=== PATIENT | female | born 1975 | race Caucasian/White ===

== ENCOUNTER 2016-08-11 14:20 | Outpatient (CLI) | payer BC, MEDICAID ==
[~2016-08-11] VITALS: Ht 165.1 cm; Wt 91.6 kg
[~2016-08-11 14:20] MED LIST: INSU100I13 SQ; INSU100I14 SQ
== END 2016-08-11 14:34 ==
LOC: PREOP 14:20
PROVIDERS: ATTEND Surgery
DX: Z01.818 Encounter for other preprocedural examination (principal); R11.2 Nausea with vomiting, unspecified; K92.1 Melena

== ENCOUNTER 2016-08-14 11:17 | Day surgery (SDC) | payer BC, MEDICAID ==
[2016-08-14 11:25] VITALS: BP 142/88
[2016-08-14] MEDS ORDERED: NALOXONE 0.4 MG/ML 1 ML (NARCAN) VIAL IVP PRN (11:30)
[2016-08-14] MEDS ORDERED: NS IV 500 ML 500 ML IV ONE (11:30)
[2016-08-14] MEDS ORDERED: FLUMAZENIL (ROMAZICON) 0.1 MG/ML 5 ML VIAL INJ PRN (11:30)
[2016-08-14] MEDS ORDERED: HURRICAINE EXT TUBE (BENZOCAINE) ONE (11:33)
--- NOTE | 2016-08-14 12:14 | Conscious Sedation/ASA ---
Conscious Sedation Pre-Proced Time Reviewed: 12:14 ASA Class: 2 Airway Mallampati Classification: ([place] appropriate class) I. II. III, IV Lungs Heart ASA score ASA 1: a normal healthy patient ASA 2: a patient with a mild systemic disease (mid diabetes, controlled hypertension, obesity ASA 3: a patient with a severe systemic disease that limits activity (angina , COPD, prior Myocardial infarction) ASA 4: a patient with an incapacitating disease that is a constant threat to life (CHF, renal failure) ASA 5: a moribund patient not expected to survive 24 hrs. (ruptured aneurysm) ASA 6: a declared brain patient whose organs are being harvested. For emergent operations, add the letter E after the classification Grade 2 Sedation Plan: Discussed options with patient/fam Note The patient is an appropriate candidate to undergo the planned procedure, sedation, and anesthesia. The patient immediately re-assessed prior to indication. KATELYNN DIAZ MD Aug 14, 2016 12:14 pm
--- NOTE | 2016-08-14 12:14 | Progress Note-Pre Operative ---
Pre-Operative Progress Note H&P Reviewed The H&P was reviewed, patient examined and no changes noted. Date H&P Reviewed: Aug 14, 2016 Time H&P Reviewed: 12:14 Pre-Operative Diagnosis: nausea vomiting. Blood in stools KATELYNN DIAZ MD Aug 14, 2016 12:14 pm
[2016-08-14] MEDS: fentaNYL INJECTION 100 MCG/2 ML AMP IVP PRN ×4 (12:15→12:35)
[2016-08-14] MEDS: MIDAZOLAM 2 MG/2 ML (VERSED) VIAL IVP PRN ×4 (12:16→12:32)
--- NOTE | 2016-08-14 12:52 | Progress Note-Post Operative ---
Post-Operative Progess Note Pre-Operative Diagnosis nausea vomiting. Blood in stools Post-Operative Diagnosis EGD: hiatal hernia with grade 2 esophagitis. Distal gastric ulcers 3 COLONOSCOPY: internal hemorrhoids Post-Op Procedure Note Date of Procedure: Aug 14, 2016 Name of Procedure: EGD with biopsy of gastric ulcer Colonoscopy to cecum Anesthesia Type sedation Specimen(s) collected mucosa of gastric ulcer KATELYNN DIAZ MD Aug 14, 2016 12:52 pm
[2016-08-14] MEDS ORDERED: PANT40TA2 PO (12:53)
--- NOTE | 2016-08-14 12:56 | Discharge Inst-Simple/Standard ---
Discharge Inst-Standard Discharge Medications New, Converted or Re-Newed RX: RX on Chart Patient Instructions/Follow Up Plan of Care/Instructions/FU: follow-up with Dr. Charla Tyson Activity as Tolerated: Yes Discharge Diet: No Restrictions KATELYNN DIAZ MD Aug 14, 2016 12:56 pm
--- NOTE | 2016-08-14 13:18 | PROCEDURE REPORT ---
PROCEDURE PHYSICIAN: KATELYNN DIAZ DATE OF PROCEDURE: 08/14/2016 PREOPERATIVE DIAGNOSIS: 1. Upper GI endoscopy with biopsy of gastric ulcer. 2. Colonoscopy. SURGEON: Chilo INDICATION FOR THE PROCEDURE: This lady came in for an upper endoscopy to evaluate epigastric pain with nausea and vomiting and for colonoscopy to investigate rectal bleeding. It is notable that she is HIV positive. Informed consent was obtained after reviewing the procedures in detail. DESCRIPTION OF PROCEDURE: 1. UPPER GI ENDOSCOPY/BIOPSY OF GASTRIC ULCER: She was placed in left lateral decubitus position and her vital signs were monitored. Conscious sedation was achieved using Versed and fentanyl. The flexible gastroscope was introduced down the esophagus, past the stomach, into the proximal duodenum. FINDINGS: ESOPHAGUS: A short hiatal hernia with grade 2 esophagitis. STOMACH: A total of 3 distal gastric ulcers ranging in diameter from 2 to 4 mm were found. Photo-documentation was obtained, followed by biopsy of the largest ulcer in a standard fashion. DUODENUM: Normal. She tolerated the procedure well and was turned around in preparation for colonoscopy. IMPRESSION: 1. Nausea and epigastric pain. 2. Distal gastric ulcers found. 3. Biopsies pending. 2. COLONOSCOPY: Digital rectal examination was unremarkable. The colonoscope was then introduced into the rectum and advanced to the cecum. The scope was then withdrawn slowly and the mucosa examined in a systematic fashion. FINDINGS: 1. Internal hemorrhoids, the source of her bleeding. 2. No polyps were found. She tolerated the procedures well and was taken back to the nursing area in a stable condition. IMPRESSION: Rectal bleeding due to hemorrhoids. Job ID: [id number] Dictated Date: 08/14/2016 12:48:16 Poultry Hatchery Man Date: 08/14/2016 13:10:18 / shena CHEUNG
[2016-08-14 13:49] VITALS: BP 117/87
[2016-08-14 13:50] VITALS: BP 117/87
--- OUTSIDE RECORDS SUMMARY | 2016-08-29 18:04 | XMS REPORT ---
Author Author Karen Oliver [facility] Address [address], [place] [id number] Care Team Providers Care Trade Facilitator Name Role Phone Karen Oliver Unavailable PROBLEMS Type Condition ICD9-CM Code LNM88-FQ Code Onset Dates Condition Status SNOMED Code Problem Cigarette nicotine dependence, uncomplicated F17.210 poorly- controlled 60414106 Problem Bloody feces K92.1 Active 630538270 Problem Back pain with left-sided sciatica M54.32 poorly-controlled 999278976 Problem Asymptomatic human immunodeficiency virus [HIV] infection status Z21 well-controlled 75761393 Problem Chronic viral hepatitis C B18.2 well-controlled 683643177 Problem Gastro-esophageal reflux disease without esophagitis K21.9 poorly-controlled 993864088 Problem Projectile vomiting with nausea R11.12 Active 3464080 Problem Type 2 diabetes mellitus with diabetic 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 poorly-controlled 45350338 Problem 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
--- OUTSIDE RECORDS SUMMARY | 2016-08-29 18:04 | XMS REPORT | Continuity of Care Document ---
Author Author [facility] Organization [facility] Address Unknown Phone Unavailable Care Team Providers Care Insulator Helper Name Role Phone Self, Referral PCP Unavailable Source Comments Some departments are not documenting in the electronic medical record. If you do not see the information that you expected, contact Release of Information in the Health Information Management department at [phone] for further assistance in locating additional records.[facility] Active Allergies and Adverse Reactions Allergen Noted Date Severity Reactions Comments Dilaudid 12/15/2009 ITCHING Current Medications Prescription Sig. Disp. Refills Start End Date Status Date Aspirin 81 mg Tab Take by mouth. Active INSULIN Inject 70 Units into Active GLARGINE,HUM.REC.ANLOG area(s) as directed Twice (LANTUS SC) Daily. INSULIN LISPRO (HUMALOG Inject 25 Units into Active SC) area(s) as directed Three Times Daily. quinapril,+, (ACCUPRIL) Take 40 mg by mouth At Active 20 mg tablet Bedtime Daily. atorvastatin (LIPITOR) 20 Take 20 mg by mouth Active mg tablet Daily. albuterol (PROVENTIL) 2 Take 2 mg by mouth Three Active mg tablet Times Daily. lorazepam (ATIVAN) 0.5 mg Take 0.5 mg by mouth Active tablet Twice Daily. Active Problems Not on file Social History Tobacco Use Types Packs/Day Years Used Date Current Every Day Smoker 0.25 Alcohol Use Drinks/Week oz/Week Comments No Last Filed Vital Signs Vital Sign Reading Time Taken Blood Pressure 183/82 01/17/2011 8:52 PM CDT Pulse 89 12/15/2009 8:40 PM CDT Temperature 36.9 C (98.4 F) 01/17/2011 8:52 PM CDT Respiratory Rate - - Height - - Weight - - Body Mass Index - - Oxygen Saturation 100% 01/17/2011 8:52 PM CDT Plan of Care Health Maintenance Due Date Last Done Comments Physical (Comprehensive) 1983 Exam Pertussis Vaccine 1987 Tetanus Vaccine 1993 Cervical Cancer Screening 1997 Breast Cancer Screening 2016 Influenza Vaccine 01/19/2017 Results from Last 3 Months Not on file
--- OUTSIDE RECORDS SUMMARY | 2016-08-29 18:05 | XMS REPORT ---
Author Author Maddie Souza [facility] Address [address], [place] [id number] Care Team Providers Care Neurophysiologist Name Role Phone Maddie Souza Unavailable PROBLEMS Type Condition ICD9-CM Code WMB85-XI Code Onset Dates Condition Status SNOMED Code Problem Cigarette nicotine dependence, uncomplicated F17.210 poorly- controlled 60025819 Problem Bloody feces K92.1 Active 971100735 Problem Back pain with left-sided sciatica M54.32 poorly-controlled 596664177 Problem Asymptomatic human immunodeficiency virus [HIV] infection status Z21 well-controlled 46088827 Problem Chronic viral hepatitis C B18.2 well-controlled 592585618 Problem Gastro-esophageal reflux disease without esophagitis K21.9 poorly-controlled 750503604 Problem Projectile vomiting with nausea R11.12 Active 4487185 Problem Type 2 diabetes mellitus with diabetic 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 poorly-controlled 53281077 Problem 

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
--- OUTSIDE RECORDS SUMMARY | 2016-08-29 18:05 | XMS REPORT ---
Author Author Maddie Souza [facility] Address [address], [place] [address] Care Team Providers Care Environmental Maintenance Worker Name Role Phone Maddie Souza Unavailable PROBLEMS Type Condition ICD9-CM Code [id number] Code Onset Dates Condition Status SNOMED Code Problem Cigarette nicotine dependence, uncomplicated F17.210 poorly- controlled 91140863 Problem Bloody feces K92.1 Active 075192565 Problem Back pain with left-sided sciatica M54.32 poorly-controlled 089653453 Problem Asymptomatic human immunodeficiency virus [HIV] infection status Z21 well-controlled 06723171 Problem Chronic viral hepatitis C B18.2 well-controlled 114503421 Problem Gastro-esophageal reflux disease without esophagitis K21.9 poorly-controlled 470046125 Problem Projectile vomiting with nausea R11.12 Active 5833500 Problem Type 2 diabetes mellitus with diabetic 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 poorly-controlled 77988823 Problem terminal supervisor 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.4 well-controlled [id number] ALLERGIES Unknown Allergies SOCIAL HISTORY No smoking Hx information available PLAN OF CARE VITAL SIGNS MEDICATIONS Unknown Medications RESULTS No Results PROCEDURES No Known procedures IMMUNIZATIONS No Known Immunizations
== END 2016-08-14 13:57 | disposition home or self-care (01) ==
LOC: DELPENDDIS → ENDO 11:17 → DELPENDDIS 13:50 → ENDO 13:57
PROVIDERS: ATTEND Surgery
DX: K64.8 Other hemorrhoids (principal); K25.7 Chronic gastric ulcer without hemorrhage or perforation; K20.8 Other esophagitis; Z21 Asymptomatic human immunodeficiency virus [HIV] infection status
CPT/HCPCS: 82962; 88305

== ENCOUNTER 2017-10-18 12:19 | Emergency (ER) | payer BC, MEDICAID ==
[~2017-10-18] VITALS: Ht 165.1 cm; Wt 95.3 kg
[~2017-10-18 12:19] MED LIST changes: +ALBU17AE23; +ASPI-84; +ATOR40TA PO; +BENZ100C8 PO; +DICY20TA57; +DOXY-13; +HYDR100C2 PO; +HYDR25CA92 PO; +INSASP10V; +INSU100C4; +LISI40TA; +LORA-794 PO; +NAPR250T PO; +OXYC-281; +PANT40TA2 PO; +QUIN20TA PO; +TRM50T PO
[2017-10-18 13:09] LABS: BASOPHILS % (AUTO) 0 % (0-10); EOSINOPHILS # (AUTO) 0.1 10^3/uL (0.0-0.3); EOSINOPHILS % (AUTO) 2 % (0-10); HEMATOCRIT 43 % (35-52); LYMPHOCYTES # (AUTO) 2.6 X 10^3 (1.0-4.0); LYMPHOCYTES % (AUTO) 35 % (12-44); MEAN CORPUSCULAR HEMOGLOBIN 30 PG (25-34); MEAN CORPUSCULAR HGB CONC 35 G/DL (32-36); MEAN CORPUSCULAR VOLUME 84 FL (80-99); MEAN PLATELET VOLUME 10.4 FL (7.4-10.4); MONOCYTES # (AUTO) 0.6 X 10^3 (0.0-1.0); MONOCYTES % (AUTO) 8 % (0-12); NEUTROPHILS # (AUTO) 4.2 X 10^3 (1.8-7.8); NEUTROPHILS % (AUTO) 55 % (42-75); PLATELET COUNT 253 10^3/uL (130-400); RED BLOOD COUNT 5.07 10^6/uL (4.35-5.85); WHITE BLOOD COUNT 7.5 10^3/uL (4.3-11.0)
[2017-10-18 13:15] LABS: BILIRUBIN,URINE NEGATIVE (NEGATIVE); CLARITY,URINE CLEAR; COLOR,URINE YELLOW; GLUCOSE, URINE (UA) 3+ (NEGATIVE); KETONES,URINE NEGATIVE (NEGATIVE); LEUKOCYTE ESTERASE ,URINE 1+ (NEGATIVE); NITRITE,URINE NEGATIVE (NEGATIVE); PH,URINE 6.5 (5-9); PROTEIN,URINE 1+ (NEGATIVE); UROBILINOGEN,URINE NORMAL (NORMAL)
[2017-10-18 13:25] LABS: BACTERIA,URINE NEGATIVE /HPF; RBC,URINE RARE /HPF; WBC,URINE RARE /HPF
[2017-10-18 13:27] LABS: ALANINE AMINOTRANSFERASE 16 U/L (0-55); ALBUMIN 4.2 GM/DL (3.2-4.5); ALKALINE PHOSPHATASE 79 U/L (40-136); BILIRUBIN,TOTAL 0.6 MG/DL (0.1-1.0); BUN/CREATININE RATIO 16; CALCIUM 9.7 MG/DL (8.5-10.1); CARBON DIOXIDE 25 MMOL/L (21-32); CHLORIDE 103 MMOL/L (98-107); CREATININE SERUM 0.68 MG/DL (0.60-1.30); GFR ESTIMATED > 60; GLUCOSE 212 MG/DL (70-105); POTASSIUM 4.5 MMOL/L (3.6-5.0); SODIUM 137 MMOL/L (135-145); TOTAL PROTEIN 7.8 GM/DL (6.4-8.2)
[2017-10-18] MEDS ORDERED: NS IV 1000 ML 1,000 ML IV SCH (13:45)
[2017-10-18] MEDS ORDERED: KETOROLAC 30 MG/ML VIAL IVP ONE (13:45)
[2017-10-18] MEDS ORDERED: ONDANSETRON 4 MG/2 ML (SDV) Z0FRAN IVP ONE (13:45)
--- NOTE | 2017-10-18 13:57 | ED GI ---
General Chief Complaint: Abdominal/GI Problems Stated Complaint: VOMITING Nursing Triage Note: PATIENT HAS HAD MIGRAINE X2 DAYS. LAST NIGHT SHE BEGAN VOMITTING AT 11PM. HAS VOMITTED MULTIPLE TIMES SINCE THEN. SHE ALSO HAS LOW ABDOMINAL CRAMPING. PATIENT RECENTLY DAGNOSED WITH BONE CANCER AND HAS NOT STARTED TREATMENT FOR IT. SHE IS ALSO 3 MONTHS INTO RECOVERY FROM CRACK, METH AND MARIJUANA USE. Sepsis Screen: No Definite Risk Source of Information: Patient Exam Limitations: No Limitations History of Present Illness Date Seen by Provider: October 18, 2017 Time Seen by Provider: 13:30 Initial Comments The patient is a 42-year-old white female who presents with a chief complaint of vomiting. She states that the she developed a headache and then began vomiting last night it approximately 2300. This continued throughout the night. She had a loose stool this morning. She reports that she has not previously had a history of headaches. She states that she was recently diagnosed as having bone cancer at a provider in [place]. This is not defined at this point and she has more testing to be done including a bone marrow biopsy. She has hepatitis C for which she took HARVONI and states that she has an undetectable viral load at this point. She has also seen by Dr. Charla Tyson from the [facility] branch for HIV. Timing/Duration: 12-24 Hours Severity/Quality: Moderate Allergies and Home Medications Allergies Coded Allergies: hydromorphone (Verified Allergy, Unknown, b/p and oxygen level drop, ) tramadol (Verified Allergy, Unknown, ANAPHYLAXIS, 08/11/16) Uncoded Allergies: air casts (Allergy, 11/09/16) Home Medications Hydroxyzine Pamoate 25 Mg Capsule, 25 MG PO BID, (Reported) Hydroxyzine Pamoate 100 Mg Capsule, 1 EACH PO HS, (Reported) Insulin Aspart 300 Units/3 Ml Solution, 0 SQ DAILY@1200, (Reported) sliding scale Insuln Asp Prt/Insulin Aspart 300 Units/3 Ml Solution, 30 UNITS SQ BID, ( Reported) Naproxen 250 Mg Tablet, 250 MG PO BID Prescribed by: TALI GOLDSMITH on 06/26/131517 Pantoprazole Sodium 40 Mg Tablet.dr, 40 MG PO DAILY Prescribed by: KATELYNN DIAZ on 08/14/16 1253 Tramadol Hcl 50 Mg Tab, 50 MG PO Q4H Prescribed by: TALI GOLDSMITH on 06/26/13 1518 Patient Home Medication List Home Medication List Reviewed: Yes Review of Systems Constitutional: see HPI EENTM: No Symptoms Reported Respiratory: No Symptoms Reported Cardiovascular: No Symptoms Reported Gastrointestinal: Vomiting Genitourinary: No Symptoms Reported Musculoskeletal: no symptoms reported Skin: no symptoms reported Psychiatric/Neurological: No Symptoms Reported Endocrine: No Symptoms Reported Hematologic/Lymphatic: No Symptoms Reported Past Irotkqo-Sxjhjn-Slquad Hx Patient Social History Drug of Choice: "POT" Type Used: Cigarettes Recent Foreign Travel: No Contact w/Someone Who Travel: No Recent Infectious Disease Expo: No Recent Hopitalizations: No Immunizations Up To Date Date of Pneumonia Vaccine: Feb 18, 2013 Date of Influenza Vaccine: Feb 19, 2016 Seasonal Allergies Seasonal Allergies: No Past Medical History Gallbladder, Tubal Ligation Asthma, COPD Seizure Disorder 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 Disorders: Yes HIV/AIDS: Yes Arthritis Eye Injury Anxiety, PTSD, Bipolar, Depression Physical Exam Vital Signs Vital Signs - First Documented 10/18/17 12:30 Temp 97.0 Pulse 95 Resp 18 B/P (MAP) 135/99 (111) Pulse Ox 97 Capillary Refill : Less Than 3 Seconds General Appearance: mild distress HEENT: normal ENT inspection Neck: full range of motion Respiratory: chest non-tender, lungs clear, normal breath sounds, no respiratory distress, no accessory muscle use Cardiovascular: normal peripheral pulses, regular rate, rhythm, no edema, no gallop, no JVD, no murmur Gastrointestinal: normal bowel sounds, non tender, soft, no organomegaly, no pulsatile mass Extremities: normal range of motion Pelvic: normal external exam, normal adnexa, no cerv. 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 nml as tested Progress/Results/Core Measures Results/Orders Lab Results Laboratory Tests Test 10/18/17 12:55 10/18/17 13:10 Range/Units White Blood Count 7.5 4.3-11.0 10^3/uL Red Blood Count 5.07 4.35-5.85 10^6/uL Hemoglobin 15.0 11.5-16.0 G/DL Hematocrit 43 35-52 % Mean Corpuscular Volume 84 80-99 FL Mean Corpuscular Hemoglobin 30 25-34 PG Mean Corpuscular Hemoglobin Concent 35 32-36 G/DL Red Cell Distribution Width 13.0 10.0-14.5 % Platelet Count 253 130-400 10^3/uL Mean Platelet Volume 10.4 7.4-10.4 FL Neutrophils (%) (Auto) 55 42-75 % Lymphocytes (%) (Auto) 35 12-44 % Monocytes (%) (Auto) 8 0-12 % Eosinophils (%) (Auto) 2 0-10 % Basophils (%) (Auto) 0 0-10 % Neutrophils # (Auto) 4.2 1.8-7.8 X 10^3 Lymphocytes # (Auto) 2.6 1.0-4.0 X 10^3 Monocytes # (Auto) 0.6 0.0-1.0 X 10^3 Eosinophils # (Auto) 0.1 0.0-0.3 10^3/uL Basophils # (Auto) 0.0 0.0-0.1 10^3/uL Sodium Level 137 135-145 MMOL/L Potassium Level 4.5 3.6-5.0 MMOL/L Chloride Level 103 98-107 MMOL/L Carbon Dioxide Level 25 21-32 MMOL/L Anion Gap 9 5-14 MMOL/L Blood Urea Nitrogen 11 7-18 MG/DL Creatinine 0.68 0.60-1.30 MG/DL Estimat Glomerular Filtration Rate > 60 BUN/Creatinine Ratio 16 Glucose Level 212 H 70-105 MG/DL Calcium Level 9.7 8.5-10.1 MG/DL Total Bilirubin 0.6 0.1-1.0 MG/DL Aspartate Amino Transf (AST/SGOT) 11 5-34 U/L Alanine Aminotransferase (ALT/SGPT) 16 0-55 U/L Alkaline Phosphatase 79 40-136 U/L Total Protein 7.8 6.4-8.2 GM/DL Albumin 4.2 3.2-4.5 GM/DL Urine Color YELLOW Urine Clarity CLEAR Urine pH 6.5 5-9 Urine Specific [place] 1.015 L 1.016-1.022 Urine Protein 1+ H NEGATIVE Urine Glucose (UA) 3+ H NEGATIVE Urine Ketones NEGATIVE NEGATIVE Urine Nitrite NEGATIVE NEGATIVE Urine Bilirubin NEGATIVE NEGATIVE Urine Urobilinogen NORMAL NORMAL MG/DL Urine Leukocyte Esterase 1+ H NEGATIVE Urine RBC (Auto) NEGATIVE NEGATIVE Urine RBC RARE /HPF Urine WBC RARE /HPF Urine Squamous Epithelial Cells 5-10 /HPF Urine Crystals NONE /LPF Urine Bacteria NEGATIVE /HPF Urine Casts NONE /LPF Urine Mucus SMALL H /LPF Urine Culture Indicated NO My Orders Orders - CARL ROJO MD Cbc With Automated Diff (10/18/17 12:35) Comprehensive Metabolic Panel (10/18/17 12:35) Ua Culture If Indicated (10/18/17 12:35) Ns Iv 1000 Ml (Sodium Chloride 0.9%) (10/18/17 13:45) Ketorolac Injection (Toradol Injection) (10/18/17 13:45) Ondansetron Injection (Zofran Injectio (10/18/17 13:45) Medications Given in ED Current Medications Medications Dose Ordered Sig/Randy Route Start Time Stop Time Status Last Admin Dose Admin Ketorolac Tromethamine 30 mg ONCE ONCE IVP 10/18/17 13:45 10/18/17 13:52 DC 10/18/17 14:20 30 MG Ondansetron HCl 8 mg ONCE ONCE IVP 10/18/17 13:45 10/18/17 13:52 DC 10/18/17 14:20 8 MG Vital Signs/I&O 10/18/17 12:30 Temp 97.0 Pulse 95 Resp 18 B/P (MAP) 135/99 (111) Pulse Ox 97 Blood Pressure Mean: 111 Departure Communication (Admissions) The patient reports she is feeling much better. She will be discharged Impression Primary Impression: nausea and vomiting. Disposition: 01 HOME, SELF-CARE Condition: Improved Departure-Patient Inst. Decision time for Depature: 15:16 [facility]errals: [facility] ([facility]Family) Primary Care Physician Patient Instructions: No Instuctions Given Add. Discharge Instructions: All discharge instructions reviewed with patient and/or family. Voiced understanding. Use Zofran as needed. Clear liquids only for the next 12 hours. If no vomiting during that period of time you may slowly and cautiously reintroduce food. Began with soda crackers and advance to broth soups. Next to mashed potatoes or steamed rice with only broth. At that point you may go to solid food in small amounts and without much seasoning. Scripts Ondansetron (Zofran Odt) 8 Mg Tab.rapdis 8 MG PO every 4 hours, #10 TAB Prov: CARL ROJO MD 10/18/17 CARL ROJO MD October 18, 2017 13:56
[2017-10-18] MEDS ORDERED: ONDA8TAB9 PO (15:24)
[2017-10-18 15:30] VITALS: BP 135/99
--- OUTSIDE RECORDS SUMMARY | 2017-10-18 17:10 | XMS REPORT | Clinical Summary ---
Author Author [facility] Organization [facility] Address Unknown Phone Unavailable Care Team Providers Care Laundry Equipment Operator Name Role Phone AlvarezBenja reed EMERGENCY TELECOMMUNICATIONS DISPATCHER Unavailable Yesi Escudero NP Unavailable Katharina Yarbrough RN Unavailable Unavailable Mian Barraza RN Unavailable Unavailable Milly Sy RN Unavailable Unavailable Self, Referral PCP Unavailable Source Comments Some departments are not documenting in the electronic medical record. If you do not see the information that you expected, contact Release of Information in the Health Information Management department at [phone] for further assistance in locating additional records.[facility] Allergies Active Allergy Reactions Severity Noted Date Comments Hydromorphone (Bulk) ITCHING 12/15/2009 Current Medications Prescription Sig. Disp. Refills Start [...] 0.25 Alcohol Use Drinks/Week oz/Week Comments No Sex Assigned at Date Recorded Not on file Last Filed Vital Signs Vital Sign Reading Time Taken Blood Pressure 183/82 01/17/2011 8:52 PM CDT Pulse 89 12/15/2009 8:40 PM CDT Temperature 36.9 C (98.4 F) 01/17/2011 8:52 PM CDT Respiratory Rate - - Oxygen Saturation 100% 01/17/2011 8:52 PM CDT Inhaled Oxygen - - Concentration Weight - - Height - - Body Mass Index - - Plan of Treatment Health Maintenance Due Date Last Done Comments PHYSICAL (COMPREHENSIVE) 1983 EXAM PERTUSSIS VACCINE 1987 HIV SCREENING 1991 TETANUS VACCINE 1993 CERVICAL CANCER SCREENING 2006 BREAST CANCER SCREENING 2016 INFLUENZA VACCINE 02/18/2018 Results Not on filefrom Last 3 Months
--- OUTSIDE RECORDS SUMMARY | 2017-10-18 17:10 | XMS REPORT ---
Author Author Maddie Souza [facility] Address [address], [place] [address] Care Team Providers Care Trial Consultant Name Role Phone Maddie Souza Unavailable PROBLEMS Type Condition ICD9-CM Code [id number] Code Onset Dates Condition Status SNOMED Code Problem detention 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.4 well-controlled 354453609 Problem Chronic viral hepatitis C B18.2 well-controlled 041998092 Problem Type 2 diabetes mellitus with diabetic 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 poorly-controlled 30165956 Problem Type 2 diabetes mellitus without complications E11.9 Active 527655855 Problem Asymptomatic human immunodeficiency virus (HIV) infection status Z21 Active 52824666 Problem Skin picking habit F42.4 Active 927784277 Problem Major depression, chronic F32.9 Active 632328584 Problem 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.891 Active 033684101 Problem Pain of cervical spine M54.2 Active 275423898 Problem Back pain with left-sided sciatica M54.32 poorly-controlled 604553727 Problem Bloody feces K92.1 Active 486402760 Assessment Asymptomatic human immunodeficiency virus (HIV) infection status Z21 September, Active 27466750 Problem Projectile vomiting with nausea R11.12 Active 9355136 Problem Cigarette nicotine dependence, uncomplicated F17.210 poorly- controlled 15334434 Problem Gastro-esophageal reflux disease without esophagitis K21.9 poorly-controlled 678315302 ALLERGIES Unknown Allergies SOCIAL HISTORY No smoking Hx information available PLAN OF CARE Activity Details Pending Test Human Immunodeficiency Virus (HIV-1), Quantitative, Real-time PCR (graph) 36074 Pending Test Hemoglobin A1c Pending Test Protein and Creatinine (ratio), Random Urine Pending Test Urinalysis (UA), Complete w/ Microscopic Exam 71300 Pending Test Microalbumin, Random Urine Pending Test Lipid Panel 62863 Pending Test Metabolic Panel (14), Comprehensive (CMP) 30030 Pending Test CD4/CD8 Ratio Profile 80307 Pending Test QMP Plus D/L (urine) Pending Test Opioid/Opiate Agreement (Annual) 3 Months,Reason: VITAL SIGNS Height 65.5 in 2016-09-29 Weight 206 lbs 2016-09-29 Temperature 96.5 degrees Fahrenheit 2016-09-29 Heart Rate 77 /min 2016-09-29 Respiratory Rate 18 /min 2016-09-29 Oximetry 99 % 2016-09-29 BMI 33.76 kg/m2 2016-09-29 Blood pressure systolic 126 mm Hg 2016-09-29 Blood pressure diastolic 86 mm Hg 2016-09-29 MEDICATIONS Medication Instructions Dosage Frequency Start Date End Date Duration Status Gabapentin 600 MG Orally Three times a day 1 capsule 8h September, 30 day(s) Active Tivicay 50 MG Orally Once a day 1 tablet 24h Aug, 30 day(s) Active Paxil 20 MG Orally Once a day 1 tablet in the morning 24h September, 30 day(s) Active Corinne 10-325 MG Orally every 4 hrs 1 tablet as needed 4h September, 15 days Active Bentyl 20 MG Orally Four times a day 1 tablet 6h September, 30 day(s ) Active Jefferson Breeze 2 Test - In Vitro 4 x daily as directed September, 30 days Active Jefferson Microlet Lancets - SQ 4 x daily as directed September, 30 days Active NovoLog Mix 70/30 (70-30) 100 UNIT/ML Subcutaneous BID 30 units 12h Active Diazepam 5 MG Orally Twice a day 1 tablet as needed 12h September, 15 days Active Descovy 200-25 mg Orally Once a day 1 Tablet 24h Aug, 30 days Active Bactrim DS 800-160 MG Orally Twice a day 1 tablet 12h September, 14 days Active Protonix 40 MG Orally Once a day 1 tablet 24h 11 Jun, 2016 30 day(s) Active Zofran ODT 8 MG Orally every 8 hrs 1 tablet on the tongue and allow to dissolve 8h Aug, 10 days Active Jefferson Breeze 2 System w/Device SQ 4 x day as directed September, 30 days Active RESULTS No Results PROCEDURES Procedure Date Ordered Related Diagnosis Body Site URINALYSIS, AUTO W/SCOPE SO September 29, 2016 Office Visit, Est Pt., Level 4 September 29, 2016 COMPREHEN METABOLIC PANEL September 29, 2016 T CELL, ABSOLUTE COUNT/RATIO September 29, 2016 ASSAY OF URINE CREATININE September 29, 2016 ASSAY OF PROTEIN, URINE September 29, 2016 Billed by outside source September 29, 2016 GLYCATED HEMOGLOBIN TEST SO September 29, 2016 HIV-1, DNA, QUANT September 29, 2016 MICROALBUMIN, QUANTITATIVE September 29, 2016 LIPID PANEL SO September 29, 2016 IMMUNIZATIONS No Known Immunizations
--- OUTSIDE RECORDS SUMMARY | 2017-10-18 17:10 | XMS REPORT ---
Author Author Maddie Souza [facility] Address [address], [place] [address] Care Team Providers Care Sheriff Sergeant Name Role Phone Maddie Souza Unavailable PROBLEMS Type Condition ICD9-CM Code [id number] Code Onset Dates Condition Status SNOMED Code Problem senior care 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.4 Active 601569708 Problem Chronic viral hepatitis C B18.2 Active 229190948 Problem Type 2 diabetes mellitus with diabetic 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 Active 94241136 Problem Type 2 diabetes mellitus without complications E11.9 Active 177461949 Problem Asymptomatic human immunodeficiency virus (HIV) infection status Z21 Active 29718167 Problem Skin picking habit F42.4 Active 492062464 Problem Major depression, chronic F32.9 Active 150061622 Problem manager intermediate 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.891 Active 577857189 Problem Pain of cervical spine M54.2 Active 673061000 Problem Back pain with left-sided sciatica M54.32 Active 912177109 Problem Bloody feces K92.1 Active 582668972 Problem Projectile vomiting with nausea R11.12 Active 4609138 Problem Cigarette nicotine dependence, uncomplicated F17.210 Active 78137052 Problem Gastro-esophageal reflux disease without esophagitis K21.9 Active 535367269 ALLERGIES Unknown Allergies SOCIAL HISTORY No smoking Hx information available PLAN OF CARE VITAL SIGNS MEDICATIONS Medication Instructions Dosage Frequency Start Date End Date Duration Status [place] 10-325 MG Orally every 4 hrs 1 tablet as needed 4h September, 15 days Active Mobile [employer] Software Contour Monitor w/Device as directed September, 30 days Active Paxil 20 MG Orally Once a day 1 tablet in the morning 24h September, 30 day(s) Active Bentyl 20 MG Orally Four times a day 1 tablet 6h September, 30 day(s ) Active Ondansetron 8 MG DISSOLVE ONE TABLET UNDER THE TONGUE EVERY 8 HOURS NEEDED X10 DAYS 10 Active Protonix 40 MG Orally Once a day 1 tablet 24h 11 Jun, 2016 30 day(s) Active NovoLog Mix 70/30 (70-30) 100 UNIT/ML Subcutaneous BID 30 units 12h Active Bactrim DS 800-160 MG Orally Twice a day 1 tablet 12h September, Dec, 14 days Active [place] 10-325 MG Orally every 4 hrs 1 tablet as needed 4h Jun, Jan, 30 days Active Jefferson Contour Test - In Vitro test blood sugar four times a day as directed September, 30 days Active Tivicay 50 MG Orally Once a day 1 tablet 24h Aug, 30 day(s) Active Jefferson Microlet Lancets - SQ 4 x daily as directed September, 30 days Active Gabapentin 600 MG Orally Three times a day 1 capsule 8h September, 30 day(s) Active Descovy 200-25 mg Orally Once a day 1 Tablet 24h Aug, 30 days Active Zofran ODT 8 MG Orally every 8 hrs 1 tablet on the tongue and allow to dissolve 8h Aug, 30 days Active RESULTS No Results PROCEDURES No Known procedures IMMUNIZATIONS No Known Immunizations
--- OUTSIDE RECORDS SUMMARY | 2017-10-18 17:10 | XMS REPORT ---
Author Author Maddie Souza [facility] Address [address], [place] [address] Care Team Providers Care Agency Appointments Supervisor Name Role Phone Maddie Souza Unavailable PROBLEMS Type Condition ICD9-CM Code [id number] Code Onset Dates Condition Status SNOMED Code Problem senior care 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.4 Active 931465982 Problem Chronic viral hepatitis C B18.2 Active 361744232 Problem Type 2 diabetes mellitus with diabetic 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 Active 91212395 Problem Type 2 diabetes mellitus without complications E11.9 Active 707497918 Problem Asymptomatic human immunodeficiency virus (HIV) infection status Z21 Active 09751739 Problem Skin picking habit F42.4 Active 565415535 Problem Major depression, chronic F32.9 Active 301465039 Problem technician terminal and repeater 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.891 Active 189323964 Problem Pain of cervical spine M54.2 Active 164065346 Problem Back pain with left-sided sciatica M54.32 Active 721942821 Problem Bloody feces K92.1 Active 057362472 Problem Projectile vomiting with nausea R11.12 Active 8308812 Problem Cigarette nicotine dependence, uncomplicated F17.210 Active 18454954 Problem Gastro-esophageal reflux disease without esophagitis K21.9 Active 599800558 ALLERGIES Unknown Allergies SOCIAL HISTORY No smoking Hx information available PLAN OF CARE VITAL SIGNS MEDICATIONS Medication Instructions Dosage Frequency Start Date End Date Duration Status [place] 10-325 MG Orally every 4 hrs 1 tablet as needed 4h Jun, Jan, 30 days Active Bactrim DS 800-160 MG Orally Twice a day 1 tablet 12h September, 2 Dec, 2016 14 days Active RESULTS No Results PROCEDURES No Known procedures IMMUNIZATIONS No Known Immunizations
--- OUTSIDE RECORDS SUMMARY | 2017-10-18 17:10 | XMS REPORT ---
Author Author Karen Oliver [facility] Address [address] [place], [place] [address] Care Team Providers Care Shellfish Harvester Name Role Phone Karen Oliver Unavailable PROBLEMS Type Condition ICD9-CM Code [id number] Code Onset Dates Condition Status SNOMED Code Problem ocean transportation intermediary 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.4 Active 667788585 Problem Chronic viral hepatitis C B18.2 Active 543391630 Problem Type 2 diabetes mellitus with diabetic 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 Active 27745760 Problem Cigarette nicotine dependence, uncomplicated F17.210 Active 55728233 Problem Back pain with left-sided sciatica M54.32 Active 681759226 Problem Gastro-esophageal reflux disease without esophagitis K21.9 Active 148407652 Problem 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 943794265 Problem Primary insomnia F51.01 Active 2152561 Problem Pain of cervical spine M54.2 Active 839416647 Problem Major depression, chronic F32.9 Active 770925243 Problem Asymptomatic human immunodeficiency virus (HIV) infection status Z21 Active 34044404 Problem half-way 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.891 Active 730120199 ALLERGIES Unknown Allergies SOCIAL HISTORY No smoking Hx information available PLAN OF CARE VITAL SIGNS MEDICATIONS Medication Instructions Dosage Frequency Start Date End Date Duration Status Bentyl 20 MG Orally Four times a day 1 tablet 6h September, 30 day(s ) Active Paxil 20 MG Orally Once a day 1 tablet in the morning 24h September, 30 day(s) Active Jefferson Contour Test - In Vitro test blood sugar four times a day as directed September, 30 days Active Descovy 200-25 mg Orally Once a day 1 Tablet 24h Aug, 30 days Active Tivicay 50 MG Orally Once a day 1 tablet 24h Aug, 30 day(s) Active Gabapentin 600 MG Orally Three times a day 1 capsule 8h September, 30 day(s) Active Jefferson Contour Monitor w/Device as directed September, 30 days Active Zofran ODT 8 MG Orally every 8 hrs 1 tablet on the tongue and allow to dissolve 8h Aug, 30 days Active [place] 10-325 MG Orally every 4 hrs 1 tablet as needed 4h Jun, Feb, 30 days Active Jefferson Microlet Lancets - SQ 4 x daily as directed September, 30 days Active Protonix 40 MG Orally Once a day 1 tablet 24h Jun, 30 day(s) Active NovoLog Mix 70/30 (70-30) 100 UNIT/ML Subcutaneous BID 30 units 12h Active RESULTS No Results PROCEDURES No Known procedures IMMUNIZATIONS No Known Immunizations
--- OUTSIDE RECORDS SUMMARY | 2017-10-18 17:10 | XMS REPORT ---
Author Author Maddie Souza [facility] Address [address] [place], [place] [address] Care Team Providers Care Packer Inspector Name Role Phone Maddie Souza Unavailable PROBLEMS Type Condition ICD9-CM Code [id number] Code Onset Dates Condition Status SNOMED Code Problem Cigarette nicotine dependence, uncomplicated F17.210 poorly- controlled 35514147 Problem Bloody feces K92.1 Active 707781860 Problem Back pain with left-sided sciatica M54.32 poorly-controlled 305662587 Assessment Encounter for screening mammogram for breast cancer Z12.31 September, Active 398385866 Problem Asymptomatic human immunodeficiency virus [HIV] infection status Z21 well-controlled 63555151 Problem Chronic viral hepatitis C B18.2 well-controlled 506755538 Problem Gastro-esophageal reflux disease without esophagitis K21.9 poorly-controlled 884257525 Problem Projectile vomiting with nausea R11.12 Active 1933767 Problem Type 2 diabetes mellitus with diabetic 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 poorly-controlled 75721051 Problem prison 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.4 well-controlled 417953184 ALLERGIES Unknown Allergies SOCIAL HISTORY No smoking Hx information available PLAN OF CARE Activity Details Pending Test MAMMOGRAM, SCREENING ,Reason: VITAL SIGNS MEDICATIONS Unknown Medications RESULTS No Results PROCEDURES No Known procedures IMMUNIZATIONS No Known Immunizations
--- OUTSIDE RECORDS SUMMARY | 2017-10-18 17:10 | XMS REPORT ---
Author Author Anel Rodriguez [facility] Address [address] [place] [address] [phone] Care Team Providers Care Abstractor Name Role Phone Anel Rodriguez Unavailable PROBLEMS Type Condition ICD9-CM Code DDD08-MR Code Onset Dates Condition Status SNOMED Code Problem retirement 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.4 Active 311553544 Problem retirement 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.891 Active 894421841 Problem Pain of cervical spine M54.2 Active 190129339 Problem Anxiety F41.9 Active 46116272 Problem Mild intermittent asthma without complication J45.20 Active 934257159 Problem Major depression, chronic F32.9 Active 617431963 Problem Asymptomatic human immunodeficiency virus (HIV) infection status Z21 Active 56923419 Problem 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 222396573 Problem Primary insomnia F51.01 Active 6199764 Problem Back pain with left-sided sciatica M54.32 Active 758377283 Problem Gastro-esophageal reflux disease without esophagitis K21.9 Active 111583001 Problem Chronic viral hepatitis C B18.2 Active 491414116 Problem Type 2 diabetes mellitus with diabetic 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 Active 15997581 Problem Cigarette nicotine dependence, uncomplicated F17.210 Active 23528394 ALLERGIES No Information ENCOUNTERS Encounter Location Date Diagnosis [facility] [address] [place] [address] [id number] September, [facility] [address] [place] [id number] Aug, [facility] [address] [place] [id number] Aug, Asymptomatic human immunodeficiency virus (HIV) infection status Z21 ; Nausea R11.0 ; Type 2 diabetes mellitus with diabetic 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 ; Hot flashes R23.2 ; Pain of cervical spine M54.2 ; Anxiety F41.9 and Mild intermittent asthma without complication J45.[address] [address] Aug, Type 2 diabetes mellitus with diabetic 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 [facility] [address] [place] [address] [phone] Aug, Asymptomatic human immunodeficiency virus (HIV) infection status Z21 [facility] [address] [place] [address] [id number] May, [address] [address] Jan, Back pain with left-sided sciatica M54.[address] [address] Dec, Back pain with left-sided sciatica M54.32 [facility] [address] [place], [place] [phone] Dec, Asymptomatic human immunodeficiency virus (HIV) infection status Z21 ; 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 ; Chronic hepatitis C B18.2 ; Type 2 diabetes mellitus with diabetic 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 ; Back pain with left-sided sciatica M54.32 ; Cigarette nicotine dependence, uncomplicated F17.210 ; Major depression, chronic F32.9 and Primary insomnia F51.[address] [address] Nov, Back pain with left-sided sciatica M54.[address] [address] Nov, Skin picking habit F42.4 and Back pain with left-sided sciatica M54.[address] [address] Oct, [address] [address] Oct, Back pain with left-sided sciatica M54.32 and Pain of cervical spine M54.[address] [address] 14 Oct, [address] [address] Oct, [address] [address] Oct, Back pain with left-sided sciatica M54.[address] [address] September, Back pain with left-sided sciatica M54.[address] [address] September, Type 2 diabetes mellitus with diabetic 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 [facility] [address] [place], [place] [phone] September, Asymptomatic human immunodeficiency virus (HIV) infection status Z21 ; Type 2 diabetes mellitus without complications E11.9 ; 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 ; Projectile vomiting with nausea R11.12 ; Gastro-esophageal reflux disease without esophagitis K21.9 ; Cigarette nicotine dependence, uncomplicated F17.210 ; Back pain with left- sided sciatica M54.32 ; Pain of cervical spine M54.2 ; Skin picking habit F42.4 and Major depression, chronic F32.9 [facility] [address] [place] [phone] September, Encounter for screening mammogram for breast cancer Z12.[address] [address] Aug, [address] [address] Aug, [address] [address] Aug, Projectile vomiting with nausea R11.[address] [address] Aug, Projectile vomiting with nausea R11.[address] [address] Aug, Back pain with left-sided sciatica M54.[address] [address] Aug, Back pain with left-sided sciatica M54.[address] [address] Jul, Back pain with left-sided sciatica M54.32 and Asymptomatic human immunodeficiency virus [HIV] infection status Z21 [facility] [address] [place] [address] Jul, [facility] [address] [place] [address] Jul, Back pain with left-sided sciatica M54.32 [facility] [address] [place] [address] Jun, [facility] [address] [place] [address] Jun, [facility] [address] [place] [phone] Jun, Asymptomatic human immunodeficiency virus (HIV) infection status Z21 ; Chronic viral hepatitis C B18.2 ; Type 2 diabetes mellitus with diabetic 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 ; Type 2 diabetes mellitus with hyperglycemia E11.65 ; fire control mechanic 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.4 ; Gastro- esophageal reflux disease without esophagitis K21.9 ; Projectile vomiting with nausea R11.12 ; Bloody feces K92.1 ; Back pain with left-sided sciatica M54.32 and Cigarette nicotine dependence, uncomplicated F17.210 [facility] [address] [place] [address] Jan, [facility] [address] [id number] Oct, [facility] [address] [phone] September, [facility] [address] [place] [address] Aug, [facility] [address] [place] [address] Jun, [facility] [address] [place] [address] May, IMMUNIZATIONS No Known Immunizations SOCIAL HISTORY Never Assessed REASON FOR VISIT eye exam PLAN OF CARE VITAL SIGNS MEDICATIONS Unknown Medications RESULTS No Results PROCEDURES No Known procedures INSTRUCTIONS MEDICATIONS ADMINISTERED No Known Medications
--- OUTSIDE RECORDS SUMMARY | 2017-10-18 17:10 | XMS REPORT ---
Author Author Maddie Souza [facility] Address [address] [place], [place] [phone] Care Team Providers Care Rn Urgent Care Name Role Phone Maddie Souza Unavailable PROBLEMS Type Condition ICD9-CM Code RFO53-QK Code Onset Dates Condition Status SNOMED Code Problem Cigarette nicotine dependence, uncomplicated F17.210 poorly- controlled 93070476 Problem Bloody feces K92.1 Active 620188894 Problem Back pain with left-sided sciatica M54.32 poorly-controlled 271901308 Problem Asymptomatic human immunodeficiency virus [HIV] infection status Z21 well-controlled 09646023 Problem Chronic viral hepatitis C B18.2 well-controlled 868138573 Problem Gastro-esophageal reflux disease without esophagitis K21.9 poorly-controlled 872018069 Problem Projectile vomiting with nausea R11.12 Active 9151476 Problem Type 2 diabetes mellitus with diabetic 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 poorly-controlled 94059562 Problem detention 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.4 well-controlled 036022069 ALLERGIES Unknown Allergies SOCIAL HISTORY No smoking Hx information available PLAN OF CARE VITAL SIGNS MEDICATIONS Medication Instructions Dosage Frequency Start Date End Date Duration Status Protonix 40 MG Orally Once a day 1 tablet 24h Jun, 30 day(s) Active Carafate 1 GM Orally four a day 1 tablet on an empty stomach Jun, 30 day(s) Active Cyclobenzaprine HCl 10 MG Orally Three times a day 1 tablet 8h Jun, 10 days Active Descovy 200-25 mg Orally Once a day 1 Tablet 24h Aug, 30 days Active NovoLog Mix 70/30 (70-30) 100 UNIT/ML Subcutaneous BID 30 units 12h Active Tivicay 50 MG Orally Once a day 1 tablet 24h Aug, 30 day(s) Active Zofran ODT 8 MG Orally every 8 hrs 1 tablet on the tongue and allow to dissolve 8h Aug, 10 days Active Florence 10-325 MG Orally every 8 hrs 1 tablet as needed 8h Jun, September, 30 days Active RESULTS No Results PROCEDURES No Known procedures IMMUNIZATIONS No Known Immunizations
--- OUTSIDE RECORDS SUMMARY | 2017-10-18 17:10 | XMS REPORT ---
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.4 Active 620553766 Problem Chronic viral hepatitis C B18.2 Active 116123202 Problem Type 2 diabetes mellitus with diabetic 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 Active 73172795 Problem Type 2 diabetes mellitus without complications E11.9 Active 549988399 Problem Asymptomatic human immunodeficiency virus (HIV) infection status Z21 Active 45643074 Problem Skin picking habit F42.4 Active 038300558 Problem Major depression, chronic F32.9 Active 848425272 Problem terminal operator 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.891 Active 689963468 Problem Pain of cervical spine M54.2 Active 650355080 Problem Back pain with left-sided sciatica M54.32 Active 791487989 Problem Bloody feces K92.1 Active 175636065 Problem Projectile vomiting with nausea R11.12 Active 2481781 Problem Cigarette nicotine dependence, uncomplicated F17.210 Active 86323098 Problem Gastro-esophageal reflux disease without esophagitis K21.9 Active 592432829 ALLERGIES Unknown Allergies SOCIAL HISTORY No smoking Hx information available PLAN OF CARE VITAL SIGNS MEDICATIONS Unknown Medications RESULTS No Results PROCEDURES No Known procedures IMMUNIZATIONS No Known Immunizations
--- OUTSIDE RECORDS SUMMARY | 2017-10-18 17:10 | XMS REPORT ---
Author Author Maddie Souza [facility] Address [address] [place], [place] [id number] Care Team Providers Care Base Loader Name Role Phone Maddie Souza Unavailable PROBLEMS Type Condition ICD9-CM Code HJO59-CM Code Onset Dates Condition Status SNOMED Code Problem penitentiary 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.4 Active 801433308 Problem Chronic viral hepatitis C B18.2 Active 442493501 Problem Type 2 diabetes mellitus with diabetic 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 Active 80781720 Problem Type 2 diabetes mellitus without complications E11.9 Active 349043633 Problem Asymptomatic human immunodeficiency virus (HIV) infection status Z21 Active 50290127 Problem Skin picking habit F42.4 Active 905189002 Problem Major depression, chronic F32.9 Active 003349518 Problem 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 Active 658552352 Problem Pain of cervical spine M54.2 Active 857303588 Problem Back pain with left-sided sciatica M54.32 Active 741486862 Problem Bloody feces K92.1 Active 509793357 Problem Projectile vomiting with nausea R11.12 Active 7710034 Problem Cigarette nicotine dependence, uncomplicated F17.210 Active 49156385 Problem Gastro-esophageal reflux disease without esophagitis K21.9 Active 228928952 ALLERGIES Unknown Allergies SOCIAL HISTORY No smoking Hx information available PLAN OF CARE VITAL SIGNS MEDICATIONS Medication Instructions Dosage Frequency Start Date End Date Duration Status [place] 10-325 MG Orally every 8 hrs 1 tablet as needed 8h Jun, Oct, 30 days Active RESULTS No Results PROCEDURES No Known procedures IMMUNIZATIONS No Known Immunizations
--- OUTSIDE RECORDS SUMMARY | 2017-10-18 17:11 | XMS REPORT ---
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 Active 705371960 Problem Chronic viral hepatitis C B18.2 Active 775863080 Problem Type 2 diabetes mellitus with diabetic 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 Active 63145670 Problem Type 2 diabetes mellitus without complications E11.9 Active 354874467 Problem Asymptomatic human immunodeficiency virus (HIV) infection status Z21 Active 02879050 Problem Skin picking habit F42.4 Active 894093281 Problem Major depression, chronic F32.9 Active 699923721 Problem 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 Active 587958372 Problem Pain of cervical spine M54.2 Active 595816937 Problem Back pain with left-sided sciatica M54.32 Active 102212451 Problem Bloody feces K92.1 Active 765110756 Problem Projectile vomiting with nausea R11.12 Active 6321956 Problem Cigarette nicotine dependence, uncomplicated F17.210 Active 96110774 Problem Gastro-esophageal reflux disease without esophagitis K21.9 Active 928672640 ALLERGIES Unknown Allergies SOCIAL HISTORY No smoking Hx information available PLAN OF CARE VITAL SIGNS MEDICATIONS Unknown Medications RESULTS No Results PROCEDURES No Known procedures IMMUNIZATIONS No Known Immunizations
--- OUTSIDE RECORDS SUMMARY | 2017-10-18 17:11 | XMS REPORT ---
Author Author Karen Oliver [facility] Address [address] [place], [place] [id number] Care Team Providers Care Head Grinder Name Role Phone Karen Oliver Unavailable PROBLEMS Type Condition ICD9-CM Code EXZ71-SF Code Onset Dates Condition Status SNOMED Code Problem terminal system operator 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.4 Active 013486592 Problem Chronic viral hepatitis C B18.2 Active 367772090 Problem Type 2 diabetes mellitus with diabetic 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 Active 15620957 Problem Cigarette nicotine dependence, uncomplicated F17.210 Active 36477259 Problem Back pain with left-sided sciatica M54.32 Active 440149932 Problem Gastro-esophageal reflux disease without esophagitis K21.9 Active 464245502 Problem 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 783561982 Problem Primary insomnia F51.01 Active 7179643 Problem Pain of cervical spine M54.2 Active 660754422 Problem Major depression, chronic F32.9 Active 824149841 Problem Asymptomatic human immunodeficiency virus (HIV) infection status Z21 Active 94584861 Problem [facility] 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.891 Active 864497201 ALLERGIES No Information SOCIAL HISTORY Never Assessed PLAN OF CARE VITAL SIGNS MEDICATIONS Medication Instructions Dosage Frequency Start Date End Date Duration Status Gabapentin 600 MG Orally Three times a day 1 capsule 8h September, 30 day(s) Active Paxil 20 MG Orally Once a day 1 tablet in the morning 24h September, 30 day(s) Active Tivicay 50 MG Orally Once a day 1 tablet 24h Aug, 30 day(s) Active NovoLog Mix 70/30 (70-30) 100 UNIT/ML Subcutaneous BID 30 units 12h Active Zofran ODT 8 MG Orally every 8 hrs 1 tablet on the tongue and allow to dissolve 8h Aug, 30 days Active Protonix 40 MG Orally Once a day 1 tablet 24h Jun, 30 day(s) Active Descovy 200-25 mg Orally Once a day 1 Tablet 24h Aug, 30 days Active Jefferson Microlet Lancets - SQ 4 x daily as directed September, 30 days Active Wellbe Contour Monitor w/Device as directed September, 30 days Active Bentyl 20 MG Orally Four times a day 1 tablet 6h September, 30 day(s ) Active Aurora 10-325 MG Orally every 4 hrs 1 tablet as needed 4h Jun, Mar, 30 days Active Jefferson Contour Test - In Vitro test blood sugar four times a day as directed September, 30 days Active RESULTS No Results PROCEDURES No Known procedures IMMUNIZATIONS No Known Immunizations
--- OUTSIDE RECORDS SUMMARY | 2017-10-18 17:11 | XMS REPORT ---
Author Author Karen Oliver Organization [facility] Address [address] [place], [place] [id number] Care Team Providers Care Information Technology Specialist Name Role Phone Karen Oliver Unavailable PROBLEMS Type Condition ICD9-CM Code TUH08-TM Code Onset Dates Condition Status SNOMED Code Problem Back pain with left-sided sciatica M54.32 Active 851002142 Problem Chronic viral hepatitis C B18.2 Active 913658754 Problem Gastro-esophageal reflux disease without esophagitis K21.9 Active 122805206 Problem Type 2 diabetes mellitus with diabetic 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 Active 50343590 Problem Cigarette nicotine dependence, uncomplicated F17.210 Active 60911788 Problem senior care 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.4 Active 460531942 Problem Primary insomnia F51.01 Active 3263029 Problem 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 [address] [place] [address] Jan, Back pain with left-sided sciatica M54.[address] [address] Dec, Back pain with left-sided sciatica M54.32 [facility] [address] [place], [place] [phone] Dec, Asymptomatic human immunodeficiency virus (HIV) infection status Z21 ; intermediate manager 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.891 ; Chronic hepatitis C B18.2 ; Type 2 diabetes mellitus with diabetic 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 ; Back pain with left-sided sciatica M54.32 ; Cigarette nicotine dependence, uncomplicated F17.210 ; Major depression, chronic F32.9 and Primary insomnia F51.[address] [address] Nov, Back pain with left-sided sciatica M54.[address] [address] Nov, Skin picking habit F42.4 and Back pain with left-sided sciatica M54.[address] [address] Oct, [address] [address] Oct, Back pain with left-sided sciatica M54.32 and Pain of cervical spine M54.[address] [address] 14 Oct, [address] [address] Oct, [address] [address] Oct, Back pain with left-sided sciatica M54.[address] [address] September, Back pain with left-sided sciatica M54.[address] [address] September, Type 2 diabetes mellitus with diabetic 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 [facility] [address] [place] [phone] September, Asymptomatic human immunodeficiency virus (HIV) infection status Z21 ; Type 2 diabetes mellitus without complications E11.9 ; intermediate manager 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.891 ; Projectile vomiting with nausea R11.12 ; Gastro-esophageal reflux disease without esophagitis K21.9 ; Cigarette nicotine dependence, uncomplicated F17.210 ; Back pain with left- sided sciatica M54.32 ; Pain of cervical spine M54.2 ; Skin picking habit F42.4 and Major depression, chronic F32.9 [facility] [address] [place] [phone] September, Encounter for screening mammogram for breast cancer Z12.[address] [address] Aug, [address] [address] Aug, [address] [address] Aug, Projectile vomiting with nausea R11.[address] [address] Aug, Projectile vomiting with nausea R11.[address] [address] Aug, Back pain with left-sided sciatica M54.[address] [address] Aug, Back pain with left-sided sciatica M54.[address] [address] Jul, Back pain with left-sided sciatica M54.32 and Asymptomatic human immunodeficiency virus [HIV] infection status Z21 [address] [address] Jul, [address] [address] Jul, Back pain with left-sided sciatica M54.[address] [address] Jun, [address] [address] Jun, [facility] [address] [place] [phone] Jun, Asymptomatic human immunodeficiency virus (HIV) infection status Z21 ; Chronic viral hepatitis C B18.2 ; Type 2 diabetes mellitus with diabetic 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 ; Type 2 diabetes mellitus with hyperglycemia E11.65 ; senior care 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.4 ; Gastro- esophageal reflux disease without esophagitis K21.9 ; Projectile vomiting with nausea R11.12 ; Bloody feces K92.1 ; Back pain with left-sided sciatica M54.32 and Cigarette nicotine dependence, uncomplicated F17.[address] [facility] [address] [place] [address] Jan, [facility] [address] [phone] Oct, [facility] [address] [facility] [address] [place] [phone] September, [facility] [address] [place] [address] Aug, [facility] [address] [place] [address] Jun, [facility] [address] [place] [address] May, IMMUNIZATIONS No Known Immunizations SOCIAL HISTORY Never Assessed REASON FOR VISIT Historical Documentation PLAN OF CARE VITAL SIGNS MEDICATIONS Unknown Medications RESULTS No Results PROCEDURES No Known procedures INSTRUCTIONS MEDICATIONS ADMINISTERED No Known Medications
--- OUTSIDE RECORDS SUMMARY | 2017-10-18 17:11 | XMS REPORT ---
Author Author Maddie Souza [facility] Address [address] [place] [address], [place] [id number] Care Team Providers Care Outside Sales Associate Name Role Phone Maddie Souza Unavailable PROBLEMS Type Condition ICD9-CM Code [id number] Code Onset Dates Condition Status SNOMED Code Problem residential 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.4 well-controlled 640165445 Problem Chronic viral hepatitis C B18.2 well-controlled 712562795 Problem Type 2 diabetes mellitus with diabetic 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 poorly-controlled 49917187 Problem Type 2 diabetes mellitus without complications E11.9 Active 966370621 Problem Asymptomatic human immunodeficiency virus (HIV) infection status Z21 Active 68952566 Problem Skin picking habit F42.4 Active 227337735 Problem Major depression, chronic F32.9 Active 823266514 Problem 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 string maker 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.891 Active 372212139 Problem Pain of cervical spine M54.2 Active 176593933 Problem Back pain with left-sided sciatica M54.32 poorly-controlled 821690983 Problem Bloody feces K92.1 Active 005628867 Assessment Type 2 diabetes mellitus with diabetic 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 15 Sep, 2016 Active 02499519 Problem Projectile vomiting with nausea R11.12 Active 9905306 Problem Cigarette nicotine dependence, uncomplicated F17.210 poorly- controlled 19194939 Problem Gastro-esophageal reflux disease without esophagitis K21.9 poorly-controlled 300021768 ALLERGIES Unknown Allergies SOCIAL HISTORY No smoking Hx information available PLAN OF CARE VITAL SIGNS MEDICATIONS Medication Instructions Dosage Frequency Start Date End Date Duration Status NovoLog Mix 70/30 (70-30) 100 UNIT/ML Subcutaneous BID 30 units 12h Active [place] 10-325 MG Orally every 4 hrs 1 tablet as needed 4h September, 15 days Active Protonix 40 MG Orally Once a day 1 tablet 24h Jun, 30 day(s) Active Tivicay 50 MG Orally Once a day 1 tablet 24h Aug, 30 day(s) Active Bactrim DS 800-160 MG Orally Twice a day 1 tablet 12h September, 14 days Active Paxil 20 MG Orally Once a day 1 tablet in the morning 24h September, 30 day(s) Active Jefferson Microlet Lancets - SQ 4 x daily as directed September, 30 days Active Descovy 200-25 mg Orally Once a day 1 Tablet 24h Aug, 30 days Active Bentyl 20 MG Orally Four times a day 1 tablet 6h September, 30 day(s ) Active Gabapentin 600 MG Orally Three times a day 1 capsule 8h September, 30 day(s) Active [employer] Contour Monitor w/Device as directed September, 30 days Active Zofran ODT 8 MG Orally every 8 hrs 1 tablet on the tongue and allow to dissolve 8h Aug, 10 days Active Diazepam 5 MG Orally Twice a day 1 tablet as needed 12h September, 15 days Active [employer] Contour Test - In Vitro test blood sugar four times a day as directed September, 30 days Active RESULTS No Results PROCEDURES No Known procedures IMMUNIZATIONS No Known Immunizations
--- OUTSIDE RECORDS SUMMARY | 2017-10-18 17:11 | XMS REPORT ---
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.4 Active 948977822 Problem Chronic viral hepatitis C B18.2 Active 006624312 Problem Type 2 diabetes mellitus with diabetic 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 Active 38356373 Problem Type 2 diabetes mellitus without complications E11.9 Active 811078930 Problem Asymptomatic human immunodeficiency virus (HIV) infection status Z21 Active 65810367 Problem Skin picking habit F42.4 Active 433452699 Problem Major depression, chronic F32.9 Active 830926666 Problem medical terminologist 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.891 Active 418871492 Problem Pain of cervical spine M54.2 Active 062188849 Problem Back pain with left-sided sciatica M54.32 Active 630251371 Problem Bloody feces K92.1 Active 192574426 Problem Projectile vomiting with nausea R11.12 Active 9700394 Problem Cigarette nicotine dependence, uncomplicated F17.210 Active 48325897 Problem Gastro-esophageal reflux disease without esophagitis K21.9 Active 220125460 ALLERGIES Unknown Allergies SOCIAL HISTORY No smoking Hx information available PLAN OF CARE VITAL SIGNS MEDICATIONS Unknown Medications RESULTS No Results PROCEDURES No Known procedures IMMUNIZATIONS No Known Immunizations
--- OUTSIDE RECORDS SUMMARY | 2017-10-18 17:11 | XMS REPORT ---
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 Active 11005371 Problem Type 2 diabetes mellitus without complications E11.9 Active 417479247 Problem Asymptomatic human immunodeficiency virus (HIV) infection status Z21 Active 31577880 Problem Skin picking habit F42.4 Active 148562428 Problem Major depression, chronic F32.9 Active 882952368 Problem 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 Active 429285798 Problem Pain of cervical spine M54.2 Active 528567346 Problem Back pain with left-sided sciatica M54.32 Active 187093250 Problem Bloody feces K92.1 Active 025161896 Problem Projectile vomiting with nausea R11.12 Active 6041972 Problem Cigarette nicotine dependence, uncomplicated F17.210 Active 80927447 Problem Gastro-esophageal reflux disease without esophagitis K21.9 Active 484420891 ALLERGIES Unknown Allergies SOCIAL HISTORY No smoking Hx information available PLAN OF CARE VITAL SIGNS MEDICATIONS Medication Instructions Dosage Frequency Start Date End Date Duration Status Paxil 20 MG Orally Once a day 1 tablet in the morning 24h September, 30 day(s) Active Protonix 40 MG Orally Once a day 1 tablet 24h Jun, 30 day(s) Active Bentyl 20 MG Orally Four times a day 1 tablet 6h September, 30 day(s ) Active Jefferson Contour Monitor w/Device as directed September, 30 days Active Jefferson Contour Test - In Vitro test blood sugar four times a day as directed September, 30 days Active Bactrim DS 800-160 MG Orally Twice a day 1 tablet 12h September, 14 days Active [place] 10-325 MG Orally every 4 hrs 1 tablet as needed 4h September, 15 days Active Descovy 200-25 mg [...] dissolve 8h Aug, 10 days Active Jefferson Microlet Lancets - SQ 4 x daily as directed September, 30 days Active Gabapentin 600 MG Orally Three times a day 1 capsule 8h September, 30 day(s) Active [place] 10-325 MG Orally every 4 hrs 1 tablet as needed 4h Jun, Oct, 30 days Active RESULTS No Results PROCEDURES No Known procedures IMMUNIZATIONS No Known Immunizations
--- OUTSIDE RECORDS SUMMARY | 2017-10-18 17:11 | XMS REPORT ---
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 Active 129683913 Problem Chronic viral hepatitis C B18.2 Active 145808763 Problem Type 2 diabetes mellitus with diabetic 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 Active 16624321 Problem Type 2 diabetes mellitus without complications E11.9 Active 762927047 Problem Asymptomatic human immunodeficiency virus (HIV) infection status Z21 Active 83554850 Problem Skin picking habit F42.4 Active 505922580 Problem Major depression, chronic F32.9 Active 892265543 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 Active 386979232 Problem Pain of cervical spine M54.2 Active 910480404 Problem Back pain with left-sided sciatica M54.32 Active 415736693 Problem Bloody feces K92.1 Active 276365718 Problem Projectile vomiting with nausea R11.12 Active 5201516 Problem Cigarette nicotine dependence, uncomplicated F17.210 Active 37816835 Problem Gastro-esophageal reflux disease without esophagitis K21.9 Active 499228989 ALLERGIES Unknown Allergies SOCIAL HISTORY No smoking Hx information available PLAN OF CARE VITAL SIGNS MEDICATIONS Unknown Medications RESULTS No Results PROCEDURES No Known procedures IMMUNIZATIONS No Known Immunizations
--- OUTSIDE RECORDS SUMMARY | 2017-10-18 17:11 | XMS REPORT ---
Author Author Maddie Souza [facility] Address [address], [place] [address] Care Team Providers Care Extrusion Die Template Maker Name Role Phone Maddie Souza Unavailable PROBLEMS Type Condition ICD9-CM Code HEV14-GE Code Onset Dates Condition Status SNOMED Code Problem Cigarette nicotine dependence, uncomplicated F17.210 poorly- controlled 61521844 Problem Bloody feces K92.1 Active 039283581 Problem Back pain with left-sided sciatica M54.32 poorly-controlled 956706820 Assessment Back pain with left-sided sciatica M54.32 Aug, Active 649729997 Problem Asymptomatic human immunodeficiency virus [HIV] infection status Z21 well-controlled 15066750 Problem Chronic viral hepatitis C B18.2 well-controlled 164107726 Problem Gastro-esophageal reflux disease without esophagitis K21.9 poorly-controlled 852675256 Problem Projectile vomiting with nausea R11.12 Active 8270203 Problem Type 2 diabetes mellitus with diabetic 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 poorly-controlled 45004836 Problem [facility] 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.4 well-controlled 655242518 ALLERGIES Unknown Allergies SOCIAL HISTORY No smoking Hx information available PLAN OF CARE VITAL SIGNS MEDICATIONS Medication Instructions Dosage Frequency Start Date End Date Duration Status [place] 10-325 MG Orally every 8 hrs 1 tablet as needed 8h Jun, September, 30 days Active RESULTS No Results PROCEDURES No Known procedures IMMUNIZATIONS No Known Immunizations
--- OUTSIDE RECORDS SUMMARY | 2017-10-18 17:11 | XMS REPORT ---
Author Author Maddie Souza [facility] Address [address] [place], [place] [address] Care Team Providers Care Education Reporter Name Role Phone Maddie Souza Unavailable PROBLEMS Type Condition ICD9-CM Code ROC52-HD Code Onset Dates Condition Status SNOMED Code Problem Cigarette nicotine dependence, uncomplicated F17.210 poorly- controlled 48274677 Problem Bloody feces K92.1 Active 327581597 Problem Back pain with left-sided sciatica M54.32 poorly-controlled 330088064 Problem Asymptomatic human immunodeficiency virus [HIV] infection status Z21 well-controlled 14070594 Problem Chronic viral hepatitis C B18.2 well-controlled 231555340 Problem Gastro-esophageal reflux disease without esophagitis K21.9 poorly-controlled 069580687 Problem Projectile vomiting with nausea R11.12 Active 0546562 Problem Type 2 diabetes mellitus with diabetic 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 poorly-controlled 31509457 Problem 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
--- OUTSIDE RECORDS SUMMARY | 2017-10-18 17:11 | XMS REPORT ---
Author Author Maddie Souza [facility] Address [address] [place], [place] [id number] Care Team Providers Care Plant Maintenance Mechanic Name Role Phone Maddie Souza Unavailable PROBLEMS Type Condition ICD9-CM Code PVE70-IZ Code Onset Dates Condition Status SNOMED Code Problem Cigarette nicotine dependence, uncomplicated F17.210 poorly- controlled 96145050 Problem Bloody feces K92.1 Active 171991873 Problem Back pain with left-sided sciatica M54.32 poorly-controlled 571545880 Problem Asymptomatic human immunodeficiency virus [HIV] infection status Z21 well-controlled 90509379 Problem Chronic viral hepatitis C B18.2 well-controlled 080719976 Problem Gastro-esophageal reflux disease without esophagitis K21.9 poorly-controlled 262260777 Problem Projectile vomiting with nausea R11.12 Active 2200557 Problem Type 2 diabetes mellitus with diabetic 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 poorly-controlled 72410374 Problem penitentiary 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.4 well-controlled 732745306 ALLERGIES Unknown Allergies SOCIAL HISTORY No smoking Hx information available PLAN OF CARE VITAL SIGNS MEDICATIONS Medication Instructions Dosage Frequency Start Date End Date Duration Status [place] 10-325 MG Orally every 8 hrs 1 tablet as needed 8h Jun, September, 30 days Active NovoLog Mix 70/30 (70-30) 100 UNIT/ML Subcutaneous BID 30 units 12h Active Descovy 200-25 mg Orally Once a day 1 Tablet 24h Aug, 30 days Active Zofran 8 MG Orally three a day 1 tablet Jun, 10 days Active Cyclobenzaprine HCl 10 MG Orally Three times a day 1 tablet 8h Jun, 10 days Active Tivicay 50 MG Orally Once a day 1 tablet 24h Aug, 30 day(s) Active Protonix 40 MG Orally Once a day 1 tablet 24h Jun, 30 day(s) Active Carafate 1 GM Orally four a day 1 tablet on an empty stomach Jun, 30 day(s) Active RESULTS No Results PROCEDURES No Known procedures IMMUNIZATIONS No Known Immunizations
--- OUTSIDE RECORDS SUMMARY | 2017-10-18 17:11 | XMS REPORT ---
Author Author Maddie Souza [facility] Address [address], [place] [id number] Care Team Providers Care Set Rider Name Role Phone Maddie Souza Unavailable PROBLEMS Type Condition ICD9-CM Code IBH12-FU Code Onset Dates Condition Status SNOMED Code Problem [facility] 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.4 Active 396301528 Problem Chronic viral hepatitis C B18.2 Active 209870395 Problem Type 2 diabetes mellitus with diabetic 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 Active 62008366 Problem Cigarette nicotine dependence, uncomplicated F17.210 Active 02422751 Problem Back pain with left-sided sciatica M54.32 Active 477473429 Problem Gastro-esophageal reflux disease without esophagitis K21.9 Active 532859231 Problem 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 003263186 Problem Primary insomnia F51.01 Active 0713878 Problem Pain of cervical spine M54.2 Active 406984421 Problem Major depression, chronic F32.9 Active 495358698 Problem Asymptomatic human immunodeficiency virus (HIV) infection status Z21 Active 24251854 Problem 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 Active 438878412 ALLERGIES Unknown Allergies SOCIAL HISTORY No smoking Hx information available PLAN OF CARE Activity Details Follow Up 3 Months Reason:null Pending Test Human Immunodeficiency Virus (HIV-1), Quantitative, Real-time PCR (graph) 39574 Pending Test Alpha-Fetoprotein (AFP), Tumor Marker (Serial Monitor) 90522 Pending Test Hemoglobin A1c Pending Test Protein and Creatinine (ratio), Random Urine Pending Test Urinalysis (UA), Complete w/ Microscopic Exam 12243 Pending Test Microalbumin, Random Urine Pending Test Lipid Panel 89995 Pending Test Metabolic Panel (14), Comprehensive (CMP) 62672 Pending Test CD4/CD8 Ratio Profile 61060 Pending Test Hepatitis C (HCV) RNA, Qual, KAIN 37633 Pending Test QMP Plus D/L (urine) VITAL SIGNS Height 65.5 in 2016-12-29 Weight 212 lbs 2016-12-29 Temperature 97.2 degrees Fahrenheit 2016-12-29 Heart Rate 72 /min 2016-12-29 Respiratory Rate 16 /min 2016-12-29 Oximetry 97 % 2016-12-29 BMI 34.74 kg/m2 2016-12-29 Blood pressure systolic 142 mm Hg 2016-12-29 Blood pressure diastolic 90 mm Hg 2016-12-29 MEDICATIONS Medication Instructions Dosage Frequency Start Date End Date Duration Status Descovy 200-25 mg Orally Once a day 1 Tablet 24h Aug, 30 days Active Protonix 40 MG Orally Once a day 1 tablet 24h Jun, 30 day(s) Active Tivicay 50 MG Orally Once a day 1 tablet 24h Aug, 30 day(s) Active [place] 10-325 MG Orally every 4 hrs 1 tablet as needed 4h Jun, Jan, 30 days Active Paxil 20 MG Orally Once a day 1 tablet in the morning 24h September, 30 day(s) Active Shortlist Contour Monitor w/Device as directed September, 30 days Active NovoLog Mix 70/30 (70-30) 100 UNIT/ML Subcutaneous BID 30 units 12h Active Zofran ODT 8 MG Orally every 8 hrs 1 tablet on the tongue and allow to dissolve 8h Aug, 30 days Active Bentyl 20 MG Orally Four times a day 1 tablet 6h September, 30 day(s ) Active [employer] Contour Test - In Vitro test blood sugar four times a day as directed September, 30 days Active Shortlist Microlet Lancets - SQ 4 x daily as directed September, 30 days Active Gabapentin 600 MG Orally Three times a day 1 capsule 8h September, 30 day(s) Active RESULTS No Results PROCEDURES Procedure Date Ordered Related Diagnosis Body Site ASSAY OF PROTEIN, URINE Dec 29, 2016 ALPHA-FETOPROTEIN, SERUM Dec 29, 2016 GLYCATED HEMOGLOBIN TEST SO Dec 29, 2016 LIPID PANEL SO Dec 29, 2016 GLYCATED HEMOGLOBIN TEST SO Dec 29, 2016 MICROALBUMIN, QUANTITATIVE Dec 29, 2016 Venipuncture Dec 29, 2016 ASSAY OF URINE CREATININE Dec 29, 2016 LIPID PANEL SO Dec 29, 2016 COMPREHEN METABOLIC PANEL Dec 29, 2016 ASSAY OF PROTEIN, URINE Dec 29, 2016 ASSAY OF URINE CREATININE Dec 29, 2016 T CELL, ABSOLUTE COUNT/RATIO Dec 29, 2016 Billed by outside source Dec 29, 2016 URINALYSIS, AUTO W/SCOPE SO Dec 29, 2016 Office Visit, Est Pt., Level 4 Dec 29, 2016 IMMUNIZATIONS No Known Immunizations
== END 2017-10-18 15:38 | disposition home or self-care (01) ==
LOC: EDUNIT# 12:19 → ER 12:21
DX: R11.2 Nausea with vomiting, unspecified (principal); B19.20 Unspecified viral hepatitis C without hepatic coma; J44.9 Chronic obstructive pulmonary disease, unspecified; G40.909 Epilepsy, unspecified, not intractable, without status epilepticus; F41.9 Anxiety disorder, unspecified; F43.10 Post-traumatic stress disorder, unspecified; F31.9 Bipolar disorder, unspecified; Z88.8 Allergy status to other drugs, medicaments and biological substances; Z88.6 Allergy status to analgesic agent; Z79.4 Long term (current) use of insulin; Z98.51 Tubal ligation status
CPT/HCPCS: 36415; 80053; 81000; 85025; 96361; 96374; 96375

== ENCOUNTER 2017-11-17 20:26 | Emergency (ER) | payer MEDICAID ==
[~2017-11-17] VITALS: Ht 165.1 cm; Wt 94.8 kg
[~2017-11-17 20:26] MED LIST changes: +ONDA8TAB9 PO
[2017-11-17] MEDS ORDERED: NS IV 1000 ML 1,000 ML IV SCH (20:51)
[2017-11-17] MEDS ORDERED: fentaNYL INJECTION 100 MCG/2 ML AMP IVP ONE (21:00)
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
[2017-11-17 21:16] LABS: BASOPHILS % (AUTO) 0 % (0-10); EOSINOPHILS % (AUTO) 0 % (0-10); HEMATOCRIT 39 % (35-52); LYMPHOCYTES # (AUTO) 3.2 X 10^3 (1.0-4.0); LYMPHOCYTES % (AUTO) 26 % (12-44); MEAN CORPUSCULAR HEMOGLOBIN 30 PG (25-34); MEAN CORPUSCULAR HGB CONC 36 G/DL (32-36); MEAN CORPUSCULAR VOLUME 84 FL (80-99); MEAN PLATELET VOLUME 10.6 FL (7.4-10.4); MONOCYTES # (AUTO) 0.7 X 10^3 (0.0-1.0); MONOCYTES % (AUTO) 6 % (0-12); NEUTROPHILS # (AUTO) 8.1 X 10^3 (1.8-7.8); NEUTROPHILS % (AUTO) 68 % (42-75); PLATELET COUNT 264 10^3/uL (130-400); RED BLOOD COUNT 4.68 10^6/uL (4.35-5.85); RED CELL DISTRIBUTION WIDTH 13.3 % (10.0-14.5)
[2017-11-17 21:16] LABS: BILIRUBIN,URINE NEGATIVE (NEGATIVE); CLARITY,URINE CLEAR; COLOR,URINE YELLOW; GLUCOSE, URINE (UA) 4+ (NEGATIVE); KETONES,URINE NEGATIVE (NEGATIVE); LEUKOCYTE ESTERASE ,URINE NEGATIVE (NEGATIVE); NITRITE,URINE NEGATIVE (NEGATIVE); PH,URINE 7 (5-9); PROTEIN,URINE NEGATIVE (NEGATIVE); UROBILINOGEN,URINE NORMAL (NORMAL)
[2017-11-17 21:28] LABS: BACTERIA,URINE NEGATIVE /HPF; RBC,URINE RARE /HPF; SQUAMOUS EPITHELIAL CELL,UR 0-2 /HPF; WBC,URINE RARE /HPF
[2017-11-17 21:34] LABS: AMPHETAMINE SCREEN, URINE NEGATIVE (NEGATIVE); BARBITURATE SCREEN URINE NEGATIVE (NEGATIVE); BENZODIAZEPINES SCREEN URINE NEGATIVE (NEGATIVE); CANNABINOID SCREEN, URINE NEGATIVE (NEGATIVE); COCAINE SCREEN URINE NEGATIVE (NEGATIVE); METHADONE STAT NEGATIVE (NEGATIVE); METHAMPHETAMINE SCREEN URINE S NEGATIVE (NEGATIVE); OPIATE SCREEN URINE NEGATIVE (NEGATIVE); OXYCODONE STAT NEGATIVE (NEGATIVE); PROPOXYPHENE STAT NEGATIVE (NEGATIVE); TRICYCLIC ANTIDEPRESSANTS SCRE NEGATIVE (NEGATIVE)
[2017-11-17 21:39] LABS: ALANINE AMINOTRANSFERASE 14 U/L (0-55); ALBUMIN 4.3 GM/DL (3.2-4.5); ALKALINE PHOSPHATASE 79 U/L (40-136); BILIRUBIN,TOTAL 0.4 MG/DL (0.1-1.0); BUN/CREATININE RATIO 12; CARBON DIOXIDE 21 MMOL/L (21-32); CHLORIDE 98 MMOL/L (98-107); CREATININE SERUM 0.76 MG/DL (0.60-1.30); GFR ESTIMATED > 60; POTASSIUM 4.5 MMOL/L (3.6-5.0); SODIUM 133 MMOL/L (135-145); TOTAL PROTEIN 7.5 GM/DL (6.4-8.2)
[2017-11-17 21:40] LABS: GLUCOSE 473 MG/DL (70-105)
--- NOTE | 2017-11-17 22:09 | Diagnostic Imaging Report ---
INDICATION: Facial numbness, neck pain, short of breath, COPD EXAMINATION: Two-view chest 11/17/2017 COMPARISON: 11/30/2009 FINDINGS: There is a rounded nodule 18 mm in size in the right midlung. Remaining lungs appear clear. There are no effusions. No pneumothorax. Heart and pulmonary vasculature unremarkable. IMPRESSION: 1. Suspected mass in the right midlung, new since previous imaging. CT imaging recommended. Dictated by: Dictated on workstation # [id number]
--- NOTE | 2017-11-17 22:17 | Diagnostic Imaging Report ---
INDICATION: Face numbness, neck pain. EXAMINATION: CT head face and cervical spine, 11/17/2017. COMPARISON: Previous from 11/30/2009. FINDINGS: There is no acute hemorrhage or infarct. No mass, mass effect or midline shift. There is no hydrocephalus. The calvarium is intact. No acute sinus disease appreciated. Mastoid air cells are grossly unremarkable. IMPRESSION: No acute intracranial process. CT CERVICAL SPINE: Grade 1 anterolisthesis of C3 on C4 and C4 on C5 most likely on a degenerative basis. Remaining alignment preserved. No definite acute fracture is seen with intervertebral disc space narrowing and anterior and posterior spurring, most marked at C6-C7. 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 No acute fracture is appreciated. Multilevel diffuse facet hypertrophy noted. Lung apices are clear. Prevertebral soft tissues demonstrate no acute abnormalities a few scattered slightly prominent lymph nodes in the neck, bilaterally, are nonspecific. Clinical correlation and followup to assure resolution recommended. IMPRESSION: 1. No acute osseous abnormality with incidental findings, as above, as well as degenerative disease. 2. Somewhat prominent lymph nodes, bilaterally, in the neck. See above recommendations. CT FACIAL BONES: No fracture is appreciated. There are no air-fluid levels within the visualized sinuses. Mild deviation of nasal septum noted towards the left with spurring also noted, chronic in appearance. The nasopharynx demonstrates mild soft tissue prominence, posteriorly, perhaps enlarged adenoids. Clinical correlation recommended. Oropharynx is unremarkable. IMPRESSION: 1. No acute osseous abnormality within the facial region. 2. Mild prominence in the soft tissues, posteriorly, in the nasopharynx, see above discussion and correlate with history. Dictated by: Dictated on workstation # [id number]
[2017-11-17] MEDS ORDERED: ACET-2267 PO (22:46)
[2017-11-17] MEDS ORDERED: METH35.42 TP (22:46)
[2017-11-17 22:56] VITALS: BP 135/88
== END 2017-11-17 22:56 | disposition home or self-care (01) ==
LOC: EDUNIT# 20:26 → ER 20:28
DX: M54.2 Cervicalgia (principal); M54.9 Dorsalgia, unspecified; R51 Headache; J44.9 Chronic obstructive pulmonary disease, unspecified; G40.909 Epilepsy, unspecified, not intractable, without status epilepticus; E11.9 Type 2 diabetes mellitus without complications; F41.9 Anxiety disorder, unspecified; F43.10 Post-traumatic stress disorder, unspecified; F31.9 Bipolar disorder, unspecified; F12.90 Cannabis use, unspecified, uncomplicated; F17.210 Nicotine dependence, cigarettes, uncomplicated; Z98.51 Tubal ligation status; Z21 Asymptomatic human immunodeficiency virus [HIV] infection status; Z88.6 Allergy status to analgesic agent; Z79.4 Long term (current) use of insulin
CPT/HCPCS: 36415; 70450; 70486; 71046; 72125; 80053; 80306; 81000; 83605; 84703; 85025; 86141; 86308; 87430; 96361; 96374

== ENCOUNTER 2017-11-23 20:38 | Emergency (ER) | payer MEDICAID ==
[~2017-11-23 20:38] MED LIST changes: +ACET-2267 PO; +METH35.42 TP
--- OUTSIDE RECORDS SUMMARY | 2017-11-23 20:43 | XMS REPORT | Clinical Summary ---
Author Author [facility] Organization [facility] Address Unknown Phone Unavailable Care Team Providers Care Manufacture Specialist Name Role Phone AlvarezBenja reed SENIOR ANALYTIC CONSULTANT Unavailable Yesi Escudero NP Unavailable Katharina Yarbrough RN Unavailable Unavailable Mian Barraza RN Unavailable Unavailable Milly Sy RN Unavailable Unavailable Self, Referral PCP Unavailable Source Comments Some departments are not documenting in the electronic medical record. If you do not see the information that you expected, contact Release of Information in the Health Information Management department at [phone] for further assistance in locating additional records.[facility] Allergies Active Allergy Reactions Severity Noted [...]
== END 2017-11-23 22:28 | disposition left against medical advice (07) ==
LOC: EDUNIT# 20:38 → ER 20:38
DX: N76.4 Abscess of vulva (principal)

== ENCOUNTER → 2017-11-28 | Outpatient (CLI) | payer MEDICAID, OTHER ==
[~2017-11-28] MED LIST changes: +RT-ALBUTEROL SULF 2.5 MG/3 ML PRE-MIX VIAL INH ONE; +RT-ALBUTEROL SULF 2.5 MG/3 ML PRE-MIX VIAL ONE
--- NOTE | 2017-11-28 15:15 | Diagnostic Imaging Report ---
INDICATION: Shortness of air. TECHNIQUE: Two view chest 3:21 PM CORRELATION STUDY: 11/17/2017 FINDINGS: The heart size, mediastinal configuration and pulmonary vasculature are within normal limits. 17 mm nodule right mid lung unchanged. Remaining lung kang are clear. Visualized osseous structures are unremarkable. IMPRESSION: 1. Stable nodule the right mid lung field which neoplasm not excluded. CT imaging recommended if not already performed. Dictated by: Dictated on workstation # [id number]
== END ==
LOC: RT 13:23
PROVIDERS: ATTEND Neuromusculoskeletal Medicine, Sports Medicine
DX: Z02.71 Encounter for disability determination (principal)
CPT/HCPCS: 71046; 94060

== ENCOUNTER 2017-12-18 16:15 | Emergency (ER) | payer MEDICAID ==
[~2017-12-18] VITALS: Ht 165.1 cm; Wt 94.8 kg
[~2017-12-18 16:15] MED LIST changes: -RT-ALBUTEROL SULF 2.5 MG/3 ML PRE-MIX VIAL INH ONE; -RT-ALBUTEROL SULF 2.5 MG/3 ML PRE-MIX VIAL ONE
--- OUTSIDE RECORDS SUMMARY | 2017-12-18 16:19 | XMS REPORT | Clinical Summary ---
Author Author [facility] Organization [facility] Address Unknown Phone Unavailable Care Team Providers Care Diesel Automotive Technician Name Role Phone AlvarezBenja reed COUNSELOR AT LAW Unavailable Yesi Escudero NP Unavailable Katharina Yarbrough RN Unavailable Unavailable Mian Barraza RN Unavailable Unavailable Milly Sy RN Unavailable Unavailable Self, Referral PCP Unavailable Source Comments Some departments are not documenting in the electronic medical record. If you do not see the information that you expected, contact Release of Information in the Health Information Management department at [phone] for further assistance in locating additional records.[facility] Allergies Active Allergy Reactions Severity Noted [...]
--- OUTSIDE RECORDS SUMMARY | 2017-12-18 16:21 | XMS REPORT ---
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.891 Active 177332984 Problem Pain of cervical spine M54.2 Active 739595062 Problem Anxiety F41.9 Active 68517930 Problem Mild intermittent asthma without complication J45.20 Active 867165135 Problem Major depression, chronic F32.9 Active 376236139 Problem Asymptomatic human immunodeficiency virus (HIV) infection status Z21 Active 94412210 Problem 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 693985517 Problem Primary insomnia F51.01 Active 3604689 Problem Back pain with left-sided sciatica M54.32 Active 587282764 Problem Gastro-esophageal reflux disease without esophagitis K21.9 Active 954988824 Problem Chronic viral hepatitis C B18.2 Active 225299793 Problem Type 2 diabetes mellitus with diabetic 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 Active 48919639 Problem Cigarette nicotine dependence, uncomplicated F17.210 Active 27808191 ALLERGIES No Information ENCOUNTERS Encounter Location Date Diagnosis [address] [address] Oct, [facility] [address] [place] [phone] September, Asymptomatic human immunodeficiency virus (HIV) infection status Z21 [address] [address] September, [address] [address] September, Anxiety F41.9 ; Hot flashes R23.2 and Pain of cervical spine M54.2 [facility] [address] [phone] September, [facility] [address] [place] [id number] Aug, [address] [id number] Aug, Asymptomatic human immunodeficiency virus (HIV) infection status Z21 ; Nausea R11.0 ; Type 2 diabetes mellitus with diabetic 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 ; Hot flashes R23.2 ; Pain of cervical spine M54.2 ; Anxiety F41.9 and Mild intermittent asthma without complication J45.[address] [address] Aug, Type 2 diabetes mellitus with diabetic 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 [phone] Aug, Asymptomatic human immunodeficiency virus (HIV) infection status Z21 [address] [id number] May, [address] [address] Jan, Back pain with left-sided sciatica M54.[address] [address] Dec, Back pain with left-sided sciatica M54.[address] [id number] Dec, Asymptomatic human immunodeficiency virus (HIV) infection status Z21 ; terminal computer operator 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.891 ; Chronic hepatitis C B18.2 ; Type 2 diabetes mellitus with diabetic 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 ; Back pain with left-sided sciatica M54.32 ; Cigarette nicotine dependence, uncomplicated F17.210 ; Major depression, chronic F32.9 and Primary insomnia F51.[address] [address] Nov, Back pain with left-sided sciatica M54.[address] [address] Nov, Skin picking habit F42.4 and Back pain with left-sided sciatica M54.[address] [address] Oct, [address] [address] Oct, Back pain with left-sided sciatica M54.32 and Pain of cervical spine M54.[address] [address] 14 Oct, [address] [address] Oct, [address] [address] Oct, Back pain with left-sided sciatica M54.[address] [address] September, Back pain with left-sided sciatica M54.[address] [address] September, Type 2 diabetes mellitus with diabetic 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 [facility] [place], [facility] [address] [place], [place] [phone] September, Asymptomatic human immunodeficiency virus (HIV) infection status Z21 ; Type 2 diabetes mellitus without complications E11.9 ; terminal computer operator 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.891 ; Projectile vomiting with nausea R11.12 ; Gastro-esophageal reflux disease without esophagitis K21.9 ; Cigarette nicotine dependence, uncomplicated F17.210 ; Back pain with left- sided sciatica M54.32 ; Pain of cervical spine M54.2 ; Skin picking habit F42.4 and Major depression, chronic F32.9 [facility] [address] [place] [phone] September, Encounter for screening mammogram for breast cancer Z12.[address] [address] Aug, [address] [address] Aug, [address] [address] Aug, Projectile vomiting with nausea R11.12 [facility] [address] [place] [address] Aug, Projectile vomiting with nausea R11.12 [facility] [address] [place] [phone] Aug, Back pain with left-sided sciatica M54.32 [facility] [address] [place] [phone] Aug, Back pain with left-sided sciatica M54.32 [facility] [address] [place] [address] Jul, Back pain with left-sided sciatica M54.32 and Asymptomatic human immunodeficiency virus [HIV] infection status Z21 [facility] [address] [place] [phone] Jul, [address] [address] Jul, Back pain with left-sided sciatica M54.32 [facility] [address] [place] [phone] Jun, [address] [address] Jun, [facility] [place], [facility] [address] [place], [place] [phone] Jun, Asymptomatic human immunodeficiency virus (HIV) infection status Z21 ; Chronic viral hepatitis C B18.2 ; Type 2 diabetes mellitus with diabetic 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 ; Type 2 diabetes mellitus with hyperglycemia E11.65 ; terminal computer operator 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.4 ; Gastro- esophageal reflux disease without esophagitis K21.9 ; Projectile vomiting with nausea R11.12 ; Bloody feces K92.1 ; Back pain with left-sided sciatica M54.32 and Cigarette nicotine dependence, uncomplicated F17.210 [facility] [address] [place] [phone] Jan, [facility] [address] [facility] [address] [place], [place] [phone] Oct, [facility] [address] [facility] [address] [place] [phone] September, [facility] [address] [place] [address] Aug, [facility] [address] [place] [address] Jun, [facility] [address] [place] [address] May, IMMUNIZATIONS No Known Immunizations SOCIAL HISTORY Never Assessed REASON FOR VISIT Cancer testing PLAN OF CARE VITAL SIGNS MEDICATIONS Unknown Medications RESULTS No Results PROCEDURES No Known procedures INSTRUCTIONS MEDICATIONS ADMINISTERED No Known Medications
[2017-12-18] MEDS ORDERED: NITROGLYCERIN 0.4 MG SL TABS BTL 25'S SL PRN (16:30)
[2017-12-18] MEDS ORDERED: ASPIRIN 81 MG CHEW (CHILDREN'S ASA) PO ONE (16:30)
[2017-12-18] MEDS ORDERED: HEParin 1000 UNIT/ML (10ML VIAL) FOR BOLUS ONE (16:34)
[2017-12-18 16:40] LABS: BASOPHILS % (AUTO) 0 % (0-10); EOSINOPHILS % (AUTO) 0 % (0-10); HEMATOCRIT 41 % (35-52); HEMOGLOBIN 14.2 G/DL (11.5-16.0); LYMPHOCYTES # (AUTO) 2.4 X 10^3 (1.0-4.0); LYMPHOCYTES % (AUTO) 21 % (12-44); MEAN CORPUSCULAR HEMOGLOBIN 29 PG (25-34); MEAN CORPUSCULAR HGB CONC 34 G/DL (32-36); MEAN CORPUSCULAR VOLUME 85 FL (80-99); MEAN PLATELET VOLUME 11.1 FL (7.4-10.4); MONOCYTES % (AUTO) 9 % (0-12); NEUTROPHILS % (AUTO) 70 % (42-75); PLATELET COUNT 249 10^3/uL (130-400); RED CELL DISTRIBUTION WIDTH 13.5 % (10.0-14.5); WHITE BLOOD COUNT 11.4 10^3/uL (4.3-11.0)
--- NOTE | 2017-12-18 16:42 | ED Chest Pain ---
General Stated Complaint: CHEST PAIN;LEFT ARM NUMB Source: patient Exam Limitations: no limitations History of Present Illness Date Seen by Provider: Dec 18, 2017 Time Seen by Provider: 16:23 Initial Comments Here with report of chest pain with left arm numbness. Onset at 1 p.m. today. Denies breathing problems or sweating. Is HIV positive and is on antivirals and reports taking those as directed. Does have history of diabetes and high cholesterol and has smoked for a long time. Never had anything like this before. Pain is moderate and persisted now. Timing/Duration: 1-3 hours Severity/Quality: moderate Location: central Radiation: arms Activities at Onset: none Prior CP/Workup: no prior chest pain Modifying Factors: improves with rest ASA po PAINT STOCKMAN: No NTG SL PAINT STOCKMAN: No Associated Symptoms: No abdominal pain; back pain; No diaphoresis, No fever/ chills, No shortness of breath, No weakness Allergies and Home Medications Allergies Coded Allergies: hydromorphone (Verified Allergy, Unknown, b/p and oxygen level drop, ) tramadol (Verified Allergy, Unknown, ANAPHYLAXIS, 08/11/16) Uncoded Allergies: air casts (Allergy, Unknown, 11/28/17) Home Medications Acetaminophen 500 Mg Tablet, 1,000 MG PO Q8H PRN for BREAKTHROUGH PAIN Prescribed by: CHAPARRO KELLEY on 11/17/172245 Hydroxyzine Pamoate 25 Mg Capsule, 25 MG PO BID, (Reported) Hydroxyzine Pamoate 100 Mg Capsule, 1 EACH PO HS, (Reported) Insulin Aspart 300 Units/3 Ml Solution, 0 SQ DAILY@1200, (Reported) sliding scale Insuln Asp Prt/Insulin Aspart 300 Units/3 Ml Solution, 30 UNITS SQ BID, ( Reported) Methyl Salicylate/Menthol 35.4 Gm Cream..g., 1 GM TP Q4H PRN for PAIN-MILD TO MODERATE Prescribed by: CHAPARRO KELLEY on 11/17/172245 Naproxen 250 Mg Tablet, 250 MG PO BID Prescribed by: TALI GOLDSMITH on 06/26/13 1518 Ondansetron 8 Mg Tab.rapdis, 8 MG PO every 4 hours Prescribed by: CARL ROJO on 10/18/17 1524 Pantoprazole Sodium 40 Mg Tablet.dr, 40 MG PO DAILY Prescribed by: KATELYNN DIAZ on 08/14/16 1253 Tramadol Hcl 50 Mg Tab, 50 MG PO Q4H Prescribed by: TALI GOLDSMITH on 06/26/13 1518 Patient Home Medication List Home Medication List Reviewed: Yes Review of Systems Constitutional: see HPI; No chills, No fever EENTM: No Symptoms Reported Respiratory: No Symptoms Reported Cardiovascular: See HPI, Chest Pain; Denies Edema, Denies Irregular Heart Rate Gastrointestinal: No Symptoms Reported Genitourinary: No Symptoms Reported Musculoskeletal: no symptoms reported All Other Systems Reviewed Negative Unless Noted: Yes Past Abaggju-Ydczvb-Mrtcvs Hx Past Med/Social Hx: Reviewed Nursing Past Med/Soc Hx Patient Social History Alcohol Use: Denies Use Recreational Drug Use: Yes (m) Drug of Choice: MARIJUANA, CRACK, METH Smoking Status: Current Everyday Smoker Type Used: Cigarettes 2nd Hand Smoke Exposure: Yes Recent Foreign Travel: No Contact w/Someone Who Travel: No Recent Hopitalizations: No Immunizations Up To Date Date of Pneumonia Vaccine: Feb 18, 2013 Date of Influenza Vaccine: Feb 19, 2016 Seasonal Allergies Seasonal Allergies: No Past Medical History Surgeries: Yes (Left eye removed, ) Gallbladder, Tubal Ligation Respiratory: Yes Asthma, COPD Cardiac: No Neurological: Yes (psuedoseizure when really stressed out) Seizure Disorder 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 Disorders: Yes HIV/AIDS: Yes Gastrointestinal: Yes (n/v, blood stools, hx of hep C-took treatment) Musculoskeletal: Yes (right shoulder pinched nerve) Arthritis Endocrine: Yes Eye Injury Cancer: No Psychosocial: Yes Anxiety, PTSD, Bipolar, Depression Integumentary: No Blood Disorders: Yes (HIV) Family Medical History Reviewed Nursing Family Hx Heart Disease, Diabetes, Hypertension Physical Exam Vital Signs Vital Signs - First Documented 12/18/17 16:19 Temp 97.8 Pulse 100 Resp 18 B/P (MAP) 132/87 (102) Pulse Ox 95 O2 Delivery Room Air Capillary Refill : Height, Weight, BMI Height: 5'5.00" Weight: 209lbs. 0oz. 94.668271oq; 33.6 BMI Method:Stated General Appearance: No Apparent Distress, WD/WN HEENT: PERRL/EOMI, Pharynx Normal Neck: Non Tender, Supple Respiratory: Lungs Clear, Normal Breath Sounds Cardiovascular: Regular Rate, Rhythm, No Murmur Gastrointestinal: Non Tender, Soft Extremity: Normal Range of Motion, Non Tender Neurologic/Psychiatric: Alert, Oriented x3 Skin: Normal Color, Warm/Dry Progress/Results/Core Measures Results/Orders Lab Results Laboratory Tests Test 12/18/17 16:34 Range/Units White Blood Count 11.4 H 4.3-11.0 10^3/uL Red Blood Count 4.90 4.35-5.85 10^6/uL Hemoglobin 14.2 11.5-16.0 G/DL Hematocrit 41 35-52 % Mean Corpuscular Volume 85 80-99 FL Mean Corpuscular Hemoglobin 29 25-34 PG Mean Corpuscular Hemoglobin Concent 34 32-36 G/DL Red Cell Distribution Width 13.5 10.0-14.5 % Platelet Count 249 130-400 10^3/uL Mean Platelet Volume 11.1 H 7.4-10.4 FL Neutrophils (%) (Auto) 70 42-75 % Lymphocytes (%) (Auto) 21 12-44 % Monocytes (%) (Auto) 9 0-12 % Eosinophils (%) (Auto) 0 0-10 % Basophils (%) (Auto) 0 0-10 % Neutrophils # (Auto) 8.0 H 1.8-7.8 X 10^3 Lymphocytes # (Auto) 2.4 1.0-4.0 X 10^3 Monocytes # (Auto) 1.0 0.0-1.0 X 10^3 Eosinophils # (Auto) 0.0 0.0-0.3 10^3/uL Basophils # (Auto) 0.0 0.0-0.1 10^3/uL Prothrombin Time 13.5 12.2-14.7 SEC INR Comment 1.0 0.8-1.4 Activated Partial Thromboplast Time 24 24-35 SEC Sodium Level 137 135-145 MMOL/L Potassium Level 4.0 3.6-5.0 MMOL/L Chloride Level 98 98-107 MMOL/L Carbon Dioxide Level 26 21-32 MMOL/L Anion Gap 13 5-14 MMOL/L Blood Urea Nitrogen 13 7-18 MG/DL Creatinine 0.72 0.60-1.30 MG/DL Estimat Glomerular Filtration Rate > 60 BUN/Creatinine Ratio 18 Glucose Level 313 H 70-105 MG/DL Calcium Level 9.8 8.5-10.1 MG/DL Magnesium Level 1.9 1.8-2.4 MG/DL Total Bilirubin 0.7 0.1-1.0 MG/DL Aspartate Amino Transf (AST/SGOT) 73 H 5-34 U/L Alanine Aminotransferase (ALT/SGPT) 25 0-55 U/L Alkaline Phosphatase 81 40-136 U/L Myoglobin 347.7 H 10.0-92.0 NG/ML Troponin I 15.68 *H <0.30 NG/ML Total Protein 7.4 6.4-8.2 GM/DL Albumin 4.3 3.2-4.5 GM/DL My Orders Orders - MALLORIE LAWS MD Ekg Tracing (12/18/17 16:18) Cbc With Automated Diff (12/18/17 16:30) Magnesium (12/18/17 16:30) Chest 1 View, Ap/Pa Only (12/18/17 16:30) Cardiac Profile 1 (12/18/17 16:30) Comprehensive Metabolic Panel (12/18/17 16:30) Myoglobin Serum (12/18/17 16:30) Protime With Inr (12/18/17 16:30) Partial Thromboplastin Time (12/18/17 16:30) O2 (12/18/17 16:30) Monitor-Rhythm Ecg Trace Only (12/18/17 16:30) Aspirin Chewable Tablet (Baby Aspirin Ch (12/18/17 16:30) Nitroglycerin 0.4 Mg Btl 25's (Nitrostat (12/18/17 16:30) Saline Lock/Iv-Start (12/18/17 16:30) Heparin (Bolus Per Protocol) (Heparin (B (12/18/17 16:45) Heparin (Bolus Per Protocol) (Heparin (B (12/18/17 16:34) Ns Iv 1000 Ml (Sodium Chloride 0.9%) (12/18/17 17:23) Iv Push Chemical Preparer Ed (12/18/17 ) Medications Given in ED Vital Signs/I&O 12/18/17 12/18/17 16:19 16:55 Temp 97.8 Pulse 100 118 Resp 18 18 B/P (MAP) 132/87 (102) 102/62 Pulse Ox 95 98 O2 Delivery Room Air Room Air Progress Progress Note : Progress Note Seen and evaluated. IV, labs, EKG and chest x-ray ordered. ASA 324 mg by mouth ordered. EKG evaluated by assistant wrestling coach Dr. Enriquez as well. We both agree that this is inferior infarct that is acute. 1632: I discussed the case with Dr. Austin at [facility] in [place], [place] and he accepts patient for transfer emergent. Discussed EMS versus flight and are EMS will be able to get her there faster as there are any on site. Emergent transfer initiated. Heparin 5000 unit bolus initiated per [facility] assistant wrestling coach. All findings concerns discussed with patient and family who agree with transfer. Initial ECG Impression Date: Dec 18, 2017 Initial ECG Impression Time: 16:23 Initial ECG Rhythm: S.Tach Initial ECG Impression: Acute AR Comment ST elevation in leads 2, 3 and aVF consistent with acute inferior infarct. Normal axis. Otherwise sinus tachycardia. Discussed with assistant wrestling coach who agrees. Diagnostic Imaging Diagonstic Imaging: Xray Plain Films/CT/US/NM/MRI: chest Comments NAME: LINDSEY DE LA TORRE [facility] REC#: [id number] PT STATUS: REG ER : 1975 PHYSICIAN: MALLORIE LAWS MD ADMIT DATE: 12/18/17/ER Signed Date of Exam: 12/18/17 CHEST 1 VIEW, AP/PA ONLY INDICATION: Chest pain. COMPARISON: 11/28/2017. FINDINGS: Single frontal radiographic view of the chest was obtained and demonstrates stable cardiac silhouette and pulmonary vasculature. Lungs continue to show nodular opacity within the inferior margins of the right upper lobe that measures 1.7 x 1.3 cm. There is no new focal alveolar consolidation, large effusion, or pneumothorax. Bony structures show no gross acute abnormalities. IMPRESSION: 1. No new acute cardiopulmonary process. 2. Redemonstration of previously described right-sided pulmonary nodule. Further characterization with dedicated CT chest is recommended. Dictated by: Dictated on workstation # [id number] Dict: 12/18/17 1651 Trans: 12/19/17 0856 Interpreted by: RILEY OBRIEN MD Electronically signed by: RILEY OBRIEN MD 12/19/17 0856 Departure Impression Primary Impression: Acute inferior myocardial infarction Disposition: XF SHT-TRM HOSP Condition: Stable Transfer Transfer Time: 16:32 Transfer Facility: [place], [place], Dr. Austin accepting. Method of Transfer: EMS Departure-Patient Inst. Referrals: [facility] (PCP/Family) Primary Care Physician MALLORIE LAWS MD Dec 18, 2017 16:42
[2017-12-18] MEDS ORDERED: HEParin 1000 UNIT/ML (10ML VIAL) FOR BOLUS IV SCH (16:45)
[2017-12-18 16:52] LABS: PROTHROMBIN TIME PATIENT 13.5 SEC (12.2-14.7)
[2017-12-18 16:55] VITALS: BP 102/62
[2017-12-18 16:58] LABS: ALANINE AMINOTRANSFERASE 25 U/L (0-55); ALBUMIN 4.3 GM/DL (3.2-4.5); ALKALINE PHOSPHATASE 81 U/L (40-136); BILIRUBIN,TOTAL 0.7 MG/DL (0.1-1.0); BUN/CREATININE RATIO 18; CALCIUM 9.8 MG/DL (8.5-10.1); CARBON DIOXIDE 26 MMOL/L (21-32); CHLORIDE 98 MMOL/L (98-107); CREATININE SERUM 0.72 MG/DL (0.60-1.30); GFR ESTIMATED > 60; GLUCOSE 313 MG/DL (70-105); MAGNESIUM 1.9 MG/DL (1.8-2.4); SODIUM 137 MMOL/L (135-145); TOTAL PROTEIN 7.4 GM/DL (6.4-8.2)
--- NOTE | 2017-12-18 17:01 | Diagnostic Imaging Report ---
INDICATION: Chest pain. COMPARISON: 11/28/2017. FINDINGS: Single frontal radiographic view of the chest was obtained and demonstrates stable cardiac silhouette and pulmonary vasculature. Lungs continue to show nodular opacity within the inferior margins of the right upper lobe that measures 1.7 x 1.3 cm. There is no new focal alveolar consolidation, large effusion, or pneumothorax. Bony structures show no gross acute abnormalities. IMPRESSION: 1. No new acute cardiopulmonary process. 2. Redemonstration of previously described right-sided pulmonary nodule. Further characterization with dedicated CT chest is recommended. Dictated by: Dictated on workstation # [id number]
[2017-12-18 17:04] LABS: MYOGLOBIN SERUM 347.7 NG/ML (10.0-92.0)
[2017-12-18] MEDS ORDERED: NS IV 1000 ML 1,000 ML ONE (17:23)
--- NOTE | 2017-12-18 17:52 | Consultation-Cardiology ---
HPI-Cardiology Cardiology Consultation: Date of Consultation 12/18/17 Date of Admission Attending Physician [facility]ician Maksim ENRIQUEZ MD HPI: Time Seen by Provider: 16:30 Chief Complaint: Chest pain This is a 42-year-old lady who has HIV on antiretroviral agents, diabetes on insulin, hyperlipidemia, active smoking. She presented with moderate to severe substernal chest pain which started 2 hours before admission to the ER. No significant radiation. Associated numbness. No exacerbating or relieving factors. Review of Systems-Cardiology Review of Systems Constitutional: As described under HPI; No As described under HPI, No no symptoms reported, No chills, No fever, No lightheadedness Eyes: No As described under HPI, No no symptoms reported, No blindness, No blurred vision, No contact lenses, No drainage, No decreased acuity, No foreign body sensation, No pain, No vision change Ears/Nose/Throat: No As described under HPI, No no symptoms reported, No chronic hearing loss, No ear discharge, No ear pain, No nasal drainage, No ulcerations Respiratory: No no symptoms reported; As described under HPI; No As described under HPI, No cough, No orthopnea, No shortness of breath, No SOB with excertion Cardiovascular: No no symptoms reported; As described under HPI; No As described under HPI; chest pain; No edema, No irregular heart rate, No lightheadedness, No palpitations Gastrointestinal: No no symptoms reported, No As described under HPI, No abdomen distended, No abdominal pain, No blood streaked bowels, No constipation , No diarrhea, No nausea, No vomiting, No stool coloration changes Genitourinary: No As described under HPI, No burning, No dysuria, No discharge , No frequency, No flank pain, No hematuria, No urgency : Yes : No Musculoskeletal: No no symptoms reported, No As describe under HPI, No back pain, No gout, No joint pain, No joint swelling, No muscle pain, No muscle stiffness, No neck pain, No other Skin: No no symptoms reported, No As described under HPI, No change in color, No change in hair/nails, No dryness, No lesions, No lumps, No rash, No other, No skin related problems, No ulcerations, No rash on exposed areas, No ulcerations on exposed areas Psychiatric/Neurological: No no symptoms reported, No As described under HPI, No anxiety, No depression, No emotional problems, No headache, No numbness, No pre-existing deficit, No seizure, No tingling, No tremors, No weakness, No other , No focal weakness, No syncope Hematologic: No bleeding abnormalities All Other Systems Reviewed Negative Unless Noted: Yes EAH-Mbkllg-Cnofmi Hx Patient Social History Alcohol Use: Denies Use Recreational Drug Use: Yes (m) Drug of Choice: MARIJUANA, CRACK, METH Smoking Status: Current Everyday Smoker Type Used: Cigarettes 2nd Hand Smoke Exposure: Yes Recent Foreign Travel: No Recent Infectious Disease Expo: No Hospitalization with Isolation: Denies Immunizations Up To Date Date of Pneumonia Vaccine: Feb 18, 2013 Date of Influenza Vaccine: Feb 19, 2016 Past Medical History PMH As described under Assessment. Allergies and Home Medications Allergies Coded Allergies: hydromorphone (Verified Allergy, Unknown, b/p and oxygen level drop, ) tramadol (Verified Allergy, Unknown, ANAPHYLAXIS, 08/11/16) Uncoded Allergies: air casts (Allergy, Unknown, 11/28/17) Home Medications Acetaminophen 500 Mg Tablet, 1,000 MG PO Q8H PRN for BREAKTHROUGH PAIN Prescribed by: CHAPARRO KELLEY on 11/17/172245 Hydroxyzine Pamoate 25 Mg Capsule, 25 MG PO BID, (Reported) Hydroxyzine Pamoate 100 Mg Capsule, 1 EACH PO HS, (Reported) Insulin Aspart 300 Units/3 Ml Solution, 0 SQ DAILY@1200, (Reported) sliding scale Insuln Asp Prt/Insulin Aspart 300 Units/3 Ml Solution, 30 UNITS SQ BID, ( Reported) Methyl Salicylate/Menthol 35.4 Gm Cream..g., 1 GM TP Q4H PRN for PAIN-MILD TO MODERATE Prescribed by: CHAPARRO KELLEY on 11/17/172245 Naproxen 250 Mg Tablet, 250 MG PO BID Prescribed by: TALI GOLDSMITH on 06/26/13 1518 Ondansetron 8 Mg Tab.rapdis, 8 MG PO every 4 hours Prescribed by: CARL ROJO on 10/18/17 1524 Pantoprazole Sodium 40 Mg Tablet.dr, 40 MG PO DAILY Prescribed by: KATELYNN DIAZ on 08/14/16 1253 Tramadol Hcl 50 Mg Tab, 50 MG PO Q4H Prescribed by: TALI GOLDSMITH on 06/26/13 1518 Patient Home Medication List Home Medication List Reviewed: Yes Physical Exam-Cardiology Physical Exam Vital Signs/I&O 12/18/17 12/18/17 16:19 16:55 Temp 97.8 Pulse 100 118 Resp 18 18 B/P (MAP) 132/87 (102) 102/62 Pulse Ox 95 98 O2 Delivery Room Air Room Air Capillary Refill : Less Than 3 Seconds Constitutional: AAO x 3, apparent distress HEENT: No PERRL, No normal ENT inspection, No TMs normal, No pharynx normal, No scleral icterus (R), No scleral icterus (L), No pale conjunctivae (R), No pale conjunctivae (L), No photophobia, No TM abnormal (R), No TM abnormal (L), No pharyngeal erythema, No tonsillar exudate, No other, No discharge, No EOMI, No hearing is well preserved, No hard of hearing, No oral hygience is good, No ulceration, No xanthelasmas are seen Neck: No non-tender, No full range of motion, No supple, No normal inspection, No carotid bruit, No limited range of motion, No lymphadenopathy (R), No lymphadenopathy (L), No tender lateral, No tender midline, No thyromegaly, No other, No carotid pulses are 2 + bilaterally, No with good upstrokes Respiratory: chest is bilaterally symmetric, lungs clear to auscultation Cardiovascular: regular rate-rhythm; No irregularly irregular, No extra beats, No parasternal heave is noted, No JVD, No edema, No bradycardia, No tachycardia , No point of maximal impulse, No cardiac thrills are palpable; S1 and S2; No gallop/S3, No gallop/S4, No diastolic murmur, No systolic murmur, No friction rub, No click, No other Gastrointestinal: No tender, No soft, No round, No distended, No pulsatile mass , No organomegaly, No guarding, No rebound, No tenderness, No hernia, No mass, No audible bowel sounds, No abnormal bowel sounds, No abdominal bruits, No spleenomegaly, No other Rectal: deferred Extremities: No normal range of motion, No non-tender, No normal inspection, No pedal edema, No calf tenderness, No normal capillary refill, No pelvis stable , No calf tenderness, No inflammation, No pedal edema, No slow capillary refill , No swelling, No other, No abrasion, No clubbing, No cyanosis, No ecchymosis, No laceration, No no lower extremity edema bilateral, No significant edema, No tenderness, No wound Neurologic/Psychiatric: no motor/sensory deficits, alert, normal mood/affect, oriented x 3 Skin: No normal color, No warm/dry, No cyanosis, No cool, No diaphoresis, No damp, No ecchymosis, No jaundice, No mottled, No pallor, No rash, No tattoos/ piercings, No ulcerations, No rash on exposed areas, No ulcerations on exposed areas, No other Data Review Labs Laboratory Tests 12/18/17 16:34: White Blood Count 11.4H, Red Blood Count 4.90, Hemoglobin 14.2, Hematocrit 41, Mean Corpuscular Volume 85, Mean Corpuscular Hemoglobin 29, Mean Corpuscular Hemoglobin Concent 34, Red Cell Distribution Width 13.5, Platelet Count 249, Mean Platelet Volume 11.1H, Neutrophils (%) (Auto) 70, Lymphocytes (%) (Auto) 21 , Monocytes (%) (Auto) 9, Eosinophils (%) (Auto) 0, Basophils (%) (Auto) 0, Neutrophils # (Auto) 8.0H, Lymphocytes # (Auto) 2.4, Monocytes # (Auto) 1.0, Eosinophils # (Auto) 0.0, Basophils # (Auto) 0.0, Prothrombin Time 13.5, INR Comment 1.0, Activated Partial Thromboplast Time 24, Sodium Level 137, Potassium Level 4.0, Chloride Level 98, Carbon Dioxide Level 26, Anion Gap 13, Blood Urea Nitrogen 13, Creatinine 0.72, Estimat Glomerular Filtration Rate > 60 , BUN/Creatinine Ratio 18, Glucose Level 313H, Calcium Level 9.8, Magnesium Level 1.9, Total Bilirubin 0.7, Aspartate Amino Transf (AST/SGOT) 73H, Alanine Aminotransferase (ALT/SGPT) 25, Alkaline Phosphatase 81, Myoglobin 347.7H, Troponin I 15.68*H, Total Protein 7.4, Albumin 4.3 ECG Impression ECG Initial ECG Impression: Acute RI A/P-Cardiology Assessment/Admission Diagnosis Acute inferior STEMI, HIV, Diabetes, Hyperlipidemia, Active smoking. Plan Acute inferior STEMI, aspirin and heparin bolus. 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 Dr. Natarajan was spoken to. Nitroglycerin recommended. I spoke to her briefly about coronary angiography. HIV, diabetes, hyperlipidemia, Active smoking: Strongly recommended to quit. Thank you for your consultation. Please call me if you have any questions. Carroll Enriquez MD, FACP, FACC, FSCAI, FHRS, CCDS Interventional Cardiology Cardiac Electrophysiology Vascular Medicine and Endovascular Interventions Clinical Quality Measures AMI/AHF: ASA po Prior to arrival: Maksim Lara MD Dec 18, 2017 17:51
== END 2017-12-18 16:55 | disposition short-term general hospital (02) ==
LOC: EDUNIT# 16:15 → ER 16:17
DX: I21.9 Acute myocardial infarction, unspecified (principal); E11.9 Type 2 diabetes mellitus without complications; E78.00 Pure hypercholesterolemia, unspecified; J44.9 Chronic obstructive pulmonary disease, unspecified; G40.909 Epilepsy, unspecified, not intractable, without status epilepticus; F41.9 Anxiety disorder, unspecified; F43.10 Post-traumatic stress disorder, unspecified; F31.9 Bipolar disorder, unspecified; F12.10 Cannabis abuse, uncomplicated; F15.10 Other stimulant abuse, uncomplicated; F17.210 Nicotine dependence, cigarettes, uncomplicated; Z98.51 Tubal ligation status; Z82.49 Family history of ischemic heart disease and other diseases of the circulatory system; Z79.4 Long term (current) use of insulin; Z21 Asymptomatic human immunodeficiency virus [HIV] infection status; Z88.5 Allergy status to narcotic agent; Z88.6 Allergy status to analgesic agent
CPT/HCPCS: 36415; 71045; 80053; 83735; 83874; 84484; 85025; 85610; 85730; 93005; 93041; 96374

== ENCOUNTER → 2018-02-21 | Outpatient (CLI) | payer MEDICAID | LOC: CARD 10:43 | PROVIDERS: ATTEND Internal Medicine Interventional Cardiology | DX: I25.10 Atherosclerotic heart disease of native coronary artery without angina pectoris (principal); E11.9 Type 2 diabetes mellitus without complications; I10 Essential (primary) hypertension; I42.8 Other cardiomyopathies; I07.1 Rheumatic tricuspid insufficiency; Z72.0 Tobacco use | CPT/HCPCS: 93306 ==

== ENCOUNTER 2018-04-09 13:45 | Emergency (ER) | payer MEDICAID ==
[~2018-04-09] VITALS: Ht 165.1 cm; Wt 97.1 kg
--- OUTSIDE RECORDS SUMMARY | 2018-04-09 13:51 | XMS REPORT | Clinical Summary ---
Author Author [facility] Organization [facility] Address Unknown Phone Unavailable Care Team Providers Care Dixonac Operator Name Role Phone AlvarezBenja reed MANAGER OF DATA Unavailable Yesi Escudero NP Unavailable Katharina Yarbrough RN Unavailable Unavailable Mian Barraza RN Unavailable Unavailable Milly Sy RN Unavailable Unavailable Self, Referral PCP Unavailable Source Comments Some departments are not documenting in the electronic medical record. If you do not see the information that you expected, contact Release of Information in the Health Information Management department at [phone] for further assistance in locating additional records.[facility] Allergies Active Allergy Reactions Severity Noted [...] Last Done Comments PHYSICAL (COMPREHENSIVE) 1983 EXAM HIV SCREENING 1991 DTAP/TDAP VACCINES ( - 1994 Tdap) CERVICAL CANCER SCREENING 2006 BREAST CANCER SCREENING 2016 INFLUENZA VACCINE 12/19/2017 Results Not on filefrom Last 3 Months
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
--- NOTE | 2018-04-09 14:10 | ED Cough/URI ---
General Chief Complaint: Cough/Cold/Flu Symptoms Stated Complaint: COLD SYMPTOMS Source: patient Exam Limitations: no limitations History of Present Illness Date Seen by Provider: Apr 09, 2018 Time Seen by Provider: 14:10 Initial Comments Patient is a 42-year-old female who presents to the emergency room with cold cough flu symptoms the past 10 days. She denies fevers, reports body aches. She reports that she is just concerned that she has the flu. Reports mild relief from [id number] cold cough flu medications. She denies shortness of breath , or chest pain. Timing/Duration: other Severity/Quality: mild, productive cough Associated Symptoms: cough, nasal congestion, nasal drainage Allergies and Home Medications Allergies Coded Allergies: hydromorphone (Verified Allergy, Unknown, b/p and oxygen level drop, ) tramadol (Verified Allergy, Unknown, ANAPHYLAXIS, 08/11/16) Uncoded Allergies: air casts (Allergy, Unknown, 11/28/17) Home Medications Acetaminophen 500 Mg Tablet, 1,000 MG PO Q8H PRN for BREAKTHROUGH PAIN Prescribed by: CHAPARRO KELLEY on 11/17/172245 Hydroxyzine Pamoate 25 Mg Capsule, 25 MG PO BID, (Reported) Hydroxyzine Pamoate 100 Mg Capsule, 1 EACH PO HS, (Reported) Insulin Aspart 300 Units/3 Ml Solution, 0 SQ DAILY@1200, (Reported) sliding scale Insuln Asp Prt/Insulin Aspart 300 Units/3 Ml Solution, 30 UNITS SQ BID, ( Reported) Methyl Salicylate/Menthol 35.4 Gm Cream..g., 1 GM TP Q4H PRN for PAIN-MILD TO MODERATE Prescribed by: CHAPARRO KELLEY on 11/17/172245 Naproxen 250 Mg Tablet, 250 MG PO BID Prescribed by: TALI GOLDSMITH on 06/26/13 1518 Ondansetron 8 Mg Tab.rapdis, 8 MG PO every 4 hours Prescribed by: CARL ROJO on 10/18/17 1524 Pantoprazole Sodium 40 Mg Tablet.dr, 40 MG PO DAILY Prescribed by: KATELYNN DIAZ on 08/14/16 1253 Tramadol Hcl 50 Mg Tab, 50 MG PO Q4H Prescribed by: TALI GOLDSMITH on 06/26/13 1518 Patient Home Medication List Home Medication List Reviewed: Yes Review of Systems Review of Systems Constitutional: see HPI; No chills, No fever Respiratory: see HPI, cough, phlegm All Other Systems Reviewed Negative Unless Noted: Yes Past Wvdgqzk-Vsmxgi-Byrugc Hx Past Med/Social Hx: Reviewed Nursing Past Med/Soc Hx Patient Social History Alcohol Use: Denies Use Recreational Drug Use: No Drug of Choice: MARIJUANA, CRACK, METH Smoking Status: Current Everyday Smoker Type Used: Cigarettes 2nd Hand Smoke Exposure: Yes Recent Foreign Travel: No Contact w/Someone Who Travel: No Recent Hopitalizations: No Immunizations Up To Date Date of Pneumonia Vaccine: Feb 18, 2013 Date of Influenza Vaccine: Feb 19, 2016 Seasonal Allergies Seasonal Allergies: No Past Medical History Surgeries: Yes (Left eye removed, ) Gallbladder, Tubal Ligation Respiratory: Yes Asthma, COPD Cardiac: No Neurological: Yes (psuedoseizure when really stressed out) Seizure Disorder 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 Disorders: Yes HIV/AIDS: Yes Gastrointestinal: Yes (n/v, blood stools, hx of hep C-took treatment) Musculoskeletal: Yes (right shoulder pinched nerve) Arthritis Endocrine: Yes Eye Injury Cancer: No Psychosocial: Yes Anxiety, PTSD, Bipolar, Depression Integumentary: No Blood Disorders: Yes (HIV) Family Medical History Reviewed Nursing Family Hx Heart Disease, Diabetes, Hypertension Physical Exam Vital Signs - First Documented 04/09/18 13:50 Temp 98.7 Pulse 89 Resp 18 B/P (MAP) 145/87 (106) Pulse Ox 99 O2 Delivery Room Air Capillary Refill : Height: 5'5.00" Weight: 209lbs. 0oz. 94.997972ob; 33.6 BMI Method:Stated General Appearance: WD/WN, no apparent distress HEENT: PERRL/EOMI, normal ENT inspection, TMs normal, pharynx normal Neck: non-tender, full range of motion, supple, normal inspection Respiratory: chest non-tender, lungs clear, normal breath sounds, no respiratory distress, no accessory muscle use Cardiovascular: regular rate, rhythm, no edema, no gallop, no JVD, no murmur Neurologic/Psychiatric: alert, normal mood/affect, oriented x 3 Skin: normal color, warm/dry Progress/Results/Core Measures Suspected Sepsis SIRS Temperature: Pulse: Respiratory Rate: Blood Pressure / Mean: Results/Orders Lab Results Laboratory Tests Test 04/09/18 13:57 Range/Units Group A Streptococcus Screen NEGATIVE NEGATIVE Micro Results Microbiology 04/09/18 Influenza Types A,B Antigen (YAJAIRA) - Final, Complete My Orders Orders - SKIP HALLMAN Influenza A And B Antigens (04/09/18 14:00) Rapid Strep A Screen (04/09/18 14:00) Ibuprofen Tablet (Motrin Tablet) (04/09/18 14:45) Vital Signs/I&O 04/09/18 13:50 Temp 98.7 Pulse 89 Resp 18 B/P (MAP) 145/87 (106) Pulse Ox 99 O2 Delivery Room Air Capillary Refill : Departure Impression Primary Impression: Viral illness Disposition: HOME, SELF-CARE Condition: Stable/Unchanged Departure-Patient Inst. Decision time for Depature: 14:36 Referrals: CHUCKIE MARIE DO (PCP) Primary Care Physician FRANDY DEUTSCH (Family) Primary Care Physician Patient Instructions: Cough, Runny Nose, and the Common Cold (DC) Add. Discharge Instructions: You may use Tylenol and ibuprofen as needed for pain and fever. Over-the- counter cold cough and flu medications may be beneficial. Practice good hand hygiene to prevent spread of virus. Follow-up with your primary care provider within 1 week for recheck. Return back to the emergency room for any worsening symptoms or concerns as needed. All discharge instructions reviewed with patient and/or family. Voiced understanding. SKIP HALLMAN Apr 09, 2018 14:10
[2018-04-09 14:38] VITALS: BP 145/87
[2018-04-09] MEDS: IBUPROFEN 800 MG (MOTRIN) TAB PO ONE (14:45)
== END 2018-04-09 14:38 | disposition home or self-care (01) ==
LOC: EDUNIT# 13:45 → ER 13:46
DX: B34.9 Viral infection, unspecified (principal); F41.9 Anxiety disorder, unspecified; F31.9 Bipolar disorder, unspecified; F43.10 Post-traumatic stress disorder, unspecified; J44.9 Chronic obstructive pulmonary disease, unspecified; B19.20 Unspecified viral hepatitis C without hepatic coma; G40.909 Epilepsy, unspecified, not intractable, without status epilepticus; F15.10 Other stimulant abuse, uncomplicated; F12.10 Cannabis abuse, uncomplicated; F17.210 Nicotine dependence, cigarettes, uncomplicated; Z98.51 Tubal ligation status; Z21 Asymptomatic human immunodeficiency virus [HIV] infection status; Z88.6 Allergy status to analgesic agent; Z88.8 Allergy status to other drugs, medicaments and biological substances; Z79.4 Long term (current) use of insulin
CPT/HCPCS: 87430; 87804

== ENCOUNTER 2018-05-05 09:09 | Inpatient (IN) | payer MEDICAID ==
[2018-05-05] VITALS (19 sets, daily range): BP systolic 121–162; BP diastolic 69–122
[~2018-05-05] VITALS: Ht 162.6 cm; Wt 97.1 kg
--- OUTSIDE RECORDS SUMMARY | 2018-05-05 09:13 | XMS REPORT | Clinical Summary ---
Author Author [facility] Organization [facility] Address Unknown Phone Unavailable Care Team Providers Care Project Analyst Name Role Phone AlvarezBenja reed PEOPLESOFT HRMS DEVELOPER Unavailable Yesi sEcudero NP Unavailable Katharina Yarbrough RN Unavailable Unavailable Mian Barraza RN Unavailable Unavailable Milly Sy RN Unavailable Unavailable Self, Referral PCP Unavailable Source Comments Some departments are not documenting in the electronic medical record. If you do not see the information that you expected, contact Release of Information in the Health Information Management department at [phone] for further assistance in locating additional records.[facility] Allergies Comments Active Allergy Reactions Severity Noted Date Hydromorphone (Bulk) ITCHING 12/15/2009 Medications End Date Status Medication Sig Dispensed Refills Start Date Active Aspirin 81 mg Tab Take by 0 mouth. Active INSULIN Inject 70 0 GLARGINE,HUM.REC.ANLOG Units into (LANTUS SC) area(s) as directed Twice Daily. Active INSULIN LISPRO (HUMALOG Inject 25 0 SC) Units into area(s) as directed Three Times Daily. Active quinapril,+, (ACCUPRIL) Take 40 mg by 0 20 mg tablet mouth At Bedtime Daily. Active atorvastatin (LIPITOR) 20 Take 20 mg by 0 mg tablet mouth Daily. Active albuterol (PROVENTIL) 2 Take 2 mg by 0 mg tablet mouth Three Times Daily. Active lorazepam (ATIVAN) 0.5 mg Take 0.5 mg 0 tablet by mouth Twice Daily. Active Problems Not on file Social History Date Tobacco Use Types Packs/Day Years Used Current Every Day Smoker 0.25 Alcohol Use Drinks/Week oz/Week Comments No Sex Assigned at Date Recorded Not on file Industry Job Start Date Occupation Not on file Not on file Not on file Travel End Travel History Travel Start No recent travel history available. Last Filed Vital Signs Time Taken Vital Sign Reading 01/17/2011 8:52 PM CDT Blood Pressure 183/82 12/15/2009 8:40 PM CDT Pulse 89 01/17/2011 8:52 PM CDT Temperature 36.9 C (98.4 F) - Respiratory Rate - 01/17/2011 8:52 PM CDT Oxygen Saturation 100% - Inhaled Oxygen - Concentration - Weight - - Height - - Body Mass Index - Plan of Treatment Health Maintenance Due Date Last Done Comments PHYSICAL (COMPREHENSIVE) 1983 EXAM HIV SCREENING 1991 DTAP/TDAP VACCINES (1 - 1994 Tdap) CERVICAL CANCER SCREENING 2006 BREAST CANCER SCREENING 2016 INFLUENZA VACCINE 12/19/2017 Results Not on filefrom Last 3 Months Advance Directives Patient has advance care planning documents on file. For more information, please contact: [facility] [address] [place] [address]
--- OUTSIDE RECORDS SUMMARY | 2018-05-05 09:14 | XMS REPORT | Continuity of Care Document ---
Author Author [facility] Organization [facility] Address Unknown Phone Unavailable Allergies Active Description Code Type Severity Reaction Onset Reported/Identified Relationship to Patient Clinical Status Yes hydromorphone [id number] Drug Allergy Unknown N/A 11/05/2008 Yes air [...] Status Pt. Type Provider Facility Loc./Unit Complaint [id number] 10/04/2016 15:30:00 10/04/2016 23:59:59 CLS Preadmit MARE BAILEY APRN [facility] RT J45.909 [id number] 06/26/2013 14:58:00 06/26/2013 16:27:00 DIS Emergency TALI GOLDSMITH APRN [facility] ER FALL/RIGHT ANKLE PAIN
[2018-05-05] MEDS ORDERED: CLOP75TA69 PO (09:29)
--- NOTE | 2018-05-05 09:41 | ED Chest Pain ---
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 BABY ASA AND [facility] Nursing Sepsis Screen: No Definite Risk Source: patient Exam Limitations: no limitations History of Present Illness Date Seen by Provider: May 05, 2018 Time Seen by Provider: 09:37 Initial Comments The patient is a 42-year-old white female who is brought by EMS with complaints of central chest pain. This began about 1-1-1/2 hours prior to calling the ambulance. She has a past history of HIV on treatment. 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 She presented here initially and [facility] and was on staff but diversion. She was therefore referred to [facility] and had a stent placed in her right coronary distribution. She reports that she has been faithful about taking Plavix and aspirin. She continues to smoke. EMS noted [facility] diversion in leads V1 through 3 and relayed this information to us. I spoke to Dr. Enriquez prior to the patient arrival and the [facility] team has been paged out. Timing/Duration: 1-3 hours Severity/Quality: moderate Location: substernal, central, shoulder Prior CP/Workup: cardiac cath, heart attack Allergies and Home Medications Allergies Coded Allergies: hydromorphone (Verified Allergy, Unknown, b/p and oxygen level drop, ) tramadol (Verified Allergy, Unknown, ANAPHYLAXIS, 08/11/16) Uncoded Allergies: air casts (Allergy, Unknown, 11/28/17) Home Medications Acetaminophen 500 Mg Tablet, 1,000 MG PO Q8H PRN for BREAKTHROUGH PAIN Prescribed by: CHAPARRO KELLEY on 11/17/172245 Clopidogrel Bisulfate 75 Mg Tablet, 75 MG PO DAILY, (Reported) Hydroxyzine Pamoate 25 Mg Capsule, 25 MG PO BID, (Reported) Hydroxyzine Pamoate 100 Mg Capsule, 1 EACH PO HS, (Reported) Insulin Aspart 300 Units/3 Ml Solution, 0 SQ DAILY@1200, (Reported) sliding scale Insuln Asp Prt/Insulin Aspart 300 Units/3 Ml Solution, 30 UNITS SQ BID, ( Reported) Methyl Salicylate/Menthol 35.4 Gm Cream..g., 1 GM TP Q4H PRN for PAIN-MILD TO MODERATE Prescribed by: CHAPARRO KELLEY on 6/30/18 2246 Naproxen 250 Mg Tablet, 250 MG PO BID Prescribed by: TALI GOLDSMITH on 06/26/13 1518 Ondansetron 8 Mg Tab.rapdis, 8 MG PO every 4 hours Prescribed by: CARL ROJO on 10/18/17 1524 Pantoprazole Sodium 40 Mg Tablet.dr, 40 MG PO DAILY Prescribed by: KATELYNN DIAZ on 08/14/16 1253 Tramadol Hcl 50 Mg Tab, 50 MG PO Q4H Prescribed by: TALI GOLDSMITH on 06/26/13 1518 Review of Systems Review of Systems Constitutional: see HPI EENTM: No Symptoms Reported Respiratory: No Symptoms Reported Cardiovascular: See HPI, Chest Pain Gastrointestinal: No Symptoms Reported Genitourinary: No Symptoms Reported Musculoskeletal: no symptoms reported Skin: no symptoms reported Psychiatric/Neurological: No Symptoms Reported Endocrine: No Symptoms Reported Hematologic/Lymphatic: No Symptoms Reported Past Robxhpr-Ghloak-Nubduf Hx Patient Social History Alcohol Use: Denies Use Recreational Drug Use: Yes (USED MEETH 2 WEEKS AGO) Drug of Choice: MARIJUANA, CRACK, METH Smoking Status: Current Everyday Smoker Type Used: Cigarettes 2nd Hand Smoke Exposure: Yes Recent Foreign Travel: No Contact w/Someone Who Travel: No Recent Infectious Disease Expo: No Recent Hopitalizations: No Immunizations Up To Date Date of Pneumonia Vaccine: Feb 18, 2013 Date of Influenza Vaccine: Feb 19, 2016 Seasonal Allergies Seasonal Allergies: No Past Medical History Surgeries: Yes (Left eye removed, ) Gallbladder, Tubal Ligation Respiratory: Yes Asthma, COPD Cardiac: Yes (STENT PLACE IN NOVEMBER) Neurological: Yes (psuedoseizure when really stressed out) Seizure Disorder 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 Disorders: Yes HIV/AIDS: Yes Gastrointestinal: Yes (n/v, blood stools, hx of hep C-took treatment) Musculoskeletal: Yes (right shoulder pinched nerve) Arthritis Endocrine: Yes Eye Injury Cancer: No Psychosocial: Yes Anxiety, PTSD, Bipolar, Depression Integumentary: No Blood Disorders: Yes (HIV) Family Medical History Heart Disease, Diabetes, Hypertension Physical Exam Vital Signs Vital Signs - First Documented 05/05/18 09:09 Pulse 89 Resp 18 B/P (MAP) 167/92 (117) Pulse Ox 97 O2 Delivery Nasal Cannula Capillary Refill : Less Than 3 Seconds Height, Weight, BMI Height: 5'4.00" Weight: 214lbs. 0oz. 97.863364dz; 33.6 BMI Method:Stated General Appearance: Mild Distress HEENT: Normal ENT Inspection Neck: Full Range of Motion, Normal Inspection, Non Tender Respiratory: Chest Non Tender, Lungs Clear, Normal Breath Sounds Cardiovascular: Regular Rate, Rhythm, No Edema, No Gallop, No JVD, No Murmur, Normal Peripheral Pulses Gastrointestinal: Normal Bowel Sounds, No Organomegaly, No Pulsatile Mass, Non Tender, Other (obese) Extremity: Normal Capillary Refill, Normal Inspection, Normal Range of Motion Progress/Results/Core Measures Results/Orders My Orders Orders - CARL ROJO MD Ekg Tracing (05/05/18 09:11) Vital Signs/I&O 05/05/18 05/05/18 09:09 09:10 Pulse 89 Resp 18 B/P (MAP) 167/92 (117) Pulse Ox 97 O2 Delivery Nasal Cannula Nasal Cannula Blood Pressure Mean: 117 Departure Departure-Patient Inst. Referrals: CHUCKIE MARIE DO (PCP) Primary Care Physician FRANDY DEUTSCH (Family) Primary Care Physician CARL ROJO MD May 05, 2018 09:41
--- OUTSIDE RECORDS SUMMARY | 2018-05-05 09:41 | XMS REPORT | Clinical Summary ---
Author Author [facility] Organization [facility] Address Unknown Phone Unavailable Care Team Providers Care Workday Consultant Name Role Phone AlvarezBenja reed SENIOR HEALTH PHYSICS TECHNICIAN Unavailable Yesi Escudero NP Unavailable Katharina Yarbrough RN Unavailable Unavailable Mian Barraza RN Unavailable Unavailable Milly Sy RN Unavailable Unavailable Self, Referral PCP Unavailable Source Comments Some departments are not documenting in the electronic medical record. If you do not see the information that you expected, contact Release of Information in the Health Information Management department at [phone] for further assistance in locating additional records.[facility] Allergies Comments Active Allergy Reactions Severity Noted [...] on file. For more information, please contact: [facility] [address] [place] [address]
--- OUTSIDE RECORDS SUMMARY | 2018-05-05 09:43 | XMS REPORT | Continuity of Care Document ---
Author Author [facility] Organization [facility] Address Unknown Phone Unavailable Allergies Active Description Code Type Severity Reaction Onset Reported/Identified Relationship to Patient Clinical Status Yes hydromorphone [id number] Drug Allergy Unknown N/A 11/05/2008 Yes air [...] Status Pt. Type Provider Facility Loc./Unit Complaint [id number] 10/04/2016 15:30:00 10/04/2016 23:59:59 CLS Preadmit MARE BAILEY APRN [facility] RT J45.909 [id number] 06/26/2013 14:58:00 06/26/2013 16:27:00 DIS Emergency TALI GOLDSMITH APRN [facility] ER FALL/RIGHT ANKLE PAIN
[2018-05-05 10:00] LABS: BASOPHILS % (AUTO) 0 % (0-10); EOSINOPHILS # (AUTO) 0.1 10^3/uL (0.0-0.3); EOSINOPHILS % (AUTO) 1 % (0-10); HEMATOCRIT 40 % (35-52); HEMOGLOBIN 14.1 G/DL (11.5-16.0); LYMPHOCYTES # (AUTO) 2.8 X 10^3 (1.0-4.0); LYMPHOCYTES % (AUTO) 32 % (12-44); MEAN CORPUSCULAR HEMOGLOBIN 30 PG (25-34); MEAN CORPUSCULAR HGB CONC 35 G/DL (32-36); MEAN CORPUSCULAR VOLUME 85 FL (80-99); MEAN PLATELET VOLUME 10.9 FL (7.4-10.4); MONOCYTES # (AUTO) 0.7 X 10^3 (0.0-1.0); MONOCYTES % (AUTO) 8 % (0-12); NEUTROPHILS # (AUTO) 5.2 X 10^3 (1.8-7.8); NEUTROPHILS % (AUTO) 59 % (42-75); PLATELET COUNT 276 10^3/uL (130-400); RED CELL DISTRIBUTION WIDTH 13.9 % (10.0-14.5); WHITE BLOOD COUNT 8.8 10^3/uL (4.3-11.0)
[2018-05-05] MEDS ORDERED: TICAGRELOR 90 MG TABLET (BRILINTA) PO ONE (10:06)
[2018-05-05 10:14] LABS: ALANINE AMINOTRANSFERASE 27 U/L (0-55); ALBUMIN 4.2 GM/DL (3.2-4.5); ALKALINE PHOSPHATASE 74 U/L (40-136); BILIRUBIN,TOTAL 0.5 MG/DL (0.1-1.0); BUN/CREATININE RATIO 15; CALCIUM 9.4 MG/DL (8.5-10.1); CARBON DIOXIDE 24 MMOL/L (21-32); CHLORIDE 95 MMOL/L (98-107); CREATININE SERUM 0.79 MG/DL (0.60-1.30); GFR ESTIMATED > 60; POTASSIUM 5.1 MMOL/L (3.6-5.0); SODIUM 131 MMOL/L (135-145); TOTAL PROTEIN 7.4 GM/DL (6.4-8.2)
[2018-05-05 10:16] LABS: GLUCOSE 409 MG/DL (70-105)
[2018-05-05] MEDS ORDERED: LIDOCAINE 1% INJ 20 ML 20 ML VIAL ONE (11:15)
[2018-05-05] MEDS ORDERED: fentaNYL INJECTION 100 MCG/2 ML AMP ONE (11:15)
[2018-05-05] MEDS ORDERED: MIDAZOLAM 5 MG/5 ML (VERSED) VIAL ONE (11:15)
[2018-05-05] MEDS ORDERED: HEParin (CATH LAB) 2,000 ML IV ONE (11:16)
[2018-05-05] MEDS ORDERED: NITRO DRIP 25000 MCG/D5W 250 ML IV ONE (11:16)
[2018-05-05] MEDS ORDERED: NS IV 1000 ML 1,000 ML ONE (11:16)
[2018-05-05] MEDS ORDERED: HEParin 1000 UNIT/ML (10ML VIAL) FOR BOLUS ONE (11:16)
--- NOTE | 2018-05-05 11:25 | History & Physicial-Cardiolgy ---
HPI-Cardiology Cardiology Consultation: Date of Consultation 05/05/18 Date of Admission Attending Physician Maksim Enriquez MD Admitting Physician Amy Lopes DO Consulting Physician Maksim ENRIQUEZ MD HPI: Time Seen by a Provider: 09:50 Chief Complaint: Chest pain This is a 42-year-old lady with history of type I diabetes, HIV, active smoking. She presented in November 2017 with a STEMI was transferred to [facility] since our hospital was on diversion. PCI was done to the proximal RPDA with Promus drug-eluting stent 2.75 x 20 mm. She then returned back to follow-up with me and was found to have nonischemic cardiomyopathy as well and was put on goal-directed medical therapy. She presented with severe chest pain with ST elevation. Substernal. Severe intensity /10. No radiation. No exacerbating or relieving factors. The patient is also having resting pain in the right lower extremity. PAD will be ruled out. Therefore, the patient was scheduled for emergent coronary angiography. Review of Systems-Cardiology Review of Systems Constitutional: As described under HPI; No As described under HPI, No no symptoms reported, No chills, No fever, No lightheadedness Eyes: No As described under HPI, No no symptoms reported, No blindness, No blurred vision, No contact lenses, No drainage, No decreased acuity, No foreign body sensation, No pain, No vision change Ears/Nose/Throat: No As described under HPI, No no symptoms reported, No chronic hearing loss, No ear discharge, No ear pain, No nasal drainage, No ulcerations Respiratory: No no symptoms reported; As described under HPI; No As described under HPI, No cough, No orthopnea, No shortness of breath, No SOB with excertion Cardiovascular: No no symptoms reported; As described under HPI; No As described under HPI; chest pain; No edema, No irregular heart rate, No lightheadedness, No palpitations Gastrointestinal: No no symptoms reported, No As described under HPI, No abdomen distended, No abdominal pain, No blood streaked bowels, No constipation , No diarrhea; nausea; No vomiting, No stool coloration changes Genitourinary: No As described under HPI, No burning, No dysuria, No discharge , No frequency, No flank pain, No hematuria, No urgency : Yes : No Skin: No rash, No skin related problems, No ulcerations Psychiatric/Neurological: No anxiety, No depression, No seizure, No focal weakness, No syncope Hematologic: No bleeding abnormalities STL-Vllkrb-Qjufih Hx Patient Social History Alcohol Use: Denies Use Recreational Drug Use: Yes (USED [facility] 2 WEEKS AGO) Drug of Choice: MARIJUANA, CRACK, METH Smoking Status: Current Everyday Smoker Type Used: Cigarettes 2nd Hand Smoke Exposure: Yes Recent Foreign Travel: No Recent Infectious Disease Expo: No Hospitalization with Isolation: Denies Immunizations Up To Date Date of Pneumonia Vaccine: Feb 18, 2013 Date of Influenza Vaccine: Feb 19, 2016 Past Medical History PMH As described under Assessment. Allergies and Home Medications Allergies Coded Allergies: hydromorphone (Verified Allergy, Unknown, b/p and oxygen level drop, ) tramadol (Verified Allergy, Unknown, ANAPHYLAXIS, 08/11/16) Uncoded Allergies: air casts (Allergy, Unknown, 11/28/17) Home Medications Acetaminophen 500 Mg Tablet, 1,000 MG PO Q8H PRN for BREAKTHROUGH PAIN Prescribed by: CHAPARRO KELLEY on 11/17/172245 Clopidogrel Bisulfate 75 Mg Tablet, 75 MG PO DAILY, (Reported) Hydroxyzine Pamoate 25 Mg Capsule, 25 MG PO BID, (Reported) Hydroxyzine Pamoate 100 Mg Capsule, 1 EACH PO HS, (Reported) Insulin Aspart 300 Units/3 Ml Solution, 0 SQ DAILY@1200, (Reported) sliding scale Insuln Asp Prt/Insulin Aspart 300 Units/3 Ml Solution, 30 UNITS SQ BID, ( Reported) Methyl Salicylate/Menthol 35.4 Gm Cream..g., 1 GM TP Q4H PRN for PAIN-MILD TO MODERATE Prescribed by: CHAPARRO KELLEY on 11/17/172245 Naproxen 250 Mg Tablet, 250 MG PO BID Prescribed by: TALI GOLDSMITH on 06/26/13 1518 Ondansetron 8 Mg Tab.rapdis, 8 MG PO every 4 hours Prescribed by: CARL ROJO on 10/18/17 1524 Pantoprazole Sodium 40 Mg Tablet.dr, 40 MG PO DAILY Prescribed by: KATELYNN DIAZ on 08/14/16 1253 Tramadol Hcl 50 Mg Tab, 50 MG PO Q4H Prescribed by: TALI GOLDSMITH on 06/26/13 1518 Patient Home Medication List Home Medication List Reviewed: Yes Physical Exam-Cardiology Physical Exam Vital Signs/I&O 05/05/18 05/05/18 05/05/18 05/05/18 09:09 09:10 09:44 11:43 Pulse 89 80 71 Resp 18 18 B/P (MAP) 167/92 (117) 167/100 (122) Pulse Ox 97 98 O2 Delivery Nasal Cannula Nasal Cannula Nasal Cannula 05/05/18 05/05/18 05/05/18 05/05/18 11:45 12:00 12:15 12:30 Pulse 74 80 73 70 Resp 7 12 14 13 B/P (MAP) 135/73 (93) 162/118 (133) 155/103 (120) 140/98 (112) Pulse Ox 100 100 100 100 O2 Delivery Room Air Room Air Room Air Room Air 05/05/18 12:45 Pulse 69 Resp 24 B/P (MAP) 140/92 (108) Pulse Ox 99 O2 Delivery Room Air Capillary Refill : Less Than 3 Seconds Constitutional: appears stated age, AAO x 3; No apparent distress; well- developed, well-nourished HEENT: PERRL; No normal ENT inspection, No TMs normal, No pharynx normal, No scleral icterus (R), No scleral icterus (L), No pale conjunctivae (R), No pale conjunctivae (L), No photophobia, No TM abnormal (R), No TM abnormal (L), No pharyngeal erythema, No tonsillar exudate, No other, No discharge, No EOMI; hearing is well preserved; No hard of hearing; oral hygience is good; No ulceration, No xanthelasmas are seen Neck: No non-tender, No full range of motion, No supple, No normal inspection, No carotid bruit, No limited range of motion, No lymphadenopathy (R), No lymphadenopathy (L), No tender lateral, No tender midline, No thyromegaly, No other; carotid pulses are 2 + bilaterally; No with good upstrokes Respiratory: No accessory muscle use, No respiratory distress, No chest tender , No chest expansion is symmetric; chest is bilaterally symmetric; No lungs clear to percussion; lungs clear to auscultation; No crackles, No rhonchi, No rales, No stridor, No wheezing, No pleural rub, No other Cardiovascular: regular rate-rhythm; No irregularly irregular, No extra beats, No parasternal heave is noted, No JVD, No edema, No bradycardia, No tachycardia , No point of maximal impulse, No cardiac thrills are palpable; S1 and S2; No gallop/S3, No gallop/S4, No diastolic murmur, No systolic murmur, No friction rub, No click, No other Gastrointestinal: No tender, No soft, No round, No distended, No pulsatile mass , No organomegaly, No guarding, No rebound, No tenderness, No hernia, No mass, No audible bowel sounds, No abnormal bowel sounds, No abdominal bruits, No spleenomegaly, No other Rectal: deferred Extremities: No normal range of motion, No non-tender, No normal inspection, No pedal edema, No calf tenderness, No normal capillary refill, No pelvis stable , No calf tenderness, No inflammation, No pedal edema, No slow capillary refill , No swelling, No other, No abrasion, No clubbing, No cyanosis, No ecchymosis, No laceration, No no lower extremity edema bilateral, No significant edema, No tenderness, No wound Neurologic/Psychiatric: no motor/sensory deficits, alert, normal mood/affect, oriented x 3, power is 5/5 both on sides Skin: No normal color, No warm/dry, No cyanosis, No cool, No diaphoresis, No damp, No ecchymosis, No jaundice, No mottled, No pallor, No rash, No tattoos/ piercings, No ulcerations, No rash on exposed areas, No ulcerations on exposed areas, No other Data Review Labs Laboratory Tests 05/05/18 09:20: White Blood Count 8.8, Red Blood Count 4.70, Hemoglobin 14.1, Hematocrit 40, Mean Corpuscular Volume 85, Mean Corpuscular Hemoglobin 30, Mean Corpuscular Hemoglobin Concent 35, Red Cell Distribution Width 13.9, Platelet Count 276, Mean Platelet Volume 10.9H, Neutrophils (%) (Auto) 59, Lymphocytes (%) (Auto) 32 , Monocytes (%) (Auto) 8, Eosinophils (%) (Auto) 1, Basophils (%) (Auto) 0, Neutrophils # (Auto) 5.2, Lymphocytes # (Auto) 2.8, Monocytes # (Auto) 0.7, Eosinophils # (Auto) 0.1, Basophils # (Auto) 0.0, Sodium Level 131L, Potassium Level 5.1H, Chloride Level 95L, Carbon Dioxide Level 24, Anion Gap 12, Blood Urea Nitrogen 12, Creatinine 0.79, Estimat Glomerular Filtration Rate > 60, BUN/ Creatinine Ratio 15, Glucose Level 409*H, Calcium Level 9.4, Corrected Calcium 9.2, Total Bilirubin 0.5, Aspartate Amino Transf (AST/SGOT) 15, Alanine Aminotransferase (ALT/SGPT) 27, Alkaline Phosphatase 74, Troponin I < 0.30, Total Protein 7.4, Albumin 4.2 05/05/18 11:56: Glucometer 310H ECG Impression ECG Initial ECG Impression: Acute NC A/P-Cardiology Assessment/Admission Diagnosis Chest pain, STEMI, Nonischemic cardiomyopathy, Resting lower extremity discomfort, Active smoking, Severe type I diabetes, Hyperlipidemia, Hypertension, Drug abuse Admission Status: Inpatient Order (span 2 midnights) Reason for Inpatient Admission: STEMI Plan Chest pain, STEMI, emergent coronary angiography. Nonischemic cardiomyopathy, continue goal-directed medical therapy. Resting lower extremity discomfort, will require peripheral angiography. Active smoking, smoking cessation was strongly recommended. Severe type I diabetes, will request consultation from Dr. Che. Hyperlipidemia, restart statin. Hypertension, restart outpatient antihypertensive. Drug abuse, counselled on meth abuse. Critically ill patient. Clinical Quality Measures AMI/AHF: ASA po Prior to arrival: Yes (BY EMS) Maksim ENRIQUEZ MD May 05, 2018 11:25 am
--- NOTE | 2018-05-05 11:26 | Cardiac Procedure Note-CS/ASA ---
Pre-Procedure Note Pre-Op Procedure Note H&P Reviewed The H&P was reviewed, patient examined and no changes noted. Date H&P Reviewed: May 05, 2018 Time H&P Reviewed: 09:50 Conscious Sedation Pre-Proced Time 09:50 ASA Score 3 For ASA 3 and 4: Consider anesthesia and medical clearance. Also, for patients with a history of failed moderate sedation consider anesthesia. Airway Lungs Heart ASA score ASA 1: a normal healthy patient ASA 2: a patient with a mild systemic disease (mid diabetes, controlled hypertension, obesity ASA 3: a patient with a severe systemic disease that limits activity (angina , COPD, prior Myocardial infarction) ASA 4: a patient with an incapacitating disease that is a constant threat to life (CHF, renal failure) ASA 5: a moribund patient not expected to survive 24 hrs. (ruptured aneurysm) ASA 6: a declared brain patient whose organs are being harvested. For emergent operations, add the letter E after the classification Mallampati Classification Grade 1 Sedation Plan Analgesia, Amnesia, Plan communicated to team members, Discussed options with patient/fam, Discussed risks with patient/fam The patient is an appropriate candidate to undergo the planned procedure, sedation, and anesthesia. The patient immediately re-assessed prior to indication. Maksim VASQUEZ MD May 05, 2018 11:26
[2018-05-05] MEDS ORDERED: PATIENT MAY USE OWN MEDS, ALL PO SCH (11:30)
--- NOTE | 2018-05-05 11:35 | Coronary Angiography & PCI ---
Coronary Angiography & PCI DATE OF PROCEDURE: 05/05/18 INDICATION: STEMI, resting lower extremity discomfort. PREOPERATIVE DIAGNOSIS: STEMI, resting lower extremity discomfort. POSTOPERATIVE DIAGNOSIS: Subtotal occlusion of right PDA, status post successful PTCA/PCI. No significant PAD. HISTORY: This is a 42-year-old lady with history of type I diabetes, HIV, active smoking. She presented in November 2017 with a STEMI was transferred to [facility] since our hospital was on diversion. PCI was done to the proximal RPDA with Promus drug-eluting stent 2.75 x 20 mm. She then returned back to follow-up with ri and was found to have nonischemic cardiomyopathy as well and was put on goal-directed medical therapy. She presented with severe chest pain with ST elevation. The patient is also having resting pain in the right lower extremity. PAD will be ruled out. Therefore, the patient was scheduled for emergent coronary angiography. PROCEDURES PERFORMED: 1.Coronary angiography. 2.Left heart catheterization. 3.PCI to the distal RCA/proximal RPDA. 4. Abdominal aortogram. 5. Bilateral lower extremity runoff. COMPLICATIONS: None. SPECIMENS: None. ESTIMATED BLOOD LOSS: 10 mL ANESTHESIA: Conscious sedation ANTICOAGULATION: IV heparin CONTRAST: 180 mL. FLUOROSCOPY: 8.30 minutes. FLOUROSCOPY DOSE: [id number] mgy. PROCEDURE DETAILS: The patient is a 42 female and was brought to the cardiac cath lab manager after informed consent was taken. All the risks and complications were explained in detail; this included the risk of bleeding, vascular damage, stroke , SD and even . The patient was draped and prepped in the usual sterile fashion. Access was gained in the right femoral artery with a 6 Indian sheath. Coronary angiography was performed with a JR4 and a JL4 catheter. Abdominal aortogram and bilateral lower extremity runoff was performed with a pigtail catheter. FINDINGS: 1.Left main: Patent. 2.LAD: Diffuse mid and distal disease. No focal stenosis. Small vessel with diameter of less than 1.5 mm. 3.Left circumflex artery: No significant disease. 4.RCA: Subtotal occlusion within the previous stent in the RPDA with BRENDAN 2 flow. 5.Left heart catheterization: LV 169/2 mmHg. LVEDP 16 mmHg. Aortic pressure 184/95 mmHg. Mild LV systolic dysfunction with an EF of 45 percent. No gradient across the aortic valve. 6. Abdominal aortogram: Patent abdominal aorta with patent bilateral renal arteries. 7. Bilateral lower extremity runoff: No significant disease noted in the bilateral common iliac artery, external iliac artery, common femoral artery, SFA , popliteal artery, proximal segments of the arteries below the knee with three vessel runoff. RECOMMENDATIONS: Intervention is recommended to the distal RCA/RPDA INTERVENTION DETAILS: JR4 guide catheter, whisper extra-support guidewire, IV heparin for anticoagulation. One ACT was done which was 213 seconds. 2000 units of heparin were given afterwards. The lesion in the right PDA was crossed with the whisper guidewire. Predilatation was done with a 2.0 x 15mm emerge balloon at 14 anushka for 29 seconds. Door to balloon time was 59 minutes. We then took the NC Quantum 3.0 x 15 mm balloon and performed high pressure balloon dilatation in the distal part of the previous stent at 12 anushka for 33 seconds. At 16 anushka in the mid part of the stent for 17 seconds. And at 12 anushka for 36 seconds in the proximal part of the stent. Slight haziness was noted just proximal to the stent therefore IVUS was done which showed well opposed stent however just proximal to the stent there was intramural hematoma. We therefore placed a resolute integrity 3.0 x 15 mm drug-eluting stent overlapping with the previous stent. This was deployed at 16 anushka for 31 seconds. Overlap zone was postdilated with the same stent balloon at 20 anushka for 14 seconds. Excellent results. BRENDAN-3 flow with no residual stenosis. Chest pain at the end of the procedure was 0 out of 10. Right femoral artery was closed with a mynx device CONCLUSIONS: 1. Subtotal occlusion of the RPDA stent treated successfully with PTCA and PCI. 2. Long-term aspirin and Brilinta. Continue rest of the medications. 3. Smoking cessation was strongly recommended and drug abuse was strongly discouraged. 4. Patient will be admitted in the ICU. Echocardiogram. 5. Hospitalist consultation for HIV, severe diabetes will be requested. Carroll Enriquez MD, FACP, FACC, [facility] Interventional Cardiology Maksim ENRIQUEZ MD May 05, 2018 11:34
[2018-05-05] MEDS ORDERED: inSUlin ASPART (NovoLOG) 1 UNIT/0.01 ML (CHARGE PER UNIT) ONE (12:02)
[2018-05-05] MEDS: inSUlin ASPART (NovoLOG) 1 UNIT/0.01 ML (CHARGE PER UNIT) SC SCH ×3 (12:11→21:05)
--- NOTE | 2018-05-05 12:33 | Diagnostic Imaging Report ---
INDICATION: Followup heart catheter. Comparison with 12/18/2017. FINDINGS: The lungs are well-aerated. There has been clearing of pulmonary edema. The heart is not enlarged. There is no evidence of pleural effusion or pneumothorax. There is a circumscribed nodule in the right lung measuring approximately 1.7 cm which is unchanged in appearance. IMPRESSION: 1. Clearing of pulmonary edema. 2. Well-circumscribed nodule again noted overlying the midportion right lung unchanged since November. Dictated by: Dictated on workstation # [id number]
[2018-05-05] MEDS: NS IV 1000 ML 1,000 ML IV SCH (17:58)
[2018-05-05] MEDS: NICOTINE 21 MG (NICODERM) PATCH TD SCH (19:59)
[2018-05-05] MEDS ORDERED: diphenhydrAMINE 50 MG/ML INJ (BENADRYL) IVP ONE (21:00)
[2018-05-05] MEDS: TICAGRELOR 90 MG TABLET (BRILINTA) PO SCH (21:05)
[2018-05-06] VITALS (13 sets, daily range): BP systolic 120–160; BP diastolic 67–108
[2018-05-06 03:48] LABS: HEMOGLOBIN 13.3 G/DL (11.5-16.0); MEAN PLATELET VOLUME 10.7 FL (7.4-10.4); RED BLOOD COUNT 4.5 10^6/uL (4.35-5.85); RED CELL DISTRIBUTION WIDTH 14.2 % (10.0-14.5); WHITE BLOOD COUNT 9.2 10^3/uL (4.3-11.0)
[2018-05-06 04:11] LABS: MAGNESIUM 1.9 MG/DL (1.8-2.4)
[2018-05-06 04:13] LABS: BUN/CREATININE RATIO 16; CALCIUM 8.7 MG/DL (8.5-10.1); CARBON DIOXIDE 19 MMOL/L (21-32); CHLORIDE 104 MMOL/L (98-107); CREATININE SERUM 0.67 MG/DL (0.60-1.30); GFR ESTIMATED > 60; GLUCOSE 253 MG/DL (70-105); POTASSIUM 4.4 MMOL/L (3.6-5.0); SODIUM 134 MMOL/L (135-145)
[2018-05-06] MEDS: NS IV 1000 ML 1,000 ML IV SCH ×2 (04:31→10:15)
[2018-05-06] MEDS ORDERED: POTASSIUM CL 10MEQ/50ML IVPB 50 ML IV SCH (06:00)
[2018-05-06] MEDS ORDERED: KCL 20 MEQ TAB (K-DUR) PO SCH (06:00)
[2018-05-06] MEDS ORDERED: MAGNESIUM 1 GM/100 ML IVPB 100 ML IV SCH (06:00)
[2018-05-06] MEDS: inSUlin ASPART (NovoLOG) 1 UNIT/0.01 ML (CHARGE PER UNIT) SC SCH ×2 (06:36→09:26)
--- NOTE | 2018-05-06 07:39 | Diagnostic Imaging Report ---
INDICATION: Post heart catheter. COMPARISON: 05/05/2018. FINDINGS: Single view of the chest demonstrate stable nodule in the mid right lung. Left lung is clear. Heart is normal. There is no pneumothorax, effusion or infiltrate. No pneumomediastinum or mediastinal widening is seen. IMPRESSION: Stable nodule right midlung otherwise negative chest. Dictated by: Dictated on workstation # [id number]
--- NOTE | 2018-05-06 08:32 | Pulmonary Consultation ---
ERIC CANTU MED STUDENT 05/06/18 0832: History of Present Illness History of Present Illness Date of Consultation 05/06/18 08:27 Time Seen by Provider: 08:27 Date of Admission History of Present Illness This is a 42 yo female with PMH of diabetes, HIV, and is a current smoker. She also had an NV in November 2017 which was treated with stent placement in [place]. Since then she claims to have taken blood thinners as prescribed. She presented to ED 05/05/18 with central chest pain and angiography showed blockage of the stent. Dr. Enriquez performed percutaneous intervention and she is recovering in the ICU. Allergies and Home Medications Allergies Coded Allergies: hydromorphone (Verified Allergy, Unknown, b/p and oxygen level drop, ) tramadol (Verified Allergy, Unknown, ANAPHYLAXIS, 08/11/16) Uncoded Allergies: air casts (Allergy, Unknown, 11/28/17) Home Medications Clopidogrel Bisulfate 75 Mg Tablet, 75 MG PO DAILY, (Reported) Insuln Asp Prt/Insulin Aspart 300 Units/3 Ml Solution, 30 UNITS SQ BID, ( Reported) Methyl Salicylate/Menthol 35.4 Gm Cream..g., 1 GM TP Q4H PRN for PAIN-MILD TO MODERATE Prescribed by: CHAPARRO KELLEY on 11/17/17 2246 Ondansetron 8 Mg Tab.rapdis, 8 MG PO every 4 hours Prescribed by: CARL ROJO on 10/18/17 1524 Past Vkkeifw-Mwpngk-Bfsgqb Hx Past Med/Social Hx: Reviewed Nursing Past Med/Soc Hx Patient Social History Alcohol Use: Denies Use Recreational Drug Use: Yes (USED [facility] 2 WEEKS AGO) Drug of Choice: MARIJUANA, CRACK, METH Smoking Status: Current Everyday Smoker Type Used: Cigarettes 2nd Hand Smoke Exposure: Yes Recent Foreign Travel: No Contact w/Someone Who Travel: No Recent Infectious Disease Expo: No Recent Hopitalizations: No Immunizations Up To Date Date of Pneumonia Vaccine: Feb 18, 2013 Date of Influenza Vaccine: Feb 19, 2016 Seasonal Allergies Seasonal Allergies: No Past Medical History Surgeries: Yes (Left eye removed, ) Gallbladder, Tubal Ligation Respiratory: Yes Asthma, COPD Cardiac: Yes (STENT PLACE IN NOVEMBER) Neurological: Yes (psuedoseizure when really stressed out) Seizure Disorder 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 Disorders: Yes HIV/AIDS: Yes Gastrointestinal: Yes (n/v, blood stools, hx of hep C-took treatment) Musculoskeletal: Yes (right shoulder pinched nerve) Arthritis Endocrine: Yes Eye Injury Cancer: No Psychosocial: Yes Anxiety, PTSD, Bipolar, Depression Integumentary: No Blood Disorders: Yes (HIV) Family Medical History Heart Disease, Diabetes, Hypertension Review of Systems Time Seen by Provider: 08:36 ENT: Other (neck pain) Respiratory: Wheezing Cardiovascular: Chest Pain Sepsis Event Evaluation Height, Weight, BMI Height: 5'4.00" Weight: 214lbs. 0.0oz. 97.529167xk; 36.7 BMI Method:Stated Exam Exam Vital Signs Date Time Temp Pulse Resp B/P (MAP) Pulse Ox O2 Delivery O2 Flow Rate FiO2 05/06/18 08:00 75 15 136/86 (103) 98 Room Air 05/06/18 07:23 79 05/06/18 07:00 83 18 133/98 (110) 98 Room Air 05/06/18 06:00 70 22 120/69 (86) 97 Room Air 05/06/18 05:00 64 14 134/89 (104) 99 Room Air 05/06/18 04:00 97 Room Air 05/06/18 04:00 97.8 05/06/18 04:00 70 13 126/84 (98) 99 Room Air 05/06/18 03:00 64 16 134/77 (96) 98 Room Air 05/06/18 02:00 66 19 120/94 (103) 98 Room Air 05/06/18 01:00 74 05/06/18 01:00 71 20 143/86 (105) 98 Room Air 05/06/18 00:00 98.1 05/06/18 00:00 97 Room Air 05/06/18 00:00 78 23 138/67 (90) 98 Room Air 05/05/18 23:29 Room Air 05/05/18 23:00 74 19 129/77 (94) 98 Nasal Cannula 2.00 05/05/18 22:00 72 26 132/76 (94) 97 Nasal Cannula 2.00 05/05/18 21:00 70 18 144/75 (98) 100 Nasal Cannula 2.00 05/05/18 20:00 69 16 149/92 (111) 100 Nasal Cannula 2.00 05/05/18 20:00 98.6 12/16/18 20:00 97 Nasal Cannula 2.00 05/05/18 19:00 78 15 137/82 (100) 100 Room Air 05/05/18 19:00 74 05/05/18 18:00 77 13 151/96 (114) 99 Room Air 05/05/18 17:52 100 Room Air 05/05/18 17:00 79 16 160/122 (135) 99 Room Air 05/05/18 16:30 75 14 150/103 (119) 98 Room Air 05/05/18 16:00 75 16 149/89 (109) 98 Room Air 05/05/18 16:00 97.2 05/05/18 15:00 76 16 137/83 (101) 98 Room Air 05/05/18 14:00 75 12 134/87 (103) 99 Room Air 05/05/18 14:00 75 12 134/87 (103) 99 Room Air 05/05/18 13:30 72 7 137/91 (106) 100 Room Air 05/05/18 13:15 72 12 149/93 (111) 100 Room Air 05/05/18 13:01 71 05/05/18 13:00 71 16 149/93 (111) 100 Room Air 05/05/18 13:00 71 16 151/89 (109) 100 Room Air 05/05/18 12:45 69 24 140/92 (108) 99 Room Air 05/05/18 12:45 69 24 140/71 (94) 99 Room Air 05/05/18 12:30 70 13 140/71 (94) 100 Room Air 05/05/18 12:30 70 13 140/98 (112) 100 Room Air 05/05/18 12:15 73 14 155/103 (120) 100 Room Air 05/05/18 12:15 73 14 121/69 (86) 100 Room Air 05/05/18 12:00 80 12 162/118 (133) 100 Room Air 05/05/18 12:00 80 12 134/77 (96) 100 Room Air 05/05/18 11:45 74 7 135/73 (93) 100 Room Air 05/05/18 11:45 96.5 74 7 135/73 (93) 100 Room Air 05/05/18 11:43 71 05/05/18 09:44 80 18 167/100 (122) 98 Nasal Cannula 05/05/18 09:10 Nasal Cannula 05/05/18 09:09 89 18 167/92 (117) 97 Nasal Cannula I & O 05/06/18 07:00 Intake Total 1250 ml Output Total 3900 ml Balance -2650 ml Height & Weight Height: 5'4.00" Weight: 214lbs. 0.0oz. 97.596100pd; 36.7 BMI Method:Stated General Appearance: No Apparent Distress, WD/WN HEENT: Normal ENT Inspection Neck: Full Range of Motion, Normal Inspection, Supple Respiratory: Chest Non Tender, No Accessory Muscle Use, No Respiratory Distress , Wheezing Cardiovascular: Regular Rate, Rhythm, No Edema, No Gallop, No JVD, No Murmur, Normal Peripheral Pulses Capillary Refill: Less Than 3 Seconds Gastrointestinal: non tender, soft Extremity: Normal Inspection, Normal Range of Motion Neurologic/Psychiatric: Alert, Oriented x3, Normal Mood/Affect Skin: Normal Color, Warm/Dry Results Lab Laboratory Tests 05/05/18 09:20 05/06/18 03:30 Assessment/Plan Assessment/Plan STEMI -Dr. Enriquez performed intervention yesterday -Vital signs stable overnight Diabetes -SSI Smoker -advise cessation PMH of asthma and COPD -does not see anyone regularly for these conditions -some wheezing on exam R midlung nodule found on CXR HIV NURIA BERMUDEZ DO 05/06/18 1115: History of Present Illness History of Present Illness Time Seen by Provider: 11:10 History of Present Illness 42yo with hx of DM, HIV, and is a current smoker. She had recent NV s/p stent placement in [place] 11/2017. Presented to ED last night secondary to worsening central CP Dr. Enriquez did cardiac cath and placed another stent. I am consulted for ICU management.Pt is a current smoker however she is trying to quit. Allergies and Home Medications Allergies Coded Allergies: hydromorphone (Verified Allergy, Unknown, b/p and oxygen level drop, ) tramadol (Verified Allergy, Unknown, ANAPHYLAXIS, 08/11/16) Uncoded Allergies: air casts (Allergy, Unknown, 11/28/17) Home Medications Clopidogrel Bisulfate 75 Mg Tablet, 75 MG PO DAILY, (Reported) Insuln Asp Prt/Insulin Aspart 300 Units/3 Ml Solution, 30 UNITS SQ BID, ( Reported) Methyl Salicylate/Menthol 35.4 Gm Cream..g., 1 GM TP Q4H PRN for PAIN-MILD TO MODERATE Prescribed by: CHAPARRO KELLEY on 11/17/17 2246 Ondansetron 8 Mg Tab.rapdis, 8 MG PO every 4 hours Prescribed by: CARL ROJO on 10/18/17 1524 Review of Systems Time Seen by Provider: 11:13 Respiratory: Wheezing Cardiovascular: Chest Pain Exam Exam General Appearance: No Apparent Distress, WD/WN HEENT: Normal ENT Inspection Neck: Full Range of Motion, Normal Inspection, Supple Respiratory: Chest Non Tender, No Accessory Muscle Use, No Respiratory Distress , Wheezing Cardiovascular: Regular Rate, Rhythm, No Edema, No Gallop, No JVD, No Murmur, Normal Peripheral Pulses Gastrointestinal: non tender, soft Extremity: Normal Inspection, Normal Range of Motion Neurologic/Psychiatric: Alert, Oriented x3 Skin: Normal Color, Warm/Dry Assessment/Plan Assessment/Plan STEMI s/p cath stent -Dr. Enriquez following -Vital signs stable overnight R midlung nodule -Stable since 12/05 Diabetes -SSI Smoker -advise cessation HX of asthma and COPD -currently stable HIV ERIC CANTU MED STUDENT May 06, 2018 08:32 NURIA BERMUDEZ DO May 06, 2018 11:15
[2018-05-06] MEDS ORDERED: ASPIRIN E.C. 81 MG (ECOTRIN) TAB PO SCH (09:00)
[2018-05-06] MEDS: TICAGRELOR 90 MG TABLET (BRILINTA) PO SCH (09:19)
[2018-05-06] MEDS: NICOTINE 21 MG (NICODERM) PATCH TD SCH (10:15)
--- NOTE | 2018-05-06 10:16 | Consultation-Hospitalist ---
DUSTINJOSEPH DO 05/06/18 1016: HPI History of Present Illness: HPI/Chief Complaint CC: Medical management following STEMI HPI: This is a very non-compliant 42yo who underwent an emergent cath due to STEMI and tolerated that procedure well. She has very high sugars and very hesitant about taking Metformin let alone insulin which is indicated. Pt's partner is asking for dietary guidance for DM management. Currently patient is preparing for DC and will have close f/u with [facility] but declines any new meds for diabetes. Source: patient Exam Limitations: no limitations Date Seen 05/06/18 Attending Physician Maksim Enriquez MD PCP Amy Lopes DO Referring Physician Date of Admission Home Medications & Allergies Home Medications Reviewed patient Home Medication Reconciliation performed by pharmacy medication reconciliations paint technician and/or nursing. Patients Allergies have been reviewed. Allergies Allergies Coded Allergies hydromorphone (Verified Allergy, Unknown, b/p and oxygen level drop, 08/11/16) tramadol (Verified Allergy, Unknown, ANAPHYLAXIS, 08/11/16) Uncoded Allergies air casts ( Allergy, Unknown, 11/28/17) Past Eiucwpa-Uxoydf-Kqfuaa Hx Past Med/Social Hx: Reviewed Nursing Past Med/Soc Hx, Reviewed and Corrections made Patient Social History Marrital Status: cohabiting Employed/Student: unemployed Alcohol Use: Denies Use Recreational Drug Use: Yes (USED [facility] 2 WEEKS AGO) Drug of Choice: MARIJUANA, CRACK, METH Smoking Status: Current Everyday Smoker Type Used: Cigarettes 2nd Hand Smoke Exposure: Yes Physical Abuse Screen: No Sexual Abuse: No Recent Foreign Travel: No Contact w/other who traveled: No Recent Hopitalizations: No Recent Infectious Disease Expo: No Immunizations Up To Date Date of Pneumonia Vaccine: Feb 18, 2013 Date of Influenza Vaccine: Feb 19, 2016 Seasonal Allergies Seasonal Allergies: No Past Medical History Surgeries: Gallbladder, Tubal Ligation Cardiac: Coronary Artery Disease, Heart Attack, High Cholesterol, Hypertension Neurological: Seizure Disorder 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: Yes HIV/AIDS: Yes Musculoskeletal: Arthritis Endocrine: Diabetes, Non-Insulin dep HEENT: Eye Injury Psychosocial: Anxiety, PTSD, Bipolar, Depression History of Blood Disorders: Yes (HIV) Family History Heart Disease, Diabetes, Hypertension Review of Systems Constitutional: see HPI, weakness EENTM: no symptoms reported Respiratory: no symptoms reported Cardiovascular: no symptoms reported Gastrointestinal: no symptoms reported Genitourinary: no symptoms reported Musculoskeletal: no symptoms reported Skin: no symptoms reported Psychiatric/Neurological: No Symptoms Reported All Other Systems Reviewed Negative Unless Noted: Yes Physical Exam Physical Exam Vital Signs Vital Signs - First Documented 05/05/18 09:09 Pulse 89 Resp 18 B/P (MAP) 167/92 (117) Pulse Ox 97 O2 Delivery Nasal Cannula Capillary Refill : Less Than 3 Seconds Height, Weight, BMI Height: 5'4.00" Weight: 214lbs. 0.0oz. 97.123188pn; 36.7 BMI Method:Stated General Appearance: No Apparent Distress, WD/WN, Chronically ill Eyes: Bilateral Eye Normal Inspection, Bilateral Eye PERRL HEENT: PERRL/EOMI (except left eye opaque), Normal ENT Inspection, Pharynx Normal Neck: Full Range of Motion, Normal Inspection, Non Tender, Supple, Carotid Bruit Respiratory: Chest Non Tender, Lungs Clear, Normal Breath Sounds, No Accessory Muscle Use, No Respiratory Distress Cardiovascular: Regular Rate, Rhythm, No Edema, No Gallop, No JVD, No Murmur, Normal Peripheral Pulses Gastrointestinal: Normal Bowel Sounds, No Organomegaly, No Pulsatile Mass, Non Tender, Soft Back: Normal Inspection, No CVA Tenderness, No Vertebral Tenderness Extremity: Normal Capillary Refill, Normal Inspection, Normal Range of Motion, Non Tender, No Calf Tenderness, No Pedal Edema Neurologic/Psychiatric: Alert, Oriented x3, No Motor/Sensory Deficits, Normal Mood/Affect Skin: Normal Color, Warm/Dry Lymphatic: No Adenopathy Results Results/Procedures Labs Laboratory Tests 05/05/18 09:20 05/06/18 03:30 Patient resulted labs reviewed. Assessment/Plan Assessment and Plan Assess & Plan/Chief Complaint Assessment: STEMI DM OOC HIV Meth use Smoker Plan: [place] home Poor prognosis Diagnosis/Problems Diagnosis/Problems (1) ST elevation (STEMI) myocardial infarction Status: Acute Qualifiers: Involved coronary artery: unspecified coronary artery Qualified Codes: I21.3 - ST elevation (STEMI) myocardial infarction of unspecified site (2) Diabetes mellitus Status: Chronic Qualifiers: Diabetes mellitus type: type 2 Diabetes mellitus senior living insulin use: without senior living use Diabetes mellitus complication status: with circulatory complication Diabetes mellitus complication detail: with other circulatory complications Qualified Codes: E11.59 - Type 2 diabetes mellitus with other circulatory complications (3) HIV disease Status: Chronic (4) Methamphetamine abuse Status: Chronic (5) Smoker Status: Chronic (6) Noncompliance Status: Chronic Clinical Quality Measures AMI/AHF: ASA po Prior to arrival: Yes (BY EMS) DVT/VTE Risk/Contraindication: Risk Factor Score Per Nursin RFS Level Per Nursing on Admit: 4+=Very High AJAY DOUGLAS MED STUDENT 05/06/18 1142: HPI History of Present Illness: HPI/Chief Complaint CC: STEMI HPI: This is a 42yo WF with a PMHx of DM, HIV, methamphetamine use, and active smoking who presents with a STEMI. Emergent cardiac angiogram showed subtotal occlusion of the RPDA. Of note, in November 2017 she was treated with PCI in [place] for a STEMI. Today she states her pain is a 6/10, but she says this isnt unusual for her. Denies any bowel/bladder dysfunction. Morning labs showed hyponatremia 134, hypophosphatemia 3.0, and hypomagnesemia 1.9. Pt is hyperglycemic at 294- states she has been started on metformin recently but hasn't been taking it regularly. Physical Exam Physical Exam General Appearance: No Apparent Distress Respiratory: Lungs Clear, Normal Breath Sounds Cardiovascular: Normal Peripheral Pulses Extremity: No Calf Tenderness, No Pedal Edema Neurologic/Psychiatric: Alert, Oriented x3 Skin: Normal Color Assessment/Plan Assessment and Plan Assess & Plan/Chief Complaint Assessment: STEMI Uncontrolled diabetes HIV Tobaccoism Meth use Plan: Will need close f/u with [facility] for DM D/c when cleared by cardiology JOSEPH CHAN DO May 06, 2018 10:16 AJAY DOUGLAS MED STUDENT May 06, 2018 11:42
--- NOTE | 2018-05-06 12:16 | Cardiology Discharge Summary ---
Diagnosis/Chief Complaint Date of Admission 05/05/2018 Date of Discharge 05/06/2018 Admission Diagnosis STEMI Final/Discharge Diagnosis Status post-PCI to distal RCA Chief Complaint/HPI Chief Complaint/HPI This is a 42-year-old lady with history of type I diabetes, HIV, active smoking. She presented in November 2017 with a STEMI was transferred to [facility] since our hospital was on diversion. PCI was done to the proximal RPDA with Promus drug-eluting stent 2.75 x 20 mm. She then returned back to follow-up with me and was found to have nonischemic cardiomyopathy as well and was put on goal-directed medical therapy. She presented with severe chest pain with ST elevation. Substernal. Severe intensity 10/10. No radiation. No exacerbating or relieving factors. The patient is also having resting pain in the right lower extremity. PAD will be ruled out. Therefore, the patient was scheduled for emergent coronary angiography. Discharge Summary Procedures Severe subtotal stenosis in distal RCA within a previous stent, treated successfully with PTCA and PCI with another drug-eluting stent. No significant PAD on peripheral angiogram. Discharge Physical Examination Normal cardiovascular and respiratory examination. Hospital Course Unremarkable Pending Labs Discussion & Recommendations Discussion Discharge instructions were discussed at length with the patient. Smoking cessation is strongly recommended and drug abuse was strongly discouraged. Compliance with medication was strongly recommended. Healthy living was recommended. Discharge instructions took over 30 minutes to complete. Follow up appt.: Dr. Enriquez in 3-4 weeks. Dicharge Diet: Cardiac Diet Activity as Tolerated: Yes Home Medications Reviewed patient Home Medication Reconciliation performed by pharmacy medication reconciliations registered respiratory technician and/or nursing. Patients Allergies have been reviewed. Discharge Home Medications: Reviewed and agree with Discharge Medication list on patient's Discharge Instruction sheet Condition at discharge Stable. Instructions to patient/family Discharge instructions discussed with the family. Clinical Quality Measures AMI/AHF: ASA po Prior to arrival: Yes (BY EMS) DVT/VTE Risk/Contraindication: Risk Factor Score Per Nursin RFS Level Per Nursing on Admit: 4+=Very High Maksim ENRIQUEZ MD May 06, 2018 12:16
[2018-05-06] MEDS ORDERED: LISI2.5T PO (12:18)
[2018-05-06] MEDS ORDERED: ATOR40TA PO (12:18)
[2018-05-06] MEDS ORDERED: METO-333 PO (12:19)
--- NOTE | 2018-05-06 12:20 | Discharge Inst-Post CATH ---
Discharge Inst-CATH Post Cardiac Cath D/C Inst Follow Up/Plan Dr Enriquez in 2-3 weeks CARDIAC CATH DISCHARGE INSTRUCTIONS *Hold Metformin for 48 hours post heart cath. ACTIVITY * Go Home directly and rest. * Limit activity of the leg (or wrist if it was used) for 7 days including aerobics, swimming, jogging, bicycling, etc. * Restrict stair-climbing for 7 days if possible, if not, climb up with your non -cath leg, then bring together on the same step. * Avoid lifting, pushing, pulling or excessive movement of the affected extremity for 7 days. * Customary sexual activity may be resumed after 2 days-use caution not to use a position that strains or causes pain to the affected extremity. * No driving for 24 hours. * NO SMOKING. * Avoid straining for bowel movements for 7 days. * Gentle walking on level ground is allowed. * Returning to work will depend on the type of procedure and the results. Your doctor will discuss this with you. CALL YOUR DOCTOR FOR ANY OF THE FOLLOWING: *If bleeding from the puncture site occurs- Apply gentle pressure to site with clean cloth and call your doctor or EMS. * If a knot or lump forms under the skin, increases in size, or causes pain. * If bruising appears to be worsening or moving further down your leg instead of disappearing. * Temperature above 101 F. CARE OF YOUR GROIN INCISION; * Bruising or purple discoloration of the skin near the puncture site is common. * You may shower only, no bathtub bathing for 5 days. Be careful to avoid slipping as your leg may feel stiff. * If a closure device was used on your femoral artery, please see the attached guide regarding care of the device and your leg. * Leave the dressing on, until removed by office staff. CARE OF YOUR WRIST INCISION; * Bruising or purple discoloration of the skin near the puncture site is common. * You may shower. * DO NOT submerge wrist. * Leave dressing on, until removed by office staff.. Maksim ENRIQUEZ MD May 06, 2018 12:20
--- OUTSIDE RECORDS SUMMARY | 2018-05-10 14:07 | XMS REPORT | Clinical Summary ---
Author Author [facility] Organization [facility] Address Unknown Phone Unavailable Care Team Providers Care Anthropology Lecturer Name Role Phone AlvarezBenja reed SEAPORT PLANNING MANAGER Unavailable Yesi Escudero NP Unavailable Katharina Yarbrough RN Unavailable Unavailable Mian Barraza RN Unavailable Unavailable Milly Sy RN Unavailable Unavailable Self, Referral PCP Unavailable Source Comments Some departments are not documenting in the electronic medical record. If you do not see the information that you expected, contact Release of Information in the Health Information Management department at [phone] for further assistance in locating additional records.[facility] Allergies Comments Active Allergy Reactions Severity Noted [...] on file. For more information, please contact: [facility] [address] [place] [address]
--- OUTSIDE RECORDS SUMMARY | 2018-05-10 14:09 | XMS REPORT | Continuity of Care Document ---
Author Author [facility] Organization [facility] Address Unknown Phone Unavailable Allergies Active Description Code Type Severity Reaction Onset Reported/Identified Relationship to Patient Clinical Status Yes hydromorphone [id number] Drug Allergy Unknown N/A 11/05/2008 Yes air [...] Status Pt. Type Provider Facility Loc./Unit Complaint [id number] 10/04/2016 15:30:00 10/04/2016 23:59:59 CLS Preadmit MARE BAILEY APRN [facility] RT J45.909 [id number] 06/26/2013 14:58:00 06/26/2013 16:27:00 DIS Emergency TALI GOLDSMITH APRN [facility] ER FALL/RIGHT ANKLE PAIN
== END 2018-05-06 12:53 | disposition home or self-care (01) | DRG 246 ==
LOC: ER 09:09 → EDUNIT# 09:09 → CATH 09:38 → ICU 09:38 → CATH 11:38 → ICU 05-06 12:53
PROVIDERS: ADMIT Internal Medicine Interventional Cardiology; ATTEND Internal Medicine Interventional Cardiology
PROC: 027034Z Dilation of Coronary Artery, One Artery with Drug-eluting Intraluminal Device, Percutaneous Approach (ICD-10-PCS; principal; 2018-05-05)
PROC: 4A023N7 Measurement of Cardiac Sampling and Pressure, Left Heart, Percutaneous Approach (ICD-10-PCS; 2018-05-05)
PROC: B2111ZZ Fluoroscopy of Multiple Coronary Arteries using Low Osmolar Contrast (ICD-10-PCS; 2018-05-05)
PROC: B2151ZZ Fluoroscopy of Left Heart using Low Osmolar Contrast (ICD-10-PCS; 2018-05-05)
PROC: B41D1ZZ Fluoroscopy of Aorta and Bilateral Lower Extremity Arteries using Low Osmolar Contrast (ICD-10-PCS; 2018-05-05)
DX: T82.855A Stenosis of coronary artery stent, initial encounter (principal); I21.3 ST elevation (STEMI) myocardial infarction of unspecified site; I42.9 Cardiomyopathy, unspecified; I25.10 Atherosclerotic heart disease of native coronary artery without angina pectoris; E10.65 Type 1 diabetes mellitus with hyperglycemia; E10.59 Type 1 diabetes mellitus with other circulatory complications; M79.661 Pain in right lower leg; B20 Human immunodeficiency virus [HIV] disease; E87.1 Hypo-osmolality and hyponatremia; J44.9 Chronic obstructive pulmonary disease, unspecified; I10 Essential (primary) hypertension; E78.5 Hyperlipidemia, unspecified; F15.10 Other stimulant abuse, uncomplicated; E83.39 Other disorders of phosphorus metabolism; E83.42 Hypomagnesemia; R91.1 Solitary pulmonary nodule; F41.9 Anxiety disorder, unspecified; F43.10 Post-traumatic stress disorder, unspecified; F31.9 Bipolar disorder, unspecified; F17.210 Nicotine dependence, cigarettes, uncomplicated; Z91.19 Patient's noncompliance with other medical treatment and regimen; I25.2 Old myocardial infarction
CPT/HCPCS: 36415; 71045; 75625; 75716; 80048; 80053; 82962; 83735; 84100; 84484; 85025; 85027; 85347; 93005; 93306; 93458

== ENCOUNTER 2018-06-27 12:04 | Observation (INO) | payer BC, MEDICAID ==
[~2018-06-27] VITALS: Ht 166.4 cm; Wt 103.9 kg
[~2018-06-27 12:04] MED LIST changes: +CLOP75TA69 PO; +LISI2.5T PO; +METO-333 PO
[2018-06-27] MEDS ORDERED: ASPIRIN 81 MG CHEW (CHILDREN'S ASA) PO ONE (12:15)
[2018-06-27 12:20] LABS: BASOPHILS % (AUTO) 0 % (0-10); EOSINOPHILS # (AUTO) 0.1 10^3/uL (0.0-0.3); EOSINOPHILS % (AUTO) 2 % (0-10); HEMATOCRIT 41 % (35-52); HEMOGLOBIN 13.8 G/DL (11.5-16.0); LYMPHOCYTES # (AUTO) 2.6 X 10^3 (1.0-4.0); LYMPHOCYTES % (AUTO) 33 % (12-44); MEAN CORPUSCULAR HEMOGLOBIN 30 PG (25-34); MEAN CORPUSCULAR HGB CONC 34 G/DL (32-36); MEAN CORPUSCULAR VOLUME 88 FL (80-99); MEAN PLATELET VOLUME 11.1 FL (7.4-10.4); MONOCYTES # (AUTO) 0.6 X 10^3 (0.0-1.0); MONOCYTES % (AUTO) 8 % (0-12); NEUTROPHILS # (AUTO) 4.4 X 10^3 (1.8-7.8); NEUTROPHILS % (AUTO) 57 % (42-75); PLATELET COUNT 234 10^3/uL (130-400); RED CELL DISTRIBUTION WIDTH 13.7 % (10.0-14.5); WHITE BLOOD COUNT 7.8 10^3/uL (4.3-11.0)
[2018-06-27 12:34] LABS: INR 0.9 (0.8-1.4); PROTHROMBIN TIME PATIENT 12.2 SEC (12.2-14.7)
--- NOTE | 2018-06-27 12:36 | ED Chest Pain ---
General Chief Complaint: Chest Pain Stated Complaint: CP Nursing Triage Note: PT BROUGHT IN BY EMS WITH COMPLAINT OF STABBING CHEST PAIN. STATES IT HAS BEEN GOING ON FOR THE LAST HOUR AND A HALF. PT WAS GIVEN 2MG MORPHINE, 1 MG ATIVAN, AND 324 MG OF ASPIRIN BY EMS. 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 care for her children including a nephew who has cerebral palsy and was about 50 pounds and who requires lifting) Prior CP/Workup: cardiac cath (with angioplasty 05/05/18) Allergies and Home Medications Allergies Coded Allergies: hydromorphone (Verified Allergy, Unknown, b/p and oxygen level drop, ) tramadol (Verified Allergy, Unknown, ANAPHYLAXIS, 08/11/16) Uncoded Allergies: air casts (Allergy, Unknown, 11/28/17) Home Medications Atorvastatin Calcium 40 Mg Tablet, 40 MG PO DAILY Prescribed by: Maksim ENRIQUEZ on 05/06/18 1218 Clopidogrel Bisulfate 75 Mg Tablet, 75 MG PO DAILY, (Reported) Insuln Asp Prt/Insulin Aspart 300 Units/3 Ml Solution, 30 UNITS SQ BID, ( Reported) Lisinopril 2.5 Mg Tablet, 2.5 MG PO DAILY Prescribed by: Maksim ENRIQUEZ on 05/06/18 1218 Methyl Salicylate/Menthol 35.4 Gm Cream..g., 1 GM TP Q4H PRN for PAIN-MILD TO MODERATE Prescribed by: CHAPARRO KELLEY on 11/17/17 2246 Metoprolol Tartrate 25 Mg Tablet, 25 MG PO BID Prescribed by: Maksim ENRIQUEZ on 05/06/18 1219 Ondansetron 8 Mg Tab.rapdis, 8 MG PO every 4 hours Prescribed by: CARL ROJO on 10/18/17 1524 Patient Home Medication List Home Medication List Reviewed: Yes Review of Systems Review of Systems Constitutional: see HPI EENTM: No Symptoms Reported Respiratory: Shortness of Air, SOA With Exertion Cardiovascular: See HPI Gastrointestinal: Other (heartburn) Genitourinary: No Symptoms Reported Musculoskeletal: muscle pain, muscle stiffness Skin: no symptoms reported Psychiatric/Neurological: No Symptoms Reported Endocrine: No Symptoms Reported Hematologic/Lymphatic: No Symptoms Reported Past Zzauyuj-Bintlx-Dtexbt Hx Patient Social History Alcohol Use: Denies Use Recreational Drug Use: Yes Drug of Choice: MARIJUANA, CRACK, METH Type Used: Cigarettes 2nd Hand Smoke Exposure: Yes Recent Foreign Travel: No Contact w/Someone Who Travel: No Recent Infectious Disease Expo: No Recent Hopitalizations: No Immunizations Up To Date Date of Pneumonia Vaccine: Feb 18, 2013 Date of Influenza Vaccine: Mar 06, 2018 Seasonal Allergies Seasonal Allergies: No Past Medical History Surgeries: Yes (Left eye removed, ) Gallbladder, Tubal Ligation Respiratory: Yes Asthma, COPD Cardiac: Yes (STENT PLACE IN NOVEMBER) Coronary Artery Disease, Heart Attack, High Cholesterol, Hypertension Neurological: Yes (psuedoseizure when really stressed out) Seizure Disorder 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 Disorders: Yes HIV/AIDS: Yes Gastrointestinal: Yes (n/v, blood stools, hx of hep C-took treatment) Musculoskeletal: Yes (right shoulder pinched nerve) Arthritis Endocrine: Yes Diabetes, Non-Insulin dep Eye Injury Cancer: No Psychosocial: Yes Anxiety, PTSD, Bipolar, Depression Integumentary: No Blood Disorders: Yes (HIV) Family Medical History Heart Disease, Diabetes, Hypertension Physical Exam Vital Signs Vital Signs - First Documented Capillary Refill : Less Than 3 Seconds Height, Weight, BMI Height: 5'5.00" Weight: 218lbs. 0.0oz. 98.931214wd; 36.7 BMI Method:Stated General Appearance: Anxious, Other Neck: Full Range of Motion, Normal Inspection, Non Tender Respiratory: Chest Non Tender, Lungs Clear, Normal Breath Sounds, No Accessory Muscle Use, No Respiratory Distress Cardiovascular: Regular Rate, Rhythm, No Edema, No Gallop, No JVD, No Murmur, Normal Peripheral Pulses Gastrointestinal: Normal Bowel Sounds, No Organomegaly, No Pulsatile Mass, Non Tender Neurologic/Psychiatric: Alert, Oriented x3, No Motor/Sensory Deficits, Normal Mood/Affect Other comments Heavily tattooed Progress/Results/Core Measures Results/Orders Lab Results Laboratory Tests Test 06/27/18 12:11 Range/Units White Blood Count 7.8 4.3-11.0 10^3/uL Red Blood Count 4.61 4.35-5.85 10^6/uL Hemoglobin 13.8 11.5-16.0 G/DL Hematocrit 41 35-52 % Mean Corpuscular Volume 88 80-99 FL Mean Corpuscular Hemoglobin 30 25-34 PG Mean Corpuscular Hemoglobin Concent 34 32-36 G/DL Red Cell Distribution Width 13.7 10.0-14.5 % Platelet Count 234 130-400 10^3/uL Mean Platelet Volume 11.1 H 7.4-10.4 FL Neutrophils (%) (Auto) 57 42-75 % Lymphocytes (%) (Auto) 33 12-44 % Monocytes (%) (Auto) 8 0-12 % Eosinophils (%) (Auto) 2 0-10 % Basophils (%) (Auto) 0 0-10 % Neutrophils # (Auto) 4.4 1.8-7.8 X 10^3 Lymphocytes # (Auto) 2.6 1.0-4.0 X 10^3 Monocytes # (Auto) 0.6 0.0-1.0 X 10^3 Eosinophils # (Auto) 0.1 0.0-0.3 10^3/uL Basophils # (Auto) 0.0 0.0-0.1 10^3/uL Prothrombin Time 12.2 12.2-14.7 SEC INR Comment 0.9 0.8-1.4 Activated Partial Thromboplast Time 23 L 24-35 SEC D-Dimer 0.36 0.00-0.49 UG/ML Sodium Level 135 135-145 MMOL/L Potassium Level 4.3 3.6-5.0 MMOL/L Chloride Level 101 98-107 MMOL/L Carbon Dioxide Level 22 21-32 MMOL/L Anion Gap 12 5-14 MMOL/L Blood Urea Nitrogen 6 L 7-18 MG/DL Creatinine 0.70 0.60-1.30 MG/DL Estimat Glomerular Filtration Rate > 60 BUN/Creatinine Ratio 9 Glucose Level 366 H 70-105 MG/DL Calcium Level 9.2 8.5-10.1 MG/DL Corrected Calcium 9.1 8.5-10.1 MG/DL Magnesium Level 2.0 1.8-2.4 MG/DL Total Bilirubin 0.4 0.1-1.0 MG/DL Aspartate Amino Transf (AST/SGOT) 19 5-34 U/L Alanine Aminotransferase (ALT/SGPT) 19 0-55 U/L Alkaline Phosphatase 73 40-136 U/L Myoglobin 17.2 10.0-92.0 NG/ML Troponin I < 0.028 <0.028 NG/ML B-Type Natriuretic Peptide 33.0 <100.0 PG/ML Total Protein 7.1 6.4-8.2 GM/DL Albumin 4.1 3.2-4.5 GM/DL My Orders Orders - CARL ROJO MD Morphine Injection (Morphine Injection (06/27/18 12:56) Medications Given in ED Current Medications Medications Dose Ordered Sig/Rnady Route Start Time Stop Time Status Last Admin Dose Admin Morphine Sulfate 10 mg STK-MED ONCE .ROUTE 06/27/18 12:56 06/27/18 13:01 DC 06/27/18 12:58 2 MG Vital Signs/I&O 06/27/18 06/27/18 12:04 12:04 Pulse 78 Resp 19 B/P (MAP) 130/91 (104) Pulse Ox 99 99 O2 Delivery Nasal Cannula Nasal Cannula O2 Flow Rate 2.00 2.00 Blood Pressure Mean: 104 Departure Communication (Admissions) Although the patient is a previously seen by Dr. Enriquez he is out of town and Dr. Aguirre is a covering pododermatologist. Spoke to Dr. Collado from [facility] at 1410. The patient will be admitted as an observation status. Impression Primary Impression: ASHD/acute chest pain Disposition: ADMITTED INPATIENT Condition: Stable/Unchanged Admissions Decision to Admit Reason: Admit from ER (General) Decision to Admit/Date: Jun 27, 2018 Time/Decision to Admit Time: 14:10 Departure-Patient Inst. Referrals: CHUCKIE MARIE DO (PCP) Primary Care Physician FRANDY DEUTSCH (Family) Primary Care Physician CARL ROJO MD Jun 27, 2018 12:36
[2018-06-27 12:41] LABS: ALANINE AMINOTRANSFERASE 19 U/L (0-55); ALBUMIN 4.1 GM/DL (3.2-4.5); ALKALINE PHOSPHATASE 73 U/L (40-136); BILIRUBIN,TOTAL 0.4 MG/DL (0.1-1.0); BUN/CREATININE RATIO 9; CALCIUM 9.2 MG/DL (8.5-10.1); CARBON DIOXIDE 22 MMOL/L (21-32); CHLORIDE 101 MMOL/L (98-107); GFR ESTIMATED > 60; GLUCOSE 366 MG/DL (70-105); POTASSIUM 4.3 MMOL/L (3.6-5.0); SODIUM 135 MMOL/L (135-145); TOTAL PROTEIN 7.1 GM/DL (6.4-8.2)
--- NOTE | 2018-06-27 12:45 | Diagnostic Imaging Report ---
PATIENT HISTORY: Chest pain. TECHNIQUE: Single frontal view of the chest. COMPARISON: 05/06/2018. FINDINGS: The lung volumes are normal. No focal consolidation is seen. There is a 1.7 cm nodule in the right mid lung. This appears unchanged compared to October 2017. No cross-sectional imaging is available. No large pleural effusion or pneumothorax is seen. The cardiomediastinal silhouette is normal in size and contour. No acute osseous abnormality is seen. IMPRESSION: 1. No acute pulmonary abnormality seen. 2. Right pulmonary nodule appears stable since October 2017. No comparison CT is available, and this would be recommended if not performed elsewhere. Dictated by: Dictated on workstation # [id number]
[2018-06-27 12:48] LABS: MYOGLOBIN SERUM 17.2 NG/ML (10.0-92.0)
[2018-06-27] MEDS ORDERED: morphine INJ 10 MG/ML 1ML (SYR OR VIAL) ONE (12:56)
--- OUTSIDE RECORDS SUMMARY | 2018-06-27 14:37 | XMS REPORT | Clinical Summary ---
Author Author [facility] Organization [facility] Address Unknown Phone Unavailable Care Team Providers Care Seamstress Fitter Name Role Phone AlvarezBenja reed TRANSMISSION INSPECTOR Unavailable Yesi Escudero NP Unavailable Katharina Yarbrough RN Unavailable Unavailable Mian Barraza RN Unavailable Unavailable Milly Sy RN Unavailable Unavailable Self, Referral PCP Unavailable Source Comments Some departments are not documenting in the electronic medical record. If you do not see the information that you expected, contact Release of Information in the Health Information Management department at [phone] for further assistance in locating additional records.[facility] Allergies Comments Active Allergy Reactions Severity [...] on file. For more information, please contact: [facility] [address] [place] [address]
--- OUTSIDE RECORDS SUMMARY | 2018-06-27 14:38 | XMS REPORT | Continuity of Care Document ---
Author Author [facility] Organization [facility] Address Unknown Phone Unavailable Allergies Active Description Code Type Severity Reaction Onset Reported/Identified Relationship to Patient Clinical Status Yes hydromorphone [id number] Drug Allergy Unknown N/A 11/05/2008 Yes air [...] Status Pt. Type Provider Facility Loc./Unit Complaint [id number] 10/04/2016 15:30:00 10/04/2016 23:59:59 CLS Preadmit MARE BAILEY APRN [facility] RT J45.909 [id number] 06/26/2013 14:58:00 06/26/2013 16:27:00 DIS Emergency TALI GOLDSMITH APRN [facility] ER FALL/RIGHT ANKLE PAIN
[2018-06-27 15:30] VITALS: BP 130/9
[2018-06-27] MEDS ORDERED: CATHETER FLUSH 10 ML SYR IV PRN (16:15)
--- NOTE | 2018-06-27 16:19 | NUR ---
Initial visit: pt states she is having stabbing pain in her chest and left shoulder 10/. Pt said it is the same kind of pain that she had when admitted. Pt welcomed prayer and I notified TAMI Dunn.
[2018-06-27] MEDS ORDERED: PATIENT MAY USE OWN MEDS, ALL PO SCH (16:45)
[2018-06-27] MEDS ORDERED: morphine INJ 10 MG/ML 1ML (SYR OR VIAL) IVP PRN (16:45)
[2018-06-27] MEDS ORDERED: NITROGLYCERIN 0.4 MG SL TABS BTL 25'S SL PRN (16:45)
[2018-06-27 17:00] VITALS: BP 135/85
[2018-06-27] MEDS: inSUlin ASPART (NovoLOG) 1 UNIT/0.01 ML (CHARGE PER UNIT) SC SCH ×2 (17:00→20:27)
[2018-06-27 17:04] VITALS: BP 161/104
--- NOTE | 2018-06-27 17:30 | NUR ---
PT REFUSES NITRO TABLET STATING LAST TIME SHE TOOK IT IT BOTTOMED HER BLOOD PRESSURE AND HEART RATE OUTT.
[2018-06-27] MEDS: morphine INJ 4 MG/ML 1 ML (VIAL/SYRINGE) IV PRN ×2 (17:32→20:27)
[2018-06-27 18:00] VITALS: BP 130/79
[2018-06-27 20:00] VITALS: BP 141/98
[2018-06-27] MEDS: CATHETER FLUSH 10 ML SYR IV SCH (20:28)
[2018-06-27] MEDS ORDERED: meTOprolol TARTRATE 25 MG (LOPRESSOR) TABLET PO SCH (21:00)
[2018-06-28] VITALS: BP 96/61
--- NOTE | 2018-06-28 02:09 | Consultation-Cardiology ---
HPI-Cardiology Cardiology Consultation Date of Consultation 06/28/18 Date of Admission Time Seen by Provider: 02:05 Indication: chest pain HPI 42 years old lady with history of coronary artery disease, had a stent placed after having an acute myocardial infarction in November 2017 and another stent placed in the same artery [place] [address] Enriquez. Was moving last week when she started to have recurrent episodes of pain, initially it was waxing and waning then yesterday became steady, described as achiness on the left side of her chest persistent worse by movement and taking deep breath or coughing. No palpitation. No syncope or near syncopal episodes. No claudications. EKG is abnormal, did not change compared to her baseline, cardiac enzymes were negative Home Medications & Allergies Allergies: Coded Allergies: hydromorphone (Verified Allergy, Unknown, b/p and oxygen level drop, ) tramadol (Verified Allergy, Unknown, ANAPHYLAXIS, 08/11/16) Uncoded Allergies: air casts (Allergy, Unknown, 11/28/17) Home Medication List Reviewed: Yes HVB-Eybzlh-Fcvffh Hx Patient Social History Alcohol Use: Denies Use Recreational Drug Use: Yes Drug of Choice: MARIJUANA, CRACK, METH Type Used: Cigarettes 2nd Hand Smoke Exposure: Yes Recent Foreign Travel: No Recent Infectious Disease Expo: No Recent Hopitalizations: No Immunizations Up To Date Date of Pneumonia Vaccine: Feb 18, 2013 Date of Influenza Vaccine: Mar 06, 2018 Past Medical History as described below Family Medical History Significant Family History: Heart Disease, Diabetes, Hypertension Family History: Cardiovascular disease 19 FATHER 19 MOTHER Diabetes mellitus 19 FATHER FH: lung disease 19 MOTHER Review of Systems Constitutional: see HPI; No chills, No diaphoresis, No dizziness, No fever, No malaise, No weakness, No weight gain, No weight loss, No other EENTM: see HPI, no symptoms reported Respiratory: see HPI, cough, dyspnea on exertion; No hemoptysis, No orthopnea, No phlegm, No short of breath, No stridor, No wheezing, No other Cardiovascular: see HPI, chest pain; No edema, No Hx of Intervention, No palpitations, No syncope, No vascular heart diseas, No other Gastrointestinal: no symptoms reported, see HPI Genitourinary: no symptoms reported, see HPI Musculoskeletal: no symptoms reported, see HPI Skin: no symptoms reported, see HPI Psychiatric/Neurological: No Symptoms Reported, See HPI Reviewed Test Results Reviewed Test Results Lab Laboratory Tests Test 06/27/18 12:11 06/27/18 16:55 06/27/18 18:05 06/27/18 20:19 Range/Units White Blood Count 7.8 4.3-11.0 10^3/uL Red Blood Count 4.61 4.35-5.85 10^6/uL Hemoglobin 13.8 11.5-16.0 G/DL Hematocrit 41 35-52 % Mean Corpuscular Volume 88 80-99 FL Mean Corpuscular Hemoglobin 30 25-34 PG Mean Corpuscular Hemoglobin Concent 34 32-36 G/DL Red Cell Distribution Width 13.7 10.0-14.5 % Platelet Count 234 130-400 10^3/uL Mean Platelet Volume 11.1 H 7.4-10.4 FL Neutrophils (%) (Auto) 57 42-75 % Lymphocytes (%) (Auto) 33 12-44 % Monocytes (%) (Auto) 8 0-12 % Eosinophils (%) (Auto) 2 0-10 % Basophils (%) (Auto) 0 0-10 % Neutrophils # (Auto) 4.4 1.8-7.8 X 10^3 Lymphocytes # (Auto) 2.6 1.0-4.0 X 10^3 Monocytes # (Auto) 0.6 0.0-1.0 X 10^3 Eosinophils # (Auto) 0.1 0.0-0.3 10^3/uL Basophils # (Auto) 0.0 0.0-0.1 10^3/uL Prothrombin Time 12.2 12.2-14.7 SEC INR Comment 0.9 0.8-1.4 Activated Partial Thromboplast Time 23 L 24-35 SEC D-Dimer 0.36 0.00-0.49 UG/ML Sodium Level 135 135-145 MMOL/L Potassium Level 4.3 3.6-5.0 MMOL/L Chloride Level 101 98-107 MMOL/L Carbon Dioxide Level 22 21-32 MMOL/L Anion Gap 12 5-14 MMOL/L Blood Urea Nitrogen 6 L 7-18 MG/DL Creatinine 0.70 0.60-1.30 MG/DL Estimat Glomerular Filtration Rate > 60 BUN/Creatinine Ratio 9 Glucose Level 366 H 70-105 MG/DL Calcium Level 9.2 8.5-10.1 MG/DL Corrected Calcium 9.1 8.5-10.1 MG/DL Magnesium Level 2.0 1.8-2.4 MG/DL Total Bilirubin 0.4 0.1-1.0 MG/DL Aspartate Amino Transf (AST/SGOT) 19 5-34 U/L Alanine Aminotransferase (ALT/SGPT) 19 0-55 U/L Alkaline Phosphatase 73 40-136 U/L Myoglobin 17.2 10.0-92.0 NG/ML Troponin I < 0.028 < 0.028 <0.028 NG/ML B-Type Natriuretic Peptide 33.0 <100.0 PG/ML Total Protein 7.1 6.4-8.2 GM/DL Albumin 4.1 3.2-4.5 GM/DL Glucometer 218 H 238 H 70-110 MG/DL Physical Exam Vital Signs Vital Signs - First Documented 06/27/18 20:00 Temp 97.5 Capillary Refill : Less Than 3 Seconds Height, Weight, BMI Height: 5'5.50" Weight: 222lbs. 15.0oz. 101.407116ad; 36.5 BMI Method:Stated General Appearance: No Apparent Distress, WD/WN Eyes: Bilateral Eye Normal Inspection, Bilateral Eye PERRL, Bilateral Eye EOMI HEENT: PERRL/EOMI, TMs Normal, Normal ENT Inspection, Pharynx Normal Neck: Full Range of Motion, Normal Inspection, Non Tender, Supple, Carotid Bruit Respiratory: Chest Non Tender, Lungs Clear, Normal Breath Sounds, No Accessory Muscle Use, No Respiratory Distress Cardiovascular: Regular Rate, Rhythm, No Edema, No Gallop, No JVD, No Murmur, Normal Peripheral Pulses Gastrointestinal: Normal Bowel Sounds, No Organomegaly, No Pulsatile Mass, Non Tender, Soft Back: Normal Inspection, No CVA Tenderness, No Vertebral Tenderness Extremity: Normal Capillary Refill, Normal Inspection, Normal Range of Motion, Non Tender, No Calf Tenderness, No Pedal Edema Neurologic/Psychiatric: Alert, Oriented x3, No Motor/Sensory Deficits, Normal Mood/Affect Skin: Normal Color, Warm/Dry Lymphatic: No Adenopathy A/P-Cardiology Admission Diagnosis chest pain coronary artery disease Pulmonary nodule Diabetes mellitus Assessment/Plan Chest pain, nonspecific, reproducible by movement and coughing. Most probably musculoskeletal, EKG did not show any acute changes from baseline, cardiac enzymes were negative. I doubt that it is cardiac in nature at this time. Chest x-ray showed right pulmonary nodule that need to be followed as an outpatient. Coronary artery disease, history of myocardial infarction in November 2017 and had a stent to the right coronary artery, occluded in April 2018 and had another stent placed in the right PDA by Dr. Enriquez Pulmonary nodule noted on her chest x-ray, recommended CT scan as an outpatient Diabetes mellitus, followed and managed by primary care physician Tobaccoism, still an active smoker, educated on smoking cessation History of methamphetamine use Noncompliance with medicatio Clinical Quality Measures AMI/AHF: ASA po Prior to arrival: Yes DVT/VTE Risk/Contraindication: Risk Factor Score Per Nursin RFS Level Per Nursing on Admit: 3=High TENISHA KRUEGER MD Jun 28, 2018 02:09
[2018-06-28] MEDS: morphine INJ 4 MG/ML 1 ML (VIAL/SYRINGE) IV PRN ×2 (02:23→05:17)
[2018-06-28] MEDS: CATHETER FLUSH 10 ML SYR IV SCH (02:23)
[2018-06-28 04:00] VITALS: BP 112/66
[2018-06-28 04:26] LABS: CHOLESTEROL 206 MG/DL (< 200); HDL CHOLESTEROL 49 MG/DL (40-60); TRIGLYCERIDES 277 MG/DL (<150); VLDL CHOLESTEROL 55 MG/DL (5-40)
[2018-06-28] MEDS: inSUlin ASPART (NovoLOG) 1 UNIT/0.01 ML (CHARGE PER UNIT) SC SCH ×2 (05:21→12:05)
[2018-06-28 08:00] VITALS: BP 107/65
[2018-06-28 09:00] VITALS: BP 112/63
[2018-06-28] MEDS ORDERED: CLOPIDOGREL 75 MG (PLAVIX) TABLET PO SCH (09:00)
[2018-06-28] MEDS ORDERED: lisINopril 5 MG (PRINIVIL) TABLET PO SCH (09:00)
[2018-06-28] MEDS ORDERED: ASPI-983 PO (10:01)
[2018-06-28] MEDS ORDERED: EMTR1TAB13 PO (10:01)
[2018-06-28] MEDS ORDERED: SULF-222 PO (10:01)
[2018-06-28] MEDS ORDERED: CLOP75TA28 PO (10:01)
[2018-06-28] MEDS ORDERED: HYDR-3812 PO (10:01)
[2018-06-28] MEDS ORDERED: DOLU50TA PO (10:01)
[2018-06-28] MEDS ORDERED: BUPR150T14 PO (10:01)
[2018-06-28] MEDS ORDERED: RT-ALBUINH IH (10:22)
[2018-06-28] MEDS ORDERED: INSU100V16 SQ (10:22)
--- NOTE | 2018-06-28 10:34 | NUR ---
PATIENT LISTED HER MEDICATIONS, I COMPARED IT WITH THE EXT MED HX. SHE WAS PRESCRIBED SOME MEDICATIONS IN APRIL FROM DR. VASQUEZ, THESE WERE NEVER PICKED UP FROM [facility] SO I REMOVED THEM FROM THE MED REC. SHE STATES SHE DID NOT TAKE THEM. THEY WERE LISINOPRIL 2.5MG DAILY, METOPROLOL TARTRATE 25MG BID, AND LIPITOR 40MG DAILY. SHE FILLED BACTRIM #20 FOR A 10 DAY SUPPLY ON 06-05-18- SHE STATES SHE IS TAKING IT ONCE DAILY BECAUSE 2 DAILY IS TOO MUCH. SHE HAS NOT COMPLETED THIS THERAPY YET, SHE TAKES IT WHEN SHE HAS AN OUTBREAK. SHE STATES SHE TAKES NOVOLOG MIX 70/30 50 UNITS WITH BREAKFAST AND SUPPER THEN SHE TAKES 55 UNITS OF REGULAR NOVOLOG WITH LUNCH. SHE HAS NOT FILLED THESE RECENTLY AT [facility] BUT SHE STATES SHE WAS GETTING THEM FROM . SHE FILLED A PROAIR INHALER IN AUGUST AT [facility] AND STATES SHE USES IT PRN. SHE TAKES ASPIRIN 81MG DAILY OTC
--- NOTE | 2018-06-28 12:15 | Short Stay Summary ---
History of Present Illness History of Present Illness Reason for visit/HPI 42 yo female presented to ER due to chest pain in mid chest and shoulder. Date of Admission Jun 27, 2018 at 14:33 Date of Discharge Jun 28, 2018 Time Seen by Provider: 11:30 Attending Physician Jersey Collado MD Admitting Physician Amy Lopes DO Consult Allergies and Home Medications Allergies Coded Allergies: hydromorphone (Verified Allergy, Unknown, b/p and oxygen level drop, ) tramadol (Verified Allergy, Unknown, ANAPHYLAXIS, 08/11/16) Uncoded Allergies: air casts (Allergy, Unknown, 11/28/17) Home Medications Albuterol Sulfate 1 Puff Puff, 2 PUFF IH Q4H PRN for SHORTNESS OF BREATH, ( Reported) 1 PUFF = 90 MCG Aspirin 81 Mg Tablet.dr, 81 MG PO HS, (Reported) Atorvastatin Calcium 20 Mg Tablet, 20 MG PO DAILY Prescribed by: JERSEY COLLADO on 06/28/18 1223 Bupropion HCl 150 Mg Tablet.er, 300 MG PO HS, (Reported) TAKES 2 (150MG) TABLETS Clopidogrel Bisulfate 75 Mg Tablet, 75 MG PO HS, (Reported) Dolutegravir Sodium 50 Mg Tablet, 50 MG PO HS, (Reported) Emtricitabine/Tenofov Alafenam 1 Each Tablet, 1 TAB PO HS, (Reported) Hydrocodone/Acetaminophen 1 Each Tablet, 1 TAB PO Q6H PRN for PAIN-MODERATE, ( Reported) LAST FILLED #20 8-20-18 Insulin Aspart 100 Unit/1 Ml Susp, 55 UNIT SQ 1200, (Reported) WITH LUNCH Insuln Asp Prt/Insulin Aspart 300 Units/3 Ml Solution, 50 UNITS SQ 0800,1800, ( Reported) WITH BREAKFAST AND SUPPER Lisinopril 5 Mg Tablet, 2.5 MG PO DAILY@0900 Prescribed by: JERSEY COLLADO on 06/28/18 1223 Patient Home Medication List Home Medication List Reviewed: Yes Past Vmwhrjb-Qwborw-Vyadzq Hx Patient Social History Alcohol Use: Denies Use Recreational Drug Use: Yes Drug of Choice: MARIJUANA, CRACK, METH Type Used: Cigarettes 2nd Hand Smoke Exposure: Yes Recent Foreign Travel: No Contact w/other who traveled: No Recent Hopitalizations: No Recent Infectious Disease Expo: No Immunizations Up To Date Date of Pneumonia Vaccine: Feb 18, 2013 Date of Influenza Vaccine: Mar 06, 2018 Seasonal Allergies Seasonal Allergies: No Surgeries Yes (Left eye removed, ) Gallbladder, Tubal Ligation Respiratory Yes Cardiovascular Yes (STENT PLACE IN NOVEMBER) Coronary Artery Disease, Heart Attack, High Cholesterol, Hypertension Neurological Yes (psuedoseizure when really stressed out) Seizure Disorder 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 System Hx 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 Disorders: Yes HIV/AIDS: Yes Gastrointestinal Yes (n/v, blood stools, hx of hep C-took treatment) Musculoskeletal Yes (right shoulder pinched nerve) Arthritis Endocrine History of Endocrine Disorders: Yes Endocrine Disorders: Diabetes, Non-Insulin dep HEENT HEENT Disorders: Eye Injury Cancer No Psychosocial History of Psychiatric Problem: Yes Behavioral Health Disorders: Anxiety, PTSD, Bipolar, Depression Integumentary History of Skin or Integumenta: No Blood Transfusions History of Blood Disorders: Yes (HIV) Family Medical History Significant Family History: Heart Disease, Diabetes, Hypertension Family Hx: Cardiovascular disease 19 FATHER 19 MOTHER Diabetes mellitus 19 FATHER FH: lung disease 19 MOTHER Review of Systems Constitutional: No fever Respiratory: No cough Cardiovascular: see HPI Gastrointestinal: No nausea, No vomiting Genitourinary: No dysuria Musculoskeletal: muscle pain Psychiatric/Neurological: No Symptoms Reported Physical Exam Vital Signs Vital Signs - First Documented 06/27/18 20:00 Temp 97.5 Capillary Refill : Less Than 3 Seconds Height, Weight, BMI Height: 5'5.50" Weight: 229lbs. 0.0oz. 103.788847fx; 36.5 BMI Method:Stated General Appearance: No Apparent Distress Respiratory: Lungs Clear, Normal Breath Sounds, Other (chest ttp) Cardiovascular: Regular Rate, Rhythm, No Murmur Gastrointestinal: Normal Bowel Sounds, Non Tender, Soft Extremity: No Pedal Edema Neurologic/Psychiatric: Alert Skin: Normal Color, Warm/Dry Clinical Quality Measures AMI/AHF: ASA po Prior to arrival: Yes DVT/VTE Risk/Contraindication: Risk Factor Score Per Nursin RFS Level Per Nursing on Admit: 3=High Short Stay Diagnosis Discharge Diagnosis-Short Stay Admission Diagnosis: Chest pain Final Discharge Diagnosis: Chest pain- EKGk no changes, troponin neg. Seen by Cardiology, not felt to be cardiac. Conclusion Labs Laboratory Tests 06/27/18 16:55: Glucometer 218H 06/27/18 18:05: Troponin I < 0.028 2/7/19 20:19: Glucometer 238H 06/28/18 03:10: Triglycerides Level 277H, Cholesterol Level 206H, LDL Cholesterol Direct 127, VLDL Cholesterol 55H, HDL Cholesterol 49 06/28/18 05:19: Glucometer 303H Conclusion/Plan See discharge diagnosis JERSEY COLLADO MD Jun 28, 2018 12:15
[2018-06-28] MEDS ORDERED: ATOR20TA66 PO (12:23)
[2018-06-28] MEDS ORDERED: LISI-556 PO (12:23)
--- NOTE | 2018-06-28 12:30 | Discharge Instructions ---
Discharge [facility] Discharge Medications New, Converted or Re-Newed RX: Transmitted to Pharmacy New Medications: Atorvastatin Calcium (Atorvastatin Calcium) 20 Mg Tablet 20 MG PO DAILY, #30 TAB 0 Refills Lisinopril (Lisinopril) 5 Mg Tablet 2.5 MG PO DAILY@0900, #30 TAB 0 Refills Continued Medications: Albuterol Sulfate (Proair Hfa) 1 Puff Puff 2 PUFF IH Q4H PRN for SHORTNESS OF BREATH, INHALER 1 PUFF = 90 MCG Aspirin (Aspirin EC) 81 Mg Tablet.dr 81 MG PO HS, TAB Bupropion HCl (Bupropion HCl Sr) 150 Mg Tablet.er 300 MG PO HS, TAB TAKES 2 (150MG) TABLETS Clopidogrel Bisulfate (Clopidogrel) 75 Mg Tablet 75 MG PO HS, TAB Dolutegravir Sodium (Tivicay) 50 Mg Tablet 50 MG PO HS, TAB Emtricitabine/Tenofov Alafenam (Descovy 200-25 mg Tablet) 1 Each Tablet 1 TAB PO HS, TAB Hydrocodone/Acetaminophen (Hydrocodone-Acetamin 5-325 mg) 1 Each Tablet 1 TAB PO Q6H PRN for PAIN-MODERATE, TAB LAST FILLED #20 18 Insulin Aspart (Novolog) 100 Unit/1 Ml Susp 55 UNIT SQ 1200, EACH WITH LUNCH Insuln Asp Prt/Insulin Aspart (Novolog Mix 70-30 Flexpen Syrn) 300 Units/3 Ml Solution 50 UNITS SQ 0800,1800, EA WITH BREAKFAST AND SUPPER Discontinued Medications: Sulfamethoxazole/Trimethoprim (Sulfamethoxazole-Tmp Ds Tablet) 1 Each Tablet 1 TAB PO HS, TAB #20 FILLED 19 Patient Instructions Goal/Follow Up Appt: Follow up with Ibis Anguiano APRN at [facility] on 07/03 at 11:40 am. Return to The Hospital For: Worsening chest pain, shortness of breath, nausea, sweatiness Activity & Diet Discharge Diet: Cardiac Diet Activity as Tolerated: Yes JERSEY HAQUE MD Jun 28, 2018 08:30
== END 2018-06-28 15:00 | disposition home or self-care (01) ==
LOC: EDUNIT# 12:04 → ER 12:04 → ICU 14:33
PROVIDERS: ADMIT Family Medicine; ATTEND Family Medicine
DX: R07.9 Chest pain, unspecified (principal); I25.10 Atherosclerotic heart disease of native coronary artery without angina pectoris; I25.2 Old myocardial infarction; E78.00 Pure hypercholesterolemia, unspecified; I10 Essential (primary) hypertension; G40.909 Epilepsy, unspecified, not intractable, without status epilepticus; R91.8 Other nonspecific abnormal finding of lung field; E11.9 Type 2 diabetes mellitus without complications; F41.9 Anxiety disorder, unspecified; F31.9 Bipolar disorder, unspecified; F43.10 Post-traumatic stress disorder, unspecified; F17.210 Nicotine dependence, cigarettes, uncomplicated; Z79.4 Long term (current) use of insulin; Z79.82 Long term (current) use of aspirin; Z79.899 Other long term (current) drug therapy; Z95.5 Presence of coronary angioplasty implant and graft; Z86.19 Personal history of other infectious and parasitic diseases; Z91.19 Patient's noncompliance with other medical treatment and regimen
CPT/HCPCS: 36415; 71045; 80053; 80061; 82962; 83735; 83874; 83880; 84484; 85025; 85379; 85610; 85730; 93005; 93041

== ENCOUNTER 2018-07-12 10:51 | Emergency (ER) | payer BC, MEDICAID ==
[~2018-07-12] VITALS: Ht 166.4 cm; Wt 104.3 kg
[~2018-07-12 10:51] MED LIST changes: +ASPI-983 PO; +ATOR20TA66 PO; +BUPR150T14 PO; +CLOP75TA28 PO; +DOLU50TA PO; +EMTR1TAB13 PO; +HYDR-3812 PO; +INSU100V16 SQ; +LISI-556 PO; +RT-ALBUINH IH; +SULF-222 PO
--- OUTSIDE RECORDS SUMMARY | 2018-07-12 10:58 | XMS REPORT | Clinical Summary ---
Author Author [facility] Organization [facility] Address Unknown Phone Unavailable Care Team Providers Care Director Of Rehabilitation And Wellness Name Role Phone AlvarezBenja reed QUALITY IMPROVEMENT ANALYST Unavailable Yesi Escudero NP Unavailable Katharina Yarbrough RN Unavailable Unavailable Mian Barraza RN Unavailable Unavailable Milly Sy RN Unavailable Unavailable Self, Referral PCP Unavailable Source Comments Some departments are not documenting in the electronic medical record. If you do not see the information that you expected, contact Release of Information in the Health Information Management department at [phone] for further assistance in locating additional records.[facility] Allergies Comments Active Allergy Reactions Severity [...] on file. For more information, please contact: [facility] [address] [place] [address]
--- OUTSIDE RECORDS SUMMARY | 2018-07-12 11:00 | XMS REPORT | Continuity of Care Document ---
Author Author [facility] Organization [facility] Address Unknown Phone Unavailable Allergies Active Description Code Type Severity Reaction Onset Reported/Identified Relationship to Patient Clinical Status Yes hydromorphone [id number] Drug Allergy Unknown N/A 11/05/2008 Yes air casts air casts Unknown N/A 06/26/2013 Medications There is no data. Problems Date Dx Coded Attending Type Code Diagnosis Diagnosed By 06/26/2013 TALI GOLDSMITH APRN Ot 845.00 SPRAIN OF ANKLE NOS 06/26/2013 TALI GOLDSMITH APRN Ot 959.7 LOWER LEG INJURY NOS 06/26/2013 ATLI GOLDSMITH APRN Ot E000.8 OTHER EXTERNAL CAUSE STATUS 06/26/2013 TALI GOLDSMITH APRN Ot E849.6 ACCIDENT IN PUBLIC BLDG 06/26/2013 TALI GOLDSMITH APRN Ot E885.9 FALL FROM SLIPPING, TRIPPING, OR STUMBLI Procedures There is no data. Results There is no data. Encounters ACCT No. Visit Date/Time Discharge Status Pt. Type Provider Facility Loc./Unit Complaint [id number] 10/04/2016 15:30:00 10/04/2016 23:59:59 CLS Preadmit MARE BAILEY APRN [facility] RT J45.909 [id number] 06/26/2013 14:58:00 06/26/2013 16:27:00 DIS Emergency TALI GOLDSMITH APRN [facility] ER FALL/RIGHT ANKLE PAIN
[2018-07-12] MEDS ORDERED: LIDOCAINE 1% INJ 20 ML 20 ML VIAL ONE (11:23)
[2018-07-12] MEDS ORDERED: morphine INJ 10 MG/ML 1ML (SYR OR VIAL) IJ ONE (11:30)
[2018-07-12] MEDS ORDERED: LIDOCAINE 2% 20 ML (XYLOCAINE) VIAL INJ ONE (11:30)
--- NOTE | 2018-07-12 11:40 | ED Integumentary General ---
General Chief Complaint: Skin/Wound Problems Stated Complaint: BUTTOCK ABSCESS Nursing Triage Note: Ambulatory to rm 4. Pt c/o abscess in L groin/vaginal area. Pt reports noticing yesterday. Pt reports abscess feels "full" and is painful. History of Present Illness Date Seen by Provider: Jul 12, 2018 Time Seen by Provider: 11:00 Initial Comments The patient is a pleasant 42-year-old female who presents for an evaluation of an abscess to the left groin region. She states that she has had abscesses in this region previously. She reports that she has diabetes and is HIV positive. She says that when her blood sugar gets out of control somewhat it causes abscesses. She denies any other complaints at this time. Allergies and Home Medications Allergies Coded Allergies: hydromorphone (Verified Allergy, Unknown, b/p and oxygen level drop, ) tramadol (Verified Allergy, Unknown, ANAPHYLAXIS, 08/11/16) Uncoded Allergies: air casts (Allergy, Unknown, 11/28/17) Home Medications Albuterol Sulfate 1 Puff Puff, 2 PUFF IH Q4H PRN for SHORTNESS OF BREATH, ( Reported) 1 PUFF = 90 MCG Aspirin 81 Mg Tablet.dr, 81 MG PO HS, (Reported) Atorvastatin Calcium 20 Mg Tablet, 20 MG PO DAILY Prescribed by: JERSEY HAQUE on 06/28/18 1223 Bupropion HCl 150 Mg Tablet.er, 300 MG PO HS, (Reported) TAKES 2 (150MG) TABLETS Clopidogrel Bisulfate 75 Mg Tablet, 75 MG PO HS, (Reported) Dolutegravir Sodium 50 Mg Tablet, 50 MG PO HS, (Reported) Emtricitabine/Tenofov Alafenam 1 Each Tablet, 1 TAB PO HS, (Reported) Hydrocodone/Acetaminophen 1 Each Tablet, 1 TAB PO Q6H PRN for PAIN-MODERATE, ( Reported) LAST FILLED #20 01-07-18 Insulin Aspart 100 Unit/1 Ml Susp, 55 UNIT SQ 1200, (Reported) WITH LUNCH Insuln Asp Prt/Insulin Aspart 300 Units/3 Ml Solution, 50 UNITS SQ 0800,1800, ( Reported) WITH BREAKFAST AND SUPPER Lisinopril 5 Mg Tablet, 2.5 MG PO DAILY@0900 Prescribed by: JERSEY HAQUE on 06/28/18 1223 Patient Home Medication List Home Medication List Reviewed: Yes Review of Systems Review of Systems Constitutional: no symptoms reported EENTM: no symptoms reported Respiratory: no symptoms reported Cardiovascular: no symptoms reported Gastrointestinal: no symptoms reported Musculoskeletal: no symptoms reported Skin: other (left groin abscess) Psychiatric/Neurological: No Symptoms Reported Endocrine: No Symptoms Reported Hematologic/Lymphatic: No Symptoms Reported All Other Systems Reviewed Negative Unless Noted: Yes Past Bzcfzux-Pdfzvn-Jeeuwp Hx Past Med/Social Hx: Reviewed Nursing Past Med/Soc Hx Patient Social History Alcohol Use: Denies Use Recreational Drug Use: No (denies at this time) Drug of Choice: MARIJUANA, CRACK, METH Smoking Status: Current Everyday Smoker Type Used: Cigarettes 2nd Hand Smoke Exposure: Yes Recent Foreign Travel: No Contact w/Someone Who Travel: No Recent Infectious Disease Expo: No Recent Hopitalizations: No Physical Abuse: No Sexual Abuse: No Immunizations Up To Date Date of Pneumonia Vaccine: Feb 18, 2013 Date of Influenza Vaccine: Mar 06, 2018 Seasonal Allergies Seasonal Allergies: No Past Medical History Surgeries: Yes (Left eye removed, ) Gallbladder, Tubal Ligation Respiratory: Yes Asthma, COPD Cardiac: Yes (STENT PLACE IN NOVEMBER) Coronary Artery Disease, Heart Attack, High Cholesterol, Hypertension Neurological: Yes (psuedoseizure when really stressed out) Seizure Disorder 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 Disorders: Yes HIV/AIDS: Yes Gastrointestinal: Yes (n/v, blood stools, hx of hep C-took treatment) Musculoskeletal: Yes (right shoulder pinched nerve) Arthritis Endocrine: Yes Diabetes, Non-Insulin dep Eye Injury Cancer: No Psychosocial: Yes Anxiety, PTSD, Bipolar, Depression Integumentary: No Blood Disorders: Yes (HIV) Family Medical History Cardiovascular disease 19 FATHER 19 MOTHER Diabetes mellitus 19 FATHER FH: lung disease 19 MOTHER Heart Disease, Diabetes, Hypertension Physical Exam Vital Signs Vital Signs - First Documented 07/12/18 11:00 Temp 97.5 Pulse 75 Resp 17 B/P (MAP) 154/98 (116) Pulse Ox 98 O2 Delivery Room Air Capillary Refill : Less Than 3 Seconds General Appearance: WD/WN, no apparent distress HEENT: PERRL/EOMI Cardiovascular: normal peripheral pulses, regular rate, rhythm, no JVD Respiratory: chest non-tender, lungs clear, normal breath sounds Gastrointestinal: normal bowel sounds, non tender, soft Skin: other (there is a fluctuant abscess just lateral to the left labia majora with mild surrounding skin erythema, no open wound or drainage, approximately 2 x 2 centimeters) Skin Problem Character: abscess, erythema Procedures/Interventions I&D : Blade Size: 11 I & D Procedure: betadine prep Packing/Drain: Idoform 1/2 Progress The left groin abscess was infiltrated with 1% lidocaine after cleaning with Betadine. An 11 blade was used to make a linear incision in the abscess was deloculated with forceps. 1/2 inch iodoform gauze was then placed a wick. The patient tolerated the procedure well, there were no Medications. Progress/Results/Core Measures Results/Orders My Orders Orders - TRINITY MERAZ DO Lidocaine 2% Injection 20 Ml (Xylocaine (07/12/18 11:30) Morphine Injection (Morphine Injection (07/12/18 11:30) Lidocaine 1% Inj 20 Ml (Xylocaine 1% Inj (07/12/18 11:23) Medications Given in ED Current Medications Medications Dose Ordered Sig/Randy Route Start Time Stop Time Status Last Admin Dose Admin Morphine Sulfate 5 mg ONCE ONCE IJ 07/12/18 11:30 07/12/18 11:31 DC 07/12/18 11:33 5 MG Vital Signs/I&O 07/12/18 11:00 Temp 97.5 Pulse 75 Resp 17 B/P (MAP) 154/98 (116) Pulse Ox 98 O2 Delivery Room Air Blood Pressure Mean: 116 Departure Impression Primary Impression: Abscess of groin, left Additional Impression: Cellulitis of groin, left Disposition: 01 HOME, SELF-CARE Condition: Stable Departure-Patient Inst. Decision time for Depature: 11:57 Referrals: CHUCKIE MARIE DO (PCP) Primary Care Physician FRANDY DEUTSCH (Family) Primary Care Physician Patient Instructions: Abscess Incision and Drainage (DC), Cellulitis (Skin Infection), Child (DC) Add. Discharge Instructions: Prescribed medications as instructed. Follow-up with her doctor in the next 2-3 days and have the packing removed. Return to ER for new or worsening symptoms. Scripts Clindamycin HCl (Clindamycin HCl) 300 Mg Capsule 300 MG PO Q6H for 7 Days, #28 CAP Prov: TRINITY MERAZ DO 07/12/18 Hydrocodone/Acetaminophen ([place] 7.5-325 Tablet) 1 Each Tablet 1 TAB PO Q4H for PAIN-MODERATE MDD 6, #15 TAB Prov: TRINITY MERAZ DO 07/12/18 TRINITY MERAZ DO Jul 12, 2018 11:40
--- NOTE | 2018-07-12 11:45 | NUR ---
Assisted MD with I&D in genital area.
[2018-07-12] MEDS ORDERED: HYDR-4227 PO (11:58)
[2018-07-12] MEDS ORDERED: CLIN300C11 PO (11:58)
[2018-07-12 12:05] VITALS: BP 156/99
== END 2018-07-12 12:05 | disposition home or self-care (01) ==
LOC: EDUNIT# 10:51 → ER FS 10:55
DX: L02.214 Cutaneous abscess of groin (principal); L03.314 Cellulitis of groin; E11.9 Type 2 diabetes mellitus without complications; F12.10 Cannabis abuse, uncomplicated; J44.9 Chronic obstructive pulmonary disease, unspecified; I25.10 Atherosclerotic heart disease of native coronary artery without angina pectoris; I25.2 Old myocardial infarction; E78.00 Pure hypercholesterolemia, unspecified; I10 Essential (primary) hypertension; G40.909 Epilepsy, unspecified, not intractable, without status epilepticus; F41.9 Anxiety disorder, unspecified; F43.10 Post-traumatic stress disorder, unspecified; F31.9 Bipolar disorder, unspecified; F15.10 Other stimulant abuse, uncomplicated; F17.210 Nicotine dependence, cigarettes, uncomplicated; Z98.51 Tubal ligation status; Z21 Asymptomatic human immunodeficiency virus [HIV] infection status; Z88.6 Allergy status to analgesic agent; Z82.49 Family history of ischemic heart disease and other diseases of the circulatory system; Z88.5 Allergy status to narcotic agent; Z79.51 Long term (current) use of inhaled steroids; Z79.82 Long term (current) use of aspirin; Z79.02 Long term (current) use of antithrombotics/antiplatelets; Z79.4 Long term (current) use of insulin
CPT/HCPCS: 56405; 96372

== ENCOUNTER → 2018-08-13 | Outpatient (CLI) | payer BC, MEDICAID ==
[~2018-08-13] MED LIST changes: +AMOX-358 PO; +ARIP10TA17; +BUPR150T14; +CLIN300C11; +CLIN300C11 PO; +CLOP75TA28; +DOLU50TA; +EMTR1TAB13; +ESTR2TAB; +FURO40TA4; +HUM100VI15; +HYDR-3816; +HYDR-4226 PO; +HYDR-4227 PO; +INSU100V16; +LISI-556; +LYRICA; +METF500T8; +METO-333; +PREG75CA
--- NOTE | 2018-08-20 13:19 | Diagnostic Imaging Report ---
INDICATION: Right lung nodule. TECHNIQUE: Serum blood glucose level at the time of injection is 144 mg/dL. The patient was injected with 11.3 mCi F-18 FDG intravenously in the right antecubital location and PET imaging was performed from the top of skull to mid thighs. Noncontrast CT was also performed for attenuation correction and anatomic correlation. COMPARISON: Correlation is made with prior CT chest from 07/19/2018. No prior PET studies are available for comparison. FINDINGS: There is symmetric activity throughout the brain. Soft tissues of the neck are unremarkable. No mediastinal or hilar hypermetabolism is seen. Pulmonary parenchyma is unremarkable. Specifically, the nodule identified adjacent to the major fissure in the right upper lobe on recent CT is without evidence of FDG uptake and most likely represents a benign etiology. Physiologic activity within the GI and tracts is noted. IMPRESSION: Unremarkable PET/CT scan. Specifically, no abnormal hypermetabolism within the right upper lobe nodule noted on a recent CT is identified. This is suggestive of a benign etiology. Followup chest CT in five to six months could be performed to assure continued stability. Dictated by: Dictated on workstation # [id number]
== END ==
LOC: RAD 08:53
PROVIDERS: ATTEND Nurse Practitioner Family
DX: J45.909 Unspecified asthma, uncomplicated (principal); R91.1 Solitary pulmonary nodule; Z72.0 Tobacco use

== ENCOUNTER 2018-08-16 17:24 | Emergency (ER) | payer BC, MEDICAID ==
[~2018-08-16] VITALS: Ht 165.1 cm; Wt 102.1 kg
[~2018-08-16 17:24] MED LIST changes: -AMOX-358 PO; -HYDR-4226 PO
[2018-08-16] MEDS ORDERED: HYDROcodone/APAP 5 MG/325 MG (LORTAB) TAB PO STA (18:49)
[2018-08-16] MEDS ORDERED: AUGMENTIN 875 MG TAB (AMOXICILLIN/CLAVULANATE) PO STA (18:49)
--- NOTE | 2018-08-16 18:57 | ED EENT ---
History of Present Illness General Chief Complaint: Ear Problems Stated Complaint: EAR PIERCING PAIN Nursing Triage Note: PT CALLED EMS FOR BILATERAL EARACHE THAT STARTED LAST NIGHT History of Present Illness Date Seen by Provider: Aug 16, 2018 Time Seen by Provider: 18:40 This is a 43-year-old female with a history of HIV on HAART, diabetes, hypertension, here for bilateral otalgia and sore throat. She says that since yesterday she started with a right-sided earache, then started to develop a sore throat and now has a left-sided earache as well. She feels like she can hear out of both sides but that it is "clogged". No fever or chills. She did notice that some blood came out of the right ear after she put some eardrops then put a piece of cotton in the ear and then removed it. No headache or neck pain. She states that her viral load is undetectable and she is not sure of her CD4 count. Allergies and Home Medications Allergies Coded Allergies: hydromorphone (Verified Allergy, Unknown, b/p and oxygen level drop, ) tramadol (Verified Allergy, Unknown, ANAPHYLAXIS, 08/11/16) Uncoded Allergies: air casts (Allergy, Unknown, 11/28/17) Home Medications Albuterol Sulfate 1 Puff Puff, 2 PUFF IH Q4H PRN for SHORTNESS OF BREATH, ( Reported) 1 PUFF = 90 MCG Aspirin 81 Mg Tablet.dr, 81 MG PO HS, (Reported) Atorvastatin Calcium 20 Mg Tablet, 20 MG PO DAILY Prescribed by: JERSEY HAQUE on 06/28/18 1223 Bupropion HCl 150 Mg Tablet.er, 300 MG PO HS, (Reported) TAKES 2 (150MG) TABLETS Clindamycin HCl 300 Mg Capsule, 300 MG PO Q6H Prescribed by: TRINITY BECERRA on 07/12/18 1158 Clopidogrel Bisulfate 75 Mg Tablet, 75 MG PO HS, (Reported) Dolutegravir Sodium 50 Mg Tablet, 50 MG PO HS, (Reported) Emtricitabine/Tenofov Alafenam 1 Each Tablet, 1 TAB PO HS, (Reported) Hydrocodone/Acetaminophen 1 Each Tablet, 1 TAB PO Q6H PRN for PAIN-MODERATE, ( Reported) LAST FILLED #20 01-07-18 Hydrocodone/Acetaminophen 1 Each Tablet, 1 TAB PO Q4H Prescribed by: TRINITY BECERRA on 07/12/18 1158 Insulin Aspart 100 Unit/1 Ml Susp, 55 UNIT SQ 1200, (Reported) WITH LUNCH Insuln Asp Prt/Insulin Aspart 300 Units/3 Ml Solution, 50 UNITS SQ 0800,1800, ( Reported) WITH BREAKFAST AND SUPPER Lisinopril 5 Mg Tablet, 2.5 MG PO DAILY@0900 Prescribed by: JERSEY HAQUE on 06/28/18 1223 Patient Home Medication List Home Medication List Reviewed: Yes Review of Systems Review of Systems Constitutional: no symptoms reported Eyes: No Symptoms Reported Ears: See HPI Nose: no symptoms reported Mouth: no symptoms reported Throat: see HPI Respiratory: no symptoms reported Cardiovascular: no symptoms reported Gastrointestinal: no symptoms reported Musculoskeletal: no symptoms reported Skin: no symptoms reported Neurological: No Symptoms Reported Hematologic/Lymphatic: No Symptoms Reported Immunological/Allergic: no symptoms reported Past Dwwtuxu-Ukbcof-Ngnrbe Hx Patient Social History Alcohol Use: Denies Use Recreational Drug Use: No Drug of Choice: Methamphetamines Type Used: Cigarettes 2nd Hand Smoke Exposure: No Recent Foreign Travel: No Contact w/Someone Who Travel: No Recent Infectious Disease Expo: No Recent Hopitalizations: No Physical Abuse: No Sexual Abuse: No Mistreated: No Fear: No Immunizations Up To Date Date of Pneumonia Vaccine: Feb 18, 2013 Date of Influenza Vaccine: Mar 06, 2018 Seasonal Allergies Seasonal Allergies: No Past Medical History Surgeries: Yes (April 2018- [place] with stent placement) Coronary Stent Respiratory: No Asthma, COPD Cardiac: Yes (SD April 2018) Heart Attack Neurological: Yes (psuedoseizure when really stressed out) Seizure Disorder 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 Disorders: Yes Sexually Transmitted Disease: No HIV/AIDS: Yes Genitourinary: No Gastrointestinal: No Musculoskeletal: Yes (patient reports herniated, bulging cervical discs) Arthritis Endocrine: Yes Diabetes, Insulin dep HEENT: No Eye Injury Cancer: No Psychosocial: Yes Anxiety, Depression Integumentary: No Blood Disorders: Yes (Hep C, HIV) Adverse Reaction/Blood Tranf: No Family Medical History Cardiovascular disease 19 FATHER 19 MOTHER Diabetes mellitus 19 FATHER FH: lung disease 19 MOTHER Heart Disease, Diabetes, Hypertension Physical Exam Vital Signs Vital Signs - First Documented 08/16/18 17:39 Temp 98.7 Pulse 92 Resp 18 B/P (MAP) 142/83 (102) Pulse Ox 97 O2 Delivery Room Air Height, Weight, BMI Height: 5'5.00" Weight: 225lbs. 0.0oz. 102.055840tj; 36.5 BMI Method:Stated General Appearance: no apparent distress (mild visible discomfort) Ears: bilateral ear other (there is right-sided hemotympanum and erythema, the left TM is erythematous, opacified, bulging. The external auditory meati bilaterally are normal in appearance although there is some discomfort on insertion of the speculum. The mastoids bilaterally are normal in appearance and are nontender.) Mouth/Throat: other (pharynx is moderately erythematous with small amount of scattered exudate) Neck: full range of motion, supple Cardiovascular: normal peripheral pulses, regular rate, rhythm Respiratory: lungs clear Gastrointestinal: non tender, soft Neurologic/Psychiatric: alert, oriented x 3 Skin: warm/dry Progress/Results/Core Measures Results/Orders My Orders Orders - NATE MULLER DO Amoxicillin/Clavulanate Tablet (Augmenti (08/16/18 18:49) Hydrocodone/Apap 5/325 Tablet (Lortab 5 (08/16/18 18:49) Vital Signs/I&O 08/16/18 17:39 Temp 98.7 Pulse 92 Resp 18 B/P (MAP) 142/83 (102) Pulse Ox 97 O2 Delivery Room Air Blood Pressure Mean: 102 Progress Progress Note : Progress Note I will place patient on empiric Augmentin for otitis media and exudative pharyngitis. She does have a primary care physician and states that she will be able to follow-up on Sunday for a repeat evaluation. At this time she is not acutely toxic appearing, she is maintaining her airway, she appears stable for outpatient follow-up. She feels comfortable going home. Departure Impression Primary Impression: Otitis media Qualified Codes: H66.013 - Acute suppurative otitis media with spontaneous rupture of ear drum, bilateral Additional Impression: Exudative pharyngitis Disposition: HOME, SELF-CARE Condition: Stable Departure-Patient Inst. Referrals: CHUCKIE MARIE DO (PCP) Primary Care Physician FRANDY DEUTSCH (Family) Primary Care Physician Patient Instructions: Ear Infections (Otitis Media) (DC) Scripts Hydrocodone/Acetaminophen ([place] 5-325 Tablet) 1 Each Tablet 1 TAB PO Q6H PRN for pain MDD 10 TABS for 3 Days, #12 TAB Prov: NATE MULLER DO 08/16/18 Amoxicillin/Potassium Clav (Augmentin 875-125 Tablet) 1 Each Tablet 1 EACH PO BID for 10 Days, #20 TAB 0 Refills Prov: NATE MULLER DO 08/16/18 NATE MULLER DO Aug 16, 2018 18:57
[2018-08-16] MEDS ORDERED: AMOX-358 PO (18:59)
[2018-08-16] MEDS ORDERED: HYDR-4226 PO (18:59)
[2018-08-16 19:10] VITALS: BP 162/72
== END 2018-08-16 19:10 | disposition home or self-care (01) ==
LOC: EDUNIT# 17:24 → ER FS 17:26
DX: H66.93 Otitis media, unspecified, bilateral (principal); J06.9 Acute upper respiratory infection, unspecified; E11.9 Type 2 diabetes mellitus without complications; I10 Essential (primary) hypertension; F15.10 Other stimulant abuse, uncomplicated; I25.2 Old myocardial infarction; F41.9 Anxiety disorder, unspecified; F32.9 Major depressive disorder, single episode, unspecified; B19.20 Unspecified viral hepatitis C without hepatic coma; J44.9 Chronic obstructive pulmonary disease, unspecified; G40.909 Epilepsy, unspecified, not intractable, without status epilepticus; Z95.5 Presence of coronary angioplasty implant and graft; Z21 Asymptomatic human immunodeficiency virus [HIV] infection status; Z88.5 Allergy status to narcotic agent; Z82.49 Family history of ischemic heart disease and other diseases of the circulatory system; Z88.6 Allergy status to analgesic agent; Z79.82 Long term (current) use of aspirin; Z79.02 Long term (current) use of antithrombotics/antiplatelets; Z79.4 Long term (current) use of insulin
CPT/HCPCS: 99283

== ENCOUNTER 2018-09-02 18:12 | Emergency (ER) | payer BC, MEDICAID ==
[~2018-09-02] VITALS: Ht 165.1 cm; Wt 99.8 kg
[~2018-09-02 18:12] MED LIST changes: +AMOX-358 PO; +HYDR-4226 PO
--- NOTE | 2018-09-02 18:14 | NUR ---
BROUGHT TO ED 05 TO TRIAGE, 2 DAY HX OF CP THAT WORSENED MORE TODAY RADIATING TO LEFT SHOULDER. PAIN IS PRESSURE POSTERIOR LEFT BREAST IN THE BACK REGION. PT HAS A CARDIAC HX AND HAS [address] KELLEY WAS NOTIFIED.
[2018-09-02] MEDS ORDERED: morphine INJ 10 MG/ML 1ML (SYR OR VIAL) IV STA (18:31)
--- NOTE | 2018-09-02 18:38 | ED Chest Pain ---
General Stated Complaint: CHEST PAIN Source: patient, family (mom) Exam Limitations: no limitations History of Present Illness Date Seen by Provider: Sep 02, 2018 Time Seen by Provider: 18:17 Initial Comments Patient presents for 2 days mild left shoulder and chest pain that 2 hours ago started getting worse and is now a 9/10 radiating down her left arm. She notes the pain to be similar to the pain she felt when she had an SC a few years ago. She took her daily 81mg ASA thia AM and Plavix as well as coreg and lisinopril. Her cards is Dr Enriquez and PCP is Drew at [facility]. She took a hydrocodone for her back and it took the edge off the pain. She doesn't take NG because it caused her BP to bottom out in the past. She says she doesn't have high BP after stopping Methamphetamines in the past after her SC. She is quitting smoking, down to 1/2 ppd. Denies drinking alcohol but uses THC. Mild nausea without emesis. Sweats for the past couple days but no fever. No Cough or SOA. She has a hx of wildly uncontrolled DM II with BG ranging from 400-800 but last week she had a insulin pump installed and this AM her BG was 118. No hypoglycemia. No hypothyroidism. Takes a statin. No Hc CHF, orthopnea, edema. No recent periods of immobilization or personal/familial history of clots. Hx HCV and HIV on HAART. Allergies and Home Medications Allergies Coded Allergies: hydromorphone (Verified Allergy, Unknown, b/p and oxygen level drop, ) tramadol (Verified Allergy, Unknown, ANAPHYLAXIS, 08/11/16) Uncoded Allergies: air casts (Allergy, Unknown, 11/28/17) Home Medications Albuterol Sulfate 1 Puff Puff, 2 PUFF IH Q4H PRN for SHORTNESS OF BREATH, ( Reported) 1 PUFF = 90 MCG Amoxicillin/Potassium Clav 1 Each Tablet, 1 EACH PO BID Prescribed by: NATE MULLER on 08/16/18 1859 Aspirin 81 Mg Tablet.dr, 81 MG PO HS, (Reported) Atorvastatin Calcium 20 Mg Tablet, 20 MG PO DAILY Prescribed by: JERSEY HAQUE on 06/28/18 1223 Bupropion HCl 150 Mg Tablet.er, 300 MG PO HS, (Reported) TAKES 2 (150MG) TABLETS Clindamycin HCl 300 Mg Capsule, 300 MG PO Q6H Prescribed by: TRINITY BECERRA on 07/12/18 1158 Clopidogrel Bisulfate 75 Mg Tablet, 75 MG PO HS, (Reported) Dolutegravir Sodium 50 Mg Tablet, 50 MG PO HS, (Reported) Emtricitabine/Tenofov Alafenam 1 Each Tablet, 1 TAB PO HS, (Reported) Hydrocodone/Acetaminophen 1 Each Tablet, 1 TAB PO Q6H PRN for PAIN-MODERATE, ( Reported) LAST FILLED #20 -- Hydrocodone/Acetaminophen 1 Each Tablet, 1 TAB PO Q4H Prescribed by: TRINITY BECERRA on 07/12/18 1158 Hydrocodone/Acetaminophen 1 Each Tablet, 1 TAB PO Q6H PRN for pain Prescribed by: NATE MULLER on 08/16/18 1859 Insulin Aspart 100 Unit/1 Ml Susp, 55 UNIT SQ 1200, (Reported) WITH LUNCH Insuln Asp Prt/Insulin Aspart 300 Units/3 Ml Solution, 50 UNITS SQ 0800,1800, ( Reported) WITH BREAKFAST AND SUPPER Lisinopril 5 Mg Tablet, 2.5 MG PO DAILY@0900 Prescribed by: JERSEY HAQUE on 06/28/18 1223 Patient Home Medication List Home Medication List Reviewed: Yes Review of Systems Review of Systems Constitutional: No chills; diaphoresis; No fever EENTM: No Blurred Vision, No Double Vision Respiratory: Denies Cough, Denies Shortness of Air Cardiovascular: See HPI, Chest Pain; Denies Edema, Denies Lightheadedness, Denies Palpitations, Denies Syncope Gastrointestinal: Denies Abdomen Distended, Denies Abdominal Pain, Denies Constipated, Denies Diarrhea; Nausea; Denies Poor Fluid Intake, Denies Vomiting Genitourinary: Denies Burning, Denies Discharge Musculoskeletal: No back pain, No joint pain Skin: No pruritus, No rash Past Tcofgha-Gsjabb-Azxqez Hx Patient Social History Alcohol Use: Denies Use Recreational Drug Use: Yes Drug of Choice: Methamphetamines Past, THC Present Smoking Status: Current Everyday Smoker Type Used: Cigarettes (1/2 ppd) 2nd Hand Smoke Exposure: No Recent Foreign Travel: No Contact w/Someone Who Travel: No Recent Hopitalizations: No Immunizations Up To Date Date of Pneumonia Vaccine: Feb 18, 2013 Date of Influenza Vaccine: Mar 06, 2018 Seasonal Allergies Seasonal Allergies: No Past Medical History Surgeries: Yes (April 2018- [place] with stent placement) Coronary Stent Respiratory: No Asthma, COPD Cardiac: Yes (SC April 2018) Heart Attack Neurological: Yes (psuedoseizure when really stressed out) Seizure Disorder 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 Disorders: Yes Sexually Transmitted Disease: No HIV/AIDS: Yes Genitourinary: No Gastrointestinal: No Musculoskeletal: Yes (patient reports herniated, bulging cervical discs) Arthritis Endocrine: Yes Diabetes, Insulin dep HEENT: No Eye Injury Cancer: No Psychosocial: Yes Anxiety, Depression Integumentary: No Blood Disorders: Yes (Hep C, HIV) Adverse Reaction/Blood Tranf: No Family Medical History Cardiovascular disease 19 FATHER 19 MOTHER Diabetes mellitus 19 FATHER FH: lung disease 19 MOTHER Heart Disease, Diabetes, Hypertension Physical Exam Vital Signs Vital Signs - First Documented 09/02/18 09/02/18 18:14 18:30 Temp 98.0 Pulse 67 Resp 15 B/P (MAP) 133/61 (85) Pulse Ox 98 O2 Delivery Room Air Capillary Refill : Height, Weight, BMI Height: 5'5.00" Weight: 225lbs. 0.0oz. 102.225506ex; 36.5 BMI Method:Stated General Appearance: No Apparent Distress (overweight), Anxious HEENT: PERRL/EOMI, Pharynx Normal, Moist Mucous Membranes, Other (Left Eye chronic blindness) Neck: Full Range of Motion, Normal Inspection, Non Tender, Supple Respiratory: Chest Non Tender, Lungs Clear, Normal Breath Sounds, No Accessory Muscle Use, No Respiratory Distress Cardiovascular: Regular Rate, Rhythm, No Edema, Normal Peripheral Pulses Gastrointestinal: Non Tender, Soft Extremity: Normal Capillary Refill, Normal Inspection, Non Tender, No Calf Tenderness, No Pedal Edema Neurologic/Psychiatric: Alert, Oriented x3 Progress/Results/Core Measures Results/Orders Lab Results Laboratory Tests Test 09/02/18 19:10 09/02/18 19:30 09/02/18 21:07 Range/Units White Blood Count 8.3 4.3-11.0 10^3/uL Red Blood Count 4.40 4.35-5.85 10^6/uL Hemoglobin 13.2 11.5-16.0 G/DL Hematocrit 40 35-52 % Mean Corpuscular Volume 91 80-99 FL Mean Corpuscular Hemoglobin 30 25-34 PG Mean Corpuscular Hemoglobin Concent 33 32-36 G/DL Red Cell Distribution Width 13.1 10.0-14.5 % Platelet Count 239 130-400 10^3/uL Mean Platelet Volume 11.5 H 7.4-10.4 FL Neutrophils (%) (Auto) 49 42-75 % Lymphocytes (%) (Auto) 40 12-44 % Monocytes (%) (Auto) 8 0-12 % Eosinophils (%) (Auto) 2 0-10 % Basophils (%) (Auto) 1 0-10 % Neutrophils # (Auto) 4.1 1.8-7.8 X 10^3 Lymphocytes # (Auto) 3.0 1.0-4.0 X 10^3 Monocytes # (Auto) 0.7 0.0-1.0 X 10^3 Eosinophils # (Auto) 0.2 0.0-0.3 10^3/uL Basophils # (Auto) 0.0 0.0-0.1 10^3/uL Prothrombin Time 12.5 12.2-14.7 SEC INR Comment 0.9 0.8-1.4 Activated Partial Thromboplast Time 25 24-35 SEC Sodium Level 136 135-145 MMOL/L Potassium Level 3.8 3.6-5.0 MMOL/L Chloride Level 95 L 98-107 MMOL/L Carbon Dioxide Level 25 21-32 MMOL/L Anion Gap 16 H 5-14 MMOL/L Blood Urea Nitrogen 12 7-18 MG/DL Creatinine 0.51 L 0.60-1.30 MG/DL Estimat Glomerular Filtration Rate > 60 BUN/Creatinine Ratio 24 Glucose Level 198 H 70-105 MG/DL Calcium Level 9.2 8.5-10.1 MG/DL Corrected Calcium 9.3 8.5-10.1 MG/DL Magnesium Level 1.7 L 1.8-2.4 MG/DL Total Bilirubin 0.3 0.1-1.0 MG/DL Aspartate Amino Transf (AST/SGOT) 17 5-34 U/L Alanine Aminotransferase (ALT/SGPT) 17 0-55 U/L Alkaline Phosphatase 63 40-136 U/L Myoglobin 21.0 10.0-92.0 NG/ML Troponin T 7 8 <=10 NG/L Total Protein 7.0 6.4-8.2 GM/DL Albumin 3.9 3.2-4.5 GM/DL Lipase 20 8-78 U/L Urine Color YELLOW Urine Clarity CLEAR Urine pH 7.0 5-9 Urine Specific Marquez 1.015 L 1.016-1.022 Urine Protein NEGATIVE NEGATIVE Urine Glucose (UA) TRACE H NEGATIVE Urine Ketones NEGATIVE NEGATIVE Urine Nitrite NEGATIVE NEGATIVE Urine Bilirubin NEGATIVE NEGATIVE Urine Urobilinogen 0.2 NORMAL MG/DL Urine Leukocyte Esterase NEGATIVE NEGATIVE Urine RBC (Auto) NEGATIVE NEGATIVE Urine RBC NONE /HPF Urine WBC NONE /HPF Urine Squamous Epithelial Cells >50 H /HPF Urine Crystals NONE /LPF Urine Bacteria NONE /HPF Urine Casts NONE /LPF Urine Mucus NEGATIVE /LPF Urine Culture Indicated NO Urine Opiates Screen POSITIVE H NEGATIVE Urine Oxycodone Screen NEGATIVE NEGATIVE Urine Methadone Screen NEGATIVE NEGATIVE Urine Propoxyphene Screen NEGATIVE NEGATIVE Urine Barbiturates Screen NEGATIVE NEGATIVE Ur Tricyclic Antidepressants Screen NEGATIVE NEGATIVE Urine Phencyclidine Screen NEGATIVE NEGATIVE Urine Amphetamines Screen NEGATIVE NEGATIVE Urine Methamphetamines Screen NEGATIVE NEGATIVE Urine Benzodiazepines Screen NEGATIVE NEGATIVE Urine Cocaine Screen NEGATIVE NEGATIVE Urine Cannabinoids Screen POSITIVE H NEGATIVE My Orders Orders - ALLIE,CHAPARRO J Ekg Tracing (09/02/18 18:14) Continuous Ekg Monitoring (09/02/18 18:14) Cbc With Automated Diff (09/02/18 18:31) Magnesium (09/02/18 18:31) Chest 1 View Ap/Pa Only (09/02/18 18:31) Comprehensive Metabolic Panel (09/02/18 18:31) Myoglobin Serum (09/02/18 18:31) Protime With Inr (09/02/18 18:31) Partial Thromboplastin Time (09/02/18 18:31) O2 (09/02/18 18:31) Lipid Panel (09/03/18 06:00) Aspirin Chewable Tablet (Baby Aspirin Ch (09/02/18 18:45) Morphine Injection (Morphine Injection (09/02/18 18:31) Ed Iv/Invasive Line Start (09/02/18 18:31) Lipase (09/02/18 18:31) Troponin T (09/02/18 18:31) Ondansetron Injection (Zofran Injectio (09/02/18 18:45) Drug Screen Stat (Urine) (09/02/18 18:52) Ua Culture If Indicated (09/02/18 18:52) Lidocaine 2% Viscous 15 Ml (Xylocaine Vi (09/02/18 19:45) Famotidine Tablet (Pepcid Tablet) (09/02/18 19:37) Antacid Suspension (Mylanta Suspension (09/02/18 19:45) Troponin T (09/02/18 20:29) Morphine Injection (Morphine Injection (09/02/18 20:29) Medications Given in ED Current Medications Medications Dose Ordered Sig/Randy Route Start Time Stop Time Status Last Admin Dose Admin Al Hydrox/Mg Hydrox/Simethicone 30 ml ONCE ONCE PO 09/02/18 19:45 09/02/18 19:46 DC 09/02/18 19:49 30 ML Aspirin 324 mg ONCE ONCE PO 09/02/18 18:45 09/02/18 18:46 DC 09/02/18 19:05 324 MG Lidocaine HCl 15 ml ONCE ONCE PO 09/02/18 19:45 09/02/18 19:46 DC 09/02/18 19:49 15 ML Ondansetron HCl 4 mg ONCE ONCE IVP 09/02/18 18:45 09/02/18 18:46 DC 09/02/18 19:06 4 MG Vital Signs/I&O 09/02/18 09/02/18 18:14 18:30 Temp 98.0 Pulse 67 Resp 15 B/P (MAP) 133/61 (85) Pulse Ox 98 O2 Delivery Room Air Room Air Progress Progress Note #1: Time: 18:41 Progress Note EKG unrevealing. Will withold NG as her BP is not high and she refuses for fear of hypotension. Morphine 4mg and zofran 4mg. CHest, lab, UA and UDS. ED ACS score 14pts. Low risk by the EDACS Score. If the patient also has: (1) EKG without new ischemic changes and (2) negative initial and 2-hour troponins, then this patient is safe for discharge to early outpatient follow-up investigation (or proceed to earlier inpatient testing). If EKG with ischemic changes or positive troponin, they are not low risk and require normal risk stratification. acute myocardial infarction in November 2017 and another stent placed in the same artery [place] [address] Enriquez. Was here 6 weeks ago with same story and had neg workup. Echo 04/2018: Mild concentric hypertrophy and wall thickness inc. EF 50-55% Progress Note #2: Time: 20:30 Progress Note The patient reports that the morphine did help dull the pain some but the GI cocktail helped also. She had an EGD several years ago by physician and [place] but she does not remember who he was or what the results were. Records indicate the patient had an ulcer prescribed an EGD in 2017 but there has not been any workup since then. We'll trial another 4 mg of morphine for her discomfort. Delta troponin at 2100. It's likely that if the troponin does not elevate she could go home and follow up outpatient with general surgery. White cells are not elevated so not suspicious of a perforation. Abdominal exam is still unremarkable. Lipase is negative. Initial ECG Impression Date: Sep 02, 2018 Initial ECG Impression Time: 18:17 Initial ECG Rate: 66 Initial ECG Rhythm: Normal Sinus Initial ECG Intervals: Normal Initial ECG Impression: Normal, Nonspecific Changes Initial ECG Comparisson: Unchanged Comment Unchanged appearance in the anterior leads from 07/19/18. No significant ST Elevation or depression. Diagnostic Imaging Diagonstic Imaging: Xray Plain Films/CT/US/NM/MRI: chest (1v) Comments [facility] [employer] [place], [place] NAME: LINDSEY DE LA [facility]RE [facility] REC#: [id number] PT STATUS: REG ER : 1975 PHYSICIAN: CHAPARRO KELLEY MD ADMIT DATE: 09/02/18/ER FS Draft Date of Exam:09/02/18 CHEST 1 VIEW AP/PA ONLY EXAMINATION: AP upright portable chest. INDICATION: Chest pain. COMPARISON: Multiple priors, most recent performed on 07/19/2018. FINDINGS: No significant change in circumscribed round nodule in the right midlung. The lungs are otherwise clear and the pulmonary vasculature is normal. No pneumothorax or large pleural effusion. The cardiomediastinal silhouette is unchanged. No acute osseous abnormalities identified. IMPRESSION: No acute chest disease. No significant change from prior. No appreciable change in right lung nodule. Followup of this finding is recommended, as previously reported. Dictated on workstation # [id number] Dict: 09/02/181907 Trans: 09/02/181911 AS6 [id number] Interpreted by: FRANDY RODRIGUEZ DO Electronically signed by: Reviewed: Reviewed by Me Departure Impression Primary Impression: Chest pain Qualified Codes: R07.9 - Chest pain, unspecified Additional Impression: PUD (peptic ulcer disease) Disposition: 01 HOME, SELF-CARE Condition: Stable Departure-Patient Inst. Decision time for Depature: 21:58 Referrals: CHUCKIE MARIE DO (PCP) Primary Care Physician FRANDY DEUTSCH (Family) Primary Care Physician PINA RODRIGUEZ M RIZWAN MD Patient Instructions: Chest Pain That Is Not Caused by the Heart (DC), Peptic Ulcers (DC) Add. Discharge Instructions: I do not think that your chest pain is caused by your heart however it would still be dave giving her history of heart disease to follow-up with Dr. Enriquez outpatient by calling his office tomorrow morning and requesting an appointment in the next 1-2 days. I do think that your pain is possibly a referred pain from your peptic ulcer disease and you would be dave to start the medications I have prescribed and follow-up with Dr. Rodriguez in the next few weeks. 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 Continue to use baking soda, Tums, Rolaids etc. as necessary for breakthrough pain. Scripts Omeprazole (Omeprazole) 40 Mg Capsule. 40 MG PO DAILY for 30 Days, #30 CAP 0 Refills Prov: CHAPARRO KELLEY 09/02/18 Sucralfate (Carafate) 1 Gm Tablet 1 GM PO QIDACHS for 14 Days, #56 TAB 0 Refills Prov: CHAPARRO KELLEY 09/02/18 Copy Copies To 1: PINA RODRIGUEZ TITUS J Sep 02, 2018 18:38
--- NOTE | 2018-09-02 18:40 | NUR ---
ATTEMPTS PER JESICA RN FOR IV ACCESS UNSUCCESSFUL. THIS RN WILL ATTEMPT.
[2018-09-02] MEDS ORDERED: ASPIRIN 81 MG CHEW (CHILDREN'S ASA) PO ONE (18:45)
[2018-09-02] MEDS ORDERED: ONDANSETRON 4 MG/2 ML (SDV) Z0FRAN IVP ONE (18:45)
--- NOTE | 2018-09-02 19:00 | NUR ---
REPORT TO RICHIE GARRETT. PT HAS NO IV ACCESS AFTER NUMEROUS ATTEMPTS.
--- OUTSIDE RECORDS SUMMARY | 2018-09-02 19:06 | XMS REPORT | Clinical Summary ---
Author Author [facility] Organization [facility] Address Unknown Phone Unavailable Care Team Providers Care Show Jumping Instructor Name Role Phone AlvarezBenja reed MARINE ENGINEERING TEACHER Unavailable Yesi Escudero NP Unavailable Katharina Yarbrough RN Unavailable Unavailable Mian Barraza RN Unavailable Unavailable Milly Sy RN Unavailable Unavailable Self, Referral PCP Unavailable Source Comments Some departments are not documenting in the electronic medical record. If you do not see the information that you expected, contact Release of Information in the Health Information Management department at [phone] for further assistance in locating additional records.[facility] Allergies Comments Active Allergy Reactions Severity [...] 2006 BREAST CANCER SCREENING 2016 INFLUENZA VACCINE 12/19/2018 Results Not on filefrom Last 3 Months Advance Directives Patient has advance care planning documents on file. For more information, please contact: [address] [place] [address]
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
--- NOTE | 2018-09-02 19:13 | Diagnostic Imaging Report ---
EXAMINATION: AP upright portable chest. INDICATION: Chest pain. COMPARISON: Multiple priors, most recent performed on 07/19/2018. FINDINGS: No significant change in circumscribed round nodule in the right midlung. The lungs are otherwise clear and the pulmonary vasculature is normal. No pneumothorax or large pleural effusion. The cardiomediastinal silhouette is unchanged. No acute osseous abnormalities identified. IMPRESSION: No acute chest disease. No significant change from prior. No appreciable change in right lung nodule. Followup of this finding is recommended, as previously reported. Dictated by: Dictated on workstation # [id number]
[2018-09-02] MEDS ORDERED: FAMOTIDINE 20 MG (PEPCID) TABLET PO STA (19:37)
[2018-09-02] MEDS ORDERED: ANTACID SUSP 30 ML UDC (MYLANTA) PO ONE (19:45)
[2018-09-02] MEDS ORDERED: LIDOCAINE 2% VISCOUS 15 ML UDC PO ONE (19:45)
[2018-09-02 20:00] LABS: BASOPHILS % (AUTO) 1 % (0-10); EOSINOPHILS # (AUTO) 0.2 10^3/uL (0.0-0.3); EOSINOPHILS % (AUTO) 2 % (0-10); HEMATOCRIT 40 % (35-52); HEMOGLOBIN 13.2 G/DL (11.5-16.0); LYMPHOCYTES % (AUTO) 40 % (12-44); MEAN CORPUSCULAR HEMOGLOBIN 30 PG (25-34); MEAN CORPUSCULAR HGB CONC 33 G/DL (32-36); MEAN CORPUSCULAR VOLUME 91 FL (80-99); MEAN PLATELET VOLUME 11.5 FL (7.4-10.4); MONOCYTES # (AUTO) 0.7 X 10^3 (0.0-1.0); MONOCYTES % (AUTO) 8 % (0-12); NEUTROPHILS # (AUTO) 4.1 X 10^3 (1.8-7.8); NEUTROPHILS % (AUTO) 49 % (42-75); PLATELET COUNT 239 10^3/uL (130-400); RED CELL DISTRIBUTION WIDTH 13.1 % (10.0-14.5); WHITE BLOOD COUNT 8.3 10^3/uL (4.3-11.0)
[2018-09-02 20:07] LABS: INR 0.9 (0.8-1.4); PROTHROMBIN TIME PATIENT 12.5 SEC (12.2-14.7)
[2018-09-02 20:11] LABS: BILIRUBIN,TOTAL 0.3 MG/DL (0.1-1.0); BUN/CREATININE RATIO 24; CALCIUM 9.2 MG/DL (8.5-10.1); CARBON DIOXIDE 25 MMOL/L (21-32); CHLORIDE 95 MMOL/L (98-107); CREATININE SERUM 0.51 MG/DL (0.60-1.30); GFR ESTIMATED > 60; GLUCOSE 198 MG/DL (70-105); MAGNESIUM 1.7 MG/DL (1.8-2.4); POTASSIUM 3.8 MMOL/L (3.6-5.0); SODIUM 136 MMOL/L (135-145)
[2018-09-02 20:12] LABS: ALANINE AMINOTRANSFERASE 17 U/L (0-55); ALBUMIN 3.9 GM/DL (3.2-4.5); ALKALINE PHOSPHATASE 63 U/L (40-136); LIPASE 20 U/L (8-78)
[2018-09-02] MEDS ORDERED: morphine INJ 10 MG/ML 1ML (SYR OR VIAL) IVP STA (20:29)
[2018-09-02 20:33] LABS: AMPHETAMINE SCREEN, URINE NEGATIVE (NEGATIVE); BARBITURATE SCREEN URINE NEGATIVE (NEGATIVE); BENZODIAZEPINES SCREEN URINE NEGATIVE (NEGATIVE); CANNABINOID SCREEN, URINE POSITIVE (NEGATIVE); COCAINE SCREEN URINE NEGATIVE (NEGATIVE); METHADONE STAT NEGATIVE (NEGATIVE); METHAMPHETAMINE SCREEN URINE S NEGATIVE (NEGATIVE); OPIATE SCREEN URINE POSITIVE (NEGATIVE); OXYCODONE STAT NEGATIVE (NEGATIVE); PROPOXYPHENE STAT NEGATIVE (NEGATIVE); TRICYCLIC ANTIDEPRESSANTS SCRE NEGATIVE (NEGATIVE)
[2018-09-02 20:46] LABS: BILIRUBIN,URINE NEGATIVE (NEGATIVE); CLARITY,URINE CLEAR; COLOR,URINE YELLOW; GLUCOSE, URINE (UA) TRACE (NEGATIVE); KETONES,URINE NEGATIVE (NEGATIVE); LEUKOCYTE ESTERASE ,URINE NEGATIVE (NEGATIVE); NITRITE,URINE NEGATIVE (NEGATIVE); PROTEIN,URINE NEGATIVE (NEGATIVE); SQUAMOUS EPITHELIAL CELL,UR >50 /HPF; UROBILINOGEN,URINE 0.2 MG/DL (NORMAL)
[2018-09-02] MEDS ORDERED: OMEP40CA36 PO (22:01)
[2018-09-02] MEDS ORDERED: SUCR1TAB36 PO (22:01)
[2018-09-02 22:09] VITALS: BP 94/54
== END 2018-09-02 22:09 | disposition home or self-care (01) ==
LOC: EDUNIT# 18:12 → ER FS 18:14
DX: R07.9 Chest pain, unspecified (principal); K27.9 Peptic ulcer, site unspecified, unspecified as acute or chronic, without hemorrhage or perforation; I25.2 Old myocardial infarction; J44.9 Chronic obstructive pulmonary disease, unspecified; G40.909 Epilepsy, unspecified, not intractable, without status epilepticus; F41.9 Anxiety disorder, unspecified; F32.9 Major depressive disorder, single episode, unspecified; E11.9 Type 2 diabetes mellitus without complications; F15.10 Other stimulant abuse, uncomplicated; B19.20 Unspecified viral hepatitis C without hepatic coma; F17.210 Nicotine dependence, cigarettes, uncomplicated; F12.10 Cannabis abuse, uncomplicated; Z95.5 Presence of coronary angioplasty implant and graft; Z21 Asymptomatic human immunodeficiency virus [HIV] infection status; Z82.49 Family history of ischemic heart disease and other diseases of the circulatory system; Z79.4 Long term (current) use of insulin; Z88.5 Allergy status to narcotic agent; Z88.8 Allergy status to other drugs, medicaments and biological substances; Z79.82 Long term (current) use of aspirin; Z79.02 Long term (current) use of antithrombotics/antiplatelets
CPT/HCPCS: 36415; 71045; 80053; 80306; 81000; 83690; 83735; 83874; 84484; 85025; 85610; 85730; 93005; 96374; 96375; 96376

== ENCOUNTER 2018-09-16 10:31 | Inpatient (IN) | payer BC, MEDICAID ==
[~2018-09-16] VITALS: Ht 165.1 cm; Wt 107.1 kg
[~2018-09-16 10:31] MED LIST changes: -BUPR150T14; -DOLU50TA; -EMTR1TAB13; -ESTR2TAB; +ESTR2TAB PO; -FURO40TA4; +FURO40TA4 PO; -LISI-556; -METF500T8; +METF500T8 PO; -METO-333; +OMEP40CA36 PO; -PREG75CA; +PREG75CA PO; +SUCR1TAB36 PO
--- NOTE | 2018-09-16 10:31 | NUR ---
Pt to ED06 per [facility], see triage documented per Noam RN as this RN assesses pt. No IV access from EMS.
--- NOTE | 2018-09-16 10:47 | ED Abdominal Pain ---
General Chief Complaint: Abdominal/GI Problems Stated Complaint: ABD PAIN Source of Information: Patient, EMS, Old Records, RN Notes Reviewed Exam Limitations: No Limitations History of Present Illness Date Seen by Provider: Sep 16, 2018 Time Seen by Provider: 10:46 Allergies and Home Medications Allergies Coded Allergies: hydromorphone (Verified Allergy, Unknown, b/p and oxygen level drop, ) tramadol (Verified Allergy, Unknown, ANAPHYLAXIS, 08/11/16) Uncoded Allergies: air casts (Allergy, Unknown, 11/28/17) Home Medications Albuterol Sulfate 1 Puff Puff, 2 PUFF IH Q4H PRN for SHORTNESS OF BREATH, ( Reported) 1 PUFF = 90 MCG Amoxicillin/Potassium Clav 1 Each Tablet, 1 EACH PO BID Prescribed by: NATE MULLER on 08/16/181858 Aspirin 81 Mg Tablet.dr, 81 MG PO HS, (Reported) Atorvastatin Calcium 20 Mg Tablet, 20 MG PO DAILY Prescribed by: JERSEY HAQUE on 06/28/18 1223 Bupropion HCl 150 Mg Tablet.er, 300 MG PO HS, (Reported) TAKES 2 (150MG) TABLETS Clindamycin HCl 300 Mg Capsule, 300 MG PO Q6H Prescribed by: TRINITY BECERRA on 07/12/18 1158 Clopidogrel Bisulfate 75 Mg Tablet, 75 MG PO HS, (Reported) Dolutegravir Sodium 50 Mg Tablet, 50 MG PO HS, (Reported) Emtricitabine/Tenofov Alafenam 1 Each Tablet, 1 TAB PO HS, (Reported) Hydrocodone/Acetaminophen 1 Each Tablet, 1 TAB PO Q6H PRN for PAIN-MODERATE, ( Reported) LAST FILLED #20 01-07-18 Hydrocodone/Acetaminophen 1 Each Tablet, 1 TAB PO Q4H Prescribed by: TRINITY BECERRA on 07/12/18 1158 Hydrocodone/Acetaminophen 1 Each Tablet, 1 TAB PO Q6H PRN for pain Prescribed by: NATE MULLER on 08/16/181858 Insulin Aspart 100 Unit/1 Ml Susp, 55 UNIT SQ 1200, (Reported) WITH LUNCH Insuln Asp Prt/Insulin Aspart 300 Units/3 Ml Solution, 50 UNITS SQ 0800,1800, ( Reported) WITH BREAKFAST AND SUPPER Lisinopril 5 Mg Tablet, 2.5 MG PO DAILY@0900 Prescribed by: JERSEY HAQUE on 06/28/18 1223 Omeprazole 40 Mg Capsule., 40 MG PO DAILY Prescribed by: CHAPARRO KELLEY on 09/02/182200 Sucralfate 1 Gm Tablet, 1 GM PO QIDACHS Prescribed by: CHAPARRO KELLEY on 09/02/182200 Past Fcgehon-Abkdgl-Zhfchg Hx Patient Social History Drug of Choice: Methamphetamines Past, THC Present Type Used: Cigarettes 2nd Hand Smoke Exposure: No Recent Hopitalizations: No Immunizations Up To Date Date of Pneumonia Vaccine: Feb 18, 2013 Date of Influenza Vaccine: Mar 06, 2018 Seasonal Allergies Seasonal Allergies: No Past Medical History Surgeries: Yes (April 2018- [place] with stent placement) Coronary Stent Respiratory: No Asthma, COPD Cardiac: Yes ([place] April 2018) Heart Attack Neurological: Yes (psuedoseizure when really stressed out) Seizure Disorder 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 Disorders: Yes Sexually Transmitted Disease: No HIV/AIDS: Yes Genitourinary: No Gastrointestinal: No Musculoskeletal: Yes (patient reports herniated, bulging cervical discs) Arthritis Endocrine: Yes Diabetes, Insulin dep HEENT: No Eye Injury Cancer: No Psychosocial: Yes Anxiety, Depression Integumentary: No Blood Disorders: Yes (Hep C, HIV) Adverse Reaction/Blood Tranf: No Family Medical History Cardiovascular disease 19 FATHER 19 MOTHER Diabetes mellitus 19 FATHER FH: lung disease 19 MOTHER Heart Disease, Diabetes, Hypertension Physical Exam Vital Signs Capillary Refill : Height/Weight/BMI Height: 5'5.00" Weight: 220lbs. 0.0oz. 99.077029nx; 36.5 BMI Method:Stated Departure Departure-Patient Inst. Referrals: CHUCKIE MARIE DO (PCP) Primary Care Physician FRANDY DEUTSCH (Family) Primary Care Physician SABRINA FRANCO DO Sep 16, 2018 10:47
[2018-09-16 11:05] LABS: BILIRUBIN,URINE NEGATIVE (NEGATIVE); CLARITY,URINE CLEAR; COLOR,URINE YELLOW; GLUCOSE, URINE (UA) NEGATIVE (NEGATIVE); KETONES,URINE NEGATIVE (NEGATIVE); LEUKOCYTE ESTERASE ,URINE NEGATIVE (NEGATIVE); NITRITE,URINE NEGATIVE (NEGATIVE); PROTEIN,URINE NEGATIVE (NEGATIVE); UROBILINOGEN,URINE 0.2 MG/DL (NORMAL)
[2018-09-16] MEDS ORDERED: KETOROLAC 15 MG/ML VIAL IM STA (11:05)
[2018-09-16] MEDS ORDERED: ONDANSETRON 4 MG (ZOFRAN) ORAL DISSOLVE TAB PO STA (11:05)
[2018-09-16 11:17] LABS: HEMATOCRIT 43 % (35-52); HEMOGLOBIN 14.1 G/DL (11.5-16.0); MEAN CORPUSCULAR HEMOGLOBIN 30 PG (25-34); MEAN CORPUSCULAR HGB CONC 33 G/DL (32-36); MEAN CORPUSCULAR VOLUME 90 FL (80-99); PLATELET COUNT 252 10^3/uL (130-400); RED CELL DISTRIBUTION WIDTH 12.8 % (10.0-14.5); WHITE BLOOD COUNT 13.3 10^3/uL (4.3-11.0)
[2018-09-16 11:18] LABS: BASOPHILS # (AUTO) 0.1 10^3/uL (0.0-0.1); BASOPHILS % (AUTO) 0 % (0-10); EOSINOPHILS # (AUTO) 0.3 10^3/uL (0.0-0.3); EOSINOPHILS % (AUTO) 2 % (0-10); LYMPHOCYTES # (AUTO) 3.4 X 10^3 (1.0-4.0); LYMPHOCYTES % (AUTO) 26 % (12-44); MEAN PLATELET VOLUME 10.9 FL (7.4-10.4); MONOCYTES # (AUTO) 0.9 X 10^3 (0.0-1.0); MONOCYTES % (AUTO) 7 % (0-12); NEUTROPHILS # (AUTO) 8.6 X 10^3 (1.8-7.8); NEUTROPHILS % (AUTO) 65 % (42-75)
[2018-09-16 11:22] LABS: AMPHETAMINE SCREEN, URINE NEGATIVE (NEGATIVE); BENZODIAZEPINES SCREEN URINE NEGATIVE (NEGATIVE); CANNABINOID SCREEN, URINE POSITIVE (NEGATIVE); COCAINE SCREEN URINE NEGATIVE (NEGATIVE); METHAMPHETAMINE SCREEN URINE S NEGATIVE (NEGATIVE)
[2018-09-16 11:23] LABS: BARBITURATE SCREEN URINE NEGATIVE (NEGATIVE); METHADONE STAT NEGATIVE (NEGATIVE); OPIATE SCREEN URINE POSITIVE (NEGATIVE); OXYCODONE STAT NEGATIVE (NEGATIVE); PROPOXYPHENE STAT NEGATIVE (NEGATIVE); TRICYCLIC ANTIDEPRESSANTS SCRE NEGATIVE (NEGATIVE)
[2018-09-16] MEDS ORDERED: KETOROLAC 30 MG/ML VIAL ONE (11:28)
[2018-09-16 11:40] LABS: ALANINE AMINOTRANSFERASE 7 U/L (0-55); ALBUMIN 4.3 GM/DL (3.2-4.5); ALKALINE PHOSPHATASE 81 U/L (40-136); BILIRUBIN,TOTAL 0.7 MG/DL (0.1-1.0); BUN/CREATININE RATIO 10; CALCIUM 9.6 MG/DL (8.5-10.1); CARBON DIOXIDE 23 MMOL/L (21-32); CHLORIDE 96 MMOL/L (98-107); CREATININE SERUM 0.58 MG/DL (0.60-1.30); GFR ESTIMATED > 60; GLUCOSE 93 MG/DL (70-105); LIPASE 282 U/L (8-78); POTASSIUM 4.1 MMOL/L (3.6-5.0); SODIUM 140 MMOL/L (135-145); TOTAL PROTEIN 8.1 GM/DL (6.4-8.2)
[2018-09-16] MEDS ORDERED: KETOROLAC 15 MG/ML VIAL IVP ONE (11:45)
--- NOTE | 2018-09-16 12:03 | Diagnostic Imaging Report ---
PROCEDURE: CT abdomen and pelvis without contrast. TECHNIQUE: Multiple contiguous axial images were obtained through the abdomen and pelvis without the use of intravenous contrast. Auto Exposure Controls were utilized during the CT exam to meet ALARA standards for radiation dose reduction. INDICATION: Abdominal pain since yesterday. Right lower quadrant pain radiating to the entire abdomen. COMPARISON: PET/CT from 08/20/2018. FINDINGS: The lung bases are clear. The heart is normal in size. There is no pericardial effusion. The liver demonstrates no focal lesions. Cholecystectomy clips are noted. The spleen appears normal. There is edema about the head of the pancreas. The adrenal glands are normal. No renal calculi or hydronephrosis is seen. The bowel loops are nondistended without evidence of obstruction. No free fluid or free air is seen. The appendix is normal. There is calcific atherosclerosis, greater than expected for age. No acute osseous abnormality is seen. IMPRESSION: 1. Peripancreatic edema concerning for acute pancreatitis. No fluid collections are seen on this noncontrast exam. 2. Calcific atherosclerosis, greater than expected for age. Dictated by: Dictated on workstation # [id number]
--- NOTE | 2018-09-16 13:31 | NUR ---
Pt was requesting for something to drink and she was informed that she is NPO and could not have anything to drink.
--- NOTE | 2018-09-16 14:20 | NUR ---
THIS RN TO RM TO SPEAK WITH PT ABOUT NUMEROOUS STAFF BEING ASKED TO GET PT FOOD. PT RE-INSTRUCTED ON NPO STATUS. PT HAS CONCERNS THAT INSULIN PUMP RUNNING BUT NO BOLUSES GIVEN. PT WAS INSTRUCTED TO TURN PUMP OFF PER ORDER AND PT REFUSES TO. PT STATES, "MY SUGAR WILL JUST CLIMB SO I WILL NOT TURN IT OFF." DR FRANCO NOTIFIED.
[2018-09-16] MEDS ORDERED: fentaNYL INJECTION 100 MCG/2 ML AMP IVP ONE (14:45)
--- NOTE | 2018-09-16 14:50 | NUR ---
REPORT RECEIVED VIA PHONE FROM TAMI YEBOAH AT [facility].
--- NOTE | 2018-09-16 15:00 | NUR ---
Pending transfer as EMS is currently transferring a patient out to another hospital with higher triage need.
--- NOTE | 2018-09-16 16:15 | NUR ---
[facility] here. Report given.
--- NOTE | 2018-09-16 16:20 | NUR ---
Pt departing to [address] by [facility] for admit to room 411. See transfer forms and orders.
[2018-09-16] MEDS ORDERED: CATHETER FLUSH 10 ML SYR IV PRN (17:30)
[2018-09-16] MEDS: NS IV 1000 ML 1,000 ML IV SCH (17:57)
[2018-09-16] MEDS: fentaNYL INJECTION 100 MCG/2 ML AMP IVP PRN ×3 (18:06→22:29)
[2018-09-16 18:30] VITALS: BP 111/63
--- NOTE | 2018-09-16 19:07 | NUR ---
PATIENT PRESENTED TO THIS FLOOR WITH A INSULIN PUMP. INSULIN PUMP REMOVED BY PATIENT SHE IS NPO THIS ADMISSION.
[2018-09-16 19:37] VITALS: BP 129/81
[2018-09-16] MEDS ORDERED: NICOTINE 21 MG (NICODERM) PATCH TD NR (21:00)
[2018-09-16 23:35] VITALS: BP 143/66
[2018-09-17] MEDS: fentaNYL INJECTION 100 MCG/2 ML AMP IVP PRN ×3 (00:30→08:28)
[2018-09-17] MEDS: NS IV 1000 ML 1,000 ML IV SCH ×2 (00:33→08:30)
--- NOTE | 2018-09-17 00:39 | NUR ---
PPT REPORTS NAUSEA AND REQUESTED MEDICATION. THIS RN CALLED DR HAQUE AND RECEIVED ORDER FOR ZOFRAN 4MG IV Q4H PRN
[2018-09-17] MEDS ORDERED: ONDANSETRON 4 MG/2 ML (SDV) Z0FRAN ONE (00:41)
[2018-09-17] MEDS ORDERED: ONDANSETRON 4 MG/2 ML (SDV) Z0FRAN IVP PRN (00:45)
[2018-09-17 04:33] VITALS: BP 134/76
[2018-09-17 08:39] VITALS: BP 133/75
[2018-09-17] MEDS ORDERED: NICOTINE PATCH REMOVAL TP SCH (08:59)
[2018-09-17] MEDS ORDERED: NICOTINE 21 MG (NICODERM) PATCH TD SCH (09:00)
[2018-09-17] MEDS ORDERED: PREG75CA PO (09:14)
[2018-09-17] MEDS ORDERED: ONDA8TAB13 PO (09:14)
[2018-09-17] MEDS ORDERED: OMEP40CA36 PO (09:14)
[2018-09-17] MEDS ORDERED: SUCR1TAB PO (09:14)
[2018-09-17] MEDS ORDERED: LISI2.5T PO (09:14)
[2018-09-17] MEDS ORDERED: ATOR40TA70 PO (09:14)
[2018-09-17] MEDS ORDERED: HYDR-3820 PO (09:14)
--- NOTE | 2018-09-17 09:17 | NUR ---
WENT OVER THE EXT MED HX WITH THE PATIENT. SHE VERIFIED HOW SHE TAKES HER MEDICATIONS. SHE STATES SHE DOES NOT TAKE ANYTHING ADDITIONALLY OTC. SHE DOES TAKE TWO STRENGTHS OF LISINOPRIL, ONE IN THE AM AND ONE AT HS.
[2018-09-17 09:54] LABS: HEMOGLOBIN 12.7 G/DL (11.5-16.0); MEAN PLATELET VOLUME 10.9 FL (7.4-10.4); RED CELL DISTRIBUTION WIDTH 13.2 % (10.0-14.5); WHITE BLOOD COUNT 10.9 10^3/uL (4.3-11.0)
[2018-09-17 10:16] LABS: ALANINE AMINOTRANSFERASE 11 U/L (0-55); ALBUMIN 3.9 GM/DL (3.2-4.5); ALKALINE PHOSPHATASE 73 U/L (40-136); BILIRUBIN,TOTAL 1.2 MG/DL (0.1-1.0); BUN/CREATININE RATIO 14; CALCIUM 9.3 MG/DL (8.5-10.1); CARBON DIOXIDE 19 MMOL/L (21-32); CHLORIDE 104 MMOL/L (98-107); CREATININE SERUM 0.63 MG/DL (0.60-1.30); GFR ESTIMATED > 60; GLUCOSE 109 MG/DL (70-105); LIPASE 75 U/L (8-78); SODIUM 138 MMOL/L (135-145); TOTAL PROTEIN 7.1 GM/DL (6.4-8.2)
[2018-09-17] MEDS ORDERED: inSUlin ASPART (NovoLOG) 1 UNIT/0.01 ML (CHARGE PER UNIT) SC SCH (11:00)
[2018-09-17 12:30] VITALS: BP 135/77
[2018-09-17] MEDS ORDERED: HYDROcodone/APAP 10 MG/325 MG (LORTAB) TAB PO PRN (13:00)
[2018-09-17] MEDS ORDERED: RT-ALBUTEROL SULF 2.5 MG/3 ML PRE-MIX VIAL IH PRN (13:00)
--- NOTE | 2018-09-17 13:06 | Discharge Instructions ---
Discharge Inst-[facility] Discharge Medications Continued Medications: Albuterol Sulfate (Proair Hfa) 1 Puff Puff 2 PUFF IH Q4H PRN for SHORTNESS OF BREATH, INHALER Aspirin (Aspirin EC) 81 Mg Tablet.dr 81 MG PO HS, TAB Atorvastatin Calcium (Atorvastatin Calcium) 40 Mg Tablet 40 MG PO HS, TAB Bupropion HCl (Bupropion HCl Sr) 150 Mg Tablet.er 150 MG PO BID, TAB Clopidogrel Bisulfate (Clopidogrel) 75 Mg Tablet 75 MG PO HS, TAB Dolutegravir Sodium (Tivicay) 50 Mg Tablet 50 MG PO HS, TAB Emtricitabine/Tenofov Alafenam (Descovy 200-25 mg Tablet) 1 Each Tablet 1 TAB PO HS, TAB Estradiol (Estradiol Tablet) 2 Mg Tablet 2 MG PO DAILY, TAB Furosemide (Furosemide) 40 Mg Tablet 40 MG PO DAILY, TAB Hydrocodone/Acetaminophen (Hydrocodon-Acetaminophn 10-325) 1 Each Tablet 1 TAB PO TID PRN for PAIN-MODERATE, TAB Insulin Aspart (Novolog) 100 Unit/1 Ml Susp PER INSULIN PUMP, EA Lisinopril (Lisinopril) 5 Mg Tablet 5 MG PO HS, TAB Lisinopril (Lisinopril) 2.5 Mg Tablet 2.5 MG PO DAILY, TAB Metformin HCl (Metformin HCl ER) 500 Mg Tab.er.24h 1000 MG PO BID, TAB TAKES 2 (500MG) TABLETS Metoprolol Tartrate (Metoprolol Tartrate) 25 Mg Tablet 25 MG PO BID, TAB Omeprazole (Omeprazole) 40 Mg Capsule.dr 40 MG PO DAILY, CAP Ondansetron (Ondansetron Odt) 8 Mg Tab.rapdis 8 MG PO Q4H PRN for NAUSEA/VOMITING-1ST LINE, TAB Pregabalin (Lyrica) 75 Mg Capsule 75 MG PO DAILY, CAP Pregabalin (Lyrica) 75 Mg Capsule 150 MG PO HS, CAP TAKES 2 (75MG) CAPSULES Sucralfate (Sucralfate) 1 Gm Tablet 1 GM PO ACHS PRN for INDIGESTION, TAB Patient Instructions Goal/Follow Up Appt: Follow up with Jama Russell at [facility] on [address] on 09/25 at 10 am. [facility] For: Fever, inability to keep down liquids/medications. Activity & Diet Discharge Diet: Avoid Fatty Foods Activity as Tolerated: Yes Orders-Post D/C & Referrals Pneu Vac Indicated: Yes Copy Copies To 1: MALISSA Rosales BETHANY N MD Sep 17, 2018 13:06
--- NOTE | 2018-09-17 13:13 | Short Stay Summary ---
History of Present Illness History of Present Illness Reason for visit/HPI 43 yo female presented to ER with abdominal pain, greatest in RUQ for last 2 days. She admits feeling feverish but hasn't taken her temperature. She has had nausea. Date of Admission Sep 16, 2018 at 14:28 Date of Discharge September 17, 2018 Time Seen by Provider: 09:45 Attending Physician Jersey Collado MD Admitting Physician Amy Lopes DO Consult Allergies and Home Medications Allergies Coded Allergies: hydromorphone (Verified Allergy, Unknown, b/p and oxygen level drop, ) tramadol (Verified Allergy, Unknown, ANAPHYLAXIS, 09/16/18) Uncoded Allergies: air casts (Allergy, Unknown, 11/28/17) Home Medications Albuterol Sulfate 1 Puff Puff, 2 PUFF IH Q4H PRN for SHORTNESS OF BREATH, ( Reported) Aspirin 81 Mg Tablet.dr, 81 MG PO HS, (Reported) Atorvastatin Calcium 40 Mg Tablet, 40 MG PO HS, (Reported) Bupropion HCl 150 Mg Tablet.er, 150 MG PO BID, (Reported) Clopidogrel Bisulfate 75 Mg Tablet, 75 MG PO HS, (Reported) Dolutegravir Sodium 50 Mg Tablet, 50 MG PO HS, (Reported) Emtricitabine/Tenofov Alafenam 1 Each Tablet, 1 TAB PO HS, (Reported) Estradiol 2 Mg Tablet, 2 MG PO DAILY, (Reported) Furosemide 40 Mg Tablet, 40 MG PO DAILY, (Reported) Hydrocodone/Acetaminophen 1 Each Tablet, 1 TAB PO TID PRN for PAIN-MODERATE, ( Reported) Insulin Aspart 100 Unit/1 Ml Susp, PER INSULIN PUMP, (Reported) Lisinopril 5 Mg Tablet, 5 MG PO HS, (Reported) Lisinopril 2.5 Mg Tablet, 2.5 MG PO DAILY, (Reported) Metformin HCl 500 Mg Tab.er.24h, 1,000 MG PO BID, (Reported) TAKES 2 (500MG) TABLETS Metoprolol Tartrate 25 Mg Tablet, 25 MG PO BID, (Reported) Omeprazole 40 Mg Capsule.dr, 40 MG PO DAILY, (Reported) Ondansetron 8 Mg Tab.rapdis, 8 MG PO Q4H PRN for NAUSEA/VOMITING-1ST LINE, ( Reported) Pregabalin 75 Mg Capsule, 75 MG PO DAILY, (Reported) Pregabalin 75 Mg Capsule, 150 MG PO HS, (Reported) TAKES 2 (75MG) CAPSULES Sucralfate 1 Gm Tablet, 1 GM PO ACHS PRN for INDIGESTION, (Reported) Patient Home Medication List Home Medication List Reviewed: Yes Past Nnbwhgy-Ycdpbw-Kqshcu Hx Patient Social History Alcohol Use: Denies Use Recreational Drug Use: Yes Drug of Choice: Methamphetamines Past, THC Present Smoking Status: Current Everyday Smoker Type Used: Cigarettes 2nd Hand Smoke Exposure: No Recent Foreign Travel: No Contact w/other who traveled: No Recent Hopitalizations: Yes Recent Infectious Disease Expo: No Immunizations Up To Date Date of Pneumonia Vaccine: Feb 18, 2013 Date of Influenza Vaccine: Mar 06, 2018 Seasonal Allergies Seasonal Allergies: No Surgeries Yes (April 2018- CA with stent placement, L eye removal) Coronary Stent, Eye Surgery, Gallbladder, Hysterectomy, Tubal Ligation Respiratory Yes COPD Cardiovascular Yes (CA April 2018) Heart Attack Neurological Yes (psuedoseizure when really stressed out) Seizure Disorder 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 System Hx 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 Disorders: Yes Sexually Transmitted Disease: No HIV/AIDS: Yes [employer] History: Hysterectomy Genitourinary No Gastrointestinal No Musculoskeletal Yes (patient reports herniated, bulging cervical discs) Arthritis Endocrine History of Endocrine Disorders: Yes Endocrine Disorders: Diabetes, Insulin dep HEENT History of HEENT Disorders: No HEENT Disorders: Eye Injury Loss of Vision: Left Cancer No Psychosocial History of Psychiatric Problem: Yes Behavioral Health Disorders: Anxiety, Depression Integumentary History of Skin or Integumenta: No Blood Transfusions History of Blood Disorders: Yes (Hep C, HIV) Adverse Reaction to a Blood Tr: No Family Medical History Significant Family History: Heart Disease, Diabetes, Hypertension Family Hx: Cardiovascular disease 19 FATHER 19 MOTHER Diabetes mellitus 19 FATHER FH: lung disease 19 MOTHER Review of Systems Constitutional: chills, fever EENTM: nose congestion Respiratory: cough, short of breath Cardiovascular: No chest pain Gastrointestinal: see HPI Genitourinary: No dysuria Musculoskeletal: joint pain Skin: No rash Psychiatric/Neurological: No Symptoms Reported Physical Exam Vital Signs Vital Signs - First Documented 09/16/18 09/16/18 10:31 16:20 Temp 98.6 Pulse 68 Resp 20 B/P (MAP) 164/97 (119) Pulse Ox 96 O2 Delivery Room Air Capillary Refill : Less Than 3 SecondsLess Than 3 Seconds Height, Weight, BMI Height: 5'5.00" Weight: 236lbs. 3.0oz. [id number]; 38.1 BMI Method:Stated General Appearance: No Apparent Distress, WD/WN Respiratory: Lungs Clear, Normal Breath Sounds Cardiovascular: Regular Rate, Rhythm, No Edema Gastrointestinal: Normal Bowel Sounds, No Organomegaly, Non Tender, Soft Extremity: No Pedal Edema Neurologic/Psychiatric: Alert, Normal Mood/Affect Skin: Normal Color, Warm/Dry Clinical Quality Measures DVT/VTE Risk/Contraindication: Risk Factor Score Per Nursin RFS Level Per Nursing on Admit: 4+=Very High Short Stay Diagnosis Discharge Diagnosis-Short Stay Admission Diagnosis: Pancreatitis Final Discharge Diagnosis: Pancreatitis- unclear etiology, has had GB removed in past. Mild findings and tolerating diet on day after d/c with minimal pain. Conclusion Labs Laboratory Tests 09/17/18 09:45: White Blood Count 10.9, Red Blood Count 4.38, Hemoglobin 12.7, Hematocrit 39, Mean Corpuscular Volume 89, Mean Corpuscular Hemoglobin 29, Mean Corpuscular Hemoglobin Concent 33, Red Cell Distribution Width 13.2, Platelet Count 211, Mean Platelet Volume 10.9H, Sodium Level 138, Potassium Level 4.0, Chloride Level 104, Carbon Dioxide Level 19L, Anion Gap 15H, Blood Urea Nitrogen 9, Creatinine 0.63, Estimat Glomerular Filtration Rate > 60, BUN/Creatinine Ratio 14, Glucose Level 109H, Calcium Level 9.3, Corrected Calcium 9.4, Total Bilirubin 1.2H, Aspartate Amino Transf (AST/SGOT) 11, Alanine Aminotransferase ( ALT/SGPT) 11, Alkaline Phosphatase 73, Total Protein 7.1, Albumin 3.9, Lipase 75 09/17/18 11:22: Glucometer 115H Conclusion/Plan See discharge diagnosis. JERSEY COLLADO MD Sep 17, 2018 13:13
[2018-09-17] MEDS ORDERED: HYDROcodone/APAP 5 MG/325 MG (LORTAB) TAB ONE (14:19)
--- NOTE | 2018-09-17 14:35 | NUR ---
hydrocodone 5/325 mg PO overridden by this RN, but given by TAMI Herrera.
[2018-09-17 15:20] VITALS: BP 135/77
[2018-09-17] MEDS ORDERED: buPROPion SR 150 MG (WELLBUTRIN SR) TAB PO SCH (17:00)
[2018-09-17] MEDS ORDERED: ASPIRIN E.C. 81 MG (ECOTRIN) TAB PO SCH (21:00)
[2018-09-17] MEDS ORDERED: ATORVASTATIN 40 MG (LIPITOR) TABLET PO SCH (21:00)
[2018-09-17] MEDS ORDERED: DOLUTEGRAVIR SODIUM 50 MG PO SCH (21:00)
[2018-09-17] MEDS ORDERED: PREGABALIN 75 MG (LYRICA) CAP PO SCH (21:00)
[2018-09-17] MEDS ORDERED: lisINopril 5 MG (PRINIVIL) TABLET PO SCH (21:00)
[2018-09-17] MEDS ORDERED: [UNRECOGNIZED DRUG - OTHER] PO SCH (21:00)
[2018-09-17] MEDS ORDERED: CLOPIDOGREL 75 MG (PLAVIX) TABLET PO SCH (21:00)
[2018-09-17] MEDS ORDERED: meTOprolol TARTRATE 25 MG (LOPRESSOR) TABLET PO SCH (21:00)
[2018-09-17] MEDS ORDERED: NON-FORMULARY MEDICATION 1 EA EA (Bupropion HCl (Bupropion HCl Sr) 150 MG) PO SCH (21:00)
[2018-09-18] MEDS ORDERED: PANTOPRAZOLE 40 MG (PROTONIX) TAB PO SCH (07:00)
[2018-09-18] MEDS ORDERED: PREGABALIN 75 MG (LYRICA) CAP PO SCH (09:00)
[2018-09-18] MEDS ORDERED: ESTRADIOL 2 MG PO SCH (09:00)
[2018-09-18] MEDS ORDERED: FUROSEMIDE 40 MG (LASIX) TAB PO SCH (09:00)
[2018-09-18] MEDS ORDERED: NON-FORMULARY MEDICATION 1 EA EA (Lisinopril 2.5 MG) PO SCH (09:00)
[2018-09-18] MEDS ORDERED: NON-FORMULARY MEDICATION 1 EA EA (Omeprazole 40 MG) PO SCH (09:00)
== END 2018-09-17 15:10 | disposition home or self-care (01) | DRG 439 ==
LOC: EDUNIT# 10:31 → ER FS 10:32 → 4TH 14:28
PROVIDERS: ADMIT Family Medicine; ATTEND Family Medicine
DX: K85.90 Acute pancreatitis without necrosis or infection, unspecified (principal); B20 Human immunodeficiency virus [HIV] disease; B19.20 Unspecified viral hepatitis C without hepatic coma; I25.2 Old myocardial infarction; J44.9 Chronic obstructive pulmonary disease, unspecified; E11.9 Type 2 diabetes mellitus without complications; G40.909 Epilepsy, unspecified, not intractable, without status epilepticus; M19.91 Primary osteoarthritis, unspecified site; M50.20 Other cervical disc displacement, unspecified cervical region; F41.9 Anxiety disorder, unspecified; F32.9 Major depressive disorder, single episode, unspecified; F17.210 Nicotine dependence, cigarettes, uncomplicated; F12.90 Cannabis use, unspecified, uncomplicated; Z95.5 Presence of coronary angioplasty implant and graft; Z79.4 Long term (current) use of insulin; Z90.49 Acquired absence of other specified parts of digestive tract
CPT/HCPCS: 36415; 74176; 80053; 80306; 81000; 82962; 83690; 85025; 85027; 96374; 96375; G0378

== ENCOUNTER 2018-11-25 16:21 | Emergency (ER) | payer BC, MEDICAID ==
[~2018-11-25] VITALS: Ht 165.1 cm; Wt 101.6 kg
[~2018-11-25 16:21] MED LIST changes: +ATOR40TA70 PO; +HYDR-3820 PO; +ONDA8TAB13 PO; +SUCR1TAB PO
--- OUTSIDE RECORDS SUMMARY | 2018-11-25 16:25 | XMS REPORT | Clinical Summary ---
Author Author [facility] Organization [facility] Address Unknown Phone Unavailable Care Team Providers Care Direct Support Staff Member Name Role Phone AlvarezBenja reed FOOD CONSULTANT Unavailable Yesi Escudero NP Unavailable Katharina Yarbrough RN Unavailable Unavailable Mian Barraza RN Unavailable Unavailable Milly Sy RN Unavailable Unavailable Self, Referral PCP Unavailable Source Comments Some departments are not documenting in the electronic medical record. If you d o not see the information that you expected, contact Release of Information in [facility] [employer] Information Management department at [phone] for further assistan ce in locating additional records.[facility] Allergies Comments Active Allergy Reactions Severity Noted [...] Years Used Current Every Day Smoker 0.25 Drinks/Week oz/Week Comments Alcohol Use No Sex Assigned at Date Recorded Not on file Industry Job Start Date Occupation Not on file Not on file Not on file Travel End Travel History Travel Start No recent travel history available. Last Filed Vital Signs Reading Time Taken Comments Vital Sign 183/82 01/17/2011 8:52 PM CDT Blood Pressure 89 12/15/2009 8:40 PM CDT Pulse 36.9 C (98.4 F) 01/17/2011 8:52 PM CDT Temperature - - Respiratory Rate 100% 01/17/2011 8:52 PM CDT Oxygen Saturation - - Inhaled Oxygen Concentration - - Weight - - Height - - Body Mass Index Plan of Treatment Health Maintenance Due Date Last Done Comments PHYSICAL (COMPREHENSIVE) 1983 EXAM HIV SCREENING 1991 DTAP/TDAP VACCINES (1 - 1994 Tdap) CERVICAL CANCER SCREENING 2006 BREAST CANCER SCREENING 2016 INFLUENZA VACCINE 02/18/2019 Results Not on filefrom Last 3 Months Advance Directives Patient Utility Pipe Layer Explanation Type Date Recorded Advance Directive/DPOA
--- OUTSIDE RECORDS SUMMARY | 2018-11-25 16:29 | XMS REPORT | Continuity of Care Document ---
Author Organization Unknown Address Unknown Allergies Active Description Code Type Severity Reaction Onset Reported/Identified Relationship to Patient Clinical Status Yes hydromorphone [id number] Drug Allergy Unknown N/A 11/05/2008 Yes air casts air casts Unknown N/A 06/26/2013 Yes air casts air casts Unknown N/A 11/28/2017 Yes hydromorphone [id number] Drug Allergy Unknown b/p and oxygen 09/16/2018 Yes tramadol [id number] Drug Allergy Unknown ANAPHYLAXIS 09/16/2018 Medications There is no data. Problems Date [...] E885.9 FALL FROM SLIPPING, TRIPPING, OR STUMBLI 06/26/2013 Ot 845.00 SPRAIN OF ANKLE NOS 06/26/2013 Ot 959.7 LOWER LEG INJURY NOS 06/26/2013 Ot E000.8 OTHER EXTERNAL CAUSE STATUS 06/26/2013 Ot E849.6 ACCIDENT IN PUBLIC BLDG 06/26/2013 Ot E885.9 FALL FROM SLIPPING, TRIPPING, OR STUMBLI 08/11/2016 EMILY STRATTON, KATELYNN Schaeffer Ot K92.1 MELENA 08/11/2016 EMILY STRATTON, KATELYNN Schaeffer Ot R11.2 NAUSEA WITH VOMITING, UNSPECIFIED 08/11/2016 EMILY STRATTON, KATELYNN Schaeffer Ot Z01.818 ENCOUNTER FOR OTHER PREPROCEDURAL EXAMIN 08/11/2016 EMILY STRATTON, KATELYNN Schaeffer Ot K92.1 MELENA 08/11/2016 EMILY STRATTON, KATELYNN M Ot R11.2 NAUSEA WITH VOMITING, UNSPECIFIED 08/11/2016 EMILY STRATTON, KATELYNN M Ot Z01.818 ENCOUNTER FOR OTHER PREPROCEDURAL EXAMIN 08/11/2016 EMILY STRATTON, KATELYNN M Ot K92.1 MELENA 08/11/2016 EMILY STRATTON, KATELYNN M Ot R11.2 NAUSEA WITH VOMITING, UNSPECIFIED 08/11/2016 EMILY STRATTON, KATELYNN M Ot Z01.818 ENCOUNTER FOR OTHER PREPROCEDURAL EXAMIN 08/11/2016 EMILY STRATTON, KATELYNN M Ot K92.1 MELENA 08/11/2016 EMILY STRATTON, KATELYNN M Ot R11.2 NAUSEA WITH VOMITING, UNSPECIFIED 08/11/2016 EMILY STRATTON, KATELYNN M Ot Z01.818 ENCOUNTER FOR OTHER PREPROCEDURAL EXAMIN 08/14/2016 EMILY STRATTON, KATELYNN M Ot K20.8 OTHER ESOPHAGITIS 08/14/2016 EMILY STRATTON, KATELYNN M Ot K25.7 CHRONIC GASTRIC ULCER WITHOUT HEMORRHAGE 08/14/2016 EMILY STRATTON, KATELYNN M Ot K64.8 OTHER HEMORRHOIDS 08/14/2016 EMILY STRATTON, KATELYNN M Ot Z21 ASYMPTOMATIC HUMAN IMMUNODEFICIENCY VIRU 08/15/2016 EMILY STRATTON, KATELYNN M Ot K20.8 OTHER ESOPHAGITIS 08/15/2016 EMILY STRATTON, KATELYNN M Ot K25.7 CHRONIC GASTRIC ULCER WITHOUT HEMORRHAGE 08/15/2016 EMILY STRATTON, KATELYNN M Ot K64.8 OTHER HEMORRHOIDS 08/15/2016 EMILY STRATTON, KATELYNN M Ot Z21 ASYMPTOMATIC HUMAN IMMUNODEFICIENCY VIRU 08/23/2016 EMILY STRATTON, KATELYNN M Ot K20.8 OTHER ESOPHAGITIS 08/23/2016 EMILY STRATTON, KATELYNN M Ot K25.7 CHRONIC GASTRIC ULCER WITHOUT HEMORRHAGE 08/23/2016 EMILY STRATTON, KATELYNN M Ot K64.8 OTHER HEMORRHOIDS 08/23/2016 EMILY STRATTON, KATELYNN M Ot Z21 ASYMPTOMATIC HUMAN IMMUNODEFICIENCY VIRU 10/18/2017 CARL ROJO MD Ot B19.20 UNSPECIFIED VIRAL HEPATITIS C WITHOUT HE 10/18/2017 CARL ROJO MD Ot F31.9 BIPOLAR DISORDER, UNSPECIFIED 10/18/2017 CARL ROJO MD Ot F41.9 ANXIETY DISORDER, UNSPECIFIED 10/18/2017 CARL ROJO MD Ot F43.10 POST-TRAUMATIC STRESS DISORDER, UNSPECIF 10/18/2017 CARL ROJO MD Ot G40.909 EPILEPSY, UNSP, NOT INTRACTABLE, WITHOUT 10/18/2017 CARL ROJO MD Ot J44.9 CHRONIC OBSTRUCTIVE PULMONARY DISEASE, U 10/18/2017 CARL ROJO MD Ot R11.10 VOMITING, UNSPECIFIED 10/18/2017 CARL ROJO MD Ot R11.2 NAUSEA WITH VOMITING, UNSPECIFIED 10/18/2017 CARL ROJO MD Ot Z79.4 WEB [employer]ESS ROLL TENDER (CURRENT) USE OF INSULIN 10/18/2017 CARL ROJO MD Ot Z88.6 ALLERGY STATUS TO ANALGESIC AGENT STATUS 10/18/2017 CARL ROJO MD Ot Z88.8 ALLERGY STATUS TO OTH DRUG/MEDS/BIOL SUB 10/18/2017 CARL ROJO MD Ot Z98.51 TUBAL LIGATION STATUS 10/22/2017 CARL ROJO MD Ot B19.20 UNSPECIFIED VIRAL HEPATITIS C WITHOUT HE 10/22/2017 CARL ROJO MD Ot F31.9 BIPOLAR DISORDER, UNSPECIFIED 10/22/2017 CARL ROJO MD Ot F41.9 ANXIETY DISORDER, UNSPECIFIED 10/22/2017 CARL ROJO MD Ot F43.10 POST-TRAUMATIC STRESS DISORDER, UNSPECIF 10/22/2017 CARL ROJO MD Ot G40.909 EPILEPSY, UNSP, NOT INTRACTABLE, WITHOUT 10/22/2017 CARL ROJO MD Ot J44.9 CHRONIC OBSTRUCTIVE PULMONARY DISEASE, U 10/22/2017 CARL ROJO MD Ot R11.10 VOMITING, UNSPECIFIED 10/22/2017 CARL ROJO MD Ot R11.2 NAUSEA WITH VOMITING, UNSPECIFIED 10/22/2017 CARL ROJO MD Ot Z79.4 HALF-WAY (CURRENT) USE OF INSULIN 10/22/2017 CARL ROJO MD Ot Z88.6 ALLERGY STATUS TO ANALGESIC AGENT STATUS 10/22/2017 CARL ROJO MD Ot Z88.8 ALLERGY STATUS TO OTH DRUG/MEDS/BIOL SUB 10/22/2017 CARL ROJO MD Ot Z98.51 TUBAL LIGATION STATUS 11/17/2017 CHAPARRO KELLEY MD Ot E11.9 TYPE 2 DIABETES MELLITUS WITHOUT COMPLIC 11/17/2017 CHAPARRO KELLEY MD Ot F12.90 CANNABIS USE, UNSPECIFIED, UNCOMPLICATED 11/17/2017 CHAPARRO KELLEY MD Ot F17.210 NICOTINE DEPENDENCE, CIGARETTES, UNCOMPL 11/17/2017 CHAPARRO KELLEY MD Ot F31.9 BIPOLAR DISORDER, UNSPECIFIED 11/17/2017 CHAPARRO KELLEY MD Ot F41.9 ANXIETY DISORDER, UNSPECIFIED 11/17/2017 CHAPARRO KELLEY MD Ot F43.10 POST-TRAUMATIC STRESS DISORDER, UNSPECIF 11/17/2017 CHAPARRO KELLEY MD Ot G40.909 EPILEPSY, UNSP, NOT INTRACTABLE, WITHOUT 11/17/2017 CHAPARRO KELLEY MD Ot J44.9 CHRONIC OBSTRUCTIVE PULMONARY DISEASE, U 11/17/2017 CHAPARRO KELLEY MD Ot M54.2 CERVICALGIA 11/17/2017 CHAPARRO KELLEY MD Ot M54.9 DORSALGIA, UNSPECIFIED 11/17/2017 CHAPARRO KELLEY MD Ot R51 HEADACHE 11/17/2017 CHAPARRO KELLEY MD Ot Z21 ASYMPTOMATIC HUMAN IMMUNODEFICIENCY VIRU 11/17/2017 CHAPARRO KELLEY MD Ot Z79.4 HALF-WAY (CURRENT) USE OF INSULIN 11/17/2017 CHAPARRO KELLEY MD Ot Z88.6 ALLERGY STATUS TO ANALGESIC AGENT STATUS 11/17/2017 CHAPARRO KELLEY MD Ot Z98.51 TUBAL LIGATION STATUS 11/20/2017 CHAPARRO KELLEY MD Ot E11.9 TYPE 2 DIABETES MELLITUS WITHOUT COMPLIC 11/20/2017 CHAPARRO KELLEY MD Ot F12.90 CANNABIS USE, UNSPECIFIED, UNCOMPLICATED 11/20/2017 CHAPARRO KELLEY MD Ot F17.210 NICOTINE DEPENDENCE, CIGARETTES, UNCOMPL 11/20/2017 CHAPARRO KELLEY MD Ot F31.9 BIPOLAR DISORDER, UNSPECIFIED 11/20/2017 CHAPARRO KELLEY MD Ot F41.9 ANXIETY DISORDER, UNSPECIFIED 11/20/2017 CHAPARRO KELLEY MD Ot F43.10 POST-TRAUMATIC STRESS DISORDER, UNSPECIF 11/20/2017 CHAPARRO KELLEY MD Ot G40.909 EPILEPSY, UNSP, NOT INTRACTABLE, WITHOUT 11/20/2017 CHAPARRO KELLEY MD Ot J44.9 CHRONIC OBSTRUCTIVE PULMONARY DISEASE, U 11/20/2017 CHAPARRO KELLEY MD Ot M54.2 CERVICALGIA 11/20/2017 CHAPARRO KELLEY MD Ot M54.9 DORSALGIA, UNSPECIFIED 11/20/2017 CHAPARRO KELLEY MD Ot R51 HEADACHE 11/20/2017 CHAPARRO KELLEY MD Ot Z21 ASYMPTOMATIC HUMAN IMMUNODEFICIENCY VIRU 11/20/2017 CHAPARRO KELLEY MD Ot Z79.4 WEB [employer]ESS ROLL TENDER (CURRENT) USE OF INSULIN 11/20/2017 CHAPARRO KELLEY MD Ot Z88.6 ALLERGY STATUS TO ANALGESIC AGENT STATUS 11/20/2017 CHAPARRO KELLEY MD Ot Z98.51 TUBAL LIGATION STATUS 11/23/2017 CHAPARRO KELLEY MD Ot E11.9 TYPE 2 DIABETES MELLITUS WITHOUT COMPLIC 11/23/2017 CHAPARRO KELLEY MD Ot F12.90 CANNABIS USE, UNSPECIFIED, UNCOMPLICATED 11/23/2017 CHAPARRO KELLEY MD Ot F17.210 NICOTINE DEPENDENCE, CIGARETTES, UNCOMPL 11/23/2017 CHAPARRO KELLEY MD Ot F31.9 BIPOLAR DISORDER, UNSPECIFIED 11/23/2017 CHAPARRO KELLEY MD Ot F41.9 ANXIETY DISORDER, UNSPECIFIED 11/23/2017 CHAPARRO KELLEY MD Ot F43.10 POST-TRAUMATIC STRESS DISORDER, UNSPECIF 11/23/2017 CHAPARRO KELLEY MD Ot G40.909 EPILEPSY, UNSP, NOT INTRACTABLE, WITHOUT 11/23/2017 CHAPARRO KELLEY MD Ot J44.9 CHRONIC OBSTRUCTIVE PULMONARY DISEASE, U 11/23/2017 CHAPARRO KELLEY MD Ot M54.2 CERVICALGIA 11/23/2017 CHAPARRO KELLEY MD Ot M54.9 DORSALGIA, UNSPECIFIED 11/23/2017 CHAPARRO KELLEY MD Ot R51 HEADACHE 11/23/2017 CHAPARRO KELLEY MD Ot Z21 ASYMPTOMATIC HUMAN IMMUNODEFICIENCY VIRU 11/23/2017 CHAPARRO KELLEY MD Ot Z79.4 WEB [employer]ESS ROLL T[employer]ER (CURRENT) USE OF INSULIN 11/23/2017 CHAPARRO KELLEY MD Ot Z88.6 ALLERGY STATUS TO ANALGESIC AGENT STATUS 11/23/2017 CHAPARRO KELLEY MD Ot Z98.51 TUBAL LIGATION STATUS 11/23/2017 YAYA CHAVISKEN Ot N76.4 ABSCESS OF VULVA 11/26/2017 YAYA STEPHANIE CHAVISA Soheila Ot N76.4 ABSCESS OF VULVA 11/29/2017 VERA HARKINS MD (DDU) Ot Z02.71 ENCOUNTER FOR DISABILITY DETERMINATION 12/04/2017 VERA HARKINS MD (DDU) Ot Z02.71 ENCOUNTER FOR DISABILITY DETERMINATION 12/18/2017 VERA HARKINS MD (DDU) Ot Z02.71 ENCOUNTER FOR DISABILITY DETERMINATION 12/18/2017 MALLORIE LAWS MD Ot E11.9 TYPE 2 DIABETES MELLITUS WITHOUT COMPLIC 12/18/2017 MALLORIE LAWS MD Ot E78.00 PURE HYPERCHOLESTEROLEMIA, UNSPECIFIED 12/18/2017 MALLORIE LAWS MD Ot F12.10 CANNABIS ABUSE, UNCOMPLICATED 12/18/2017 MALLORIE LAWS MD Ot F15.10 OTHER STIMULANT ABUSE, UNCOMPLICATED 12/18/2017 MALLORIE LAWS MD Ot F17.210 NICOTINE DEPENDENCE, CIGARETTES, UNCOMPL 12/18/2017 MALLORIE LAWS MD Ot F31.9 BIPOLAR DISORDER, UNSPECIFIED 12/18/2017 MALLORIE LAWS MD Ot F41.9 ANXIETY DISORDER, UNSPECIFIED 12/18/2017 MALLORIE LAWS MD Ot F43.10 POST-TRAUMATIC STRESS DISORDER, UNSPECIF 12/18/2017 MALLORIE LAWS MD Ot G40.909 EPILEPSY, UNSP, NOT INTRACTABLE, WITHOUT 12/18/2017 MALLORIE LAWS MD Ot I21.9 ACUTE MYOCARDIAL INFARCTION, UNSPECIFIED 12/18/2017 MALLORIE LAWS MD Ot J44.9 CHRONIC OBSTRUCTIVE PULMONARY DISEASE, U 12/18/2017 MALLORIE LAWS MD Ot R07.89 OTHER CHEST PAIN 12/18/2017 MALLORIE LAWS MD Ot Z21 ASYMPTOMATIC HUMAN IMMUNODEFICIENCY VIRU 12/18/2017 MALLORIE LAWS MD Ot Z79.4 WE[employer]ESS [employer] T[employer]ER (CURRENT) USE OF INSULIN 12/18/2017 MALLORIE LAWS MD Ot Z82.49 FAMILY HX OF ISCHEM HEART DIS AND OTH DI 12/18/2017 MALLORIE LAWS MD Ot Z88.5 ALLERGY STATUS TO NARCOTIC AGENT STATUS 12/18/2017 VETO STRATTON, MALLORIE Mcleod Ot Z88.6 ALLERGY STATUS TO ANALGESIC AGENT STATUS 12/18/2017 VETO STRATTON, MALLORIE Mcleod Ot Z98.51 TUBAL LIGATION STATUS 02/25/2018 CHRISTINA STRATTON, M LUIS Ot E11.9 TYPE 2 DIABETES MELLITUS WITHOUT COMPLIC 02/25/2018 CHRISTINA STRATTON, Maksim SMITH Ot I07.1 RHEUMATIC TRICUSPID INSUFFICIENCY 02/25/2018 CHRISTINA STRATTON, Maksim SMITH Ot I10 ESSENTIAL (PRIMARY) HYPERTENSION 02/25/2018 CHRISTINA STRATTON, Maksim SMITH Ot I25.10 ATHSCL HEART DISEASE OF [place] CORONARY 02/25/2018 CHRISTINA STRATTON, Maksim SMITH Ot I42.8 OTHER CARDIOMYOPATHIES 02/25/2018 CHRISTINA STRATTON, Maksim SMITH Ot Z72.0 TOBACCO USE 04/09/2018 LANI HALLMANIS Ot B19.20 UNSPECIFIED VIRAL HEPATITIS C WITHOUT HE 04/09/2018 LANI HALLMANIS Ot B34.9 VIRAL INFECTION, UNSPECIFIED 04/09/2018 VIJI SKIP Ot F12.10 CANNABIS ABUSE, UNCOMPLICATED 04/09/2018 VIJI SKIP Ot F15.10 OTHER STIMULANT ABUSE, UNCOMPLICATED 04/09/2018 LANI HALLMANIS Ot F17.210 NICOTINE DEPENDENCE, CIGARETTES, UNCOMPL 04/09/2018 VIJI SKIP Ot F31.9 BIPOLAR DISORDER, UNSPECIFIED 04/09/2018 LANI HALLMANIS Ot F41.9 ANXIETY DISORDER, UNSPECIFIED 04/09/2018 LANI HALLMANIS Ot F43.10 POST-TRAUMATIC STRESS DISORDER, UNSPECIF 04/09/2018 VIJI SKIP Ot G40.909 EPILEPSY, UNSP, NOT INTRACTABLE, WITHOUT 04/09/2018 VIJI SKIP Ot J44.9 CHRONIC OBSTRUCTIVE PULMONARY DISEASE, U 04/09/2018 SKIP HALLMAN Ot R05 COUGH 04/09/2018 LANI HALLMANIS Ot Z21 ASYMPTOMATIC HUMAN IMMUNODEFICIENCY VIRU 04/09/2018 LANI HALLMANIS Ot Z79.4 WEB [employer]ESS ROLL TENDER (CURRENT) USE OF INSULIN 04/09/2018 LANI HALLMANIS Ot Z88.6 ALLERGY STATUS TO ANALGESIC AGENT STATUS 04/09/2018 LANI HALLMANIS Ot Z88.8 ALLERGY STATUS TO OTH DRUG/MEDS/BIOL SUB 04/09/2018 LANI HALLMANIS Ot Z98.51 TUBAL LIGATION STATUS 04/11/2018 SKIP HALLMAN Ot B19.20 UNSPECIFIED VIRAL HEPATITIS C WITHOUT HE 04/11/2018 LANI HALLMANIS Ot B34.9 VIRAL INFECTION, UNSPECIFIED 04/11/2018 LANI HALLMANIS Ot F12.10 CANNABIS ABUSE, UNCOMPLICATED 04/11/2018 LANI HALLMANIS Ot F15.10 OTHER STIMULANT ABUSE, UNCOMPLICATED 04/11/2018 LANI HALLMANIS Ot F17.210 NICOTINE DEPENDENCE, CIGARETTES, UNCOMPL 04/11/2018 LANI HALLMANIS Ot F31.9 BIPOLAR DISORDER, UNSPECIFIED 04/11/2018 LANI HALLMANIS Ot F41.9 ANXIETY DISORDER, UNSPECIFIED 04/11/2018 LANI HALLMANIS Ot F43.10 POST-TRAUMATIC STRESS DISORDER, UNSPECIF 04/11/2018 SKIP HALLMAN Ot G40.909 EPILEPSY, UNSP, NOT INTRACTABLE, WITHOUT 04/11/2018 LANI HALLMANIS Ot J44.9 CHRONIC OBSTRUCTIVE PULMONARY DISEASE, U 04/11/2018 LANI HALLMANIS Ot R05 COUGH 04/11/2018 LANI HALLMANIS Ot Z21 ASYMPTOMATIC HUMAN IMMUNODEFICIENCY VIRU 04/11/2018 LANI HALLMANIS Ot Z79.4 HALF-WAY (CURRENT) USE OF INSULIN 04/11/2018 LANI HALLMANIS Ot Z88.6 ALLERGY STATUS TO ANALGESIC AGENT STATUS 04/11/2018 LANI HALLMANIS Ot Z88.8 ALLERGY STATUS TO OTH DRUG/MEDS/BIOL SUB 04/11/2018 SKIP HALLMAN Ot Z98.51 TUBAL LIGATION STATUS 04/15/2018 SKIP HALLMAN Ot B19.20 UNSPECIFIED VIRAL HEPATITIS C WITHOUT HE 04/15/2018 SKIP HALLMAN Ot B34.9 VIRAL INFECTION, UNSPECIFIED 04/15/2018 SKIP HALLMAN Ot F12.10 CANNABIS ABUSE, UNCOMPLICATED 04/15/2018 LANI HALLMANIS Ot F15.10 OTHER STIMULANT ABUSE, UNCOMPLICATED 04/15/2018 VIJI SKIP Ot F17.210 NICOTINE DEPENDENCE, CIGARETTES, UNCOMPL 04/15/2018 LANI HALLMANIS Ot F31.9 BIPOLAR DISORDER, UNSPECIFIED 04/15/2018 LANI HALLMANIS Ot F41.9 ANXIETY DISORDER, UNSPECIFIED 04/15/2018 LANI HALLMANIS Ot F43.10 POST-TRAUMATIC STRESS DISORDER, UNSPECIF 04/15/2018 SKIP HALLMAN Ot G40.909 EPILEPSY, UNSP, NOT INTRACTABLE, WITHOUT 04/15/2018 SKIP HALLMAN Ot J44.9 CHRONIC OBSTRUCTIVE PULMONARY DISEASE, U 04/15/2018 SKIP HALLMAN Ot R05 COUGH 04/15/2018 LANI HALLMANIS Ot Z21 ASYMPTOMATIC HUMAN IMMUNODEFICIENCY VIRU 04/15/2018 SKIP HALLMAN Ot Z79.4 HALF-WAY (CURRENT) USE OF INSULIN 04/15/2018 LANI HALLMANIS Ot Z88.6 ALLERGY STATUS TO ANALGESIC AGENT STATUS 04/15/2018 LANI HALLMANIS Ot Z88.8 ALLERGY STATUS TO OTH DRUG/MEDS/BIOL SUB 04/15/2018 SKIP HALLMAN Ot Z98.51 TUBAL LIGATION STATUS 05/06/2018 CHRISTINA STRATTON, Maksim SMITH Ot B20 HUMAN IMMUNODEFICIENCY VIRUS [HIV] DISEA 05/06/2018 CHRISTINA STRATTON, M LUIS Ot E10.59 TYPE 1 DIABETES MELLITUS WITH OTH CIRCUL 05/06/2018 CHRISTINA STRATTON M LUIS Ot E10.65 TYPE 1 DIABETES MELLITUS WITH HYPERGLYCE 05/06/2018 CHRISTINA STRATTON M LUIS Ot E78.5 HYPERLIPIDEMIA, UNSPECIFIED 05/06/2018 CHRISTINA STRATTON M LUIS Ot E83.39 OTHER DISORDERS OF PHOSPHORUS METABOLISM 05/06/2018 CHRISTINA STRATTON M LUIS Ot E83.42 HYPOMAGNESEMIA 05/06/2018 CHRISTINA STRATTON M LUIS Ot E87.1 HYPO-OSMOLALITY AND HYPONATREMIA 05/06/2018 CHRISTINA STRATTON M LUIS Ot F15.10 OTHER STIMULANT ABUSE, UNCOMPLICATED 05/06/2018 CHRISTINA STRATTON M LUIS Ot F17.210 NICOTINE DEPENDENCE, CIGARETTES, UNCOMPL 05/06/2018 CHRISTINA STRATTON M LIUS Ot F31.9 BIPOLAR DISORDER, UNSPECIFIED 05/06/2018 CHRISTINA STRATTON M LUIS Ot F41.9 ANXIETY DISORDER, UNSPECIFIED 05/06/2018 CHRISTINA STRATTON M LUIS Ot F43.10 POST-TRAUMATIC STRESS DISORDER, UNSPECIF 05/06/2018 Maksim VASQUEZ MD Ot I10 ESSENTIAL (PRIMARY) HYPERTENSION 05/06/2018 Maksim VASQUEZ MD Ot I21.3 ST ELEVATION (STEMI) MYOCARDIAL INFARCTI 05/06/2018 Maksim VASQUEZ MD, Ot I25.10 ATHSCL HEART DISEASE OF [place] CORONARY 05/06/2018 Maksim VASQUEZ MD, Ot I25.2 OLD MYOCARDIAL INFARCTION 05/06/2018 Maksim VASQUEZ MD Ot I42.9 CARDIOMYOPATHY, UNSPECIFIED 05/06/2018 Maksim VASQUEZ MD, Ot J44.9 CHRONIC OBSTRUCTIVE PULMONARY DISEASE, U 05/06/2018 Maksim VASQUEZ MD, Ot M79.661 PAIN IN RIGHT LOWER LEG 05/06/2018 Maksim VASQUEZ MD Ot R91.1 SOLITARY PULMONARY NODULE 05/06/2018 Maksim VASQUEZ MD Ot T82.855A STENOSIS OF CORONARY ARTERY STENT, INITI 05/06/2018 Maksim VASQUEZ MD, Ot Z91.19 PATIENT'S NONCOMPLIANCE W [facility] 06/27/2018 TORIN STRATTON, VERA Melton (U) Ot Z02.71 ENCOUNTER FOR DISABILITY DETERMINATION 06/27/2018 Maksim VASQUEZ MD Ot E11.9 TYPE 2 DIABETES MELLITUS WITHOUT COMPLIC 06/27/2018 Maksim VASQUEZ MD Ot I07.1 RHEUMATIC TRICUSPID INSUFFICIENCY 06/27/2018 Maksim VASQUEZ MD Ot I10 ESSENTIAL (PRIMARY) HYPERTENSION 06/27/2018 Maksim VASQUEZ MD Ot I25.10 ATHSCL HEART DISEASE OF [place] CORONARY 06/27/2018 Maksim VASQUEZ MD Ot I42.8 OTHER CARDIOMYOPATHIES 06/27/2018 Maksim VASQUEZ MD Ot Z72.0 TOBACCO USE 06/28/2018 JERSEY HAQUE MD Ot E11.9 TYPE 2 DIABETES MELLITUS WITHOUT COMPLIC 06/28/2018 JERSEY HAQUE MD Ot E78.00 PURE HYPERCHOLESTEROLEMIA, UNSPECIFIED 06/28/2018 JERSEY HAQUE MD Ot F17.210 NICOTINE DEPENDENCE, CIGARETTES, UNCOMPL 06/28/2018 JERSEY HAQUE MD, Ot F31.9 BIPOLAR DISORDER, UNSPECIFIED 06/28/2018 JERSEY HAQUE MD, Ot F41.9 ANXIETY DISORDER, UNSPECIFIED 06/28/2018 JERSEY HAQUE MD, Ot F43.10 POST-TRAUMATIC STRESS DISORDER, UNSPECIF 06/28/2018 JERSEY HAQUE MD, Ot G40.909 EPILEPSY, UNSP, NOT INTRACTABLE, WITHOUT 06/28/2018 JERSEY HAQUE MD Ot I10 ESSENTIAL (PRIMARY) HYPERTENSION 06/28/2018 JERSEY HAQUE MD, Ot I25.10 ATHSCL HEART DISEASE OF [place] CORONARY 06/28/2018 JERSEY HAQUE MD, Ot I25.2 OLD MYOCARDIAL INFARCTION 06/28/2018 JERSEY HAQUE MD, Ot R07.9 CHEST PAIN, UNSPECIFIED 06/28/2018 JERSEY HAQUE MD, Ot R91.8 OTHER NONSPECIFIC ABNORMAL FINDING OF [place] 06/28/2018 JERSEY HAQUE MD, Ot Z79.4 HALF-WAY (CURRENT) USE OF INSULIN 06/28/2018 JERSEY HAQUE MD, Ot Z79.82 HALF-WAY (CURRENT) USE OF ASPIRIN 06/28/2018 JERSEY HAQUE MD, Ot Z79.899 OTHER WEB [employer]ESS ROLL TENDER (CURRENT) DRUG THERAPY 06/28/2018 JERSEY HAQUE MD, Ot Z86.19 PERSONAL HISTORY OF OTHER INFECTIOUS AND 06/28/2018 JERSEY HAQUE MD, Ot Z91.19 PATIENT'S NONCOMPLIANCE W [facility] 06/28/2018 JERSEY HAQUE MD, Ot Z95.5 PRESENCE OF CORONARY ANGIOPLASTY IMPLANT 06/28/2018 JERSEY HAQUE MD Ot E11.9 TYPE 2 DIABETES MELLITUS WITHOUT COMPLIC 06/28/2018 JERSEY HAQUE MD, Ot E78.00 PURE HYPERCHOLESTEROLEMIA, UNSPECIFIED 06/28/2018 JERSEY HAQUE MD, Ot F17.210 NICOTINE DEPENDENCE, CIGARETTES, UNCOMPL 06/28/2018 JERSEY HAQUE MD, Ot F31.9 BIPOLAR DISORDER, UNSPECIFIED 06/28/2018 JERSEY HAQUE MD, Ot F41.9 ANXIETY DISORDER, UNSPECIFIED 06/28/2018 JERSEY HAQUE MD, Ot F43.10 POST-TRAUMATIC STRESS DISORDER, UNSPECIF 06/28/2018 JERSEY HAQUE MD, Ot G40.909 EPILEPSY, UNSP, NOT INTRACTABLE, WITHOUT 06/28/2018 JERSEY HAQUE MD Ot I10 ESSENTIAL (PRIMARY) HYPERTENSION 06/28/2018 JERSEY HAQUE MD Ot I25.10 ATHSCL HEART DISEASE OF [place] CORONARY 06/28/2018 JERSEY HAQUE MD, Ot I25.2 OLD MYOCARDIAL INFARCTION 06/28/2018 JERSEY HAQUE MD Ot R07.9 CHEST PAIN, UNSPECIFIED 06/28/2018 JERSEY HAQUE MD Ot R91.8 OTHER NONSPECIFIC ABNORMAL FINDING OF [place] 06/28/2018 JERSEY HAQUE MD Ot Z79.4 HALF-WAY (CURRENT) USE OF INSULIN 06/28/2018 JERSEY HAQUE MD Ot Z79.82 WEB PRESS ROLL TENDER (CURRENT) USE OF ASPIRIN 06/28/2018 JERSEY HAQUE MD, Ot Z79.899 OTHER HALF-WAY (CURRENT) DRUG THERAPY 06/28/2018 JERSEY HAQUE MD, Ot Z86.19 PERSONAL HISTORY OF OTHER INFECTIOUS AND 06/28/2018 JERSEY HAQUE MD, Ot Z91.19 PATIENT'S NONCOMPLIANCE W [facility] 06/28/2018 JERSEY HAQUE MD Ot Z95.5 PRESENCE OF CORONARY ANGIOPLASTY IMPLANT 07/12/2018 MARIYA PETERSEN DO Ot E11.9 TYPE 2 DIABETES MELLITUS WITHOUT COMPLIC 07/12/2018 MARIYA PETERSEN DO Ot E78.00 PURE HYPERCHOLESTEROLEMIA, UNSPECIFIED 07/12/2018 MARIYA PETERSEN DO Ot F12.10 CANNABIS ABUSE, UNCOMPLICATED 07/12/2018 MARIYA PETERSEN DO Ot F15.10 OTHER STIMULANT ABUSE, UNCOMPLICATED 07/12/2018 MARIYA PETERSEN DO Ot F17.210 NICOTINE DEPENDENCE, CIGARETTES, UNCOMPL 07/12/2018 MARIYA PETERSEN DO Ot F31.9 BIPOLAR DISORDER, UNSPECIFIED 07/12/2018 MARIYA PETERSEN DO Ot F41.9 ANXIETY DISORDER, UNSPECIFIED 07/12/2018 MARIYA PETERSEN DO Ot F43.10 POST-TRAUMATIC STRESS DISORDER, UNSPECIF 07/12/2018 MARIYA PETERSEN DO Ot G40.909 EPILEPSY, UNSP, NOT INTRACTABLE, WITHOUT 07/12/2018 MARIYA PETERSEN DO Ot I10 ESSENTIAL (PRIMARY) HYPERTENSION 07/12/2018 MARIYA PETERSEN DO Ot I25.10 ATHSCL HEART DISEASE OF [place] CORONARY 07/12/2018 MARIYA PETERSEN DO Ot I25.2 OLD MYOCARDIAL INFARCTION 07/12/2018 MARIYA PETERSEN DO Ot J44.9 CHRONIC OBSTRUCTIVE PULMONARY DISEASE, U 07/12/2018 MARIYA PETERSEN DO Ot L02.214 CUTANEOUS ABSCESS OF GROIN 07/12/2018 MARIYA PETERSEN DO Ot L03.314 CELLULITIS OF GROIN 07/12/2018 MARIYA PETERSEN DO Ot Z21 ASYMPTOMATIC HUMAN IMMUNODEFICIENCY VIRU 07/12/2018 MARIYA PETERSEN DO Ot Z79.02 HALF-WAY (CURRENT) USE OF ANTITHROMBOTI 07/12/2018 MARIYA PETERSEN DO Ot Z79.4 HALF-WAY (CURRENT) USE OF INSULIN 07/12/2018 MARIYA PETERSEN DO Ot Z79.51 HALF-WAY (CURRENT) USE OF INHALED STERO 07/12/2018 MARIYA PETERSEN DO Ot Z79.82 HALF-WAY (CURRENT) USE OF ASPIRIN 07/12/2018 MARIYA PETERSEN DO Ot Z82.49 FAMILY HX OF ISCHEM HEART DIS AND OTH DI 07/12/2018 MARIYA PETERSEN DO Ot Z88.5 ALLERGY STATUS TO NARCOTIC AGENT STATUS 07/12/2018 MARIYA PETERSEN DO Ot Z88.6 ALLERGY STATUS TO ANALGESIC AGENT STATUS 07/12/2018 MARIYA PETERSEN DO Ot Z98.51 TUBAL LIGATION STATUS 07/12/2018 VERA HARKINS MD (U) Ot Z02.71 ENCOUNTER FOR DISABILITY DETERMINATION 07/12/2018 Maksim VASQUEZ MD Ot E11.9 TYPE 2 DIABETES MELLITUS WITHOUT COMPLIC 07/12/2018 Maksim VASQUEZ MD Ot I07.1 RHEUMATIC TRICUSPID INSUFFICIENCY 07/12/2018 Maksim VASQUEZ MD Ot I10 ESSENTIAL (PRIMARY) HYPERTENSION 07/12/2018 Maksim VASQUEZ MD Ot I25.10 ATHSCL HEART DISEASE OF [place] CORONARY 07/12/2018 Maksim VASQUEZ MD Ot I42.8 OTHER CARDIOMYOPATHIES 07/12/2018 Maksim VASQUEZ MD Ot Z72.0 TOBACCO USE 07/17/2018 MARIYA PETERSEN DO Ot E11.9 TYPE 2 DIABETES MELLITUS WITHOUT COMPLIC 07/17/2018 MARIYA PETERSEN DO Ot E78.00 PURE HYPERCHOLESTEROLEMIA, UNSPECIFIED 07/17/2018 MARIYA PETERSEN DO Ot F12.10 CANNABIS ABUSE, UNCOMPLICATED 07/17/2018 MARIYA PETERSEN DO Ot F15.10 OTHER STIMULANT ABUSE, UNCOMPLICATED 07/17/2018 MARIYA PETESREN DO Ot F17.210 NICOTINE DEPENDENCE, CIGARETTES, UNCOMPL 07/17/2018 MARIYA PETERSEN DO Ot F31.9 BIPOLAR DISORDER, UNSPECIFIED 07/17/2018 MARIYA PETERSEN DO Ot F41.9 ANXIETY DISORDER, UNSPECIFIED 07/17/2018 MARIYA PETERSEN DO Ot F43.10 POST-TRAUMATIC STRESS DISORDER, UNSPECIF 07/17/2018 MARIYA PETERSEN DO Ot G40.909 EPILEPSY, UNSP, NOT INTRACTABLE, WITHOUT 07/17/2018 MARIYA PETERSEN DO Ot I10 ESSENTIAL (PRIMARY) HYPERTENSION 07/17/2018 MARIYA PETERSEN DO Ot I25.10 ATHSCL HEART DISEASE OF [place] CORONARY 07/17/2018 MARIYA PETERSEN DO Ot I25.2 OLD MYOCARDIAL INFARCTION 07/17/2018 MARIYA PETERSEN DO Ot J44.9 CHRONIC OBSTRUCTIVE PULMONARY DISEASE, U 07/17/2018 MARIYA PETERSEN DO Ot L02.214 CUTANEOUS ABSCESS OF GROIN 07/17/2018 MARIYA PETERSEN DO Ot L03.314 CELLULITIS OF GROIN 07/17/2018 MARIYA PETERSEN DO Ot Z21 ASYMPTOMATIC HUMAN IMMUNODEFICIENCY VIRU 07/17/2018 MARIYA PETERSEN DO Ot Z79.02 HALF-WAY (CURRENT) USE OF ANTITHROMBOTI 07/17/2018 MARIYA PETERSEN DO Ot Z79.4 WEB PRESS ROLL TENDER (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) 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 OF INSULIN 07/17/2018 MARIYA PETERSEN DO Ot Z79.51 HALF-WAY (CURRENT) USE OF INHALED STERO 07/17/2018 MARIYA PETERSEN DO Ot Z79.82 HALF-WAY (CURRENT) USE OF ASPIRIN 07/17/2018 MARIYA PETERSEN DO Ot Z82.49 FAMILY HX OF ISCHEM HEART DIS AND OTH DI 07/17/2018 MARIYA PETERSEN DO Ot Z88.5 ALLERGY STATUS TO NARCOTIC AGENT STATUS 07/17/2018 MARIYA PETERSEN DO Ot Z88.6 ALLERGY STATUS TO ANALGESIC AGENT STATUS 07/17/2018 MARIYA PETERSEN DO Ot Z98.51 TUBAL LIGATION STATUS 07/19/2018 Ot B19.0 UNSPECIFIED VIRAL HEPATITIS WITH HEPATIC 07/19/2018 Ot F41.9 ANXIETY DISORDER, UNSPECIFIED 07/19/2018 Ot I25.10 ATHSCL HEART DISEASE OF [place] CORONARY 07/19/2018 Ot R07.81 PLEURODYNIA 07/19/2018 Ot R91.8 OTHER NONSPECIFIC ABNORMAL FINDING OF [place] 07/19/2018 Ot Z21 ASYMPTOMATIC HUMAN IMMUNODEFICIENCY VIRU 07/19/2018 Ot Z88.5 ALLERGY STATUS TO NARCOTIC AGENT STATUS 07/19/2018 Ot Z88.6 ALLERGY STATUS TO ANALGESIC AGENT STATUS 07/19/2018 Ot Z95.5 PRESENCE OF CORONARY ANGIOPLASTY IMPLANT 08/16/2018 NATE MULLER DO Ot B19.20 UNSPECIFIED VIRAL HEPATITIS C WITHOUT HE 08/16/2018 NATE MULLER DO Ot E11.9 TYPE 2 DIABETES MELLITUS WITHOUT COMPLIC 08/16/2018 NATE MULLER DO T Ot F15.10 OTHER STIMULANT ABUSE, UNCOMPLICATED 08/16/2018 NATE MULLER DO T Ot F32.9 MAJOR DEPRESSIVE DISORDER, SINGLE EPISOD 08/16/2018 NATE MULLER DO Ot F41.9 ANXIETY DISORDER, UNSPECIFIED 08/16/2018 NATE MULLER DO T Ot G40.909 EPILEPSY, UNSP, NOT INTRACTABLE, WITHOUT 08/16/2018 NATE MULLER DO T Ot H66.93 OTITIS MEDIA, UNSPECIFIED, BILATERAL 08/16/2018 NATE MULLER DO T Ot H92.03 OTALGIA, BILATERAL 08/16/2018 NATE MULLER DO T Ot I10 ESSENTIAL (PRIMARY) HYPERTENSION 08/16/2018 NATE MULLER DO Ot I25.2 OLD MYOCARDIAL INFARCTION 08/16/2018 NATE MULLER DO Ot J06.9 ACUTE UPPER RESPIRATORY INFECTION, UNSPE 08/16/2018 NATE MULLER DO T Ot J44.9 CHRONIC OBSTRUCTIVE PULMONARY DISEASE, U 08/16/2018 NATE MULLER DO T Ot Z21 ASYMPTOMATIC HUMAN IMMUNODEFICIENCY VIRU 08/16/2018 NATE MULLER DO Ot Z79.02 HALF-WAY (CURRENT) USE OF ANTITHROMBOTI 08/16/2018 NATE MULLER DO Ot Z79.4 HALF-WAY (CURRENT) USE OF INSULIN 08/16/2018 NATE MULLER DO Ot Z79.82 WEB PRESS ROLL TENDER (CURRENT) USE OF ASPIRIN 08/16/2018 NATE MULLER DO T Ot Z82.49 FAMILY HX OF ISCHEM HEART DIS AND OTH DI 08/16/2018 NATE MULLER DO Ot Z88.5 ALLERGY STATUS TO NARCOTIC AGENT STATUS 08/16/2018 NATE MULLER DO Ot Z88.6 ALLERGY STATUS TO ANALGESIC AGENT STATUS 08/16/2018 NATE MULLER DO T Ot Z95.5 PRESENCE OF CORONARY ANGIOPLASTY IMPLANT 08/21/2018 NATE MULLER DO Ot B19.20 UNSPECIFIED VIRAL HEPATITIS C WITHOUT HE 08/21/2018 NATE MULLER DO T Ot E11.9 TYPE 2 DIABETES MELLITUS WITHOUT COMPLIC 08/21/2018 NATE MULLER DO T Ot F15.10 OTHER STIMULANT ABUSE, UNCOMPLICATED 08/21/2018 NATE MULLER DO T Ot F32.9 MAJOR DEPRESSIVE DISORDER, SINGLE EPISOD 08/21/2018 JB MULLER DOED T Ot F41.9 ANXIETY DISORDER, UNSPECIFIED 08/21/2018 JB MULLER DOED T Ot G40.909 EPILEPSY, UNSP, NOT INTRACTABLE, WITHOUT 08/21/2018 JB MULLER DOED T Ot H66.93 OTITIS MEDIA, UNSPECIFIED, BILATERAL 08/21/2018 NATE MULLER DO T Ot H92.03 OTALGIA, BILATERAL 08/21/2018 JB MULLER DOED T Ot I10 ESSENTIAL (PRIMARY) HYPERTENSION 08/21/2018 NATE MULLER DO T Ot I25.2 OLD MYOCARDIAL INFARCTION 08/21/2018 NATE MULLER DO T Ot J06.9 ACUTE UPPER RESPIRATORY INFECTION, UNSPE 08/21/2018 JB MULLER DOED T Ot J44.9 CHRONIC OBSTRUCTIVE PULMONARY DISEASE, U 08/21/2018 NATE MULLER DO Ot Z21 ASYMPTOMATIC HUMAN IMMUNODEFICIENCY VIRU 08/21/2018 NATE MULLER DO T Ot Z79.02 HALF-WAY (CURRENT) USE OF ANTITHROMBOTI 08/21/2018 NATE MULLER DO T Ot Z79.4 HALF-WAY (CURRENT) USE OF INSULIN 08/21/2018 NATE MULLER DO T Ot Z79.82 WEB PRESS ROLL TENDER (CURRENT) USE OF ASPIRIN 08/21/2018 NATE MULLER DO T Ot Z82.49 FAMILY HX OF ISCHEM HEART DIS AND OTH DI 08/21/2018 NATE MULLER DO Ot Z88.5 ALLERGY STATUS TO NARCOTIC AGENT STATUS 08/21/2018 NATE MULLER DO T Ot Z88.6 ALLERGY STATUS TO ANALGESIC AGENT STATUS 08/21/2018 NATE MULLER DO T Ot Z95.5 PRESENCE OF CORONARY ANGIOPLASTY IMPLANT 08/23/2018 MARE BAILEY APRN Ot J45.909 UNSPECIFIED ASTHMA, UNCOMPLICATED 08/23/2018 MARE BAILEY ASSISTANT CENTER MANAGER Ot R91.1 SOLITARY PULMONARY NODULE 08/23/2018 MARE BAILEY APRN Ot Z72.0 TOBACCO USE 09/02/2018 MARE BAILEY APRN Ot J45.909 UNSPECIFIED ASTHMA, UNCOMPLICATED 09/02/2018 MARE BAILEY APRN Ot R91.1 SOLITARY PULMONARY NODULE 09/02/2018 MARE BAILEY APRN Ot Z72.0 TOBACCO USE 09/02/2018 CHAPARRO KELLEY MD Ot B19.20 UNSPECIFIED VIRAL HEPATITIS C WITHOUT HE 09/02/2018 CHAPARRO KELLEY MD Ot E11.9 TYPE 2 DIABETES MELLITUS WITHOUT COMPLIC 09/02/2018 CHAPARRO KELLEY MD Ot F12.10 CANNABIS ABUSE, UNCOMPLICATED 09/02/2018 CHAPARRO KELLEY MD Ot F15.10 OTHER STIMULANT ABUSE, UNCOMPLICATED 09/02/2018 CHAPARRO KELLEY MD J Ot F17.210 NICOTINE DEPENDENCE, CIGARETTES, UNCOMPL 09/02/2018 CHAPARRO KELLEY MD Ot F32.9 MAJOR DEPRESSIVE DISORDER, SINGLE EPISOD 09/02/2018 CHAPARRO KELLEY MD J Ot F41.9 ANXIETY DISORDER, UNSPECIFIED 09/02/2018 CHAPARRO KELLEY MD Ot G40.909 EPILEPSY, UNSP, NOT INTRACTABLE, WITHOUT 09/02/2018 CHAPARRO KELLEY MD Ot I25.2 OLD MYOCARDIAL INFARCTION 09/02/2018 CHAPARRO KELLEY MD Ot J44.9 CHRONIC OBSTRUCTIVE PULMONARY DISEASE, U 09/02/2018 CHAPARRO KELLEY MD Ot K27.9 PEPTIC ULC, SITE UNSP, UNSP AC OR CHR 09/02/2018 ALLIE MD, CHAPARRO J Ot R07.9 CHEST PAIN, UNSPECIFIED 09/02/2018 CHAPARRO KELLEY MD Ot Z21 ASYMPTOMATIC HUMAN IMMUNODEFICIENCY VIRU 09/02/2018 CHAPARRO KELLEY MD Ot Z79.02 HALF-WAY (CURRENT) USE OF ANTITHROMBOTI 09/02/2018 CHAPARRO KELLEY MD Ot Z79.4 HALF-WAY (CURRENT) USE OF INSULIN 09/02/2018 CHAPARRO KELLEY MD Ot Z79.82 WEB PRESS ROLL TENDER (CURRENT) USE OF ASPIRIN 09/02/2018 CHAPARRO KELLEY MD Ot Z82.49 FAMILY HX OF ISCHEM HEART DIS AND OTH DI 09/02/2018 CHAPARRO KELLEY MD Ot Z88.5 ALLERGY STATUS TO NARCOTIC AGENT STATUS 09/02/2018 CHAPARRO KELLEY MD Ot Z88.8 ALLERGY STATUS TO OTH DRUG/MEDS/BIOL SUB 09/02/2018 CHAPARRO KELLEY MD Ot Z95.5 PRESENCE OF CORONARY ANGIOPLASTY IMPLANT 09/04/2018 CHAPARRO KELLEY MD Ot B19.20 UNSPECIFIED VIRAL HEPATITIS C WITHOUT HE 09/04/2018 CHAPARRO KELLEY MD Ot E11.9 TYPE 2 DIABETES MELLITUS WITHOUT COMPLIC 09/04/2018 CHAPARRO KELLEY MD Ot F12.10 CANNABIS ABUSE, UNCOMPLICATED 09/04/2018 CHAPARRO KELLEY MD Ot F15.10 OTHER STIMULANT ABUSE, UNCOMPLICATED 09/04/2018 CHAPARRO KELLEY MD Ot F17.210 NICOTINE DEPENDENCE, CIGARETTES, UNCOMPL 09/04/2018 CHAPARRO KELLEY MD Ot F32.9 MAJOR DEPRESSIVE DISORDER, SINGLE EPISOD 09/04/2018 CHAPARRO KELLEY MD Ot F41.9 ANXIETY DISORDER, UNSPECIFIED 09/04/2018 CHAPARRO KELLEY MD Ot G40.909 EPILEPSY, UNSP, NOT INTRACTABLE, WITHOUT 09/04/2018 CHAPARRO KELLEY MD Ot I25.2 OLD MYOCARDIAL INFARCTION 09/04/2018 CHAPARRO KELLEY MD Ot J44.9 CHRONIC OBSTRUCTIVE PULMONARY DISEASE, U 09/04/2018 CHAPARRO KELLEY MD Ot K27.9 PEPTIC ULC, SITE UNSP, UNSP AC OR CHR 09/04/2018 CHAPARRO KELLEY MD Ot R07.9 CHEST PAIN, UNSPECIFIED 09/04/2018 CHAPARRO KELLEY MD, Ot Z21 ASYMPTOMATIC HUMAN IMMUNODEFICIENCY VIRU 09/04/2018 CHAPARRO KELLEY MD, Ot Z79.02 WEB PRESS ROLL TENDER (CURRENT) USE OF ANTITHROMBOTI 09/04/2018 CHAPARRO KELLEY MD, Ot Z79.4 HALF-WAY (CURRENT) USE OF INSULIN 09/04/2018 CHAPARRO KELLEY MD, Ot Z79.82 HALF-WAY (CURRENT) USE OF ASPIRIN 09/04/2018 CHAPARRO KELLEY MD, Ot Z82.49 FAMILY HX OF ISCHEM HEART DIS AND OTH DI 09/04/2018 CHAPARRO KELLEY MD, Ot Z88.5 ALLERGY STATUS TO NARCOTIC AGENT STATUS 09/04/2018 CHAPARRO KELLEY MD, Ot Z88.8 ALLERGY STATUS TO OTH DRUG/MEDS/BIOL SUB 09/04/2018 CHAPARRO KELLEY MD, Ot Z95.5 PRESENCE OF CORONARY ANGIOPLASTY IMPLANT 09/17/2018 JERSEY HAQUE MD, Ot B19.20 UNSPECIFIED VIRAL HEPATITIS C WITHOUT HE 09/17/2018 JERSEY HAQUE MD, Ot B20 HUMAN IMMUNODEFICIENCY VIRUS [HIV] DISEA 09/17/2018 JERSEY HAQUE MD, Ot E11.9 TYPE 2 DIABETES MELLITUS WITHOUT COMPLIC 09/17/2018 JERSEY HAQUE MD, Ot F32.9 MAJOR DEPRESSIVE DISORDER, SINGLE EPISOD 09/17/2018 JERSEY HAQUE MD, Ot F41.9 ANXIETY DISORDER, UNSPECIFIED 09/17/2018 JERSEY HAQUE MD, Ot G40.909 EPILEPSY, UNSP, NOT INTRACTABLE, WITHOUT 09/17/2018 JERSEY HAQUE MD Ot I25.2 OLD MYOCARDIAL INFARCTION 09/17/2018 JERSEY HAQUE MD, Ot J44.9 CHRONIC OBSTRUCTIVE PULMONARY DISEASE, U 09/17/2018 JERSEY HAQUE MD, Ot M19.90 UNSPECIFIED OSTEOARTHRITIS, UNSPECIFIED 09/17/2018 JERSEY HAQUE MD Ot M50.20 OTHER CERVICAL DISC DISPLACEMENT, UNSP C 09/17/2018 JERSEY HAQUE MD Ot R10.9 UNSPECIFIED ABDOMINAL PAIN 09/17/2018 JERSEY HAQUE MD, Ot Z79.4 HALF-WAY (CURRENT) USE OF INSULIN 09/17/2018 SHABNAM MD, JERSEY N Ot Z95.5 PRESENCE OF CORONARY ANGIOPLASTY IMPLANT 09/17/2018 JERSEY HAQUE MD Ot B19.20 UNSPECIFIED VIRAL HEPATITIS C WITHOUT HE 09/17/2018 JERSEY HAQUE MD Ot B20 HUMAN IMMUNODEFICIENCY VIRUS [HIV] DISEA 09/17/2018 JERSEY HAQUE MD Ot E11.9 TYPE 2 DIABETES MELLITUS WITHOUT COMPLIC 09/17/2018 JERSEY HAQUE MD Ot F32.9 MAJOR DEPRESSIVE DISORDER, SINGLE EPISOD 09/17/2018 JERSEY HAQUE MD Ot F41.9 ANXIETY DISORDER, UNSPECIFIED 09/17/2018 JERSEY HAQUE MD Ot G40.909 EPILEPSY, UNSP, NOT INTRACTABLE, WITHOUT 09/17/2018 JERSEY HAQUE MD Ot I25.2 OLD MYOCARDIAL INFARCTION 09/17/2018 JERSEY HAQUE MD Ot J44.9 CHRONIC OBSTRUCTIVE PULMONARY DISEASE, U 09/17/2018 JERSEY HAQUE MD Ot M19.90 UNSPECIFIED OSTEOARTHRITIS, UNSPECIFIED 09/17/2018 JERSEY HAQUE MD Ot M50.20 OTHER CERVICAL DISC DISPLACEMENT, UNSP C 09/17/2018 JERSEY HAQUE MD Ot R10.9 UNSPECIFIED ABDOMINAL PAIN 09/17/2018 JERSEY HAQUE MD Ot Z79.4 WEB PRESS ROLL TENDER (CURRENT) USE OF INSULIN 09/17/2018 JERSEY HAQUE MD Ot Z95.5 PRESENCE OF CORONARY ANGIOPLASTY IMPLANT 09/17/2018 JERSEY HAQUE MD Ot B19.20 UNSPECIFIED VIRAL HEPATITIS C WITHOUT HE 09/17/2018 JERSEY HAQUE MD Ot B20 HUMAN IMMUNODEFICIENCY VIRUS [HIV] DISEA 09/17/2018 JERSEY HAQUE MD Ot E11.9 TYPE 2 DIABETES MELLITUS WITHOUT COMPLIC 09/17/2018 JERSEY HAQUE MD Ot F32.9 MAJOR DEPRESSIVE DISORDER, SINGLE EPISOD 09/17/2018 JERSEY HAQUE MD Ot F41.9 ANXIETY DISORDER, UNSPECIFIED 09/17/2018 JERSEY HAQUE MD Ot G40.909 EPILEPSY, UNSP, NOT INTRACTABLE, WITHOUT 09/17/2018 JERSEY HAQUE MD Ot I25.2 OLD MYOCARDIAL INFARCTION 09/17/2018 EJRSEY HAQUE MD Ot J44.9 CHRONIC OBSTRUCTIVE PULMONARY DISEASE, U 09/17/2018 JERSEY HAQUE MD Ot M19.90 UNSPECIFIED OSTEOARTHRITIS, UNSPECIFIED 09/17/2018 JERSEY HAQUE MD Ot M50.20 OTHER CERVICAL DISC DISPLACEMENT, UNSP C 09/17/2018 JERSEY HAQUE MD Ot R10.9 UNSPECIFIED ABDOMINAL PAIN 09/17/2018 JERSEY HAQUE MD Ot Z79.4 HALF-WAY (CURRENT) USE OF INSULIN 09/17/2018 JERSEY HAQUE MD Ot Z95.5 PRESENCE OF CORONARY ANGIOPLASTY IMPLANT 09/17/2018 JERSEY HAQUE MD Ot B19.20 UNSPECIFIED VIRAL HEPATITIS C WITHOUT HE 09/17/2018 JERSEY HAQUE MD Ot B20 HUMAN IMMUNODEFICIENCY VIRUS [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 09/17/2018 JERSEY HAQUE MD Ot E11.9 TYPE 2 DIABETES MELLITUS WITHOUT COMPLIC 09/17/2018 JERSEY HAQUE MD Ot F32.9 MAJOR DEPRESSIVE DISORDER, SINGLE EPISOD 09/17/2018 JERSEY HAQUE MD Ot F41.9 ANXIETY DISORDER, UNSPECIFIED 09/17/2018 JERSEY HAQUE MD Ot G40.909 EPILEPSY, UNSP, NOT INTRACTABLE, WITHOUT 09/17/2018 JERSEY HAQUE MD Ot I25.2 OLD MYOCARDIAL INFARCTION 09/17/2018 JERSEY HAQUE MD Ot J44.9 CHRONIC OBSTRUCTIVE PULMONARY DISEASE, U 09/17/2018 JERSEY HAQUE MD Ot M19.90 UNSPECIFIED OSTEOARTHRITIS, UNSPECIFIED 09/17/2018 JERSEY HAQUE MD Ot M50.20 OTHER CERVICAL DISC DISPLACEMENT, UNSP C 09/17/2018 JERSEY HAQUE MD Ot R10.9 UNSPECIFIED ABDOMINAL PAIN 09/17/2018 JERSEY HAQUE MD Ot Z79.4 WEB PRESS ROLL TENDER (CURRENT) USE OF INSULIN 09/17/2018 JERSEY HAQUE MD Ot Z95.5 PRESENCE OF CORONARY ANGIOPLASTY IMPLANT 09/17/2018 JERSEY HAQUE MD Ot B19.20 UNSPECIFIED VIRAL HEPATITIS C WITHOUT HE 09/17/2018 JERSEY HAQUE MD Ot B20 HUMAN IMMUNODEFICIENCY VIRUS [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 09/17/2018 JERSEY HAQUE MD, Ot E11.9 TYPE 2 DIABETES MELLITUS WITHOUT COMPLIC 09/17/2018 JERSEY HAQUE MD Ot F12.90 CANNABIS USE, UNSPECIFIED, UNCOMPLICATED 09/17/2018 JERSEY HAQUE MD Ot F17.210 NICOTINE DEPENDENCE, CIGARETTES, UNCOMPL 09/17/2018 JERSEY HAQUE MD Ot F32.9 MAJOR DEPRESSIVE DISORDER, SINGLE EPISOD 09/17/2018 JERSEY HAQUE MD Ot F41.9 ANXIETY DISORDER, UNSPECIFIED 09/17/2018 JERSEY HAQUE MD, Ot G40.909 EPILEPSY, UNSP, NOT INTRACTABLE, WITHOUT 09/17/2018 JERSEY HAQUE MD, Ot I25.2 OLD MYOCARDIAL INFARCTION 09/17/2018 JERSEY HAQUE MD, Ot J44.9 CHRONIC OBSTRUCTIVE PULMONARY DISEASE, U 09/17/2018 JERSEY HAQUE MD Ot K85.90 ACUTE PANCREATITIS WITHOUT NECROSIS OR I 09/17/2018 JERSEY HAQUE MD Ot M19.91 PRIMARY OSTEOARTHRITIS, UNSPECIFIED SITE 09/17/2018 JERSEY HAQUE MD, Ot M50.20 OTHER CERVICAL DISC DISPLACEMENT, UNSP C 09/17/2018 JERSEY HAQUE MD Ot Z79.4 WEB PRESS ROLL TENDER (CURRENT) USE OF INSULIN 09/17/2018 JERSEY HAQUE MD Ot Z90.49 ACQUIRED ABSENCE OF OTHER SPECIFIED PART 09/17/2018 JERSEY HAQUE MD Ot Z95.5 PRESENCE OF CORONARY ANGIOPLASTY IMPLANT 09/17/2018 JERSEY HAQUE MD Ot B19.20 UNSPECIFIED VIRAL HEPATITIS C WITHOUT HE 09/17/2018 JERSEY HAQUE MD Ot B20 HUMAN IMMUNODEFICIENCY VIRUS [HIV] DISEA 09/17/2018 JERSEY HAQUE MD Ot E11.9 TYPE 2 DIABETES MELLITUS WITHOUT COMPLIC 09/17/2018 JERSEY HAQUE MD Ot F12.90 CANNABIS USE, UNSPECIFIED, UNCOMPLICATED 09/17/2018 JERSEY HAQUE MD Ot F17.210 NICOTINE DEPENDENCE, CIGARETTES, UNCOMPL 09/17/2018 JERSEY HAQUE MD Ot F32.9 MAJOR DEPRESSIVE DISORDER, SINGLE EPISOD 09/17/2018 JERSEY HAQUE MD Ot F41.9 ANXIETY DISORDER, UNSPECIFIED 09/17/2018 JERSEY HAQUE MD Ot G40.909 EPILEPSY, UNSP, NOT INTRACTABLE, WITHOUT 09/17/2018 JERSEY HAQUE MD Ot I25.2 OLD MYOCARDIAL INFARCTION 09/17/2018 JERSEY HAQUE MD, Ot J44.9 CHRONIC OBSTRUCTIVE PULMONARY DISEASE, U 09/17/2018 JERSEY HAQUE MD Ot K85.90 ACUTE PANCREATITIS WITHOUT NECROSIS OR I 09/17/2018 JERSEY HAQUE MD, Ot M19.90 UNSPECIFIED OSTEOARTHRITIS, UNSPECIFIED 09/17/2018 JERSEY HAQUE MD, Ot M19.91 PRIMARY OSTEOARTHRITIS, UNSPECIFIED SITE 09/17/2018 JERSEY HAQUE MD, Ot M50.20 OTHER CERVICAL DISC DISPLACEMENT, UNSP C 09/17/2018 JERSEY HAQUE MD Ot R10.9 UNSPECIFIED ABDOMINAL PAIN 09/17/2018 JERSEY HAQUE MD Ot Z79.4 WEB PRESS ROLL TENDER (CURRENT) USE OF INSULIN 09/17/2018 JERSEY HAQUE MD Ot Z90.49 ACQUIRED ABSENCE OF OTHER SPECIFIED PART 09/17/2018 JERSEY HAQUE MD Ot Z95.5 PRESENCE OF CORONARY ANGIOPLASTY IMPLANT 10/30/2018 MALLORIE LAWS MD Ot E11.9 TYPE 2 DIABETES MELLITUS WITHOUT COMPLIC 10/30/2018 MALLORIE LAWS MD Ot E78.00 PURE HYPERCHOLESTEROLEMIA, UNSPECIFIED 10/30/2018 MALLORIE LAWS MD Ot F12.10 CANNABIS ABUSE, UNCOMPLICATED 10/30/2018 MALLORIE LAWS MD Ot F15.10 OTHER STIMULANT ABUSE, UNCOMPLICATED 10/30/2018 MALLORIE LAWS MD Ot F17.210 NICOTINE DEPENDENCE, CIGARETTES, UNCOMPL 10/30/2018 MALLORIE LASW MD Ot F31.9 BIPOLAR DISORDER, UNSPECIFIED 10/30/2018 MALLORIE LAWS MD, Ot F41.9 ANXIETY DISORDER, UNSPECIFIED 10/30/2018 MALLORIE LAWS MD Ot F43.10 POST-TRAUMATIC STRESS DISORDER, UNSPECIF 10/30/2018 MALLORIE LAWS MD Ot G40.909 EPILEPSY, UNSP, NOT INTRACTABLE, WITHOUT 10/30/2018 MALLORIE LAWS MD, Ot I21.9 ACUTE MYOCARDIAL INFARCTION, UNSPECIFIED 10/30/2018 MALLORIE LAWS MD, Ot J44.9 CHRONIC OBSTRUCTIVE PULMONARY DISEASE, U 10/30/2018 MALLORIE LAWS MD Ot R07.89 OTHER CHEST PAIN 10/30/2018 MALLORIE LAWS MD, Ot Z21 ASYMPTOMATIC HUMAN IMMUNODEFICIENCY VIRU 10/30/2018 MALLORIE LAWS MD, Ot Z79.4 WEB PRESS ROLL TENDER (CURRENT) USE OF INSULIN 10/30/2018 MALLORIE LAWS MD, Ot Z82.49 FAMILY HX OF ISCHEM HEART DIS AND OTH DI 10/30/2018 MALLORIE LAWS MD, Ot Z88.5 ALLERGY STATUS TO NARCOTIC AGENT STATUS 10/30/2018 MALLORIE LAWS MD, Ot Z88.6 ALLERGY STATUS TO ANALGESIC AGENT STATUS 10/30/2018 MALLORIE LAWS MD, Ot Z98.51 TUBAL LIGATION STATUS 11/05/2018 Maksim VASQUEZ MD Ot E11.9 TYPE 2 DIABETES MELLITUS WITHOUT COMPLIC 11/05/2018 Maksim VASQUEZ MD Ot I07.1 RHEUMATIC TRICUSPID INSUFFICIENCY 11/05/2018 Maksim VASQUEZ MD Ot I10 ESSENTIAL (PRIMARY) HYPERTENSION 11/05/2018 Maksim VASQUEZ MD Ot I25.10 ATHSCL HEART DISEASE OF [place] CORONARY 11/05/2018 Maksim VASQUEZ MD Ot I42.8 OTHER CARDIOMYOPATHIES 11/05/2018 Maksim VASQUEZ MD Ot Z72.0 TOBACCO USE Procedures Code Description Performed By Performed On [id number] DILATION OF 1 COR ART WITH DRUG-ELUT INT 05/05/2018 [id number] MEASURE OF CARDIAC SAMPL PRESSURE, L H 05/05/2018 [id number] FLUOROSCOPY OF MULT COR ART USING L OSM 05/05/2018 [id number] FLUOROSCOPY OF LEFT HEART USING LOW OSMO 05/05/2018 [id number] FLUOROSCOPY OF AORTA, BI LE ART USING L 05/05/2018 Results Test Result Range Capillary blood glucose measurement by glucometer (mass/volume) - 08/14/16 11:56 Capillary blood glucose measurement by glucometer (mass/volume) 145 mg/dL 70-110 Complete blood count (CBC) with automated white blood cell (WBC) differential - 10/18/17 12:55 Blood leukocytes automated count (number/volume) 7.5 10*3/uL 4.3-11.0 Blood erythrocytes automated count (number/volume) 5.07 10*6/uL 4.35-5.85 Venous blood hemoglobin measurement (mass/volume) 15.0 g/dL 11.5-16.0 Blood hematocrit (volume fraction) 43 % 35-52 Automated erythrocyte mean corpuscular volume 84 [foz_us] 80-99 Automated erythrocyte mean corpuscular hemoglobin (mass per erythrocyte) 30 pg 25-34 Automated erythrocyte mean corpuscular hemoglobin concentration measurement (mass/volume) 35 g/dL 32-36 Automated erythrocyte distribution width ratio 13.0 % 10.0- 14.5 Automated blood platelet count (count/volume) 253 10*3/uL 130-400 Automated blood platelet mean volume measurement 10.4 [foz_us] 7.4-10.4 Automated blood neutrophils/100 leukocytes 55 % 42-75 Automated blood lymphocytes/100 leukocytes 35 % 12-44 Blood monocytes/100 leukocytes 8 % 0-12 Automated blood eosinophils/100 leukocytes 2 % 0-10 Automated blood basophils/100 leukocytes 0 % 0-10 Blood neutrophils automated count (number/volume) 4.2 10*3 1.8-7.8 Blood lymphocytes automated count (number/volume) 2.6 10*3 1.0-4.0 Blood monocytes automated count (number/volume) 0.6 10*3 0.0- 1.0 Automated eosinophil count 0.1 10*3/uL 0.0-0.3 Automated blood basophil count (count/volume) 0.0 10*3/uL 0.0-0.1 Comprehensive metabolic panel - 10/18/17 12:55 Serum or plasma sodium measurement (moles/volume) 137 mmol/L 135-145 Serum or plasma potassium measurement (moles/volume) 4.5 mmol/L 3.6-5.0 Serum or plasma chloride measurement (moles/volume) 103 mmol/L 98-107 Carbon dioxide 25 mmol/L 21-32 Serum or plasma anion gap determination (moles/volume) 9 mmol/L 5-14 Serum or plasma urea nitrogen measurement (mass/volume) 11 mg/dL 7-18 Serum or plasma creatinine measurement (mass/volume) 0.68 mg/dL 0.60-1.30 Serum or plasma urea nitrogen/creatinine mass ratio 16 NRG Serum or plasma creatinine measurement with calculation of estimated glomerular filtration rate > NRG Serum or plasma glucose measurement (mass/volume) 212 mg/dL 70-105 Serum or plasma calcium measurement (mass/volume) 9.7 mg/dL 8.5-10.1 Serum or plasma total bilirubin measurement (mass/volume) 0.6 mg/dL 0.1-1.0 Serum or plasma alkaline phosphatase measurement (enzymatic activity/volume) 79 U/L 40-136 Serum or plasma aspartate aminotransferase measurement (enzymatic activity/volume) 11 U/L 5-34 Serum or plasma alanine aminotransferase measurement (enzymatic activity/volume) 16 U/L 0-55 Serum or plasma protein measurement (mass/volume) 7.8 g/dL 6.4-8.2 Serum or plasma albumin measurement (mass/volume) 4.2 g/dL 3.2-4.5 Complete urinalysis with reflex to culture - 10/18/17 13:10 Urine color determination YELLOW NRG Urine clarity determination CLEAR NRG Urine pH measurement by test strip 6.5 5-9 Specific gravity of urine by test strip 1.015 1.016-1.022 Urine protein assay by test strip, semi-quantitative 1+ NEGATIVE Urine glucose detection by automated test strip 3+ NEGATIVE Erythrocytes detection in urine sediment by light microscopy NEGATIVE NEGATIVE Urine ketones detection by automated test strip NEGATIVE NEGATIVE Urine nitrite detection by test strip NEGATIVE NEGATIVE Urine total bilirubin detection by test strip NEGATIVE NEGATIVE Urine urobilinogen measurement by automated test strip (mass/volume) NORMAL NORMAL Urine leukocyte esterase detection by dipstick 1+ NEGATIVE Automated urine sediment erythrocyte count by microscopy (number/high power field) RARE NRG Automated urine sediment leukocyte count by microscopy (number/high power field) RARE NRG Bacteria detection in urine sediment by light microscopy NEGATIVE NRG Squamous epithelial cells detection in urine sediment by light microscopy 5-10 NRG Crystals detection in urine sediment by light microscopy NONE NRG Casts detection in urine sediment by light microscopy NONE NRG Mucus detection in urine sediment by light microscopy SMALL NRG Complete urinalysis with reflex to culture NO NRG Complete urinalysis with reflex to culture - 11/17/17 20:48 Urine color determination YELLOW NRG Urine clarity determination CLEAR NRG Urine pH measurement by test strip 7 5-9 Specific gravity of urine by test strip 1.010 1.016-1.022 Urine protein assay by test strip, semi-quantitative NEGATIVE NEGATIVE Urine glucose detection by automated test strip 4+ NEGATIVE Erythrocytes detection in urine sediment by light microscopy NEGATIVE NEGATIVE Urine ketones detection by automated test strip NEGATIVE NEGATIVE Urine nitrite detection by test strip NEGATIVE NEGATIVE Urine total bilirubin detection by test strip NEGATIVE NEGATIVE Urine urobilinogen measurement by automated test strip (mass/volume) NORMAL NORMAL Urine leukocyte esterase detection by dipstick NEGATIVE NEGATIVE Automated urine sediment erythrocyte count by microscopy (number/high power field) RARE NRG Automated urine sediment leukocyte count by microscopy (number/high power field) RARE NRG Bacteria detection in urine sediment by light microscopy NEGATIVE NRG Squamous epithelial cells detection in urine sediment by light microscopy 0-2 NRG Crystals detection in urine sediment by light microscopy NONE NRG Casts detection in urine sediment by light microscopy NONE NRG Mucus detection in urine sediment by light microscopy NEGATIVE NRG Complete urinalysis with reflex to culture NO NRG Renal epithelial cells detection in urine sediment by light microscopy NONE NRG Streptococcus pyogenes antigen detection - 11/17/17 20:48 Streptococcus pyogenes antigen detection NEGATIVE NEGATIVE Urine drug screening test - 11/17/17 20:48 Urine phencyclidine detection by screening method NEGATIVE NEGATIVE Urine benzodiazepines detection by screening method NEGATIVE NEGATIVE Urine cocaine detection NEGATIVE NEGATIVE Urine amphetamines detection by screening method NEGATIVE NEGATIVE Urine methamphetamine detection by screening method NEGATIVE NEGATIVE Urine cannabinoids detection by screening method NEGATIVE NEGATIVE Urine opiates detection by screening method NEGATIVE NEGATIVE Urine barbiturates detection NEGATIVE NEGATIVE Screening urine tricyclic antidepressants detection NEGATIVE NEGATIVE Urine methadone detection by screening method NEGATIVE NEGATIVE Urine oxycodone detection NEGATIVE NEGATIVE Urine propoxyphene detection NEGATIVE NEGATIVE Bacterial throat culture - 11/17/17 20:48 Bacterial throat culture NBS NRG Complete blood count (CBC) with automated white blood cell (WBC) differential - 11/17/17 20:50 Blood leukocytes automated count (number/volume) 12.0 10*3/uL 4.3-11.0 Blood erythrocytes automated count (number/volume) 4.68 10*6/uL 4.35-5.85 Venous blood hemoglobin measurement (mass/volume) 14.0 g/dL 11.5-16.0 Blood hematocrit (volume fraction) 39 % 35-52 Automated erythrocyte mean corpuscular volume 84 [foz_us] 80-99 Automated erythrocyte mean corpuscular hemoglobin (mass per erythrocyte) 30 pg 25-34 Automated erythrocyte mean corpuscular hemoglobin concentration measurement (mass/volume) 36 g/dL 32-36 Automated erythrocyte distribution width ratio 13.3 % 10.0- 14.5 Automated blood platelet count (count/volume) 264 10*3/uL 130-400 Automated blood platelet mean volume measurement 10.6 [foz_us] 7.4-10.4 Automated blood neutrophils/100 leukocytes 68 % 42-75 Automated blood lymphocytes/100 leukocytes 26 % 12-44 Blood monocytes/100 leukocytes 6 % 0-12 Automated blood eosinophils/100 leukocytes 0 % 0-10 Automated blood basophils/100 leukocytes 0 % 0-10 Blood neutrophils automated count (number/volume) 8.1 10*3 1.8-7.8 Blood lymphocytes automated count (number/volume) 3.2 10*3 1.0-4.0 Blood monocytes automated count (number/volume) 0.7 10*3 0.0- 1.0 Automated eosinophil count 0.0 10*3/uL 0.0-0.3 Automated blood basophil count (count/volume) 0.0 10*3/uL 0.0-0.1 Serum heterophile antibody titer - 11/17/17 20:50 Serum heterophile antibody titer NEGATIVE NEGATIVE Serum or plasma choriogonadotropin ( test) detection - 11/17/17 20:50 Serum or plasma choriogonadotropin ( test) detection NEGATIVE NEGATIVE Comprehensive metabolic panel - 11/17/17 20:50 Serum or plasma sodium measurement (moles/volume) 133 mmol/L 135-145 Serum or plasma potassium measurement (moles/volume) 4.5 mmol/L 3.6-5.0 Serum or plasma chloride measurement (moles/volume) 98 mmol/L 98-107 Carbon dioxide 21 mmol/L 21-32 Serum or plasma anion gap determination (moles/volume) 14 mmol/L 5-14 Serum or plasma urea nitrogen measurement (mass/volume) 9 mg/dL 7-18 Serum or plasma creatinine measurement (mass/volume) 0.76 mg/dL 0.60-1.30 Serum or plasma urea nitrogen/creatinine mass ratio 12 NRG Serum or plasma creatinine measurement with calculation of estimated glomerular filtration rate > NRG Serum or plasma glucose measurement (mass/volume) 473 mg/dL 70-105 Serum or plasma calcium measurement (mass/volume) 10.0 mg/dL 8.5-10.1 Serum or plasma total bilirubin measurement (mass/volume) 0.4 mg/dL 0.1-1.0 Serum or plasma alkaline phosphatase measurement (enzymatic activity/volume) 79 U/L 40-136 Serum or plasma aspartate aminotransferase measurement (enzymatic activity/volume) 11 U/L 5-34 Serum or plasma alanine aminotransferase measurement (enzymatic activity/volume) 14 U/L 0-55 Serum or plasma protein measurement (mass/volume) 7.5 g/dL 6.4-8.2 Serum or plasma albumin measurement (mass/volume) 4.3 g/dL 3.2-4.5 Serum or plasma C reactive protein measurement (mass/volume) - 11/17/17 20:50 Serum or plasma C reactive protein measurement (mass/volume) 0.41 mg/dL 0.00-0.50 Blood lactic acid measurement (moles/volume) - 11/17/17 21:17 Blood lactic acid measurement (moles/volume) 2.12 mmol/L 0.50- 2.00 Complete blood count (CBC) with automated white blood cell (WBC) differential - 12/18/17 16:34 Blood leukocytes automated count (number/volume) 11.4 10*3/uL 4.3-11.0 Blood erythrocytes automated count (number/volume) 4.90 10*6/uL 4.35-5.85 Venous blood hemoglobin measurement (mass/volume) 14.2 g/dL 11.5-16.0 Blood hematocrit (volume fraction) 41 % 35-52 Automated erythrocyte mean corpuscular volume 85 [foz_us] 80-99 Automated erythrocyte mean corpuscular hemoglobin (mass per erythrocyte) 29 pg 25-34 Automated erythrocyte mean corpuscular hemoglobin concentration measurement (mass/volume) 34 g/dL 32-36 Automated erythrocyte distribution width ratio 13.5 % 10.0- 14.5 Automated blood platelet count (count/volume) 249 10*3/uL 130-400 Automated blood platelet mean volume measurement 11.1 [foz_us] 7.4-10.4 Automated blood neutrophils/100 leukocytes 70 % 42-75 Automated blood lymphocytes/100 leukocytes 21 % 12-44 Blood monocytes/100 leukocytes 9 % 0-12 Automated blood eosinophils/100 leukocytes 0 % 0-10 Automated blood basophils/100 leukocytes 0 % 0-10 Blood neutrophils automated count (number/volume) 8.0 10*3 1.8-7.8 Blood lymphocytes automated count (number/volume) 2.4 10*3 1.0-4.0 Blood monocytes automated count (number/volume) 1.0 10*3 0.0- 1.0 Automated eosinophil count 0.0 10*3/uL 0.0-0.3 Automated blood basophil count (count/volume) 0.0 10*3/uL 0.0-0.1 PT panel in platelet poor plasma by coagulation assay - 12/18/17 16:34 Prothrombin time (PT) in platelet poor plasma by coagulation assay 13.5 s 12.2-14.7 INR in platelet poor plasma or blood by coagulation assay 1.0 0.8-1.4 Activated partial thromboplastin time (aPTT) in platelet poor plasma bycoagulation assay - 12/18/17 16:34 Activated partial thromboplastin time (aPTT) in platelet poor plasma bycoagulation assay 24 s 24-35 Comprehensive metabolic panel - 12/18/17 16:34 Serum or plasma sodium measurement (moles/volume) 137 mmol/L 135-145 Serum or plasma potassium measurement (moles/volume) 4.0 mmol/L 3.6-5.0 Serum or plasma chloride measurement (moles/volume) 98 mmol/L 98-107 Carbon dioxide 26 mmol/L 21-32 Serum or plasma anion gap determination (moles/volume) 13 mmol/L 5-14 Serum or plasma urea nitrogen measurement (mass/volume) 13 mg/dL 7-18 Serum or plasma creatinine measurement (mass/volume) 0.72 mg/dL 0.60-1.30 Serum or plasma urea nitrogen/creatinine mass ratio 18 NRG Serum or plasma creatinine measurement with calculation of estimated glomerular filtration rate > NRG Serum or plasma glucose measurement (mass/volume) 313 mg/dL 70-105 Serum or plasma calcium measurement (mass/volume) 9.8 mg/dL 8.5-10.1 Serum or plasma total bilirubin measurement (mass/volume) 0.7 mg/dL 0.1-1.0 Serum or plasma alkaline phosphatase measurement (enzymatic activity/volume) 81 U/L 40-136 Serum or plasma aspartate aminotransferase measurement (enzymatic activity/volume) 73 U/L 5-34 Serum or plasma alanine aminotransferase measurement (enzymatic activity/volume) 25 U/L 0-55 Serum or plasma protein measurement (mass/volume) 7.4 g/dL 6.4-8.2 Serum or plasma albumin measurement (mass/volume) 4.3 g/dL 3.2-4.5 Magnesium - 12/18/17 16:34 Magnesium 1.9 mg/dL 1.8-2.4 Serum or plasma troponin i.cardiac measurement (mass/volume) - 12/18/17 16:34 Serum or plasma troponin i.cardiac measurement (mass/volume) 15.68 ng/mL <0.30 Myoglobin, serum - 12/18/17 16:34 Myoglobin, serum 347.7 ng/mL 10.0-92.0 Streptococcus pyogenes antigen detection - 04/09/18 13:57 Streptococcus pyogenes antigen detection NEGATIVE NEGATIVE Influenza virus A and B antigen detection - 04/09/18 13:57 FLU RESULT NEGATIVE FOR INFLUENZA A AND B ANTIGENS BY IA NR Bacterial throat culture - 04/09/18 13:57 Bacterial throat culture [facility] Complete blood count (CBC) with automated white blood cell (WBC) differential - 05/05/18 09:20 Blood leukocytes automated count (number/volume) 8.8 10*3/uL 4.3-11.0 Blood erythrocytes automated count (number/volume) 4.70 10*6/uL 4.35-5.85 Venous blood hemoglobin measurement (mass/volume) 14.1 g/dL 11.5-16.0 Blood hematocrit (volume fraction) 40 % 35-52 Automated erythrocyte mean corpuscular volume 85 [foz_us] 80-99 Automated erythrocyte mean corpuscular hemoglobin (mass per erythrocyte) 30 pg 25-34 Automated erythrocyte mean corpuscular hemoglobin concentration measurement (mass/volume) 35 g/dL 32-36 Automated erythrocyte distribution width ratio 13.9 % 10.0- 14.5 Automated blood platelet count (count/volume) 276 10*3/uL 130-400 Automated blood platelet mean volume measurement 10.9 [foz_us] 7.4-10.4 Automated blood neutrophils/100 leukocytes 59 % 42-75 Automated blood lymphocytes/100 leukocytes 32 % 12-44 Blood monocytes/100 leukocytes 8 % 0-12 Automated blood eosinophils/100 leukocytes 1 % 0-10 Automated blood basophils/100 leukocytes 0 % 0-10 Blood neutrophils automated count (number/volume) 5.2 10*3 1.8-7.8 Blood lymphocytes automated count (number/volume) 2.8 10*3 1.0-4.0 Blood monocytes automated count (number/volume) 0.7 10*3 0.0- 1.0 Automated eosinophil count 0.1 10*3/uL 0.0-0.3 Automated blood basophil count (count/volume) 0.0 10*3/uL 0.0-0.1 Comprehensive metabolic panel - 05/05/18 09:20 Serum or plasma sodium measurement (moles/volume) 131 mmol/L 135-145 Serum or plasma potassium measurement (moles/volume) 5.1 mmol/L 3.6-5.0 Serum or plasma chloride measurement (moles/volume) 95 mmol/L 98-107 Carbon dioxide 24 mmol/L 21-32 Serum or plasma anion gap determination (moles/volume) 12 mmol/L 5-14 Serum or plasma urea nitrogen measurement (mass/volume) 12 mg/dL 7-18 Serum or plasma creatinine measurement (mass/volume) 0.79 mg/dL 0.60-1.30 Serum or plasma urea nitrogen/creatinine mass ratio 15 NRG Serum or plasma creatinine measurement with calculation of estimated glomerular filtration rate > NRG Serum or plasma glucose measurement (mass/volume) 409 mg/dL 70-105 Serum or plasma calcium measurement (mass/volume) 9.4 mg/dL 8.5-10.1 Serum or plasma total bilirubin measurement (mass/volume) 0.5 mg/dL 0.1-1.0 Serum or plasma alkaline phosphatase measurement (enzymatic activity/volume) 74 U/L 40-136 Serum or plasma aspartate aminotransferase measurement (enzymatic activity/volume) 15 U/L 5-34 Serum or plasma alanine aminotransferase measurement (enzymatic activity/volume) 27 U/L 0-55 Serum or plasma protein measurement (mass/volume) 7.4 g/dL 6.4-8.2 Serum or plasma albumin measurement (mass/volume) 4.2 g/dL 3.2-4.5 CALCIUM CORRECTED 9.2 mg/dL 8.5-10.1 Serum or plasma troponin i.cardiac measurement (mass/volume) - 05/05/18 09:20 Serum or plasma troponin i.cardiac measurement (mass/volume) < ng/mL <0.30 Capillary blood glucose measurement by glucometer (mass/volume) - 05/05/18 11:56 Capillary blood glucose measurement by glucometer (mass/volume) 310 mg/dL 70-110 Capillary blood glucose measurement by glucometer (mass/volume) - 05/05/18 19:06 Capillary blood glucose measurement by glucometer (mass/volume) 253 mg/dL 70-110 Capillary blood glucose measurement by glucometer (mass/volume) - 05/05/18 20:56 Capillary blood glucose measurement by glucometer (mass/volume) 270 mg/dL 70-110 Automated blood complete blood count (hemogram) panel - 05/06/18 03:30 Blood leukocytes automated count (number/volume) 9.2 10*3/uL 4.3-11.0 Blood erythrocytes automated count (number/volume) 4.50 10*6/uL 4.35-5.85 Venous blood hemoglobin measurement (mass/volume) 13.3 g/dL 11.5-16.0 Blood hematocrit (volume fraction) 39 % 35-52 Automated erythrocyte mean corpuscular volume 87 [foz_us] 80-99 Automated erythrocyte mean corpuscular hemoglobin (mass per erythrocyte) 30 pg 25-34 Automated erythrocyte mean corpuscular hemoglobin concentration measurement (mass/volume) 34 g/dL 32-36 Automated erythrocyte distribution width ratio 14.2 % 10.0- 14.5 Automated blood platelet count (count/volume) 219 10*3/uL 130-400 Automated blood platelet mean volume measurement 10.7 [foz_us] 7.4-10.4 Serum or plasma phosphate measurement (mass/volume) - 05/06/18 03:30 Serum or plasma phosphate measurement (mass/volume) 3.0 mg/dL 2.3-4.7 Magnesium - 05/06/18 03:30 Magnesium 1.9 mg/dL 1.8-2.4 Whole blood basic metabolic panel - 05/06/18 03:30 Serum or plasma sodium measurement (moles/volume) 134 mmol/L 135-145 Serum or plasma potassium measurement (moles/volume) 4.4 mmol/L 3.6-5.0 Serum or plasma chloride measurement (moles/volume) 104 mmol/L 98-107 Carbon dioxide 19 mmol/L 21-32 Serum or plasma anion gap determination (moles/volume) 11 mmol/L 5-14 Serum or plasma urea nitrogen measurement (mass/volume) 11 mg/dL 7-18 Serum or plasma creatinine measurement (mass/volume) 0.67 mg/dL 0.60-1.30 Serum or plasma urea nitrogen/creatinine mass ratio 16 NRG Serum or plasma creatinine measurement with calculation of estimated glomerular filtration rate > NRG Serum or plasma glucose measurement (mass/volume) 253 mg/dL 70-105 Serum or plasma calcium measurement (mass/volume) 8.7 mg/dL 8.5-10.1 Serum or plasma troponin i.cardiac measurement (mass/volume) - 05/06/18 08:59 Serum or plasma troponin i.cardiac measurement (mass/volume) < ng/mL <0.30 Capillary blood glucose measurement by glucometer (mass/volume) - 05/06/18 09:21 Capillary blood glucose measurement by glucometer (mass/volume) 294 mg/dL 70-110 Complete blood count (CBC) with automated white blood cell (WBC) differential - 06/27/18 12:11 Blood leukocytes automated count (number/volume) 7.8 10*3/uL 4.3-11.0 Blood erythrocytes automated count (number/volume) 4.61 10*6/uL 4.35-5.85 Venous blood hemoglobin measurement (mass/volume) 13.8 g/dL 11.5-16.0 Blood hematocrit (volume fraction) 41 % 35-52 Automated erythrocyte mean corpuscular volume 88 [foz_us] 80-99 Automated erythrocyte mean corpuscular hemoglobin (mass per erythrocyte) 30 pg 25-34 Automated erythrocyte mean corpuscular hemoglobin concentration measurement (mass/volume) 34 g/dL 32-36 Automated erythrocyte distribution width ratio 13.7 % 10.0- 14.5 Automated blood platelet count (count/volume) 234 10*3/uL 130-400 Automated blood platelet mean volume measurement 11.1 [foz_us] 7.4-10.4 Automated blood neutrophils/100 leukocytes 57 % 42-75 Automated blood lymphocytes/100 leukocytes 33 % 12-44 Blood monocytes/100 leukocytes 8 % 0-12 Automated blood eosinophils/100 leukocytes 2 % 0-10 Automated blood basophils/100 leukocytes 0 % 0-10 Blood neutrophils automated count (number/volume) 4.4 10*3 1.8-7.8 Blood lymphocytes automated count (number/volume) 2.6 10*3 1.0-4.0 Blood monocytes automated count (number/volume) 0.6 10*3 0.0- 1.0 Automated eosinophil count 0.1 10*3/uL 0.0-0.3 Automated blood basophil count (count/volume) 0.0 10*3/uL 0.0-0.1 PT panel in platelet poor plasma by coagulation assay - 06/27/18 12:11 Prothrombin time (PT) in platelet poor plasma by coagulation assay 12.2 s 12.2-14.7 INR in platelet poor plasma or blood by coagulation assay 0.9 0.8-1.4 Activated partial thromboplastin time (aPTT) in platelet poor plasma bycoagulation assay - 06/27/18 12:11 Activated partial thromboplastin time (aPTT) in platelet poor plasma bycoagulation assay 23 s 24-35 Fibrin D-dimer FEU measurement in platelet poor plasma (mass/volume) - 06/27/18 12:11 Fibrin D-dimer FEU measurement in platelet poor plasma (mass/volume) 0.36 ug/mL 0.00-0.49 Comprehensive metabolic panel - 06/27/18 12:11 Serum or plasma sodium measurement (moles/volume) 135 mmol/L 135-145 Serum or plasma potassium measurement (moles/volume) 4.3 mmol/L 3.6-5.0 Serum or plasma chloride measurement (moles/volume) 101 mmol/L 98-107 Carbon dioxide 22 mmol/L 21-32 Serum or plasma anion gap determination (moles/volume) 12 mmol/L 5-14 Serum or plasma urea nitrogen measurement (mass/volume) 6 mg/dL 7-18 Serum or plasma creatinine measurement (mass/volume) 0.70 mg/dL 0.60-1.30 Serum or plasma urea nitrogen/creatinine mass ratio 9 NRG Serum or plasma creatinine measurement with calculation of estimated glomerular filtration rate > NRG Serum or plasma glucose measurement (mass/volume) 366 mg/dL 70-105 Serum or plasma calcium measurement (mass/volume) 9.2 mg/dL 8.5-10.1 Serum or plasma total bilirubin measurement (mass/volume) 0.4 mg/dL 0.1-1.0 Serum or plasma alkaline phosphatase measurement (enzymatic activity/volume) 73 U/L 40-136 Serum or plasma aspartate aminotransferase measurement (enzymatic activity/volume) 19 U/L 5-34 Serum or plasma alanine aminotransferase measurement (enzymatic activity/volume) 19 U/L 0-55 Serum or plasma protein measurement (mass/volume) 7.1 g/dL 6.4-8.2 Serum or plasma albumin measurement (mass/volume) 4.1 g/dL 3.2-4.5 CALCIUM CORRECTED 9.1 mg/dL 8.5-10.1 Magnesium - 06/27/18 12:11 Magnesium 2.0 mg/dL 1.8-2.4 Serum or plasma troponin i.cardiac measurement (mass/volume) - 06/27/18 12:11 Serum or plasma troponin i.cardiac measurement (mass/volume) < ng/mL <0.028 Myoglobin, serum - 06/27/18 12:11 Myoglobin, serum 17.2 ng/mL 10.0-92.0 Serum or plasma lithium measurement (moles/volume) - 06/27/18 12:11 BNP level 33.0 pg/mL <100.0 Capillary blood glucose measurement by glucometer (mass/volume) - 06/27/18 16:55 Capillary blood glucose measurement by glucometer (mass/volume) 218 mg/dL 70-110 Serum or plasma troponin i.cardiac measurement (mass/volume) - 06/27/18 18:05 Serum or plasma troponin i.cardiac measurement (mass/volume) < ng/mL <0.028 Capillary blood glucose measurement by glucometer (mass/volume) - 06/27/18 20:19 Capillary blood glucose measurement by glucometer (mass/volume) 238 mg/dL 70-110 Lipid 1996 panel - 06/28/18 03:10 Serum or plasma triglyceride measurement (mass/volume) 277 mg/dL <150 Serum or plasma cholesterol measurement (mass/volume) 206 mg/dL < 200 Serum or plasma cholesterol in HDL measurement (mass/volume) 49 mg/dL 40-60 Cholesterol in LDL [mass/volume] in serum or plasma by direct assay 127 mg/dL 1-129 Serum or plasma cholesterol in VLDL measurement (mass/volume) 55 mg/dL 5-40 Capillary blood glucose measurement by glucometer (mass/volume) - 06/28/18 05:19 Capillary blood glucose measurement by glucometer (mass/volume) 303 mg/dL 70-110 Complete blood count (CBC) with automated white blood cell (WBC) differential - 09/02/18 19:10 Blood leukocytes automated count (number/volume) 8.3 10*3/uL 4.3-11.0 Blood erythrocytes automated count (number/volume) 4.40 10*6/uL 4.35-5.85 Venous blood hemoglobin measurement (mass/volume) 13.2 g/dL 11.5-16.0 Blood hematocrit (volume fraction) 40 % 35-52 Automated erythrocyte mean corpuscular volume 91 [foz_us] 80-99 Automated erythrocyte mean corpuscular hemoglobin (mass per erythrocyte) 30 pg 25-34 Automated erythrocyte mean corpuscular hemoglobin concentration measurement (mass/volume) 33 g/dL 32-36 Automated erythrocyte distribution width ratio 13.1 % 10.0- 14.5 Automated blood platelet count (count/volume) 239 10*3/uL 130-400 Automated blood platelet mean volume measurement 11.5 [foz_us] 7.4-10.4 Automated blood neutrophils/100 leukocytes 49 % 42-75 Automated blood lymphocytes/100 leukocytes 40 % 12-44 Blood monocytes/100 leukocytes 8 % 0-12 Automated blood eosinophils/100 leukocytes 2 % 0-10 Automated blood basophils/100 leukocytes 1 % 0-10 Blood neutrophils automated count (number/volume) 4.1 10*3 1.8-7.8 Blood lymphocytes automated count (number/volume) 3.0 10*3 1.0-4.0 Blood monocytes automated count (number/volume) 0.7 10*3 0.0- 1.0 Automated eosinophil count 0.2 10*3/uL 0.0-0.3 Automated blood basophil count (count/volume) 0.0 10*3/uL 0.0-0.1 PT panel in platelet poor plasma by coagulation assay - 09/02/18 19:10 Prothrombin time (PT) in platelet poor plasma by coagulation assay 12.5 s 12.2-14.7 INR in platelet poor plasma or blood by coagulation assay 0.9 0.8-1.4 Activated partial thromboplastin time (aPTT) in platelet poor plasma bycoagulation assay - 09/02/18 19:10 Activated partial thromboplastin time (aPTT) in platelet poor plasma bycoagulation assay 25 s 24-35 TROPONIN T - 09/02/18 19:10 TROPONIN T 7 % <=10 Comprehensive metabolic panel - 09/02/18 19:10 Serum or plasma sodium measurement (moles/volume) 136 mmol/L 135-145 Serum or plasma potassium measurement (moles/volume) 3.8 mmol/L 3.6-5.0 Serum or plasma chloride measurement (moles/volume) 95 mmol/L 98-107 Carbon dioxide 25 mmol/L 21-32 Serum or plasma anion gap determination (moles/volume) 16 mmol/L 5-14 Serum or plasma urea nitrogen measurement (mass/volume) 12 mg/dL 7-18 Serum or plasma creatinine measurement (mass/volume) 0.51 mg/dL 0.60-1.30 Serum or plasma urea nitrogen/creatinine mass ratio 24 NRG Serum or plasma creatinine measurement with calculation of estimated glomerular filtration rate > NRG Serum or plasma glucose measurement (mass/volume) 198 mg/dL 70-105 Serum or plasma calcium measurement (mass/volume) 9.2 mg/dL 8.5-10.1 Serum or plasma total bilirubin measurement (mass/volume) 0.3 mg/dL 0.1-1.0 Serum or plasma alkaline phosphatase measurement (enzymatic activity/volume) 63 U/L 40-136 Serum or plasma aspartate aminotransferase measurement (enzymatic activity/volume) 17 U/L 5-34 Serum or plasma alanine aminotransferase measurement (enzymatic activity/volume) 17 U/L 0-55 Serum or plasma protein measurement (mass/volume) 7.0 g/dL 6.4-8.2 Serum or plasma albumin measurement (mass/volume) 3.9 g/dL 3.2-4.5 CALCIUM CORRECTED 9.3 mg/dL 8.5-10.1 Magnesium - 09/02/18 19:10 Magnesium 1.7 mg/dL 1.8-2.4 Myoglobin, serum - 09/02/18 19:10 Myoglobin, serum 21.0 ng/mL 10.0-92.0 Lipase - 09/02/18 19:10 Lipase 20 U/L 8-78 Urine drug screening test - 09/02/18 19:30 Urine phencyclidine detection by screening method NEGATIVE NEGATIVE Urine benzodiazepines detection by screening method NEGATIVE NEGATIVE Urine cocaine detection NEGATIVE NEGATIVE Urine amphetamines detection by screening method NEGATIVE NEGATIVE Urine methamphetamine detection by screening method NEGATIVE NEGATIVE Urine cannabinoids detection by screening method POSITIVE NEGATIVE Urine opiates detection by screening method POSITIVE NEGATIVE Urine barbiturates detection NEGATIVE NEGATIVE Screening urine tricyclic antidepressants detection NEGATIVE NEGATIVE Urine methadone detection by screening method NEGATIVE NEGATIVE Urine oxycodone detection NEGATIVE NEGATIVE Urine propoxyphene detection NEGATIVE NEGATIVE Complete urinalysis with reflex to culture - 09/02/18 19:30 Urine color determination YELLOW NRG Urine clarity determination CLEAR NRG Urine pH measurement by test strip 7.0 5-9 Specific gravity of urine by test strip 1.015 1.016-1.022 Urine protein assay by test strip, semi-quantitative NEGATIVE NEGATIVE Urine glucose detection by automated test strip TRACE NEGATIVE Erythrocytes detection in urine sediment by light microscopy NEGATIVE NEGATIVE Urine ketones detection by automated test strip NEGATIVE NEGATIVE Urine nitrite detection by test strip NEGATIVE NEGATIVE Urine total bilirubin detection by test strip NEGATIVE NEGATIVE Urine urobilinogen measurement by automated test strip (mass/volume) 0.2 mg/dL NORMAL Urine leukocyte esterase detection by dipstick NEGATIVE NEGATIVE Automated urine sediment erythrocyte count by microscopy (number/high power field) NONE NRG Automated urine sediment leukocyte count by microscopy (number/high power field) NONE NRG Bacteria detection in urine sediment by light microscopy NONE NRG Squamous epithelial cells detection in urine sediment by light microscopy >50 NRG Crystals detection in urine sediment by light microscopy NONE NRG Casts detection in urine sediment by light microscopy NONE NRG Mucus detection in urine sediment by light microscopy NEGATIVE NRG Complete urinalysis with reflex to culture NO NRG TROPONIN T - 09/02/18 21:07 TROPONIN T 8 % <=10 Complete urinalysis with reflex to culture - 09/16/18 10:55 Urine color determination YELLOW NRG Urine clarity determination CLEAR NRG Urine pH measurement by test strip 7.0 5-9 Specific gravity of urine by test strip < 1.016-1.022 Urine protein assay by test strip, semi-quantitative NEGATIVE NEGATIVE Urine glucose detection by automated test strip NEGATIVE NEGATIVE Erythrocytes detection in urine sediment by light microscopy NEGATIVE NEGATIVE Urine ketones detection by automated test strip NEGATIVE NEGATIVE Urine nitrite detection by test strip NEGATIVE NEGATIVE Urine total bilirubin detection by test strip NEGATIVE NEGATIVE Urine urobilinogen measurement by automated test strip (mass/volume) 0.2 mg/dL NORMAL Urine leukocyte esterase detection by dipstick NEGATIVE NEGATIVE Automated urine sediment erythrocyte count by microscopy (number/high power field) NONE NRG Automated urine sediment leukocyte count by microscopy (number/high power field) NONE NRG Bacteria detection in urine sediment by light microscopy NONE NRG Squamous epithelial cells detection in urine sediment by light microscopy 2-5 NRG Crystals detection in urine sediment by light microscopy NONE NRG Casts detection in urine sediment by light microscopy NONE NRG Mucus detection in urine sediment by light microscopy NEGATIVE NRG Complete urinalysis with reflex to culture NO NRG Urine drug screening test - 09/16/18 10:55 Urine phencyclidine detection by screening method NEGATIVE NEGATIVE Urine benzodiazepines detection by screening method NEGATIVE NEGATIVE Urine cocaine detection NEGATIVE NEGATIVE Urine amphetamines detection by screening method NEGATIVE NEGATIVE Urine methamphetamine detection by screening method NEGATIVE NEGATIVE Urine cannabinoids detection by screening method POSITIVE NEGATIVE Urine opiates detection by screening method POSITIVE NEGATIVE Urine barbiturates detection NEGATIVE NEGATIVE Screening urine tricyclic antidepressants detection NEGATIVE NEGATIVE Urine methadone detection by screening method NEGATIVE NEGATIVE Urine oxycodone detection NEGATIVE NEGATIVE Urine propoxyphene detection NEGATIVE NEGATIVE Complete blood count (CBC) with automated white blood cell (WBC) differential - 09/16/18 11:00 Blood leukocytes automated count (number/volume) 13.3 10*3/uL 4.3-11.0 Blood erythrocytes automated count (number/volume) 4.76 10*6/uL 4.35-5.85 Venous blood hemoglobin measurement (mass/volume) 14.1 g/dL 11.5-16.0 Blood hematocrit (volume fraction) 43 % 35-52 Automated erythrocyte mean corpuscular volume 90 [foz_us] 80-99 Automated erythrocyte mean corpuscular hemoglobin (mass per erythrocyte) 30 pg 25-34 Automated erythrocyte mean corpuscular hemoglobin concentration measurement (mass/volume) 33 g/dL 32-36 Automated erythrocyte distribution width ratio 12.8 % 10.0- 14.5 Automated blood platelet count (count/volume) 252 10*3/uL 130-400 Automated blood platelet mean volume measurement 10.9 [foz_us] 7.4-10.4 Automated blood neutrophils/100 leukocytes 65 % 42-75 Automated blood lymphocytes/100 leukocytes 26 % 12-44 Blood monocytes/100 leukocytes 7 % 0-12 Automated blood eosinophils/100 leukocytes 2 % 0-10 Automated blood basophils/100 leukocytes 0 % 0-10 Blood neutrophils automated count (number/volume) 8.6 10*3 1.8-7.8 Blood lymphocytes automated count (number/volume) 3.4 10*3 1.0-4.0 Blood monocytes automated count (number/volume) 0.9 10*3 0.0- 1.0 Automated eosinophil count 0.3 10*3/uL 0.0-0.3 Automated blood basophil count (count/volume) 0.1 10*3/uL 0.0-0.1 Comprehensive metabolic panel - 09/16/18 11:00 Serum or plasma sodium measurement (moles/volume) 140 mmol/L 135-145 Serum or plasma potassium measurement (moles/volume) 4.1 mmol/L 3.6-5.0 Serum or plasma chloride measurement (moles/volume) 96 mmol/L 98-107 Carbon dioxide 23 mmol/L 21-32 Serum or plasma anion gap determination (moles/volume) 21 mmol/L 5-14 Serum or plasma urea nitrogen measurement (mass/volume) 6 mg/dL 7-18 Serum or plasma creatinine measurement (mass/volume) 0.58 mg/dL 0.60-1.30 Serum or plasma urea nitrogen/creatinine mass ratio 10 NRG Serum or plasma creatinine measurement with calculation of estimated glomerular filtration rate > NRG Serum or plasma glucose measurement (mass/volume) 93 mg/dL 70-105 Serum or plasma calcium measurement (mass/volume) 9.6 mg/dL 8.5-10.1 Serum or plasma total bilirubin measurement (mass/volume) 0.7 mg/dL 0.1-1.0 Serum or plasma alkaline phosphatase measurement (enzymatic activity/volume) 81 U/L 40-136 Serum or plasma aspartate aminotransferase measurement (enzymatic activity/volume) 11 U/L 5-34 Serum or plasma alanine aminotransferase measurement (enzymatic activity/volume) 7 U/L 0-55 Serum or plasma protein measurement (mass/volume) 8.1 g/dL 6.4-8.2 Serum or plasma albumin measurement (mass/volume) 4.3 g/dL 3.2-4.5 CALCIUM CORRECTED 9.4 mg/dL 8.5-10.1 Lipase - 09/16/18 11:00 Lipase 282 U/L 8-78 Automated blood complete blood count (hemogram) panel - 09/17/18 09:45 Blood leukocytes automated count (number/volume) 10.9 10*3/uL 4.3-11.0 Blood erythrocytes automated count (number/volume) 4.38 10*6/uL 4.35-5.85 Venous blood hemoglobin measurement (mass/volume) 12.7 g/dL 11.5-16.0 Blood hematocrit (volume fraction) 39 % 35-52 Automated erythrocyte mean corpuscular volume 89 [foz_us] 80-99 Automated erythrocyte mean corpuscular hemoglobin (mass per erythrocyte) 29 pg 25-34 Automated erythrocyte mean corpuscular hemoglobin concentration measurement (mass/volume) 33 g/dL 32-36 Automated erythrocyte distribution width ratio 13.2 % 10.0- 14.5 Automated blood platelet count (count/volume) 211 10*3/uL 130-400 Automated blood platelet mean volume measurement 10.9 [foz_us] 7.4-10.4 Comprehensive metabolic panel - 09/17/18 09:45 Serum or plasma sodium measurement (moles/volume) 138 mmol/L 135-145 Serum or plasma potassium measurement (moles/volume) 4.0 mmol/L 3.6-5.0 Serum or plasma chloride measurement (moles/volume) 104 mmol/L 98-107 Carbon dioxide 19 mmol/L 21-32 Serum or plasma anion gap determination (moles/volume) 15 mmol/L 5-14 Serum or plasma urea nitrogen measurement (mass/volume) 9 mg/dL 7-18 Serum or plasma creatinine measurement (mass/volume) 0.63 mg/dL 0.60-1.30 Serum or plasma urea nitrogen/creatinine mass ratio 14 NRG Serum or plasma creatinine measurement with calculation of estimated glomerular filtration rate > NRG Serum or plasma glucose measurement (mass/volume) 109 mg/dL 70-105 Serum or plasma calcium measurement (mass/volume) 9.3 mg/dL 8.5-10.1 Serum or plasma total bilirubin measurement (mass/volume) 1.2 mg/dL 0.1-1.0 Serum or plasma alkaline phosphatase measurement (enzymatic activity/volume) 73 U/L 40-136 Serum or plasma aspartate aminotransferase measurement (enzymatic activity/volume) 11 U/L 5-34 Serum or plasma alanine aminotransferase measurement (enzymatic activity/volume) 11 U/L 0-55 Serum or plasma protein measurement (mass/volume) 7.1 g/dL 6.4-8.2 Serum or plasma albumin measurement (mass/volume) 3.9 g/dL 3.2-4.5 CALCIUM CORRECTED 9.4 mg/dL 8.5-10.1 Lipase - 09/17/18 09:45 Lipase 75 U/L 8-78 Capillary blood glucose measurement by glucometer (mass/volume) - 09/17/18 11:22 Capillary blood glucose measurement by glucometer (mass/volume) 115 mg/dL 70-110 Encounters ACCT No. Visit Date/Time Discharge Status Pt. Type Provider Facility Loc./Unit Complaint [id number] 10/04/2016 15:30:00 10/04/2016 23:59:59 CLS Preadmit MARE BAILEY APRN [facility] RT [id number] 06/26/2013 14:58:00 06/26/2013 16:27:00 DIS Emergency [facility] ER FALL/RIGHT ANKLE PAIN [id number] 09/16/2018 17:10:00 09/17/2018 13:12:00 DIS Outpatient JERSEY HAQUE MD [facility] 4TH ABD PAIN; W/V; PANCREATITIS [id number] 09/02/2018 18:14:00 09/02/2018 22:09:00 DIS Emergency CHAPARRO KELLEY MD [facility] ER FS CHEST PAIN [id number] 08/16/2018 17:26:00 08/16/2018 19:10:00 DIS Emergency NATE MULLER DO [facility] ER FS EAR PIERCING PAIN [id number] 08/13/2018 08:53:00 08/13/2018 23:59:59 CLS Outpatient MARE BAILEY APRN [facility] RAD ABN FINDING ON LUNG FIELD,ASTHMA,DYSPNEA [id number] 07/12/2018 10:55:00 07/12/2018 12:05:00 DIS Emergency MARIYA PETERSEN DO [facility] ER FS BUTTOCK ABSCESS [id number] 06/27/2018 14:33:00 06/28/2018 15:00:00 DIS Inpatient JERSEY HAQUE MD [facility] ICU CHEST PAIN/ASHD [id number] 05/05/2018 09:38:00 05/06/2018 12:53:00 DIS Inpatient Maksim VASQUEZ MD [facility] ICU STEMI [id number] 04/09/2018 13:46:00 04/09/2018 14:38:00 DIS Emergency SKIP HALLMAN [facility] ER COLD SYMPTOMS [id number] 02/21/2018 10:43:00 02/21/2018 23:59:59 CLS Outpatient Maksim VASQUEZ MD [facility] CARD CAD,HTN [id number] 12/18/2017 16:17:00 12/18/2017 23:59:59 CLS Outpatient MALLORIE LAWS MD [facility] ER CHEST PAIN;LEFT ARM NUMB [id number] 11/28/2017 13:23:00 11/28/2017 23:59:59 CLS Outpatient VERA HARKINS MD (DDU) [facility] RT ASTHMA,COPD [id number] 11/23/2017 20:38:00 11/23/2017 22:28:00 DIS Emergency KEN JAVIER DO [facility] ER BOIL ON GENITAL [id number] 11/17/2017 20:28:00 11/17/2017 22:56:00 DIS Emergency ALLIE STRATTON, CHAPARRO Galeas [facility] ER FACE GOING NUMB,NECK AND SPINAL PAIN [id number] 10/18/2017 12:21:00 10/18/2017 15:38:00 DIS Emergency CARL ROJO MD [facility] ER VOMITING [id number] 08/14/2016 11:17:00 08/14/2016 13:57:00 DIS Outpatient KATELYNN DIAZ MD [facility] ENDO NAUSEA/VOMITING; BLOOD IN STOOLS [id number] 08/11/2016 14:20:00 08/11/2016 14:34:00 DIS Outpatient KATELYNN DIAZ MD [facility] PREOP NAUSEA/VOMITING; BLOOD IN STOOLS [id number] 11/25/2018 16:22:00 ACT Emergency SABRINA FRANCO DO [facility] ER FS LT FOOT INJ [id number] 08/21/2018 09:44:00 Document Registration [id number] 07/19/2018 08:26:00 Document Registration [id number] 06/26/2013 14:58:00 Document Registration
--- NOTE | 2018-11-25 16:34 | ED Lower Extremity ---
General Chief Complaint: Lower Extremity Stated Complaint: LT FOOT INJ Source: patient, RN notes reviewed Exam Limitations: no limitations History of Present Illness Date Seen by Provider: Nov 25, 2018 Time Seen by Provider: 16:33 Initial Comments Patient presents c/ c/o left foot pain p/ "rolling" it twice yesterday. States she heard and felt a pop in her foot the second time. Onset: yesterday Severity: severe (01/28) Pain/Injury Location: left foot Method of Injury: twisted Modifying Factors: Worse With Movement; Improves With Pain Medication, Improves With Rest Allergies and Home Medications Allergies Coded Allergies: hydromorphone (Verified Allergy, Unknown, b/p and oxygen level drop, 09/16/18) tramadol (Verified Allergy, Unknown, ANAPHYLAXIS, 09/16/18) Uncoded Allergies: air casts (Allergy, Unknown, 11/28/17) Home Medications Albuterol Sulfate 1 Puff Puff, 2 PUFF IH Q4H PRN for SHORTNESS OF BREATH, (Reported) Aspirin 81 Mg Tablet.dr, 81 MG PO HS, (Reported) Atorvastatin Calcium 40 Mg Tablet, 40 MG PO HS, (Reported) Bupropion HCl 150 Mg Tablet.er, 150 MG PO BID, (Reported) Clopidogrel Bisulfate 75 Mg Tablet, 75 MG PO HS, (Reported) Dolutegravir Sodium 50 Mg Tablet, 50 MG PO HS, (Reported) Emtricitabine/Tenofov Alafenam 1 Each Tablet, 1 TAB PO HS, (Reported) Estradiol 2 Mg Tablet, 2 MG PO DAILY, (Reported) Furosemide 40 Mg Tablet, 40 MG PO DAILY, (Reported) Hydrocodone Bit/Acetaminophen 1 Ea Tablet, 1 EACH PO Q6H PRN for BREAK THRU FOOT PAIN Prescribed by: SABRINA FRANCO on 11/25/18 1723 Hydrocodone/Acetaminophen 1 Each Tablet, 1 TAB PO TID PRN for PAIN-MODERATE, (Reported) Insulin Aspart 100 Unit/1 Ml Susp, PER INSULIN PUMP, (Reported) Lisinopril 5 Mg Tablet, 5 MG PO HS, (Reported) Lisinopril 2.5 Mg Tablet, 2.5 MG PO DAILY, (Reported) Metformin HCl 500 Mg Tab.er.24h, 1,000 MG PO BID, (Reported) TAKES 2 (500MG) TABLETS Metoprolol Tartrate 25 Mg Tablet, 25 MG PO BID, (Reported) Omeprazole 40 Mg Capsule.dr, 40 MG PO DAILY, (Reported) Ondansetron 8 Mg Tab.rapdis, 8 MG PO Q4H PRN for NAUSEA/VOMITING-1ST LINE, (Reported) Pregabalin 75 Mg Capsule, 75 MG PO DAILY, (Reported) Pregabalin 75 Mg Capsule, 150 MG PO HS, (Reported) TAKES 2 (75MG) CAPSULES Sucralfate 1 Gm Tablet, 1 GM PO ACHS PRN for INDIGESTION, (Reported) Patient Home Medication List Home Medication List Reviewed: Yes Review of Systems Constitutional: see HPI : No Musculoskeletal: see HPI, other (left foot pain) All Other Systems Reviewed Negative Unless Noted: Yes (Negative excepted noted.) Past Xzsxcyf-Nmtqvd-Dfqkvt Hx Patient Social History Drug of Choice: Methamphetamines Past, THC Present Type Used: Cigarettes 2nd Hand Smoke Exposure: No Recent Foreign Travel: No Contact w/Someone Who Travel: No Recent Hopitalizations: Yes Immunizations Up To Date Date of Pneumonia Vaccine: Feb 18, 2013 Date of Influenza Vaccine: Mar 06, 2018 Seasonal Allergies Seasonal Allergies: No Past Medical History Surgeries: Yes (April 2018- [place] with stent placement, L eye removal) Coronary Stent, Eye Surgery, Gallbladder, Hysterectomy, Tubal Ligation Respiratory: Yes Asthma, COPD Cardiac: Yes ([place] April 2018) Heart Attack Neurological: Yes (psuedoseizure when really stressed out) Seizure Disorder 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 Disorders: Yes DESIGN LEAD History: Hysterectomy Sexually Transmitted Disease: No HIV/AIDS: Yes Genitourinary: No Gastrointestinal: No Musculoskeletal: Yes (patient reports herniated, bulging cervical discs) Arthritis Endocrine: Yes Diabetes, Insulin dep HEENT: No Eye Injury Loss of Vision: Left Cancer: No Psychosocial: Yes Anxiety, Depression Integumentary: No Blood Disorders: Yes (Hep C, HIV) Adverse Reaction/Blood Tranf: No Family Medical History Cardiovascular disease 19 FATHER 19 MOTHER Diabetes mellitus 19 FATHER FH: lung disease 19 MOTHER Heart Disease, Diabetes, Hypertension Physical Exam Vital Signs Vital Signs - First Documented 11/25/18 16:24 Temp 96.0 Pulse 92 Resp 18 B/P (MAP) 125/79 (94) Pulse Ox 99 Capillary Refill : Height, Weight, BMI Height: 5'5.00" Weight: 236lbs. 3.0oz. 107.041319nu; 38.1 BMI Method:Stated General Appearance: WD/WN, no apparent distress Cardiovascular: regular rate, rhythm Respiratory: no respiratory distress Feet: left foot pain Neurologic/Psychiatric: no motor/sensory deficits, alert, normal mood/affect, oriented x 3 Skin: warm/dry Progress/Results/Core Measures Results/Orders My Orders Orders - SABRINA FRANCO DO Foot 3 View Left (11/25/18 16:34) [place] Bandage (11/25/18 17:20) Crutches (11/25/18 17:20) Vital Signs/I&O 11/25/18 11/25/18 16:24 17:43 Temp 96.0 96.0 Pulse 92 92 Resp 18 18 B/P (MAP) 125/79 (94) 125/79 (94) Pulse Ox 99 99 Diagnostic Imaging Diagonstic Imaging: Xray Plain Films/CT/US/NM/MRI: other (foot-negative for fx) Departure Impression Primary Impression: Sprain and strain of foot Disposition: 01 HOME, SELF-CARE Condition: Stable Departure-Patient Inst. Decision time for Depature: 17:21 Referrals: CHUCKIE MARIE DO (PCP) Primary Care Physician FRANDY DEUTSCH (Family) Primary Care Physician Patient Instructions: Sprain (DC) Add. Discharge Instructions: All discharge instructions reviewed with patient and/or family. Voiced understanding. RECOMMEND 400-600 mg OF IBUPROFEN EVERY 6 HOURS FOR PAIN/SWELLING. Scripts Hydrocodone Bit/Acetaminophen (LORTAB 7.5 MG TABLET) 1 Ea Tablet 1 EACH PO Q6H PRN for BREAK THRU FOOT PAIN, #12 TAB 0 Refills Prov: SABRINA FRANCO DO 11/25/18 SABRINA FRANCO DO Nov 25, 2018 16:34
[2018-11-25] MEDS ORDERED: HYDR-34 PO (17:23)
[2018-11-25 17:43] VITALS: BP 125/79
--- NOTE | 2018-11-25 18:53 | Diagnostic Imaging Report ---
EXAMINATION: Left foot radiographs, 3 views. COMPARISON: None. HISTORY: 43-year-old female, injury 2 days ago. Pain at the lateral aspect of the foot. FINDINGS: There is a tiny calcaneal heel spur. There is no identified radiopaque foreign body. There is no identified acute fracture. There is no identified subluxation or dislocation. There is a tiny os navicularis. IMPRESSION: No identified acute bony abnormality of the left foot. Dictated by: Dictated on workstation # [id number]
== END 2018-11-25 17:42 | disposition home or self-care (01) ==
LOC: EDUNIT# 16:21 → ER FS 16:22
DX: S93.602A Unspecified sprain of left foot, initial encounter (principal); J44.9 Chronic obstructive pulmonary disease, unspecified; I25.2 Old myocardial infarction; G40.909 Epilepsy, unspecified, not intractable, without status epilepticus; E11.9 Type 2 diabetes mellitus without complications; F41.9 Anxiety disorder, unspecified; F32.9 Major depressive disorder, single episode, unspecified; Z82.49 Family history of ischemic heart disease and other diseases of the circulatory system; Z98.51 Tubal ligation status; Z90.710 Acquired absence of both cervix and uterus; Z95.5 Presence of coronary angioplasty implant and graft; Z88.5 Allergy status to narcotic agent; Z79.82 Long term (current) use of aspirin; Z79.52 Long term (current) use of systemic steroids; Z79.4 Long term (current) use of insulin; X50.1XXA Overexertion from prolonged static or awkward postures, initial encounter
CPT/HCPCS: 73630

== ENCOUNTER 2018-12-01 20:31 | Emergency (ER) | payer BC, MEDICAID ==
[~2018-12-01] VITALS: Ht 165.1 cm; Wt 99.3 kg
[~2018-12-01 20:31] MED LIST changes: +HYDR-34 PO
[2018-12-01] MEDS ORDERED: FAMOTIDINE 20 MG (PEPCID) TABLET PO STA (20:50)
--- NOTE | 2018-12-01 20:57 | ED Chest Pain ---
General Chief Complaint: Chest Pain Stated Complaint: CHEST PAIN Source: patient, EMS Exam Limitations: no limitations History of Present Illness Date Seen by Provider: Dec 01, 2018 Time Seen by Provider: 20:35 Initial Comments Patient presents to the ER from home by EMS with chief complaint of chest pain that originates in her back around her left shoulder blade radiates around to her front and goes down her left arm. She says the pain started at 3:00 in the morning and she took a hydrocodone which allowed her to go back to sleep. It still hurting her and she is having some nausea so she called an ambulance which obtained an initial EKG that was negative for changes. They gave her 4 tablets of 81 mg aspirin to chew and swallow and the patient declined nitroglycerin because she states it causes her blood pressure bottom out. They gave her 4 followed by 2 more milligrams of morphine which brought her pain from an 8 out of 10 down to a 4 out of 10. She was also given 4 of Zofran for her nausea. She does have a significant history of coronary disease with stents by Dr. Enriquez in April 2018. She denies any recreational drugs except for marijuana. She does not use alcohol and she says she still smokes about half pack cigarettes per day. She's having no belly pain but she does have a history of GERD and said she was having some acid reflux before the shoulder pain started. She's had EGD and colonoscopy in the past that have discovered 4 separate ulcers in her stomach. Allergies and Home Medications Allergies Coded Allergies: hydromorphone (Verified Adverse Reaction, Unknown, 12/01/18) tramadol (Verified Adverse Reaction, Unknown, 12/01/18) Patient Home Medication List Home Medication List Reviewed: Yes Review of Systems Review of Systems Constitutional: No chills, No diaphoresis EENTM: No Blurred Vision, No Double Vision Respiratory: Denies Cough, Denies Shortness of Air Cardiovascular: See HPI, Chest Pain; Denies Edema Gastrointestinal: Denies Abdomen Distended, Denies Abdominal Pain, Denies Constipated; Diarrhea (chronic), Nausea; Denies Poor Fluid Intake, Denies Vomiting Genitourinary: Denies Burning, Denies Discharge Musculoskeletal: No back pain, No joint pain Skin: No pruritus, No rash Past Ariankt-Ghrnez-Tzhcbh Hx Patient Social History Alcohol Use: Denies Use Recreational Drug Use: Yes Drug of Choice: MJ Smoking Status: Current Everyday Smoker Type Used: Cigarettes Physical Exam Vital Signs Vital Signs - First Documented 12/01/18 12/01/18 20:45 20:48 Temp 98.4 Pulse 78 Resp 12 B/P (MAP) 157/92 (113) Pulse Ox 98 O2 Delivery Nasal Cannula O2 Flow Rate 2.00 Capillary Refill : Height, Weight, BMI Height: '" Weight: lbs. oz. kg; BMI Method: General Appearance: No Apparent Distress, Obese HEENT: PERRL/EOMI, Normal ENT Inspection, Pharynx Normal, Moist Mucous Membranes Neck: Full Range of Motion, Normal Inspection Respiratory: Chest Non Tender (left shoulder blade and axilla are tender to palpation.), Lungs Clear, Normal Breath Sounds, No Accessory Muscle Use, No Respiratory Distress Cardiovascular: Regular Rate, Rhythm, No Edema, Normal Peripheral Pulses Gastrointestinal: Normal Bowel Sounds, Non Tender, Soft Neurologic/Psychiatric: Alert, Oriented x3 Skin: Normal Color, Warm/Dry, Other (multiple shallow ulcerations on the extremities face and trunk) Progress/Results/Core Measures Results/Orders Lab Results Laboratory Tests Test 12/01/18 20:42 12/01/18 21:35 12/01/18 23:20 Range/Units White Blood Count 8.8 4.3-11.0 10^3/uL Red Blood Count 4.52 4.35-5.85 10^6/uL Hemoglobin 13.0 11.5-16.0 G/DL Hematocrit 39 35-52 % Mean Corpuscular Volume 87 80-99 FL Mean Corpuscular Hemoglobin 29 25-34 PG Mean Corpuscular Hemoglobin Concent 33 32-36 G/DL Red Cell Distribution Width 12.8 10.0-14.5 % Platelet Count 257 130-400 10^3/uL Mean Platelet Volume 11.8 H 7.4-10.4 FL Neutrophils (%) (Auto) 46 42-75 % Lymphocytes (%) (Auto) 42 12-44 % Monocytes (%) (Auto) 9 0-12 % Eosinophils (%) (Auto) 2 0-10 % Basophils (%) (Auto) 0 0-10 % Neutrophils # (Auto) 4.1 1.8-7.8 X 10^3 Lymphocytes # (Auto) 3.7 1.0-4.0 X 10^3 Monocytes # (Auto) 0.8 0.0-1.0 X 10^3 Eosinophils # (Auto) 0.2 0.0-0.3 10^3/uL Basophils # (Auto) 0.0 0.0-0.1 10^3/uL Prothrombin Time 12.3 12.2-14.7 SEC INR Comment 0.9 0.8-1.4 Activated Partial Thromboplast Time 24 24-35 SEC D-Dimer 0.52 H 0.00-0.49 UG/ML Sodium Level 134 L 135-145 MMOL/L Potassium Level 3.8 3.6-5.0 MMOL/L Chloride Level 90 L 98-107 MMOL/L Carbon Dioxide Level 29 21-32 MMOL/L Anion Gap 15 H 5-14 MMOL/L Blood Urea Nitrogen 7 7-18 MG/DL Creatinine 0.50 L 0.60-1.30 MG/DL Estimat Glomerular Filtration Rate > 60 BUN/Creatinine Ratio 14 Glucose Level 386 H 70-105 MG/DL Calcium Level 9.4 8.5-10.1 MG/DL Corrected Calcium 9.5 8.5-10.1 MG/DL Magnesium Level 1.8 1.8-2.4 MG/DL Total Bilirubin 0.3 0.1-1.0 MG/DL Aspartate Amino Transf (AST/SGOT) 15 5-34 U/L Alanine Aminotransferase (ALT/SGPT) 27 0-55 U/L Alkaline Phosphatase 86 40-136 U/L Myoglobin 21.0 10.0-92.0 NG/ML Troponin I 0.30 < 0.30 <0.30 NG/ML Pro-B-Type Natriuretic Peptide 62.0 <75.0 PG/ML Total Protein 7.0 6.4-8.2 GM/DL Albumin 3.9 3.2-4.5 GM/DL Serum Test, Qualitative NEGATIVE NEGATIVE Urine Color YELLOW Urine Clarity CLEAR Urine pH 7.0 5-9 Urine Specific [place] <=1.005 1.016-1.022 Urine Protein NEGATIVE NEGATIVE Urine Glucose (UA) 3+ H NEGATIVE Urine Ketones NEGATIVE NEGATIVE Urine Nitrite NEGATIVE NEGATIVE Urine Bilirubin NEGATIVE NEGATIVE Urine Urobilinogen 0.2 NORMAL MG/DL Urine Leukocyte Esterase NEGATIVE NEGATIVE Urine RBC (Auto) NEGATIVE NEGATIVE Urine RBC RARE /HPF Urine WBC NONE /HPF Urine Squamous Epithelial Cells 2-5 /HPF Urine Crystals NONE /LPF Urine Bacteria NEGATIVE /HPF Urine Casts NONE /LPF Urine Mucus NEGATIVE /LPF Urine Culture Indicated NO Urine Opiates Screen POSITIVE H NEGATIVE Urine Oxycodone Screen NEGATIVE NEGATIVE Urine Methadone Screen NEGATIVE NEGATIVE Urine Propoxyphene Screen NEGATIVE NEGATIVE Urine Barbiturates Screen NEGATIVE NEGATIVE Ur Tricyclic Antidepressants Screen NEGATIVE NEGATIVE Urine Phencyclidine Screen NEGATIVE NEGATIVE Urine Amphetamines Screen NEGATIVE NEGATIVE Urine Methamphetamines Screen POSITIVE H NEGATIVE Urine Benzodiazepines Screen NEGATIVE NEGATIVE Urine Cocaine Screen NEGATIVE NEGATIVE Urine Cannabinoids Screen POSITIVE H NEGATIVE My Orders Orders - CHAPARRO KELLEY Continuous Ekg Monitoring (12/01/18 20:47) Ekg Tracing (12/01/18 20:47) Cbc With Automated Diff (12/01/18 20:50) Magnesium (12/01/18 20:50) Chest 1 View Ap/Pa Only (12/01/18 20:50) Comprehensive Metabolic Panel (12/01/18 20:50) Myoglobin Serum (12/01/18 20:50) Protime With Inr (12/01/18 20:50) Partial Thromboplastin Time (12/01/18 20:50) O2 (12/01/18 20:50) Lipid Panel (12/02/18 06:00) Ed Iv/Invasive Line Start (12/01/18 20:50) Fibrin Degradation Products (12/01/18 20:50) Troponin I (12/01/18 20:50) Probnp Fs (12/01/18 20:50) Lidocaine 2% Viscous 15 Ml (Xylocaine Vi (12/01/18 21:00) Famotidine Tablet (Pepcid Tablet) (12/01/18 20:50) Antacid Suspension (Mylanta Suspension (12/01/18 21:00) Ua Culture If Indicated (12/01/18 21:00) Drug Screen Stat (Urine) (12/01/18 21:00) Hcg,Qualitative Serum (12/01/18 21:00) Morphine Injection (Morphine Injection (12/01/18 21:30) Ed Iv/Invasive Line Start (12/01/18 22:13) Ns Iv 1000 Ml (Sodium Chloride 0.9%) (12/01/18 22:13) Troponin I (12/01/18 23:15) Insulin (Regular) Human (Humulin R (Per (12/01/18 23:30) Ekg Tracing (12/01/18 23:46) Medications Given in ED Current Medications Medications Dose Ordered Sig/Randy Route Start Time Stop Time Status Last Admin Dose Admin Al Hydrox/Mg Hydrox/Simethicone 30 ml ONCE ONCE PO 12/01/18 21:00 12/01/18 21:01 DC 12/01/18 20:59 30 ML Insulin Human Regular 10 unit ONCE ONCE SC 12/01/18 23:30 12/01/18 23:31 DC 12/01/18 23:34 10 UNIT Lidocaine HCl 15 ml ONCE ONCE PO 12/01/18 21:00 12/01/18 21:01 DC 12/01/18 20:59 15 ML Vital Signs/I&O 12/01/18 12/01/18 12/01/18 20:45 20:48 21:02 Temp 98.4 Pulse 78 Resp 12 B/P (MAP) 157/92 (113) Pulse Ox 98 O2 Delivery Nasal Cannula Nasal Cannula Nasal Cannula O2 Flow Rate 2.00 2.00 12/02/18 00:00 Intake Total 1000 ml Balance 1000 ml Progress Progress Note #1: Time: 20:57 Progress Note Cardiac workup. GI cocktail. She has already received aspirin and declines nitroglycerin. Her pain is controlled at 4 out of 10 with the 6 mg of morphine. EKG does show mild changes but nothing definitive for a STEMI. Urinalysis and drug screen. The patient states she had a stent placed in April 2018 but for some reason we are not able to find any of her history and the EMR based on her date of or name. No previous EKG to compare to. No cardiac notes available at this time. Registration is working on it. Progress Note #2: Time: 21:59 Progress Note Previous review of medical records demonstrates she had a stent placed in November, and again in April,. Right coronary artery. She has a history of a stable pulmonary nodule. Diabetes, tobaccoism, history of methamphetamine use and noncompliance with medications. April [address] Enriquez shows cavity size normal wall thickness mildly increased with concentric hypertrophy. EF of 50-55% and grade 1 diastolic dysfunction. ED ACS score 5 points. Low risk by the EDACS Score. If the patient also has: (1) EKG without new ischemic changes and (2) negative initial and 2-hour troponins, then this patient is safe for discharge to early outpatient follow-up investigation (or proceed to earlier inpatient testing). If EKG with ischemic changes or positive troponin, they are not low risk and require normal risk stratification. Well score 1.5 points low risk. Low risk group: 1.3% chance of PE in an ED population. Initial ECG Impression Date: Dec 01, 2018 Initial ECG Impression Time: 20:40 Initial ECG Rate: 79 Initial ECG Rhythm: Normal Sinus Initial ECG Intervals: Normal Initial ECG Impression: Normal, Nonspecific Changes Initial ECG Comparisson: Unchanged Comment 1 box of elevation in the anterior leads V1, V2 and V3. No reciprocal depression. EKG : EKG Time: 23:49 Rate: 60 Rhythm: Normal Sinus Intervals: Normal ECG Comparisson: Unchanged ECG Impression: Normal, Nonspecific Changes Comment Less than 1 box of elevation in anterior lead V2 and less than half of a box of elevation in anterior lead V3. Similar in appearance to previous EKG. Diagnostic Imaging Diagonstic Imaging: Xray Plain Films/CT/US/NM/MRI: chest (1v) Comments NAME: LINDSEY DE LA TORRE [facility] REC#: [id number] PT STATUS: REG ER : 1975 PHYSICIAN: CHAPARRO KELLEY MD ADMIT DATE: 12/01/18/ER FS Draft Date of Exam:12/01/18 CHEST 1 VIEW AP/PA ONLY INDICATION: Chest pain and in between the shoulders down to the left arm. EXAMINATION: Chest, 12/01/2018. COMPARISON: 07/19/2018. FINDINGS: Single frontal view of the chest. The heart and pulmonary vasculature appear unremarkable. There is a rounded lesion within the right mid chest currently measuring approximately 17 mm in size. Previous examination demonstrated a similar finding with a negative PET scan on 08/20/2018. Followup as recommended by PET scan recommended. The remaining lungs are clear. No pneumothorax or effusions. IMPRESSION: Stable nodule in the right midlung. The remaining chest is unremarkable. Dictated on workstation # [id number] Dict: 12/01/182119 Trans: 12/01/182136 [facility] [id number] Interpreted by: FRACISCO CONNELL MD Electronically signed by: Reviewed: Reviewed by Me Consults : Consulting Physician: Maksim ENRIQUEZ MD Consults Notes After discussing her imaging, labs and blood work he recommends a two-hour delta troponin. If it still negative he would follow her up in the clinic. Departure Impression Primary Impression: Chest wall pain Disposition: HOME, SELF-CARE Condition: Stable Departure-Patient Inst. Decision time for Depature: 23:44 Referrals: Maksim ENRIQUEZ MD NO,LOCAL PHYSICIAN (PCP) Primary Care Physician Patient Instructions: Chest Pain That Is Not Caused by the Heart (DC) Add. Discharge Instructions: Tomorrow morning call Dr. Enriquez's office and request an appointment this week. Tylenol 1000 mg every 8 hours in addition to your Percocets as necessary for pain. Muscle rubs such as icy hot and Biofreeze etc. can be useful. All discharge instructions reviewed with patient and/or family. Voiced understanding. CHAPARRO KELLEY Dec 01, 2018 20:57
[2018-12-01] MEDS ORDERED: LIDOCAINE 2% VISCOUS 15 ML UDC PO ONE (21:00)
[2018-12-01] MEDS ORDERED: ANTACID SUSP 30 ML UDC (MYLANTA) PO ONE (21:00)
[2018-12-01] MEDS ORDERED: morphine INJ 10 MG/ML 1ML (SYR OR VIAL) IVP STA (21:30)
--- NOTE | 2018-12-01 21:37 | Diagnostic Imaging Report ---
INDICATION: Chest pain and in between the shoulders down to the left arm. EXAMINATION: Chest, 12/01/2018. COMPARISON: 07/19/2018. FINDINGS: Single frontal view of the chest. The heart and pulmonary vasculature appear unremarkable. There is a rounded lesion within the right mid chest currently measuring approximately 17 mm in size. Previous examination demonstrated a similar finding with a negative PET scan on 08/20/2018. Followup as recommended by PET scan recommended. The remaining lungs are clear. No pneumothorax or effusions. IMPRESSION: Stable nodule in the right midlung. The remaining chest is unremarkable. Dictated by: Dictated on workstation # [id number]
[2018-12-01 21:50] LABS: BASOPHILS % (AUTO) 0 % (0-10); EOSINOPHILS % (AUTO) 2 % (0-10); HEMATOCRIT 39 % (35-52); LYMPHOCYTES % (AUTO) 42 % (12-44); MEAN CORPUSCULAR HEMOGLOBIN 29 PG (25-34); MEAN CORPUSCULAR HGB CONC 33 G/DL (32-36); MEAN CORPUSCULAR VOLUME 87 FL (80-99); MEAN PLATELET VOLUME 11.8 FL (7.4-10.4); MONOCYTES % (AUTO) 9 % (0-12); NEUTROPHILS % (AUTO) 46 % (42-75); PLATELET COUNT 257 10^3/uL (130-400); RED CELL DISTRIBUTION WIDTH 12.8 % (10.0-14.5); WHITE BLOOD COUNT 8.8 10^3/uL (4.3-11.0)
[2018-12-01 21:51] LABS: EOSINOPHILS # (AUTO) 0.2 10^3/uL (0.0-0.3); LYMPHOCYTES # (AUTO) 3.7 X 10^3 (1.0-4.0); MONOCYTES # (AUTO) 0.8 X 10^3 (0.0-1.0); NEUTROPHILS # (AUTO) 4.1 X 10^3 (1.8-7.8)
[2018-12-01 21:52] LABS: INR 0.9 (0.8-1.4); PROTHROMBIN TIME PATIENT 12.3 SEC (12.2-14.7)
[2018-12-01] MEDS ORDERED: NS IV 1000 ML 1,000 ML IV SCH (22:13)
[2018-12-01 22:15] LABS: CLARITY,URINE CLEAR; COLOR,URINE YELLOW
[2018-12-01 22:16] LABS: BACTERIA,URINE NEGATIVE /HPF; BILIRUBIN,URINE NEGATIVE (NEGATIVE); GLUCOSE, URINE (UA) 3+ (NEGATIVE); KETONES,URINE NEGATIVE (NEGATIVE); LEUKOCYTE ESTERASE ,URINE NEGATIVE (NEGATIVE); NITRITE,URINE NEGATIVE (NEGATIVE); PROTEIN,URINE NEGATIVE (NEGATIVE); RBC,URINE RARE /HPF; UROBILINOGEN,URINE 0.2 MG/DL (NORMAL)
--- NOTE | 2018-12-01 22:32 | NUR ---
PT. HAS LANDON ALL OVER HER BODY FROM DIGGING AT HER SKIN.
[2018-12-01 22:33] LABS: BENZODIAZEPINES SCREEN URINE NEGATIVE (NEGATIVE); COCAINE SCREEN URINE NEGATIVE (NEGATIVE)
[2018-12-01 22:34] LABS: AMPHETAMINE SCREEN, URINE NEGATIVE (NEGATIVE); BARBITURATE SCREEN URINE NEGATIVE (NEGATIVE); CANNABINOID SCREEN, URINE POSITIVE (NEGATIVE); METHADONE STAT NEGATIVE (NEGATIVE); METHAMPHETAMINE SCREEN URINE S POSITIVE (NEGATIVE); OPIATE SCREEN URINE POSITIVE (NEGATIVE); OXYCODONE STAT NEGATIVE (NEGATIVE); PROPOXYPHENE STAT NEGATIVE (NEGATIVE); TRICYCLIC ANTIDEPRESSANTS SCRE NEGATIVE (NEGATIVE)
[2018-12-01 23:15] LABS: CARBON DIOXIDE 29 MMOL/L (21-32); CHLORIDE 90 MMOL/L (98-107); POTASSIUM 3.8 MMOL/L (3.6-5.0); SODIUM 134 MMOL/L (135-145)
[2018-12-01 23:16] LABS: ALANINE AMINOTRANSFERASE 27 U/L (0-55); ALKALINE PHOSPHATASE 86 U/L (40-136); BILIRUBIN,TOTAL 0.3 MG/DL (0.1-1.0); BUN/CREATININE RATIO 14; CALCIUM 9.4 MG/DL (8.5-10.1); GFR ESTIMATED > 60; GLUCOSE 386 MG/DL (70-105); MAGNESIUM 1.8 MG/DL (1.8-2.4)
[2018-12-01 23:17] LABS: ALBUMIN 3.9 GM/DL (3.2-4.5)
[2018-12-01] MEDS ORDERED: inSUlin (REGULAR) HUMAN 1 UNIT/0.01 ML (CHARGE PER UNIT) SC ONE (23:30)
[2018-12-02 00:55] VITALS: BP 142/70
[2018-12-02 15:01] LABS: CHOLESTEROL 183 MG/DL (< 200); HDL CHOLESTEROL 46 MG/DL (40-60); TRIGLYCERIDES 298 MG/DL (<150); VLDL CHOLESTEROL 60 MG/DL (5-40)
== END 2018-12-02 00:57 | disposition home or self-care (01) ==
LOC: MERGE 20:34 → ER FS 20:34 → EDBD 20:34 → ER FS 12-02 00:57
DX: R07.89 Other chest pain (principal); K21.9 Gastro-esophageal reflux disease without esophagitis; F17.210 Nicotine dependence, cigarettes, uncomplicated; F12.10 Cannabis abuse, uncomplicated; Z88.5 Allergy status to narcotic agent; Z79.82 Long term (current) use of aspirin
CPT/HCPCS: 36415; 71045; 80053; 80061; 80306; 81000; 83735; 83874; 83880; 84484; 84703; 85025; 85379; 85610; 85730; 93005; 96361; 96372; 96374

== ENCOUNTER 2019-02-17 16:27 | Emergency (ER) | payer BC, MEDICAID ==
[~2019-02-17] VITALS: Ht 167 cm; Wt 100.0 kg
[2019-02-17] MEDS ORDERED: KETOROLAC 60 MG/2 ML VIAL IM ONE (17:00)
[2019-02-17] MEDS ORDERED: DICL50TA4 PO (17:04)
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
[2019-02-17 17:09] VITALS: BP 118/73
== END 2019-02-17 17:16 | disposition home or self-care (01) ==
LOC: EDUNIT# 16:27 → ER FS 16:29
DX: G89.29 Other chronic pain (principal); M54.2 Cervicalgia; J44.9 Chronic obstructive pulmonary disease, unspecified; E11.9 Type 2 diabetes mellitus without complications; F41.9 Anxiety disorder, unspecified; F32.9 Major depressive disorder, single episode, unspecified; B19.20 Unspecified viral hepatitis C without hepatic coma; I25.2 Old myocardial infarction; G40.909 Epilepsy, unspecified, not intractable, without status epilepticus; Z21 Asymptomatic human immunodeficiency virus [HIV] infection status; Z87.39 Personal history of other diseases of the musculoskeletal system and connective tissue; Z88.5 Allergy status to narcotic agent; Z88.8 Allergy status to other drugs, medicaments and biological substances; Z79.82 Long term (current) use of aspirin; Z79.02 Long term (current) use of antithrombotics/antiplatelets; Z79.52 Long term (current) use of systemic steroids; Z79.4 Long term (current) use of insulin; Z95.5 Presence of coronary angioplasty implant and graft; Z90.710 Acquired absence of both cervix and uterus; Z98.51 Tubal ligation status; Z82.49 Family history of ischemic heart disease and other diseases of the circulatory system
CPT/HCPCS: 96372; 99284

== ENCOUNTER 2019-03-08 13:08 | Emergency (ER) | payer BC, MEDICAID ==
[~2019-03-08] VITALS: Ht 165 cm; Wt 100.0 kg
[~2019-03-08 13:08] MED LIST changes: +DICL50TA4 PO; +METF500T19 PO; -METF500T8 PO; +OMEP40CA27 PO; -OMEP40CA36 PO
[2019-03-08] MEDS: NITROGLYCERIN 0.4 MG SL TABS BTL 25'S SL PRN ×2 (13:24→17:20)
--- NOTE | 2019-03-08 13:34 | ED Chest Pain ---
General Chief Complaint: Chest Pain Stated Complaint: STEMI Source: patient Exam Limitations: no limitations (MALLORIE LAWS MD) History of Present Illness Date Seen by Provider: Mar 08, 2019 Time Seen by Provider: 13:06 Initial Comments Here by EMS with report of concerns of a possible STEMI with elevation in V3, V4 and V5. EMS. Patient complains of chest pain over the last 2 days fairly constant on the left side ointment through to her back and radiating to her shoulder. Briefly radiated to her neck. Patient has long-term history of IV drug abuse and is HIV positive. They were unable to get IV access. Patient did receive 324 mg of aspirin by mouth in route. Patient denies nausea, vomiting or diarrhea. Denies dysuria. Last IV drug use was 2 weeks ago. 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 SL HYDRAULIC ELEVATOR CONSTRUCTOR: No Associated Symptoms: No abdominal pain; back pain; No diaphoresis; fatigue, fever/chills; No nausea/vomiting; shortness of breath; No weakness (MALLORIE LAWS MD) Allergies and Home Medications Allergies Coded Allergies: hydromorphone (Verified Allergy, Unknown, b/p and oxygen level drop, 09/16/18) tramadol (Verified Allergy, Unknown, ANAPHYLAXIS, 09/16/18) Uncoded Allergies: air casts (Allergy, Unknown, 11/28/17) Home Medications Albuterol Sulfate 1 Puff Puff, 2 PUFF IH Q4H PRN for SHORTNESS OF BREATH, (Reported) Aspirin 81 Mg Tablet.dr, 81 MG PO HS, (Reported) Atorvastatin Calcium 40 Mg Tablet, 40 MG PO HS, (Reported) Bupropion HCl 150 Mg Tablet.er, 150 MG PO BID, (Reported) Clopidogrel Bisulfate 75 Mg Tablet, 75 MG PO HS, (Reported) Diclofenac Potassium 50 Mg Tablet, 50 MG PO TID Prescribed by: JAIME RUDOLPH on 02/17/19 1704 Dolutegravir Sodium 50 Mg Tablet, 50 MG PO HS, (Reported) Emtricitabine/Tenofov Alafenam 1 Each Tablet, 1 TAB PO HS, (Reported) Estradiol 2 Mg Tablet, 2 MG PO DAILY, (Reported) Furosemide 40 Mg Tablet, 40 MG PO DAILY, (Reported) Hydrocodone Bit/Acetaminophen 1 Ea Tablet, 1 EACH PO Q6H PRN for BREAK THRU FOOT PAIN Prescribed by: SABRINA FRANCO on 11/25/18 1723 Hydrocodone/Acetaminophen 1 Each Tablet, 1 TAB PO TID PRN for PAIN-MODERATE, (Reported) Insulin Aspart 100 Unit/1 Ml Susp, PER INSULIN PUMP, (Reported) Lisinopril 5 Mg Tablet, 5 MG PO HS, (Reported) Lisinopril 2.5 Mg Tablet, 2.5 MG PO DAILY, (Reported) Metformin HCl 500 Mg Tab.er.24h, 1,000 MG PO BID, (Reported) TAKES 2 (500MG) TABLETS Metoprolol Tartrate 25 Mg Tablet, 25 MG PO BID, (Reported) Omeprazole 40 Mg Capsule.dr, 40 MG PO DAILY, (Reported) Ondansetron 8 Mg Tab.rapdis, 8 MG PO Q4H PRN for NAUSEA/VOMITING-1ST LINE, (Reported) Pregabalin 75 Mg Capsule, 75 MG PO DAILY, (Reported) Pregabalin 75 Mg Capsule, 150 MG PO HS, (Reported) TAKES 2 (75MG) CAPSULES Sucralfate 1 Gm Tablet, 1 GM PO ACHS PRN for INDIGESTION, (Reported) Patient Home Medication List Home Medication List Reviewed: Yes (MALLORIE LAWS MD) Review of Systems Review of Systems Constitutional: see HPI, chills, malaise, weakness EENTM: No Symptoms Reported, Throat Pain Respiratory: Cough, Shortness of Air Cardiovascular: Chest Pain; Denies Palpitations Gastrointestinal: No Symptoms Reported Genitourinary: No Symptoms Reported Musculoskeletal: back pain, muscle pain Skin: change in color, lesions (multiple skin picking lesions.) Psychiatric/Neurological: Anxiety; Denies Headache (MALLORIE LAWS MD) All Other Systems Reviewed Negative Unless Noted: Yes (MALLORIE LAWS MD) Past Qklchbd-Xgwiec-Jiqxhm Hx Past Med/Social Hx: Reviewed Nursing Past Med/Soc Hx (MALLORIE LAWS MD) Patient Social History Alcohol Use: Denies Use Recreational Drug Use: Yes Drug of Choice: MJ methamphetamine Smoking Status: Current Everyday Smoker Type Used: Cigarettes 2nd Hand Smoke Exposure: No Recent Foreign Travel: No Contact w/Someone Who Travel: No Recent Hopitalizations: Yes (MALLORIE LAWS MD) Immunizations Up To Date Date of Pneumonia Vaccine: Feb 18, 2013 Date of Influenza Vaccine: Mar 06, 2018 (MALLORIE LAWS MD) Seasonal Allergies Seasonal Allergies: No (MALLORIE LAWS MD) Past Medical History Surgeries: Yes (April 2018- [place] with stent placement, L eye removal) Coronary Stent, Eye Surgery, Gallbladder, Hysterectomy, Tubal Ligation Respiratory: Yes Asthma, COPD Cardiac: Yes ([place] April 2018) Heart Attack Neurological: Yes (psuedoseizure when really stressed out) Seizure Disorder 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 Sexually Transmitted Disease: No HIV/AIDS: Yes Genitourinary: No Gastrointestinal: No Musculoskeletal: Yes (patient reports herniated, bulging cervical discs) Arthritis Endocrine: Yes Diabetes, Insulin dep HEENT: No Eye Injury Loss of Vision: Left Cancer: No Psychosocial: Yes Anxiety, Depression Integumentary: No Blood Disorders: Yes (Hep C, HIV) Adverse Reaction/Blood Tranf: No (MALLORIE LAWS MD) Family Medical History Reviewed Nursing Family Hx (MALLORIE LAWS MD) Cardiovascular disease 19 FATHER 19 MOTHER Diabetes mellitus 19 FATHER FH: lung disease 19 MOTHER Heart Disease, Diabetes, Hypertension (MALLORIE LAWS MD) Physical Exam Vital Signs Vital Signs - First Documented 03/08/19 03/08/19 13:20 13:35 Temp 37.1 Pulse 87 Resp 18 B/P (MAP) 160/96 (117) Pulse Ox 98 O2 Delivery Nasal Cannula FiO2 30 (TALI CUTLER APRN) Vital Signs Capillary Refill : (MALLORIE LAWS MD) Height, Weight, BMI Height: 5'5.00" Weight: 219lbs. 3.0oz. 99.369881en; 35.00 BMI Method:Stated General Appearance: WD/WN, Chronically ill, Mild Distress HEENT: PERRL/EOMI, Pharyngeal Erythema Neck: Non Tender, Supple Respiratory: Lungs Clear, Normal Breath Sounds Cardiovascular: Regular Rate, Rhythm, No Murmur Gastrointestinal: Non Tender, Soft Extremity: Normal Range of Motion, Non Tender Neurologic/Psychiatric: Alert, Oriented x3 Skin: Warm/Dry, Other (multiple excoriations and skin picking wounds as well as bruises throughout the body.) (MALLORIE LAWS MD) Focused Exam Lactate Level 03/08/19 13:31: Lactic Acid Level 1.30 (TALI CUTLER APRN) Lactic Acid Level Laboratory Tests Test 03/08/19 13:31 Lactic Acid Level 1.30 MMOL/L (0.50-2.00) (TALI CUTLER APRN) Procedures/Interventions I&D : Blade Size: 11 Progress Quarter-sized fluctuant abscess 10:00 position adjacent to the border of the areola left breast. Anesthetized with 0.75 mL of lidocaine without epinephrine, incision made with an 11 blade scalpel, bloody material expressed no purulence. Bruising to each rest, potentially related to her IV drug use with this abscess area potentially reflecting an extravasation of injected material. (TALI CUTLER APRN) Progress/Results/Core Measures Results/Orders Lab Results Laboratory Tests Test 03/08/19 13:31 03/08/19 16:23 Range/Units White Blood Count 8.9 4.3-11.0 10^3/uL Red Blood Count 4.74 4.35-5.85 10^6/uL Hemoglobin 13.5 11.5-16.0 G/DL Hematocrit 40 35-52 % Mean Corpuscular Volume 84 80-99 FL Mean Corpuscular Hemoglobin 29 25-34 PG Mean Corpuscular Hemoglobin Concent 34 32-36 G/DL Red Cell Distribution Width 13.1 10.0-14.5 % Platelet Count 249 130-400 10^3/uL Mean Platelet Volume 11.0 H 7.4-10.4 FL Neutrophils (%) (Auto) 50 42-75 % Lymphocytes (%) (Auto) 39 12-44 % Monocytes (%) (Auto) 9 0-12 % Eosinophils (%) (Auto) 2 0-10 % Basophils (%) (Auto) 0 0-10 % Neutrophils # (Auto) 4.5 1.8-7.8 X 10^3 Lymphocytes # (Auto) 3.4 1.0-4.0 X 10^3 Monocytes # (Auto) 0.8 0.0-1.0 X 10^3 Eosinophils # (Auto) 0.2 0.0-0.3 10^3/uL Basophils # (Auto) 0.0 0.0-0.1 10^3/uL Prothrombin Time 13.0 12.2-14.7 SEC INR Comment 1.0 0.8-1.4 Activated Partial Thromboplast Time 26 24-35 SEC Sodium Level 134 L 135-145 MMOL/L Potassium Level 4.1 3.6-5.0 MMOL/L Chloride Level 101 98-107 MMOL/L Carbon Dioxide Level 24 21-32 MMOL/L Anion Gap 9 5-14 MMOL/L Blood Urea Nitrogen 5 L 7-18 MG/DL Creatinine 0.70 0.60-1.30 MG/DL Estimat Glomerular Filtration Rate > 60 BUN/Creatinine Ratio 7 Glucose Level 332 H 70-105 MG/DL Lactic Acid Level 1.30 0.50-2.00 MMOL/L Calcium Level 8.9 8.5-10.1 MG/DL Corrected Calcium 9.1 8.5-10.1 MG/DL Magnesium Level 1.8 1.6-2.4 MG/DL Total Bilirubin 0.4 0.1-1.0 MG/DL Aspartate Amino Transf (AST/SGOT) 12 5-34 U/L Alanine Aminotransferase (ALT/SGPT) 18 0-55 U/L Alkaline Phosphatase 88 40-136 U/L Myoglobin 13.8 10.0-92.0 NG/ML Troponin I < 0.028 <0.028 NG/ML C-Reactive Protein High Sensitivity 1.14 H 0.00-0.50 MG/DL Total Protein 6.9 6.4-8.2 GM/DL Albumin 3.7 3.2-4.5 GM/DL (TALI CUTLER APRN) My Orders Orders - TALI CUTLER APRN Wound Culture (03/08/19 16:30) (TALI CUTLER APRN) Medications Given in ED Current Medications Medications Dose Ordered Sig/Randy Route Start Time Stop Time Status Last Admin Dose Admin Morphine Sulfate 2 mg ONCE ONCE IVP 03/08/19 14:45 03/08/19 14:46 DC 03/08/19 14:57 2 MG Nitroglycerin 0.4 mg UD PRN SL 03/08/19 13:15 03/08/19 13:24 0.4 MG (TALI CUTLER APRN) Vital Signs/I&O 03/08/19 03/08/19 13:20 13:35 Temp 37.1 Pulse 87 Resp 18 B/P (MAP) 160/96 (117) Pulse Ox 98 O2 Delivery Nasal Cannula Room Air FiO2 30 (TALI CUTLER APRN) Progress Progress Note : Progress Note Seen and evaluated. Unable to place IV peripherally due to very poor vascular access. Left peripherally inserted internal jugular venous catheter placed by Tali Cutler via ultrasound guidance under my supervision. Good flash and return. Chest pain protocol initiated. We will go ahead and get blood cultures and lactic acid given her HIV status and symptoms. EKG on arrival similar to previous EKG in November. We will await troponins. STEMI not noted on our EKG. Monitor patient. Patient refused nitroglycerin for the pain. 150: Initial troponin negative. We will repeat troponin now given she has history. She did get morphine 2 mg IV and Tylenol 1 g by mouth for pain earlier. Monitor patient. 1701: Repeat troponin negative. No indication of acute heart event. Pain is been going on for a few days. Patient complains of sore spot on the breast and this was evaluated and drained by Tali Cutler APRN. It does appear to be a sterile abscess and there is concerns at the injection site related. Given her HIV status so, we will go ahead and initiate Bactrim DS for 7 days. Discharged home with return precautions. Patient verbalize understanding instructions and agreement with plan. (MALLORIE LAWS MD) Initial ECG Impression Date: Mar 08, 2019 Initial ECG Impression Time: 13:10 Initial ECG Rate: 78 Initial ECG Rhythm: Normal Sinus Comment Sinus rhythm with left atrial abnormality. No evidence of ST elevation [place]. Similar to previous of 12/01/18. Interpreted by me. (MALLORIE LAWS MD) Diagnostic Imaging Diagonstic Imaging: Xray Plain Films/CT/US/NM/MRI: chest Comments NAME: [facility]SE[facility] REC#: [id number] PT STATUS: REG ER : 1975 PHYSICIAN: MALLORIE LAWS MD ADMIT DATE: 03/08/19/ER Signed Date of Exam: 03/08/19 CHEST 1 VIEW, AP/PA ONLY Patient History: Chest pain.. Technique: Single frontal view of the chest Comparison: 12/01/2018 FINDINGS: The lung volumes are normal. No focal consolidation is seen. The focal opacity in the right midlung is stable measuring 1.7 cm. No large pleural effusion or pneumothorax is seen. The cardiomediastinal silhouette is normal in size and contour. No acute osseous abnormality is seen. IMPRESSION: 1. Stable nodule in the right midlung. No new focal opacifications or consolidations. Dictated by: Dictated on workstation # [id number] Dict: 03/08/191425 Trans: 03/08/191426 Interpreted by: GISELA SANDOVAL DO Electronically signed by: GISELA ASNDOVAL DO 03/08/191426 (MALLORIE LAWS MD) Departure Impression Primary Impression: Chest pain Qualified Codes: R07.9 - Chest pain, unspecified Additional Impressions: Chest wall pain Breast abscess Disposition: HOME, SELF-CARE Condition: Stable Departure-Patient Inst. Decision time for Depature: 17:03 (MALLORIE LAWS MD) Referrals: Maksim VASQUEZ MD NO,LOCAL PHYSICIAN (PCP) Primary Care Physician Patient Instructions: Abscess Incision and Drainage, Chest Pain (DC), Chest Pain That Is Not Caused by the Heart (DC) Add. Discharge Instructions: All discharge instructions reviewed with patient and/or family. Voiced understanding. You may take ibuprofen 600 mg every 8 hours as needed for pain. You may also take Tylenol/acetaminophen 1000 mg every 8 hours as needed for pain. Follow-up with your Dr. in a few days for recheck. 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 Call his office in the morning. Take antibiotics as directed. Avoid drugs. Return for worse pain, fever, vomiting, we akness, breathing problems or other concerns as needed. Take your medications as previously prescribed. Scripts Sulfamethoxazole/Trimethoprim (Sulfamethoxazole-Tmp Ds Tablet) 1 Each Tablet 1 EACH PO BID, #14 TAB 0 Refills Prov: MALLORIE LAWS MD 03/08/19 MALLORIE LAWS MD Mar 08, 2019 13:34 TALI CUTLER APRN Mar 08, 2019 16:35
[2019-03-08 13:38] LABS: BASOPHILS % (AUTO) 0 % (0-10); EOSINOPHILS # (AUTO) 0.2 10^3/uL (0.0-0.3); EOSINOPHILS % (AUTO) 2 % (0-10); HEMATOCRIT 40 % (35-52); HEMOGLOBIN 13.5 G/DL (11.5-16.0); LYMPHOCYTES # (AUTO) 3.4 X 10^3 (1.0-4.0); LYMPHOCYTES % (AUTO) 39 % (12-44); MEAN CORPUSCULAR HEMOGLOBIN 29 PG (25-34); MEAN CORPUSCULAR HGB CONC 34 G/DL (32-36); MEAN CORPUSCULAR VOLUME 84 FL (80-99); MONOCYTES # (AUTO) 0.8 X 10^3 (0.0-1.0); MONOCYTES % (AUTO) 9 % (0-12); NEUTROPHILS # (AUTO) 4.5 X 10^3 (1.8-7.8); NEUTROPHILS % (AUTO) 50 % (42-75); PLATELET COUNT 249 10^3/uL (130-400); RED CELL DISTRIBUTION WIDTH 13.1 % (10.0-14.5); WHITE BLOOD COUNT 8.9 10^3/uL (4.3-11.0)
[2019-03-08 14:16] LABS: ALANINE AMINOTRANSFERASE 18 U/L (0-55); ALBUMIN 3.7 GM/DL (3.2-4.5); ALKALINE PHOSPHATASE 88 U/L (40-136); BILIRUBIN,TOTAL 0.4 MG/DL (0.1-1.0); BUN/CREATININE RATIO 7; CALCIUM 8.9 MG/DL (8.5-10.1); CARBON DIOXIDE 24 MMOL/L (21-32); CHLORIDE 101 MMOL/L (98-107); GFR ESTIMATED > 60; GLUCOSE 332 MG/DL (70-105); MAGNESIUM 1.8 MG/DL (1.6-2.4); POTASSIUM 4.1 MMOL/L (3.6-5.0); SODIUM 134 MMOL/L (135-145); TOTAL PROTEIN 6.9 GM/DL (6.4-8.2)
--- NOTE | 2019-03-08 14:28 | Diagnostic Imaging Report ---
Patient History: Chest pain.. Technique: Single frontal view of the chest Comparison: 12/01/2018 FINDINGS: The lung volumes are normal. No focal consolidation is seen. The focal opacity in the right midlung is stable measuring 1.7 cm. No large pleural effusion or pneumothorax is seen. The cardiomediastinal silhouette is normal in size and contour. No acute osseous abnormality is seen. IMPRESSION: 1. Stable nodule in the right midlung. No new focal opacifications or consolidations. Dictated by: Dictated on workstation # [id number]
[2019-03-08] MEDS ORDERED: ACETAMINOPHEN 500 MG TAB (TYLENOL) PO STA (14:44)
[2019-03-08] MEDS ORDERED: morphine INJ 10 MG/ML 1ML (SYR OR VIAL) IVP ONE (14:45)
[2019-03-08] MEDS ORDERED: TRIM/SULFAMETH 160/800 (SEPTRA DS) TAB PO STA (16:59)
[2019-03-08] MEDS ORDERED: SULF-222 PO (17:05)
[2019-03-08 17:06] VITALS: BP 139/76
== END 2019-03-08 17:21 | disposition home or self-care (01) ==
LOC: EDUNIT# 13:08 → ER 13:09
DX: N61.1 Abscess of the breast and nipple (principal); R07.89 Other chest pain; I25.2 Old myocardial infarction; J44.9 Chronic obstructive pulmonary disease, unspecified; G40.909 Epilepsy, unspecified, not intractable, without status epilepticus; E11.9 Type 2 diabetes mellitus without complications; F41.9 Anxiety disorder, unspecified; F32.9 Major depressive disorder, single episode, unspecified; F17.210 Nicotine dependence, cigarettes, uncomplicated; Z95.5 Presence of coronary angioplasty implant and graft; Z88.5 Allergy status to narcotic agent; Z88.8 Allergy status to other drugs, medicaments and biological substances; Z79.82 Long term (current) use of aspirin; Z79.4 Long term (current) use of insulin; Z90.710 Acquired absence of both cervix and uterus; Z98.51 Tubal ligation status; Z82.49 Family history of ischemic heart disease and other diseases of the circulatory system
CPT/HCPCS: 36415; 71045; 80053; 83605; 83735; 83874; 84484; 85025; 85610; 85730; 86141; 87040; 87070; 87205; 93005; 93041; 96374

== ENCOUNTER 2019-09-04 18:40 | Emergency (ER) | payer BC, MEDICAID ==
[~2019-09-04] VITALS: Ht 165 cm; Wt 87.0 kg
[~2019-09-04 18:40] MED LIST changes: +ACHD5005 PO; +ACHYD1T PO; +HYDR-34; -HYDR-3812 PO; -HYDR-3816; -HYDR-3820 PO
--- OUTSIDE RECORDS SUMMARY | 2019-09-04 18:46 | XMS REPORT | Clinical Summary ---
Author Author [facility] Organization [facility] Address Unknown Phone Unavailable Care Team Providers Care Scuba Instructor Name Role Phone Benja Alvarez APRN-AEROSPACE MANAGER Unavailable [phone] Yesi Escudero NP Unavailable Katharina Yarbrough RN Unavailable Unavailable Mian Barraza RN Unavailable Unavailable Milly Sy RN Unavailable Unavailable Self, Referral PCP Unavailable Source Comments Some departments are not documenting in the electronic medical record. If you d o not see the information that you expected, contact Release of Information in [facility] Information Management department at [phone] for further assistan ce in locating additional records.[facility] Allergies Comments Active Allergy Reactions Severity [...] Health Maintenance Due Date Last Done Comments DTAP/TDAP VACCINES (1 - 1987 Tdap) HIV SCREENING 1991 HEPATITIS C SCREENING 1994 PHYSICAL (COMPREHENSIVE) 1994 EXAM CERVICAL CANCER SCREENING 1997 BREAST CANCER SCREENING 2016 INFLUENZA VACCINE 12/20/2019 Results Not on filefrom Last 3 Months Advance Directives 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
--- OUTSIDE RECORDS SUMMARY | 2019-09-04 18:47 | XMS REPORT | Continuity of Care Document ---
Author Organization Unknown Address Unknown Phone Unavailable Allergies Active Description Code Type Severity Reaction Onset Reported/Identified Relationship to Patient Clinical Status Yes hydromorphone [id number] Supa g Allergy Unknown N/A 11/05/2008 Yes air casts air casts Unknown N/A 06/26/2013 Yes air casts air casts Unknown N/A 11/28/2017 Yes hydromorphone [id number] Supa g Allergy Severe swelling 07/19/2018 Yes tramadol [id number] Drug Allergy Severe swelling 07/19/2018 Yes hydromorphone [id number] Supa g Allergy Unknown b/p and oxygen 09/16/2018 Yes tramadol [id number] Drug Allergy Unknown ANAPHYLAXIS 09/16/2018 Yes hydromorphone [id number] Supa g Allergy Unknown N/A 12/01/2018 Yes tramadol [id number] Drug Allergy Unknown N/A 12/01/2018 Medications There is no data. Problems Date Dx Coded Attending Type Code Diagnosis Diagnosed By 06/26/2013 TALI GOLDSMITH APRN Ot 845.00 SPRAIN OF ANKLE NOS 06/26/2013 TALI GOLDSMITH APRN Ot 959 .7 LOWER LEG INJURY NOS 06/26/2013 TALI GOLDSMITH APRN Ot E000.8 OTHER EXTERNAL CAUSE STATUS 06/26/2013 TALI GOLDSMITH APRN Ot E849.6 ACCIDENT IN PUBLIC BLDG 06/26/2013 TALI GOLDSMITH APRN Ot E885.9 FALL FROM SLIPPING, TRIPPING, OR STUMBLI 06/26/2013 Ot 845.00 SPR AIN OF ANKLE NOS 06/26/2013 Ot 959.7 LOWE R LEG INJURY NOS 06/26/2013 Ot E000.8 OT ER EXTERNAL CAUSE STATUS 06/26/2013 Ot E849.6 ACC IDENT IN PUBLIC BLDG 06/26/2013 Ot E885.9 FAL L FROM SLIPPING, TRIPPING, OR STUMBLI 08/11/2016 EMILY STRATTON, KATELYNN M Ot K92.1 [...] Ot R11.2 NAUSEA WITH VOMITING, UNSPECIFIED 08/11/2016 EMIYL STRATTON, KATELYNN M Ot Z01.818 ENCOUNTER FOR OTHER PREPROCEDURAL EXAMIN 08/14/2016 EMILY STRATTON, KATELYNN M Ot K20.8 OTHER ESOPHAGITIS 08/14/2016 EMILY STRATTON, KATELYNN M Ot K25.7 CHRONIC GASTRIC ULCER WITHOUT HEMORRHAGE 08/14/2016 EMILY STRATTON, KATELYNN M Ot K64.8 OTHER HEMORRHOIDS 08/14/2016 EMILY STRATTON, KATELYNN M Ot Z2 1 ASYMPTOMATIC HUMAN IMMUNODEFICIENCY VIRU 08/15/2016 PIERRE DIAZ MDVIER M Ot K20.8 OTHER ESOPHAGITIS 08/15/2016 KATELYNN DIAZ MD M Ot K25.7 CHRONIC GASTRIC ULCER WITHOUT HEMORRHAGE 08/15/2016 EMILY STRATTON, KATELYNN M Ot K64.8 OTHER HEMORRHOIDS 08/15/2016 EMILY STRATTON, KATELYNN M Ot Z2 1 ASYMPTOMATIC HUMAN IMMUNODEFICIENCY VIRU 08/23/2016 KATELYNN DIAZ MD M Ot K20.8 OTHER ESOPHAGITIS 08/23/2016 KATELYNN DIAZ MD M Ot K25.7 CHRONIC GASTRIC ULCER WITHOUT HEMORRHAGE 08/23/2016 EMILY STRATTON, KATELYNN M Ot K64.8 OTHER HEMORRHOIDS 08/23/2016 EMILY STRATTON, KATELYNN Schaeffer Ot Z2 1 ASYMPTOMATIC HUMAN IMMUNODEFICIENCY VIRU 10/18/2017 CARL ROJO MD Ot B19.20 UNSPECIFIED VIRAL HEPATITIS C WITHOUT HE 10/18/2017 CARL ROJO MD Ot F31 .9 BIPOLAR DISORDER, UNSPECIFIED 10/18/2017 CARL ROJO MD Ot F41 .9 ANXIETY DISORDER, UNSPECIFIED 10/18/2017 CARL ROJO MD Ot F43.10 POST-TRAUMATIC STRESS DISORDER, UNSPECIF 10/18/2017 CARL ROJO MD Ot G40.909 EPILEPSY, UNSP, NOT INTRACTABLE, WITHOUT 10/18/2017 CARL ROJO MD Ot J44 .9 CHRONIC OBSTRUCTIVE PULMONARY DISEASE, U 10/18/2017 CARL ROJO MD Ot R11.10 VOMITING, UNSPECIFIED 10/18/2017 CARL ROJO MD Ot R11 .2 NAUSEA WITH VOMITING, UNSPECIFIED 10/18/2017 CARL ROJO MD Ot Z79 .4 CORRECTION (CURRENT) USE OF INSULIN 10/18/2017 CARL ROJO MD Ot Z88 .6 ALLERGY STATUS TO ANALGESIC AGENT STATUS 10/18/2017 CARL ROJO MD Ot Z88 .8 ALLERGY STATUS TO OTH DRUG/MEDS/BIOL SUB 10/18/2017 CARL ROJO MD Ot Z98.51 TUBAL LIGATION STATUS 10/22/2017 CARL ROJO MD Ot B19.20 UNSPECIFIED VIRAL HEPATITIS C WITHOUT HE 10/22/2017 CARL ROJO MD Ot F31 .9 BIPOLAR DISORDER, UNSPECIFIED 10/22/2017 CARL ROJO MD Ot F41 .9 ANXIETY DISORDER, UNSPECIFIED 10/22/2017 CARL ROJO MD Ot F43.10 POST-TRAUMATIC STRESS DISORDER, UNSPECIF 10/22/2017 CARL ROJO MD Ot G40.909 EPILEPSY, UNSP, NOT INTRACTABLE, WITHOUT 10/22/2017 CARL ROJO MD Ot J44 .9 CHRONIC OBSTRUCTIVE PULMONARY DISEASE, U 10/22/2017 CARL ROJO MD Ot R11.10 VOMITING, UNSPECIFIED 10/22/2017 CARL ROJO MD Ot R11 .2 NAUSEA WITH VOMITING, UNSPECIFIED 10/22/2017 CARL ROJO MD Ot Z79 .4 [place] ROOM (CURRENT) USE OF INSULIN 10/22/2017 CARL ROJO MD Ot Z88 .6 ALLERGY STATUS TO ANALGESIC AGENT STATUS 10/22/2017 CARL ROJO MD Ot Z88 .8 ALLERGY STATUS TO OTH DRUG/MEDS/BIOL SUB 10/22/2017 CARL ROJO MD Ot Z98.51 TUBAL LIGATION STATUS 11/17/2017 CHAPARRO KELLEY MD Ot E11. 9 TYPE 2 DIABETES MELLITUS WITHOUT COMPLIC 11/17/2017 CHAPARRO KELLEY MD Ot F12. 90 CANNABIS USE, UNSPECIFIED, UNCOMPLICATED 11/17/2017 CHAPARRO KELLEY MD Ot F17.210 NICOTINE DEPENDENCE, CIGARETTES, UNCOMPL 11/17/2017 CHAPARRO KELLEY MD Ot F31. 9 BIPOLAR DISORDER, UNSPECIFIED 11/17/2017 CHAPARRO KELLEY MD Ot F41. 9 ANXIETY DISORDER, UNSPECIFIED 11/17/2017 CHAPARRO KELLEY MD Ot F43. 10 POST-TRAUMATIC STRESS DISORDER, UNSPECIF 11/17/2017 CHAPARRO KELLEY MD Ot G40.909 EPILEPSY, UNSP, NOT INTRACTABLE, WITHOUT 11/17/2017 CHAPARRO KELLEY MD Ot J44. 9 CHRONIC OBSTRUCTIVE PULMONARY DISEASE, U 11/17/2017 CHAPARRO KELLEY MD Ot M54. 2 CERVICALGIA 11/17/2017 CHAPARRO KELLEY MD Ot M54. 9 DORSALGIA, UNSPECIFIED 11/17/2017 CHAPARRO KELLEY MD Ot R51 HEADACHE 11/17/2017 CHAPARRO KELLEY MD Ot Z21 ASYMPTOMATIC HUMAN IMMUNODEFICIENCY VIRU 11/17/2017 CHAPARRO KELLEY MD Ot Z79. 4 [place] ROOM (CURRENT) USE OF INSULIN 11/17/2017 CHAPARRO KELLEY MD Ot Z88. 6 ALLERGY STATUS TO ANALGESIC AGENT STATUS 11/17/2017 CHAPARRO KELLEY MD Ot Z98. 51 TUBAL LIGATION STATUS 11/20/2017 CHAPARRO KELLEY MD Ot E11. 9 TYPE 2 DIABETES MELLITUS WITHOUT COMPLIC 11/20/2017 CHAPARRO KELLEY MD Ot F12. 90 CANNABIS USE, UNSPECIFIED, UNCOMPLICATED 11/20/2017 CHAPARRO KELLEY MD Ot F17.210 NICOTINE DEPENDENCE, CIGARETTES, UNCOMPL 11/20/2017 CHAPARRO KELLEY MD Ot F31. 9 BIPOLAR DISORDER, UNSPECIFIED 11/20/2017 CHAPARRO KELLEY MD Ot F41. 9 ANXIETY DISORDER, UNSPECIFIED 11/20/2017 CHAPARRO KELLEY MD Ot F43. 10 POST-TRAUMATIC STRESS DISORDER, UNSPECIF 11/20/2017 CHAPARRO KELLEY MD Ot G40.909 EPILEPSY, UNSP, NOT INTRACTABLE, WITHOUT 11/20/2017 CHAPARRO KELLEY MD Ot J44. 9 CHRONIC OBSTRUCTIVE PULMONARY DISEASE, U 11/20/2017 CHAPARRO KELLEY MD Ot M54. 2 CERVICALGIA 11/20/2017 CHAPARRO KELLEY MD Ot M54. 9 DORSALGIA, UNSPECIFIED 11/20/2017 CHAPARRO KELLEY MD Ot R51 HEADACHE 11/20/2017 CHAPARRO KELLEY MD Ot Z21 ASYMPTOMATIC HUMAN IMMUNODEFICIENCY VIRU 11/20/2017 CHAPARRO KELLEY MD Ot Z79. 4 [place] ROOM (CURRENT) USE OF INSULIN 11/20/2017 CHAPARRO KELLEY MD Ot Z88. 6 ALLERGY STATUS TO ANALGESIC AGENT STATUS 11/20/2017 CHAPARRO KELLEY MD Ot Z98. 51 TUBAL LIGATION STATUS 11/23/2017 CHAPARRO KELLEY MD Ot E11. 9 TYPE 2 DIABETES MELLITUS WITHOUT COMPLIC 11/23/2017 CHAPARRO KELLEY MD Ot F12. 90 CANNABIS USE, UNSPECIFIED, UNCOMPLICATED 11/23/2017 CHAPARRO KELLEY MD Ot F17.210 NICOTINE DEPENDENCE, CIGARETTES, UNCOMPL 11/23/2017 CHAPARRO KELLEY MD Ot F31. 9 BIPOLAR DISORDER, UNSPECIFIED 11/23/2017 CHAPARRO KELLEY MD Ot F41. 9 ANXIETY DISORDER, UNSPECIFIED 11/23/2017 CHAPARRO KELLEY MD Ot F43. 10 POST-TRAUMATIC STRESS DISORDER, UNSPECIF 11/23/2017 CHAPARRO KELLEY MD Ot G40.909 EPILEPSY, UNSP, NOT INTRACTABLE, WITHOUT 11/23/2017 CHAPARRO KELLEY MD Ot J44. 9 CHRONIC OBSTRUCTIVE PULMONARY DISEASE, U 11/23/2017 CHAPARRO KELLEY MD Ot M54. 2 CERVICALGIA 11/23/2017 CHAPARRO KELELY MD Ot M54. 9 DORSALGIA, UNSPECIFIED 11/23/2017 CHAPARRO KELLEY MD Ot R51 HEADACHE 11/23/2017 CHAPARRO KELLEY MD Ot Z21 ASYMPTOMATIC HUMAN IMMUNODEFICIENCY VIRU 11/23/2017 CHAPARRO KELLEY MD Ot Z79. 4 CORRECTION (CURRENT) USE OF INSULIN 11/23/2017 CHAPARRO KELLEY MD Ot Z88. 6 ALLERGY STATUS TO ANALGESIC AGENT STATUS 11/23/2017 CHAPARRO KELLEY MD Ot Z98. 51 TUBAL LIGATION STATUS 11/23/2017 KEN JAVIER DO Ot N76.4 ABSCESS OF VULVA 11/26/2017 YAYA DO KEN K Ot N76.4 ABSCESS OF VULVA 11/29/2017 VERA [...] R07.89 OTHER CHEST PAIN 12/18/2017 MALLORIE LAWS MD, Ot Z21 ASYMPTOMATIC HUMAN IMMUNODEFICIENCY VIRU 12/18/2017 MALLORIE LAWS MD, Ot Z79.4 CORRECTION (CURRENT) USE OF INSULIN 12/18/2017 MALLORIE LAWS MD, Ot Z82.49 FAMILY HX OF ISCHEM HEART DIS AND OTH DI 12/18/2017 MALLORIE LAWS MD Ot Z88.5 ALLERGY STATUS TO NARCOTIC AGENT STATUS 12/18/2017 MALLORIE LAWS MD, Ot Z88.6 ALLERGY STATUS TO ANALGESIC AGENT STATUS 12/18/2017 MALLORIE LAWS MD, Ot Z98.51 TUBAL LIGATION STATUS 02/25/2018 CHRISTINA STRATTON, Maksim SMITH Ot E11 .9 TYPE 2 DIABETES MELLITUS WITHOUT COMPLIC 02/25/2018 Maksim VASQUEZ MD Ot I07 .1 RHEUMATIC TRICUSPID INSUFFICIENCY 02/25/2018 Maksim VASQUEZ MD Ot I10 ESSENTIAL (PRIMARY) HYPERTENSION 02/25/2018 Maksim VASQUEZ MD Ot I25.10 ATHSCL HEART DISEASE OF [place] CORONARY 02/25/2018 Maksim VASQUEZ MD Ot I42 .8 OTHER CARDIOMYOPATHIES 02/25/2018 CHRISTINA STRATTON, Maksim SMITH Ot Z72 .0 TOBACCO USE 04/09/2018 SKIP HALLMAN Ot B19.20 UNSPECIFIED VIRAL HEPATITIS C WITHOUT HE 04/09/2018 SKIP HALLMAN Ot B34.9 VIRAL INFECTION, UNSPECIFIED 04/09/2018 SKIP HALLMAN Ot F12.10 CANNABIS ABUSE, UNCOMPLICATED 04/09/2018 SKIP HALLMAN Ot F15.10 OTHER STIMULANT ABUSE, UNCOMPLICATED 04/09/2018 SKIP HALLMAN Ot F17.210 NICOTINE DEPENDENCE, CIGARETTES, UNCOMPL 04/09/2018 SKIP HALLMAN Ot F31.9 BIPOLAR DISORDER, UNSPECIFIED 04/09/2018 SKIP HALLMAN Ot F41.9 ANXIETY DISORDER, UNSPECIFIED 04/09/2018 SKIP HALLMAN Ot F43.10 POST-TRAUMATIC STRESS DISORDER, UNSPECIF 04/09/2018 SKIP HALLMAN Ot G40.909 EPILEPSY, UNSP, NOT INTRACTABLE, WITHOUT 04/09/2018 SKIP HALLMAN Ot J44.9 CHRONIC OBSTRUCTIVE PULMONARY DISEASE, U 04/09/2018 BERNOT, SKIP Ot R05 COUGH 04/09/2018 VIJI, SKIP Ot Z21 ASYMPTOMATIC HUMAN IMMUNODEFICIENCY VIRU 04/09/2018 LANI HALLMANIS Ot Z79.4 CORRECTION (CURRENT) USE OF INSULIN 04/09/2018 LANI HALLMANIS Ot Z88.6 ALLERGY STATUS TO ANALGESIC AGENT STATUS 04/09/2018 LANI HALLMANIS Ot Z88.8 ALLERGY STATUS TO OTH DRUG/MEDS/BIOL SUB 04/09/2018 LANI HALLMANIS Ot Z98.51 TUBAL LIGATION STATUS 04/11/2018 LANI HALLMANIS Ot B19.20 UNSPECIFIED VIRAL HEPATITIS [...] Ot F43.10 POST-TRAUMATIC STRESS DISORDER, UNSPECIF 04/11/2018 LANI HALLMANIS Ot G40.909 EPILEPSY, UNSP, NOT INTRACTABLE, WITHOUT 04/11/2018 LANI HALLMANIS Ot J44.9 CHRONIC OBSTRUCTIVE PULMONARY DISEASE, U 04/11/2018 SKIP HALLMAN Ot R05 COUGH 04/11/2018 LANI HALLMANIS Ot Z21 ASYMPTOMATIC HUMAN IMMUNODEFICIENCY VIRU 04/11/2018 LANI HALLMANIS Ot Z79.4 C[place] ROOM (CURRENT) USE OF INSULIN 04/11/2018 LANI HALLMANIS Ot Z88.6 ALLERGY STATUS TO ANALGESIC AGENT STATUS 04/11/2018 LANI HALLMANIS Ot Z88.8 ALLERGY STATUS TO OTH DRUG/MEDS/BIOL SUB 04/11/2018 LANI HALLMANIS Ot Z98.51 TUBAL LIGATION STATUS 04/15/2018 LANI HALLMANIS Ot B19.20 UNSPECIFIED VIRAL HEPATITIS C WITHOUT HE 04/15/2018 LANI HALLMANIS Ot B34.9 VIRAL INFECTION, UNSPECIFIED 04/15/2018 LANI HALLMANIS Ot F12.10 CANNABIS ABUSE, UNCOMPLICATED 04/15/2018 MAGGIEALMAZLANIIS Ot F15.10 OTHER STIMULANT ABUSE, UNCOMPLICATED 04/15/2018 VIJI SKIP Ot F17.210 NICOTINE DEPENDENCE, CIGARETTES, UNCOMPL 04/15/2018 LANI HALLMANIS Ot F31.9 BIPOLAR DISORDER, UNSPECIFIED 04/15/2018 LANI HALLMANIS Ot F41.9 ANXIETY DISORDER, UNSPECIFIED 04/15/2018 LANI HALLAMNIS Ot F43.10 POST-TRAUMATIC STRESS DISORDER, UNSPECIF 04/15/2018 SKIP HALLMAN Ot G40.909 EPILEPSY, UNSP, NOT INTRACTABLE, WITHOUT 04/15/2018 SKIP HALLMAN Ot J44.9 CHRONIC OBSTRUCTIVE PULMONARY DISEASE, U 04/15/2018 SKIP HALLMAN Ot R05 COUGH 04/15/2018 LANI HALLMANIS Ot Z21 ASYMPTOMATIC HUMAN IMMUNODEFICIENCY VIRU 04/15/2018 SKIP HALLMAN Ot Z79.4 C[place] ROOM (CURRENT) USE OF INSULIN 04/15/2018 SKIP HALLMAN Ot Z88.6 ALLERGY STATUS TO ANALGESIC AGENT STATUS 04/15/2018 LANI HALLMANIS Ot Z88.8 ALLERGY STATUS TO OTH DRUG/MEDS/BIOL SUB 04/15/2018 VIJI SKIP Ot Z98.51 TUBAL LIGATION STATUS 05/06/2018 Maksim VASQUEZ MD Ot B20 HUMAN IMMUNODEFICIENCY VIRUS [HIV] DISEA 05/06/2018 Maksim VASQUEZ MD Ot E10.59 TYPE 1 DIABETES MELLITUS WITH OTH CIRCUL 05/06/2018 Maksim VASQUEZ MD Ot E10.65 TYPE 1 DIABETES MELLITUS WITH HYPERGLYCE 05/06/2018 Maksim VASQUEZ MD Ot E78 .5 HYPERLIPIDEMIA, UNSPECIFIED 05/06/2018 Maksim VASQUEZ MD Ot E83.39 OTHER DISORDERS OF PHOSPHORUS METABOLISM 05/06/2018 Maksim VASQUEZ MD Ot E83.42 HYPOMAGNESEMIA 05/06/2018 Maksim VASQUEZ MD Ot E87 .1 HYPO-OSMOLALITY AND HYPONATREMIA 05/06/2018 Maksim VASQUEZ MD Ot F15.10 OTHER STIMULANT ABUSE, UNCOMPLICATED 05/06/2018 Maksim VASQUEZ MD Ot F17.210 NICOTINE DEPENDENCE, CIGARETTES, UNCOMPL 05/06/2018 Maksim VASQUEZ MD Ot F31 .9 BIPOLAR DISORDER, UNSPECIFIED 05/06/2018 Maksim VASQUEZ MD, Ot F41 .9 ANXIETY DISORDER, UNSPECIFIED 05/06/2018 Maksim VASQUEZ MD Ot F43.10 POST-TRAUMATIC STRESS DISORDER, UNSPECIF 05/06/2018 Maksim VASQUEZ MD, Ot I10 ESSENTIAL (PRIMARY) HYPERTENSION 05/06/2018 Maksim VASQUEZ MD, Ot I21 .3 ST ELEVATION (STEMI) MYOCARDIAL INFARCTI 05/06/2018 Maksim VASQUEZ MD Ot I25.10 ATHSCL HEART DISEASE OF [place] CORONARY 05/06/2018 Maksim VASQUEZ MD Ot I25 .2 OLD MYOCARDIAL INFARCTION 05/06/2018 Maksim VASQUEZ MD Ot I42 .9 CARDIOMYOPATHY, UNSPECIFIED 05/06/2018 Maksim VASQUEZ MD Ot J44 .9 CHRONIC OBSTRUCTIVE PULMONARY DISEASE, U 05/06/2018 Maksim VASQUEZ MD Ot M79.661 PAIN IN RIGHT LOWER LEG 05/06/2018 Maksim VASQUEZ MD Ot R91 .1 SOLITARY PULMONARY NODULE 05/06/2018 Maksim VASQUEZ MD Ot T82.855A STENOSIS OF CORONARY ARTERY STENT, INITI 05/06/2018 Maksim VASQUEZ MD Ot Z91.19 PATIENT'S NONCOMPLIANCE W [facility] 06/27/2018 VERA HARKINS MD (DDU) Ot Z02.71 ENCOUNTER FOR DISABILITY DETERMINATION 06/27/2018 Maksim VASQUEZ MD Ot E11 .9 TYPE 2 DIABETES MELLITUS WITHOUT COMPLIC 06/27/2018 Maksim VASQUEZ MD Ot I07 .1 RHEUMATIC TRICUSPID INSUFFICIENCY 06/27/2018 Maksim VASQUEZ MD Ot I10 ESSENTIAL (PRIMARY) HYPERTENSION 06/27/2018 Maksim VASQUEZ MD Ot I25.10 ATHSCL HEART DISEASE OF [place] CORONARY 06/27/2018 Maksim VASQUEZ MD Ot I42 .8 OTHER CARDIOMYOPATHIES 06/27/2018 CHRISTINA STRATTON, Maksim SMITH Ot Z72 .0 TOBACCO USE 06/28/2018 JERSEY HAQUE MD, Ot E11 .9 TYPE 2 DIABETES MELLITUS WITHOUT COMPLIC 06/28/2018 JERSEY HAQUE MD, Ot E78.00 PURE HYPERCHOLESTEROLEMIA, UNSPECIFIED 06/28/2018 JERSEY HAQUE MD, Ot F17.210 NICOTINE DEPENDENCE, CIGARETTES, UNCOMPL 06/28/2018 JERSEY HAQUE MD, Ot F31 .9 BIPOLAR DISORDER, UNSPECIFIED 06/28/2018 JERSEY HAQUE MD, Ot F41 .9 ANXIETY DISORDER, UNSPECIFIED 06/28/2018 JERSEY HAQUE MD, Ot F43.10 POST-TRAUMATIC STRESS DISORDER, UNSPECIF 06/28/2018 JERSEY HAQUE MD, Ot G40.909 EPILEPSY, UNSP, NOT INTRACTABLE, WITHOUT 06/28/2018 JERSEY HAQUE MD Ot I10 ESSENTIAL (PRIMARY) HYPERTENSION 06/28/2018 JERSEY HAQUE MD, Ot I25.10 ATHSCL HEART DISEASE OF [place] CORONARY 06/28/2018 JERSEY HAQUE MD, Ot I25 .2 OLD MYOCARDIAL INFARCTION 06/28/2018 JERSEY HAQUE MD, Ot R07 .9 CHEST PAIN, UNSPECIFIED 06/28/2018 JERSEY HAQUE MD, Ot R91 .8 OTHER NONSPECIFIC ABNORMAL FINDING OF [place] 06/28/2018 JERSEY HAQUE MD, Ot Z79 .4 [place] ROOM (CURRENT) USE OF INSULIN 06/28/2018 JERSEY HAQUE MD, Ot Z79.82 [place] ROOM (CURRENT) USE OF ASPIRIN 06/28/2018 JERSEY HAQUE MD, Ot Z79.899 OTHER [place] ROOM (CURRENT) DRUG THERAPY 06/28/2018 JERSEY HAQUE MD, Ot Z86.19 PERSONAL HISTORY OF OTHER INFECTIOUS AND 06/28/2018 JERSEY HAQUE MD, Ot Z91.19 PATIENT'S NONCOMPLIANCE W [facility] 06/28/2018 JERSEY HAQUE MD, Ot Z95 .5 PRESENCE OF CORONARY ANGIOPLASTY IMPLANT 06/28/2018 JERSEY HAQUE MD Ot E11 .9 TYPE 2 DIABETES MELLITUS WITHOUT COMPLIC 06/28/2018 JESREY HAQUE MD Ot E78.00 PURE HYPERCHOLESTEROLEMIA, UNSPECIFIED 06/28/2018 JERSEY HAQUE MD Ot F17.210 NICOTINE DEPENDENCE, CIGARETTES, UNCOMPL 06/28/2018 JERSEY HAQUE MD Ot F31 .9 BIPOLAR DISORDER, UNSPECIFIED 06/28/2018 JERSEY HAQUE MD, Ot F41 .9 ANXIETY DISORDER, UNSPECIFIED 06/28/2018 JERSEY HAQUE MD Ot F43.10 POST-TRAUMATIC STRESS DISORDER, UNSPECIF 06/28/2018 JERSEY HAQUE MD, Ot G40.909 EPILEPSY, UNSP, NOT INTRACTABLE, WITHOUT 06/28/2018 JERSEY HAQUE MD Ot I10 ESSENTIAL (PRIMARY) HYPERTENSION 06/28/2018 JERSEY HAQUE MD, Ot I25.10 ATHSCL HEART DISEASE OF [place] CORONARY 06/28/2018 JERSEY HAQUE MD, Ot I25 .2 OLD MYOCARDIAL INFARCTION 06/28/2018 JERSEY HAQUE MD, Ot R07 .9 CHEST PAIN, UNSPECIFIED 06/28/2018 JERSEY HAQUE MD Ot R91 .8 OTHER NONSPECIFIC ABNORMAL FINDING OF [place] 06/28/2018 JERSEY HAQUE MD Ot Z79 .4 CORRECTION (CURRENT) USE OF INSULIN 06/28/2018 JERSEY HAQUE MD Ot Z79.82 CORRECTION (CURRENT) USE OF ASPIRIN 06/28/2018 JERSEY HAQUE MD Ot Z79.899 OTHER CORRECTION (CURRENT) DRUG THERAPY 06/28/2018 JERSEY HAQUE MD Ot Z86.19 PERSONAL HISTORY OF OTHER INFECTIOUS AND 06/28/2018 JERSEY HAQUE MD Ot Z91.19 PATIENT'S NONCOMPLIANCE W [facility] 06/28/2018 JERSEY HAQUE MD Ot Z95 .5 PRESENCE OF CORONARY ANGIOPLASTY IMPLANT 07/12/2018 MARIYA PETERSEN DO Ot E11. 9 TYPE 2 DIABETES MELLITUS WITHOUT COMPLIC 07/12/2018 MARIYA PETERSEN DO Ot E78. 00 PURE HYPERCHOLESTEROLEMIA, UNSPECIFIED 07/12/2018 MARIYA PETERSEN DO Ot F12. 10 CANNABIS ABUSE, UNCOMPLICATED 07/12/2018 MARIYA PETERSEN DO Ot F15. 10 OTHER STIMULANT ABUSE, UNCOMPLICATED 07/12/2018 MARIYA PETERSEN DO Ot F17.210 NICOTINE DEPENDENCE, CIGARETTES, UNCOMPL 07/12/2018 MARIYA PETERSEN DO Ot F31. 9 BIPOLAR DISORDER, UNSPECIFIED 07/12/2018 MARIYA PETERSEN DO Ot F41. 9 ANXIETY DISORDER, UNSPECIFIED 07/12/2018 MARIYA PETERSEN DO Ot F43. 10 POST-TRAUMATIC STRESS DISORDER, UNSPECIF 07/12/2018 MARIYA PETERSEN DO Ot G40.909 EPILEPSY, UNSP, NOT INTRACTABLE, WITHOUT 07/12/2018 MARIYA PETERSEN DO Ot I10 ESSENTIAL (PRIMARY) HYPERTENSION 07/12/2018 MARIYA PETERSEN DO Ot I25. 10 ATHSCL HEART DISEASE OF [place] CORONARY 07/12/2018 MARIYA PETERSEN DO Ot I25. 2 OLD MYOCARDIAL INFARCTION 07/12/2018 MARIYA PETERSEN DO Ot J44. 9 CHRONIC OBSTRUCTIVE PULMONARY DISEASE, U 07/12/2018 MARIYA PETERSEN DO Ot L02.214 CUTANEOUS ABSCESS OF GROIN 07/12/2018 MARIYA PETERSEN DO Ot L03.314 CELLULITIS OF GROIN 07/12/2018 MARIYA PETERSEN DO Ot Z21 ASYMPTOMATIC HUMAN IMMUNODEFICIENCY VIRU 07/12/2018 MARIYA PETERSEN DO Ot Z79. 02 CORRECTION (CURRENT) USE OF ANTITHROMBOTI 07/12/2018 MARIYA PETERSEN DO Ot Z79. 4 [place] ROOM (CURRENT) USE OF INSULIN 07/12/2018 MARIYA PETERSEN DO Ot Z79. 51 CORRECTION (CURRENT) USE OF INHALED STERO 07/12/2018 MARIYA PETERSEN DO Ot Z79. 82 C[place] ROOM (CURRENT) USE OF ASPIRIN 07/12/2018 MARIYA PETERSEN DO Ot Z82. 49 FAMILY HX OF ISCHEM HEART DIS AND OTH DI 07/12/2018 MARIYA PETERSEN DO Ot Z88. 5 ALLERGY STATUS TO NARCOTIC AGENT STATUS 07/12/2018 MARIYA PETERSEN DO Ot Z88. 6 ALLERGY STATUS TO ANALGESIC AGENT STATUS 07/12/2018 MARIYA PETERSEN DO Ot Z98. 51 TUBAL LIGATION STATUS 07/12/2018 VERA HARKINS MD (U) Ot Z02.71 ENCOUNTER FOR DISABILITY DETERMINATION 07/12/2018 Maksim VASQUEZ MD Ot E11 .9 TYPE 2 DIABETES MELLITUS WITHOUT COMPLIC 07/12/2018 Maksim VASQUEZ MD Ot I07 .1 RHEUMATIC TRICUSPID INSUFFICIENCY 07/12/2018 Maksim VASQUEZ MD Ot I10 ESSENTIAL (PRIMARY) HYPERTENSION 07/12/2018 Maksim VASQUEZ MD Ot I25.10 ATHSCL HEART DISEASE OF [place] CORONARY 07/12/2018 Maksim VASQUEZ MD Ot I42 .8 OTHER CARDIOMYOPATHIES 07/12/2018 Maksim VASQUEZ MD Ot Z72 .0 TOBACCO USE 07/17/2018 MARIYA PETERSEN DO Ot E11. 9 TYPE 2 DIABETES MELLITUS WITHOUT COMPLIC 07/17/2018 MARIYA PETERSEN DO Ot E78. 00 PURE HYPERCHOLESTEROLEMIA, UNSPECIFIED 07/17/2018 MARIYA PETERSEN DO Ot F12. 10 CANNABIS ABUSE, UNCOMPLICATED 07/17/2018 MARIYA PETERSEN DO Ot F15. 10 OTHER STIMULANT ABUSE, UNCOMPLICATED 07/17/2018 MARIYA PETERSEN DO Ot F17.210 NICOTINE DEPENDENCE, CIGARETTES, UNCOMPL 07/17/2018 MARIYA PETERSEN DO Ot F31. 9 BIPOLAR DISORDER, UNSPECIFIED 07/17/2018 MARIYA PETERSEN DO Ot F41. 9 ANXIETY DISORDER, UNSPECIFIED 07/17/2018 MARIYA PETERSEN DO Ot F43. 10 POST-TRAUMATIC STRESS DISORDER, UNSPECIF 07/17/2018 MARIYA PETERSEN DO Ot G40.909 EPILEPSY, UNSP, NOT INTRACTABLE, WITHOUT 07/17/2018 MARIYA PETERSEN DO Ot I10 ESSENTIAL (PRIMARY) HYPERTENSION 07/17/2018 MARIYA PETERSEN DO Ot I25. 10 ATHSCL HEART DISEASE OF [place] CORONARY 07/17/2018 MARIYA PETERSEN DO Ot I25. 2 OLD MYOCARDIAL INFARCTION 07/17/2018 MARIYA PETERSEN DO Ot J44. 9 CHRONIC OBSTRUCTIVE PULMONARY DISEASE, U 07/17/2018 MARIYA PETERSEN DO Ot L02.214 CUTANEOUS ABSCESS OF GROIN 07/17/2018 MARIYA PETERSEN DO Ot L03.314 CELLULITIS OF GROIN 07/17/2018 MARIYA PETERSEN DO Ot Z21 ASYMPTOMATIC HUMAN IMMUNODEFICIENCY VIRU 07/17/2018 MARIYA PETERSEN DO Ot Z79. 02 CORRECTION (CURRENT) USE OF ANTITHROMBOTI 07/17/2018 MARIYA PETERSEN DO Ot Z79. 4 CORRECTION (CURRENT) USE OF INSULIN 07/17/2018 MARIYA PETERSEN DO Ot Z79. 51 CUTTER BANANA ROOM (CURRENT) USE OF INHALED STERO 07/17/2018 MARIYA PETERSEN DO Ot Z79. 82 CUTTER [place] ROOM (CURRENT) USE OF ASPIRIN 07/17/2018 MARIYA PETERSEN DO Ot Z82. 49 FAMILY HX OF ISCHEM HEART DIS AND OTH DI 07/17/2018 MARIYA PETERSEN DO Ot Z88. 5 ALLERGY STATUS TO NARCOTIC AGENT STATUS 07/17/2018 MARIYA PETERSEN DO Ot Z88. 6 ALLERGY STATUS TO ANALGESIC AGENT STATUS 07/17/2018 MARIYA PETERSEN DO Ot Z98. 51 TUBAL LIGATION STATUS 07/19/2018 Ot B19.0 UNSP ECIFIED VIRAL HEPATITIS WITH HEPATIC 07/19/2018 Ot F41.9 ANXI ETY DISORDER, UNSPECIFIED 07/19/2018 Ot I25.10 ATH SCL HEART DISEASE OF [place] CORONARY 07/19/2018 Ot R07.81 PLE URODYNIA 07/19/2018 Ot R91.8 OTHE R NONSPECIFIC ABNORMAL FINDING OF [place] 07/19/2018 Ot Z21 ASYMPT OMATIC HUMAN IMMUNODEFICIENCY VIRU 07/19/2018 Ot Z88.5 JESSICA RGY STATUS TO NARCOTIC AGENT STATUS 07/19/2018 Ot Z88.6 JESSICA RGY STATUS TO ANALGESIC AGENT STATUS 07/19/2018 Ot Z95.5 PRES ENCE OF CORONARY ANGIOPLASTY IMPLANT 07/19/2018 BRETT BRADEN DO Ot B19.0 UNSPECIFIED VIRAL HEPATITIS WITH HEPATIC 07/19/2018 BRETT BRADEN DO Ot F41.9 ANXIETY DISORDER, UNSPECIFIED 07/19/2018 BRETT BRADEN DO Ot I25.10 ATHSCL HEART DISEASE OF [place] CORONARY 07/19/2018 BRETT BRADEN DO Ot R07.81 PLEURODYNIA 07/19/2018 BRETT BRADEN DO Ot R91.8 OTHER NONSPECIFIC ABNORMAL FINDING OF [place] 07/19/2018 BRETT BRADEN DO Ot Z21 ASYMPTOMATIC HUMAN IMMUNODEFICIENCY VIRU 07/19/2018 BRETT BRADEN DO Ot Z88.5 ALLERGY STATUS TO NARCOTIC AGENT STATUS 07/19/2018 BRETT BRADEN DO Ot Z88.6 ALLERGY STATUS TO ANALGESIC AGENT STATUS 07/19/2018 BRETT BRADEN DO Ot Z95.5 PRESENCE OF CORONARY ANGIOPLASTY IMPLANT 08/16/2018 NATE MULLER DO Ot B19. 20 UNSPECIFIED VIRAL HEPATITIS C WITHOUT HE 08/16/2018 NATE MULLER DO T Ot E11. 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 9 MAJOR DEPRESSIVE DISORDER, SINGLE EPISOD 08/16/2018 NATE MULLER DO T Ot F41. 9 ANXIETY DISORDER, UNSPECIFIED 08/16/2018 NATE MULLER DO Ot G40.909 EPILEPSY, UNSP, NOT INTRACTABLE, WITHOUT 08/16/2018 NATE MULLER DO T Ot H66. 93 OTITIS MEDIA, UNSPECIFIED, BILATERAL 08/16/2018 NATE MULLER DO T Ot H92. 03 OTALGIA, BILATERAL 08/16/2018 NATE MULLER DO T Ot I10 ESSENTIAL (PRIMARY) HYPERTENSION 08/16/2018 NATE MULLER DO T Ot I25. 2 OLD MYOCARDIAL INFARCTION 08/16/2018 NATE MULLER DO Ot J06. 9 ACUTE UPPER RESPIRATORY INFECTION, UNSPE 08/16/2018 NATE MULLER DO Ot J44. 9 CHRONIC OBSTRUCTIVE PULMONARY DISEASE, U 08/16/2018 NATE MULLER DO T Ot Z21 ASYMPTOMATIC HUMAN IMMUNODEFICIENCY VIRU 08/16/2018 NATE MULLER DO Ot Z79. 02 CORRECTION (CURRENT) USE OF ANTITHROMBOTI 08/16/2018 NATE MULLER DO Ot Z79. 4 CORRECTION (CURRENT) USE OF INSULIN 08/16/2018 NATE MULLER DO T Ot Z79. 82 CUTTER [place] ROOM (CURRENT) USE OF ASPIRIN 08/16/2018 NATE MULLER DO Ot Z82. 49 FAMILY HX OF ISCHEM HEART DIS AND OTH DI 08/16/2018 NATE MULLER DO T Ot Z88. 5 ALLERGY STATUS TO NARCOTIC AGENT STATUS 08/16/2018 NATE MULLER DO T Ot Z88. 6 ALLERGY STATUS TO ANALGESIC AGENT STATUS 08/16/2018 NATE MULLER DO Ot Z95. 5 PRESENCE OF CORONARY ANGIOPLASTY IMPLANT 08/21/2018 NATE MULLER DO Ot B19. 20 UNSPECIFIED VIRAL HEPATITIS C WITHOUT HE 08/21/2018 NATE MULLER DO Ot E11. 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 9 MAJOR DEPRESSIVE DISORDER, SINGLE EPISOD 08/21/2018 JB MULLER DOED T Ot F41. 9 ANXIETY DISORDER, UNSPECIFIED 08/21/2018 NATE MULLER DO T Ot G40.909 EPILEPSY, UNSP, NOT INTRACTABLE, WITHOUT 08/21/2018 NATE MULLER DO T Ot H66. 93 OTITIS MEDIA, UNSPECIFIED, BILATERAL 08/21/2018 NATE MULLER DO T Ot H92. 03 OTALGIA, BILATERAL 08/21/2018 NATE MULLER DO T Ot I10 ESSENTIAL (PRIMARY) HYPERTENSION 08/21/2018 NATE MULLER DO T Ot I25. 2 OLD MYOCARDIAL INFARCTION 08/21/2018 NATE MULLER DO T Ot J06. 9 ACUTE UPPER RESPIRATORY INFECTION, UNSPE 08/21/2018 NATE MULLER DO Ot J44. 9 CHRONIC OBSTRUCTIVE PULMONARY DISEASE, U 08/21/2018 NATE MULLER DO T Ot Z21 ASYMPTOMATIC HUMAN IMMUNODEFICIENCY VIRU 08/21/2018 NATE MULLER DO Ot Z79. 02 CORRECTION (CURRENT) USE OF ANTITHROMBOTI 08/21/2018 NATE MULLER DO T Ot Z79. 4 CORRECTION (CURRENT) USE OF INSULIN 08/21/2018 NATE MULLER DO T Ot Z79. 82 CORRECTION (CURRENT) USE OF ASPIRIN 08/21/2018 NATE MULLER DO T Ot Z82. 49 FAMILY HX OF ISCHEM HEART DIS AND OTH DI 08/21/2018 NATE MULLER DO T Ot Z88. 5 ALLERGY STATUS TO NARCOTIC AGENT STATUS 08/21/2018 NATE MULLER DO T Ot Z88. 6 ALLERGY STATUS TO ANALGESIC AGENT STATUS 08/21/2018 NATE MULLER DO T Ot Z95. 5 PRESENCE OF CORONARY ANGIOPLASTY IMPLANT 08/23/2018 MARE BAILEY APRN Ot J45.909 UNSPECIFIED ASTHMA, UNCOMPLICATED 08/23/2018 MARE BAILEY APRN Ot R91.1 SOLITARY PULMONARY NODULE 08/23/2018 MARE BAILEY APRN Ot Z72.0 TOBACCO USE 09/02/2018 MARE BAILEY APRN Ot J45.909 UNSPECIFIED ASTHMA, UNCOMPLICATED 09/02/2018 MARE BAILEY APRN Ot R91.1 SOLITARY PULMONARY NODULE 09/02/2018 LEO, MARE E SUPPORT STAFF Ot Z72.0 TOBACCO USE 09/02/2018 CHAPARRO KELLEY MD Ot B19. 20 UNSPECIFIED VIRAL HEPATITIS C WITHOUT HE 09/02/2018 CHAPARRO KELLEY MD Ot E11. 9 TYPE 2 DIABETES MELLITUS WITHOUT COMPLIC 09/02/2018 CHAPARRO KELLEY MD Ot F12. 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 9 MAJOR DEPRESSIVE DISORDER, SINGLE EPISOD 09/02/2018 CHAPARRO KELLEY MD Ot F41. 9 ANXIETY DISORDER, UNSPECIFIED 09/02/2018 CHAPARRO KELLEY MD Ot G40.909 EPILEPSY, UNSP, NOT INTRACTABLE, WITHOUT 09/02/2018 CHAPARRO KELLEY MD Ot I25. 2 OLD MYOCARDIAL INFARCTION 09/02/2018 CHAPARRO KELLEY MD, Ot J44. 9 CHRONIC OBSTRUCTIVE PULMONARY DISEASE, U 09/02/2018 CHAPARRO KELLEY MD Ot K27. 9 PEPTIC ULC, SITE UNSP, UNSP AC OR CHR 09/02/2018 CHAPARRO KELLEY MD Ot R07. 9 CHEST PAIN, UNSPECIFIED 09/02/2018 CHAPARRO KELLEY MD Ot Z21 ASYMPTOMATIC HUMAN IMMUNODEFICIENCY VIRU 09/02/2018 CHAPARRO KELLEY MD Ot Z79. 02 CORRECTION (CURRENT) USE OF ANTITHROMBOTI 09/02/2018 CHAPARRO KELLEY MD Ot Z79. 4 CORRECTION (CURRENT) USE OF INSULIN 09/02/2018 CHAPARRO KELLEY MD Ot Z79. 82 CORRECTION (CURRENT) USE OF ASPIRIN 09/02/2018 CHAPARRO KELLEY MD Ot Z82. 49 FAMILY HX OF ISCHEM HEART DIS AND OTH DI 09/02/2018 CHAPARRO KELLEY MD Ot Z88. 5 ALLERGY STATUS TO NARCOTIC AGENT STATUS 09/02/2018 CHAPARRO KELLEY MD Ot Z88. 8 ALLERGY STATUS TO OTH DRUG/MEDS/BIOL SUB 09/02/2018 CHAPARRO KELLEY MD Ot Z95. 5 PRESENCE OF CORONARY ANGIOPLASTY IMPLANT 09/04/2018 CHAPARRO KELLEY MD Ot B19. 20 UNSPECIFIED VIRAL HEPATITIS C WITHOUT HE 09/04/2018 CHAPARRO KELLEY MD Ot E11. 9 TYPE 2 DIABETES MELLITUS WITHOUT COMPLIC 09/04/2018 CHAPARRO KELLEY MD Ot F12. 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 9 MAJOR DEPRESSIVE DISORDER, SINGLE EPISOD 09/04/2018 CHAPARRO KELLEY MD Ot F41. 9 ANXIETY DISORDER, UNSPECIFIED 09/04/2018 CHAPARRO KELLEY MD Ot G40.909 EPILEPSY, UNSP, NOT INTRACTABLE, WITHOUT 09/04/2018 CHAPARRO KELLEY MD Ot I25. 2 OLD MYOCARDIAL INFARCTION 09/04/2018 CHAPARRO KELLEY MD Ot J44. 9 CHRONIC OBSTRUCTIVE PULMONARY DISEASE, U 09/04/2018 CHAPARRO KELLEY MD Ot K27. 9 PEPTIC ULC, SITE UNSP, UNSP AC OR CHR 09/04/2018 CHAPARRO KELLEY MD Ot R07. 9 CHEST PAIN, UNSPECIFIED 09/04/2018 CHAPARRO KELLEY MD Ot Z21 ASYMPTOMATIC HUMAN IMMUNODEFICIENCY VIRU 09/04/2018 CHAPARRO KELLEY MD Ot Z79. 02 CORRECTION (CURRENT) USE OF ANTITHROMBOTI 09/04/2018 CHAPARRO KELLEY MD Ot Z79. 4 CORRECTION (CURRENT) USE OF INSULIN 09/04/2018 CHAPARRO KELLEY MD Ot Z79. 82 [place] ROOM (CURRENT) USE OF ASPIRIN 09/04/2018 CHAPARRO KELLEY MD Ot Z82. 49 FAMILY HX OF ISCHEM HEART DIS AND OTH DI 09/04/2018 CHAPARRO KELLEY MD Ot Z88. 5 ALLERGY STATUS TO NARCOTIC AGENT STATUS 09/04/2018 CHAPARRO KELLEY MD Ot Z88. 8 ALLERGY STATUS TO OTH DRUG/MEDS/BIOL SUB 09/04/2018 CHAPARRO KELLEY MD Ot Z95. 5 PRESENCE OF CORONARY ANGIOPLASTY IMPLANT 09/17/2018 JERSEY HAQUE MD Ot B19.20 UNSPECIFIED VIRAL HEPATITIS C WITHOUT HE 09/17/2018 JERSEY HAQUE MD Ot B20 HUMAN IMMUNODEFICIENCY VIRUS [HIV] DISEA 09/17/2018 JERSEY HAQUE MD Ot E11 .9 TYPE 2 DIABETES MELLITUS WITHOUT COMPLIC 09/17/2018 JERSEY HAQUE MD Ot F32 .9 MAJOR DEPRESSIVE DISORDER, SINGLE EPISOD 09/17/2018 JERSEY HAQUE MD Ot F41 .9 ANXIETY DISORDER, UNSPECIFIED 09/17/2018 JERSEY HAQUE MD Ot G40.909 EPILEPSY, UNSP, NOT INTRACTABLE, WITHOUT 09/17/2018 JERSEY HAQUE MD Ot I25 .2 OLD MYOCARDIAL INFARCTION 09/17/2018 JERSEY HAQUE MD Ot J44 .9 CHRONIC OBSTRUCTIVE PULMONARY DISEASE, U 09/17/2018 JERSEY HAQUE MD Ot M19.90 UNSPECIFIED OSTEOARTHRITIS, UNSPECIFIED 09/17/2018 JERSEY HAQUE MD Ot M50.20 OTHER CERVICAL DISC DISPLACEMENT, UNSP C 09/17/2018 JERSEY HAQUE MD Ot R10 .9 UNSPECIFIED ABDOMINAL PAIN 09/17/2018 JERSEY HAQUE MD Ot Z79 .4 [place] ROOM (CURRENT) USE OF INSULIN 09/17/2018 JERSEY HAQUE MD Ot Z95 .5 PRESENCE OF CORONARY ANGIOPLASTY IMPLANT 09/17/2018 JERSEY HAQUE MD Ot B19.20 UNSPECIFIED VIRAL HEPATITIS C WITHOUT HE 09/17/2018 JERSEY HAQUE MD Ot B20 HUMAN IMMUNODEFICIENCY VIRUS [HIV] DISEA 09/17/2018 JERSEY HAQUE MD Ot E11 .9 TYPE 2 DIABETES MELLITUS WITHOUT COMPLIC 09/17/2018 JERSEY HAQUE MD Ot F32 .9 MAJOR DEPRESSIVE DISORDER, SINGLE EPISOD 09/17/2018 JERSEY HAQUE MD Ot F41 .9 ANXIETY DISORDER, UNSPECIFIED 09/17/2018 JERSEY HAQUE MD Ot G40.909 EPILEPSY, UNSP, NOT INTRACTABLE, WITHOUT 09/17/2018 JERSEY HAQUE MD Ot I25 .2 OLD MYOCARDIAL INFARCTION 09/17/2018 JERSEY HAQUE MD Ot J44 .9 CHRONIC OBSTRUCTIVE PULMONARY DISEASE, U 09/17/2018 JERSEY HAQUE MD Ot M19.90 UNSPECIFIED OSTEOARTHRITIS, UNSPECIFIED 09/17/2018 JERSEY HAQUE MD Ot M50.20 OTHER CERVICAL DISC DISPLACEMENT, UNSP C 09/17/2018 JERSEY HAQUE MD Ot R10 .9 UNSPECIFIED ABDOMINAL PAIN 09/17/2018 JERSEY HAQUE MD Ot Z79 .4 CORRECTION (CURRENT) USE OF INSULIN 09/17/2018 JERSEY HAQUE MD Ot Z95 .5 PRESENCE OF CORONARY ANGIOPLASTY IMPLANT 09/17/2018 JERSEY HAQUE MD Ot B19.20 UNSPECIFIED VIRAL HEPATITIS C WITHOUT HE 09/17/2018 JERSEY HAQUE MD Ot B20 HUMAN IMMUNODEFICIENCY VIRUS [HIV] DISEA 09/17/2018 JERSEY HAQUE MD Ot E11 .9 TYPE 2 DIABETES MELLITUS WITHOUT COMPLIC 09/17/2018 JERSEY HAQUE MD Ot F32 .9 MAJOR DEPRESSIVE DISORDER, SINGLE EPISOD 09/17/2018 JERSEY HAQUE MD Ot F41 .9 ANXIETY DISORDER, UNSPECIFIED 09/17/2018 JERSEY HAQUE MD Ot G40.909 EPILEPSY, UNSP, NOT INTRACTABLE, WITHOUT 09/17/2018 JERSEY HAQUE MD Ot I25 .2 OLD MYOCARDIAL INFARCTION 09/17/2018 JERSEY HAQUE MD Ot J44 .9 CHRONIC OBSTRUCTIVE PULMONARY DISEASE, U 09/17/2018 JERSEY HAQUE MD Ot M19.90 UNSPECIFIED OSTEOARTHRITIS, UNSPECIFIED 09/17/2018 JERSEY HAQUE MD Ot M50.20 OTHER CERVICAL DISC DISPLACEMENT, UNSP C 09/17/2018 JERSYE HAQUE MD Ot R10 .9 UNSPECIFIED ABDOMINAL PAIN 09/17/2018 JERSEY HAQUE MD Ot Z79 .4 CORRECTION (CURRENT) USE OF INSULIN 09/17/2018 JERSEY HAQUE MD Ot Z95 .5 PRESENCE OF CORONARY ANGIOPLASTY IMPLANT 09/17/2018 JERSEY HAQUE MD Ot B19.20 UNSPECIFIED VIRAL HEPATITIS C WITHOUT HE 09/17/2018 JERSEY HAQUE MD Ot B20 HUMAN IMMUNODEFICIENCY VIRUS [HIV] DISEA 09/17/2018 JERSEY HAQUE MD Ot E11 .9 TYPE 2 DIABETES MELLITUS WITHOUT COMPLIC 09/17/2018 JERSEY HAQUE MD Ot F32 .9 MAJOR DEPRESSIVE DISORDER, SINGLE EPISOD 09/17/2018 JERSEY HAQUE MD, Ot F41 .9 ANXIETY DISORDER, UNSPECIFIED 09/17/2018 JERSEY HAQUE MD Ot G40.909 EPILEPSY, UNSP, NOT INTRACTABLE, WITHOUT 09/17/2018 JERSEY HAQUE MD Ot I25 .2 OLD MYOCARDIAL INFARCTION 09/17/2018 JERSEY HAQUE MD, Ot J44 .9 CHRONIC OBSTRUCTIVE PULMONARY DISEASE, U 09/17/2018 JERSEY HAQUE MD Ot M19.90 UNSPECIFIED OSTEOARTHRITIS, UNSPECIFIED 09/17/2018 JERSEY HAQUE MD Ot M50.20 OTHER CERVICAL DISC DISPLACEMENT, UNSP C 09/17/2018 JERSEY HAQUE MD Ot R10 .9 UNSPECIFIED ABDOMINAL PAIN 09/17/2018 JERSEY HAQUE MD, Ot Z79 .4 [place] ROOM (CURRENT) USE OF INSULIN 09/17/2018 JERSEY HAQUE MD Ot Z95 .5 PRESENCE OF CORONARY ANGIOPLASTY IMPLANT 09/17/2018 JERSEY HAQUE MD Ot B19.20 UNSPECIFIED VIRAL HEPATITIS C WITHOUT HE 09/17/2018 JERSEY HAQUE MD Ot B20 HUMAN IMMUNODEFICIENCY VIRUS [HIV] DISEA 09/17/2018 JERSEY HAQUE MD Ot E11 .9 TYPE 2 DIABETES MELLITUS WITHOUT COMPLIC 09/17/2018 JERSEY HAQUE MD Ot F12.90 CANNABIS USE, UNSPECIFIED, UNCOMPLICATED 09/17/2018 JERSEY HAQUE MD Ot F17.210 NICOTINE DEPENDENCE, CIGARETTES, UNCOMPL 09/17/2018 JERSEY HAQUE MD Ot F32 .9 MAJOR DEPRESSIVE DISORDER, SINGLE EPISOD 09/17/2018 JERSEY HAQUE MD Ot F41 .9 ANXIETY DISORDER, UNSPECIFIED 09/17/2018 JERSEY HAQUE MD Ot G40.909 EPILEPSY, UNSP, NOT INTRACTABLE, WITHOUT 09/17/2018 JERSEY HAQUE MD Ot I25 .2 OLD MYOCARDIAL INFARCTION 09/17/2018 JERSEY HAQUE MD Ot J44 .9 CHRONIC OBSTRUCTIVE PULMONARY DISEASE, U 09/17/2018 JERSEY HAQUE MD Ot K85.90 ACUTE PANCREATITIS WITHOUT NECROSIS OR I 09/17/2018 JERSEY HAQUE MD, Ot M19.91 PRIMARY OSTEOARTHRITIS, UNSPECIFIED SITE 09/17/2018 JERSEY HAQUE MD, Ot M50.20 OTHER CERVICAL DISC DISPLACEMENT, UNSP C 09/17/2018 JERSEY HAQUE MD, Ot Z79 .4 [place] ROOM (CURRENT) USE OF INSULIN 09/17/2018 JERSEY HAQUE MD Ot Z90.49 ACQUIRED ABSENCE OF OTHER SPECIFIED PART 09/17/2018 JERSEY HAQUE MD Ot Z95 .5 PRESENCE OF CORONARY ANGIOPLASTY IMPLANT 09/17/2018 JERSEY HAQUE MD, Ot B19.20 UNSPECIFIED VIRAL HEPATITIS C WITHOUT HE 09/17/2018 JERSEY HAQUE MD Ot B20 HUMAN IMMUNODEFICIENCY VIRUS [HIV] DISEA 09/17/2018 JERSEY HAQUE MD, Ot E11 .9 TYPE 2 DIABETES MELLITUS WITHOUT COMPLIC 09/17/2018 JERSEY HAQUE MD, Ot F12.90 CANNABIS USE, UNSPECIFIED, UNCOMPLICATED 09/17/2018 JERSEY HAQUE MD Ot F17.210 NICOTINE DEPENDENCE, CIGARETTES, UNCOMPL 09/17/2018 JERSEY HAQUE MD Ot F32 .9 MAJOR DEPRESSIVE DISORDER, SINGLE EPISOD 09/17/2018 JERSEY HAQUE MD Ot F41 .9 ANXIETY DISORDER, UNSPECIFIED 09/17/2018 JERSEY HAQUE MD Ot G40.909 EPILEPSY, UNSP, NOT INTRACTABLE, WITHOUT 09/17/2018 JERSEY HAQUE MD Ot I25 .2 OLD MYOCARDIAL INFARCTION 09/17/2018 JERSEY HAQUE MD Ot J44 .9 CHRONIC OBSTRUCTIVE PULMONARY DISEASE, U 09/17/2018 JERSEY HAQUE MD Ot K85.90 ACUTE PANCREATITIS WITHOUT NECROSIS OR I 09/17/2018 JERSEY HAQUE MD Ot M19.90 UNSPECIFIED OSTEOARTHRITIS, UNSPECIFIED 09/17/2018 JERSEY HAQUE MD Ot M19.91 PRIMARY OSTEOARTHRITIS, UNSPECIFIED SITE 09/17/2018 JERSEY HAQUE MD Ot M50.20 OTHER CERVICAL DISC DISPLACEMENT, UNSP C 09/17/2018 JERSEY HAQUE MD Ot R10 .9 UNSPECIFIED ABDOMINAL PAIN 09/17/2018 JERSEY HAQUE MD Ot Z79 .4 [place] ROOM (CURRENT) USE OF INSULIN 09/17/2018 JERSEY HAQUE MD Ot Z90.49 ACQUIRED ABSENCE OF OTHER SPECIFIED PART 09/17/2018 JERSEY HAQUE MD Ot Z95 .5 PRESENCE OF CORONARY ANGIOPLASTY IMPLANT 10/30/2018 MALLORIE LAWS MD Ot E11.9 TYPE 2 DIABETES MELLITUS WITHOUT COMPLIC 10/30/2018 MALLORIE LAWS MD Ot E78.00 PURE HYPERCHOLESTEROLEMIA, UNSPECIFIED 10/30/2018 MALLORIE LAWS MD Ot F12.10 CANNABIS ABUSE, UNCOMPLICATED 10/30/2018 MALLORIE LAWS MD, Ot F15.10 OTHER STIMULANT ABUSE, UNCOMPLICATED 10/30/2018 MALLORIE LAWS MD, Ot F17.210 NICOTINE DEPENDENCE, CIGARETTES, UNCOMPL 10/30/2018 MALLORIE LAWS MD, Ot F31.9 BIPOLAR DISORDER, UNSPECIFIED 10/30/2018 MALLORIE LAWS MD, Ot F41.9 ANXIETY DISORDER, UNSPECIFIED 10/30/2018 MALLORIE LAWS MD, Ot F43.10 POST-TRAUMATIC STRESS DISORDER, UNSPECIF 10/30/2018 MALLORIE LAWS MD Ot G40.909 EPILEPSY, UNSP, NOT INTRACTABLE, WITHOUT 10/30/2018 MALLORIE LAWS MD, Ot I21.9 ACUTE MYOCARDIAL INFARCTION, UNSPECIFIED 10/30/2018 MALLORIE LAWS MD, Ot J44.9 CHRONIC OBSTRUCTIVE PULMONARY DISEASE, U 10/30/2018 MALLORIE LAWS MD Ot R07.89 OTHER CHEST PAIN 10/30/2018 MALLORIE LAWS MD Ot Z21 ASYMPTOMATIC HUMAN IMMUNODEFICIENCY VIRU 10/30/2018 MALLORIE LAWS MD, Ot Z79.4 CORRECTION (CURRENT) USE OF INSULIN 10/30/2018 MALLORIE LAWS MD, Ot Z82.49 FAMILY HX OF ISCHEM HEART DIS AND OTH DI 10/30/2018 MALLORIE LAWS MD, Ot Z88.5 ALLERGY STATUS TO NARCOTIC AGENT STATUS 10/30/2018 MALLORIE LAWS MD, Ot Z88.6 ALLERGY STATUS TO ANALGESIC AGENT STATUS 10/30/2018 MALLORIE LAWS MD Ot Z98.51 TUBAL LIGATION STATUS 11/05/2018 Maksim VASQUEZ MD Ot E11 .9 TYPE 2 DIABETES MELLITUS WITHOUT COMPLIC 11/05/2018 Maksim VASQUEZ MD Ot I07 .1 RHEUMATIC TRICUSPID INSUFFICIENCY 11/05/2018 Maksim VASQUEZ MD Ot I10 ESSENTIAL (PRIMARY) HYPERTENSION 11/05/2018 Maksim VASQUEZ MD, Ot I25.10 ATHSCL HEART DISEASE OF [place] CORONARY 11/05/2018 Maksim VASQUEZ MD, Ot I42 .8 OTHER CARDIOMYOPATHIES 11/05/2018 Maksim VASQUEZ MD, Ot Z72 .0 TOBACCO USE 11/30/2018 SABRINA FRANCO DO, Ot E11.9 TYPE 2 DIABETES MELLITUS WITHOUT COMPLIC 11/30/2018 SABRINA FRANCO DO, Ot F32.9 MAJOR DEPRESSIVE DISORDER, SINGLE EPISOD 11/30/2018 SABRINA FRANCO DO, Ot F41.9 ANXIETY DISORDER, UNSPECIFIED 11/30/2018 SABRINA FRANCO DO, Ot G40.909 EPILEPSY, UNSP, NOT INTRACTABLE, WITHOUT 11/30/2018 SABRINA FRANCO DO, Ot I25.2 OLD MYOCARDIAL INFARCTION 11/30/2018 SABRINA FRANCO DO, Ot J44.9 CHRONIC OBSTRUCTIVE PULMONARY DISEASE, U 11/30/2018 SABRINA FRANCO DO, Ot S93.602A UNSPECIFIED SPRAIN OF LEFT FOOT, INITIAL 11/30/2018 SABRINA FRANCO DO, Ot S99.922A UNSPECIFIED INJURY OF LEFT FOOT, INITIAL 11/30/2018 SABRINA FRANCO DO, Ot X50.1XXA OVEREXERTION FROM PROLONGED STATIC OR AW 11/30/2018 SABRINA FRANCO DO, Ot Z79.4 [place] ROOM (CURRENT) USE OF INSULIN 11/30/2018 SABRINA FRANCO DO, Ot Z79.52 CORRECTION (CURRENT) USE OF SYSTEMIC STER 11/30/2018 SABRINA FRANCO DO, Ot Z79.82 [place] ROOM (CURRENT) USE OF ASPIRIN 11/30/2018 SABRINA FRANCO DO, Ot Z82.49 FAMILY HX OF ISCHEM HEART DIS AND OTH DI 11/30/2018 SABRINA FRANCO DO, Ot Z88.5 ALLERGY STATUS TO NARCOTIC AGENT STATUS 11/30/2018 SABRINA FRANCO DO, Ot Z90.710 ACQUIRED ABSENCE OF BOTH CERVIX AND UTER 11/30/2018 SALVADOR DO, SABRINA D Ot Z95.5 PRESENCE OF CORONARY ANGIOPLASTY IMPLANT 11/30/2018 SABRINA FRANCO DO Shani Ot Z98.51 TUBAL LIGATION STATUS 12/02/2018 Ot F12.10 CAN NABIS ABUSE, UNCOMPLICATED 12/02/2018 Ot F17.210 NI COTINE DEPENDENCE, CIGARETTES, UNCOMPL 12/02/2018 Ot K21.9 JUAN RO-ESOPHAGEAL REFLUX DISEASE WITHOUT 12/02/2018 Ot R07.89 OTH ER CHEST PAIN 12/02/2018 Ot R07.9 CHES T PAIN, UNSPECIFIED 12/02/2018 Ot Z79.82 CHIOMA G TERM (CURRENT) USE OF ASPIRIN 12/02/2018 Ot Z88.5 JESSICA RGY STATUS TO NARCOTIC AGENT STATUS 12/09/2018 Ot F12.10 CAN NABIS ABUSE, UNCOMPLICATED 12/09/2018 Ot F17.210 NI COTINE DEPENDENCE, CIGARETTES, UNCOMPL 12/09/2018 Ot K21.9 JUAN RO-ESOPHAGEAL REFLUX DISEASE WITHOUT 12/09/2018 Ot R07.89 OTH ER CHEST PAIN 12/09/2018 Ot R07.9 CHES T PAIN, UNSPECIFIED 12/09/2018 Ot Z79.82 CHIOMA G TERM (CURRENT) USE OF ASPIRIN 12/09/2018 Ot Z88.5 JESSICA RGY STATUS TO NARCOTIC AGENT STATUS 12/20/2018 CARL ROJO MD Ot B19.20 UNSPECIFIED VIRAL HEPATITIS C WITHOUT HE 12/20/2018 CARL ROJO MD Ot F31 .9 BIPOLAR DISORDER, UNSPECIFIED 12/20/2018 CARL ROJO MD Ot F41 .9 ANXIETY DISORDER, UNSPECIFIED 12/20/2018 CARL ROJO MD Ot F43.10 POST-TRAUMATIC STRESS DISORDER, UNSPECIF 12/20/2018 CARL ROJO MD Ot G40.909 EPILEPSY, UNSP, NOT INTRACTABLE, WITHOUT 12/20/2018 CARL ROJO MD Ot J44 .9 CHRONIC OBSTRUCTIVE PULMONARY DISEASE, U 12/20/2018 CARL ROJO MD Ot R11.10 VOMITING, UNSPECIFIED 12/20/2018 CARL ROJO MD Ot R11 .2 NAUSEA WITH VOMITING, UNSPECIFIED 12/20/2018 CARL ROJO MD Ot Z79 .4 CORRECTION (CURRENT) USE OF INSULIN 12/20/2018 CARL ROJO MD Ot Z88 .6 ALLERGY STATUS TO ANALGESIC AGENT STATUS 12/20/2018 CARL ROJO MD Ot Z88 .8 ALLERGY STATUS TO OTH DRUG/MEDS/BIOL SUB 12/20/2018 CARL ROJO MD Ot Z98.51 TUBAL LIGATION STATUS 02/08/2019 MALLORIE LAWS MD Ot E11.9 TYPE 2 DIABETES MELLITUS WITHOUT COMPLIC 02/08/2019 MALLORIE LAWS MD Ot E78.00 PURE HYPERCHOLESTEROLEMIA, UNSPECIFIED 02/08/2019 MALLORIE LAWS MD Ot F12.10 CANNABIS ABUSE, UNCOMPLICATED 02/08/2019 MALLORIE LAWS MD Ot F15.10 OTHER STIMULANT ABUSE, UNCOMPLICATED 02/08/2019 MALLORIE LAWS MD Ot F17.210 NICOTINE DEPENDENCE, CIGARETTES, UNCOMPL 02/08/2019 MALLORIE LAWS MD Ot F31.9 BIPOLAR DISORDER, UNSPECIFIED 02/08/2019 MALLORIE LAWS MD Ot F41.9 ANXIETY DISORDER, UNSPECIFIED 02/08/2019 MALLORIE LAWS MD Ot F43.10 POST-TRAUMATIC STRESS DISORDER, UNSPECIF 02/08/2019 MALLORIE LAWS MD Ot G40.909 EPILEPSY, UNSP, NOT INTRACTABLE, WITHOUT 02/08/2019 MALLORIE LAWS MD Ot I21.9 ACUTE MYOCARDIAL INFARCTION, UNSPECIFIED 02/08/2019 MALLORIE LAWS MD Ot J44.9 CHRONIC OBSTRUCTIVE PULMONARY DISEASE, U 02/08/2019 MALLORIE LAWS MD Ot R07.89 OTHER CHEST PAIN 02/08/2019 MALLORIE LAWS MD Ot Z21 ASYMPTOMATIC HUMAN IMMUNODEFICIENCY VIRU 02/08/2019 MALLORIE LAWS MD Ot Z79.4 [place] ROOM (CURRENT) USE OF INSULIN 02/08/2019 MALLORIE LAWS MD Ot Z82.49 FAMILY HX OF ISCHEM HEART DIS AND OTH DI 02/08/2019 MALLORIE LAWS MD Ot Z88.5 ALLERGY STATUS TO NARCOTIC AGENT STATUS 02/08/2019 MALLORIE LAWS MD Ot Z88.6 ALLERGY STATUS TO ANALGESIC AGENT STATUS 02/08/2019 MALLORIE LAWS MD Ot Z98.51 TUBAL LIGATION STATUS 02/17/2019 RONNI JAIME STRATTON Ot B19. 20 UNSPECIFIED VIRAL HEPATITIS C WITHOUT HE 02/17/2019 JAIME RUDOLPH MD, Ot E11. 9 TYPE 2 DIABETES MELLITUS WITHOUT COMPLIC 02/17/2019 JAIME RUDOLPH MD, Ot F32. 9 MAJOR DEPRESSIVE DISORDER, SINGLE EPISOD 02/17/2019 JAIME RUDOLPH MD, Ot F41. 9 ANXIETY DISORDER, UNSPECIFIED 02/17/2019 JAIME RUDOLPH MD, Ot G40.909 EPILEPSY, UNSP, NOT INTRACTABLE, WITHOUT 02/17/2019 JAIME RUDOLPH MD, Ot G89. 29 OTHER CHRONIC PAIN 02/17/2019 JAIME RUDOLPH MD, Ot I25. 2 OLD MYOCARDIAL INFARCTION 02/17/2019 JAIME RUDOLPH MD, Ot J44. 9 CHRONIC OBSTRUCTIVE PULMONARY DISEASE, U 02/17/2019 JAIME RUDOLPH MD, Ot M54. 2 CERVICALGIA 02/17/2019 JAIME RUDOLPH MD, Ot Z21 ASYMPTOMATIC HUMAN IMMUNODEFICIENCY VIRU 02/17/2019 JAIME RUDOLPH MD, Ot Z79. 02 CORRECTION (CURRENT) USE OF ANTITHROMBOTI 02/17/2019 JAIME RUDOLPH MD, Ot Z79. 4 CORRECTION (CURRENT) USE OF INSULIN 02/17/2019 JAIME RUDOLPH MD, Ot Z79. 52 CORRECTION (CURRENT) USE OF SYSTEMIC STER 02/17/2019 JAIME RUDOLPH MD, Ot Z79. 82 CORRECTION (CURRENT) USE OF ASPIRIN 02/17/2019 JAIME RUDOLPH MD, Ot Z82. 49 FAMILY HX OF ISCHEM HEART DIS AND OTH DI 02/17/2019 JAIME RUDOLPH MD, Ot Z87. 39 PERSONAL HISTORY OF DISEASES OF THE MS S 02/17/2019 JAIME RUDOLPH MD, Ot Z88. 5 ALLERGY STATUS TO NARCOTIC AGENT STATUS 02/17/2019 JAIME RUDOLPH MD, Ot Z88. 8 ALLERGY STATUS TO OT DRUG/MEDS/BIOL SUB 02/17/2019 JAIME RUDOLPH MD, Ot Z90.710 ACQUIRED ABSENCE OF BOTH CERVIX AND UTER 02/17/2019 JAIME RUDOLPH MD, Ot Z95. 5 PRESENCE OF CORONARY ANGIOPLASTY IMPLANT 02/17/2019 JAIME RUDOLPH MD, Ot Z98. 51 TUBAL LIGATION STATUS 02/19/2019 JAIME RUDOLPH MD, Ot B19. 20 UNSPECIFIED VIRAL HEPATITIS C WITHOUT HE 02/19/2019 JAIME RUDOLPH MD, Ot E11. 9 TYPE 2 DIABETES MELLITUS WITHOUT COMPLIC 02/19/2019 JAIME RUDOLPH MD, Ot F32. 9 MAJOR DEPRESSIVE DISORDER, SINGLE EPISOD 02/19/2019 JAIME RUDOLPH MD, Ot F41. 9 ANXIETY DISORDER, UNSPECIFIED 02/19/2019 JAIME RUDOLPH MD, Ot G40.909 EPILEPSY, UNSP, NOT INTRACTABLE, WITHOUT 02/19/2019 JAIME RUDOLPH MD, Ot G89. 29 OTHER CHRONIC PAIN 02/19/2019 JAIME RUDOLPH MD, Ot I25. 2 OLD MYOCARDIAL INFARCTION 02/19/2019 JAIME RUDOLPH MD, Ot J44. 9 CHRONIC OBSTRUCTIVE PULMONARY DISEASE, U 02/19/2019 JAIME RUDOLPH MD, Ot M54. 2 CERVICALGIA 02/19/2019 JAIME RUDOLPH MD, Ot Z21 ASYMPTOMATIC HUMAN IMMUNODEFICIENCY VIRU 02/19/2019 JAIME RUDOLPH MD, Ot Z79. 02 CORRECTION (CURRENT) USE OF ANTITHROMBOTI 02/19/2019 JAIME RUDOLPH MD, Ot Z79. 4 CORRECTION (CURRENT) USE OF INSULIN 02/19/2019 JAIME RUDOLPH MD, Ot Z79. 52 CORRECTION (CURRENT) USE OF SYSTEMIC STER 02/19/2019 JAIME RUDOLPH MD, Ot Z79. 82 CORRECTION (CURRENT) USE OF ASPIRIN 02/19/2019 JAIME RUDOLPH MD, Ot Z82. 49 FAMILY HX OF ISCHEM HEART DIS AND OTH DI 02/19/2019 JAIME RUDOLPH MD, Ot Z87. 39 PERSONAL HISTORY OF DISEASES OF THE MS S 02/19/2019 JAIME RUDOLPH MD, Ot Z88. 5 ALLERGY STATUS TO NARCOTIC AGENT STATUS 02/19/2019 JAIME RUDOLPH MD, Ot Z88. 8 ALLERGY STATUS TO OT DRUG/MEDS/BIOL SUB 02/19/2019 JAIME RUDOLPH MD, Ot Z90.710 ACQUIRED ABSENCE OF BOTH CERVIX AND UTER 02/19/2019 JAIME RUDOLPH MD, Ot Z95. 5 PRESENCE OF CORONARY ANGIOPLASTY IMPLANT 02/19/2019 JAIME RUDOLPH MD, Ot Z98. 51 TUBAL LIGATION STATUS 03/08/2019 MALLORIE LAWS MD Ot E11.9 TYPE 2 DIABETES MELLITUS WITHOUT COMPLIC 03/08/2019 MALLORIE LAWS MD Ot F17.210 NICOTINE DEPENDENCE, CIGARETTES, UNCOMPL 03/08/2019 MALLORIE LAWS MD Ot F32.9 MAJOR DEPRESSIVE DISORDER, SINGLE EPISOD 03/08/2019 MALLORIE LAWS MD, Ot F41.9 ANXIETY DISORDER, UNSPECIFIED 03/08/2019 MALLORIE LAWS MD Ot G40.909 EPILEPSY, UNSP, NOT INTRACTABLE, WITHOUT 03/08/2019 MALLORIE LAWS MD Ot I25.2 OLD MYOCARDIAL INFARCTION 03/08/2019 MALLORIE LAWS MD, Ot J44.9 CHRONIC OBSTRUCTIVE PULMONARY DISEASE, U 03/08/2019 MALLORIE LAWS MD, Ot N61.1 ABSCESS OF THE BREAST AND NIPPLE 03/08/2019 MALLORIE LAWS MD Ot R07.89 OTHER CHEST PAIN 03/08/2019 MALLORIE LAWS MD Ot R07.9 CHEST PAIN, UNSPECIFIED 03/08/2019 MALLORIE LAWS MD Ot Z79.4 CORRECTION (CURRENT) USE OF INSULIN 03/08/2019 MALLORIE LAWS MD Ot Z79.82 CORRECTION (CURRENT) USE OF ASPIRIN 03/08/2019 MALLORIE LAWS MD Ot Z82.49 FAMILY HX OF ISCHEM HEART DIS AND OTH DI 03/08/2019 MALLORIE LAWS MD Ot Z88.5 ALLERGY STATUS TO NARCOTIC AGENT STATUS 03/08/2019 MALLORIE LAWS MD Ot Z88.8 ALLERGY STATUS TO OTH DRUG/MEDS/BIOL SUB 03/08/2019 MALLORIE LAWS MD Ot Z90.710 ACQUIRED ABSENCE OF BOTH CERVIX AND UTER 03/08/2019 MALLORIE LAWS MD Ot Z95.5 PRESENCE OF CORONARY ANGIOPLASTY IMPLANT 03/08/2019 MALLORIE LAWS MD Ot Z98.51 TUBAL LIGATION STATUS 03/11/2019 MALLORIE LAWS MD Ot E11.9 TYPE 2 DIABETES MELLITUS WITHOUT COMPLIC 03/11/2019 MALLORIE LAWS MD Ot F17.210 NICOTINE DEPENDENCE, CIGARETTES, UNCOMPL 03/11/2019 MALLORIE LAWS MD Ot F32.9 MAJOR DEPRESSIVE DISORDER, SINGLE EPISOD 03/11/2019 MALLORIE LAWS MD, Ot F41.9 ANXIETY DISORDER, UNSPECIFIED 03/11/2019 MALLORIE LAWS MD, Ot G40.909 EPILEPSY, UNSP, NOT INTRACTABLE, WITHOUT 03/11/2019 MALLORIE LAWS MD, Ot I25.2 OLD MYOCARDIAL INFARCTION 03/11/2019 MALLORIE LAWS MD, Ot J44.9 CHRONIC OBSTRUCTIVE PULMONARY DISEASE, U 03/11/2019 MALLORIE LAWS MD, Ot N61.1 ABSCESS OF THE BREAST AND NIPPLE 03/11/2019 MALLORIE LAWS MD Ot R07.89 OTHER CHEST PAIN 03/11/2019 MALLORIE LAWS MD, Ot R07.9 CHEST PAIN, UNSPECIFIED 03/11/2019 MALLORIE LAWS MD, Ot Z79.4 CORRECTION (CURRENT) USE OF INSULIN 03/11/2019 MALLORIE LAWS MD, Ot Z79.82 CORRECTION (CURRENT) USE OF ASPIRIN 03/11/2019 MALLORIE LAWS MD, Ot Z82.49 FAMILY HX OF ISCHEM HEART DIS AND OTH DI 03/11/2019 MALLORIE LAWS MD, Ot Z88.5 ALLERGY STATUS TO NARCOTIC AGENT STATUS 03/11/2019 MALLORIE LAWS MD, Ot Z88.8 ALLERGY STATUS TO OTH DRUG/MEDS/BIOL SUB 03/11/2019 MALLORIE LAWS MD, Ot Z90.710 ACQUIRED ABSENCE OF BOTH CERVIX AND UTER 03/11/2019 MALLORIE LAWS MD Ot Z95.5 PRESENCE OF CORONARY ANGIOPLASTY IMPLANT 03/11/2019 MALLORIE LAWS MD Ot Z98.51 TUBAL LIGATION STATUS Procedures Code Description Performed By Per formed On [id number] DI LATION OF 1 COR ART WITH DRUG-ELUT INT 05/05/2018 [id number] ME ASURE OF CARDIAC SAMPL PRESSURE, L H 05/05/2018 [id number] FL UOROSCOPY OF MULT COR ART USING L OSM 05/05/2018 [id number] FL UOROSCOPY OF LEFT HEART USING LOW OSMO 05/05/2018 [id number] FL UOROSCOPY OF AORTA, BI LE ART USING L 05/05/2018 Results Test Result Range Capillary blood glucose measurement by g lucometer (mass/volume) - 08/14/16 11:56 Capillary blood glucose measurement by glucometer (mas s/volume) 145 mg/dL 70-110 Complete blood count (CBC) with automate d white blood cell (WBC) differential - 10/18/17 12:55 Blood leukocytes automated count (number/volume) 7.5 10*3/uL 4.3-11.0 Blood erythrocytes automated count (number/volume) 5.07 10*6/uL 4.35-5.85 Venous blood hemoglobin measurement (mass/volume) 15.0 g/dL 11.5-16.0 Blood hematocrit (volume fraction) 43 % 35-52 Automated erythrocyte mean corpuscular volume 84 [ foz_us] 80-99 Automated erythrocyte mean corpuscular h emoglobin (mass per erythrocyte) 30 pg 25-34 Automated erythrocyte mean corpuscular h emoglobin concentration measurement (mass/volume) 35 g/dL 32-36 Automated erythrocyte distribution width ratio 13. 0 % 10.0- 14.5 Automated blood platelet count [...] 10*3 1.0-4.0 Blood monocytes automated count (number/volume) 0. 6 10*3 0.0-1.0 Automated eosinophil count 0.1 10*3/uL 0 .0-0.3 Automated blood basophil count (count/volume) 0.0 10*3/uL 0.0-0.1 Comprehensive metabolic panel - 10/18/17 12:55 Serum or plasma sodium measurement (moles/volume) 137 mmol/L 135-145 Serum or plasma potassium measurement (moles/volume) 4.5 mmol/L 3.6-5.0 Serum or plasma chloride measurement (moles/volume) 103 mmol/L 98-107 Carbon dioxide 25 mmol/L 21-32 Serum or plasma anion gap determination (moles/volume) 9 mmol/L 5-14 Serum or plasma urea nitrogen measurement (mass/volume ) 11 mg/dL 7-18 Serum or plasma creatinine measurement (mass/volume) 0.68 mg/dL 0.60-1.30 Serum or plasma urea nitrogen/creatinine mass ratio 16 NRG Serum or plasma creatinine measurement w ith calculation of estimated glomerular filtration rate > NRG Serum or plasma glucose measurement (mass/volume) 212 mg/dL 70-105 Serum or plasma calcium measurement (mass/volume) 9.7 mg/dL 8.5-10.1 Serum or plasma total bilirubin measurement (mass/volu me) 0.6 mg/dL 0.1-1.0 Serum or plasma alkaline phosphatase nguyễn surement (enzymatic activity/volume) 79 U/L 40-136 Serum or plasma aspartate aminotransfera se measurement (enzymatic activity/volume) 11 U/L 5-34 Serum or plasma alanine aminotransferase measurement (enzymatic activity/volume) 16 U/L 0-55 Serum or plasma protein measurement (mass/volume) 7.8 g/dL 6.4-8.2 Serum or plasma albumin measurement (mass/volume) 4.2 g/dL 3.2-4.5 Complete urinalysis with reflex to cultu re - 10/18/17 13:10 Urine color determination YELLOW NRG Urine clarity determination CLEAR NR G Urine pH measurement by test strip 6.5 5-9 Specific gravity of urine by test strip 1.015 1.016-1.022 Urine protein assay by test strip, semi-quantitative 1+ NEGATIVE Urine glucose detection by automated test strip 3+ NEGATIVE Erythrocytes detection in urine sediment by light micr oscopy NEGATIVE NEGATIVE Urine ketones detection by automated test strip NE GATIVE NEGATIVE Urine nitrite detection by test strip NEGATIVE NEGATIVE Urine total bilirubin detection by test strip NEGA TIVE NEGATIVE Urine urobilinogen measurement by automated test strip (mass/volume) NORMAL NORMAL Urine leukocyte esterase detection by dipstick 1+ NEGATIVE Automated urine sediment erythrocyte cou nt by microscopy (number/high power field) RARE NRG Automated urine sediment leukocyte count by microscopy (number/high power field) RARE NRG Bacteria detection in urine sediment by light microsco py NEGATIVE NRG Squamous epithelial cells detection in u rine sediment by light microscopy 5-10 NRG Crystals detection in urine sediment by light microsco py NONE NRG Casts detection in urine sediment by light microscopy NONE NRG Mucus detection in urine sediment by light microscopy SMALL NRG Complete urinalysis with reflex to culture NO NRG Complete urinalysis with reflex to cultu re - 11/17/17 20:48 Urine color determination YELLOW NRG Urine clarity determination CLEAR NR G Urine pH measurement by test strip 7 5-9 Specific gravity of urine by test strip 1.010 1.016-1.022 Urine protein assay by test strip, semi-quantitative NEGATIVE NEGATIVE Urine glucose detection by automated test strip 4+ NEGATIVE Erythrocytes detection in urine sediment by light micr oscopy NEGATIVE NEGATIVE Urine ketones detection by automated test strip NE GATIVE NEGATIVE Urine nitrite detection by test strip NEGATIVE NEGATIVE Urine total bilirubin detection by test strip NEGA TIVE NEGATIVE Urine urobilinogen measurement by automated test strip (mass/volume) NORMAL NORMAL Urine leukocyte esterase detection by dipstick NEG ATIVE NEGATIVE Automated urine sediment erythrocyte cou nt by microscopy (number/high power field) RARE NRG Automated urine sediment leukocyte count by microscopy (number/high power field) RARE NRG Bacteria detection in urine sediment by light microsco py NEGATIVE NRG Squamous epithelial cells detection in u rine sediment by light microscopy 0-2 NRG Crystals detection in urine sediment by light microsco py NONE NRG Casts detection in urine sediment by light microscopy NONE NRG Mucus detection in urine sediment by light microscopy NEGATIVE NRG Complete urinalysis with reflex to culture NO NRG Renal epithelial cells detection in urin e sediment by light microscopy NONE NRG Streptococcus pyogenes antigen detection - 11/17/17 20:48 Streptococcus pyogenes antigen detection NEGATIVE NEGATIVE Urine drug screening test - 11/17/17 20: 48 Urine phencyclidine detection by screening method NEGATIVE NEGATIVE Urine benzodiazepines detection by screening method NEGATIVE NEGATIVE Urine cocaine detection NEGATIVE NEGATI VE Urine amphetamines detection by screening method N EGATIVE NEGATIVE Urine methamphetamine detection by screening method NEGATIVE NEGATIVE Urine cannabinoids detection by screening method N EGATIVE NEGATIVE Urine opiates detection by screening method NEGATI VE NEGATIVE Urine barbiturates detection NEGATIVE N EGATIVE Screening urine tricyclic antidepressants detection NEGATIVE NEGATIVE Urine methadone detection by screening method NEGA TIVE NEGATIVE Urine oxycodone detection NEGATIVE NEGA TIVE Urine propoxyphene detection NEGATIVE N EGATIVE Bacterial throat culture - 11/17/17 20:4 8 Bacterial throat culture NBS NRG Complete blood count (CBC) with automate d white blood cell (WBC) differential - 11/17/17 20:50 Blood leukocytes automated count (number/volume) 12.0 10*3/uL 4.3-11.0 Blood erythrocytes automated count (number/volume) 4.68 10*6/uL 4.35-5.85 Venous blood hemoglobin measurement (mass/volume) 14.0 g/dL 11.5-16.0 Blood hematocrit (volume fraction) 39 % 35-52 Automated erythrocyte mean corpuscular volume 84 [ foz_us] 80-99 Automated erythrocyte mean corpuscular h emoglobin (mass per erythrocyte) 30 pg 25-34 Automated erythrocyte mean corpuscular h emoglobin concentration measurement (mass/volume) 36 g/dL 32-36 Automated erythrocyte distribution width ratio 13. 3 % 10.0- 14.5 Automated blood platelet count [...] 10*3 1.0-4.0 Blood monocytes automated count (number/volume) 0. 7 10*3 0.0-1.0 Automated eosinophil count 0.0 10*3/uL 0 .0-0.3 Automated blood basophil count (count/volume) 0.0 10*3/uL 0.0-0.1 Serum heterophile antibody titer - 11/17 20:50 Serum heterophile antibody titer NEGATIVE NEGATIVE Serum or plasma choriogonadotropin (preg mecca test) detection - 11/17/17 20:50 Serum or plasma choriogonadotropin ( test) de tection NEGATIVE NEGATIVE Comprehensive metabolic panel - 11/17/17 20:50 Serum or plasma sodium measurement (moles/volume) 133 mmol/L 135-145 Serum or plasma potassium measurement (moles/volume) 4.5 mmol/L 3.6-5.0 Serum or plasma chloride measurement (moles/volume) 98 mmol/L 98-107 Carbon dioxide 21 mmol/L 21-32 Serum or plasma anion gap determination (moles/volume) 14 mmol/L 5-14 Serum or plasma urea nitrogen measurement (mass/volume ) 9 mg/dL 7-18 Serum or plasma creatinine measurement (mass/volume) 0.76 mg/dL 0.60-1.30 Serum or plasma urea nitrogen/creatinine mass ratio 12 NRG Serum or plasma creatinine measurement w ith calculation of estimated glomerular filtration rate > NRG Serum or plasma glucose measurement (mass/volume) 473 mg/dL 70-105 Serum or plasma calcium measurement (mass/volume) 10.0 mg/dL 8.5-10.1 Serum or plasma total bilirubin measurement (mass/volu me) 0.4 mg/dL 0.1-1.0 Serum or plasma alkaline phosphatase nguyễn surement (enzymatic activity/volume) 79 U/L 40-136 Serum or plasma aspartate aminotransfera se measurement (enzymatic activity/volume) 11 U/L 5-34 Serum or plasma alanine aminotransferase measurement (enzymatic activity/volume) 14 U/L 0-55 Serum or plasma protein measurement (mass/volume) 7.5 g/dL 6.4-8.2 Serum or plasma albumin measurement (mass/volume) 4.3 g/dL 3.2-4.5 Serum or plasma C reactive protein measu rement (mass/volume) - 11/17/17 20:50 Serum or plasma C reactive protein measurement (mass/v olume) 0.41 mg/dL 0.00-0.50 Blood lactic acid measurement (moles/vol ume) - 11/17/17 21:17 Blood lactic acid measurement (moles/volume) 2.12 mmol/L 0.50-2.00 Complete blood count (CBC) with automate d white blood cell (WBC) differential - 12/18/17 16:34 Blood leukocytes automated count (number/volume) 11.4 10*3/uL 4.3-11.0 Blood erythrocytes automated count (number/volume) 4.90 10*6/uL 4.35-5.85 Venous blood hemoglobin measurement (mass/volume) 14.2 g/dL 11.5-16.0 Blood hematocrit (volume fraction) 41 % 35-52 Automated erythrocyte mean corpuscular volume 85 [ foz_us] 80-99 Automated erythrocyte mean corpuscular h emoglobin (mass per erythrocyte) 29 pg 25-34 Automated erythrocyte mean corpuscular h emoglobin concentration measurement (mass/volume) 34 g/dL 32-36 Automated erythrocyte distribution width ratio 13. 5 % 10.0- 14.5 Automated blood platelet count [...] 10*3 1.0-4.0 Blood monocytes automated count (number/volume) 1. 0 10*3 0.0-1.0 Automated eosinophil count 0.0 10*3/uL 0 .0-0.3 Automated blood basophil count (count/volume) 0.0 10*3/uL 0.0-0.1 PT panel in platelet poor plasma by coag ulation assay - 12/18/17 16:34 Prothrombin time (PT) in platelet poor plasma by coagu lation assay 13.5 s 12.2-14.7 INR in platelet poor plasma or blood by coagulation as say 1.0 0.8-1.4 Activated partial thromboplastin time (a PTT) in platelet poor plasma bycoagulation assay - 12/18/17 16:34 Activated partial thromboplastin time (a PTT) in platelet poor plasma bycoagulation assay 24 s 24-35 Comprehensive metabolic panel - 12/18/17 16:34 Serum or plasma sodium measurement (moles/volume) 137 mmol/L 135-145 Serum or plasma potassium measurement (moles/volume) 4.0 mmol/L 3.6-5.0 Serum or plasma chloride measurement (moles/volume) 98 mmol/L 98-107 Carbon dioxide 26 mmol/L 21-32 Serum or plasma anion gap determination (moles/volume) 13 mmol/L 5-14 Serum or plasma urea nitrogen measurement (mass/volume ) 13 mg/dL 7-18 Serum or plasma creatinine measurement (mass/volume) 0.72 mg/dL 0.60-1.30 Serum or plasma urea nitrogen/creatinine mass ratio 18 NRG Serum or plasma creatinine measurement w ith calculation of estimated glomerular filtration rate > NRG Serum or plasma glucose measurement (mass/volume) 313 mg/dL 70-105 Serum or plasma calcium measurement (mass/volume) 9.8 mg/dL 8.5-10.1 Serum or plasma total bilirubin measurement (mass/volu me) 0.7 mg/dL 0.1-1.0 Serum or plasma alkaline phosphatase nguyễn surement (enzymatic activity/volume) 81 U/L 40-136 Serum or plasma aspartate aminotransfera se measurement (enzymatic activity/volume) 73 U/L 5-34 Serum or plasma alanine aminotransferase measurement (enzymatic activity/volume) 25 U/L 0-55 Serum or plasma protein measurement (mass/volume) 7.4 g/dL 6.4-8.2 Serum or plasma albumin measurement (mass/volume) 4.3 g/dL 3.2-4.5 Magnesium - 12/18/17 16:34 Magnesium 1.9 mg/dL 1.8-2.4 Serum or plasma troponin i.cardiac measu rement (mass/volume) - 12/18/17 16:34 Serum or plasma troponin i.cardiac measurement (mass/v olume) 15.68 ng/mL <0.30 Myoglobin, serum - 12/18/17 16:34 Myoglobin, serum 347.7 ng/mL 10.0-92.0 Streptococcus pyogenes antigen detection - 04/09/18 13:57 Streptococcus pyogenes antigen detection NEGATIVE NEGATIVE Influenza virus A and B antigen detectio n - 04/09/18 13:57 FLU RESULT NEGATIVE FOR INFLUENZA A AND B ANTIGENS BY IA NRG Bacterial throat culture - 04/09/18 13:5 7 Bacterial throat culture NBS [facility] Complete blood count (CBC) with automate d white blood cell (WBC) differential - 05/05/18 09:20 Blood leukocytes automated count (number/volume) 8.8 10*3/uL 4.3-11.0 Blood erythrocytes automated count (number/volume) 4.70 10*6/uL 4.35-5.85 Venous blood hemoglobin measurement (mass/volume) 14.1 g/dL 11.5-16.0 Blood hematocrit (volume fraction) 40 % 35-52 Automated erythrocyte mean corpuscular volume 85 [ foz_us] 80-99 Automated erythrocyte mean corpuscular h emoglobin (mass per erythrocyte) 30 pg 25-34 Automated erythrocyte mean corpuscular h emoglobin concentration measurement (mass/volume) 35 g/dL 32-36 Automated erythrocyte distribution width ratio 13. 9 % 10.0- 14.5 Automated blood platelet count [...] 10*3 1.0-4.0 Blood monocytes automated count (number/volume) 0. 7 10*3 0.0-1.0 Automated eosinophil count 0.1 10*3/uL 0 .0-0.3 Automated blood basophil count (count/volume) 0.0 10*3/uL 0.0-0.1 Comprehensive metabolic panel - 05/05/18 09:20 Serum or plasma sodium measurement (moles/volume) 131 mmol/L 135-145 Serum or plasma potassium measurement (moles/volume) 5.1 mmol/L 3.6-5.0 Serum or plasma chloride measurement (moles/volume) 95 mmol/L 98-107 Carbon dioxide 24 mmol/L 21-32 Serum or plasma anion gap determination (moles/volume) 12 mmol/L 5-14 Serum or plasma urea nitrogen measurement (mass/volume ) 12 mg/dL 7-18 Serum or plasma creatinine measurement (mass/volume) 0.79 mg/dL 0.60-1.30 Serum or plasma urea nitrogen/creatinine mass ratio 15 NRG Serum or plasma creatinine measurement w ith calculation of estimated glomerular filtration rate > NRG Serum or plasma glucose measurement (mass/volume) 409 mg/dL 70-105 Serum or plasma calcium measurement (mass/volume) 9.4 mg/dL 8.5-10.1 Serum or plasma total bilirubin measurement (mass/volu me) 0.5 mg/dL 0.1-1.0 Serum or plasma alkaline phosphatase nguyễn surement (enzymatic activity/volume) 74 U/L 40-136 Serum or plasma aspartate aminotransfera se measurement (enzymatic activity/volume) 15 U/L 5-34 Serum or plasma alanine aminotransferase measurement (enzymatic activity/volume) 27 U/L 0-55 Serum or plasma protein measurement (mass/volume) 7.4 g/dL 6.4-8.2 Serum or plasma albumin measurement (mass/volume) 4.2 g/dL 3.2-4.5 CALCIUM CORRECTED 9.2 mg/dL 8.5-10.1 Serum or plasma troponin i.cardiac measu rement (mass/volume) - 05/05/18 09:20 Serum or plasma troponin i.cardiac measurement (mass/v olume) < ng/mL <0.30 Capillary blood glucose measurement by g lucometer (mass/volume) - 05/05/18 11:56 Capillary blood glucose measurement by glucometer (mas s/volume) 310 mg/dL 70-110 Capillary blood glucose measurement by g lucometer (mass/volume) - 05/05/18 19:06 Capillary blood glucose measurement by glucometer (mas s/volume) 253 mg/dL 70-110 Capillary blood glucose measurement by g lucometer (mass/volume) - 05/05/18 20:56 Capillary blood glucose measurement by glucometer (mas s/volume) 270 mg/dL 70-110 Automated blood complete blood count (he mogram) panel - 05/06/18 03:30 Blood leukocytes automated count (number/volume) 9.2 10*3/uL 4.3-11.0 Blood erythrocytes automated count (number/volume) 4.50 10*6/uL 4.35-5.85 Venous blood hemoglobin measurement (mass/volume) 13.3 g/dL 11.5-16.0 Blood hematocrit (volume fraction) 39 % 35-52 Automated erythrocyte mean corpuscular volume 87 [ foz_us] 80-99 Automated erythrocyte mean corpuscular h emoglobin (mass per erythrocyte) 30 pg 25-34 Automated erythrocyte mean corpuscular h emoglobin concentration measurement (mass/volume) 34 g/dL 32-36 Automated erythrocyte distribution width ratio 14. 2 % 10.0- 14.5 Automated blood platelet count (count/volume) 219 10*3/uL 130-400 Automated blood platelet mean volume measurement 10.7 [foz_us] 7.4-10.4 Serum or plasma phosphate measurement (m ass/volume) - 05/06/18 03:30 Serum or plasma phosphate measurement (mass/volume) 3.0 mg/dL 2.3-4.7 Magnesium - 05/06/18 03:30 Magnesium 1.9 mg/dL 1.8-2.4 Whole blood basic metabolic panel - 04/20 12/05 03:30 Serum or plasma sodium measurement (moles/volume) 134 mmol/L 135-145 Serum or plasma potassium measurement (moles/volume) 4.4 mmol/L 3.6-5.0 Serum or plasma chloride measurement (moles/volume) 104 mmol/L 98-107 Carbon dioxide 19 mmol/L 21-32 Serum or plasma anion gap determination (moles/volume) 11 mmol/L 5-14 Serum or plasma urea nitrogen measurement (mass/volume ) 11 mg/dL 7-18 Serum or plasma creatinine measurement (mass/volume) 0.67 mg/dL 0.60-1.30 Serum or plasma urea nitrogen/creatinine mass ratio 16 NRG Serum or plasma creatinine measurement w ith calculation of estimated glomerular filtration rate > NRG Serum or plasma glucose measurement (mass/volume) 253 mg/dL 70-105 Serum or plasma calcium measurement (mass/volume) 8.7 mg/dL 8.5-10.1 Serum or plasma troponin i.cardiac measu rement (mass/volume) - 05/06/18 08:59 Serum or plasma troponin i.cardiac measurement (mass/v olume) < ng/mL <0.30 Capillary blood glucose measurement by g lucometer (mass/volume) - 05/06/18 09:21 Capillary blood glucose measurement by glucometer (mas s/volume) 294 mg/dL 70-110 Complete blood count (CBC) with automate d white blood cell (WBC) differential - 06/27/18 12:11 Blood leukocytes automated count (number/volume) 7.8 10*3/uL 4.3-11.0 Blood erythrocytes automated count (number/volume) 4.61 10*6/uL 4.35-5.85 Venous blood hemoglobin measurement (mass/volume) 13.8 g/dL 11.5-16.0 Blood hematocrit (volume fraction) 41 % 35-52 Automated erythrocyte mean corpuscular volume 88 [ foz_us] 80-99 Automated erythrocyte mean corpuscular h emoglobin (mass per erythrocyte) 30 pg 25-34 Automated erythrocyte mean corpuscular h emoglobin concentration measurement (mass/volume) 34 g/dL 32-36 Automated erythrocyte distribution width ratio 13. 7 % 10.0- 14.5 Automated blood platelet count [...] 10*3 1.0-4.0 Blood monocytes automated count (number/volume) 0. 6 10*3 0.0-1.0 Automated eosinophil count 0.1 10*3/uL 0 .0-0.3 Automated blood basophil count (count/volume) 0.0 10*3/uL 0.0-0.1 PT panel in platelet poor plasma by coag ulation assay - 06/27/18 12:11 Prothrombin time (PT) in platelet poor plasma by coagu lation assay 12.2 s 12.2-14.7 INR in platelet poor plasma or blood by coagulation as say 0.9 0.8-1.4 Activated partial thromboplastin time (a PTT) in platelet poor plasma bycoagulation assay - 06/27/18 12:11 Activated partial thromboplastin time (a PTT) in platelet poor plasma bycoagulation assay 23 s 24-35 Fibrin D-dimer FEU measurement in platel et poor plasma (mass/volume) - 06/27/18 12:11 Fibrin [...] 5-14 Serum or plasma urea nitrogen measurement (mass/volume ) 6 mg/dL 7-18 Serum or plasma creatinine measurement (mass/volume) 0.70 mg/dL 0.60-1.30 Serum or plasma urea nitrogen/creatinine mass ratio 9 NRG Serum or plasma creatinine measurement w ith calculation of estimated glomerular filtration rate > NRG Serum or plasma glucose measurement (mass/volume) 366 mg/dL 70-105 Serum or plasma calcium measurement (mass/volume) 9.2 mg/dL 8.5-10.1 Serum or plasma total bilirubin measurement (mass/volu me) 0.4 mg/dL 0.1-1.0 Serum or plasma alkaline phosphatase nguyễn surement (enzymatic activity/volume) 73 U/L 40-136 Serum or plasma aspartate aminotransfera se measurement (enzymatic activity/volume) 19 U/L 5-34 Serum or plasma alanine aminotransferase measurement (enzymatic activity/volume) 19 U/L 0-55 Serum or plasma protein measurement (mass/volume) 7.1 g/dL 6.4-8.2 Serum or plasma albumin measurement (mass/volume) 4.1 g/dL 3.2-4.5 CALCIUM CORRECTED 9.1 mg/dL 8.5-10.1 Magnesium - 06/27/18 12:11 Magnesium 2.0 mg/dL 1.8-2.4 Serum or plasma troponin i.cardiac measu rement (mass/volume) - 06/27/18 12:11 Serum or plasma troponin i.cardiac measurement (mass/v olume) < ng/mL <0.028 Myoglobin, serum - 06/27/18 12:11 Myoglobin, serum 17.2 ng/mL 10.0-92.0 Serum or plasma lithium measurement (mol es/volume) - 06/27/18 12:11 BNP level 33.0 pg/mL <100.0 Capillary blood glucose measurement by g lucometer (mass/volume) - 06/27/18 16:55 Capillary blood glucose measurement by glucometer (mas s/volume) 218 mg/dL 70-110 Serum or plasma troponin i.cardiac measu rement (mass/volume) - 06/27/18 18:05 Serum or plasma troponin i.cardiac measurement (mass/v olume) < ng/mL <0.028 Capillary blood glucose measurement by g lucometer (mass/volume) - 06/27/18 20:19 Capillary blood glucose measurement by glucometer (mas s/volume) 238 mg/dL 70-110 Lipid 1996 panel - 06/28/18 03:10 Serum or plasma triglyceride measurement (mass/volume) 277 mg/dL <150 Serum or plasma cholesterol measurement (mass/volume) 206 mg/dL < 200 Serum or plasma cholesterol in HDL measurement (mass/v olume) 49 mg/dL 40-60 Cholesterol in LDL [mass/volume] in serum or plasma by direct assay 127 mg/dL 1-129 Serum or plasma cholesterol in VLDL measurement (mass/ volume) 55 mg/dL 5-40 Capillary blood glucose measurement by g lucometer (mass/volume) - 06/28/18 05:19 Capillary blood glucose measurement by glucometer (mas s/volume) 303 mg/dL 70-110 Complete blood count (CBC) with automate d white blood cell (WBC) differential - 07/19/18 08:30 Blood leukocytes automated count (number/volume) 9.2 10*3/uL 4.3-11.0 Blood erythrocytes automated count (number/volume) 5.34 10*6/uL 4.35-5.85 Venous blood hemoglobin measurement (mass/volume) 15.6 g/dL 11.5-16.0 Blood hematocrit (volume fraction) 47 % 35-52 Automated erythrocyte mean corpuscular volume 89 [ foz_us] 80-99 Automated erythrocyte mean corpuscular h emoglobin (mass per erythrocyte) 29 pg 25-34 Automated erythrocyte mean corpuscular h emoglobin concentration measurement (mass/volume) 33 g/dL 32-36 Automated erythrocyte distribution width ratio 12. 5 % 10.0- 14.5 Automated blood platelet count (count/volume) 263 10*3/uL 130-400 Automated blood platelet mean volume measurement 11.3 [foz_us] 7.4-10.4 Automated blood neutrophils/100 leukocytes 57 % 42-75 Automated blood lymphocytes/100 leukocytes 35 % 12-44 Blood monocytes/100 leukocytes 6 % 0-12 Automated blood eosinophils/100 leukocytes 2 % 0-10 Automated blood basophils/100 leukocytes 0 % 0-10 Blood neutrophils automated count (number/volume) 5.2 10*3 1.8-7.8 Blood lymphocytes automated count (number/volume) 3.2 10*3 1.0-4.0 Blood monocytes automated count (number/volume) 0. 6 10*3 0.0-1.0 Automated eosinophil count 0.2 10*3/uL 0 .0-0.3 Automated blood basophil count (count/volume) 0.0 10*3/uL 0.0-0.1 Comprehensive metabolic panel - 07/19/18 08:30 Serum or plasma sodium measurement (moles/volume) 132 mmol/L 135-145 Serum or plasma potassium measurement (moles/volume) 4.8 mmol/L 3.6-5.0 Serum or plasma chloride measurement (moles/volume) 95 mmol/L 98-107 Carbon dioxide 15 mmol/L 21-32 Serum or plasma anion gap determination (moles/volume) 22 mmol/L 5-14 Serum or plasma urea nitrogen measurement (mass/volume ) 12 mg/dL 7-18 Serum or plasma creatinine measurement (mass/volume) 0.41 mg/dL 0.60-1.30 Serum or plasma urea nitrogen/creatinine mass ratio 29 NRG Serum or plasma creatinine measurement w ith calculation of estimated glomerular filtration rate > NRG Serum or plasma glucose measurement (mass/volume) 478 mg/dL 70-105 Serum or plasma calcium measurement (mass/volume) 9.5 mg/dL 8.5-10.1 Serum or plasma total bilirubin measurement (mass/volu me) 0.4 mg/dL 0.1-1.0 Serum or plasma alkaline phosphatase nguyễn surement (enzymatic activity/volume) 97 U/L 40-136 Serum or plasma aspartate aminotransfera se measurement (enzymatic activity/volume) 13 U/L 5-34 Serum or plasma alanine aminotransferase measurement (enzymatic activity/volume) 16 U/L 0-55 Serum or plasma protein measurement (mass/volume) 8.2 g/dL 6.4-8.2 Serum or plasma albumin measurement (mass/volume) 4.5 g/dL 3.2-4.5 CALCIUM CORRECTED 9.1 mg/dL 8.5-10.1 Fibrin D-dimer FEU measurement in platel et poor plasma (mass/volume) - 07/19/18 08:30 Fibrin D-dimer FEU measurement in platelet poor plasma (mass/volume) 0.40 ug/mL 0.00-0.49 Lipase - 07/19/18 08:30 Lipase 28 U/L 8-78 TROPONIN T - 07/19/18 08:30 TROPONIN T 12 % <=10 TROPONIN T - 07/19/18 11:05 TROPONIN T 8 % <=10 Serum or plasma creatine kinase measurem ent (enzymatic activity/volume) - 07/19/18 11:05 Serum or plasma creatine kinase measurem ent (enzymatic activity/volume) 25 U/L 29-168 Capillary blood glucose measurement by g lucometer (mass/volume) - 07/19/18 11:11 Capillary blood glucose measurement by glucometer (mas s/volume) 342 mg/dL 70-110 Complete blood count (CBC) with automate d white blood cell (WBC) differential - 09/02/18 19:10 Blood leukocytes automated count (number/volume) 8.3 10*3/uL 4.3-11.0 Blood erythrocytes automated count (number/volume) 4.40 10*6/uL 4.35-5.85 Venous blood hemoglobin measurement (mass/volume) 13.2 g/dL 11.5-16.0 Blood hematocrit (volume fraction) 40 % 35-52 Automated erythrocyte mean corpuscular volume 91 [ foz_us] 80-99 Automated erythrocyte mean corpuscular h emoglobin (mass per erythrocyte) 30 pg 25-34 Automated erythrocyte mean corpuscular h emoglobin concentration measurement (mass/volume) 33 g/dL 32-36 Automated erythrocyte distribution width ratio 13. 1 % 10.0- 14.5 Automated blood platelet count [...] 10*3 1.0-4.0 Blood monocytes automated count (number/volume) 0. 7 10*3 0.0-1.0 Automated eosinophil count 0.2 10*3/uL 0 .0-0.3 Automated blood basophil count (count/volume) 0.0 10*3/uL 0.0-0.1 PT panel in platelet poor plasma by coag ulation assay - 09/02/18 19:10 Prothrombin time (PT) in platelet poor plasma by coagu lation assay 12.5 s 12.2-14.7 INR in platelet poor plasma or blood by coagulation as say 0.9 0.8-1.4 Activated partial thromboplastin time (a PTT) in platelet poor plasma bycoagulation assay - 09/02/18 19:10 Activated partial thromboplastin time (a PTT) in platelet poor plasma bycoagulation assay 25 [...] 5-14 Serum or plasma urea nitrogen measurement (mass/volume ) 12 mg/dL 7-18 Serum or plasma creatinine measurement (mass/volume) 0.51 mg/dL 0.60-1.30 Serum or plasma urea nitrogen/creatinine mass ratio 24 NRG Serum or plasma creatinine measurement w ith calculation of estimated glomerular filtration rate > NRG Serum or plasma glucose measurement (mass/volume) 198 mg/dL 70-105 Serum or plasma calcium measurement (mass/volume) 9.2 mg/dL 8.5-10.1 Serum or plasma total bilirubin measurement (mass/volu me) 0.3 mg/dL 0.1-1.0 Serum or plasma alkaline phosphatase nguyễn surement (enzymatic activity/volume) 63 U/L 40-136 Serum or plasma aspartate aminotransfera se measurement (enzymatic activity/volume) 17 U/L 5-34 Serum [...] 8-78 Urine drug screening test - 09/02/18 19: 30 Urine phencyclidine detection by screening method NEGATIVE NEGATIVE Urine benzodiazepines detection by screening method NEGATIVE NEGATIVE Urine cocaine detection NEGATIVE NEGATI VE Urine amphetamines detection by screening method N EGATIVE NEGATIVE Urine methamphetamine detection by screening method NEGATIVE NEGATIVE Urine cannabinoids detection by screening method P OSITIVE NEGATIVE Urine opiates detection by screening method POSITI VE NEGATIVE Urine barbiturates detection NEGATIVE N EGATIVE Screening urine tricyclic antidepressants detection NEGATIVE NEGATIVE Urine methadone detection by screening method NEGA TIVE NEGATIVE Urine oxycodone detection NEGATIVE NEGA TIVE Urine propoxyphene detection NEGATIVE N EGATIVE Complete urinalysis with reflex to cultu re - 09/02/18 19:30 Urine color determination YELLOW NRG Urine clarity determination CLEAR NR G Urine pH measurement by test strip 7.0 5-9 Specific gravity of urine by test strip 1.015 1.016-1.022 Urine protein assay by test strip, semi-quantitative NEGATIVE NEGATIVE Urine glucose detection by automated test strip TR HARINDER NEGATIVE Erythrocytes detection in urine sediment by light micr oscopy NEGATIVE NEGATIVE Urine ketones detection by automated test strip NE GATIVE NEGATIVE Urine nitrite detection by test strip NEGATIVE NEGATIVE Urine total bilirubin detection by test strip NEGA TIVE NEGATIVE Urine urobilinogen measurement by automated test strip (mass/volume) 0.2 mg/dL NORMAL Urine leukocyte esterase detection by dipstick NEG ATIVE NEGATIVE Automated urine sediment erythrocyte cou nt by microscopy (number/high power field) NONE NRG Automated urine sediment leukocyte count by microscopy (number/high power field) NONE NRG Bacteria detection in urine sediment by light microsco py NONE NRG Squamous epithelial cells detection in u rine sediment by light microscopy >50 NRG Crystals detection in urine sediment by light microsco py NONE NRG Casts detection in urine sediment by light microscopy NONE NRG Mucus detection in urine sediment by light microscopy NEGATIVE NRG Complete urinalysis with reflex to culture NO NRG TROPONIN T - 09/02/18 21:07 TROPONIN T 8 % <=10 Complete urinalysis with reflex to cultu re - 09/16/18 10:55 Urine color determination YELLOW NRG Urine clarity determination CLEAR NR G Urine pH measurement by test strip 7.0 5-9 Specific gravity of urine by test strip < 1.016-1.022 Urine protein assay by test strip, semi-quantitative NEGATIVE NEGATIVE Urine glucose detection by automated test strip NE GATIVE NEGATIVE Erythrocytes detection in urine sediment by light micr oscopy NEGATIVE NEGATIVE Urine ketones detection by automated test strip NE GATIVE NEGATIVE Urine nitrite detection by test strip NEGATIVE NEGATIVE Urine total bilirubin detection by test strip NEGA TIVE NEGATIVE Urine urobilinogen measurement by automated test strip (mass/volume) 0.2 mg/dL NORMAL Urine leukocyte esterase detection by dipstick NEG ATIVE NEGATIVE Automated urine sediment erythrocyte cou nt by microscopy (number/high power field) NONE NRG Automated urine sediment leukocyte count by microscopy (number/high power field) NONE NRG Bacteria detection in urine sediment by light microsco py NONE NRG Squamous epithelial cells detection in u rine sediment by light microscopy 2-5 NRG Crystals detection in urine sediment by light microsco py NONE NRG Casts detection in urine sediment by light microscopy NONE NRG Mucus detection in urine sediment by light microscopy NEGATIVE NRG Complete urinalysis with reflex to culture NO NRG Urine drug screening test - 09/16/18 10: 55 Urine phencyclidine detection by screening method NEGATIVE NEGATIVE Urine benzodiazepines detection by screening method NEGATIVE NEGATIVE Urine cocaine detection NEGATIVE NEGATI VE Urine amphetamines detection by screening method N EGATIVE NEGATIVE Urine methamphetamine detection by screening method NEGATIVE NEGATIVE Urine cannabinoids detection by screening method P OSITIVE NEGATIVE Urine opiates detection by screening method POSITI VE NEGATIVE Urine barbiturates detection NEGATIVE N EGATIVE Screening urine tricyclic antidepressants detection NEGATIVE NEGATIVE Urine methadone detection by screening method NEGA TIVE NEGATIVE Urine oxycodone detection NEGATIVE NEGA TIVE Urine propoxyphene detection NEGATIVE N EGATIVE Complete blood count (CBC) with automate d white blood cell (WBC) differential - 09/16/18 11:00 Blood leukocytes automated count (number/volume) 13.3 10*3/uL 4.3-11.0 Blood erythrocytes automated count (number/volume) 4.76 10*6/uL 4.35-5.85 Venous blood hemoglobin measurement (mass/volume) 14.1 g/dL 11.5-16.0 Blood hematocrit (volume fraction) 43 % 35-52 Automated erythrocyte mean corpuscular volume 90 [ foz_us] 80-99 Automated erythrocyte mean corpuscular h emoglobin (mass per erythrocyte) 30 pg 25-34 Automated erythrocyte mean corpuscular h emoglobin concentration measurement (mass/volume) 33 g/dL 32-36 Automated erythrocyte distribution width ratio 12. 8 % 10.0- 14.5 Automated blood platelet count [...] 10*3 1.0-4.0 Blood monocytes automated count (number/volume) 0. 9 10*3 0.0-1.0 Automated eosinophil count 0.3 10*3/uL 0 .0-0.3 Automated blood basophil count (count/volume) 0.1 10*3/uL 0.0-0.1 Comprehensive metabolic panel - 09/16/18 11:00 Serum or plasma sodium measurement (moles/volume) 140 mmol/L 135-145 Serum or plasma potassium measurement (moles/volume) 4.1 mmol/L 3.6-5.0 Serum or plasma chloride measurement (moles/volume) 96 mmol/L 98-107 Carbon dioxide 23 mmol/L 21-32 Serum or plasma anion gap determination (moles/volume) 21 mmol/L 5-14 Serum or plasma urea nitrogen measurement (mass/volume ) 6 mg/dL 7-18 Serum or plasma creatinine measurement (mass/volume) 0.58 mg/dL 0.60-1.30 Serum or plasma urea nitrogen/creatinine mass ratio 10 NRG Serum or plasma creatinine measurement w ith calculation of estimated glomerular filtration rate > NRG Serum or plasma glucose measurement (mass/volume) 93 mg/dL 70-105 Serum or plasma calcium measurement (mass/volume) 9.6 mg/dL 8.5-10.1 Serum or plasma total bilirubin measurement (mass/volu me) 0.7 mg/dL 0.1-1.0 Serum or plasma alkaline phosphatase nguyễn surement (enzymatic activity/volume) 81 U/L 40-136 Serum or plasma aspartate aminotransfera se measurement (enzymatic activity/volume) 11 U/L 5-34 Serum or plasma alanine aminotransferase measurement (enzymatic activity/volume) 7 U/L 0-55 Serum or plasma protein measurement (mass/volume) 8.1 g/dL 6.4-8.2 Serum or plasma albumin measurement (mass/volume) 4.3 g/dL 3.2-4.5 CALCIUM CORRECTED 9.4 mg/dL 8.5-10.1 Lipase - 09/16/18 11:00 Lipase 282 U/L 8-78 Automated blood complete blood count (he mogram) panel - 09/17/18 09:45 Blood leukocytes automated count (number/volume) 10.9 10*3/uL 4.3-11.0 Blood erythrocytes automated count (number/volume) 4.38 10*6/uL 4.35-5.85 Venous blood hemoglobin measurement (mass/volume) 12.7 g/dL 11.5-16.0 Blood hematocrit (volume fraction) 39 % 35-52 Automated erythrocyte mean corpuscular volume 89 [ foz_us] 80-99 Automated erythrocyte mean corpuscular h emoglobin (mass per erythrocyte) 29 pg 25-34 Automated erythrocyte mean corpuscular h emoglobin concentration measurement (mass/volume) 33 g/dL 32-36 Automated erythrocyte distribution width ratio 13. 2 % 10.0- 14.5 Automated blood platelet count [...] 5-14 Serum or plasma urea nitrogen measurement (mass/volume ) 9 mg/dL 7-18 Serum or plasma creatinine measurement (mass/volume) 0.63 mg/dL 0.60-1.30 Serum or plasma urea nitrogen/creatinine mass ratio 14 NRG Serum or plasma creatinine measurement w ith calculation of estimated glomerular filtration rate > NRG Serum or plasma glucose measurement (mass/volume) 109 mg/dL 70-105 Serum or plasma calcium measurement (mass/volume) 9.3 mg/dL 8.5-10.1 Serum or plasma total bilirubin measurement (mass/volu me) 1.2 mg/dL 0.1-1.0 Serum or plasma alkaline phosphatase nguyễn surement (enzymatic activity/volume) 73 U/L 40-136 Serum or plasma aspartate aminotransfera se measurement (enzymatic activity/volume) 11 U/L 5-34 Serum or plasma alanine aminotransferase measurement (enzymatic activity/volume) 11 U/L 0-55 Serum or plasma protein measurement (mass/volume) 7.1 g/dL 6.4-8.2 Serum or plasma albumin measurement (mass/volume) 3.9 g/dL 3.2-4.5 CALCIUM CORRECTED 9.4 mg/dL 8.5-10.1 Lipase - 09/17/18 09:45 Lipase 75 U/L 8-78 Capillary blood glucose measurement by g lucometer (mass/volume) - 09/17/18 11:22 Capillary blood glucose measurement by glucometer (mas s/volume) 115 mg/dL 70-110 Complete blood count (CBC) with automate d white blood cell (WBC) differential - 12/01/18 20:42 Blood leukocytes automated count (number/volume) 8.8 10*3/uL 4.3-11.0 Blood erythrocytes automated count (number/volume) 4.52 10*6/uL 4.35-5.85 Venous blood hemoglobin measurement (mass/volume) 13.0 g/dL 11.5-16.0 Blood hematocrit (volume fraction) 39 % 35-52 Automated erythrocyte mean corpuscular volume 87 [ foz_us] 80-99 Automated erythrocyte mean corpuscular h emoglobin (mass per erythrocyte) 29 pg 25-34 Automated erythrocyte mean corpuscular h emoglobin concentration measurement (mass/volume) 33 g/dL 32-36 Automated erythrocyte distribution width ratio 12. 8 % 10.0- 14.5 Automated blood platelet count (count/volume) 257 10*3/uL 130-400 Automated blood platelet mean volume measurement 11.8 [foz_us] 7.4-10.4 Automated blood neutrophils/100 leukocytes 46 % 42-75 Automated blood lymphocytes/100 leukocytes 42 % 12-44 Blood monocytes/100 leukocytes 9 % 0-12 Automated blood eosinophils/100 leukocytes 2 % 0-10 Automated blood basophils/100 leukocytes 0 % 0-10 Blood neutrophils automated count (number/volume) 4.1 10*3 1.8-7.8 Blood lymphocytes automated count (number/volume) 3.7 10*3 1.0-4.0 Blood monocytes automated count (number/volume) 0. 8 10*3 0.0-1.0 Automated eosinophil count 0.2 10*3/uL 0 .0-0.3 Automated blood basophil count (count/volume) 0.0 10*3/uL 0.0-0.1 PT panel in platelet poor plasma by coag ulation assay - 12/01/18 20:42 Prothrombin time (PT) in platelet poor plasma by coagu lation assay 12.3 s 12.2-14.7 INR in platelet poor plasma or blood by coagulation as say 0.9 0.8-1.4 Activated partial thromboplastin time (a PTT) in platelet poor plasma bycoagulation assay - 12/01/18 20:42 Activated partial thromboplastin time (a PTT) in platelet poor plasma bycoagulation assay 24 s 24-35 Fibrin D-dimer FEU measurement in platel et poor plasma (mass/volume) - 12/01/18 20:42 Fibrin D-dimer FEU measurement in platelet poor plasma (mass/volume) 0.52 ug/mL 0.00-0.49 Serum or plasma choriogonadotropin (preg [place]cca test) detection - 12/01/18 20:42 Serum or plasma choriogonadotropin ( test) de tection NEGATIVE NEGATIVE Comprehensive metabolic panel - 12/01/18 20:42 Serum or plasma sodium measurement (moles/volume) 134 mmol/L 135-145 Serum or plasma potassium measurement (moles/volume) 3.8 mmol/L 3.6-5.0 Serum or plasma chloride measurement (moles/volume) 90 mmol/L 98-107 Carbon dioxide 29 mmol/L 21-32 Serum or plasma anion gap determination (moles/volume) 15 mmol/L 5-14 Serum or plasma urea nitrogen measurement (mass/volume ) 7 mg/dL 7-18 Serum or plasma creatinine measurement (mass/volume) 0.50 mg/dL 0.60-1.30 Serum or plasma urea nitrogen/creatinine mass ratio 14 NRG Serum or plasma creatinine measurement w ith calculation of estimated glomerular filtration rate > NRG Serum or plasma glucose measurement (mass/volume) 386 mg/dL 70-105 Serum or plasma calcium measurement (mass/volume) 9.4 mg/dL 8.5-10.1 Serum or plasma total bilirubin measurement (mass/volu me) 0.3 mg/dL 0.1-1.0 Serum or plasma alkaline phosphatase nguyễn surement (enzymatic activity/volume) 86 U/L 40-136 Serum or plasma aspartate aminotransfera se measurement (enzymatic activity/volume) 15 U/L 5-34 Serum or plasma alanine aminotransferase measurement (enzymatic activity/volume) 27 U/L 0-55 Serum or plasma protein measurement (mass/volume) 7.0 g/dL 6.4-8.2 Serum or plasma albumin measurement (mass/volume) 3.9 g/dL 3.2-4.5 CALCIUM CORRECTED 9.5 mg/dL 8.5-10.1 Magnesium - 12/01/18 20:42 Magnesium 1.8 mg/dL 1.8-2.4 Myoglobin, serum - 12/01/18 20:42 Myoglobin, serum 21.0 ng/mL 10.0-92.0 Serum or plasma troponin i.cardiac measu rement (mass/volume) - 12/01/18 20:42 Serum or plasma troponin i.cardiac measurement (mass/v olume) 0.30 ng/mL <0.30 PROBNP FS - 12/01/18 20:42 PROBNP FS 62.0 pg/mL <75.0 Lipid 1996 panel - 12/01/18 20:42 Serum or plasma triglyceride measurement (mass/volume) 298 mg/dL <150 Serum or plasma cholesterol measurement (mass/volume) 183 mg/dL < 200 Serum or plasma cholesterol in HDL measurement (mass/v olume) 46 mg/dL 40-60 Cholesterol in LDL [mass/volume] in serum or plasma by direct assay 107 mg/dL 1-129 Serum or plasma cholesterol in VLDL measurement (mass/ volume) 60 mg/dL 5-40 Complete urinalysis with reflex to cultu re - 12/01/18 21:35 Urine color determination YELLOW NRG Urine clarity determination CLEAR NR G Urine pH measurement by test strip 7.0 5-9 Specific gravity of urine by test strip <= 1.016-1.022 Urine protein assay by test strip, semi-quantitative NEGATIVE NEGATIVE Urine glucose detection by automated test strip 3+ NEGATIVE Erythrocytes detection in urine sediment by light micr oscopy NEGATIVE NEGATIVE Urine ketones detection by automated test strip NE GATIVE NEGATIVE Urine nitrite detection by test strip NEGATIVE NEGATIVE Urine total bilirubin detection by test strip NEGA TIVE NEGATIVE Urine urobilinogen measurement by automated test strip (mass/volume) 0.2 mg/dL NORMAL Urine leukocyte esterase detection by dipstick NEG ATIVE NEGATIVE Automated urine sediment erythrocyte cou nt by microscopy (number/high power field) RARE NRG Automated urine sediment leukocyte count by microscopy (number/high power field) NONE NRG Bacteria detection in urine sediment by light microsco py NEGATIVE NRG Squamous epithelial cells detection in u rine sediment by light microscopy 2-5 NRG Crystals detection in urine sediment by light microsco py NONE NRG Casts detection in urine sediment by light microscopy NONE NRG Mucus detection in urine sediment by light microscopy NEGATIVE NRG Complete urinalysis with reflex to culture NO NRG Urine drug screening test - 12/01/18 21: 35 Urine phencyclidine detection by screening method NEGATIVE NEGATIVE Urine benzodiazepines detection by screening method NEGATIVE NEGATIVE Urine cocaine detection NEGATIVE NEGATI VE Urine amphetamines detection by screening method N EGATIVE NEGATIVE Urine methamphetamine detection by screening method POSITIVE NEGATIVE Urine cannabinoids detection by screening method P OSITIVE NEGATIVE Urine opiates detection by screening method POSITI VE NEGATIVE Urine barbiturates detection NEGATIVE N EGATIVE Screening urine tricyclic antidepressants detection NEGATIVE NEGATIVE Urine methadone detection by screening method NEGA TIVE NEGATIVE Urine oxycodone detection NEGATIVE NEGA TIVE Urine propoxyphene detection NEGATIVE N EGATIVE Serum or plasma troponin i.cardiac measu rement (mass/volume) - 12/01/18 23:20 Serum or plasma troponin i.cardiac measurement (mass/v olume) < ng/mL <0.30 Bacterial blood culture - 03/08/19 13:30 Bacterial blood culture NG NRG Complete blood count (CBC) with automate d white blood cell (WBC) differential - 03/08/19 13:31 Blood leukocytes automated count (number/volume) 8.9 10*3/uL 4.3-11.0 Blood erythrocytes automated count (number/volume) 4.74 10*6/uL 4.35-5.85 Venous blood hemoglobin measurement (mass/volume) 13.5 g/dL 11.5-16.0 Blood hematocrit (volume fraction) 40 % 35-52 Automated erythrocyte mean corpuscular volume 84 [ foz_us] 80-99 Automated erythrocyte mean corpuscular h emoglobin (mass per erythrocyte) 29 pg 25-34 Automated erythrocyte mean corpuscular h emoglobin concentration measurement (mass/volume) 34 g/dL 32-36 Automated erythrocyte distribution width ratio 13. 1 % 10.0- 14.5 Automated blood platelet count (count/volume) 249 10*3/uL 130-400 Automated blood platelet mean volume measurement 11.0 [foz_us] 7.4-10.4 Automated blood neutrophils/100 leukocytes 50 % 42-75 Automated blood lymphocytes/100 leukocytes 39 % 12-44 Blood monocytes/100 leukocytes 9 % 0-12 Automated blood eosinophils/100 leukocytes 2 % 0-10 Automated blood basophils/100 leukocytes 0 % 0-10 Blood neutrophils automated count (number/volume) 4.5 10*3 1.8-7.8 Blood lymphocytes automated count (number/volume) 3.4 10*3 1.0-4.0 Blood monocytes automated count (number/volume) 0. 8 10*3 0.0-1.0 Automated eosinophil count 0.2 10*3/uL 0 .0-0.3 Automated blood basophil count (count/volume) 0.0 10*3/uL 0.0-0.1 Blood lactic acid measurement (moles/vol ume) - 03/08/19 13:31 Blood lactic acid measurement (moles/volume) 1.30 mmol/L 0.50-2.00 PT panel in platelet poor plasma by coag ulation assay - 03/08/19 13:31 Prothrombin time (PT) in platelet poor plasma by coagu lation assay 13.0 s 12.2-14.7 INR in platelet poor plasma or blood by coagulation as say 1.0 0.8-1.4 Activated partial thromboplastin time (a PTT) in platelet poor plasma bycoagulation assay - 03/08/19 13:31 Activated partial thromboplastin time (a PTT) in platelet poor plasma bycoagulation assay 26 s 24-35 Serum or plasma C reactive protein measu rement (mass/volume) - 03/08/19 13:31 Serum or plasma C reactive protein measurement (mass/v olume) 1.14 mg/dL 0.00-0.50 Comprehensive metabolic panel - 03/08/19 13:31 Serum or plasma sodium measurement (moles/volume) 134 mmol/L 135-145 Serum or plasma potassium measurement (moles/volume) 4.1 mmol/L 3.6-5.0 Serum or plasma chloride measurement (moles/volume) 101 mmol/L 98-107 Carbon dioxide 24 mmol/L 21-32 Serum or plasma anion gap determination (moles/volume) 9 mmol/L 5-14 Serum or plasma urea nitrogen measurement (mass/volume ) 5 mg/dL 7-18 Serum or plasma creatinine measurement (mass/volume) 0.70 mg/dL 0.60-1.30 Serum or plasma urea nitrogen/creatinine mass ratio 7 NRG Serum or plasma creatinine measurement w ith calculation of estimated glomerular filtration rate > NRG Serum or plasma glucose measurement (mass/volume) 332 mg/dL 70-105 Serum or plasma calcium measurement (mass/volume) 8.9 mg/dL 8.5-10.1 Serum or plasma total bilirubin measurement (mass/volu me) 0.4 mg/dL 0.1-1.0 Serum or plasma alkaline phosphatase nguyễn surement (enzymatic activity/volume) 88 U/L 40-136 Serum or plasma aspartate aminotransfera se measurement (enzymatic activity/volume) 12 U/L 5-34 Serum or plasma alanine aminotransferase measurement (enzymatic activity/volume) 18 U/L 0-55 Serum or plasma protein measurement (mass/volume) 6.9 g/dL 6.4-8.2 Serum or plasma albumin measurement (mass/volume) 3.7 g/dL 3.2-4.5 CALCIUM CORRECTED 9.1 mg/dL 8.5-10.1 Magnesium - 03/08/19 13:31 Magnesium 1.8 mg/dL 1.6-2.4 Serum or plasma troponin i.cardiac measu rement (mass/volume) - 03/08/19 13:31 Serum or plasma troponin i.cardiac measurement (mass/v olume) < ng/mL <0.028 Myoglobin, serum - 03/08/19 13:31 Myoglobin, serum 13.8 ng/mL 10.0-92.0 Serum or plasma troponin i.cardiac measu rement (mass/volume) - 03/08/19 16:23 Serum or plasma troponin i.cardiac measurement (mass/v olume) < ng/mL <0.028 Gram stain microscopy - 03/08/19 16:30 Gram stain microscopy NO BACTERIA SEEN NRG Bacteria identification in wound by cult ure - 03/08/19 16:30 Bacteria identification in wound by culture NG NRG Encounters ACCT No. Visit Date/Time Discharge Status Pt. Type Provider Facility Loc./Unit Complaint [id number] 10/04/2016 15:30:00 23:59:59 CLS Preadmit MARE BAILEY APRN [facility] RT J45.909 [id number] 06/26/2013 14:58:00 014 16:27:00 DIS Emergency TALI GOLDSMITH APRN [facility] ER FALL/RIGHT ANKLE PAIN [id number] 12/01/2018 20:34:00 00:57:00 DIS Emergency CHAPARRO KELLEY MD [facility] ER FS CHEST PAIN [id number] 03/08/2019 13:09:00 17:21:00 DIS Emergency VETO STRATTON, MALLORIE Mcleod [facility] ER STEMI [id number] 02/17/2019 16:29:00 17:16:00 DIS Emergency JAIME RUDOLPH MD [facility] ER FS SASHA ARM PAIN [id number] 11/25/2018 16:22:00 17:42:00 DIS Outpatient SABRINA FRANCO DO [facility] ER FS LT FOOT INJ [id number] 09/16/2018 17:10:00 13:12:00 DIS Inpatient JERSEY HAQUE MD [facility] 4TH ABD PAIN; W/V; PANCREAT ITIS [id number] 09/02/2018 18:14:00 22:09:00 DIS Emergency CHAPARRO KELLEY MD [facility] ER FS CHEST PAIN [id number] 08/16/2018 17:26:00 19:10:00 DIS Emergency NATE MULLER DO [facility] ER FS EAR PIERCING PAIN [id number] 08/13/2018 08:53:00 23:59:59 CLS Outpatient MARE BAILEY APRN [facility] RAD ABN FINDING ON LUNG FIELD,ASTHMA,DYSPNEA [id number] 07/12/2018 10:55:00 12:05:00 DIS Emergency MARIYA PETERSEN DO [facility] ER FS BUTTOCK ABSCESS [id number] 06/27/2018 14:33:00 15:00:00 DIS Inpatient JERSEY HAQUE MD [facility] ICU CHEST PAIN/ASHD [id number] 05/05/2018 09:38:00 12:53:00 DIS Inpatient Maksim VASQUEZ MD [facility] ICU STEMI [id number] 04/09/2018 13:46:00 14:38:00 DIS Emergency SKIP HALLMAN [facility] ER COLD SYMPTOMS [id number] 02/21/2018 10:43:00 23:59:59 CLS Outpatient Maksim VASQUEZ MD [facility] CARD CAD,HTN [id number] 12/18/2017 16:17:00 23:59:59 CLS Emergency MALLORIE LAWS MD [facility] ER CHEST PAIN;LEFT ARM NUMB [id number] 11/28/2017 13:23:00 018 23:59:59 CLS Outpatient TORIN STRATTON, VERA Melton (DDU) [facility] RT ASTHMA,COPD [id number] 11/23/2017 20:38:00 018 22:28:00 DIS Emergency YAYA CHAVSI, KEN K Pauline [facility] ER BOIL ON GENITAL [id number] 11/17/2017 20:28:00 018 22:56:00 DIS Emergency ALLIE STRATTON, CHAPARRO Galeas [facility] ER FACE GOING NUMB,NECK AN D SPINAL PAIN [id number] 10/18/2017 12:21:00 018 15:38:00 DIS Outpatient ALIA STRATTON, CARL Parnell [facility] ER VOMITING [id number] 08/14/2016 11:17:00 017 13:57:00 DIS Outpatient KATELYNN DIAZ MD [facility] ENDO NAUSEA/VOMITING; BLOOD IN STOOLS [id number] 08/11/2016 14:20:00 017 14:34:00 DIS Outpatient KATELYNN DIAZ MD [facility] PREOP NAUSEA/VOMITING; BLOOD IN STOOLS [id number] 12/02/2018 15:02:00 Document Registration [id number] 08/21/2018 09:44:00 Document Registration [id number] 07/19/2018 08:26:00 Document Registration [id number] 06/26/2013 14:58:00 Document Registration [id number] 07/19/2018 08:26:00 019 13:30:00 DIS Emergency BRETT BRADEN DO [facility] ER FS CHEST PAIN
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
[2019-09-04 19:05] LABS: HEMATOCRIT 40 % (35-52); HEMOGLOBIN 13.3 G/DL (11.5-16.0); MEAN CORPUSCULAR HEMOGLOBIN 29 PG (25-34); MEAN CORPUSCULAR HGB CONC 34 G/DL (32-36); MEAN CORPUSCULAR VOLUME 86 FL (80-99); WHITE BLOOD COUNT 8.2 10^3/uL (4.3-11.0)
[2019-09-04 19:06] LABS: BASOPHILS # (AUTO) 0.1 10^3/uL (0.0-0.1); BASOPHILS % (AUTO) 1 % (0-10); EOSINOPHILS # (AUTO) 0.2 10^3/uL (0.0-0.3); EOSINOPHILS % (AUTO) 2 % (0-10); LYMPHOCYTES # (AUTO) 3.4 X 10^3 (1.0-4.0); LYMPHOCYTES % (AUTO) 41 % (12-44); MEAN PLATELET VOLUME 11.4 FL (7.4-10.4); MONOCYTES # (AUTO) 0.5 X 10^3 (0.0-1.0); MONOCYTES % (AUTO) 6 % (0-12); NEUTROPHILS # (AUTO) 4.1 X 10^3 (1.8-7.8); NEUTROPHILS % (AUTO) 50 % (42-75); PLATELET COUNT 227 10^3/uL (130-400); RED CELL DISTRIBUTION WIDTH 12.6 % (10.0-14.5)
--- NOTE | 2019-09-04 19:15 | Diagnostic Imaging Report ---
Clinical indication: Patient with chest pain x1 week with worsening onset starting today. Pain radiates down left arm. Exam: Portable chest x-ray upright view. Comparisons: Chest x-ray dated 03/08/2019. CT scan of the chest dated 07/19/2018. Findings: Lungs/pleura: There is no significant change to the subtle 1.6 cm nodule in the right midlung field. Otherwise, lungs are clear. There is no pneumothorax. There is no pleural effusion. Mediastinum: Unremarkable. Pulmonary vasculature: Unremarkable. Heart: Unremarkable. Bones/extrathoracic soft tissue: Unremarkable. Impression: 1: Stable chest x-ray exam with no interval radiographic evidence of acute cardiopulmonary process. 2: Stable right midlung field nodule which should continue to be followed on subsequent imaging. Dictated by: Dictated on workstation # [id number]
[2019-09-04 19:20] LABS: PROTHROMBIN TIME PATIENT 13.5 SEC (12.2-14.7)
[2019-09-04 19:29] LABS: SODIUM 140 MMOL/L (135-145)
[2019-09-04 19:30] LABS: POTASSIUM 3.7 MMOL/L (3.6-5.0)
[2019-09-04 19:31] LABS: CARBON DIOXIDE 26 MMOL/L (21-32); CHLORIDE 101 MMOL/L (98-107)
[2019-09-04 19:32] LABS: BUN/CREATININE RATIO 15; CREATININE SERUM 0.41 MG/DL (0.60-1.30); GFR ESTIMATED > 60
[2019-09-04 19:33] LABS: ALANINE AMINOTRANSFERASE 12 U/L (0-55); ALKALINE PHOSPHATASE 77 U/L (40-136); BILIRUBIN,TOTAL 0.4 MG/DL (0.1-1.0); CALCIUM 9.4 MG/DL (8.5-10.1); GLUCOSE 252 MG/DL (70-105)
[2019-09-04 19:35] LABS: TOTAL PROTEIN 6.7 GM/DL (6.4-8.2)
[2019-09-04 20:13] LABS: BILIRUBIN,URINE NEGATIVE (NEGATIVE); CLARITY,URINE CLEAR; COLOR,URINE YELLOW; GLUCOSE, URINE (UA) NEGATIVE (NEGATIVE); KETONES,URINE NEGATIVE (NEGATIVE); NITRITE,URINE NEGATIVE (NEGATIVE); PROTEIN,URINE NEGATIVE (NEGATIVE)
[2019-09-04 20:14] LABS: BACTERIA,URINE NEGATIVE /HPF; LEUKOCYTE ESTERASE ,URINE NEGATIVE (NEGATIVE)
[2019-09-04 20:19] LABS: AMPHETAMINE SCREEN, URINE POSITIVE (NEGATIVE); BARBITURATE SCREEN URINE NEGATIVE (NEGATIVE); BENZODIAZEPINES SCREEN URINE NEGATIVE (NEGATIVE); CANNABINOID SCREEN, URINE POSITIVE (NEGATIVE); COCAINE SCREEN URINE NEGATIVE (NEGATIVE); METHADONE STAT NEGATIVE (NEGATIVE); METHAMPHETAMINE SCREEN URINE S POSITIVE (NEGATIVE); OPIATE SCREEN URINE NEGATIVE (NEGATIVE); OXYCODONE STAT NEGATIVE (NEGATIVE); PROPOXYPHENE STAT NEGATIVE (NEGATIVE); TRICYCLIC ANTIDEPRESSANTS SCRE NEGATIVE (NEGATIVE)
[2019-09-04 20:44] VITALS: BP 106/76
== END 2019-09-04 20:44 | disposition home or self-care (01) ==
LOC: EDUNIT# 18:40 → ER FS 18:41
DX: F41.9 Anxiety disorder, unspecified (principal); R07.89 Other chest pain; F15.10 Other stimulant abuse, uncomplicated; J44.9 Chronic obstructive pulmonary disease, unspecified; E11.9 Type 2 diabetes mellitus without complications; I25.2 Old myocardial infarction; G40.909 Epilepsy, unspecified, not intractable, without status epilepticus; F32.9 Major depressive disorder, single episode, unspecified; F17.210 Nicotine dependence, cigarettes, uncomplicated; Z91.19 Patient's noncompliance with other medical treatment and regimen; Z88.5 Allergy status to narcotic agent; Z95.5 Presence of coronary angioplasty implant and graft; Z79.82 Long term (current) use of aspirin; Z79.02 Long term (current) use of antithrombotics/antiplatelets; Z79.52 Long term (current) use of systemic steroids; Z79.4 Long term (current) use of insulin; Z82.49 Family history of ischemic heart disease and other diseases of the circulatory system
CPT/HCPCS: 36415; 71045; 80053; 80306; 80320; 81000; 83880; 84484; 85025; 85610; 93005

== ENCOUNTER 2019-10-02 21:28 | Emergency (ER) | payer BC, MEDICAID ==
[~2019-10-02] VITALS: Ht 165.1 cm; Wt 87.6 kg
[~2019-10-02 21:28] MED LIST changes: +METF-865 PO; -METF500T19 PO
--- OUTSIDE RECORDS SUMMARY | 2019-10-02 21:35 | XMS REPORT | Continuity of Care Document ---
Author Organization Unknown Address Unknown Phone Unavailable Allergies Active Description Code Type Severity Reaction Onset Reported/Identified Relationship to Patient Clinical Status Yes hydromorphone [id number] Supa g Allergy Unknown N/A 11/05/2008 Yes air casts air casts Unknown N/A 06/26/2013 Yes air casts air casts Unknown N/A 11/28/2017 Yes hydromorphone [id number] Supa g Allergy Severe swelling 07/19/2018 Yes tramadol [id number] Drug Allergy Severe swelling 07/19/2018 Yes hydromorphone [id number] Supa g Allergy Unknown b/p and oxygen 09/16/2018 Yes tramadol [id number] Drug Allergy Unknown ANAPHYLAXIS 09/16/2018 Yes hydromorphone [id number] Supa g Allergy Unknown N/A 12/01/2018 Yes tramadol [id number] Drug Allergy Unknown N/A 12/01/2018 Medications There [...] 10/18/2017 CARL ROJO MD Ot Z79 .4 RESIDENTIAL (CURRENT) USE OF INSULIN 10/18/2017 CARL ROJO MD Ot Z88 .6 ALLERGY STATUS TO ANALGESIC AGENT STATUS 10/18/2017 CARL ROJO MD Ot Z88 .8 ALLERGY STATUS TO OTH DRUG/MEDS/BIOL SUB 10/18/2017 CARL ROJO MD Ot Z98.51 TUBAL LIGATION STATUS 10/22/2017 CARL ROJO MD Ot B19.20 UNSPECIFIED VIRAL HEPATITIS C WITHOUT HE 10/22/2017 CRAL ROJO MD Ot F31 .9 BIPOLAR DISORDER, [...] 10/22/2017 CARL ROJO MD Ot Z79 .4 GILL TENDER (CURRENT) USE OF INSULIN 10/22/2017 CARL ROJO [...] 11/17/2017 CHAPARRO KELLEY MD Ot Z79. 4 GILL TENDER (CURRENT) USE OF INSULIN 11/17/2017 CHAPARRO KELLEY [...] 11/20/2017 CHAPARRO KELLEY MD Ot Z79. 4 GILL TENDER (CURRENT) USE OF INSULIN 11/20/2017 CHAPARRO [...] MD Ot M54. 2 CERVICALGIA 11/23/2017 CHAPARRO KELLEY MD Ot M54. 9 DORSALGIA, UNSPECIFIED 11/23/2017 CHAPARRO KELLEY MD Ot R51 HEADACHE 11/23/2017 CHAPARRO KELLEY MD Ot Z21 ASYMPTOMATIC HUMAN IMMUNODEFICIENCY VIRU 11/23/2017 CHAPARRO KELLEY MD Ot Z79. 4 RESIDENTIAL (CURRENT) USE OF INSULIN 11/23/2017 CHAPARRO KELLEY [...] VIRU 12/18/2017 MALLORIE LAWS MD, Ot Z79.4 RESIDENTIAL (CURRENT) USE OF INSULIN 12/18/2017 MALLORIE LAWS [...] MD Ot I25.10 ATHSCL HEART DISEASE OF [place] CORONARY 02/25/2018 Maksim VASQUEZ MD Ot I42 [...] IMMUNODEFICIENCY VIRU 04/09/2018 LANI HALLMANIS Ot Z79.4 RESIDENTIAL (CURRENT) USE OF INSULIN 04/09/2018 LANI HALLMANIS [...] IMMUNODEFICIENCY VIRU 04/11/2018 LANI HALLMANIS Ot Z79.4 GILL TENDER (CURRENT) USE OF INSULIN 04/11/2018 LANI HALLMANIS [...] IMMUNODEFICIENCY VIRU 04/15/2018 SKIP HALLMAN Ot Z79.4 GILL TENDER (CURRENT) USE OF INSULIN 04/15/2018 SKIP HALLMAN [...] MD Ot I25.10 ATHSCL HEART DISEASE OF [place] CORONARY 05/06/2018 Maksim VASQUEZ MD Ot I25 [...] VASQUEZ MD Ot Z91.19 PATIENT'S NONCOMPLIANCE W [facility] 06/27/2018 VERA HARKINS MD (DDU) Ot Z02.71 ENCOUNTER FOR DISABILITY DETERMINATION 06/27/2018 Maksim VASQUEZ MD Ot E11 .9 TYPE 2 DIABETES MELLITUS WITHOUT COMPLIC 06/27/2018 Maksim VASQUEZ MD Ot I07 .1 RHEUMATIC TRICUSPID INSUFFICIENCY 06/27/2018 Maksim VASQUEZ MD Ot I10 ESSENTIAL (PRIMARY) HYPERTENSION 06/27/2018 Maksim VASQUEZ MD Ot I25.10 ATHSCL HEART DISEASE OF [place] CORONARY 06/27/2018 Maksim VASQUEZ MD Ot I42 [...] MD, Ot I25.10 ATHSCL HEART DISEASE OF [place] CORONARY 06/28/2018 JERSEY HAQUE MD, Ot I25 .2 OLD MYOCARDIAL INFARCTION 06/28/2018 JERSEY HAQUE MD, Ot R07 .9 CHEST PAIN, UNSPECIFIED 06/28/2018 JERSEY HAQUE MD, Ot R91 .8 OTHER NONSPECIFIC ABNORMAL FINDING OF KANDICE 06/28/2018 JERSEY HAQUE MD, Ot Z79 .4 GILL TENDER (CURRENT) USE OF INSULIN 06/28/2018 JERSEY HAQUE MD, Ot Z79.82 GILL TENDER (CURRENT) USE OF ASPIRIN 06/28/2018 JERSEY HAQUE MD, Ot Z79.899 OTHER GILL TENDER (CURRENT) DRUG THERAPY 06/28/2018 JERSEY HAQUE MD, Ot Z86.19 PERSONAL HISTORY OF OTHER INFECTIOUS AND 06/28/2018 JERSEY HAQUE MD, Ot Z91.19 PATIENT'S NONCOMPLIANCE W [facility] 06/28/2018 JERSEY HAQUE MD, [...] MD, Ot I25.10 ATHSCL HEART DISEASE OF [place] CORONARY 06/28/2018 JERSEY HAQUE MD, Ot I25 .2 OLD MYOCARDIAL INFARCTION 06/28/2018 JERSEY HAQUE MD, Ot R07 .9 CHEST PAIN, UNSPECIFIED 06/28/2018 JERSEY HAQUE MD Ot R91 .8 OTHER NONSPECIFIC ABNORMAL FINDING OF KANDICE 06/28/2018 JERSEY HAQUE MD Ot Z79 .4 RESIDENTIAL (CURRENT) USE OF INSULIN 06/28/2018 JERSEY HAQUE MD Ot Z79.82 RESIDENTIAL (CURRENT) USE OF ASPIRIN 06/28/2018 JERSEY HAQUE MD Ot Z79.899 OTHER RESIDENTIAL (CURRENT) DRUG THERAPY 06/28/2018 JERSEY HAQUE MD Ot Z86.19 PERSONAL HISTORY OF OTHER INFECTIOUS AND 06/28/2018 JERSEY HAQUE MD Ot Z91.19 PATIENT'S NONCOMPLIANCE W [facility] 06/28/2018 JERSEY HAQUE MD Ot Z95 .5 PRESENCE OF CORONARY ANGIOPLASTY IMPLANT 07/12/2018 MARIYA PETERSEN DO Ot E11. 9 TYPE 2 DIABETES MELLITUS WITHOUT COMPLIC 07/12/2018 MARIYA PETERSEN DO Ot E78. 00 PURE HYPERCHOLESTEROLEMIA, UNSPECIFIED 07/12/2018 MARIYA PETERSEN DO Ot F12. 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 10 ATHSCL HEART DISEASE OF [place] CORONARY 07/12/2018 MARIYA PETERSEN DO Ot I25. 2 OLD MYOCARDIAL INFARCTION 07/12/2018 MARIYA PETERSEN DO Ot J44. 9 CHRONIC OBSTRUCTIVE PULMONARY DISEASE, U 07/12/2018 MARIYA PETERSEN DO Ot L02.214 CUTANEOUS ABSCESS OF GROIN 07/12/2018 MARIYA PETERSEN DO Ot L03.314 CELLULITIS OF GROIN 07/12/2018 MARIYA PETERSEN DO Ot Z21 ASYMPTOMATIC HUMAN IMMUNODEFICIENCY VIRU 07/12/2018 MARIYA PETERSEN DO Ot Z79. 02 RESIDENTIAL (CURRENT) USE OF ANTITHROMBOTI 07/12/2018 MARIYA PETERSEN DO Ot Z79. 4 GILL TENDER (CURRENT) USE OF INSULIN 07/12/2018 MARIYA PETERSEN DO Ot Z79. 51 RESIDENTIAL (CURRENT) USE OF INHALED STERO 07/12/2018 MARIYA PETERSEN DO Ot Z79. 82 GILL TENDER (CURRENT) USE OF ASPIRIN 07/12/2018 MARIYA PETERSEN [...] MD Ot I25.10 ATHSCL HEART DISEASE OF [place] CORONARY 07/12/2018 Maksim VASQUEZ MD Ot I42 [...] Ot I25. 10 ATHSCL HEART DISEASE OF [place] CORONARY 07/17/2018 MARIYA PETERSEN DO Ot I25. 2 OLD MYOCARDIAL INFARCTION 07/17/2018 MARIYA PETERSEN DO Ot J44. 9 CHRONIC OBSTRUCTIVE PULMONARY DISEASE, U 07/17/2018 MARIYA PETERSEN DO Ot L02.214 CUTANEOUS ABSCESS OF GROIN 07/17/2018 MARIYA PETERSEN DO Ot L03.314 CELLULITIS OF GROIN 07/17/2018 MARIYA PETERSEN DO Ot Z21 ASYMPTOMATIC HUMAN IMMUNODEFICIENCY VIRU 07/17/2018 MARIYA PETERSEN DO Ot Z79. 02 RESIDENTIAL (CURRENT) USE OF ANTITHROMBOTI 07/17/2018 MARIYA PETERSEN DO Ot Z79. 4 RESIDENTIAL (CURRENT) USE OF INSULIN 07/17/2018 MARIYA PETERSEN DO Ot Z79. 51 GILL TENDER (CURRENT) USE OF INHALED STERO 07/17/2018 MARIYA PETERSEN DO Ot Z79. 82 GILL TENDER (CURRENT) USE OF ASPIRIN 07/17/2018 MARIYA PETERSEN [...] Ot I25.10 ATH SCL HEART DISEASE OF [place] CORONARY 07/19/2018 Ot R07.81 PLE URODYNIA 07/19/2018 [...] DO Ot I25.10 ATHSCL HEART DISEASE OF [place] CORONARY 07/19/2018 BRETT BRADEN DO Ot R07.81 [...] Ot I10 ESSENTIAL (PRIMARY) HYPERTENSION 08/16/2018 NATE MLULER DO T Ot I25. 2 OLD MYOCARDIAL INFARCTION 08/16/2018 NATE MULLER DO Ot J06. 9 ACUTE UPPER RESPIRATORY INFECTION, UNSPE 08/16/2018 NATE MULLER DO Ot J44. 9 CHRONIC OBSTRUCTIVE PULMONARY DISEASE, U 08/16/2018 NATE MULLER DO T Ot Z21 ASYMPTOMATIC HUMAN IMMUNODEFICIENCY VIRU 08/16/2018 NATE MULLER DO Ot Z79. 02 RESIDENTIAL (CURRENT) USE OF ANTITHROMBOTI 08/16/2018 NATE MULLER DO Ot Z79. 4 RESIDENTIAL (CURRENT) USE OF INSULIN 08/16/2018 NATE MULLER DO T Ot Z79. 82 GILL TENDER (CURRENT) USE OF ASPIRIN 08/16/2018 NATE MULLER DO Ot Z82. 49 FAMILY HX OF ISCHE[place] HEART DIS AND OTH DI 08/16/2018 NATE MULLER DO T Ot Z88. 5 ALLERGY STATUS TO NARCOTIC AGENT STATUS 08/16/2018 NATE MLULER DO T Ot Z88. 6 ALLERGY STATUS [...] 08/21/2018 NATE MULLER DO Ot Z79. 02 RESIDENTIAL (CURRENT) USE OF ANTITHROMBOTI 08/21/2018 NATE MULLER DO T Ot Z79. 4 RESIDENTIAL (CURRENT) USE OF INSULIN 08/21/2018 NATE MULLER DO T Ot Z79. 82 RESIDENTIAL (CURRENT) USE OF ASPIRIN 08/21/2018 NATE MULLER [...] SOLITARY PULMONARY NODULE 09/02/2018 LEO, MARE E CHIEF RISK OFFICER Ot Z72.0 TOBACCO USE 09/02/2018 CHAPARRO KELLEY [...] 09/02/2018 CHAPARRO KELLEY MD Ot Z79. 02 RESIDENTIAL (CURRENT) USE OF ANTITHROMBOTI 09/02/2018 CHAPARRO KELLEY MD Ot Z79. 4 RESIDENTIAL (CURRENT) USE OF INSULIN 09/02/2018 CHAPARRO KELLEY MD Ot Z79. 82 RESIDENTIAL (CURRENT) USE OF ASPIRIN 09/02/2018 CHAPARRO KELLEY [...] 09/04/2018 CHAPARRO KELLEY MD Ot Z79. 02 RESIDENTIAL (CURRENT) USE OF ANTITHROMBOTI 09/04/2018 CHAPARRO KELLEY MD Ot Z79. 4 RESIDENTIAL (CURRENT) USE OF INSULIN 09/04/2018 CHAPARRO KELLEY MD Ot Z79. 82 GILL TENDER (CURRENT) USE OF ASPIRIN 09/04/2018 CHPAARRO KELLEY MD Ot Z82. 49 FAMILY HX [...] 09/17/2018 JERSEY HAQUE MD Ot Z79 .4 GILL TENDER (CURRENT) USE OF INSULIN 09/17/2018 JERSEY [...] 09/17/2018 JERSEY HAQUE MD Ot Z79 .4 RESIDENTIAL (CURRENT) USE OF INSULIN 09/17/2018 JERSEY HAQUE [...] 09/17/2018 JERSEY HAQUE MD Ot Z79 .4 GILL TENDER (CURRENT) USE OF INSULIN 09/17/2018 JERSEY [...] 09/17/2018 JERSEY HAQUE MD, Ot Z79 .4 GILL TENDER (CURRENT) USE OF INSULIN 09/17/2018 JERSEY [...] 09/17/2018 JERSEY HAQUE MD, Ot Z79 .4 GILL TENDER (CURRENT) USE OF INSULIN 09/17/2018 JERSEY [...] 09/17/2018 JERSEY HAQUE MD Ot Z79 .4 GILL TENDER (CURRENT) USE OF INSULIN 09/17/2018 JERSEY [...] VIRU 10/30/2018 MALLORIE LAWS MD, Ot Z79.4 RESIDENTIAL (CURRENT) USE OF INSULIN 10/30/2018 MALLORIE LAWS [...] MD, Ot I25.10 ATHSCL HEART DISEASE OF [place] CORONARY 11/05/2018 Maksim VASQUEZ MD, Ot I42 [...] AW 11/30/2018 SABRINA FRANCO DO, Ot Z79.4 GILL TENDER (CURRENT) USE OF INSULIN 11/30/2018 SABRINA FRANCO DO, Ot Z79.52 RESIDENTIAL (CURRENT) USE OF SYSTEMIC STER 11/30/2018 SABRIAN FRANCO DO, Ot Z79.82 GILL TENDER (CURRENT) USE OF ASPIRIN 11/30/2018 SABRINA FRANCO DO, Ot Z82.49 FAMILY HX OF I[place]HE[place] HEART DIS AND OTH DI 11/30/2018 SABRINA FRANCO DO, Ot Z88.5 ALLERGY STATUS TO NARCOTIC AGENT STATUS 11/30/2018 SABRINA FRANCO DO, Ot Z90.710 ACQUIRED ABSENCE OF BOTH CERVIX AND UTER 11/30/2018 SALVADOR DO, SABRINA D Ot Z95.5 PRESENCE OF CORONARY ANGIOPLASTY IMPLANT 11/30/2018 SABRNIA FRANCO DO Shani Ot Z98.51 TUBAL LIGATION [...] 12/20/2018 CARL ROJO MD Ot Z79 .4 RESIDENTIAL (CURRENT) USE OF INSULIN 12/20/2018 CARL ROJO [...] Ot F43.10 POST-TRAUMATIC STRESS DISORDER, UNSPECIF 02/08/2019 MALOLRIE LAWS MD Ot G40.909 EPILEPSY, UNSP, NOT INTRACTABLE, WITHOUT 02/08/2019 MALLORIE LAWS MD Ot I21.9 ACUTE MYOCARDIAL INFARCTION, UNSPECIFIED 02/08/2019 MALLORIE LAWS MD Ot J44.9 CHRONIC OBSTRUCTIVE PULMONARY DISEASE, U 02/08/2019 MALLORIE LAWS MD Ot R07.89 OTHER CHEST PAIN 02/08/2019 MALLORIE LAWS MD Ot Z21 ASYMPTOMATIC HUMAN IMMUNODEFICIENCY VIRU 02/08/2019 MALLORIE LAWS MD Ot Z79.4 GILL TENDER (CURRENT) USE OF INSULIN 02/08/2019 MALLORIE LAWS [...] 02/17/2019 JAIME RUDOLPH MD, Ot Z79. 02 RESIDENTIAL (CURRENT) USE OF ANTITHROMBOTI 02/17/2019 JAIME RUDOLPH MD, Ot Z79. 4 RESIDENTIAL (CURRENT) USE OF INSULIN 02/17/2019 JAIME RUDOLPH MD, Ot Z79. 52 RESIDENTIAL (CURRENT) USE OF SYSTEMIC STER 02/17/2019 JAIME RUDOLPH MD, Ot Z79. 82 RESIDENTIAL (CURRENT) USE OF ASPIRIN 02/17/2019 JAIME RUDOLPH [...] 02/19/2019 JAIME RUDOLPH MD, Ot Z79. 02 RESIDENTIAL (CURRENT) USE OF ANTITHROMBOTI 02/19/2019 JAIME RUDOLPH MD, Ot Z79. 4 RESIDENTIAL (CURRENT) USE OF INSULIN 02/19/2019 JAIME RUDOLPH MD, Ot Z79. 52 RESIDENTIAL (CURRENT) USE OF SYSTEMIC STER 02/19/2019 JAIME RUDOLPH MD, Ot Z79. 82 RESIDENTIAL (CURRENT) USE OF ASPIRIN 02/19/2019 JAIME RUDOLPH [...] UNSPECIFIED 03/08/2019 MALLORIE LAWS MD Ot Z79.4 RESIDENTIAL (CURRENT) USE OF INSULIN 03/08/2019 MALLORIE LAWS MD Ot Z79.82 RESIDENTIAL (CURRENT) USE OF ASPIRIN 03/08/2019 MALLORIE LAWS [...] THE BREAST AND NIPPLE 03/11/2019 MALLORIE LAWS MD, Ot R07.89 OTHER CHEST PAIN 03/11/2019 MALLORIE LAWS MD, Ot R07.9 CHEST PAIN, UNSPECIFIED 03/11/2019 MALLORIE LAWS MD, Ot Z79.4 RESIDENTIAL (CURRENT) USE OF INSULIN 03/11/2019 MALLORIE LAWS MD, Ot Z79.82 RESIDENTIAL (CURRENT) USE OF ASPIRIN 03/11/2019 MALLORIE LAWS [...] LAWS MD Ot Z98.51 TUBAL LIGATION STATUS 09/04/2019 JUSTA CARDENAS MD Ot E11.9 TYPE 2 DIABETES MELLITUS WITHOUT COMPLIC 09/04/2019 JUSTA CARDENAS MD Ot F15.10 OTHER STIMULANT ABUSE, UNCOMPLICATED 09/04/2019 JUSTA CARDENAS MD Ot F17.210 NICOTINE DEPENDENCE, CIGARETTES, UNCOMPL 09/04/2019 JUSTA CARDENAS MD Ot F32.9 MAJOR DEPRESSIVE DISORDER, SINGLE EPISOD 09/04/2019 JUSTA CARDENAS MD, Ot F41.9 ANXIETY DISORDER, UNSPECIFIED 09/04/2019 JUSTA CARDENAS MD, Ot G40.909 EPILEPSY, UNSP, NOT INTRACTABLE, WITHOUT 09/04/2019 JUSTA CARDENAS MD, Ot I25.2 OLD MYOCARDIAL INFARCTION 09/04/2019 JUSTA CARDENAS MD, Ot J44.9 CHRONIC OBSTRUCTIVE PULMONARY DISEASE, U 09/04/2019 JUSTA CARDENAS MD, Ot R07.89 OTHER CHEST PAIN 09/04/2019 JUSTA CARDENAS MD, Ot R07.9 CHEST PAIN, UNSPECIFIED 09/04/2019 JUSTA CARDENAS MD, Ot Z79.02 RESIDENTIAL (CURRENT) USE OF ANTITHROMBOTI 09/04/2019 JUSTA CARDENAS MD, Ot Z79.4 GILL TENDER (CURRENT) USE OF INSULIN 09/04/2019 JUSTA CARDENAS MD, Ot Z79.52 GILL TENDER (CURRENT) USE OF SYSTEMIC STER 09/04/2019 JUSTA CARDENAS MD, Ot Z79.82 RESIDENTIAL (CURRENT) USE OF ASPIRIN 09/04/2019 JUSTA CARDENAS MD, Ot Z82.49 FAMILY HX OF ISCHEM HEART DIS AND OTH DI 09/04/2019 JUSTA CARDENAS MD, Ot Z88.5 ALLERGY STATUS TO NARCOTIC AGENT STATUS 09/04/2019 JUSTA CARDENAS MD, Ot Z91.19 PATIENT'S NONCOMPLIANCE W [facility] 09/04/2019 JUSTA CARDENAS MD, Ot Z95.5 PRESENCE OF CORONARY ANGIOPLASTY IMPLANT 09/08/2019 JUSTA CARDENAS MD Ot E11.9 TYPE 2 DIABETES MELLITUS WITHOUT COMPLIC 09/08/2019 JUSTA CARDENAS MD, Ot F15.10 OTHER STIMULANT ABUSE, UNCOMPLICATED 09/08/2019 JUSTA CARDENAS MD, Ot F17.210 NICOTINE DEPENDENCE, CIGARETTES, UNCOMPL 09/08/2019 JUSTA CARDENAS MD, Ot F32.9 MAJOR DEPRESSIVE DISORDER, SINGLE EPISOD 09/08/2019 JUSTA CARDENAS MD, Ot F41.9 ANXIETY DISORDER, UNSPECIFIED 09/08/2019 JUSTA CARDENAS MD, Ot G40.909 EPILEPSY, UNSP, NOT INTRACTABLE, WITHOUT 09/08/2019 JUSTA CARDENAS MD, Ot I25.2 OLD MYOCARDIAL INFARCTION 09/08/2019 JUSTA CARDENAS MD, Ot J44.9 CHRONIC OBSTRUCTIVE PULMONARY DISEASE, U 09/08/2019 JUSTA CARDENAS MD, Ot R07.89 OTHER CHEST PAIN 09/08/2019 JUSTA CARDENAS MD, Ot R07.9 CHEST PAIN, UNSPECIFIED 09/08/2019 JUSTA CARDENAS MD, Ot Z79.02 GILL TENDER (CURRENT) USE OF ANTITHROMBOTI 09/08/2019 JUSTA CARDENAS MD, Ot Z79.4 GILL TENDER (CURRENT) USE OF INSULIN 09/08/2019 JUSTA CARDENAS MD, Ot Z79.52 RESIDENTIAL (CURRENT) USE OF SYSTEMIC STER 09/08/2019 JUSTA CARDENAS MD, Ot Z79.82 RESIDENTIAL (CURRENT) USE OF ASPIRIN 09/08/2019 JUSTA CARDENAS MD, Ot Z82.49 FAMILY HX OF ISCHEM HEART DIS AND OTH DI 09/08/2019 JUSTA CARDENAS MD, Ot Z88.5 ALLERGY STATUS TO NARCOTIC AGENT STATUS 09/08/2019 JUSTA CARDENAS MD, Ot Z91.19 PATIENT'S NONCOMPLIANCE W [facility] 09/08/2019 JUSTA CARDENAS MD, Ot Z95.5 PRESENCE OF CORONARY ANGIOPLASTY IMPLANT Procedures Code Description Performed By Per formed On [id number] DI LATION OF 1 COR ART WITH DRUG-ELUT INT 05/05/2018 [id number] ME ASURE OF CARDIAC SAMPL PRESSURE, L H 05/05/2018 [id number] FL UOROSCOPY OF MULT COR ART USING L OSM 05/05/2018 [id number] FL UOROSCOPY OF LEFT HEART USING LOW OSMO 05/05/2018 [id number] FL UOROSCOPY OF AORTA, BI LE ART [...] - 04/09/18 13:5 7 Bacterial throat culture [facility] Complete blood count (CBC) with automate d [...] 1.8-2.4 Whole blood basic metabolic panel - 12/1 7/18 03:30 Serum or plasma sodium measurement (moles/volume) [...] identification in wound by culture NG NRG Complete blood count (CBC) with automate d white blood cell (WBC) differential - 09/04/19 18:56 Blood leukocytes automated count (number/volume) 8.2 10*3/uL 4.3-11.0 Blood erythrocytes automated count (number/volume) 4.63 10*6/uL 4.35-5.85 Venous blood hemoglobin measurement (mass/volume) 13.3 g/dL 11.5-16.0 Blood hematocrit (volume fraction) 40 % 35-52 Automated erythrocyte mean corpuscular volume 86 [ foz_us] 80-99 Automated erythrocyte mean corpuscular h emoglobin (mass per erythrocyte) 29 pg 25-34 Automated erythrocyte mean corpuscular h emoglobin concentration measurement (mass/volume) 34 g/dL 32-36 Automated erythrocyte distribution width ratio 12. 6 % 10.0- 14.5 Automated blood platelet count (count/volume) 227 10*3/uL 130-400 Automated blood platelet mean volume measurement 11.4 [foz_us] 7.4-10.4 Automated blood neutrophils/100 leukocytes 50 % 42-75 Automated blood lymphocytes/100 leukocytes 41 % 12-44 Blood monocytes/100 leukocytes 6 % 0-12 Automated blood eosinophils/100 leukocytes 2 % 0-10 Automated blood basophils/100 leukocytes 1 % 0-10 Blood neutrophils automated count (number/volume) 4.1 10*3 1.8-7.8 Blood lymphocytes automated count (number/volume) 3.4 10*3 1.0-4.0 Blood monocytes automated count (number/volume) 0. 5 10*3 0.0-1.0 Automated eosinophil count 0.2 10*3/uL 0 .0-0.3 Automated blood basophil count (count/volume) 0.1 10*3/uL 0.0-0.1 PT panel in platelet poor plasma by coag ulation assay - 09/04/19 18:56 Prothrombin time (PT) in platelet poor plasma by coagu lation assay 13.5 s 12.2-14.7 INR in platelet poor plasma or blood by coagulation as say 1.0 0.8-1.4 Comprehensive metabolic panel - 09/04/19 18:56 Serum or plasma sodium measurement (moles/volume) 140 mmol/L 135-145 Serum or plasma potassium measurement (moles/volume) 3.7 mmol/L 3.6-5.0 Serum or plasma chloride measurement (moles/volume) 101 mmol/L 98-107 Carbon dioxide 26 mmol/L 21-32 [...] NRG Serum or plasma glucose measurement (mass/volume) 252 mg/dL 70-105 Serum or plasma calcium measurement (mass/volume) 9.4 mg/dL 8.5-10.1 Serum or plasma total bilirubin measurement (mass/volu me) 0.4 mg/dL 0.1-1.0 Serum or plasma alkaline phosphatase nguyễn surement (enzymatic activity/volume) 77 U/L 40-136 Serum or plasma aspartate aminotransfera se measurement (enzymatic activity/volume) 14 U/L 5-34 Serum or plasma alanine aminotransferase measurement (enzymatic activity/volume) 12 U/L 0-55 Serum or plasma protein measurement (mass/volume) 6.7 g/dL 6.4-8.2 Serum or plasma albumin measurement (mass/volume) 4.0 g/dL 3.2-4.5 CALCIUM CORRECTED 9.4 mg/dL 8.5-10.1 TROPONIN I FS - 09/04/19 18:56 TROPONIN I FS < 0.30 <0.30 PROBNP FS - 09/04/19 18:56 PROBNP FS 100.1 pg/mL <75.0 Serum or plasma ethanol measurement (mas s/volume) - 09/04/19 18:56 Serum or plasma ethanol measurement (mass/volume) < mg/dL <10 Complete urinalysis with reflex to cultu re - 04/16/20 19:50 Urine color determination YELLOW NRG Urine clarity [...] by automated test strip (mass/volume) 0.2 mg/dL < = 1.0 Urine leukocyte esterase detection by dipstick NEG [...] NO NRG Urine drug screening test - 09/04/19 19: 50 Urine phencyclidine detection by screening method NEGATIVE NEGATIVE Urine benzodiazepines detection by screening method NEGATIVE NEGATIVE Urine cocaine detection NEGATIVE NEGATI VE Urine amphetamines detection by screening method P OSITIVE NEGATIVE Urine methamphetamine detection by screening method POSITIVE NEGATIVE Urine cannabinoids detection by screening method P OSITIVE NEGATIVE Urine opiates detection by screening method NEGATI VE NEGATIVE Urine barbiturates detection NEGATIVE N EGATIVE Screening urine tricyclic antidepressants detection NEGATIVE NEGATIVE Urine methadone detection by screening method NEGA TIVE NEGATIVE Urine oxycodone detection NEGATIVE NEGA TIVE Urine propoxyphene detection NEGATIVE N EGATIVE Encounters ACCT No. Visit Date/Time Discharge Status Pt. Type Provider Facility Loc./Unit Complaint [id number] 10/04/2016 15:30:00 017 23:59:59 CLS Preadmit MARE BAILEY APRN Via [facility] RT J45.909 [id number] 06/26/2013 14:58:00 014 16:27:00 DIS Emergency TALI GOLDSMITH APRN Via [facility] ER FALL/RIGHT ANKLE PAIN [id number] 12/01/2018 20:34:00 00:57:00 DIS Emergency ALLIE STRATTON, CHAPARRO Galeas [facility] ER FS CHEST PAIN [id number] 09/04/2019 18:41:00 20:44:00 DIS Emergency RONALD STRATTON, JUSTA W [facility] ER FS CHEST PAIN [id number] 03/08/2019 13:09:00 17:21:00 DIS Emergency VETO STRATTON, MALLORIE Mcleod [facility] ER STEMI [id number] 02/17/2019 16:29:00 17:16:00 DIS Emergency RONNI STRATTON, JAIME Zapata [facility] ER FS SASHA ARM PAIN [id number] 11/25/2018 16:22:00 17:42:00 DIS Outpatient SABRINA FRANCO DO Via [facility] ER FS LT FOOT INJ [id number] 09/16/2018 17:10:00 13:12:00 DIS Inpatient SHABNAM STRATTON, JERSEY Hagen [facility] 4TH ABD PAIN; W/V; PANCREAT ITIS [id number] 09/02/2018 18:14:00 22:09:00 DIS Emergency CHAPARRO KELLEY MD Via [facility] ER FS CHEST PAIN [id number] 08/16/2018 17:26:00 19:10:00 DIS Emergency NATE MULLER DO Via [facility] ER FS EAR PIERCING PAIN [id number] 08/13/2018 08:53:00 23:59:59 CLS Outpatient MARE BAILEY APRN Via [facility] RAD ABN FINDING ON LUNG FIELD,ASTHMA,DYSPNEA [id number] 07/12/2018 10:55:00 12:05:00 DIS Emergency MARIYA PETERSEN DO Via [facility] ER FS BUTTOCK ABSCESS [id number] 06/27/2018 14:33:00 019 15:00:00 DIS Inpatient SHABNAM STRATTON, JERSEY Hagen [facility] ICU CHEST PAIN/ASHD [id number] 05/05/2018 09:38:00 018 12:53:00 DIS Inpatient CHRISTINA STRATTON, Maksim SMITH Via [facility] ICU STEMI [id number] 04/09/2018 13:46:00 018 14:38:00 DIS Emergency SKIP HALLMAN Via [facility] ER COLD SYMPTOMS [id number] 02/21/2018 10:43:00 23:59:59 CLS Outpatient CHRISTINA STRATTON, Maksim SMITH Via [facility] CARD CAD,HTN [id number] 12/18/2017 16:17:00 018 23:59:59 CLS Emergency MALLORIE LAWS MD Via [facility] ER CHEST PAIN;LEFT ARM NUMB [id number] 11/28/2017 13:23:00 018 23:59:59 CLS Outpatient TORIN STRATTON, VERA Melton ([facility]U) Via [facility] RT ASTHMA,COPD [id number] 11/23/2017 20:38:00 018 22:28:00 DIS Emergency KEN JAVIER DO Vi a [facility] ER BOIL ON GENITAL [id number] 11/17/2017 20:28:00 018 22:56:00 DIS Emergency ALLIE STRATTON, CHAPARRO Galeas Via [facility] ER FACE GOING NUMB,NECK AN D SPINAL PAIN [id number] 10/18/2017 12:21:00 018 15:38:00 DIS Outpatient CARL ROJO MD Via [facility] ER VOMITING [id number] 08/14/2016 11:17:00 017 13:57:00 DIS Outpatient KATELYNN DIAZ MD Via [facility] ENDO NAUSEA/VOMITING; BLOOD IN STOOLS [id number] 08/11/2016 14:20:00 017 14:34:00 DIS Outpatient EMILY STRATTON, KATELYNN Schaeffer [facility] PREOP NAUSEA/VOMITING; BLOOD IN STOOLS [id number] 12/02/2018 15:02:00 Document Registration [id number] 08/21/2018 09:44:00 Document Registration [id number] 07/19/2018 08:26:00 Document Registration [id number] 06/26/2013 14:58:00 Document Registration [id number] 07/19/2018 08:26:00 019 13:30:00 DIS Emergency BRETT BRADEN DO Via [facility] ER FS CHEST PAIN
[2019-10-02 21:36] VITALS: BP 114/74
[2019-10-02] MEDS ORDERED: DICL75TA2 PO (21:36)
--- NOTE | 2019-10-02 21:36 | ED Lower Extremity ---
General Chief Complaint: Lower Extremity Stated Complaint: ROLLED ANKLE Source: patient Exam Limitations: no limitations History of Present Illness Date Seen by Provider: October 02, 2019 Time Seen by Provider: 21:25 Initial Comments This patient is a 44-year-old female presents to the emerge from states she stepped wrong on walking and twisted her right ankle. Patient complains of pain. We'll do medical evaluation treatment is needed. No obvious signs of injury. Pain/Injury Location: right ankle Method of Injury: twisted Modifying Factors: Worse With Cold Therapy, Worse With Immobilization, Worse With Jarring; Improves With Movement; Worse With Pain Medication, Worse With Rest, Worse With Other Allergies and Home Medications Allergies Coded Allergies: hydromorphone (Verified Allergy, Unknown, b/p and oxygen level drop, 09/16/18) tramadol (Verified Allergy, Unknown, ANAPHYLAXIS, 09/16/18) Uncoded Allergies: air casts (Allergy, Unknown, 11/28/17) Home Medications Albuterol Sulfate 1 Puff Puff, 2 PUFF IH Q4H PRN for SHORTNESS OF BREATH, (Reported) Aspirin 81 Mg Tablet.dr, 81 MG PO HS, (Reported) Atorvastatin Calcium 40 Mg Tablet, 40 MG PO HS, (Reported) Bupropion HCl 150 Mg Tablet.er, 150 MG PO BID, (Reported) Clopidogrel Bisulfate 75 Mg Tablet, 75 MG PO HS, (Reported) Diclofenac Potassium 50 Mg Tablet, 50 MG PO TID Prescribed by: JAIME RUDOLPH on 02/17/19 1704 Diclofenac Sodium 75 Mg Tablet.dr, 75 MG PO BID Prescribed by: JUSTA CARDENAS on 10/02/19 2136 Dolutegravir Sodium 50 Mg Tablet, 50 MG PO HS, (Reported) Emtricitabine/Tenofov Alafenam 1 Each Tablet, 1 TAB PO HS, (Reported) Estradiol 2 Mg Tablet, 2 MG PO DAILY, (Reported) Furosemide 40 Mg Tablet, 40 MG PO DAILY, (Reported) Hydrocodone Bit/Acetaminophen 1 Each Tablet, 1 TAB PO TID PRN for PAIN-MODERATE, (Reported) Hydrocodone Bit/Acetaminophen 1 Ea Tablet, 1 EACH PO Q6H PRN for BREAK THRU FOOT PAIN Prescribed by: SABRINA FRANCO on 11/25/18 1723 Insulin Aspart 100 Unit/1 Ml Susp, PER INSULIN PUMP, (Reported) Lisinopril 5 Mg Tablet, 5 MG PO HS, (Reported) Lisinopril 2.5 Mg Tablet, 2.5 MG PO DAILY, (Reported) Metformin HCl 500 Mg Tab.er.24h, 1,000 MG PO BID, (Reported) TAKES 2 (500MG) TABLETS Metoprolol Tartrate 25 Mg Tablet, 25 MG PO BID, (Reported) Omeprazole 40 Mg Capsule.dr, 40 MG PO DAILY, (Reported) Ondansetron 8 Mg Tab.rapdis, 8 MG PO Q4H PRN for NAUSEA/VOMITING-1ST LINE, (Reported) Pregabalin 75 Mg Capsule, 75 MG PO DAILY, (Reported) Pregabalin 75 Mg Capsule, 150 MG PO HS, (Reported) TAKES 2 (75MG) CAPSULES Sucralfate 1 Gm Tablet, 1 GM PO ACHS PRN for INDIGESTION, (Reported) Sulfamethoxazole/Trimethoprim 1 Each Tablet, 1 EACH PO BID Prescribed by: MALLORIE LAWS on 03/08/19 5665 Patient Home Medication List Home Medication List Reviewed: Yes Review of Systems Constitutional: No no symptoms reported; see HPI; No chills, No diaphoresis, No dizziness, No fever, No malaise, No weakness, No weight gain, No weight loss, No other EENTM: No see HPI, No no symptoms reported, No ear discharge, No hearing loss, No ear pain, No blurred vision, No double vision, No eye pain, No tearing, No vision loss, No dental problems, No hoarseness, No mouth pain, No mouth swelling, No epistaxis, No nose congestion, No nose pain, No throat pain, No throat swelling, No other Respiratory: No no symptoms reported, No see HPI, No cough, No dyspnea on exertion, No hemoptysis, No orthopnea, No phlegm, No short of breath, No stridor, No wheezing, No other Cardiovascular: No no symptoms reported, No see HPI, No chest pain, No edema, No Hx of Intervention, No palpitations, No syncope, No vascular heart diseas, No other Gastrointestinal: No RUQ, No LUQ, No RLQ, No LLQ, No no symptoms reported, No see HPI, No abdominal pain, No constipation, No diarrhea, No dysphagia, No hematemesis, No heartburn, No jaundice, No loss of appetite, No melena, No na usea, No vomiting, No other Musculoskeletal: No no symptoms reported; see HPI; No back pain, No gout; joint pain; No joint swelling, No muscle pain, No muscle stiffness, No muscle cramps, No muscle twitching, No muscle weakness, No neck pain, No other Skin: No no symptoms reported, No see HPI, No change in color, No change in hair/nails, No dryness, No hx of skin cancer, No lesions, No lumps, No pruritus, No rash, No other Psychiatric/Neurological: Denies No Symptoms Reported, Denies See HPI, Denies Anxiety, Denies Depressed, Denies Emotional Problems, Denies Headache, Denies Numbness, Denies Paresthesia, Denies Pre-Existing Deficit, Denies Seizure, Denies Tingling, Denies Tremors, Denies Weakness, Denies Other All Other Systems Reviewed Negative Unless Noted: Yes Past Nptbpwm-Pvthph-Firdrd Hx Patient Social History Drug of Choice: MJ methamphetamine Type Used: Cigarettes 2nd Hand Smoke Exposure: No Recent Hopitalizations: No Immunizations Up To Date Date of Pneumonia Vaccine: Feb 18, 2013 Date of Influenza Vaccine: Mar 06, 2018 Seasonal Allergies Seasonal Allergies: No Past Medical History Surgeries: No Coronary Stent, Eye Surgery, Gallbladder, Hysterectomy, Tubal Ligation Respiratory: Yes Asthma, COPD Cardiac: No Heart Attack Neurological: Yes (psuedoseizure when really stressed out) Seizure Disorder 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 Sexually Transmitted Disease: No HIV/AIDS: Yes Genitourinary: No Gastrointestinal: No Musculoskeletal: Yes (patient reports herniated, bulging cervical discs) Arthritis Endocrine: Yes Diabetes, Insulin dep HEENT: No Eye Injury Loss of Vision: Left Cancer: No Psychosocial: Yes Anxiety, Depression Integumentary: No Blood Disorders: Yes (Hep C, HIV) Adverse Reaction/Blood Tranf: No Family Medical History Cardiovascular disease 19 FATHER 19 MOTHER Diabetes mellitus 19 FATHER FH: lung disease 19 MOTHER Heart Disease, Diabetes, Hypertension Physical Exam Vital Signs Capillary Refill : Height, Weight, BMI Height: 5'5.00" Weight: 219lbs. 3.0oz. [id number]; 31.00 BMI Method:Stated General Appearance: WD/WN, no apparent distress HEENT: PERRL/EOMI, normal ENT inspection, TMs normal, pharynx normal Neck: non-tender, full range of motion, supple, normal inspection Cardiovascular: normal peripheral pulses, regular rate, rhythm, no edema, no gallop, no JVD, no murmur Respiratory: chest non-tender, lungs clear, normal breath sounds, no respiratory distress, no accessory muscle use Gastrointestinal: normal bowel sounds, non tender, soft, no organomegaly, no pulsatile mass Ankles: right ankle normal inspection, right ankle no evidence of injury, right ankle limited range of motion, right ankle pain Skin: normal color, warm/dry Progress/Results/Core Measures Results/Orders My Orders Orders - JUSTA CARDENAS MD Ankle 3 View Right (10/02/19 21:32) Progress Progress Note : Time: 21:39 Progress Note Negative x-rays. Patient instructed to rest ice elevation compression. Patient offered Pablito wrap versus Air-Stirrup. Patient's follow-up PCP in 2-3 days. Pat ient states, Motrin as needed for pain will route the patient prescription for diclofenac as needed. Diagnostic Imaging Diagonstic Imaging: Xray Plain Films/CT/US/NM/MRI: ankle Comments Negative x-rays Reviewed: Reviewed by Me Departure Impression Primary Impression: Sprain and strain of ankle Disposition: HOME, SELF-CARE Condition: Stable Departure-Patient Inst. Decision time for Depature: 21:39 Referrals: JOHN FARLEY MD (PCP/Family) Primary Care Physician Add. Discharge Instructions: Patient instructed to rest ice elevation compression. Patient offered Pablito wrap versus Air-Stirrup. Patient's follow-up PCP in 2-3 days. Patient states, Motrin as needed for pain will route the patient prescription for diclofenac as needed. All discharge instructions reviewed with patient and/or family. Voiced understanding. Scripts Diclofenac Sodium (Diclofenac Sodium) 75 Mg Tablet. 75 MG PO BID for 10 Days, #20 TAB 0 Refills Prov: JUSTA CARDENAS MD 10/02/19 JUSTA CARDENAS MD October 02, 2019 21:36
--- NOTE | 2019-10-02 21:45 | NUR ---
PT WAS OFFERED 800MG OF IBUPROFEN FOR PAIN. PT REFUSED MEDICATION.
--- NOTE | 2019-10-02 21:51 | NUR ---
PT STATES SHE CANNOT PUT ANY PRESSURE ON RIGHT FOOT. PT WAS ABLE TO TRANSFER SELF FROM BED TO W/C WITHOUT DIFFICULTY.
--- NOTE | 2019-10-02 22:00 | Diagnostic Imaging Report ---
EXAM: Ankle 3 view right. INDICATION: Right ankle pain. COMPARISON: Right ankle radiographs 06/26/2013. FINDINGS: No fracture or malalignment. No suspicious osseous blastic or lytic lesion. Soft tissue shadows are unremarkable. IMPRESSION: No acute radiographic finding in the right ankle. Dictated by: Dictated on workstation # [id number]
--- NOTE | 2019-10-02 22:01 | NUR ---
PT AMBULATED FROM WAITING ROOM TO PARKING LOT WITHOUT DIFFICULTY.
== END 2019-10-02 21:54 | disposition home or self-care (01) ==
LOC: EDUNIT# 21:28 → ER FS 21:30
DX: S93.401A Sprain of unspecified ligament of right ankle, initial encounter (principal); S96.911A Strain of unspecified muscle and tendon at ankle and foot level, right foot, initial encounter; J44.9 Chronic obstructive pulmonary disease, unspecified; I25.2 Old myocardial infarction; G40.909 Epilepsy, unspecified, not intractable, without status epilepticus; E11.9 Type 2 diabetes mellitus without complications; F41.9 Anxiety disorder, unspecified; F32.9 Major depressive disorder, single episode, unspecified; Z21 Asymptomatic human immunodeficiency virus [HIV] infection status; Z88.5 Allergy status to narcotic agent; Z88.8 Allergy status to other drugs, medicaments and biological substances; Z79.02 Long term (current) use of antithrombotics/antiplatelets; Z79.82 Long term (current) use of aspirin; Z79.4 Long term (current) use of insulin; Z79.52 Long term (current) use of systemic steroids; Z95.5 Presence of coronary angioplasty implant and graft; Z82.49 Family history of ischemic heart disease and other diseases of the circulatory system; Z11.59 Encounter for screening for other viral diseases; X50.1XXA Overexertion from prolonged static or awkward postures, initial encounter
CPT/HCPCS: 73610

== ENCOUNTER 2019-11-14 16:30 | Emergency (ER) | payer BC, MEDICAID ==
[~2019-11-14] VITALS: Ht 175.2 cm; Wt 80.0 kg
[~2019-11-14 16:30] MED LIST changes: +DICL75TA2 PO
--- NOTE | 2019-11-14 16:43 | ED GI ---
General Chief Complaint: Abdominal/GI Problems Stated Complaint: ABD PAIN Source of Information: Patient, EMS Exam Limitations: No Limitations History of Present Illness Date Seen by Provider: Nov 14, 2019 Time Seen by Provider: 16:37 Initial Comments Arrives via EMS w c/o right sided abdominal and back pain for 1 hour. History of cholecystectomy. Long-term IV meth user. Allergies and Home Medications Allergies Coded Allergies: hydromorphone (Verified Allergy, Unknown, b/p and oxygen level drop, 09/16/18) tramadol (Verified Allergy, Unknown, ANAPHYLAXIS, 09/16/18) Uncoded Allergies: air casts (Allergy, Unknown, 11/28/17) Home Medications Albuterol Sulfate 1 Puff Puff, 2 PUFF IH Q4H PRN for SHORTNESS OF BREATH, (Reported) Aspirin 81 Mg Tablet.dr, 81 MG PO HS, (Reported) Atorvastatin Calcium 40 Mg Tablet, 40 MG PO HS, (Reported) Bupropion HCl 150 Mg Tablet.er, 150 MG PO BID, (Reported) Clopidogrel Bisulfate 75 Mg Tablet, 75 MG PO HS, (Reported) Diclofenac Potassium 50 Mg Tablet, 50 MG PO TID Prescribed by: JAIME RUDOLPH on 02/17/19 1704 Diclofenac Sodium 75 Mg Tablet.dr, 75 MG PO BID Prescribed by: JUSTA CARDENAS on 10/02/19 2136 Dolutegravir Sodium 50 Mg Tablet, 50 MG PO HS, (Reported) Emtricitabine/Tenofov Alafenam 1 Each Tablet, 1 TAB PO HS, (Reported) Estradiol 2 Mg Tablet, 2 MG PO DAILY, (Reported) Furosemide 40 Mg Tablet, 40 MG PO DAILY, (Reported) Hydrocodone Bit/Acetaminophen 1 Each Tablet, 1 TAB PO TID PRN for PAIN-MODERATE, (Reported) Hydrocodone Bit/Acetaminophen 1 Ea Tablet, 1 EACH PO Q6H PRN for BREAK THRU FOOT PAIN Prescribed by: SABRINA FRANCO on 11/25/18 1723 Insulin Aspart 100 Unit/1 Ml Susp, PER INSULIN PUMP, (Reported) Lisinopril 5 Mg Tablet, 5 MG PO HS, (Reported) Lisinopril 2.5 Mg Tablet, 2.5 MG PO DAILY, (Reported) Metformin HCl 500 Mg Tab.er.24h, 1,000 MG PO BID, (Reported) TAKES 2 (500MG) TABLETS Metoprolol Tartrate 25 Mg Tablet, 25 MG PO BID, (Reported) Omeprazole 40 Mg Capsule.dr, 40 MG PO DAILY, (Reported) Ondansetron 8 Mg Tab.rapdis, 8 MG PO Q4H PRN for NAUSEA/VOMITING-1ST LINE, (Reported) Pregabalin 75 Mg Capsule, 75 MG PO DAILY, (Reported) Pregabalin 75 Mg Capsule, 150 MG PO HS, (Reported) TAKES 2 (75MG) CAPSULES Sucralfate 1 Gm Tablet, 1 GM PO ACHS PRN for INDIGESTION, (Reported) Sulfamethoxazole/Trimethoprim 1 Each Tablet, 1 EACH PO BID Prescribed by: MALLORIE LAWS on 03/08/19 1705 Patient Home Medication List Home Medication List Reviewed: Yes Review of Systems Review of Systems Constitutional: No fever; malaise Respiratory: Denies Cough, Denies Shortness of Air Cardiovascular: Denies Chest Pain, Denies Edema Gastrointestinal: See HPI, Abdominal Pain; Denies Diarrhea; Nausea; Denies Vomiting Musculoskeletal: back pain (low back) Past Lfjukbm-Xhjaia-Jwdynk Hx Past Med/Social Hx: Reviewed Nursing Past Med/Soc Hx Patient Social History Drug of Choice: MJ methamphetamine, POT Type Used: Cigarettes 2nd Hand Smoke Exposure: No Recent Foreign Travel: No Contact w/Someone Who Travel: No Recent Hopitalizations: No Immunizations Up To Date Date of Pneumonia Vaccine: Feb 18, 2013 Date of Influenza Vaccine: Mar 06, 2018 Seasonal Allergies Seasonal Allergies: No Past Medical History Surgeries: No Coronary Stent, Eye Surgery, Gallbladder, Hysterectomy, Tubal Ligation Respiratory: Yes Asthma, COPD Cardiac: No Heart Attack Neurological: Yes (psuedoseizure when really stressed out) Seizure Disorder 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 Sexually Transmitted Disease: No HIV/AIDS: Yes Genitourinary: No Gastrointestinal: No Musculoskeletal: Yes (patient reports herniated, bulging cervical discs) Arthritis Endocrine: Yes Diabetes, Insulin dep HEENT: No Eye Injury Loss of Vision: Left Cancer: No Psychosocial: Yes Anxiety, Depression Integumentary: No Blood Disorders: Yes (Hep C, HIV) Adverse Reaction/Blood Tranf: No Family Medical History Cardiovascular disease 19 FATHER 19 MOTHER Diabetes mellitus 19 FATHER FH: lung disease 19 MOTHER Heart Disease, Diabetes, Hypertension Physical Exam Vital Signs Vital Signs - First Documented 11/14/19 16:30 Temp 35.6 Pulse 85 Resp 16 B/P (MAP) 143/99 (114) Pulse Ox 97 O2 Delivery Room Air Capillary Refill : Height/Weight/BMI Height: 5'5.00" Weight: 219lbs. 3.0oz. 99.814479ah; 32.00 BMI Method:Stated General Appearance: other (anxious, hystrionic, disheveled and poor hygiene. ) Neck: non-tender, supple Respiratory: chest non-tender, lungs clear Cardiovascular: regular rate, rhythm, no JVD Gastrointestinal: soft, no pulsatile mass; No distended; guarding, tenderness (diffuse right sided) Extremities: no pedal edema, no calf tenderness Back: no CVA tenderness, no vertebral tenderness Focused Exam Lactate Level 11/14/19 16:40: Lactic Acid Level 1.68 Lactic Acid Level Laboratory Tests Test 11/14/19 16:40 Lactic Acid Level 1.68 MMOL/L (0.50-2.00) Progress/Results/Core Measures Results/Orders Lab Results Laboratory Tests Test 11/14/19 16:40 11/14/19 19:00 Range/Units White Blood Count 9.8 4.3-11.0 10^3/uL Red Blood Count 5.01 4.35-5.85 10^6/uL Hemoglobin 14.3 11.5-16.0 G/DL Hematocrit 43 35-52 % Mean Corpuscular Volume 86 80-99 FL Mean Corpuscular Hemoglobin 29 25-34 PG Mean Corpuscular Hemoglobin Concent 33 32-36 G/DL Red Cell Distribution Width 12.8 10.0-14.5 % Platelet Count 297 130-400 10^3/uL Mean Platelet Volume 11.2 H 7.4-10.4 FL Neutrophils (%) (Auto) 56 42-75 % Lymphocytes (%) (Auto) 36 12-44 % Monocytes (%) (Auto) 6 0-12 % Eosinophils (%) (Auto) 2 0-10 % Basophils (%) (Auto) 0 0-10 % Neutrophils # (Auto) 5.4 1.8-7.8 X 10^3 Lymphocytes # (Auto) 3.5 1.0-4.0 X 10^3 Monocytes # (Auto) 0.6 0.0-1.0 X 10^3 Eosinophils # (Auto) 0.2 0.0-0.3 10^3/uL Basophils # (Auto) 0.0 0.0-0.1 10^3/uL Sodium Level 137 135-145 MMOL/L Potassium Level 4.1 3.6-5.0 MMOL/L Chloride Level 99 98-107 MMOL/L Carbon Dioxide Level 24 21-32 MMOL/L Anion Gap 14 5-14 MMOL/L Blood Urea Nitrogen 8 7-18 MG/DL Creatinine 0.50 L 0.60-1.30 MG/DL Estimat Glomerular Filtration Rate > 60 BUN/Creatinine Ratio 16 Glucose Level 370 H 70-105 MG/DL Lactic Acid Level 1.68 0.50-2.00 MMOL/L Calcium Level 9.7 8.5-10.1 MG/DL Corrected Calcium 9.7 8.5-10.1 MG/DL Total Bilirubin 0.6 0.1-1.0 MG/DL Aspartate Amino Transf (AST/SGOT) 11 5-34 U/L Alanine Aminotransferase (ALT/SGPT) 11 0-55 U/L Alkaline Phosphatase 90 40-136 U/L Total Protein 7.3 6.4-8.2 GM/DL Albumin 4.0 3.2-4.5 GM/DL Lipase 19 8-78 U/L Serum Alcohol < 10 <10 MG/DL Urine Color YELLOW Urine Clarity CLEAR Urine pH 6.0 5-9 Urine Specific [place] 1.010 L 1.016-1.022 Urine Protein NEGATIVE NEGATIVE Urine Glucose (UA) 3+ H NEGATIVE Urine Ketones NEGATIVE NEGATIVE Urine Nitrite NEGATIVE NEGATIVE Urine Bilirubin NEGATIVE NEGATIVE Urine Urobilinogen 0.2 < = 1.0 MG/DL Urine Leukocyte Esterase NEGATIVE NEGATIVE Urine RBC (Auto) NEGATIVE NEGATIVE Urine RBC RARE /HPF Urine WBC NONE /HPF Urine Crystals NONE /LPF Urine Bacteria NONE /HPF Urine Casts NONE /LPF Urine Mucus NEGATIVE /LPF Urine Culture Indicated NO Urine Opiates Screen NEGATIVE NEGATIVE Urine Oxycodone Screen NEGATIVE NEGATIVE Urine Methadone Screen NEGATIVE NEGATIVE Urine Propoxyphene Screen NEGATIVE NEGATIVE Urine Barbiturates Screen NEGATIVE NEGATIVE Ur Tricyclic Antidepressants Screen NEGATIVE NEGATIVE Urine Phencyclidine Screen NEGATIVE NEGATIVE Urine Amphetamines Screen POSITIVE H NEGATIVE Urine Methamphetamines Screen NEGATIVE NEGATIVE Urine Benzodiazepines Screen POSITIVE H NEGATIVE Urine Cocaine Screen NEGATIVE NEGATIVE Urine Cannabinoids Screen POSITIVE H NEGATIVE My Orders Orders - JAYDEN HARVEY DO Ct Abdomen/Pelvis W (11/14/19 16:35) Cbc With Automated Diff (11/14/19 16:35) Comprehensive Metabolic Panel (11/14/19 16:35) Lactic Acid Analyzer (11/14/19 16:35) Lipase (11/14/19 16:35) Urinalysis (11/14/19 16:35) Drug Screen Stat (Urine) (11/14/19 16:35) Alcohol (11/14/19 16:35) Ns Iv 1000 Ml (Sodium Chloride 0.9%) (11/14/19 16:45) Fentanyl Injection (Sublimaze Injection (11/14/19 16:45) Lorazepam Injection (Ativan Injection) (11/14/19 16:45) Iohexol Injection (Omnipaque 350 Mg/Ml 1 (11/14/19 17:30) Received Contrast (Hold Metformin- Contr (11/14/19 17:30) Sodium Chloride Flush (Catheter Flush Sy (11/14/19 17:30) Straight Cath For Spec.-Adult (11/14/19 19:04) Medications Given in ED Current Medications Medications Dose Ordered Sig/Randy Route Start Time Stop Time Status Last Admin Dose Admin Fentanyl Citrate 50 mcg ONCE ONCE IVP 11/14/19 16:45 11/14/19 16:46 DC 11/14/19 16:53 50 MCG Iohexol 100 ml ONCE ONCE IV 11/14/19 17:30 11/14/19 17:31 DC 11/14/19 17:46 100 ML Lorazepam 1 mg ONCE ONCE IVP 11/14/19 16:45 11/14/19 16:46 DC 11/14/19 16:53 1 MG Sodium Chloride 10 ml NEEDED PRN IV 11/14/19 17:30 11/14/19 19:33 DC 11/14/19 17:46 10 ML Vital Signs/I&O 11/14/19 11/14/19 16:30 19:33 Temp 35.6 Pulse 85 73 Resp 16 16 B/P (MAP) 143/99 (114) 121/72 Pulse Ox 97 96 O2 Delivery Room Air Room Air Progress Progress Note : Time: 18:23 Progress Note Patient resting comfortably, denies pain. Discussed normal labs and abnormal CT findings of possible kidney infarction. Explained likely 2 to her drug abuse. 1910- still resting and pain free. Waiting on UA Diagnostic Imaging Diagonstic Imaging: CT Plain Films/CT/US/NM/MRI: abdomen Comments IMPRESSION: 1. Abnormal areas of parenchymal enhancement of both kidneys, right greater than left. Features can be seen with underlying renal infarcts. Possibility of pyelonephritis is also a consideration. Additionally, one lesion of the right kidney is indeterminate and could be reflective of very early potential neoplasm. Follow-up evaluation is recommended. 2. Diffuse distention of the stomach with questionable wall thickening of the pylorus. It may simply be owing to recent meal ingestion with possibility of gastroparesis or gastric outlet obstruction not excluded. Additionally, its thickened loops of small bowel may be reflective of underlying component of enteritis and/or potentially delayed small bowel transit time. Telephone call has been made to the emergency department at time of this dictation. Dictated on workstation # [id number] Dict: 11/14/19 1804 Trans: 11/14/19 1825 [id number] Interpreted by: ISAIAH CISNEROS DO Electronically signed by: Reviewed: Discussed w/Radiologist Departure Impression Primary Impression: Abdominal pain Qualified Codes: R10.31 - Right lower quadrant pain Additional Impression: Abnormal finding on CT scan Disposition: 01 HOME, SELF-CARE Condition: Improved Departure-Patient Inst. Decision time for Depature: 18:44 Referrals: JOHN REN MD (PCP/Family) Primary Care Physician Patient Instructions: Acute Abdomen (Belly Pain), Adult (DC) Add. Discharge Instructions: Call Dr Ren to schedule a follow-up appointment in 3 to 4 days regarding your abnormal CT findings. Return to the nearest ER if you have return of severe abdominal, flank or back pain All discharge instructions reviewed with patient and/or family. Voiced understanding. JAYDEN HARVEY DO Nov 14, 2019 16:43
[2019-11-14] MEDS ORDERED: LORazepam INJ 2 MG/ML (ATIVAN) VIAL IVP ONE (16:45)
[2019-11-14] MEDS ORDERED: fentaNYL INJECTION 100 MCG/2 ML AMP IVP ONE (16:45)
[2019-11-14] MEDS ORDERED: NS IV 1000 ML 1,000 ML IV SCH (16:45)
[2019-11-14 16:57] LABS: BASOPHILS % (AUTO) 0 % (0-10); EOSINOPHILS % (AUTO) 2 % (0-10); HEMATOCRIT 43 % (35-52); HEMOGLOBIN 14.3 G/DL (11.5-16.0); LYMPHOCYTES # (AUTO) 3.5 X 10^3 (1.0-4.0); LYMPHOCYTES % (AUTO) 36 % (12-44); MEAN CORPUSCULAR HEMOGLOBIN 29 PG (25-34); MEAN CORPUSCULAR HGB CONC 33 G/DL (32-36); MEAN CORPUSCULAR VOLUME 86 FL (80-99); MEAN PLATELET VOLUME 11.2 FL (7.4-10.4); MONOCYTES % (AUTO) 6 % (0-12); NEUTROPHILS # (AUTO) 5.4 X 10^3 (1.8-7.8); NEUTROPHILS % (AUTO) 56 % (42-75); PLATELET COUNT 297 10^3/uL (130-400); RED CELL DISTRIBUTION WIDTH 12.8 % (10.0-14.5); WHITE BLOOD COUNT 9.8 10^3/uL (4.3-11.0)
[2019-11-14 16:58] LABS: EOSINOPHILS # (AUTO) 0.2 10^3/uL (0.0-0.3); MONOCYTES # (AUTO) 0.6 X 10^3 (0.0-1.0)
[2019-11-14 17:18] LABS: ALANINE AMINOTRANSFERASE 11 U/L (0-55); ALKALINE PHOSPHATASE 90 U/L (40-136); BILIRUBIN,TOTAL 0.6 MG/DL (0.1-1.0); BUN/CREATININE RATIO 16; CALCIUM 9.7 MG/DL (8.5-10.1); CARBON DIOXIDE 24 MMOL/L (21-32); CHLORIDE 99 MMOL/L (98-107); GFR ESTIMATED > 60; GLUCOSE 370 MG/DL (70-105); LIPASE 19 U/L (8-78); POTASSIUM 4.1 MMOL/L (3.6-5.0); SODIUM 137 MMOL/L (135-145); TOTAL PROTEIN 7.3 GM/DL (6.4-8.2)
[2019-11-14] MEDS ORDERED: CATHETER FLUSH 10 ML SYR IV PRN (17:30)
[2019-11-14] MEDS ORDERED: HOLD METFORMIN - RECEIVED CONTRAST 20 ML VIAL IV SCH (17:30)
[2019-11-14] MEDS ORDERED: IOHEXOL 350 MG/ML 100 ML (OMNIPAQUE 350) VIAL IV ONE (17:30)
--- NOTE | 2019-11-14 18:25 | Diagnostic Imaging Report ---
PROCEDURE: CT abdomen and pelvis with contrast. TECHNIQUE: Multiple contiguous axial images were obtained through the abdomen and pelvis after administration of intravenous contrast. Auto Exposure Controls were utilized during the CT exam to meet ALARA standards for radiation dose reduction. INDICATION: Right lower quadrant abdominal pain along with nausea and vomiting starting today. CORRELATION STUDY: 09/16/2018, PET/CT of 08/20/2018. FINDINGS: LOWER THORAX: 15 mm nodule of the right lower lobe appears generally stable from prior PET study. No significant basilar infiltrate. Heart size is enlarged. New apparent calcification along the inferior mid heart margin, nonspecific. Small hiatal hernia. LIVER: Diffuse heterogeneous attenuation, suggestive of likely fatty infiltration. No definitive focal mass. GALLBLADDER: Cholecystectomy. SPLEEN: Unremarkable. PANCREAS: Unremarkable. ADRENAL GLANDS: Unremarkable. KIDNEYS: Somewhat wedge-shaped area of decreased enhancement about the posterosuperior right kidney. Two subtle lower-density areas noted about the posterior interpolar region of the right kidney as well as inferior pole anteriorly. There is also small wedge-shaped area of decreased enhancement of the left kidney. No hydronephrosis. ABDOMINAL AORTA: Moderate atherosclerotic plaque about the abdominal aorta. Celiac trunk and superior mesenteric artery appear patent at their origins. Renal arteries also appearing patent. GASTROINTESTINAL TRACT: Stomach is distended with retained gastric contents. Question of some wall thickening at the pylorus and proximal duodenum. There are few small bowel fluid-filled loops and suggestion of small bowel wall thickening. Slight fecalized material in small bowel in the left lower quadrant. Mild severity of fecal retention of stool in the colon. Portions of the normal appendix are visualized. No abdominal ascites or free air. URINARY BLADDER: Unremarkable. REPRODUCTIVE: Hysterectomy. OSSEOUS STRUCTURES: No acute abnormality. OTHER: None. IMPRESSION: 1. Abnormal areas of parenchymal enhancement of both kidneys, right greater than left. Features can be seen with underlying renal infarcts. Possibility of pyelonephritis is also a consideration. Additionally, one lesion of the right kidney is indeterminate and could be reflective of very early potential neoplasm. Follow-up evaluation is recommended. 2. Diffuse distention of the stomach with questionable wall thickening of the pylorus. It may simply be owing to recent meal ingestion with possibility of gastroparesis or gastric outlet obstruction not excluded. Additionally, its thickened loops of small bowel may be reflective of underlying component of enteritis and/or potentially delayed small bowel transit time. Telephone call has been made to the emergency department at time of this dictation. Dictated by: Dictated on workstation # [id number]
[2019-11-14 19:14] LABS: BILIRUBIN,URINE NEGATIVE (NEGATIVE); CLARITY,URINE CLEAR; COLOR,URINE YELLOW; GLUCOSE, URINE (UA) 3+ (NEGATIVE); KETONES,URINE NEGATIVE (NEGATIVE); LEUKOCYTE ESTERASE ,URINE NEGATIVE (NEGATIVE); NITRITE,URINE NEGATIVE (NEGATIVE); PROTEIN,URINE NEGATIVE (NEGATIVE); RBC,URINE RARE /HPF
[2019-11-14 19:18] LABS: AMPHETAMINE SCREEN, URINE POSITIVE (NEGATIVE); BARBITURATE SCREEN URINE NEGATIVE (NEGATIVE); BENZODIAZEPINES SCREEN URINE POSITIVE (NEGATIVE); CANNABINOID SCREEN, URINE POSITIVE (NEGATIVE); COCAINE SCREEN URINE NEGATIVE (NEGATIVE); METHADONE STAT NEGATIVE (NEGATIVE); METHAMPHETAMINE SCREEN URINE S NEGATIVE (NEGATIVE); OPIATE SCREEN URINE NEGATIVE (NEGATIVE); OXYCODONE STAT NEGATIVE (NEGATIVE); PROPOXYPHENE STAT NEGATIVE (NEGATIVE); TRICYCLIC ANTIDEPRESSANTS SCRE NEGATIVE (NEGATIVE)
[2019-11-14 19:33] VITALS: BP 121/72
== END 2019-11-14 19:33 | disposition home or self-care (01) ==
LOC: EDUNIT# 16:30 → ER FS 16:31
DX: R10.9 Unspecified abdominal pain (principal); R93.5 Abnormal findings on diagnostic imaging of other abdominal regions, including retroperitoneum; J44.9 Chronic obstructive pulmonary disease, unspecified; I25.2 Old myocardial infarction; E11.9 Type 2 diabetes mellitus without complications; F32.9 Major depressive disorder, single episode, unspecified; F41.9 Anxiety disorder, unspecified; Z88.5 Allergy status to narcotic agent; Z79.82 Long term (current) use of aspirin; Z90.49 Acquired absence of other specified parts of digestive tract; Z79.02 Long term (current) use of antithrombotics/antiplatelets; Z79.52 Long term (current) use of systemic steroids; Z79.4 Long term (current) use of insulin; Z21 Asymptomatic human immunodeficiency virus [HIV] infection status; Z82.49 Family history of ischemic heart disease and other diseases of the circulatory system
CPT/HCPCS: 36415; 74177; 80053; 80306; 81000; 83605; 83690; 85025; 99284; G0480; 80320

== ENCOUNTER 2020-04-14 08:37 | Emergency (ER) | payer BC, MEDICAID ==
[~2020-04-14 08:37] MED LIST changes: +ASPI-1238 PO; -ASPI-983 PO
[2020-04-14 08:42] VITALS: BP 150/87
--- NOTE | 2020-04-14 08:56 | ED Lower Extremity ---
General Chief Complaint: Lower Extremity Stated Complaint: RT ANKLE INJ Nursing Triage Note: Was brought over from [facility] clinic for ankle injury. Stepped in a hole 3 days ago and states has been unable to bear weight on the R ankle since injury. Pain is rated at 8/10. Has been taking ibuprofen for pain. Last dose of 800 mg at 0600. Has swelling to R ankle. Has broken R ankle in the past. Nursing Sepsis Screen: No Definite Risk Source: patient Exam Limitations: no limitations History of Present Illness Date Seen by Provider: Apr 14, 2020 Time Seen by Provider: 08:50 Initial Comments 44-year-old female presents with right ankle pain. States she stepped in hole 2 days ago and twisted her ankle and has been having pain since then. Able to ambulate, but with a limp and states pain with weightbearing on the right ankle. States history of fracture her right ankle in the past, denies any other injury. Allergies and Home Medications Allergies Coded Allergies: hydromorphone (Verified Allergy, Unknown, b/p and oxygen level drop, 09/16/18) tramadol (Verified Allergy, Unknown, ANAPHYLAXIS, 09/16/18) Uncoded Allergies: air casts (Allergy, Unknown, 11/28/17) Home Medications Albuterol Sulfate 1 Puff Puff, 2 PUFF IH Q4H PRN for SHORTNESS OF BREATH, (Reported) Aspirin 81 Mg Tablet.dr, 81 MG PO HS, (Reported) Atorvastatin Calcium 40 Mg Tablet, 40 MG PO HS, (Reported) Bupropion HCl 150 Mg Tablet.er, 150 MG PO BID, (Reported) Clopidogrel Bisulfate 75 Mg Tablet, 75 MG PO HS, (Reported) Diclofenac Potassium 50 Mg Tablet, 50 MG PO TID Prescribed by: JAIME RUDOLPH on 02/17/19 1704 Diclofenac Sodium 75 Mg Tablet.dr, 75 MG PO BID Prescribed by: JUSTA CARDENAS on 10/02/19 2136 Dolutegravir Sodium 50 Mg Tablet, 50 MG PO HS, (Reported) Emtricitabine/Tenofov Alafenam 1 Each Tablet, 1 TAB PO HS, (Reported) Estradiol 2 Mg Tablet, 2 MG PO DAILY, (Reported) Furosemide 40 Mg Tablet, 40 MG PO DAILY, (Reported) Hydrocodone Bit/Acetaminophen 1 Each Tablet, 1 TAB PO TID PRN for PAIN-MODERATE, (Reported) Hydrocodone Bit/Acetaminophen 1 Ea Tablet, 1 EACH PO Q6H PRN for BREAK THRU FOOT PAIN Prescribed by: SABRINA FRANCO on 11/25/18 1723 Insulin Aspart 100 Unit/1 Ml Susp, PER INSULIN PUMP, (Reported) Lisinopril 5 Mg Tablet, 5 MG PO HS, (Reported) Lisinopril 2.5 Mg Tablet, 2.5 MG PO DAILY, (Reported) Metformin HCl 500 Mg Tab.er.24h, 1,000 MG PO BID, (Reported) TAKES 2 (500MG) TABLETS Metoprolol Tartrate 25 Mg Tablet, 25 MG PO BID, (Reported) Omeprazole 40 Mg Capsule.dr, 40 MG PO DAILY, (Reported) Ondansetron 8 Mg Tab.rapdis, 8 MG PO Q4H PRN for NAUSEA/VOMITING-1ST LINE, (Reported) Pregabalin 75 Mg Capsule, 75 MG PO DAILY, (Reported) Pregabalin 75 Mg Capsule, 150 MG PO HS, (Reported) TAKES 2 (75MG) CAPSULES Sucralfate 1 Gm Tablet, 1 GM PO ACHS PRN for INDIGESTION, (Reported) Sulfamethoxazole/Trimethoprim 1 Each Tablet, 1 EACH PO BID Prescribed by: MALLORIE LAWS on 03/08/19 1705 Patient Home Medication List Home Medication List Reviewed: Yes Review of Systems Constitutional: No fever, No malaise, No weakness Musculoskeletal: see HPI; No back pain; joint pain; No muscle pain, No neck pain Skin: No change in color, No rash Psychiatric/Neurological: Denies Numbness, Denies Paresthesia, Denies Weakness Past Vobikmp-Kruzfd-Vbdzxn Hx Past Med/Social Hx: Reviewed Nursing Past Med/Soc Hx Patient Social History Alcohol Use: Denies Use Recreational Drug Use: Yes Drug of Choice: Marijuana, methamphetamine Smoking Status: Current Everyday Smoker Type Used: Cigarettes 2nd Hand Smoke Exposure: No Recent Foreign Travel: No Contact w/Someone Who Travel: No Recent Infectious Disease Expo: No Recent Hopitalizations: No Immunizations Up To Date Date of Pneumonia Vaccine: Feb 18, 2013 Date of Influenza Vaccine: Mar 06, 2018 Seasonal Allergies Seasonal Allergies: No Past Medical History Surgeries: Yes Coronary Stent, Eye Surgery, Gallbladder, Hysterectomy, Tubal Ligation Respiratory: Yes Asthma, COPD Cardiac: No Heart Attack Neurological: Yes (psuedoseizure when really stressed out) Seizure Disorder 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 Disorders: Yes [employer] History: Hysterectomy Sexually Transmitted Disease: No HIV/AIDS: Yes Genitourinary: No Gastrointestinal: No Musculoskeletal: Yes (patient reports herniated, bulging cervical discs) Arthritis Endocrine: Yes Diabetes, Insulin dep HEENT: No Eye Injury Loss of Vision: Left Cancer: No Psychosocial: Yes Anxiety, Depression Integumentary: No Blood Disorders: Yes (Hep C, HIV) Adverse Reaction/Blood Tranf: No Family Medical History Cardiovascular disease 19 FATHER 19 MOTHER Diabetes mellitus 19 FATHER FH: lung disease 19 MOTHER Heart Disease, Diabetes, Hypertension Physical Exam Vital Signs Vital Signs - First Documented 04/14/20 08:42 Temp 36.5 Pulse 70 Resp 16 B/P (MAP) 150/87 (108) Pulse Ox 99 Capillary Refill : Less Than 3 Seconds Height, Weight, BMI Height: 5'5.00" Weight: 219lbs. 3.0oz. 99.784384ou; 26.00 BMI Method:Stated General Appearance: WD/WN, no apparent distress Back: no CVA tenderness, no vertebral tenderness Legs: right leg non-tender, right leg normal inspection, right leg normal range of motion, right leg no evidence of injury Knees: right knee non-tender, right knee normal inspection, right knee normal range of motion, right knee no evidence of injury Ankles: right ankle normal inspection, right ankle normal range of motion, right ankle bone tenderness, right ankle pain, right ankle soft tissue tenderness Feet: right foot non-tender, right foot normal inspection, right foot normal range of motion, right foot no evidence of injury Neurologic/Psychiatric: no motor/sensory deficits, alert Skin: normal color, warm/dry Progress/Results/Core Measures Results/Orders My Orders Orders - JAYDEN HARVEY DO Ankle 3 View Right (04/14/20 08:52) Vital Signs/I&O 04/14/20 08:42 Temp 36.5 Pulse 70 Resp 16 B/P (MAP) 150/87 (108) Pulse Ox 99 Blood Pressure Mean: 108 Diagnostic Imaging Diagonstic Imaging: Xray Comments Compared to 10/02/2019. Findings: An old well-corticated avulsion off the distal tip of the medial malleolus stable. Swelling about the ankle laterally however this also appears very similar to the prior. There is chronic tibiotalar osteoarthritis not appreciably changed. No new bony abnormality appreciable. Plantar calcaneal spurring is chronic. Impression: Old medial malleolar avulsion and lateral soft tissue swelling unchanged from the comparison study. An acute appearing abnormality cannot be identified. Dictated on workstation # [id number] Dict: 04/14/20911 Trans: 04/14/20914 [facility] [id number] Interpreted by: NIMA KAISER Electronically signed by: Departure Impression Primary Impression: Sprain and strain of ankle Disposition: HOME, SELF-CARE Condition: Stable Departure-Patient Inst. Decision time for Depature: 08:55 Referrals: JOHN FARLEY MD (PCP/Family) Primary Care Physician Patient Instructions: Ankle Sprain (DC) Add. Discharge Instructions: Follow up with your PCP in 2 weeks if not improving. All discharge instructions reviewed with patient and/or family. Voiced understanding. JAYDEN HARVEY DO Apr 14, 2020 08:56
--- NOTE | 2020-04-14 09:16 | Diagnostic Imaging Report ---
Indication: Rolled ankle pain Compared to 10/02/2019. Findings: An old well-corticated avulsion off the distal tip of the medial malleolus stable. Swelling about the ankle laterally however this also appears very similar to the prior. There is chronic tibiotalar osteoarthritis not appreciably changed. No new bony abnormality appreciable. Plantar calcaneal spurring is chronic. Impression: Old medial malleolar avulsion and lateral soft tissue swelling unchanged from the comparison study. An acute appearing abnormality cannot be identified. Dictated by: Dictated on workstation # [id number]
== END 2020-04-14 09:36 | disposition home or self-care (01) ==
LOC: EDUNIT# 08:37 → ER FS 08:39
DX: S93.401A Sprain of unspecified ligament of right ankle, initial encounter (principal); J44.9 Chronic obstructive pulmonary disease, unspecified; I25.2 Old myocardial infarction; E11.9 Type 2 diabetes mellitus without complications; G40.909 Epilepsy, unspecified, not intractable, without status epilepticus; F32.9 Major depressive disorder, single episode, unspecified; F17.210 Nicotine dependence, cigarettes, uncomplicated; Z82.49 Family history of ischemic heart disease and other diseases of the circulatory system; Z83.3 Family history of diabetes mellitus; Z88.5 Allergy status to narcotic agent; Z95.5 Presence of coronary angioplasty implant and graft; Z79.82 Long term (current) use of aspirin; Z79.4 Long term (current) use of insulin; X50.1XXA Overexertion from prolonged static or awkward postures, initial encounter
CPT/HCPCS: 73610

== ENCOUNTER → 2020-06-22 | Outpatient (CLI) | payer BC, MEDICAID ==
[~2020-06-22] MED LIST changes: -CLIN300C11; -CLIN300C11 PO; +CLIN300C12; +CLIN300C12 PO
--- NOTE | 2020-06-22 16:10 | Diagnostic Imaging Report ---
INDICATION: Postmenopausal screening COMPARISON: Baseline FINDINGS: AP Spine L1-L4: [BMD (g/cm2): 1.098] [T-Score: -0.8] [Z-Score: -1.8] [BMD Previous: NA] [BMD % Change: NA] LT Hip Neck: [BMD (g/cm2): 1.094] [T-Score: 0.4] [Z-Score: 0.3] LT Hip Total: [BMD (g/cm2):1.117] [T-Score:0.9] [Z-Score: 0.4] [BMD Previous: NA] [BMD % Change: NA] RT Hip Neck: [BMD (g/cm2):1.131] [T-Score:0.7] [Z-Score:0.6] RT Hip Total: [BMD (g/cm2):1.192] [T-score:1.5] [Z-Score:1.0] [BMD Previous:NA] [BMD % Change:NA] *Indicates significant change from prior examination based on 95% confidence level. World Health Organization criteria for BMD interpretation classify patients as Normal (T-score at or above -1.0), Osteopenic (T-score between -1.0 and -2.5) or Osteoporotic (T-score at or below -2.5). LIMITATIONS AND MODIFICATION: None. FRACTURE RISK (FRAX SCORE): The ten year probability of (%): Major Osteoporotic Fracture: [NA] Hip Fracture: [NA] IMPRESSION: 1. Normal bone mineral density. 2. Baseline examination. 3. See below National Osteoporosis Foundation guidelines on when to potentially initiate pharmacologic therapy. Based on the National Osteoporosis Foundation Guidelines, pharmacologic treatment should be initiated in any of the following, unless clinical conditions suggest otherwise: * Any patient with prior fragility fracture of the hip or vertebrae. A spine fracture indicates 5X risk for subsequent spine fracture and 2X risk for subsequent hip fracture. * Osteoporosis (T-score <-2.5). * Postmenopausal women and men age 50 and older with low bone mass/osteopenia (T-score between -1.0 and -2.5) by DXA and 10-year major osteoporotic fracture greater than 20% or a 10-year probability of hip fracture greater than 3%. These fracture risks are supplied above in the FRAX score, if applicable. * Clinician judgement and/or patient preferences may indicate treatment for people with 10-year fracture probabilities above or below these levels. Dictated by: Dictated on workstation # [id number]
== END ==
LOC: RAD 12:22
PROVIDERS: ATTEND Nurse Practitioner Family
DX: Z21 Asymptomatic human immunodeficiency virus [HIV] infection status (principal); Z79.899 Other long term (current) drug therapy
CPT/HCPCS: 77080

== ENCOUNTER 2020-06-28 16:22 | Emergency (ER) | payer BC, MEDICAID ==
[~2020-06-28] VITALS: Ht 165 cm; Wt 100.0 kg
[2020-06-28] MEDS ORDERED: ASPIRIN 81 MG CHEW (CHILDREN'S ASA) PO ONE (16:45)
--- NOTE | 2020-06-28 16:55 | Diagnostic Imaging Report ---
INDICATION: Chest pain. TECHNIQUE/COMPARISON: A frontal chest was obtained at 4:39 PM and compared to 09/04/2019. FINDINGS: The heart and mediastinal silhouette are normal in appearance. A faint nodular density overlying the right midlung appears similar to the prior study measuring about 1.6 cm. There is no consolidation, pneumothorax, or pleural fluid. IMPRESSION: No acute process in the chest. A faint nodular density overlying the right midlung is unchanged compared to the prior study. This was also stable compared to a CT chest of 07/19/2018. Dictated by: Dictated on workstation # [id number]
[2020-06-28 16:56] LABS: BASOPHILS # (AUTO) 0.1 10^3/uL (0.0-0.1); BASOPHILS % (AUTO) 1 % (0-10); EOSINOPHILS # (AUTO) 0.2 10^3/uL (0.0-0.3); EOSINOPHILS % (AUTO) 2 % (0-10); HEMATOCRIT 40 % (35-52); HEMOGLOBIN 13.4 G/DL (11.5-16.0); LYMPHOCYTES # (AUTO) 3.9 X 10^3 (1.0-4.0); LYMPHOCYTES % (AUTO) 40 % (12-44); MEAN CORPUSCULAR HEMOGLOBIN 29 PG (25-34); MEAN CORPUSCULAR HGB CONC 33 G/DL (32-36); MEAN CORPUSCULAR VOLUME 86 FL (80-99); MEAN PLATELET VOLUME 11.2 FL (7.4-10.4); MONOCYTES # (AUTO) 0.7 X 10^3 (0.0-1.0); MONOCYTES % (AUTO) 7 % (0-12); NEUTROPHILS # (AUTO) 4.8 X 10^3 (1.8-7.8); NEUTROPHILS % (AUTO) 49 % (42-75); PLATELET COUNT 240 10^3/uL (130-400); WHITE BLOOD COUNT 9.7 10^3/uL (4.3-11.0)
[2020-06-28 17:11] LABS: INR 0.9 (0.8-1.4); PROTHROMBIN TIME PATIENT 12.5 SEC (12.2-14.7)
[2020-06-28 17:13] LABS: BUN/CREATININE RATIO 16; CARBON DIOXIDE 27 MMOL/L (21-32); GFR ESTIMATED > 60
[2020-06-28 17:14] LABS: ALANINE AMINOTRANSFERASE 10 U/L (0-55); ALBUMIN 4.1 GM/DL (3.2-4.5); ALKALINE PHOSPHATASE 76 U/L (40-136); BILIRUBIN,TOTAL 0.3 MG/DL (0.1-1.0); CALCIUM 9.5 MG/DL (8.5-10.1); GLUCOSE 228 MG/DL (70-105); LIPASE 25 U/L (8-78); MAGNESIUM 1.8 MG/DL (1.6-2.4); TOTAL PROTEIN 7.3 GM/DL (6.4-8.2)
[2020-06-28] MEDS ORDERED: LORazepam INJ 2 MG/ML (ATIVAN) VIAL IVP STA (17:23)
--- NOTE | 2020-06-28 17:27 | ED Chest Pain ---
General Chief Complaint: Chest Pain Stated Complaint: CHEST PAIN Nursing Triage Note: PT REPORTS SHE HAS HAD CHEST PAIN FOR 3 DAYS OFF AND ON. SHE IS UNDER A LOT OF STRESS BECAUSE SHE HAS COURT COMING UP. Nursing Sepsis Screen: No Definite Risk Source: patient, EMS, old records History of Present Illness Date Seen by Provider: Jun 28, 2020 Time Seen by Provider: 16:28 Initial Comments 44-year-old female presenting by EMS from her mother's house. She complains of over 3 days of chest pain on the left side radiating into her left arm and back. She also has been having increased blood sugars with stress. She has had increased pain with urination. She has increased sores on her body with a h istory of recurrent abscesses and cellulitis. She has increased pain in her right foot from recent fracture and torn tendons and is wearing a cam walker boot. She states that she has a history of chronic anxiety and is taking amitriptyline as well as hydroxyzine but does not feel the medicines are helping as much. She has an appointment on the with her psychologist about this. She has increased anxiety as well about a court date for drug possession and use of methamphetamines. She has a history of diabetes and has an insulin pump as well as a history of heart disease with prior stents and angioplasty. She states the pain feels somewhat similar to when she had prior stents and tam oplasty and also feels similar to anxiety and she cannot tell which is going on currently. She has chronic nausea and that has been worse recently with her anxiety. The chest pains have been improving by taking aspirin but today it was lasting all day. Allergies and Home Medications Allergies Coded Allergies: hydromorphone (Verified Allergy, Unknown, b/p and oxygen level drop, 09/16/18) tramadol (Verified Allergy, Unknown, ANAPHYLAXIS, 09/16/18) Uncoded Allergies: air casts (Allergy, Unknown, 11/28/17) Home Medications Albuterol Sulfate 1 Puff Puff, 2 PUFF IH Q4H PRN for SHORTNESS OF BREATH, (Reported) Aspirin 81 Mg Tablet.dr, 81 MG PO HS, (Reported) Atorvastatin Calcium 40 Mg Tablet, 40 MG PO HS, (Reported) Bupropion HCl 150 Mg Tablet.er, 150 MG PO BID, (Reported) Clonazepam 1 Mg Tablet, 1 MG PO Q8H PRN for ANXIETY Prescribed by: ELIZABETH ESTEVEZ on 06/28/20 182 Clopidogrel Bisulfate 75 Mg Tablet, 75 MG PO HS, (Reported) Diclofenac Potassium 50 Mg Tablet, 50 MG PO TID Prescribed by: JAIME RUDOLPH on 02/17/19 1704 Diclofenac Sodium 75 Mg Tablet.dr, 75 MG PO BID Prescribed by: JUSTA CARDENAS on 10/02/19 2136 Dolutegravir Sodium 50 Mg Tablet, 50 MG PO HS, (Reported) Emtricitabine/Tenofov Alafenam 1 Each Tablet, 1 TAB PO HS, (Reported) Estradiol 2 Mg Tablet, 2 MG PO DAILY, (Reported) Furosemide 40 Mg Tablet, 40 MG PO DAILY, (Reported) Hydrocodone Bit/Acetaminophen 1 Each Tablet, 1 TAB PO TID PRN for PAIN-MODERATE, (Reported) Hydrocodone Bit/Acetaminophen 1 Ea Tablet, 1 EACH PO Q6H PRN for BREAK THRU FOOT PAIN Prescribed by: SABRINA FRANCO on 11/25/18 172 Hydrocodone/Acetaminophen 1 Each Tablet, 1 TAB PO Q6H PRN for PAIN-SEVERE (8-10) Prescribed by: ELIZABETH ESTEVEZ on 06/28/201819 Insulin Aspart 100 Unit/1 Ml Susp, PER INSULIN PUMP, (Reported) Lisinopril 5 Mg Tablet, 5 MG PO HS, (Reported) Lisinopril 2.5 Mg Tablet, 2.5 MG PO DAILY, (Reported) Metformin HCl 500 Mg Tab.er.24h, 1,000 MG PO BID, (Reported) TAKES 2 (500MG) TABLETS Metoprolol Tartrate 25 Mg Tablet, 25 MG PO BID, (Reported) Metronidazole 500 Mg Tablet, 500 MG PO BID Prescribed by: ELIZABETH ESTEVEZ on 06/28/201818 Omeprazole 40 Mg Capsule.dr, 40 MG PO DAILY, (Reported) Ondansetron 8 Mg Tab.rapdis, 8 MG PO Q4H PRN for NAUSEA/VOMITING-1ST LINE, (Reported) Pregabalin 75 Mg Capsule, 75 MG PO DAILY, (Reported) Pregabalin 75 Mg Capsule, 150 MG PO HS, (Reported) TAKES 2 (75MG) CAPSULES Sucralfate 1 Gm Tablet, 1 GM PO ACHS PRN for INDIGESTION, (Reported) Sulfamethoxazole/Trimethoprim 1 Each Tablet, 1 EACH PO BID Prescribed by: MALLORIE LAWS on 03/08/19 5329 Patient Home Medication List Home Medication List Reviewed: Yes Review of Systems Review of Systems Constitutional: No chills, No dizziness; fever (Subjective), malaise EENTM: No Blurred Vision, No Ear Drainage, No Nose Congestion, No Throat Pain, No Throat Swelling Respiratory: Cough, Shortness of Air; Denies Stridor, Denies Wheezing Cardiovascular: See HPI Gastrointestinal: See HPI; Denies Abdominal Pain; Nausea (Chronic); Denies Vomiting Genitourinary: See HPI, Burning, Pain, Urgency Musculoskeletal: back pain (Left-sided chest pain radiating to her back and left arm); No joint swelling, No neck pain Skin: rash (Multiple sores on her body with some areas of induration and fluctuance) Psychiatric/Neurological: Anxiety Past Seyhajj-Jmzyzo-Cdyqzt Hx Past Med/Social Hx: Reviewed Nursing Past Med/Soc Hx Patient Social History Alcohol Use: Denies Use Drug of Choice: Marijuana, methamphetamine Smoking Status: Current Everyday Smoker Type Used: Cigarettes 2nd Hand Smoke Exposure: No Recent Infectious Disease Expo: No Recent Hopitalizations: No Immunizations Up To Date Date of Pneumonia Vaccine: Feb 18, 2013 Date of Influenza Vaccine: Mar 06, 2018 Seasonal Allergies Seasonal Allergies: No Past Medical History Surgeries: Yes Coronary Stent, Eye Surgery, Gallbladder, Hysterectomy, Tubal Ligation Respiratory: Yes Asthma, COPD Cardiac: No Heart Attack Neurological: Yes (psuedoseizure when really stressed out) Seizure Disorder 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 Sexually Transmitted Disease: No HIV/AIDS: Yes Genitourinary: No Gastrointestinal: No Musculoskeletal: Yes (patient reports herniated, bulging cervical discs) Arthritis Endocrine: Yes Diabetes, Insulin dep HEENT: No Eye Injury Loss of Vision: Left Cancer: No Psychosocial: Yes Anxiety, Depression Integumentary: No Blood Disorders: Yes (Hep C, HIV) Adverse Reaction/Blood Tranf: No Family Medical History Cardiovascular disease 19 FATHER 19 MOTHER Diabetes mellitus 19 FATHER FH: lung disease 19 MOTHER Heart Disease, Diabetes, Hypertension Physical Exam Vital Signs Vital Signs - First Documented 06/28/20 16:47 Temp 36.7 Pulse 94 Resp 18 B/P (MAP) 148/103 (118) Pulse Ox 98 O2 Delivery Room Air Capillary Refill : Less Than 3 Seconds Height, Weight, BMI Height: 5'5.00" Weight: 219lbs. 3.0oz. 99.761819qm; 36.00 BMI Method:Stated General Appearance: WD/WN, Chronically ill, Moderate Distress, Obese Neck: Supple Respiratory: Lungs Clear, Normal Breath Sounds, No Accessory Muscle Use, No Respiratory Distress, Other (Tender to palpation over the left upper anterior chest wall) Cardiovascular: Regular Rate, Rhythm, Normal Peripheral Pulses Gastrointestinal: Normal Bowel Sounds, No Pulsatile Mass, Non Tender, Soft Rectal: Deferred Extremity: Normal Capillary Refill, Other (CAM Walker boot on the right lower leg and ankle) Neurologic/Psychiatric: Alert, Oriented x3, administrative assistant coordinator II-XII Norm as Tested, Depressed Affect, Other (Anxious and tearful at times) Skin: Warm/Dry, Rash (Multiple areas of scarring and some areas of open sores on skin in multiple areas) Images 1 - Tender to palpation on anterior chest wall radiating to left arm and shoulder Progress/Results/Core Measures Results/Orders Lab Results Laboratory Tests Test 06/28/20 16:43 06/28/20 16:53 Range/Units White Blood Count 9.7 4.3-11.0 10^3/uL Red Blood Count 4.67 4.35-5.85 10^6/uL Hemoglobin 13.4 11.5-16.0 G/DL Hematocrit 40 35-52 % Mean Corpuscular Volume 86 80-99 FL Mean Corpuscular Hemoglobin 29 25-34 PG Mean Corpuscular Hemoglobin Concent 33 32-36 G/DL Red Cell Distribution Width 12.4 10.0-14.5 % Platelet Count 240 130-400 10^3/uL Mean Platelet Volume 11.2 H 7.4-10.4 FL Immature Granulocyte % (Auto) 0 % Neutrophils (%) (Auto) 49 42-75 % Lymphocytes (%) (Auto) 40 12-44 % Monocytes (%) (Auto) 7 0-12 % Eosinophils (%) (Auto) 2 0-10 % Basophils (%) (Auto) 1 0-10 % Neutrophils # (Auto) 4.8 1.8-7.8 X 10^3 Lymphocytes # (Auto) 3.9 1.0-4.0 X 10^3 Monocytes # (Auto) 0.7 0.0-1.0 X 10^3 Eosinophils # (Auto) 0.2 0.0-0.3 10^3/uL Basophils # (Auto) 0.1 0.0-0.1 10^3/uL Immature Granulocyte # (Auto) 0.0 0.0-0.1 10^3/uL Prothrombin Time 12.5 12.2-14.7 SEC INR Comment 0.9 0.8-1.4 Activated Partial Thromboplast Time 26 24-35 SEC Sodium Level 136 135-145 MMOL/L Potassium Level 4.0 3.6-5.0 MMOL/L Chloride Level 99 98-107 MMOL/L Carbon Dioxide Level 27 21-32 MMOL/L Anion Gap 10 5-14 MMOL/L Blood Urea Nitrogen 8 7-18 MG/DL Creatinine 0.50 L 0.60-1.30 MG/DL Estimat Glomerular Filtration Rate > 60 BUN/Creatinine Ratio 16 Glucose Level 228 H 70-105 MG/DL Calcium Level 9.5 8.5-10.1 MG/DL Corrected Calcium 9.4 8.5-10.1 MG/DL Magnesium Level 1.8 1.6-2.4 MG/DL Total Bilirubin 0.3 0.1-1.0 MG/DL Aspartate Amino Transf (AST/SGOT) 12 5-34 U/L Alanine Aminotransferase (ALT/SGPT) 10 0-55 U/L Alkaline Phosphatase 76 40-136 U/L Troponin I < 0.30 <0.30 NG/ML Pro-B-Type Natriuretic Peptide 68.8 <75.0 PG/ML Total Protein 7.3 6.4-8.2 GM/DL Albumin 4.1 3.2-4.5 GM/DL Lipase 25 8-78 U/L Urine Color YELLOW Urine Clarity SL CLOUDY Urine pH 7.0 5-9 Urine Specific [place] 1.01 1.016-1.022 Urine Protein NEGATIVE NEGATIVE Urine Glucose (UA) 1+ H NEGATIVE Urine Ketones NEGATIVE NEGATIVE Urine Nitrite NEGATIVE NEGATIVE Urine Bilirubin NEGATIVE NEGATIVE Urine Urobilinogen NORMAL < = 1.0 MG/DL Urine Leukocyte Esterase 3+ H NEGATIVE Urine RBC (Auto) TRACE-L NEGATIVE Urine RBC NONE /HPF Urine WBC 5-10 H /HPF Urine Squamous Epithelial Cells 0-2 /HPF Urine Crystals NONE /LPF Urine Bacteria FEW H /HPF Urine Casts NONE /LPF Urine Mucus NEGATIVE /LPF Urine Trichomonas FEW H /HPF Urine Culture Indicated YES Urine Opiates Screen NEGATIVE NEGATIVE Urine Oxycodone Screen NEGATIVE NEGATIVE Urine Methadone Screen NEGATIVE NEGATIVE Urine Propoxyphene Screen NEGATIVE NEGATIVE Urine Barbiturates Screen NEGATIVE NEGATIVE Ur Tricyclic Antidepressants Screen NEGATIVE NEGATIVE Urine Phencyclidine Screen NEGATIVE NEGATIVE Urine Amphetamines Screen NEGATIVE NEGATIVE Urine Methamphetamines Screen NEGATIVE NEGATIVE Urine Benzodiazepines Screen NEGATIVE NEGATIVE Urine Cocaine Screen NEGATIVE NEGATIVE Urine Cannabinoids Screen POSITIVE H NEGATIVE My Orders Orders - ELIZABETH ESTEVEZ MD Cbc With Automated Diff (06/28/20 16:37) Magnesium (06/28/20 16:37) Chest 1 View Ap/Pa Only (06/28/20 16:37) Ekg Tracing (06/28/20 16:37) Comprehensive Metabolic Panel (06/28/20 16:37) Protime With Inr (06/28/20 16:37) Partial Thromboplastin Time (06/28/20 16:37) O2 (06/28/20 16:37) Monitor-Rhythm Ecg Trace Only (06/28/20 16:37) Aspirin Chewable Tablet (Baby Aspirin Ch (06/28/20 16:45) Ed Iv/Invasive Line Start (06/28/20 16:37) Lipase (06/28/20 16:37) Troponin I Fs (06/28/20 16:37) Probnp Fs (06/28/20 16:37) Ua Culture If Indicated (06/28/20 16:48) Drug Screen Stat (Urine) (06/28/20 16:48) Lorazepam Injection (Ativan Injection) (06/28/20 17:23) Urine Culture (06/28/20 16:53) Vital Signs/I&O 06/28/20 06/28/20 06/28/20 16:47 18:17 18:18 Temp 36.7 36.7 Pulse 94 85 Resp 18 16 B/P (MAP) 148/103 (118) 144/83 Pulse Ox 98 98 O2 Delivery Room Air Room Air Room Air Blood Pressure Mean: 118 Progress Progress Note #1: Progress Note Obtain electrocardiogram, chest x-ray, labs, UA with urine drug screen. Patient had already been given aspirin by EMS. The electrocardiogram here did not demonstrate any acute ST elevation. Similar to prior tracings in the system. Progress Note #2: Progress Note Chest x-ray was clear without infiltrate or effusion. Her electrocardiogram did not demonstrate any acute ST elevation. Initial CBC was not showing elevated white count for an infection. Her exam and history was consistent with anxiety and chest wall pain. Ordered a dose of Ativan to try and help with her symptoms. Progress Note #3: Progress Note Chemistry and cardiac enzymes came back without elevation of her troponin. Her symptoms were improved with treatment in the ED. She was tearful and upset about the stress and anxiety of her upcoming court date, chronic health issues, dealing with pain from her fractured foot, cellulitis and concern for abscess with her skin condition, pain with urination. The urinalysis did demonstrate signs of UTI with 3+ leukocyte esterase and bacteria as well as having trichomonas. Her UDS only showed the marijuana that she admits to using. She states that she already has Bactrim so advised to take that to help treat for th e urine infection as well as the skin infection. Will order metronidazole or Flagyl to help for the trichomonas. Counseled to abstain from sex until her sexual partner or partners have been treated. Stressed that the emergency department does not provide medications for chronic conditions. I advised her that I could give a small amount of medicine to try and help for 2 or 3 days and she could potentially help stretch that out for more days but beyond that she would need to see her primary care physician or local providers for any additional medication in terms of pain and anxiety. Reassured patient that she did not have signs of acute coronary syndrome or myocardial infarction and heart attack with the negative troponin after having pain for the last 3 days especially having it over 6 hours today. Initial ECG Impression Date: Jun 28, 2020 Initial ECG Impression Time: 16:31 Initial ECG Rate: 83 Initial ECG Rhythm: Normal Sinus Initial ECG Comparisson: Unchanged Comment Normal sinus rhythm with a heart rate of 83 bpm. LA interval 167 ms. QT interval 373 ms with a QTc interval 464 ms. She has no acute ST elevation. This appears similar to prior tracings in the system. Diagnostic Imaging Diagonstic Imaging: Xray Plain Films/CT/US/NM/MRI: chest Comments [facility]. [place], [place] NAME: LINDSEY DE LA TORRE WangYou REC#: [id number] PT STATUS: REG ER : 1975 PHYSICIAN: ELIZABETH ESTEVEZ MD ADMIT DATE: 06/28/20/ER FS Signed Date of Exam:06/28/20 CHEST 1 VIEW AP/PA ONLY INDICATION: Chest pain. TECHNIQUE/COMPARISON: A frontal chest was obtained at 4:39 PM and compared to 09/04/2019. FINDINGS: The heart and mediastinal silhouette are normal in appearance. A faint nodular density overlying the right midlung appears similar to the prior study measuring about 1.6 cm. There is no consolidation, pneumothorax, or pleural fluid. IMPRESSION: No acute process in the chest. A faint nodular density overlying the right midlung is unchanged compared to the prior study. This was also stable compared to a CT chest of 07/19/2018. Dictated by: Dictated on workstation # [id number] Dict: 06/28/201650 Trans: 06/28/201657 [id number] Interpreted by: YAYO DAMON MD Electronically signed by: YAYO DAMON MD 06/28/201657 Reviewed: Reviewed by Me Departure Impression Primary Impression: Anxiety Additional Impressions: Trichomonal cystitis Cystitis without hematuria Cellulitis of multiple sites Non-cardiac chest pain Right foot pain Disposition: 01 HOME, SELF-CARE Condition: Improved Departure-Patient Inst. Decision time for Depature: 18:09 Referrals: SELFJOHN MD (PCP/Family) Primary Care Physician Patient Instructions: Anxiety, Adult ED, Cellulitis (Skin Infection), Adult ED, Chest Pain That Is Not Caused by the Heart (DC), Foot Fracture ED, Sexually Transmitted Diseases ED, Urinary Tract Infection, Adult ED Add. Discharge Instructions: Follow up with clinic for help with anxiety and pain with your foot For continued issues and concerns with your diabetes and chest pains see your doctor and you may want to see Cardiology for a check up since you have not seen them for a while. Your tests tonight have not shown any sign of a heart attack or damage tonight. Start taking the Bactrim sulfa antibiotic that you have already to treat the skin infection and urine infection. All discharge instructions reviewed with patient and/or family. Voiced understanding. Scripts Hydrocodone/Acetaminophen (Hydrocodone-Acetamin 5-325 mg) 1 Each Tablet 1 TAB PO Q6H PRN for PAIN-SEVERE (8-10) for 3 Days, #12 TAB 0 Refills Prov: ELIZABETH ESTEVEZ MD 06/28/20 Clonazepam (Clonazepam) 1 Mg Tablet 1 MG PO Q8H PRN for ANXIETY for 3 Days, #9 TAB 0 Refills Prov: ELIZABETH ESTEVEZ MD 06/28/20 Metronidazole (Metronidazole) 500 Mg Tablet 500 MG PO BID for trichomonas for 7 Days, #14 TAB 0 Refills Prov: ELIZABETH ESTEVEZ MD 06/28/20 ELIZABETH ESTEVEZ MD Jun 28, 2020 17:27
[2020-06-28 17:29] LABS: CHLORIDE 99 MMOL/L (98-107); SODIUM 136 MMOL/L (135-145)
[2020-06-28 17:44] LABS: BACTERIA,URINE FEW /HPF; BENZODIAZEPINES SCREEN URINE NEGATIVE (NEGATIVE); BILIRUBIN,URINE NEGATIVE (NEGATIVE); CLARITY,URINE SL CLOUDY; COLOR,URINE YELLOW; GLUCOSE, URINE (UA) 1+ (NEGATIVE); KETONES,URINE NEGATIVE (NEGATIVE); LEUKOCYTE ESTERASE ,URINE 3+ (NEGATIVE); NITRITE,URINE NEGATIVE (NEGATIVE); PROTEIN,URINE NEGATIVE (NEGATIVE); SQUAMOUS EPITHELIAL CELL,UR 0-2 /HPF; TRICHOMONAS,URINE FEW /HPF
[2020-06-28 17:45] LABS: AMPHETAMINE SCREEN, URINE NEGATIVE (NEGATIVE); BARBITURATE SCREEN URINE NEGATIVE (NEGATIVE); CANNABINOID SCREEN, URINE POSITIVE (NEGATIVE); COCAINE SCREEN URINE NEGATIVE (NEGATIVE); METHADONE STAT NEGATIVE (NEGATIVE); METHAMPHETAMINE SCREEN URINE S NEGATIVE (NEGATIVE); OPIATE SCREEN URINE NEGATIVE (NEGATIVE); OXYCODONE STAT NEGATIVE (NEGATIVE); PROPOXYPHENE STAT NEGATIVE (NEGATIVE); TRICYCLIC ANTIDEPRESSANTS SCRE NEGATIVE (NEGATIVE)
[2020-06-28 18:18] VITALS: BP 144/83
[2020-06-28] MEDS ORDERED: CLON1TAB13 PO (18:19)
[2020-06-28] MEDS ORDERED: ACHD5005 PO (18:19)
[2020-06-28] MEDS ORDERED: METR-145 PO (18:19)
== END 2020-06-28 18:22 | disposition home or self-care (01) ==
LOC: EDUNIT# 16:22 → ER FS 16:23
DX: F41.9 Anxiety disorder, unspecified (principal); A59.03 Trichomonal cystitis and urethritis; L03.818 Cellulitis of other sites; R07.89 Other chest pain; M79.671 Pain in right foot; F32.9 Major depressive disorder, single episode, unspecified; E66.9 Obesity, unspecified; J44.9 Chronic obstructive pulmonary disease, unspecified; I25.2 Old myocardial infarction; G40.909 Epilepsy, unspecified, not intractable, without status epilepticus; E11.9 Type 2 diabetes mellitus without complications; F17.210 Nicotine dependence, cigarettes, uncomplicated; Z95.5 Presence of coronary angioplasty implant and graft; Z68.36 Body mass index [BMI] 36.0-36.9, adult; Z88.5 Allergy status to narcotic agent; Z82.49 Family history of ischemic heart disease and other diseases of the circulatory system; Z80.1 Family history of malignant neoplasm of trachea, bronchus and lung; Z83.3 Family history of diabetes mellitus; Z79.82 Long term (current) use of aspirin; Z79.4 Long term (current) use of insulin
CPT/HCPCS: 36415; 71045; 80053; 80306; 81000; 83690; 83735; 83880; 84484; 85025; 85610; 85730; 87088; 93005; 93041

== ENCOUNTER 2020-07-28 17:23 | Emergency (ER) | payer BC ==
[~2020-07-28] VITALS: Ht 165 cm; Wt 89.0 kg
[~2020-07-28 17:23] MED LIST changes: +CLON1TAB13 PO; -LISI-556 PO; +LISI-729 PO; +METR-145 PO
[2020-07-28] MEDS ORDERED: ORPHENADRINE 60 MG/2 ML (NORFLEX) AMP (ED ONLY) IM STA (17:27)
--- NOTE | 2020-07-28 17:27 | ED Hip Pain/Injury ---
General Stated Complaint: HIP PAIN History of Present Illness Date Seen by Provider: Jul 28, 2020 Time Seen by Provider: 17:24 Initial Comments 45-year-old female presents with left buttock and left hip pain. Patient reports that she was at the grocery store when she turned funny "felt a pop" now has pain in her buttock and hip. Feels like something is grinding. She is able to ambulate in on her own weight. Forces happened to now 3 hours ago. She reports no other injuries. Allergies and Home Medications Allergies Coded Allergies: hydromorphone (Verified Allergy, Unknown, b/p and oxygen level drop, 09/16/18) tramadol (Verified Allergy, Unknown, ANAPHYLAXIS, 09/16/18) Uncoded Allergies: air casts (Allergy, Unknown, 11/28/17) Home Medications Albuterol Sulfate 1 Puff Puff, 2 PUFF IH Q4H PRN for SHORTNESS OF BREATH, (Reported) Aspirin 81 Mg Tablet.dr, 81 MG PO HS, (Reported) Atorvastatin Calcium 40 Mg Tablet, 40 MG PO HS, (Reported) Bupropion HCl 150 Mg Tablet.er, 150 MG PO BID, (Reported) Clonazepam 1 Mg Tablet, 1 MG PO Q8H PRN for ANXIETY Prescribed by: ELIZABETH ESTEVEZ on 06/28/20 1820 Clopidogrel Bisulfate 75 Mg Tablet, 75 MG PO HS, (Reported) Cyclobenzaprine HCl 10 Mg Tablet, 10 MG PO Q8H PRN for SPASMS Prescribed by: REBECCA GALARZA on 07/28/20 1742 Diclofenac Potassium 50 Mg Tablet, 50 MG PO TID Prescribed by: JAIME RUDOLPH on 02/17/19 1704 Diclofenac Sodium 75 Mg Tablet.dr, 75 MG PO BID Prescribed by: JUSTA CARDENAS on 10/02/19 2136 Dolutegravir Sodium 50 Mg Tablet, 50 MG PO HS, (Reported) Emtricitabine/Tenofov Alafenam 1 Each Tablet, 1 TAB PO HS, (Reported) Estradiol 2 Mg Tablet, 2 MG PO DAILY, (Reported) Furosemide 40 Mg Tablet, 40 MG PO DAILY, (Reported) Hydrocodone Bit/Acetaminophen 1 Each Tablet, 1 TAB PO TID PRN for PAIN-MODERATE, (Reported) Hydrocodone Bit/Acetaminophen 1 Ea Tablet, 1 EACH PO Q6H PRN for BREAK THRU FOOT PAIN Prescribed by: SABRINA FRANCO on 11/25/18 1723 Hydrocodone/Acetaminophen 1 Each Tablet, 1 TAB PO Q6H PRN for PAIN-SEVERE (8-10) Prescribed by: ELIZABETH ESTEVEZ on 06/28/20 182 Insulin Aspart 100 Unit/1 Ml Susp, PER INSULIN PUMP, (Reported) Lisinopril 5 Mg Tablet, 5 MG PO HS, (Reported) Lisinopril 2.5 Mg Tablet, 2.5 MG PO DAILY, (Reported) Metformin HCl 500 Mg Tab.er.24h, 1,000 MG PO BID, (Reported) TAKES 2 (500MG) TABLETS Metoprolol Tartrate 25 Mg Tablet, 25 MG PO BID, (Reported) Metronidazole 500 Mg Tablet, 500 MG PO BID Prescribed by: ELIZABETH ESTEVEZ on 06/28/20 181 Omeprazole 40 Mg Capsule.dr, 40 MG PO DAILY, (Reported) Ondansetron 8 Mg Tab.rapdis, 8 MG PO Q4H PRN for NAUSEA/VOMITING-1ST LINE, (Reported) Pregabalin 75 Mg Capsule, 75 MG PO DAILY, (Reported) Pregabalin 75 Mg Capsule, 150 MG PO HS, (Reported) TAKES 2 (75MG) CAPSULES Sucralfate 1 Gm Tablet, 1 GM PO ACHS PRN for INDIGESTION, (Reported) Sulfamethoxazole/Trimethoprim 1 Each Tablet, 1 EACH PO BID Prescribed by: MALLORIE LAWS on 03/08/19 1705 Patient Home Medication List Home Medication List Reviewed: Yes Review of Systems Constitutional: No chills, No fever EENTM: see HPI Respiratory: no symptoms reported Cardiovascular: no symptoms reported Gastrointestinal: no symptoms reported Genitourinary: no symptoms reported Musculoskeletal: see HPI Skin: other (Numerous diffuse skin sores) Past Ibzjtcd-Fewtjh-Wryzhv Hx Patient Social History Drug of Choice: Marijuana, methamphetamine Type Used: Cigarettes 2nd Hand Smoke Exposure: No Recent Hopitalizations: No Immunizations Up To Date Date of Pneumonia Vaccine: Feb 18, 2013 Date of Influenza Vaccine: Mar 06, 2018 Seasonal Allergies Seasonal Allergies: No Past Medical History Surgeries: Yes Coronary Stent, Eye Surgery, Gallbladder, Hysterectomy, Tubal Ligation Respiratory: Yes Asthma, COPD Cardiac: No Heart Attack Neurological: Yes (psuedoseizure when really stressed out) Seizure Disorder 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 Sexually Transmitted Disease: No HIV/AIDS: Yes Genitourinary: No Gastrointestinal: No Musculoskeletal: Yes (patient reports herniated, bulging cervical discs) Arthritis Endocrine: Yes Diabetes, Insulin dep HEENT: No Eye Injury Loss of Vision: Left Cancer: No Psychosocial: Yes Anxiety, Depression Integumentary: No Blood Disorders: Yes (Hep C, HIV) Adverse Reaction/Blood Tranf: No Family Medical History Cardiovascular disease 19 FATHER 19 MOTHER Diabetes mellitus 19 FATHER FH: lung disease 19 MOTHER Heart Disease, Diabetes, Hypertension Physical Exam Vital Signs Vital Signs - First Documented 07/28/20 17:28 Temp 36.0 Pulse 115 Resp 20 B/P (MAP) 116/98 (104) Pulse Ox 99 O2 Delivery Room Air Capillary Refill : Height, Weight, BMI Height: 5'5.00" Weight: 219lbs. 3.0oz. 99.731679vz; 36.00 BMI Method:Stated General Appearance: Mild Distress, Other Cardiovascular: Regular Rate, Rhythm, No Edema Respiratory: Lungs Clear, Normal Breath Sounds Extremity: Normal Capillary Refill, Other (Tenderness left low back, buttock and left hip) Neurologic/Psychiatric: Alert Skin: Other (Diffuse numerous skin sores consistent with picking) Progress/Results/Core Measures Results/Orders My Orders Orders - REBECCA GALARZA L DO Orphenadrine Inj (Ed Only) (Norflex Inje (07/28/20 17:27) Pelvis With Left Hip 2-3 View (07/28/20 17:27) Vital Signs/I&O 07/28/20 17:28 Temp 36.0 Pulse 115 Resp 20 B/P (MAP) 116/98 (104) Pulse Ox 99 O2 Delivery Room Air Progress Progress Note : Progress Note Patient with negative x-ray of the hip. Her symptoms and physical exam are much more consistent with a muscle strain. I will prescribe her muscle relaxant. Sh e should use warm moist heat, Tylenol ibuprofen. Follow-up with her primary care provider in 1 week if symptoms or not improving Diagnostic Imaging Diagonstic Imaging: Xray Plain Films/CT/US/NM/MRI: hip Comments [facility]. [place], [place] NAME: LINDSEY DE LA TORRE MED REC#: [id number] PT STATUS: REG ER : 1975 PHYSICIAN: REBECCA GALARZA DO ADMIT DATE: 07/28/20/ER FS Draft Date of Exam:07/28/20 PELVIS WITH LEFT HIP 2-3 VIEW INDICATION: Left hip pain. EXAMINATION: AP view of the pelvis and two views of the left hip. FINDINGS: There no fracture or dislocation. Joint spaces are well-maintained. Articular surfaces are smooth. IMPRESSION: Negative pelvis and left hip. Reviewed: Reviewed by Me, Reviewed/Discussed Departure Impression Primary Impression: Buttock sprain Qualified Codes: S73.192A - Other sprain of left hip, initial encounter Additional Impression: Strain of left hip Qualified Codes: S76.012A - Strain of muscle, fascia and tendon of left hip, initial encounter Disposition: 01 HOME, SELF-CARE Condition: Stable Departure-Patient Inst. Referrals: JOHN FARLEY MD (PCP/Family) Primary Care Physician Patient Instructions: Muscle Strain ED Add. Discharge Instructions: warm moist heat to affected area 4% topical lidocaine with menthol cream, gel or patch. use as directed on package 800 mg ibuprofen or 1000 mg tylenol every 8 hrs as needed. Scripts Cyclobenzaprine HCl (Cyclobenzaprine HCl) 10 Mg Tablet 10 MG PO Q8H PRN for SPASMS, #15 TAB 0 Refills Prov: REBECCA GALARZA DO 07/28/20 REBECCA GALARZA DO Jul 28, 2020 17:27
[2020-07-28 17:28] VITALS: BP 116/98
[2020-07-28] MEDS ORDERED: CYCL10TA9 PO (17:42)
--- NOTE | 2020-07-28 17:44 | Diagnostic Imaging Report ---
INDICATION: Left hip pain. EXAMINATION: AP view of the pelvis and two views of the left hip. FINDINGS: There no fracture or dislocation. Joint spaces are well-maintained. Articular surfaces are smooth. IMPRESSION: Negative pelvis and left hip. Dictated by: Dictated on workstation # [id number]
== END 2020-07-28 17:57 | disposition home or self-care (01) ==
LOC: EDUNIT# 17:23 → ER FS 17:23
DX: S33.9XXA Sprain of unspecified parts of lumbar spine and pelvis, initial encounter (principal); S76.012A Strain of muscle, fascia and tendon of left hip, initial encounter; E11.9 Type 2 diabetes mellitus without complications; J44.9 Chronic obstructive pulmonary disease, unspecified; G40.909 Epilepsy, unspecified, not intractable, without status epilepticus; F32.9 Major depressive disorder, single episode, unspecified; F41.9 Anxiety disorder, unspecified; Z95.5 Presence of coronary angioplasty implant and graft; Z88.5 Allergy status to narcotic agent; Z82.49 Family history of ischemic heart disease and other diseases of the circulatory system; Z79.82 Long term (current) use of aspirin; Z79.4 Long term (current) use of insulin; X50.1XXA Overexertion from prolonged static or awkward postures, initial encounter
CPT/HCPCS: 73502

== ENCOUNTER 2020-10-03 11:44 | Emergency (ER) | payer BC ==
[~2020-10-03 11:44] MED LIST changes: +CYCL10TA9 PO
[2020-10-03 11:47] VITALS: BP 141/87
[2020-10-03] MEDS ORDERED: LIDOCAINE/EPI 2% 1:100,00 (XYLOCAINE) 20 ML VIAL ONE (11:50)
[2020-10-03] MEDS ORDERED: SULF1TAB35 PO (12:15)
[2020-10-03] MEDS ORDERED: ACHD5005 PO (12:15)
--- NOTE | 2020-10-03 12:15 | ED Integumentary General ---
"General Chief Complaint: Skin/Wound Problems Stated Complaint: GROIN DISCOMFORT | BOILS History of Present Illness Date Seen by Provider: October 03, 2020 Time Seen by Provider: 12:09 Initial Comments Patient presenting to the emergency department for evaluation of 2 abscesses one located in the right labial region and the second on the right upper inner thigh. Patient has a history of HIV and diabetes and says that her blood sugars have been poorly controlled in the 300 range. She says that she gets abscesses quite frequently. She denies any fevers chills nausea vomiting or other systemic symptoms. She is in no obvious distress with normal vital signs. Allergies and Home Medications Allergies Coded Allergies: hydromorphone (Verified Allergy, Unknown, b/p and oxygen level drop, 09/16/18) tramadol (Verified Allergy, Unknown, ANAPHYLAXIS, 09/16/18) Uncoded Allergies: air casts (Allergy, Unknown, 11/28/17) Home Medications Albuterol Sulfate 1 Puff Puff, 2 PUFF IH Q4H PRN for SHORTNESS OF BREATH, (Reported) Aspirin 81 Mg Tablet.dr, 81 MG PO HS, (Reported) Atorvastatin Calcium 40 Mg Tablet, 40 MG PO HS, (Reported) Bupropion HCl 150 Mg Tablet.er, 150 MG PO BID, (Reported) Clonazepam 1 Mg Tablet, 1 MG PO Q8H PRN for ANXIETY Prescribed by: ELIZABETH ESTEVEZ on 06/28/20 1820 Clopidogrel Bisulfate 75 Mg Tablet, 75 MG PO HS, (Reported) Cyclobenzaprine HCl 10 Mg Tablet, 10 MG PO Q8H PRN for SPASMS Prescribed by: REBECCA GALARZA on 07/28/20 174 Diclofenac Potassium 50 Mg Tablet, 50 MG PO TID Prescribed by: JAIME RUDOLPH on 02/17/19 1704 Diclofenac Sodium 75 Mg Tablet.dr, 75 MG PO BID Prescribed by: JUSTA CARDENAS on 10/02/19 2136 Dolutegravir Sodium 50 Mg Tablet, 50 MG PO HS, (Reported) Emtricitabine/Tenofov Alafenam 1 Each Tablet, 1 TAB PO HS, (Reported) Estradiol 2 Mg Tablet, 2 MG PO DAILY, (Reported) Furosemide 40 Mg Tablet, 40 MG PO DAILY, (Reported) Hydrocodone Bit/Acetaminophen 1 Each Tablet, 1 TAB PO TID PRN for PAIN-MODERATE, (Reported) Hydrocodone Bit/Acetaminophen 1 Ea Tablet, 1 EACH PO Q6H PRN for BREAK THRU FOOT PAIN Prescribed by: SABRINA FRANCO on 11/25/18 1723 Hydrocodone/Acetaminophen 1 Each Tablet, 1 TAB PO Q6H PRN for PAIN-SEVERE (8-10) Prescribed by: ELIZABETH ESTEVEZ on 06/28/20 1820 Insulin Aspart 100 Unit/1 Ml Susp, PER INSULIN PUMP, (Reported) Lisinopril 5 Mg Tablet, 5 MG PO HS, (Reported) Lisinopril 2.5 Mg Tablet, 2.5 MG PO DAILY, (Reported) Metformin HCl 500 Mg Tab.er.24h, 1,000 MG PO BID, (Reported) TAKES 2 (500MG) TABLETS Metoprolol Tartrate 25 Mg Tablet, 25 MG PO BID, (Reported) Metronidazole 500 Mg Tablet, 500 MG PO BID Prescribed by: ELIZABETH ESTEVEZ on 06/28/20 181 Omeprazole 40 Mg Capsule.dr, 40 MG PO DAILY, (Reported) Ondansetron 8 Mg Tab.rapdis, 8 MG PO Q4H PRN for NAUSEA/VOMITING-1ST LINE, (Reported) Pregabalin 75 Mg Capsule, 75 MG PO DAILY, (Reported) Pregabalin 75 Mg Capsule, 150 MG PO HS, (Reported) TAKES 2 (75MG) CAPSULES Sucralfate 1 Gm Tablet, 1 GM PO ACHS PRN for INDIGESTION, (Reported) Sulfamethoxazole/Trimethoprim 1 Each Tablet, 1 EACH PO BID Prescribed by: MALLORIE LAWS on 03/08/19 1705 Patient Home Medication List Home Medication List Reviewed: Yes Review of Systems Review of Systems Constitutional: no symptoms reported Respiratory: no symptoms reported Cardiovascular: no symptoms reported Gastrointestinal: no symptoms reported Musculoskeletal: no symptoms reported Skin: lesions, lumps Psychiatric/Neurological: No Symptoms Reported All Other Systems Reviewed Negative Unless Noted: Yes Past Tldyxls-Yuasgu-Mbgyix Hx Patient Social History Alcohol Use: Denies Use Drug of Choice: Marijuana, methamphetamine Type Used: Cigarettes 2nd Hand Smoke Exposure: No Recent Hopitalizations: No Immunizations Up To Date Date of Pneumonia Vaccine: Feb 18, 2013 Date of Influenza Vaccine: Mar 06, 2018 Seasonal Allergies Seasonal Allergies: No Past Medical History Surgeries: Yes Coronary Stent, Eye Surgery, Gallbladder, Hysterectomy, Tubal Ligation Respiratory: Yes Asthma, COPD Cardiac: No Heart Attack Neurological: Yes (psuedoseizure when really stressed out) Seizure Disorder 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 Sexually Transmitted Disease: No HIV/AIDS: Yes Genitourinary: No Gastrointestinal: No Musculoskeletal: Yes (patient reports herniated, bulging cervical discs) Arthritis Endocrine: Yes Diabetes, Insulin dep HEENT: No Eye Injury Loss of Vision: Left Cancer: No Psychosocial: Yes Anxiety, Depression Integumentary: No Blood Disorders: Yes (Hep C, HIV) Adverse Reaction/Blood Tranf: No Family Medical History Cardiovascular disease 19 FATHER 19 MOTHER Diabetes mellitus 19 FATHER FH: lung disease 19 MOTHER Heart Disease, Diabetes, Hypertension Physical Exam Vital Signs Capillary Refill : General Appearance: WD/WN, no apparent distress HEENT: PERRL/EOMI Neck: supple Cardiovascular: regular rate, rhythm Respiratory: no respiratory distress Neurologic/Psychiatric: alert, oriented x 3 Skin: warm/dry, other (Approximate 4 x 4 centimeter abscess on the right labial region. Approximate 1 x 1 cm abscess on the right upper medial thigh) Procedures/Interventions I&D : Site: Right labia and right thigh Blade Size: 11 I & D Procedure: betadine prep, gauze wick placed Packing/Drain: Idoform 05/24 Progress Wounds prepped and draped in normal sterile fashion and approximately 4 cc of 1% lidocaine with epinephrine was used to anesthetize both wounds total. An approximate 3 cm incision was made on the labial abscess and a 1 cm incision was made on the thigh abscess. Approximate 10 cc purulence was expressed from the labial abscess and 3 cc of purulence expressed from the thigh abscess. Packing was placed in the labial abscess. No complications noted. Progress/Results/Core Measures Results/Orders My Orders Orders - ROXIE RIVERA DO Lidocaine/Epi 2% 1:100,000 (Xylocaine/Ep (10/03/20 11:50) Progress Progress Note : Progress Note Both abscesses were opened and drained and she will be placed on Bactrim for antibiotic prophylaxis and told to follow-up with primary care provider within 2 to 3 days for wound recheck and possible repacking and to come back to the ED sooner with worsening pain fevers vomiting or other general concerns. Patient aware and agreeable with plan and verbalized understanding of the above instructions. Departure Impression Primary Impression: Labial abscess Additional Impression: Thigh abscess Disposition: 01 HOME, SELF-CARE Condition: Stable Departure-Patient Inst. Referrals: SELF,JOHN STRATTON (PCP/Family) Primary Care Physician Patient Instructions: Abscess Incision and Drainage Scripts Hydrocodone/Acetaminophen (Hydrocodone-Acetamin 5-325 mg) 1 Each Tablet 1 TAB PO Q6H PRN for PAIN-MODERATE (5-7), #8 TAB Prov: ROXIE RIVERA DO 10/03/20 Sulfamethoxazole/Trimethoprim (Bactrim Ds Tablet) 1 Each Tablet 1 EACH PO BID for 7 Days, TAB Prov: ROXIE RIVERA DO 10/03/20 ROXIE RIVERA DO October 03, 2020 12:15"
== END 2020-10-03 12:28 | disposition home or self-care (01) ==
LOC: EDUNIT# 11:44 → ER FS 11:46
DX: N76.4 Abscess of vulva (principal); L02.415 Cutaneous abscess of right lower limb; E11.9 Type 2 diabetes mellitus without complications; J44.9 Chronic obstructive pulmonary disease, unspecified; F41.9 Anxiety disorder, unspecified; F32.9 Major depressive disorder, single episode, unspecified; G40.909 Epilepsy, unspecified, not intractable, without status epilepticus; Z79.4 Long term (current) use of insulin; Z79.899 Other long term (current) drug therapy; Z95.5 Presence of coronary angioplasty implant and graft; Z88.5 Allergy status to narcotic agent; Z21 Asymptomatic human immunodeficiency virus [HIV] infection status; Z79.82 Long term (current) use of aspirin
CPT/HCPCS: 99282

== ENCOUNTER 2020-10-24 20:22 | Emergency (ER) | payer BC ==
[~2020-10-24] VITALS: Ht 165.1 cm; Wt 90.7 kg
[~2020-10-24 20:22] MED LIST changes: +SULF1TAB35 PO
[2020-10-24] MEDS ORDERED: ASPIRIN 81 MG CHEW (CHILDREN'S ASA) PO ONE (20:30)
[2020-10-24] MEDS ORDERED: meTOprolol 5 MG/5 ML (LOPRESSOR) VIAL IV STA (20:36)
[2020-10-24] MEDS ORDERED: morphine INJ 10 MG/ML 1ML (SYR OR VIAL) IVP STA (20:36)
--- NOTE | 2020-10-24 20:47 | ED Chest Pain ---
General Chief Complaint: Chest Pain Stated Complaint: CHEST PAIN Source: patient, old records History of Present Illness Date Seen by Provider: Oct 24, 2020 Time Seen by Provider: 20:23 Initial Comments 45-year-old female presenting with complaints of pain in her left scapula that started around 6 AM. She states it is wrapped around her chest now and going into her left arm. She has a history of prior heart attack in 2018 that required stents. She has not been compliant with follow-up with cardiology. She has a history of HIV, diabetes, hepatitis C, coronary artery disease and medication noncompliance. She reports taking 4 aspirin 81 mg just 15 to 20 minutes prior to arriving in the ED. She has had anxiety that has felt like th is as well as her chest pain that is felt like this. She was unsure which this might be but was worried it might be her heart. She also has cervical disc and spine disease that sometimes gives her pain into her back and chest and did not know if that might be part of the pain as well. She denies any fever, chills, nausea or vomiting. She has had increased indigestion over the last few days. She complains of some headache as well. 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 NTG SL VOCAL ARTIST: No Associated Symptoms: No abdominal pain; back pain; No diaphoresis, No dizziness, No edema; fatigue; No fever/chills; headache, heartburn; No nausea/vomiting, No rash, No shortness of breath, No swelling/lump in chest, No syncope, No weakness Allergies and Home Medications Allergies Coded Allergies: hydromorphone (Verified Allergy, Unknown, b/p and oxygen level drop, 09/16/18) tramadol (Verified Allergy, Unknown, ANAPHYLAXIS, 09/16/18) Uncoded Allergies: air casts (Allergy, Unknown, 11/28/17) Home Medications Albuterol Sulfate 1 Puff Puff, 2 PUFF IH Q4H PRN for SHORTNESS OF BREATH, (Reported) Aspirin 81 Mg Tablet.dr, 81 MG PO HS, (Reported) Atorvastatin Calcium 40 Mg Tablet, 40 MG PO HS, (Reported) Bupropion HCl 150 Mg Tablet.er, 150 MG PO BID, (Reported) Clonazepam 1 Mg Tablet, 1 MG PO Q8H PRN for ANXIETY Prescribed by: ELIZABETH ESTEVEZ on 06/28/20 182 Clopidogrel Bisulfate 75 Mg Tablet, 75 MG PO HS, (Reported) Cyclobenzaprine HCl 10 Mg Tablet, 10 MG PO Q8H PRN for SPASMS Prescribed by: REBECCA GALARZA on 07/28/20 1742 Diclofenac Potassium 50 Mg Tablet, 50 MG PO TID Prescribed by: JAIME RUDOLPH on 02/17/19 1704 Diclofenac Sodium 75 Mg Tablet.dr, 75 MG PO BID Prescribed by: JUSTA CARDENAS on 10/02/19 2136 Dolutegravir Sodium 50 Mg Tablet, 50 MG PO HS, (Reported) Emtricitabine/Tenofov Alafenam 1 Each Tablet, 1 TAB PO HS, (Reported) Estradiol 2 Mg Tablet, 2 MG PO DAILY, (Reported) Furosemide 40 Mg Tablet, 40 MG PO DAILY, (Reported) Hydrocodone Bit/Acetaminophen 1 Each Tablet, 1 TAB PO TID PRN for PAIN-MODERATE, (Reported) Hydrocodone Bit/Acetaminophen 1 Ea Tablet, 1 EACH PO Q6H PRN for BREAK THRU FOOT PAIN Prescribed by: SABRINA FRANCO on 11/25/18 1723 Hydrocodone/Acetaminophen 1 Each Tablet, 1 TAB PO Q6H PRN for PAIN-SEVERE (8-10) Prescribed by: ELIZABETH ESTEVEZ on 06/28/20 182 Hydrocodone/Acetaminophen 1 Each Tablet, 1 TAB PO Q6H PRN for PAIN-MODERATE (5- 7) Prescribed by: ROXIE RIVERA on 10/03/20 1215 Insulin Aspart 100 Unit/1 Ml Susp, PER INSULIN PUMP, (Reported) Lisinopril 5 Mg Tablet, 5 MG PO HS, (Reported) Lisinopril 2.5 Mg Tablet, 2.5 MG PO DAILY, (Reported) Metformin HCl 500 Mg Tab.er.24h, 1,000 MG PO BID, (Reported) TAKES 2 (500MG) TABLETS Metoprolol Tartrate 25 Mg Tablet, 25 MG PO BID, (Reported) Metronidazole 500 Mg Tablet, 500 MG PO BID Prescribed by: ELIZABETH ESTEVEZ on 06/28/20 181 Omeprazole 40 Mg Capsule.dr, 40 MG PO DAILY, (Reported) Ondansetron 8 Mg Tab.rapdis, 8 MG PO Q4H PRN for NAUSEA/VOMITING-1ST LINE, (Reported) Pregabalin 75 Mg Capsule, 75 MG PO DAILY, (Reported) Pregabalin 75 Mg Capsule, 150 MG PO HS, (Reported) TAKES 2 (75MG) CAPSULES Sucralfate 1 Gm Tablet, 1 GM PO ACHS PRN for INDIGESTION, (Reported) Sulfamethoxazole/Trimethoprim 1 Each Tablet, 1 EACH PO BID Prescribed by: MALLORIE LAWS on 03/08/19 1705 Sulfamethoxazole/Trimethoprim 1 Each Tablet, 1 EACH PO BID Prescribed by: ROXIE RIVERA on 10/03/20 1215 Patient Home Medication List Home Medication List Reviewed: Yes Review of Systems Review of Systems Constitutional: see HPI; No chills, No fever EENTM: No Symptoms Reported Respiratory: No Symptoms Reported Cardiovascular: See HPI Gastrointestinal: See HPI Genitourinary: No Symptoms Reported Musculoskeletal: see HPI Skin: rash (multiple sores on body and extremities) Psychiatric/Neurological: Anxiety, Headache Hematologic/Lymphatic: Denies Blood Clots Past Ollcxho-Ehfujn-Qsyodv Hx Past Med/Social Hx: Reviewed Nursing Past Med/Soc Hx Patient Social History Drug of Choice: Marijuana, methamphetamine Type Used: Cigarettes 2nd Hand Smoke Exposure: No Recent Hopitalizations: No Immunizations Up To Date Date of Pneumonia Vaccine: Feb 18, 2013 Date of Influenza Vaccine: Mar 06, 2018 Seasonal Allergies Seasonal Allergies: No Past Medical History Surgeries: Yes Coronary Stent, Eye Surgery, Gallbladder, Hysterectomy, Tubal Ligation Respiratory: Yes Asthma, COPD Cardiac: Yes Heart Attack, High Cholesterol, Hypertension Neurological: Yes (psuedoseizure when really stressed out) Seizure Disorder 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 Sexually Transmitted Disease: No HIV/AIDS: Yes Genitourinary: No Gastrointestinal: No Musculoskeletal: Yes (patient reports herniated, bulging cervical discs) Arthritis Endocrine: Yes Diabetes, Insulin dep HEENT: No Eye Injury Loss of Vision: Left Cancer: No Psychosocial: Yes Anxiety, Depression Integumentary: No Blood Disorders: Yes (Hep C, HIV) Adverse Reaction/Blood Tranf: No Family Medical History Cardiovascular disease 19 FATHER 19 MOTHER Diabetes mellitus 19 FATHER FH: lung disease 19 MOTHER Heart Disease, Diabetes, Hypertension Physical Exam Vital Signs Vital Signs - First Documented Capillary Refill : Height, Weight, BMI Height: 5'5.00" Weight: 219lbs. 3.0oz. 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 Norm as Tested Skin: Warm/Dry, Rash (multiple sores on body and extremities in various stages of healing and scar tissue) Progress/Results/Core Measures Results/Orders Lab Results Laboratory Tests Test 10/24/20 21:00 Range/Units White Blood Count 9.7 4.3-11.0 10^3/uL Red Blood Count 4.64 4.35-5.85 10^6/uL Hemoglobin 13.5 11.5-16.0 G/DL Hematocrit 40 35-52 % Mean Corpuscular Volume 85 80-99 FL Mean Corpuscular Hemoglobin 29 25-34 PG Mean Corpuscular Hemoglobin Concent 34 32-36 G/DL Red Cell Distribution Width 12.9 10.0-14.5 % Platelet Count 289 130-400 10^3/uL Mean Platelet Volume 10.8 H 7.4-10.4 FL Immature Granulocyte % (Auto) 0 % Neutrophils (%) (Auto) 50 42-75 % Lymphocytes (%) (Auto) 41 12-44 % Monocytes (%) (Auto) 7 0-12 % Eosinophils (%) (Auto) 2 0-10 % Basophils (%) (Auto) 0 0-10 % Neutrophils # (Auto) 4.8 1.8-7.8 X 10^3 Lymphocytes # (Auto) 4.0 1.0-4.0 X 10^3 Monocytes # (Auto) 0.7 0.0-1.0 X 10^3 Eosinophils # (Auto) 0.2 0.0-0.3 10^3/uL Basophils # (Auto) 0.0 0.0-0.1 10^3/uL Immature Granulocyte # (Auto) 0.0 0.0-0.1 10^3/uL Prothrombin Time 12.3 12.2-14.7 SEC INR Comment 0.9 0.8-1.4 Activated Partial Thromboplast Time 24 24-35 SEC Sodium Level 134 L 135-145 MMOL/L Potassium Level 3.9 3.6-5.0 MMOL/L Chloride Level 95 L 98-107 MMOL/L Carbon Dioxide Level 28 21-32 MMOL/L Anion Gap 11 5-14 MMOL/L Blood Urea Nitrogen 7 7-18 MG/DL Creatinine 0.49 L 0.60-1.30 MG/DL Estimat Glomerular Filtration Rate > 60 BUN/Creatinine Ratio 14 Glucose Level 344 H 70-105 MG/DL Calcium Level 9.8 8.5-10.1 MG/DL Corrected Calcium 9.7 8.5-10.1 MG/DL Magnesium Level 1.8 1.6-2.4 MG/DL Total Bilirubin 0.3 0.1-1.0 MG/DL Aspartate Amino Transf (AST/SGOT) 10 5-34 U/L Alanine Aminotransferase (ALT/SGPT) 9 0-55 U/L Alkaline Phosphatase 83 40-136 U/L Troponin I < 0.30 <0.30 NG/ML Pro-B-Type Natriuretic Peptide 108.7 H <75.0 PG/ML Total Protein 7.0 6.4-8.2 GM/DL Albumin 4.1 3.2-4.5 GM/DL Lipase 37 8-78 U/L My Orders Orders - ELIZABETH ESTEVEZ MD Cbc With Automated Diff (10/24/20 20:29) Magnesium (10/24/20 20:29) Chest 1 View Ap/Pa Only (10/24/20:29) Ekg Tracing (10/24/20 20:29) Comprehensive Metabolic Panel (10/24/20 20:29) Protime With Inr (10/24/20 20:29) Partial Thromboplastin Time (10/24/20:29) O2 (10/24/20 20:29) Monitor-Rhythm Ecg Trace Only (10/24/20 20:29) Ed Iv/Invasive Line Start (10/24/20 20:29) Lipase (10/24/20 20:29) Troponin I Fs (10/24/20 20:29) Probnp Fs (10/24/20 20:29) Morphine Injection (Morphine Injection (10/24/20 21:09) Metoprolol Tartrate (Ir) Tab (Lopressor (10/24/20 21:09) Lidocaine 2% Viscous 15 Ml (Xylocaine Vi (10/24/20 21:45) Antacid Suspension (Mylanta Suspension (10/24/20 21:45) Rx-Hydrocodone/Apap 5-325 Mg (Rx-Vicodin (10/24/20 22:00) Medications Given in ED Current Medications Medications Dose Ordered Sig/Randy Route Start Time Stop Time Status Last Admin Dose Admin Acetaminophen/ Hydrocodone Bitart 1 ea Q8H PRN PO 10/24/20 22:00 10/24/20 22:00 DC 10/24/20 21:54 1 EA Al Hydrox/Mg Hydrox/Simethicone 30 ml ONCE ONCE PO 10/24/20 21:45 10/24/20 21:46 DC 10/24/20 21:53 30 ML Lidocaine HCl 15 ml ONCE ONCE PO 10/24/20 21:45 10/24/20 21:46 DC 10/24/20 21:53 15 ML Vital Signs/I&O 10/24/20 10/24/20 10/24/20 20:22 20:22 21:58 Temp 36.1 Pulse 91 79 Resp 24 17 B/P (MAP) 171/80 (110) 160/75 Pulse Ox 97 98 O2 Delivery Room Air Room Air Room Air Progress Progress Note #1: Progress Note Obtain labs as well as electrocardiogram and chest x-ray. Placed on cardiac lunchroom monitor. Give morphine and metoprolol to help with pain and blood pressure. Initial cardiac telemetry monitoring shows sinus rhythm without ST elevation. Her electrocardiogram shows sinus rhythm with Q waves and borderline ST elevation in the anterior leads. This appears similar to tracing from June 2020. After multiple attempts unable to obtain IV access on the patient. Blood was sent to the lab. Will change medications to IM for the morphine and oral for the metoprolol. Differential diagnosis includes cervical radiculopathy, myocardial infarction, chest wall pain, anxiety, GERD with esophageal spasms, hypertension, medication noncompliance Progress Note #2: Progress Note Chest x-ray appears clear other than chronic changes there was a nodule that had no uptake with a PET scan. The patient had already taken aspirin prior to coming to the ED so this was not repeated. CBC and coags appear stable without acute significant normality. Progress Note #3: Progress Note Chemistry did not show acute significant abnormality. Her troponin and BNP were not elevated. Her indigestion was acting up so she was given a GI cocktail. She requested a few pain pills for home to help for breakthrough pain so a 4 pack of hydrocodone was sent with the patient. Stressed importance of follow-up through the clinic and cardiology for continued concerns Initial ECG Impression Date: Oct 24, 2020 Initial ECG Impression Time: 20:26 Initial ECG Rate: 87 Initial ECG Rhythm: Normal Sinus Initial ECG Comparisson: Unchanged Comment Sinus rhythm with a heart rate of 87 bpm. FL interval 147 ms. QT interval 372 ms with a QTc interval 448 ms. She has inferior Q waves. She has borderline ST elevation in the anterior leads. This appears similar to tracing from June 2020 Diagnostic Imaging Diagonstic Imaging: Xray Plain Films/CT/US/NM/MRI: chest Comments NAME: LINDSEY DE LA TORRE [facility] REC#: [id number] PT STATUS: REG ER : 1975 PHYSICIAN: ELIZABETH ESTEVEZ MD ADMIT DATE: 10/24/20/ER FS Draft Date of Exam:10/24/20 CHEST 1 VIEW AP/PA ONLY EXAMINATION: Chest 1 view. HISTORY: Chest pain. COMPARISON: 06/28/2020. FINDINGS: The lungs are clear without edema or pneumonia. No pleural effusion or pneumothorax. Heart size is normal. There is a stable right mid zone nodule, shown to have no uptake on PET dated 08/20/2018. IMPRESSION: Clear lungs. Dictated on workstation # [id number] Dict: 10/24/202052 Trans: 10/24/202055 [id number] Interpreted by: TAISHA PAYNE MD Electronically signed by: Reviewed: Reviewed by Me Departure Impression Primary Impression: Left-sided chest pain Additional Impressions: Gastroesophageal reflux disease Qualified Codes: K21.00 - Gastro-esophageal reflux disease with esophagitis, without bleeding Anxiety Essential (primary) hypertension Disposition: 01 HOME, SELF-CARE Condition: Improved Departure-Patient Inst. Decision time for Depature: 21:52 Referrals: LEXI ISAACS MD FACP FACC CCDS Maksim VASQUEZ MD SELF,JOHN STRATTON (PCP/Family) Primary Care Physician Patient Instructions: Acid Reflux, Adult and Adolescent ED, Anxiety, Adult ED, Chest Pain, Adult ED Add. Discharge Instructions: Check back with clinic about your blood pressure and indigestion/reflux. They may want to adjust some of your medicines. Call Cardiology to arrange a follow up about your chest pains and history of heart attack with stent placement. All discharge instructions reviewed with patient and/or family. Voiced understanding. ELIZABETH ESTEVEZ MD Oct 24, 2020 20:47
--- NOTE | 2020-10-24 20:56 | Diagnostic Imaging Report ---
EXAMINATION: Chest 1 view. HISTORY: Chest pain. COMPARISON: 06/28/2020. FINDINGS: The lungs are clear without edema or pneumonia. No pleural effusion or pneumothorax. Heart size is normal. There is a stable right mid zone nodule, shown to have no uptake on PET dated 08/20/2018. IMPRESSION: Clear lungs. Dictated by: Dictated on workstation # [id number]
[2020-10-24] MEDS ORDERED: meTOprolol TARTRATE 25 MG (LOPRESSOR) TABLET PO STA (21:09)
[2020-10-24] MEDS ORDERED: morphine INJ 10 MG/ML 1ML (SYR OR VIAL) IM STA (21:09)
[2020-10-24 21:17] LABS: WHITE BLOOD COUNT 9.7 10^3/uL (4.3-11.0)
[2020-10-24 21:18] LABS: BASOPHILS % (AUTO) 0 % (0-10); EOSINOPHILS # (AUTO) 0.2 10^3/uL (0.0-0.3); EOSINOPHILS % (AUTO) 2 % (0-10); HEMATOCRIT 40 % (35-52); HEMOGLOBIN 13.5 G/DL (11.5-16.0); LYMPHOCYTES % (AUTO) 41 % (12-44); MEAN CORPUSCULAR HEMOGLOBIN 29 PG (25-34); MEAN CORPUSCULAR HGB CONC 34 G/DL (32-36); MEAN CORPUSCULAR VOLUME 85 FL (80-99); MEAN PLATELET VOLUME 10.8 FL (7.4-10.4); MONOCYTES # (AUTO) 0.7 X 10^3 (0.0-1.0); MONOCYTES % (AUTO) 7 % (0-12); NEUTROPHILS # (AUTO) 4.8 X 10^3 (1.8-7.8); NEUTROPHILS % (AUTO) 50 % (42-75); PLATELET COUNT 289 10^3/uL (130-400)
[2020-10-24 21:28] LABS: INR 0.9 (0.8-1.4); PROTHROMBIN TIME PATIENT 12.3 SEC (12.2-14.7)
[2020-10-24 21:37] LABS: ALANINE AMINOTRANSFERASE 9 U/L (0-55); ALBUMIN 4.1 GM/DL (3.2-4.5); ALKALINE PHOSPHATASE 83 U/L (40-136); BILIRUBIN,TOTAL 0.3 MG/DL (0.1-1.0); BUN/CREATININE RATIO 14; CALCIUM 9.8 MG/DL (8.5-10.1); CARBON DIOXIDE 28 MMOL/L (21-32); CHLORIDE 95 MMOL/L (98-107); CREATININE SERUM 0.49 MG/DL (0.60-1.30); GFR ESTIMATED > 60; GLUCOSE 344 MG/DL (70-105); MAGNESIUM 1.8 MG/DL (1.6-2.4); POTASSIUM 3.9 MMOL/L (3.6-5.0); SODIUM 134 MMOL/L (135-145)
[2020-10-24 21:38] LABS: LIPASE 37 U/L (8-78)
[2020-10-24] MEDS ORDERED: ANTACID SUSP 30 ML UDC (MYLANTA) PO ONE (21:45)
[2020-10-24] MEDS ORDERED: LIDOCAINE 2% VISCOUS 15 ML UDC PO ONE (21:45)
[2020-10-24 21:58] VITALS: BP 160/75
== END 2020-10-24 21:58 | disposition home or self-care (01) ==
LOC: EDUNIT# 20:22 → ER FS 20:24
DX: R07.9 Chest pain, unspecified (principal); K21.9 Gastro-esophageal reflux disease without esophagitis; F41.9 Anxiety disorder, unspecified; I10 Essential (primary) hypertension; E66.9 Obesity, unspecified; J44.9 Chronic obstructive pulmonary disease, unspecified; I25.2 Old myocardial infarction; E78.00 Pure hypercholesterolemia, unspecified; E11.9 Type 2 diabetes mellitus without complications; G40.909 Epilepsy, unspecified, not intractable, without status epilepticus; F32.9 Major depressive disorder, single episode, unspecified; Z88.5 Allergy status to narcotic agent; Z68.32 Body mass index [BMI] 32.0-32.9, adult; Z79.899 Other long term (current) drug therapy; Z79.82 Long term (current) use of aspirin; Z79.4 Long term (current) use of insulin
CPT/HCPCS: 36415; 71045; 80053; 83690; 83735; 83880; 84484; 85025; 85610; 85730; 93005; 93041

== ENCOUNTER 2020-12-07 10:09 | Emergency (ER) | payer BC ==
[~2020-12-07] VITALS: Ht 165.1 cm; Wt 94.4 kg
[~2020-12-07 10:09] MED LIST changes: -ARIP10TA17; +ARIP10TA55; -OMEP40CA27 PO; +OMEP40CA6 PO; -SULF1TAB35 PO; +SULF1TAB38 PO
[2020-12-07 10:22] VITALS: BP 129/91
[2020-12-07] MEDS ORDERED: oxyCODONE/APAP 5/325MG (PERCOCET 5) TABLET PO ONE (10:45)
--- NOTE | 2020-12-07 10:46 | ED Abdominal Pain ---
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 Patient has been evaluated for labial abscess and treated in this emergency department and last week by her PCP. She has completed a course of Bactrim and is still currently on clindamycin. Reports continued tenderness erythema and induration to this region. She denies nausea vomiting or sweats. She is not diabetic. No other acute symptoms or complaints. Timing/Duration: Other Severity/Quality: Dull Location: Other Radiation: Other Activities at Onset: Other Modifying Factors: Improves With Other Associated Symptoms: Other Allergies and Home Medications Allergies Coded Allergies: hydromorphone (Verified Allergy, Unknown, b/p and oxygen level drop, 09/16/18) tramadol (Verified Allergy, Unknown, ANAPHYLAXIS, 09/16/18) Uncoded Allergies: air casts (Allergy, Unknown, 11/28/17) Home Medications Albuterol Sulfate 1 Puff Puff, 2 PUFF IH Q4H PRN for SHORTNESS OF BREATH, (Reported) Aspirin 81 Mg Tablet.dr, 81 MG PO HS, (Reported) Atorvastatin Calcium 40 Mg Tablet, 40 MG PO HS, (Reported) Bupropion HCl 150 Mg Tablet.er, 150 MG PO BID, (Reported) Clonazepam 1 Mg Tablet, 1 MG PO Q8H PRN for ANXIETY Prescribed by: ELIZABETH ESTEVEZ on 06/28/20 1820 Clopidogrel Bisulfate 75 Mg Tablet, 75 MG PO HS, (Reported) Cyclobenzaprine HCl 10 Mg Tablet, 10 MG PO Q8H PRN for SPASMS Prescribed by: REBECCA GALARZA on 07/28/20 174 Diclofenac Potassium 50 Mg Tablet, 50 MG PO TID Prescribed by: JAIME RUDOLPH on 02/17/19 1704 Diclofenac Sodium 75 Mg Tablet.dr, 75 MG PO BID Prescribed by: JUSTA CARDENAS on 10/02/192135 Dolutegravir Sodium 50 Mg Tablet, 50 MG PO HS, (Reported) Emtricitabine/Tenofov Alafenam 1 Each Tablet, 1 TAB PO HS, (Reported) Estradiol 2 Mg Tablet, 2 MG PO DAILY, (Reported) Furosemide 40 Mg Tablet, 40 MG PO DAILY, (Reported) Hydrocodone Bit/Acetaminophen 1 Each Tablet, 1 TAB PO TID PRN for PAIN-MODERATE, (Reported) Hydrocodone Bit/Acetaminophen 1 Ea Tablet, 1 EACH PO Q6H PRN for BREAK THRU FOOT PAIN Prescribed by: SABRINA FRANCO on 11/25/18 1723 Hydrocodone/Acetaminophen 1 Each Tablet, 1 TAB PO Q6H PRN for PAIN-SEVERE (8-10) Prescribed by: ELIZABETH ESTEVEZ on 06/28/20 182 Hydrocodone/Acetaminophen 1 Each Tablet, 1 TAB PO Q6H PRN for PAIN-MODERATE (5- 7) Prescribed by: ROXIE RIVERA on 10/03/20 1215 Insulin Aspart 100 Unit/1 Ml Susp, PER INSULIN PUMP, (Reported) Lisinopril 5 Mg Tablet, 5 MG PO HS, (Reported) Lisinopril 2.5 Mg Tablet, 2.5 MG PO DAILY, (Reported) Metformin HCl 500 Mg Tab.er.24h, 1,000 MG PO BID, (Reported) TAKES 2 (500MG) TABLETS Metoprolol Tartrate 25 Mg Tablet, 25 MG PO BID, (Reported) Metronidazole 500 Mg Tablet, 500 MG PO BID Prescribed by: ELIZABETH ESTEVEZ on 06/28/20 181 Omeprazole 40 Mg Capsule.dr, 40 MG PO DAILY, (Reported) Ondansetron 8 Mg Tab.rapdis, 8 MG PO Q4H PRN for NAUSEA/VOMITING-1ST LINE, (Reported) Pregabalin 75 Mg Capsule, 75 MG PO DAILY, (Reported) Pregabalin 75 Mg Capsule, 150 MG PO HS, (Reported) TAKES 2 (75MG) CAPSULES Sucralfate 1 Gm Tablet, 1 GM PO ACHS PRN for INDIGESTION, (Reported) Sulfamethoxazole/Trimethoprim 1 Each Tablet, 1 EACH PO BID Prescribed by: MALLORIE LAWS on 03/08/19 170 Sulfamethoxazole/Trimethoprim 1 Each Tablet, 1 EACH PO BID Prescribed by: ROXIE RIVERA on 10/03/20 1215 Patient Home Medication List Home Medication List Reviewed: Yes Review of Systems Review of Systems Constitutional: see HPI EENTM: See HPI Respiratory: See HPI Cardiovascular: See HPI Gastrointestinal: See HPI Genitourinary: See HPI Musculoskeletal: see HPI Skin: see HPI Psychiatric/Neurological: Anxiety Past Aioobtl-Zobinl-Mzlitf Hx Patient Social History Tobacco Use?: No Seasonal Allergies Seasonal Allergies: No Past Medical History Surgeries: Yes Coronary Stent, Eye Surgery, Gallbladder, Hysterectomy, Tubal Ligation Respiratory: Yes Asthma, COPD Cardiac: Yes Heart Attack, High Cholesterol, Hypertension Neurological: Yes (psuedoseizure when really stressed out) Seizure Disorder 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 Sexually Transmitted Disease: No HIV/AIDS: Yes Genitourinary: No Gastrointestinal: No Musculoskeletal: Yes (patient reports herniated, bulging cervical discs) Arthritis Endocrine: Yes Diabetes, Insulin dep HEENT: No Eye Injury Loss of Vision: Left Cancer: No Psychosocial: Yes Anxiety, Depression Integumentary: No Blood Disorders: Yes (Hep C, HIV) Adverse Reaction/Blood Tranf: No Family Medical History Cardiovascular disease 19 FATHER 19 MOTHER Diabetes mellitus 19 FATHER FH: lung disease 19 MOTHER Heart Disease, Diabetes, Hypertension Physical Exam Vital Signs Vital Signs - First Documented 12/07/20 10:22 Temp 36.5 Pulse 92 Resp 16 B/P (MAP) 129/91 (104) Pulse Ox 98 O2 Delivery Room Air Capillary Refill : Height/Weight/BMI Height: 5'5.00" Weight: 219lbs. 3.0oz. 99.608969of; 33.00 BMI Method:Stated General Appearance: no apparent distress, other (Anxious) HEENT: PERRL/EOMI, normal ENT inspection Neck: non-tender Respiratory: lungs clear Cardiovascular: regular rate, rhythm Gastrointestinal: non tender, soft Pelvic: other ( tenderness erythema and induration of right labia no fluctuance or cellulitis involving the perineum) Skin: other Focused Exam Sepsis Stage: Ruled Out Progress/Results/Core Measures Results/Orders My Orders Orders - BRETT BRADEN DO Oxycodone/Apap 5/325mg Tablet (Percocet (12/07/20 10:45) Vital Signs/I&O 12/07/20 10:22 Temp 36.5 Pulse 92 Resp 16 B/P (MAP) 129/91 (104) Pulse Ox 98 O2 Delivery Room Air Departure Communication (Admissions) Patient with right labial soft tissue infection with possible early abscess. Recommendations are for pain medication continued clindamycin, topical antibiotics for treatment of MRSA and gynecological surgical follow-up. Patient agrees to follow-up plan. Impression Primary Impression: Infection of labia Disposition: HOME, SELF-CARE Condition: Stable Departure-Patient Inst. Decision time for Depature: 10:55 Referrals: REGINO LOCKETT MD (PCP/Family) Primary Care Physician Patient Instructions: Skin Abscess Add. Discharge Instructions: Please take pain medications as directed, continue oral antibiotics and apply Bactroban ointment to nostrils twice daily for the next week. Use chlorhexidine rinse in the bathtub on day 1 and day 7 and keep fingernails extra trim. Follow-up with your marketing automation specialist and gynecological surgeon for evaluation of labial infection in the next 2 days. All discharge instructions reviewed with patient and/or family. Voiced understanding. Scripts Oxycodone HCl/Acetaminophen (Percocet 5-325 mg Tablet) 1 Each Tablet 1 TAB PO Q4H for PAIN-MODERATE MDD 6 TABS for 7 Days, TAB Prov: BRETT BRADEN DO 12/07/20 Mupirocin (Mupirocin) 22 Gm Oint...g. 22 GM TP BID, #30 TUBE Prov: BRETT BRADEN DO 12/07/20 Chlorhexidine Gluconate (Hibiclens) 118 Ml Liquid 118 ML TP ONCE, #2 EA 2 Refills Prov: BRETT BRADEN DO 12/07/20 BRETT BRADEN DO Dec 07, 2020 10:45
[2020-12-07] MEDS ORDERED: CHLO118L TP (11:01)
[2020-12-07] MEDS ORDERED: OXYC1TAB87 PO ×4 (11:01→17:58)
[2020-12-07] MEDS ORDERED: MUPI22OI2 TP (11:01)
[2020-12-07] MEDS ORDERED: OXYC-200 PO (11:23)
== END 2020-12-07 11:25 | disposition home or self-care (01) ==
LOC: EDUNIT# 10:09 → ER FS 10:11
DX: N76.2 Acute vulvitis (principal); J44.9 Chronic obstructive pulmonary disease, unspecified; I25.2 Old myocardial infarction; I10 Essential (primary) hypertension; E78.00 Pure hypercholesterolemia, unspecified; E11.9 Type 2 diabetes mellitus without complications; F41.9 Anxiety disorder, unspecified; F32.9 Major depressive disorder, single episode, unspecified; G40.909 Epilepsy, unspecified, not intractable, without status epilepticus; Z79.899 Other long term (current) drug therapy; Z79.4 Long term (current) use of insulin; Z79.01 Long term (current) use of anticoagulants
CPT/HCPCS: 99283

== ENCOUNTER 2020-12-07 17:02 | Emergency (ER) | payer BC ==
[~2020-12-07] VITALS: Ht 165.1 cm; Wt 94.3 kg
[~2020-12-07 17:02] MED LIST changes: +CHLO118L TP; +MUPI22OI2 TP; +OXYC-200 PO; +OXYC1TAB87 PO
[2020-12-07 17:34] VITALS: BP 131/82
--- NOTE | 2020-12-07 17:54 | ED General ---
General Chief Complaint: General Problems/Pain Stated Complaint: VAGINAL ABSCESS Source of Information: Patient History of Present Illness Date Seen by Provider: Dec 07, 2020 Time Seen by Provider: 17:30 Initial Comments Patient was evaluated in this emergency department several hours ago by this provider for a right labial soft tissue infection. She was prescribed pain medication that she was unable to fill due to lack of availability at the local pharmacy. Due to recent change in state prescription law, physical prescription is for narcotic is unable to be provided at this time. The pharmacy [facility] and is unable or unwilling to transfer the current prescription to a new pharmacy. As such, the patient was instructed to return to the ED so a new electronic prescription can be issued. No other symptoms or complaints. Timing/Duration: Other Modifying Factors: improves with Other Allergies and Home Medications Allergies Coded Allergies: hydromorphone (Verified Allergy, Unknown, b/p and oxygen level drop, 09/16/18) tramadol (Verified Allergy, Unknown, ANAPHYLAXIS, 09/16/18) Uncoded Allergies: air casts (Allergy, Unknown, 11/28/17) Home Medications Albuterol Sulfate 1 Puff Puff, 2 PUFF IH Q4H PRN for SHORTNESS OF BREATH, (Reported) Aspirin 81 Mg Tablet.dr, 81 MG PO HS, (Reported) Atorvastatin Calcium 40 Mg Tablet, 40 MG PO HS, (Reported) Bupropion HCl 150 Mg Tablet.er, 150 MG PO BID, (Reported) Chlorhexidine Gluconate 118 Ml Liquid, 118 ML TP ONCE Prescribed by: BRETT BRADEN on 12/07/20 1101 Clonazepam 1 Mg Tablet, 1 MG PO Q8H PRN for ANXIETY Prescribed by: ELIZABETH ESTEVEZ on 06/28/20 1820 Clopidogrel Bisulfate 75 Mg Tablet, 75 MG PO HS, (Reported) Cyclobenzaprine HCl 10 Mg Tablet, 10 MG PO Q8H PRN for SPASMS Prescribed by: REBECCA GALARZA on 07/28/20 174 Diclofenac Potassium 50 Mg Tablet, 50 MG PO TID Prescribed by: JAIME RUDOLPH on 02/17/19 1704 Diclofenac Sodium 75 Mg Tablet.dr, 75 MG PO BID Prescribed by: JUSTA CARDENAS on 10/02/19 2136 Dolutegravir Sodium 50 Mg Tablet, 50 MG PO HS, (Reported) Emtricitabine/Tenofov Alafenam 1 Each Tablet, 1 TAB PO HS, (Reported) Estradiol 2 Mg Tablet, 2 MG PO DAILY, (Reported) Furosemide 40 Mg Tablet, 40 MG PO DAILY, (Reported) Hydrocodone Bit/Acetaminophen 1 Each Tablet, 1 TAB PO TID PRN for PAIN-MODERATE, (Reported) Hydrocodone Bit/Acetaminophen 1 Ea Tablet, 1 EACH PO Q6H PRN for BREAK THRU FOOT PAIN Prescribed by: SABRINA FRANCO on 11/25/18 1723 Hydrocodone/Acetaminophen 1 Each Tablet, 1 TAB PO Q6H PRN for PAIN-SEVERE (8-10) Prescribed by: ELIZABETH ESTEVEZ on 06/28/20 1820 Hydrocodone/Acetaminophen 1 Each Tablet, 1 TAB PO Q6H PRN for PAIN-MODERATE (5- 7) Prescribed by: ROXIE RIVERA on 10/03/20 1215 Insulin Aspart 100 Unit/1 Ml Susp, PER INSULIN PUMP, (Reported) Lisinopril 5 Mg Tablet, 5 MG PO HS, (Reported) Lisinopril 2.5 Mg Tablet, 2.5 MG PO DAILY, (Reported) Metformin HCl 500 Mg Tab.er.24h, 1,000 MG PO BID, (Reported) TAKES 2 (500MG) TABLETS Metoprolol Tartrate 25 Mg Tablet, 25 MG PO BID, (Reported) Metronidazole 500 Mg Tablet, 500 MG PO BID Prescribed by: ELIZABETH ESTEVEZ on 06/28/20 181 Mupirocin 22 Gm Oint...g., 22 GM TP BID Prescribed by: BRETT BRADEN on 12/07/20 1101 Omeprazole 40 Mg Capsule.dr, 40 MG PO DAILY, (Reported) Ondansetron 8 Mg Tab.rapdis, 8 MG PO Q4H PRN for NAUSEA/VOMITING-1ST LINE, ( Reported) Pregabalin 75 Mg Capsule, 75 MG PO DAILY, (Reported) Pregabalin 75 Mg Capsule, 150 MG PO HS, (Reported) TAKES 2 (75MG) CAPSULES Sucralfate 1 Gm Tablet, 1 GM PO ACHS PRN for INDIGESTION, (Reported) Sulfamethoxazole/Trimethoprim 1 Each Tablet, 1 EACH PO BID Prescribed by: MALLORIE LAWS on 03/08/19 1705 Sulfamethoxazole/Trimethoprim 1 Each Tablet, 1 EACH PO BID Prescribed by: ROXIE RIVERA on 10/03/20 1215 Patient Home Medication List Home Medication List Reviewed: Yes Review of Systems Review of Systems Constitutional: other Past Srxbgxv-Gaddop-Xlppcm Hx Seasonal Allergies Seasonal Allergies: No Past Medical History Surgeries: Yes Coronary Stent, Eye Surgery, Gallbladder, Hysterectomy, Tubal Ligation Respiratory: Yes Asthma, COPD Cardiac: Yes Heart Attack, High Cholesterol, Hypertension Neurological: Yes (psuedoseizure when really stressed out) Seizure Disorder 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 Sexually Transmitted Disease: No HIV/AIDS: Yes Genitourinary: No Gastrointestinal: No Musculoskeletal: Yes (patient reports herniated, bulging cervical discs) Arthritis Endocrine: Yes Diabetes, Insulin dep HEENT: No Eye Injury Loss of Vision: Left Cancer: No Psychosocial: Yes Anxiety, Depression Integumentary: No Blood Disorders: Yes (Hep C, HIV) Adverse Reaction/Blood Tranf: No Family Medical History Cardiovascular disease 19 FATHER 19 MOTHER Diabetes mellitus 19 FATHER FH: lung disease 19 MOTHER Heart Disease, Diabetes, Hypertension Physical Exam Vital Signs Vital Signs - First Documented 12/07/20 17:34 Temp 36.7 Pulse 78 Resp 16 B/P (MAP) 131/82 (98) Pulse Ox 98 O2 Delivery Room Air Capillary Refill : Height, Weight, BMI Height: 5'5.00" Weight: 219lbs. 3.0oz. 99.915454kt; 34.00 BMI Method:Stated General Appearance: Anxious, Other Progress/Results/Core Measures Suspected Sepsis SIRS Temperature: Pulse: Respiratory Rate: Blood Pressure / Mean: Results/Orders Vital Signs/I&O 12/07/20 17:34 Temp 36.7 Pulse 78 Resp 16 B/P (MAP) 131/82 (98) Pulse Ox 98 O2 Delivery Room Air Capillary Refill : Departure Communication (Admissions) This evaluation and exam is for the purposes of prescription medication replacement. Please see previous note from today regarding medical symptoms. Impression Primary Impression: Prescription refill Disposition: 01 HOME, SELF-CARE Condition: Stable Departure-Patient Inst. Decision time for Depature: 17:53 Referrals: REGINO LOCKETT MD (PCP/Family) Primary Care Physician Add. Discharge Instructions: Please fill your prescription medication upon leaving the emergency department. All discharge instructions reviewed with patient and/or family. Voiced understanding. Scripts Oxycodone HCl/Acetaminophen (Percocet 5-325 mg Tablet) 1 Each Tablet 1 TAB PO Q4H for PAIN-MODERATE MDD 6 TABS for 7 Days, #10 TAB Prov: BRETT BRADEN DO 12/07/20 BRETT BRADEN DO Dec 07, 2020 17:54
[2020-12-07] MEDS ORDERED: OXYC1TAB87 PO (17:58)
== END 2020-12-07 18:06 | disposition home or self-care (01) ==
LOC: EDUNIT# 17:02 → ER FS 17:03
DX: Z76.0 Encounter for issue of repeat prescription (principal); J44.9 Chronic obstructive pulmonary disease, unspecified; I25.2 Old myocardial infarction; I10 Essential (primary) hypertension; G40.909 Epilepsy, unspecified, not intractable, without status epilepticus; E11.9 Type 2 diabetes mellitus without complications; F32.9 Major depressive disorder, single episode, unspecified; E78.00 Pure hypercholesterolemia, unspecified; F41.9 Anxiety disorder, unspecified; Z79.4 Long term (current) use of insulin; Z79.899 Other long term (current) drug therapy; Z79.82 Long term (current) use of aspirin
CPT/HCPCS: 99281

== ENCOUNTER 2021-01-21 10:36 | Outpatient (CLI) | payer BC ==
[~2021-01-21] VITALS: Ht 160 cm; Wt 84.4 kg
[2021-01-21 10:32] VITALS: BP 156/91
[2021-01-21] MEDS ORDERED: diphenhydrAMINE 50 MG/ML INJ (BENADRYL) IV PRN (10:45)
[2021-01-21] MEDS ORDERED: EPINEPHrine INJECTION 1 MG/ML AMP IM PRN (10:45)
[2021-01-21] MEDS ORDERED: ACETAMINOPHEN 500 MG TAB (TYLENOL) PO PRN (10:45)
[2021-01-21] MEDS ORDERED: CASIRIVIMAB/IMDEVIMAB 1,200 MG in NS (IVPB) 250 ML IV ONE (10:45)
[2021-01-21] MEDS ORDERED: ONDANSETRON 4 MG/2 ML (SDV) Z0FRAN IV PRN (10:45)
== END 2021-01-21 12:20 | disposition home or self-care (01) ==
LOC: INFUSION 10:36
PROVIDERS: ATTEND Family Medicine
DX: Z23 Encounter for immunization (principal); U07.1 COVID-19

== ENCOUNTER 2021-02-06 13:36 | Emergency (ER) | payer BC ==
[~2021-02-06] VITALS: Ht 160 cm; Wt 86.0 kg
[2021-02-06] MEDS ORDERED: KETOROLAC 60 MG/2 ML VIAL IM STA (14:50)
[2021-02-06] MEDS ORDERED: ONDANSETRON 4 MG (ZOFRAN) ORAL DISSOLVE TAB PO STA (14:50)
[2021-02-06] MEDS ORDERED: fentaNYL INJ 100 MCG/2 ML AMP IM STA (14:50)
[2021-02-06] MEDS ORDERED: LORazepam INJ 2 MG/ML (ATIVAN) VIAL IM STA (14:50)
--- NOTE | 2021-02-06 14:54 | ED Abdominal Pain ---
General Chief Complaint: Abdominal/GI Problems Stated Complaint: ABD PAIN Source of Information: Patient, Old Records History of Present Illness Date Seen by Provider: Feb 06, 2021 Time Seen by Provider: 14:33 Initial Comments 45-year-old female presenting with complaints of severe epigastric pain and nausea since last night. She states she had eaten a burrito with cheese and sour cream as well as a grilled cheese sandwich. After that she was having pain that persisted all night. She felt like she needed to throw up but could not. She had some loose stools as well. She denies any fever or chills. She is intermittently writhing on the bed and grabbing her upper abdomen. She states she does have a history of ulcers and is supposed to be taking Prevacid for that. She has a history of pancreatitis but thinks it feels different than when she had that previously. Severity/Quality: Severe, Sharp, Stabbing Location: Epigastric Radiation: Back Modifying Factors: Worsens With Eating Associated Symptoms: No Chest Pain, No Diaphoresis, No Fever/Chills, No Headache; Heartburn, Nausea/Vomiting (Nauseated but unable to vomit), Rash (Multiple sores on her body from where it looks like she has been picking at her skin); No Shortness of Air, No Swelling/Mass in Abdomen, No Syncope Allergies and Home Medications Allergies Coded Allergies: hydromorphone (Verified Allergy, Unknown, b/p and oxygen level drop, 09/16/18) tramadol (Verified Allergy, Unknown, ANAPHYLAXIS, 09/16/18) Uncoded Allergies: air casts (Allergy, Unknown, 11/28/17) Patient Home Medication List Home Medication List Reviewed: Yes Albuterol Sulfate (Proair Hfa) 1 Puff Puff, 2 PUFF IH Q4H PRN for SHORTNESS OF BREATH, (Reported) Entered as Reported by: ANNEMARIE ROGERS on 06/28/18 1022 Aspirin (Aspirin EC) 81 Mg Tablet.dr, 81 MG PO HS, (Reported) Entered as Reported by: ANNEMARIE ROGERS on 06/28/18 1001 Atorvastatin Calcium (Atorvastatin Calcium) 40 Mg Tablet, 40 MG PO HS, (Reported) Entered as Reported by: ANNEMARIE ROGERS on 09/17/18 0914 Bupropion HCl (Bupropion HCl Sr) 150 Mg Tablet.er, 150 MG PO BID, (Reported) Entered as Reported by: CAMILA MARTÍNEZ on 07/19/18 1504 Chlorhexidine Gluconate (Hibiclens) 118 Ml Liquid, 118 ML TP ONCE Prescribed by: BRETT BRADEN on 12/07/20 1101 Clonazepam (Clonazepam) 1 Mg Tablet, 1 MG PO Q8H PRN for ANXIETY Prescribed by: ELIZABETH ESTEVEZ on 06/28/20 1820 Clopidogrel Bisulfate (Clopidogrel) 75 Mg Tablet, 75 MG PO HS, (Reported) Entered as Reported by: ANNEMARIE ROGERS on 06/28/18 1001 Cyclobenzaprine HCl (Cyclobenzaprine HCl) 10 Mg Tablet, 10 MG PO Q8H PRN for SPASMS Prescribed by: REBECCA GALARZA on 07/28/20 1742 Diclofenac Potassium (Diclofenac Potassium) 50 Mg Tablet, 50 MG PO TID Prescribed by: JAIME RUDOLPH on 02/17/19 1704 Diclofenac Sodium (Diclofenac Sodium) 75 Mg Tablet.dr, 75 MG PO BID Prescribed by: JUSTA CARDENAS on 10/02/19 2136 Dicyclomine HCl (Dicyclomine HCl) 20 Mg Tablet, 20 MG PO QID PRN for abdominal pain/cramping Prescribed by: ELIZABETH ESTEVEZ on 02/06/21 1707 Dolutegravir Sodium (Tivicay) 50 Mg Tablet, 50 MG PO HS, (Reported) Entered as Reported by: CAMILA MARTÍNEZ on 07/19/18 1504 Emtricitabine/Tenofov Alafenam (Descovy 200-25 mg Tablet) 1 Each Tablet, 1 TAB PO HS, (Reported) Entered as Reported by: CAMILA MARTÍNEZ on 07/19/18 1504 Estradiol (Estradiol Tablet) 2 Mg Tablet, 2 MG PO DAILY, (Reported) Entered as Reported by: CAMILA MARTÍNEZ on 07/19/18 1504 Furosemide (Furosemide) 40 Mg Tablet, 40 MG PO DAILY, (Reported) Entered as Reported by: CAMILA MARTÍNEZ on 07/19/18 1504 Hydrocodone Bit/Acetaminophen (HYDROcodone/APAP 10/325 TABLET) 1 Each Tablet, 1 TAB PO TID PRN for PAIN-MODERATE, (Reported) Entered as Reported by: ANNEMARIE ROGERS on 09/17/18 0914 Hydrocodone Bit/Acetaminophen (Lortab 7.5 Mg Tablet) 1 Ea Tablet, 1 EACH PO Q6H PRN for BREAK THRU FOOT PAIN Prescribed by: SABRINA FRANCO on 11/25/18 1723 Hydrocodone/Acetaminophen (Hydrocodone-Acetamin 5-325 mg) 1 Each Tablet, 1 TAB PO Q6H PRN for PAIN-SEVERE (8-10) Prescribed by: ELIZABETH ESTEVEZ on 06/28/20 1820 Hydrocodone/Acetaminophen (Hydrocodone-Acetamin 5-325 mg) 1 Each Tablet, 1 TAB PO Q6H PRN for PAIN-MODERATE (5-7) Prescribed by: ROXIE RIVERA on 10/03/20 1215 Hydrocodone/Acetaminophen (Hydrocodone-Acetamin 10-325 mg) 1 Each Tablet, 1 EACH PO Q8H PRN for PAIN-SEVERE (8-10) Prescribed by: ELIZABETH ESTEVEZ on 02/06/21 1708 Insulin Aspart (Novolog) 100 Unit/1 Ml Susp, PER INSULIN PUMP, (Reported) Entered as Reported by: CAMILA MARTÍNEZ on 07/19/18 1504 Lisinopril (Lisinopril) 5 Mg Tablet, 5 MG PO HS, (Reported) Entered as Reported by: CAMILA MARTÍNEZ on 07/19/18 1504 Lisinopril (Lisinopril) 2.5 Mg Tablet, 2.5 MG PO DAILY, (Reported) Entered as Reported by: ANNEMARIE ROGERS on 09/17/18 0914 Metformin HCl (Metformin HCl ER) 500 Mg Tab.er.24h, 1,000 MG PO BID, (Reported) Entered as Reported by: CAMILA MARTÍNEZ on 07/19/18 1504 Metoprolol Tartrate (Metoprolol Tartrate) 25 Mg Tablet, 25 MG PO BID, (Reported) Entered as Reported by: CAMILA MARTÍNEZ on 07/19/18 1504 Metronidazole (Metronidazole) 500 Mg Tablet, 500 MG PO BID Prescribed by: ELIZABETH ESTEVEZ on 06/28/20 1819 Mupirocin (Mupirocin) 22 Gm Oint...g., 22 GM TP BID Prescribed by: BRETT BRADEN on 12/07/20 1101 Omeprazole (Omeprazole) 40 Mg Capsule.dr, 40 MG PO DAILY, (Reported) Entered as Reported by: ANNEMARIE ROGERS on 09/17/18913 Ondansetron (Ondansetron Odt) 8 Mg Tab.rapdis, 8 MG PO Q4H PRN for NAUSEA/VOMITING-1ST LINE, (Reported) Entered as Reported by: ANNEMARIE ROGERS on 09/17/18913 Ondansetron (Ondansetron Odt) 4 Mg Tab.rapdis, 4 MG PO Q6H PRN for NAUSEA/VOMITING Prescribed by: ELIZABETH ESTEVEZ on 02/06/21 170 Oxycodone HCl/Acetaminophen (Percocet 5-325 mg Tablet) 1 Each Tablet, 1 TAB PO Q4H Prescribed by: BRETT BRADEN on 12/07/202208 Oxycodone HCl/Acetaminophen (Percocet 5-325 mg Tablet) 1 Each Tablet, 1 TAB PO Q4H Prescribed by: BRETT BRADEN on 12/07/202208 Oxycodone HCl/Acetaminophen (Percocet 5-325 mg Tablet) 1 Each Tablet, 1 TAB PO Q4H Prescribed by: BRETT BRADEN on 12/07/20 175 Pregabalin (Lyrica) 75 Mg Capsule, 75 MG PO DAILY, (Reported) Entered as Reported by: CAMILA MARTÍNEZ on 07/19/18 1504 Pregabalin (Lyrica) 75 Mg Capsule, 150 MG PO HS, (Reported) Entered as Reported by: ANNEMARIE ROGERS on 09/17/18913 Sucralfate (Sucralfate) 1 Gm Tablet, 1 GM PO ACHS PRN for INDIGESTION, (Reported) Entered as Reported by: ANNEMARIE ROGERS on 09/17/18913 Sulfamethoxazole/Trimethoprim (Sulfamethoxazole-Tmp Ds Tablet) 1 Each Tablet, 1 EACH PO BID Prescribed by: MALLORIE LAWS on 03/08/19 170 Sulfamethoxazole/Trimethoprim (Bactrim Ds Tablet) 1 Each Tablet, 1 EACH PO BID Prescribed by: ROXIE RIVERA on 10/03/20 1215 Review of Systems Review of Systems Constitutional: No chills, No fever EENTM: No Symptoms Reported Respiratory: No Symptoms Reported Cardiovascular: No Symptoms Reported Gastrointestinal: See HPI Genitourinary: Denies Burning, Denies Discharge, Denies Frequency Musculoskeletal: no symptoms reported Skin: No rash Psychiatric/Neurological: Anxiety Past Mbrerif-Nuwpuy-Hnvmiv Hx Seasonal Allergies Seasonal Allergies: No Past Medical History Surgeries: Yes Coronary Stent, Eye Surgery, Gallbladder, Hysterectomy, Tubal Ligation Respiratory: Yes Asthma, COPD Cardiac: Yes Heart Attack, High Cholesterol, Hypertension Neurological: Yes (psuedoseizure when really stressed out) Seizure Disorder 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 Disorders: Yes 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 Sexually Transmitted Disease: No HIV/AIDS: Yes Genitourinary: No Gastrointestinal: No Musculoskeletal: Yes (patient reports herniated, bulging cervical discs) Arthritis Endocrine: Yes Diabetes, Insulin dep HEENT: No Eye Injury Loss of Vision: Left Cancer: No Psychosocial: Yes Anxiety, Depression Integumentary: No Blood Disorders: Yes (Hep C, HIV) Adverse Reaction/Blood Tranf: No Family Medical History Cardiovascular disease 19 FATHER 19 MOTHER Diabetes mellitus 19 FATHER FH: lung disease 19 MOTHER Heart Disease, Diabetes, Hypertension Physical Exam Vital Signs Vital Signs - First Documented 02/06/21 13:57 Temp 36.3 Pulse 95 Resp 16 B/P (MAP) 169/93 (118) Pulse Ox 98 O2 Delivery Room Air Capillary Refill : Height/Weight/BMI Height: 5'5.00" Weight: 219lbs. 3.0oz. 99.302027zw; 34.00 BMI Method:Stated General Appearance: moderate distress (Given between writhing on the bed and just holding her upper stomach. Crying out repeatedly saying that her stomach hurts) Neck: non-tender, full range of motion Respiratory: chest non-tender, lungs clear, normal breath sounds Cardiovascular: normal peripheral pulses, regular rate, rhythm Gastrointestinal: soft, no pulsatile mass, abnormal bowel sounds (Decreased bowel sounds hypoactive); No guarding, No rebound; tenderness (Epigastric abdominal tenderness) Rectal: deferred Extremities: normal range of motion, non-tender, normal capillary refill Neurologic/Psychiatric: alert, oriented x 3 Skin: warm/dry, rash (Multiple small sores on her arms and legs from where it looks like she has been picking at her skin) Images 1 - epigastric abdominal pain with palpation Progress/Results/Core Measures Results/Orders Lab Results Laboratory Tests Test 02/06/21 15:20 Range/Units White Blood Count 11.3 H 4.3-11.0 10^3/uL Red Blood Count 5.04 3.80-5.11 10^6/uL Hemoglobin 14.8 11.5-16.0 g/dL Hematocrit 45 35-52 % Mean Corpuscular Volume 90 80-99 fL Mean Corpuscular Hemoglobin 29 25-34 pg Mean Corpuscular Hemoglobin Concent 33 32-36 g/dL Red Cell Distribution Width 13.1 10.0-14.5 % Platelet Count 251 130-400 10^3/uL Mean Platelet Volume 11.2 9.0-12.2 fL Immature Granulocyte % (Auto) 0 % Neutrophils (%) (Auto) 63 42-75 % Lymphocytes (%) (Auto) 27 12-44 % Monocytes (%) (Auto) 8 0-12 % Eosinophils (%) (Auto) 1 0-10 % Basophils (%) (Auto) 1 0-10 % Neutrophils # (Auto) 7.1 1.8-7.8 X 10^3 Lymphocytes # (Auto) 3.1 1.0-4.0 X 10^3 Monocytes # (Auto) 0.9 0.0-1.0 X 10^3 Eosinophils # (Auto) 0.1 0.0-0.3 10^3/uL Basophils # (Auto) 0.1 0.0-0.1 10^3/uL Immature Granulocyte # (Auto) 0.0 0.0-0.1 10^3/uL Sodium Level 134 L 135-145 MMOL/L Potassium Level 3.7 3.6-5.0 MMOL/L Chloride Level 94 L 98-107 MMOL/L Carbon Dioxide Level 29 21-32 MMOL/L Anion Gap 11 5-14 MMOL/L Blood Urea Nitrogen 7 7-18 MG/DL Creatinine 0.43 L 0.60-1.30 MG/DL Estimat Glomerular Filtration Rate 160 BUN/Creatinine Ratio 16 Glucose Level 287 H 70-105 MG/DL Calcium Level 9.6 8.5-10.1 MG/DL Corrected Calcium 9.4 8.5-10.1 MG/DL Total Bilirubin 1.0 0.1-1.0 MG/DL Aspartate Amino Transf (AST/SGOT) 15 5-34 U/L Alanine Aminotransferase (ALT/SGPT) 15 0-55 U/L Alkaline Phosphatase 97 40-136 U/L Total Protein 7.7 6.4-8.2 GM/DL Albumin 4.2 3.2-4.5 GM/DL Lipase 63 8-78 U/L My Orders Orders - ELIZABETH ESTEVEZ MD Ua Culture If Indicated (02/06/21 13:50) Comprehensive Metabolic Panel (02/06/21 14:49) Lipase (02/06/21 14:49) Ed Iv/Invasive Line Start (02/06/21 14:49) Cbc With Automated Diff (02/06/21 14:49) Ct Abdomen/Pelvis Wo (02/06/21 14:49) Drug Screen Stat (Urine) (02/06/21 14:49) Ondansetron Oral Dissolve Tab (Zofran (02/06/21 14:50) Fentanyl Inj (Sublimaze Injection) (02/06/21 15:30) Lorazepam Injection (Ativan Injection) (02/06/21 15:30) Ketorolac Injection (Toradol Injection) (02/06/21 15:30) Ns Iv 1000 Ml (Sodium Chloride 0.9%) (02/06/21 15:43) Medications Given in ED Current Medications Medications Dose Ordered Sig/Randy Route Start Time Stop Time Status Last Admin Dose Admin Fentanyl Citrate 50 mcg ONCE ONCE IVP 02/06/21 15:30 02/06/21 15:33 DC 02/06/21 15:48 50 MCG Ketorolac Tromethamine 30 mg ONCE ONCE IVP 02/06/21 15:30 02/06/21 15:33 DC 02/06/21 15:48 30 MG Lorazepam 1 mg ONCE ONCE IVP 02/06/21 15:30 02/06/21 15:33 DC 02/06/21 15:48 1 MG Vital Signs/I&O 02/06/21 02/06/21 13:57 17:13 Temp 36.3 Pulse 95 80 Resp 16 14 B/P (MAP) 169/93 (118) 142/88 Pulse Ox 98 100 O2 Delivery Room Air Room Air Progress Progress Note #1: Progress Note Obtain labs and UA with drug screen. CT scan of abdomen/pelvis to evaluate for pancreatitis or acute abdominal process. As patient states she is a difficult IV access patient will order medications IM and p.o. initially and if can get IV access will give fluids and IV meds Progress Note #2: Progress Note Nurse was able to obtain IV access so medicines were switched to IV. Labs appeared stable without acute significant normality. Given IV fluids. She was much more comfortable and states her pain was resolved after medications. Her lipase was normal but on CT it looks like she had inflammation of the head of the pancreas. She may have some chronic pancreatitis and was recommended that she follow a liquid diet for 24 to 48 hours while taking medicine for nausea and pain. Check back with her primary provider for continued concerns Diagnostic Imaging Diagonstic Imaging: CT Plain Films/CT/US/NM/MRI: abdomen, pelvis Comments [facility] [employer] [facility] [place], [place] NAME: LINDSEY DE [facility] REC#: [id number] PT STATUS: REG ER : 1975 PHYSICIAN: ELIZABETH ESTEVEZ MD ADMIT DATE: 02/06/21/ER FS Signed Date of Exam:02/06/21 CT ABDOMEN/PELVIS WO PROCEDURE: CT abdomen and pelvis without contrast. TECHNIQUE: Multiple contiguous axial images were obtained through the abdomen and pelvis without the use of intravenous contrast. Auto Exposure Controls were utilized during the CT exam to meet ALARA standards for radiation dose reduction. DATE: February 06, 2021. COMPARISON: CT abdomen and pelvis November 14, 2019. INDICATION: 45-year-old female, epigastric pain, nausea, vomiting. FINDINGS: There are limitations for evaluation of the abdominal organs, neoplastic processes, abscess and limited evaluation of the vasculature relating to the lack of intravenous contrast. The visualized portions of the lung bases are clear. The heart is not enlarged. There is no pericardial effusion. The liver is unremarkable in size and contour. The patient is status post cholecystectomy. There is no biliary ductal dilation. There is inflammatory stranding in the region of the pancreatic head. The pancreatic body and tail are grossly unremarkable in appearance. The spleen is normal in size. The adrenal glands are unremarkable. Limited noncontrast assessment of the renal parenchyma is unremarkable. The urinary collecting systems are not distended. There is no identified renal or ureteral stone. Pelvic calcifications are most consistent with phleboliths. The urinary bladder is unremarkable. Intestinal tract is not distended. The appendix is unremarkable. There is no free intraperitoneal air. There is no drainable fluid collection. There is no free pelvic fluid. There are atherosclerotic calcifications. There is no identified abnormally enlarged lymph node in the abdomen or pelvis meeting CT size criteria for adenopathy. There are degenerative changes of the spine. There is no identified acute bony abnormality. IMPRESSION: CT abdomen and pelvis: 1. Inflammatory stranding and ill-defined attenuation centered in the region of the pancreatic head favored to relate to focal acute pancreatitis. Recommend correlation clinically and with laboratory values. Dictated by: Dictated on workstation # [id number] Dict: 02/06/21 1544 Trans: 02/06/21 170 [facility] [id number] Interpreted by: SHEREEN ADORNO MD Electronically signed by: SHEREEN ADORNO MD 02/06/211700 Reviewed: Reviewed by Me Departure Impression Primary Impression: Epigastric abdominal pain Additional Impressions: Nausea Diarrhea Qualified Codes: R19.7 - Diarrhea, unspecified Pancreatitis Qualified Codes: K86.1 - Other chronic pancreatitis Disposition: HOME, SELF-CARE Condition: Improved Departure-Patient Inst. Decision time for Depature: 17:03 Referrals: REGINO LOCKETT MD (PCP/Family) Primary Care Physician Patient Instructions: Abdominal Pain, Adult ED, Chronic Pancreatitis (DC), Diarrhea, Adult ED, Full Liquid Diet Add. Discharge Instructions: Follow a clear or liquid diet for next 24-48 hours to let your stomach pain improve and inflammation of pancreas improve. Use nausea medicine to help settle your stomach. Dicyclomine (Bentyl) for abdominal pain/cramping. Hydrocodone for severe pain. Check with clinic for continued concerns All discharge instructions reviewed with patient and/or family. Voiced understanding. Scripts Hydrocodone/Acetaminophen (Hydrocodone-Acetamin 10-325 mg) 1 Each Tablet 1 EACH PO Q8H PRN for PAIN-SEVERE (8-10) for 3 Days, #9 TAB 0 Refills Prov: ELIZABETH ESTEVEZ MD 02/06/21 Ondansetron (Ondansetron Odt) 4 Mg Tab.rapdis 4 MG PO Q6H PRN for NAUSEA/VOMITING for 5 Days, #20 TAB 0 Refills Prov: ELIZABETH ESTEVEZ MD 02/06/21 Dicyclomine HCl (Dicyclomine HCl) 20 Mg Tablet 20 MG PO QID PRN for abdominal pain/cramping for 5 Days, #20 TAB 0 Refills Prov: ELIZABETH ESTEVEZ MD 02/06/21 ELIZABETH ESTEVEZ MD Feb 06, 2021 14:54
[2021-02-06 15:27] LABS: BASOPHILS % (AUTO) 1 % (0-10); EOSINOPHILS % (AUTO) 1 % (0-10); HEMATOCRIT 45 % (35-52); HEMOGLOBIN 14.8 g/dL (11.5-16.0); LYMPHOCYTES % (AUTO) 27 % (12-44); MEAN CORPUSCULAR HEMOGLOBIN 29 pg (25-34); MEAN CORPUSCULAR HGB CONC 33 g/dL (32-36); MEAN CORPUSCULAR VOLUME 90 fL (80-99); MEAN PLATELET VOLUME 11.2 fL (9.0-12.2); MONOCYTES % (AUTO) 8 % (0-12); NEUTROPHILS % (AUTO) 63 % (42-75); PLATELET COUNT 251 10^3/uL (130-400); WHITE BLOOD COUNT 11.3 10^3/uL (4.3-11.0)
[2021-02-06 15:28] LABS: BASOPHILS # (AUTO) 0.1 10^3/uL (0.0-0.1); EOSINOPHILS # (AUTO) 0.1 10^3/uL (0.0-0.3); LYMPHOCYTES # (AUTO) 3.1 X 10^3 (1.0-4.0); MONOCYTES # (AUTO) 0.9 X 10^3 (0.0-1.0); NEUTROPHILS # (AUTO) 7.1 X 10^3 (1.8-7.8)
[2021-02-06] MEDS ORDERED: KETOROLAC 30 MG/ML VIAL IVP ONE (15:30)
[2021-02-06] MEDS ORDERED: fentaNYL INJ 100 MCG/2 ML AMP IVP ONE (15:30)
[2021-02-06] MEDS ORDERED: LORazepam INJ 2 MG/ML (ATIVAN) VIAL IVP ONE (15:30)
[2021-02-06] MEDS ORDERED: NS IV 1000 ML 1,000 ML IV STA (15:43)
[2021-02-06 15:45] LABS: POTASSIUM 3.7 MMOL/L (3.6-5.0)
[2021-02-06 15:46] LABS: ALBUMIN 4.2 GM/DL (3.2-4.5); CALCIUM 9.6 MG/DL (8.5-10.1); CREATININE SERUM 0.43 MG/DL (0.60-1.30); TOTAL PROTEIN 7.7 GM/DL (6.4-8.2)
--- NOTE | 2021-02-06 15:57 | Diagnostic Imaging Report ---
PROCEDURE: CT abdomen and pelvis without contrast. TECHNIQUE: Multiple contiguous axial images were obtained through the abdomen and pelvis without the use of intravenous contrast. Auto Exposure Controls were utilized during the CT exam to meet ALARA standards for radiation dose reduction. DATE: February 06, 2021. COMPARISON: CT abdomen and pelvis November 14, 2019. INDICATION: 45-year-old female, epigastric pain, nausea, vomiting. FINDINGS: There are limitations for evaluation of the abdominal organs, neoplastic processes, abscess and limited evaluation of the vasculature relating to the lack of intravenous contrast. The visualized portions of the lung bases are clear. The heart is not enlarged. There is no pericardial effusion. The liver is unremarkable in size and contour. The patient is status post cholecystectomy. There is no biliary ductal dilation. There is inflammatory stranding in the region of the pancreatic head. The pancreatic body and tail are grossly unremarkable in appearance. The spleen is normal in size. The adrenal glands are unremarkable. Limited noncontrast assessment of the renal parenchyma is unremarkable. The urinary collecting systems are not distended. There is no identified renal or ureteral stone. Pelvic calcifications are most consistent with phleboliths. The urinary bladder is unremarkable. Intestinal tract is not distended. The appendix is unremarkable. There is no free intraperitoneal air. There is no drainable fluid collection. There is no free pelvic fluid. There are atherosclerotic calcifications. There is no identified abnormally enlarged lymph node in the abdomen or pelvis meeting CT size criteria for adenopathy. There are degenerative changes of the spine. There is no identified acute bony abnormality. IMPRESSION: CT abdomen and pelvis: 1. Inflammatory stranding and ill-defined attenuation centered in the region of the pancreatic head favored to relate to focal acute pancreatitis. Recommend correlation clinically and with laboratory values. Dictated by: Dictated on workstation # [id number]
[2021-02-06] MEDS ORDERED: DICY20TA10 PO (17:07)
[2021-02-06] MEDS ORDERED: HYDR-3820 PO (17:08)
[2021-02-06] MEDS ORDERED: ONDA4TAB11 PO (17:08)
[2021-02-06 17:13] VITALS: BP 142/88
== END 2021-02-06 17:15 | disposition home or self-care (01) ==
LOC: EDUNIT# 13:36 → ER FS 13:39
DX: K85.90 Acute pancreatitis without necrosis or infection, unspecified (principal); R19.7 Diarrhea, unspecified; J44.9 Chronic obstructive pulmonary disease, unspecified; I25.2 Old myocardial infarction; I10 Essential (primary) hypertension; E11.9 Type 2 diabetes mellitus without complications; F32.9 Major depressive disorder, single episode, unspecified; E78.00 Pure hypercholesterolemia, unspecified; G40.909 Epilepsy, unspecified, not intractable, without status epilepticus; F41.9 Anxiety disorder, unspecified; Z79.4 Long term (current) use of insulin; Z79.899 Other long term (current) drug therapy; Z79.82 Long term (current) use of aspirin; Z79.01 Long term (current) use of anticoagulants
CPT/HCPCS: 36415; 74176; 80053; 83690; 85025

== ENCOUNTER 2021-03-04 11:06 | Emergency (ER) | payer BC ==
[~2021-03-04] VITALS: Ht 160 cm; Wt 86.5 kg
[~2021-03-04 11:06] MED LIST changes: +DICY20TA10 PO; +HYDR-3820 PO; -LISI2.5T PO; +LISI2.5T13 PO; +ONDA4TAB11 PO
[2021-03-04 11:13] VITALS: BP 163/97
[2021-03-04] MEDS ORDERED: MUPI15CR11 TP (11:52)
[2021-03-04] MEDS ORDERED: FLUC150T PO (11:52)
[2021-03-04] MEDS ORDERED: SULF1TAB38 PO (11:52)
--- NOTE | 2021-03-04 11:54 | ED General ---
General Chief Complaint: Skin/Wound Problems Stated Complaint: SKIN INFECTION Nursing Triage Note: Patient reports she has been in [facility] for 3 days and has been without her medications for 3 days. She reports a history of frequent generalized skin infections/sores and states they have been worsening while she has been in [facility]. She also reports feeling as though she has a yeast infection, states she took diflucan, but her symptoms are not improving. Source of Information: Patient Exam Limitations: No Limitations History of Present Illness Date Seen by Provider: Mar 04, 2021 Time Seen by Provider: 11:15 Initial Comments This 45-year-old woman presents to the emergency room with concerns about skin sores on her face, torso, and extremities that are weeping and oozing purulent drainage. This is a chronic problem for her and has been exacerbated since her recent 3-day stay in local [facility]. She historically has treated them with Bactrim and Bactroban. She also complains of pelvic irritation on the skin consistent with prior episodes of candidiasis. She historically has taken Diflucan for this type of irritation. She denies any sexual activity for 4 years. She is afebrile. She does have an admitted history of methamphetamine abuse. She also is HIV and hepatitis C positive. She reports strict compliance with her HIV medication regimen. Allergies and Home Medications Allergies Coded Allergies: hydromorphone (Verified Allergy, Unknown, b/p and oxygen level drop, 09/16/18) tramadol (Verified Allergy, Unknown, ANAPHYLAXIS, 09/16/18) Uncoded Allergies: air casts (Allergy, Unknown, 11/28/17) Patient Home Medication List Home Medication List Reviewed: Yes Albuterol Sulfate (Proair Hfa) 1 Puff Puff, 2 PUFF IH Q4H PRN for SHORTNESS OF BREATH, (Reported) Entered as Reported by: ANNEMARIE ROGERS on 06/28/18 1022 Aspirin (Aspirin EC) 81 Mg Tablet.dr, 81 MG PO HS, (Reported) Entered as Reported by: ANNEMARIE ROGERS on 06/28/18 1001 Atorvastatin Calcium (Atorvastatin Calcium) 40 Mg Tablet, 40 MG PO HS, (Reported) Entered as Reported by: ANNEMARIE ROGERS on 09/17/18 0914 Bupropion HCl (Bupropion HCl Sr) 150 Mg Tablet.er, 150 MG PO BID, (Reported) Entered as Reported by: CAMILA MARTÍNEZ on 07/19/18 1504 Chlorhexidine Gluconate (Hibiclens) 118 Ml Liquid, 118 ML TP ONCE Prescribed by: BRETT BRADEN on 12/07/20 1101 Clonazepam (Clonazepam) 1 Mg Tablet, 1 MG PO Q8H PRN for ANXIETY Prescribed by: ELIZABETH ESTEVEZ on 06/28/20 1820 Clopidogrel Bisulfate (Clopidogrel) 75 Mg Tablet, 75 MG PO HS, (Reported) Entered as Reported by: ANNEMARIE ROGERS on 06/28/18 1001 Cyclobenzaprine HCl (Cyclobenzaprine HCl) 10 Mg Tablet, 10 MG PO Q8H PRN for SPASMS Prescribed by: REBECCA GALARZA on 07/28/20 1742 Diclofenac Potassium (Diclofenac Potassium) 50 Mg Tablet, 50 MG PO TID Prescribed by: JAIME RUDOLPH on 02/17/19 1704 Diclofenac Sodium (Diclofenac Sodium) 75 Mg Tablet.dr, 75 MG PO BID Prescribed by: JUSTA CARDENAS on 10/02/19 2136 Dicyclomine HCl (Dicyclomine HCl) 20 Mg Tablet, 20 MG PO QID PRN for abdominal pain/cramping Prescribed by: ELIZABETH ESTEVEZ on 02/06/21 1707 Dolutegravir Sodium (Tivicay) 50 Mg Tablet, 50 MG PO HS, (Reported) Entered as Reported by: CAMILA MARTÍNEZ on 07/19/18 1504 Emtricitabine/Tenofov Alafenam (Descovy 200-25 mg Tablet) 1 Each Tablet, 1 TAB PO HS, (Reported) Entered as Reported by: CAMILA MARTÍNEZ on 07/19/18 1504 Estradiol (Estradiol Tablet) 2 Mg Tablet, 2 MG PO DAILY, (Reported) Entered as Reported by: CAMILA MARTÍNEZ on 07/19/18 1504 Fluconazole (Diflucan) 150 Mg Tablet, 150 MG PO UD Prescribed by: JEFFERY PEREZ on 03/04/21 1152 Furosemide (Furosemide) 40 Mg Tablet, 40 MG PO DAILY, (Reported) Entered as Reported by: CAMILA MARTÍNEZ on 07/19/18 1504 Hydrocodone Bit/Acetaminophen (HYDROcodone/APAP 10/325 TABLET) 1 Each Tablet, 1 TAB PO TID PRN for PAIN-MODERATE, (Reported) Entered as Reported by: ANNEMARIE ROGERS on 09/17/18 0914 Hydrocodone Bit/Acetaminophen (Lortab 7.5 Mg Tablet) 1 Ea Tablet, 1 EACH PO Q6H PRN for BREAK THRU FOOT PAIN Prescribed by: SABRINA FRANCO on 11/25/18 1723 Hydrocodone/Acetaminophen (Hydrocodone-Acetamin 5-325 mg) 1 Each Tablet, 1 TAB PO Q6H PRN for PAIN-SEVERE (8-10) Prescribed by: ELIZABETH ESTEVEZ on 06/28/20 1820 Hydrocodone/Acetaminophen (Hydrocodone-Acetamin 5-325 mg) 1 Each Tablet, 1 TAB PO Q6H PRN for PAIN-MODERATE (5-7) Prescribed by: ROXIE RIVERA on 10/03/20 1215 Hydrocodone/Acetaminophen (Hydrocodone-Acetamin 10-325 mg) 1 Each Tablet, 1 EACH PO Q8H PRN for PAIN-SEVERE (8-10) Prescribed by: ELIZABETH ESTEVEZ on 02/06/21 1708 Insulin Aspart (Novolog) 100 Unit/1 Ml Susp, PER INSULIN PUMP, (Reported) Entered as Reported by: CAMILA MARTÍNEZ on 07/19/18 1504 Lisinopril (Lisinopril) 5 Mg Tablet, 5 MG PO HS, (Reported) Entered as Reported by: CAMILA MARTÍNEZ on 07/19/18 1504 Lisinopril (Lisinopril) 2.5 Mg Tablet, 2.5 MG PO DAILY, (Reported) Entered as Reported by: ANNEMARIE ROGERS on 09/17/18 0914 Metformin HCl (Metformin HCl ER) 500 Mg Tab.er.24h, 1,000 MG PO BID, (Reported) Entered as Reported by: CAMILA MARTÍNEZ on 07/19/18 1504 Metoprolol Tartrate (Metoprolol Tartrate) 25 Mg Tablet, 25 MG PO BID, (Reported) Entered as Reported by: CAMILA MARTÍNEZ on 07/19/18 1504 Metronidazole (Metronidazole) 500 Mg Tablet, 500 MG PO BID Prescribed by: ELIZABETH ESTEVEZ on 06/28/20 1819 Mupirocin (Mupirocin) 22 Gm Oint...g., 22 GM TP BID Prescribed by: BRETT BRADEN on 12/07/20 1101 Mupirocin Calcium (Mupirocin) 15 Gm Cream..g., 15 GM TP BID Prescribed by: JEFFERY PEREZ on 03/04/21 1152 Omeprazole (Omeprazole) 40 Mg Capsule.dr, 40 MG PO DAILY, (Reported) Entered as Reported by: ANNEMARIE ROGERS on 09/17/18913 Ondansetron (Ondansetron Odt) 8 Mg Tab.rapdis, 8 MG PO Q4H PRN for NAUSEA/VOMITING-1ST LINE, (Reported) Entered as Reported by: ANNEMARIE ROGERS on 09/17/18913 Ondansetron (Ondansetron Odt) 4 Mg Tab.rapdis, 4 MG PO Q6H PRN for NAUSEA/VOMITING Prescribed by: ELIZABETH ESTEVEZ on 02/06/21 1708 Oxycodone HCl/Acetaminophen (Percocet 5-325 mg Tablet) 1 Each Tablet, 1 TAB PO Q4H Prescribed by: BRETT BRADEN on 12/07/20 220 Oxycodone HCl/Acetaminophen (Percocet 5-325 mg Tablet) 1 Each Tablet, 1 TAB PO Q4H Prescribed by: BRETT BRADEN on 12/07/20 220 Oxycodone HCl/Acetaminophen (Percocet 5-325 mg Tablet) 1 Each Tablet, 1 TAB PO Q4H Prescribed by: BRETT BRADEN on 12/07/20 1759 Pregabalin (Lyrica) 75 Mg Capsule, 75 MG PO DAILY, (Reported) Entered as Reported by: CAMILA MARTÍNEZ on 07/19/18 1504 Pregabalin (Lyrica) 75 Mg Capsule, 150 MG PO HS, (Reported) Entered as Reported by: ANNEMARIE ROGERS on 09/17/18913 Sucralfate (Sucralfate) 1 Gm Tablet, 1 GM PO ACHS PRN for INDIGESTION, (Reported) Entered as Reported by: ANNEMARIE ROGERS on 09/17/18913 Sulfamethoxazole/Trimethoprim (Sulfamethoxazole-Tmp Ds Tablet) 1 Each Tablet, 1 EACH PO BID Prescribed by: MLALORIE LAWS on 03/08/19 170 Sulfamethoxazole/Trimethoprim (Bactrim Ds Tablet) 1 Each Tablet, 1 EACH PO BID Prescribed by: ROXIE RIVERA on 10/03/20 1215 Sulfamethoxazole/Trimethoprim (Bactrim Ds Tablet) 1 Each Tablet, 1 EACH PO BID Prescribed by: JEFFERY PEREZ on 03/04/21 1152 Review of Systems Review of Systems Constitutional: no symptoms reported EENTM: see HPI Respiratory: no symptoms reported Cardiovascular: no symptoms reported Gastrointestinal: no symptoms reported Genitourinary: see HPI : No Musculoskeletal: no symptoms reported Skin: see HPI Psychiatric/Neurological: No Symptoms Reported Hematologic/Lymphatic: No Symptoms Reported Immunological/Allergic: no symptoms reported Past Ewktoxa-Ijmvtd-Dijqgb Hx Patient Social History Tobacco Use?: Yes Tobacco type used: Cigarettes Smoking Status: Current Everyday Smoker Substance use?: Yes Substance type: Marijuana Alcohol Use?: No Pt feels they are or have been: No Immunizations Up To Date COVID19 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: [employer] Seasonal Allergies Seasonal Allergies: No Past Medical History Surgeries: Yes Coronary Stent, Eye Surgery, Gallbladder, Hysterectomy, Tubal Ligation Respiratory: Yes Asthma, COPD Cardiac: Yes Heart Attack, High Cholesterol, Hypertension Neurological: Yes (psuedoseizure when really stressed out) Seizure Disorder 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 Sexually Transmitted Disease: No HIV/AIDS: Yes Genitourinary: No Gastrointestinal: Yes Hepatitis (Hepatitis C) Musculoskeletal: Yes (patient reports herniated, bulging cervical discs) Arthritis Endocrine: Yes Diabetes, Insulin dep HEENT: Yes Eye Injury (No left eye) Loss of Vision: Left Cancer: No Psychosocial: Yes Anxiety, Depression Integumentary: No Blood Disorders: Yes (Hep C, HIV) Adverse Reaction/Blood Tranf: No Family Medical History Cardiovascular disease 19 FATHER 19 MOTHER Diabetes mellitus 19 FATHER FH: lung disease 19 MOTHER Heart Disease, Diabetes, Hypertension Physical Exam Vital Signs Vital Signs - First Documented 03/04/21 11:13 Temp 37.1 Pulse 90 Resp 18 B/P (MAP) 163/97 (119) Pulse Ox 99 O2 Delivery Room Air Capillary Refill : Less Than 3 Seconds Height, Weight, BMI Height: 5'5.00" Weight: 219lbs. 3.0oz. 99.937000hn; 33.00 BMI Method:Stated General Appearance: No Apparent Distress, WD/WN HEENT: Other (Left eye absent. 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 support specialist II-XII Norm as Tested Skin: Normal Color, Warm/Dry, Other (Scattered cratered and crusted skin sores in various stages of healing) Progress/Results/Core Measures Suspected Sepsis SIRS Temperature: Pulse: 90 Respiratory Rate: 18 Blood Pressure 163 /97 Mean: 119 Results/Orders Vital Signs/I&O 03/04/21 11:13 Temp 37.1 Pulse 90 Resp 18 B/P (MAP) 163/97 (119) Pulse Ox 99 O2 Delivery Room Air Capillary Refill : Less Than 3 Seconds Blood Pressure Mean: 119 Departure Impression Primary Impression: Skin lesions Additional Impression: Vulvovaginitis Disposition: 01 HOME, SELF-CARE Condition: Stable Departure-Patient Inst. Decision time for Depature: 11:49 Referrals: REGINO LOCKETT MD (PCP/Family) Primary Care Physician Patient Instructions: Vulvovaginal Yeast Infection Add. Discharge Instructions: Use your medications as prescribed. Follow-up with your primary care provider next week for reevaluation. Call with questions or concerns. Return to the ER if you have worsening symptoms. All discharge instructions reviewed with patient and/or family. Voiced understanding. Scripts Fluconazole (Diflucan) 150 Mg Tablet 150 MG PO UD, #2 TAB Take one now and repeat in 3 days. Prov: JEFFERY OLEARY MD 03/04/21 Sulfamethoxazole/Trimethoprim (Bactrim Ds Tablet) 1 Each Tablet 1 EACH PO BID, #14 TAB Prov: JEFFERY OLEARY MD 03/04/21 Mupirocin Calcium (Mupirocin) 15 Gm Cream..g. 15 GM TP BID, #1 EA Prov: JEFFERY OLEARY MD 03/04/21 JEFFERY OLEARY MD Mar 04, 2021 11:53
== END 2021-03-04 12:07 | disposition home or self-care (01) ==
LOC: EDUNIT# 11:06 → ER FS 11:08
DX: L98.9 Disorder of the skin and subcutaneous tissue, unspecified (principal); N76.0 Acute vaginitis; J44.9 Chronic obstructive pulmonary disease, unspecified; I10 Essential (primary) hypertension; I25.2 Old myocardial infarction; E78.00 Pure hypercholesterolemia, unspecified; E11.9 Type 2 diabetes mellitus without complications; F32.9 Major depressive disorder, single episode, unspecified; F41.9 Anxiety disorder, unspecified; G40.909 Epilepsy, unspecified, not intractable, without status epilepticus; F17.210 Nicotine dependence, cigarettes, uncomplicated; Z79.82 Long term (current) use of aspirin; Z79.01 Long term (current) use of anticoagulants; Z79.4 Long term (current) use of insulin; Z79.899 Other long term (current) drug therapy
CPT/HCPCS: 99281

== ENCOUNTER 2021-03-15 11:21 | Emergency (ER) | payer BC ==
[~2021-03-15] VITALS: Ht 160 cm; Wt 84.0 kg
[~2021-03-15 11:21] MED LIST changes: +CLIN-144; +CLIN-144 PO; -CLIN300C12; -CLIN300C12 PO; -ESTR2TAB PO; +ESTR2TAB3 PO; +FLUC150T PO; +MUPI15CR11 TP
[2021-03-15] MEDS ORDERED: LIDOCAINE 1% INJ 20 ML 20 ML VIAL INJ ONE (11:30)
[2021-03-15 12:16] VITALS: BP 137/102
--- NOTE | 2021-03-15 12:19 | ED Upper Extremity ---
General Chief Complaint: Skin/Wound Problems Stated Complaint: LT ARM INFECTION Nursing Triage Note: LEFT FOREARM HAS A ROUND RAISED ABSCESS LOOKIG AREA. PT HAS MANY OTHER OPEN WOUNDS AND SCABS ON HER ARMS AND FACE. Source: patient History of Present Illness Date Seen by Provider: Mar 15, 2021 Time Seen by Provider: 12:11 Initial Comments Patient is a 45-year-old female with history of HIV, MRSA and recurrent soft tissue abscesses who presents with a boil on her left extensor forearm. Patient noticed early boil formation a week ago and was started on Bactrim by her PCP. She reports increased swelling tenderness without erythema. On exam, there is a 3 x 3 cm boil mid extensor forearm with minimal fluctuance and no induration. There is no joint warmth or involvement above or below the boil. Patient does not have fever chills nausea vomiting or sweats no systemic symptoms or complaints at this time Onset: last week Pain/Injury Location: left forearm Method of Injury: other Modifying Factors: Improves With Other Allergies and Home Medications Allergies Coded Allergies: hydromorphone (Verified Allergy, Unknown, b/p and oxygen level drop, 09/16/18) tramadol (Verified Allergy, Unknown, ANAPHYLAXIS, 09/16/18) Uncoded Allergies: air casts (Allergy, Unknown, 11/28/17) Patient Home Medication List Home Medication List Reviewed: Yes Albuterol Sulfate (Proair Hfa) 1 Puff Puff, 2 PUFF IH Q4H PRN for SHORTNESS OF BREATH, (Reported) Entered as Reported by: ANNEMARIE ROGERS on 06/28/18 1022 Aspirin (Aspirin EC) 81 Mg Tablet.dr, 81 MG PO HS, (Reported) Entered as Reported by: ANNEMARIE ROGERS on 06/28/18 1001 Atorvastatin Calcium (Atorvastatin Calcium) 40 Mg Tablet, 40 MG PO HS, (Reported) Entered as Reported by: ANNEMARIE ROGERS on 09/17/18 0914 Bupropion HCl (Bupropion HCl Sr) 150 Mg Tablet.er, 150 MG PO BID, (Reported) Entered as Reported by: CAMILA MARTÍNEZ on 07/19/18 1504 Chlorhexidine Gluconate (Hibiclens) 118 Ml Liquid, 118 ML TP ONCE Prescribed by: BRETT BRADEN on 12/07/20 1101 Clonazepam (Clonazepam) 1 Mg Tablet, 1 MG PO Q8H PRN for ANXIETY Prescribed by: ELIZABETH ESTEVEZ on 06/28/20 1820 Clopidogrel Bisulfate (Clopidogrel) 75 Mg Tablet, 75 MG PO HS, (Reported) Entered as Reported by: ANNEMARIE ROGERS on 06/28/18 1001 Cyclobenzaprine HCl (Cyclobenzaprine HCl) 10 Mg Tablet, 10 MG PO Q8H PRN for SPASMS Prescribed by: REBECCA GALARZA on 07/28/20 1742 Diclofenac Potassium (Diclofenac Potassium) 50 Mg Tablet, 50 MG PO TID Prescribed by: JAIME RUDOLPH on 02/17/19 1704 Diclofenac Sodium (Diclofenac Sodium) 75 Mg Tablet.dr, 75 MG PO BID Prescribed by: JUSTA CARDENAS on 10/02/19 2136 Dicyclomine HCl (Dicyclomine HCl) 20 Mg Tablet, 20 MG PO QID PRN for abdominal pain/cramping Prescribed by: ELIZABETH ESTEVEZ on 02/06/21 1707 Dolutegravir Sodium (Tivicay) 50 Mg Tablet, 50 MG PO HS, (Reported) Entered as Reported by: CAMILA MARTÍNEZ on 07/19/18 1504 Emtricitabine/Tenofov Alafenam (Descovy 200-25 mg Tablet) 1 Each Tablet, 1 TAB PO HS, (Reported) Entered as Reported by: CAMILA MARTÍNEZ on 07/19/18 1504 Estradiol (Estradiol Tablet) 2 Mg Tablet, 2 MG PO DAILY, (Reported) Entered as Reported by: CAMILA MARTÍNEZ on 07/19/18 1504 Fluconazole (Diflucan) 150 Mg Tablet, 150 MG PO UD Prescribed by: JEFFERY PEREZ on 03/04/21 1152 Furosemide (Furosemide) 40 Mg Tablet, 40 MG PO DAILY, (Reported) Entered as Reported by: CAMILA MARTÍNEZ on 07/19/18 1504 Hydrocodone Bit/Acetaminophen (HYDROcodone/APAP 10/325 TABLET) 1 Each Tablet, 1 TAB PO TID PRN for PAIN-MODERATE, (Reported) Entered as Reported by: ANNEMARIE ROGERS on 09/17/18 0914 Hydrocodone Bit/Acetaminophen (Lortab 7.5 Mg Tablet) 1 Ea Tablet, 1 EACH PO Q6H PRN for BREAK THRU FOOT PAIN Prescribed by: SABRINA FRANCO on 11/25/18 1723 Hydrocodone/Acetaminophen (Hydrocodone-Acetamin 5-325 mg) 1 Each Tablet, 1 TAB PO Q6H PRN for PAIN-SEVERE (8-10) Prescribed by: ELIZABETH ESTEVEZ on 06/28/20 1820 Hydrocodone/Acetaminophen (Hydrocodone-Acetamin 5-325 mg) 1 Each Tablet, 1 TAB PO Q6H PRN for PAIN-MODERATE (5-7) Prescribed by: ROXIE RIVERA on 10/03/20 1215 Hydrocodone/Acetaminophen (Hydrocodone-Acetamin 10-325 mg) 1 Each Tablet, 1 EACH PO Q8H PRN for PAIN-SEVERE (8-10) Prescribed by: ELIZABETH ESTEVEZ on 02/06/21 1708 Insulin Aspart (Novolog) 100 Unit/1 Ml Susp, PER INSULIN PUMP, (Reported) Entered as Reported by: CAMILA MARTÍNEZ on 07/19/18 1504 Lisinopril (Lisinopril) 5 Mg Tablet, 5 MG PO HS, (Reported) Entered as Reported by: CAMILA MARTÍNEZ on 07/19/18 1504 Lisinopril (Lisinopril) 2.5 Mg Tablet, 2.5 MG PO DAILY, (Reported) Entered as Reported by: ANNEMARIE ROGERS on 09/17/18 0914 Metformin HCl (Metformin HCl ER) 500 Mg Tab.er.24h, 1,000 MG PO BID, (Reported) Entered as Reported by: CAMILA MARTÍNEZ on 07/19/18 1504 Metoprolol Tartrate (Metoprolol Tartrate) 25 Mg Tablet, 25 MG PO BID, (Reported) Entered as Reported by: CAMILA MARTÍNEZ on 07/19/18 1504 Metronidazole (Metronidazole) 500 Mg Tablet, 500 MG PO BID Prescribed by: ELIZABETH ESTEVEZ on 06/28/20 1819 Mupirocin (Mupirocin) 22 Gm Oint...g., 22 GM TP BID Prescribed by: BRETT BRADEN on 12/07/20 1101 Mupirocin Calcium (Mupirocin) 15 Gm Cream..g., 15 GM TP BID Prescribed by: JEFFERY PEREZ on 03/04/21 1152 Omeprazole (Omeprazole) 40 Mg Capsule.dr, 40 MG PO DAILY, (Reported) Entered as Reported by: ANNEMARIE ROGERS on 09/17/18913 Ondansetron (Ondansetron Odt) 8 Mg Tab.rapdis, 8 MG PO Q4H PRN for NAUSEA/VOMITING-1ST LINE, (Reported) Entered as Reported by: ANNEMARIE ROGERS on 09/17/18913 Ondansetron (Ondansetron Odt) 4 Mg Tab.rapdis, 4 MG PO Q6H PRN for NAUSEA/VOMITING Prescribed by: ELIZABETH ESTEVEZ on 02/06/21 170 Oxycodone HCl/Acetaminophen (Percocet 5-325 mg Tablet) 1 Each Tablet, 1 TAB PO Q4H Prescribed by: BRETT BRADEN on 12/07/202208 Oxycodone HCl/Acetaminophen (Percocet 5-325 mg Tablet) 1 Each Tablet, 1 TAB PO Q4H Prescribed by: BRETT BRADEN on 12/07/202208 Oxycodone HCl/Acetaminophen (Percocet 5-325 mg Tablet) 1 Each Tablet, 1 TAB PO Q4H Prescribed by: BRETT BRADEN on 12/07/20 1759 Pregabalin (Lyrica) 75 Mg Capsule, 75 MG PO DAILY, (Reported) Entered as Reported by: CAMILA MARTÍNEZ on 07/19/18 1504 Pregabalin (Lyrica) 75 Mg Capsule, 150 MG PO HS, (Reported) Entered as Reported by: ANNEMARIE ROGERS on 09/17/18913 Sucralfate (Sucralfate) 1 Gm Tablet, 1 GM PO ACHS PRN for INDIGESTION, (Reported) Entered as Reported by: ANNEMARIE ROGERS on 09/17/18913 Sulfamethoxazole/Trimethoprim (Sulfamethoxazole-Tmp Ds Tablet) 1 Each Tablet, 1 EACH PO BID Prescribed by: MALLORIE LAWS on 03/08/19 1705 Sulfamethoxazole/Trimethoprim (Bactrim Ds Tablet) 1 Each Tablet, 1 EACH PO BID Prescribed by: ROXIE RIVERA on 10/03/20 1215 Sulfamethoxazole/Trimethoprim (Bactrim Ds Tablet) 1 Each Tablet, 1 EACH PO BID Prescribed by: JEFFERY PEREZ on 03/04/21 1152 Review of Systems Constitutional: see HPI EENTM: see HPI Respiratory: see HPI Gastrointestinal: see HPI Genitourinary: see HPI Musculoskeletal: see HPI Skin: see HPI, other Past Xsdvmim-Juxsma-Ppwumg Hx Patient Social History Tobacco Use?: Yes Tobacco type used: Cigarettes Use of E-Cig and/or Vaping dev: No Substance use?: Yes Substance type: Marijuana Substance frequency: Daily Alcohol Use?: No Immunizations Up To Date Third COVID19 Vaccination Date: 02/18/2021 Seasonal Allergies Seasonal Allergies: No Past Medical History Surgery/Hospitalization HX: HIV Surgeries: Yes Coronary Stent, Eye Surgery, Gallbladder, Hysterectomy, Tubal Ligation Respiratory: Yes Asthma, COPD Cardiac: Yes Heart Attack, High Cholesterol, Hypertension Neurological: Yes (psuedoseizure when really stressed out) Seizure Disorder 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 Disorders: Yes [employer] History: Hysterectomy Sexually Transmitted Disease: No HIV/AIDS: Yes Genitourinary: No Gastrointestinal: Yes Hepatitis Musculoskeletal: Yes (patient reports herniated, bulging cervical discs) Arthritis Endocrine: Yes Diabetes, Insulin dep HEENT: Yes Eye Injury Loss of Vision: Left Cancer: No Psychosocial: Yes Anxiety, Depression Integumentary: No Blood Disorders: Yes (Hep C, HIV) Adverse Reaction/Blood Tranf: No Family Medical History Cardiovascular disease 19 FATHER 19 MOTHER Diabetes mellitus 19 FATHER FH: lung disease 19 MOTHER Heart Disease, Diabetes, Hypertension Physical Exam Vital Signs Vital Signs - First Documented 03/15/21 11:21 Temp 36.7 Pulse 109 Resp 16 B/P (MAP) 137/102 (114) Pulse Ox 100 O2 Delivery Room Air Capillary Refill : Less Than 3 Seconds Height, Weight, BMI Height: 5'5.00" Weight: 219lbs. 3.0oz. 99.551016sx; 32.00 BMI Method:Stated General Appearance: moderate distress Elbow/Forearm: soft tissue tenderness ( 3 x 3 cm boil L mid extensor forearm with minimal fluctuance and no induration) Wrist: Yes normal inspection, Yes non-tender Procedures/Interventions I&D : Site: Left forearm Blade Size: 11 I & D Procedure: betadine prep Progress Patient prepped with chlorhexidine. 1 mL of 1% lidocaine was injected over the apex of the soft tissue left forearm abscess. #11 blade was used to make a single stab incision over the area of greater fluctuance and a copious amount of pus was expressed until the boil was decompressed. It was then flushed and probed for loculations and bandage. Patient tolerated the procedure well without complications. Progress/Results/Core Measures Results/Orders My Orders Orders - BRETT BRADEN DO Lidocaine 1% Inj 20 Ml (Xylocaine 1% Inj (03/15/21 11:30) Vital Signs/I&O 03/15/21 11:21 Temp 36.7 Pulse 109 Resp 16 B/P (MAP) 137/102 (114) Pulse Ox 100 O2 Delivery Room Air Blood Pressure Mean: 114 Departure Communication (Admissions) Successful I&D of left forearm abscess. Wound bandaged. Will place on brief course of Bactrim with instructions to follow-up with PCP. Return precautions reviewed. Patient verbalizes understanding agreement discharge instructions prior to departure. Impression Primary Impression: Abscess of left forearm Disposition: HOME, SELF-CARE Condition: Stable Departure-Patient Inst. Decision time for Depature: 12:20 Referrals: REGINO LOCKETT MD (PCP/Family) Primary Care Physician Patient Instructions: Abscess Incision and Drainage Add. Discharge Instructions: Please keep wound clean, and covered. Take ibuprofen or Tylenol for pain and complete full course of antibiotics.. Follow-up with your PCP in 2 to 3 days for reevaluation. Return to the ED if new or worsening symptoms All discharge instructions reviewed with patient and/or family. Voiced understanding. Scripts Sulfamethoxazole/Trimethoprim (Bactrim Ds Tablet) 1 Each Tablet 1 EACH PO BID, #10 TAB Prov: BRETT BRADEN DO 03/15/21 BRETT BRADEN DO Mar 15, 2021 12:19
[2021-03-15] MEDS ORDERED: SULF1TAB38 PO (12:21)
== END 2021-03-15 12:24 | disposition home or self-care (01) ==
LOC: EDUNIT# 11:21 → ER FS 11:22
DX: L02.414 Cutaneous abscess of left upper limb (principal); I25.2 Old myocardial infarction; I10 Essential (primary) hypertension; E78.00 Pure hypercholesterolemia, unspecified; J44.9 Chronic obstructive pulmonary disease, unspecified; G40.909 Epilepsy, unspecified, not intractable, without status epilepticus; E11.9 Type 2 diabetes mellitus without complications; F41.9 Anxiety disorder, unspecified; F32.9 Major depressive disorder, single episode, unspecified; Z72.0 Tobacco use; Z86.14 Personal history of Methicillin resistant Staphylococcus aureus infection; Z79.82 Long term (current) use of aspirin; Z79.01 Long term (current) use of anticoagulants; Z79.4 Long term (current) use of insulin; Z79.899 Other long term (current) drug therapy
CPT/HCPCS: 10060

== ENCOUNTER → 2021-07-19 | Emergency (ER) | payer BC ==
[~2021-07-19] VITALS: Ht 160 cm; Wt 80.0 kg
[~2021-07-19] MED LIST changes: +CYCL10TA25 PO; -CYCL10TA9 PO; +DICY20TA PO; -DICY20TA10 PO; +HOLD METFORMIN - RECEIVED CONTRAST 20 ML VIAL IV SCH; +IOHEXOL 350 MG/ML 100 ML (OMNIPAQUE 350) VIAL IV ONE; -LISI-729 PO; +LISI5TAB20 PO; +NS 100 ML (IVPB) BAG IV ONE; +NS IV 1000 ML 1,000 ML IV SCH; +ONDANSETRON 4 MG/2 ML (SDV) Z0FRAN IVP ONE
[2021-07-19 12:39] VITALS: BP 124/90
[2021-07-19 13:34] LABS: BASOPHILS % (AUTO) 0 % (0-10); EOSINOPHILS # (AUTO) 0.2 10^3/uL (0.0-0.3); EOSINOPHILS % (AUTO) 2 % (0-10); HEMATOCRIT 40 % (35-52); HEMOGLOBIN 13.2 g/dL (11.5-16.0); LYMPHOCYTES # (AUTO) 3.3 10^3/uL (1.0-4.0); LYMPHOCYTES % (AUTO) 35 % (12-44); MEAN CORPUSCULAR HEMOGLOBIN 29 pg (25-34); MEAN CORPUSCULAR HGB CONC 33 g/dL (32-36); MEAN CORPUSCULAR VOLUME 87 fL (80-99); MONOCYTES # (AUTO) 0.6 10^3/uL (0.0-1.0); MONOCYTES % (AUTO) 7 % (0-12); NEUTROPHILS # (AUTO) 5.2 10^3/uL (1.8-7.8); NEUTROPHILS % (AUTO) 56 % (42-75); PLATELET COUNT 255 10^3/uL (130-400); WHITE BLOOD COUNT 9.4 10^3/uL (4.3-11.0)
[2021-07-19 13:37] LABS: BILIRUBIN,URINE NEGATIVE (NEGATIVE); CLARITY,URINE CLEAR; COLOR,URINE YELLOW; GLUCOSE, URINE (UA) 3+ (NEGATIVE); KETONES,URINE NEGATIVE (NEGATIVE); LEUKOCYTE ESTERASE ,URINE NEGATIVE (NEGATIVE); NITRITE,URINE NEGATIVE (NEGATIVE); PH,URINE 5.5 (5-9); PROTEIN,URINE NEGATIVE (NEGATIVE)
[2021-07-19 13:49] LABS: BACTERIA,URINE NEGATIVE /HPF; SQUAMOUS EPITHELIAL CELL,UR RARE /HPF; WBC,URINE RARE /HPF
[2021-07-19 13:58] LABS: AMPHETAMINE SCREEN, URINE NEGATIVE (NEGATIVE); BARBITURATE SCREEN URINE NEGATIVE (NEGATIVE); BENZODIAZEPINES SCREEN URINE NEGATIVE (NEGATIVE); CANNABINOID SCREEN, URINE POSITIVE (NEGATIVE); COCAINE SCREEN URINE NEGATIVE (NEGATIVE); METHADONE STAT NEGATIVE (NEGATIVE); METHAMPHETAMINE SCREEN URINE S NEGATIVE (NEGATIVE); OPIATE SCREEN URINE NEGATIVE (NEGATIVE); OXYCODONE STAT NEGATIVE (NEGATIVE); PROPOXYPHENE STAT NEGATIVE (NEGATIVE); TRICYCLIC ANTIDEPRESSANTS SCRE NEGATIVE (NEGATIVE)
[2021-07-19 13:59] LABS: ALANINE AMINOTRANSFERASE 12 U/L (0-55); ALKALINE PHOSPHATASE 71 U/L (40-136); BILIRUBIN,TOTAL 0.4 MG/DL (0.1-1.0); BUN/CREATININE RATIO 17; CALCIUM 8.8 MG/DL (8.5-10.1); CARBON DIOXIDE 22 MMOL/L (21-32); CHLORIDE 100 MMOL/L (98-107); CREATININE SERUM 0.41 MG/DL (0.60-1.30); GFR ESTIMATED 124; GLUCOSE 328 MG/DL (70-105); POTASSIUM 4.5 MMOL/L (3.6-5.0); SODIUM 133 MMOL/L (135-145)
--- NOTE | 2021-07-19 14:32 | ED Abdominal Pain ---
General Chief Complaint: Abdominal/GI Problems Stated Complaint: ABD PAIN Nursing Triage Note: Patient complains of abd pain with intermittant vomiting over the last 5 weeks. She reports that the pain started 5 weeks ago just before goint to group home. Last week she got out of group home and she still has pain. She has been taking tylenol and ibuprofen for the pain. Two days she vomitted and she reports blood in her emesis - looked like coffee grounds. She continues to have pain today and called EMS for evaluation and transport to ER. Source of Information: Patient Exam Limitations: No Limitations History of Present Illness Date Seen by Provider: Jul 19, 2021 Time Seen by Provider: 14:30 Initial Comments Patient is a 46-year-old female well-known to this emergency department with history of chronic abdominal pain, methamphetamine use who presents with diffuse lower abdominal pain and diarrhea. Symptoms been ongoing for weeks. Patient recently released from group home. She states she was contacted her PCP today and was told to go to the emergency department for evaluation of possible appendicitis. She denies fever chills, sweats or decreased appetite. She reports daily vomiting which is longstanding. No other acute symptoms or complaints Timing/Duration: 1 Hour, 1-3 Hours, Intermittent, Other Severity/Quality: Other Location: Other Radiation: Other Activities at Onset: Other Modifying Factors: Improves With Other Associated Symptoms: Other Allergies and Home Medications Allergies Coded Allergies: hydromorphone (Verified Allergy, Unknown, b/p and oxygen level drop, 09/16/18) tramadol (Verified Allergy, Unknown, ANAPHYLAXIS, 09/16/18) Uncoded Allergies: air casts (Allergy, Unknown, 11/28/17) Patient Home Medication List Home Medication List Reviewed: Yes Albuterol Sulfate (Proair Hfa) 1 Puff Puff, 2 PUFF IH Q4H PRN for SHORTNESS OF BREATH, (Reported) Entered as Reported by: ANNEMARIE ROGERS on 06/28/18 1022 Aspirin (Aspirin EC) 81 Mg Tablet.dr, 81 MG PO HS, (Reported) Entered as Reported by: ANNEMARIE ROGERS on 06/28/18 1001 Atorvastatin Calcium (Atorvastatin Calcium) 40 Mg Tablet, 40 MG PO HS, (Reported) Entered as Reported by: ANNEMARIE ROGERS on 09/17/18 0914 Bupropion HCl (Bupropion HCl Sr) 150 Mg Tablet.er, 150 MG PO BID, (Reported) Entered as Reported by: CAMILA MARTÍNEZ on 07/19/18 1504 Chlorhexidine Gluconate (Hibiclens) 118 Ml Liquid, 118 ML TP ONCE Prescribed by: BRETT BRADEN on 12/07/20 1101 Clonazepam (Clonazepam) 1 Mg Tablet, 1 MG PO Q8H PRN for ANXIETY Prescribed by: ELIZABETH ESTEVEZ on 06/28/20 1820 Clopidogrel Bisulfate (Clopidogrel) 75 Mg Tablet, 75 MG PO HS, (Reported) Entered as Reported by: ANNEMARIE ROGERS on 06/28/18 1001 Cyclobenzaprine HCl (Cyclobenzaprine HCl) 10 Mg Tablet, 10 MG PO Q8H PRN for SPASMS Prescribed by: REBECCA GALARZA on 07/28/20 1742 Diclofenac Potassium (Diclofenac Potassium) 50 Mg Tablet, 50 MG PO TID Prescribed by: JAIME RUDOLPH on 02/17/19 1704 Diclofenac Sodium (Diclofenac Sodium) 75 Mg Tablet.dr, 75 MG PO BID Prescribed by: JUSTA CARDENAS on 10/02/19 2136 Dicyclomine HCl (Dicyclomine HCl) 20 Mg Tablet, 20 MG PO QID PRN for abdominal pain/cramping Prescribed by: ELIZABETH ESTEVEZ on 02/06/21 1707 Dolutegravir Sodium (Tivicay) 50 Mg Tablet, 50 MG PO HS, (Reported) Entered as Reported by: CAMILA MARTÍNEZ on 07/19/18 1504 Emtricitabine/Tenofov Alafenam (Descovy 200-25 mg Tablet) 1 Each Tablet, 1 TAB PO HS, (Reported) Entered as Reported by: CAMILA MARTÍNEZ on 07/19/18 1504 Estradiol (Estradiol Tablet) 2 Mg Tablet, 2 MG PO DAILY, (Reported) Entered as Reported by: CAMILA MARTÍNEZ on 07/19/18 1504 Fluconazole (Diflucan) 150 Mg Tablet, 150 MG PO UD Prescribed by: JEFFERY PEREZ on 03/04/21 1152 Furosemide (Furosemide) 40 Mg Tablet, 40 MG PO DAILY, (Reported) Entered as Reported by: CAMILA MARTÍNEZ on 07/19/18 1504 Hydrocodone Bit/Acetaminophen (HYDROcodone/APAP 10/325 TABLET) 1 Each Tablet, 1 TAB PO TID PRN for PAIN-MODERATE, (Reported) Entered as Reported by: ANNEMARIE ROGERS on 09/17/18 0914 Hydrocodone Bit/Acetaminophen (Lortab 7.5 Mg Tablet) 1 Ea Tablet, 1 EACH PO Q6H PRN for BREAK THRU FOOT PAIN Prescribed by: SABRINA FRANCO on 11/25/18 1723 Hydrocodone/Acetaminophen (Hydrocodone-Acetamin 5-325 mg) 1 Each Tablet, 1 TAB PO Q6H PRN for PAIN-SEVERE (8-10) Prescribed by: ELIZABETH ESTEVEZ on 06/28/20 1820 Hydrocodone/Acetaminophen (Hydrocodone-Acetamin 5-325 mg) 1 Each Tablet, 1 TAB PO Q6H PRN for PAIN-MODERATE (5-7) Prescribed by: ROXIE RIVERA on 10/03/20 1215 Hydrocodone/Acetaminophen (Hydrocodone-Acetamin 10-325 mg) 1 Each Tablet, 1 EACH PO Q8H PRN for PAIN-SEVERE (8-10) Prescribed by: ELIZABETH ESTEVEZ on 02/06/21 1708 Insulin Aspart (Novolog) 100 Unit/1 Ml Susp, PER INSULIN PUMP, (Reported) Entered as Reported by: CAMILA MARTÍNEZ on 07/19/18 1504 Lisinopril (Lisinopril) 5 Mg Tablet, 5 MG PO HS, (Reported) Entered as Reported by: CAMILA MARTÍNEZ on 07/19/18 1504 Lisinopril (Lisinopril) 2.5 Mg Tablet, 2.5 MG PO DAILY, (Reported) Entered as Reported by: ANNEMARIE ROGERS on 09/17/18 0914 Metformin HCl (Metformin HCl ER) 500 Mg Tab.er.24h, 1,000 MG PO BID, (Reported) Entered as Reported by: CAMILA MARTÍNEZ on 07/19/18 1504 Metoprolol Tartrate (Metoprolol Tartrate) 25 Mg Tablet, 25 MG PO BID, (Reported) Entered as Reported by: CAMILA MARTÍNEZ on 07/19/18 1504 Metronidazole (Metronidazole) 500 Mg Tablet, 500 MG PO BID Prescribed by: ELIZABETH ESTEVEZ on 06/28/20 181 Mupirocin (Mupirocin) 22 Gm Oint...g., 22 GM TP BID Prescribed by: BRETT BRADEN on 12/07/20 1101 Mupirocin Calcium (Mupirocin) 15 Gm Cream..g., 15 GM TP BID Prescribed by: JEFFERY PEREZ on 03/04/21 1152 Omeprazole (Omeprazole) 40 Mg Capsule.dr, 40 MG PO DAILY, (Reported) Entered as Reported by: ANNEMARIE ROGERS on 09/17/18 09 Ondansetron (Ondansetron Odt) 8 Mg Tab.rapdis, 8 MG PO Q4H PRN for NAUSEA/VOMITING-1ST LINE, (Reported) Entered as Reported by: ANNEMARIE ROGERS on 09/17/18 09 Ondansetron (Ondansetron Odt) 4 Mg Tab.rapdis, 4 MG PO Q6H PRN for NAUSEA/VOMITING Prescribed by: ELIZABETH ESTEVEZ on 02/06/21 1708 Oxycodone HCl/Acetaminophen (Percocet 5-325 mg Tablet) 1 Each Tablet, 1 TAB PO Q4H Prescribed by: BRETT BRADEN on 12/07/20 2209 Oxycodone HCl/Acetaminophen (Percocet 5-325 mg Tablet) 1 Each Tablet, 1 TAB PO Q4H Prescribed by: BRETT BRADEN on 12/07/20 220 Oxycodone HCl/Acetaminophen (Percocet 5-325 mg Tablet) 1 Each Tablet, 1 TAB PO Q4H Prescribed by: BRETT BRADEN on 12/07/20 1759 Pregabalin (Lyrica) 75 Mg Capsule, 75 MG PO DAILY, (Reported) Entered as Reported by: CAMILA MARTÍNEZ on 07/19/18 1504 Pregabalin (Lyrica) 75 Mg Capsule, 150 MG PO HS, (Reported) Entered as Reported by: ANNEMARIE ROGERS on 09/17/18 09 Sucralfate (Sucralfate) 1 Gm Tablet, 1 GM PO ACHS PRN for INDIGESTION, (Reported) Entered as Reported by: ANNEMARIE ROGERS on 09/17/18913 Sulfamethoxazole/Trimethoprim (Sulfamethoxazole-Tmp Ds Tablet) 1 Each Tablet, 1 EACH PO BID Prescribed by: MALLORIE LAWS on 03/08/19 1705 Sulfamethoxazole/Trimethoprim (Bactrim Ds Tablet) 1 Each Tablet, 1 EACH PO BID Prescribed by: ROXIE RIVERA on 10/03/20 1215 Sulfamethoxazole/Trimethoprim (Bactrim Ds Tablet) 1 Each Tablet, 1 EACH PO BID Prescribed by: JEFFERY PEREZ on 03/04/21 1152 Sulfamethoxazole/Trimethoprim (Bactrim Ds Tablet) 1 Each Tablet, 1 EACH PO BID Prescribed by: BRETT BRADEN on 03/15/21 1221 Review of Systems Review of Systems Constitutional: see HPI EENTM: See HPI Respiratory: See HPI Cardiovascular: See HPI Gastrointestinal: See HPI Genitourinary: See HPI Musculoskeletal: see HPI Skin: see HPI Psychiatric/Neurological: See HPI Endocrine: See HPI Hematologic/Lymphatic: See HPI All Other Systems Reviewed Negative Unless Noted: Yes Past Zkwactm-Zbnzrz-Mfpidc Hx Patient Social History Tobacco Use?: No Use of E-Cig and/or Vaping dev: No Substance use?: No Alcohol Use?: No Immunizations Up To Date Third COVID19 Vaccination Date: 02/18/2021 Seasonal Allergies Seasonal Allergies: No Past Medical History Surgery/Hospitalization HX: HIV Surgeries: Yes Coronary Stent, Eye Surgery, Gallbladder, Hysterectomy, Tubal Ligation Respiratory: Yes Asthma, COPD Cardiac: Yes Heart Attack, High Cholesterol, Hypertension Neurological: Yes (psuedoseizure when really stressed out) Seizure Disorder 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 Sexually Transmitted Disease: No HIV/AIDS: Yes Genitourinary: No Gastrointestinal: Yes Hepatitis Musculoskeletal: Yes (patient reports herniated, bulging cervical discs) Arthritis Endocrine: Yes Diabetes, Insulin dep HEENT: Yes Eye Injury Loss of Vision: Left Cancer: No Psychosocial: Yes Anxiety, Depression Integumentary: No Blood Disorders: Yes (Hep C, HIV) Adverse Reaction/Blood Tranf: No Family Medical History Cardiovascular disease 19 FATHER 19 MOTHER Diabetes mellitus 19 FATHER FH: lung disease 19 MOTHER Heart Disease, Diabetes, Hypertension Physical Exam Vital Signs Vital Signs - First Documented 07/19/21 12:39 Temp 36.3 Pulse 78 Resp 16 B/P (MAP) 124/90 (101) O2 Delivery Room Air Capillary Refill : Height/Weight/BMI Height: 5'5.00" Weight: 219lbs. 3.0oz. 99.056307sr; 31.00 BMI Method:Stated General Appearance: WD/WN, no apparent distress HEENT: PERRL/EOMI, normal ENT inspection, pharynx normal Neck: full range of motion, supple Respiratory: decreased breath sounds Cardiovascular: regular rate, rhythm, no edema Gastrointestinal: soft Extremities: non-tender Back: normal inspection, no CVA tenderness Neurologic/Psychiatric: no motor/sensory deficits, alert, normal mood/affect, oriented x 3 Skin: normal color, warm/dry Progress/Results/Core Measures Results/Orders Lab Results Laboratory Tests Test 07/19/21 13:25 Range/Units White Blood Count 9.4 4.3-11.0 10^3/uL Red Blood Count 4.58 3.80-5.11 10^6/uL Hemoglobin 13.2 11.5-16.0 g/dL Hematocrit 40 35-52 % Mean Corpuscular Volume 87 80-99 fL Mean Corpuscular Hemoglobin 29 25-34 pg Mean Corpuscular Hemoglobin Concent 33 32-36 g/dL Red Cell Distribution Width 13.1 10.0-14.5 % Platelet Count 255 130-400 10^3/uL Mean Platelet Volume 11.0 9.0-12.2 fL Immature Granulocyte % (Auto) 0 % Neutrophils (%) (Auto) 56 42-75 % Lymphocytes (%) (Auto) 35 12-44 % Monocytes (%) (Auto) 7 0-12 % Eosinophils (%) (Auto) 2 0-10 % Basophils (%) (Auto) 0 0-10 % Neutrophils # (Auto) 5.2 1.8-7.8 10^3/uL Lymphocytes # (Auto) 3.3 1.0-4.0 10^3/uL Monocytes # (Auto) 0.6 0.0-1.0 10^3/uL Eosinophils # (Auto) 0.2 0.0-0.3 10^3/uL Basophils # (Auto) 0.0 0.0-0.1 10^3/uL Immature Granulocyte # (Auto) 0.0 0.0-0.1 10^3/uL Urine Color YELLOW Urine Clarity CLEAR Urine pH 5.5 5-9 Urine Specific [place] 1.025 H 1.016-1.022 Urine Protein NEGATIVE NEGATIVE Urine Glucose (UA) 3+ H NEGATIVE Urine Ketones NEGATIVE NEGATIVE Urine Nitrite NEGATIVE NEGATIVE Urine Bilirubin NEGATIVE NEGATIVE Urine Urobilinogen 0.2 < = 1.0 MG/DL Urine Leukocyte Esterase NEGATIVE NEGATIVE Urine RBC (Auto) NEGATIVE NEGATIVE Urine RBC NONE /HPF Urine WBC RARE /HPF Urine Squamous Epithelial Cells RARE /HPF Urine Crystals NONE /LPF Urine Bacteria NEGATIVE /HPF Urine Casts NONE /LPF Urine Mucus NEGATIVE /LPF Urine Culture Indicated NO Sodium Level 133 L 135-145 MMOL/L Potassium Level 4.5 3.6-5.0 MMOL/L Chloride Level 100 98-107 MMOL/L Carbon Dioxide Level 22 21-32 MMOL/L Anion Gap 11 5-14 MMOL/L Blood Urea Nitrogen 7 7-18 MG/DL Creatinine 0.41 L 0.60-1.30 MG/DL Estimat Glomerular Filtration Rate 124 BUN/Creatinine Ratio 17 Glucose Level 328 H 70-105 MG/DL Calcium Level 8.8 8.5-10.1 MG/DL Corrected Calcium 8.8 8.5-10.1 MG/DL Total Bilirubin 0.4 0.1-1.0 MG/DL Aspartate Amino Transf (AST/SGOT) 12 5-34 U/L Alanine Aminotransferase (ALT/SGPT) 12 0-55 U/L Alkaline Phosphatase 71 40-136 U/L C-Reactive Protein < 0.30 <0.50 MG/DL Total Protein 7.0 6.4-8.2 GM/DL Albumin 4.0 3.2-4.5 GM/DL Urine Opiates Screen NEGATIVE NEGATIVE Urine Oxycodone Screen NEGATIVE NEGATIVE Urine Methadone Screen NEGATIVE NEGATIVE Urine Propoxyphene Screen NEGATIVE NEGATIVE Urine Barbiturates Screen NEGATIVE NEGATIVE Ur Tricyclic Antidepressants Screen NEGATIVE NEGATIVE Urine Phencyclidine Screen NEGATIVE NEGATIVE Urine Amphetamines Screen NEGATIVE NEGATIVE Urine Methamphetamines Screen NEGATIVE NEGATIVE Urine Benzodiazepines Screen NEGATIVE NEGATIVE Urine Cocaine Screen NEGATIVE NEGATIVE Urine Cannabinoids Screen POSITIVE H NEGATIVE Serum Alcohol < 10 <10 MG/DL My Orders Orders - BRETT BRADEN DO Cbc With Automated Diff (07/19/21 13:10) Comprehensive Metabolic Panel (07/19/21 13:10) Crp Fs (07/19/21 13:10) Ua Culture If Indicated (07/19/21 13:10) Ct Abdomen/Pelvis W (07/19/21 13:10) Ondansetron Injection (Zofran Injectio (07/19/21 13:15) Ns Iv 1000 Ml (Sodium Chloride 0.9%) (07/19/21 13:15) Drug Screen Stat (Urine) (07/19/21 13:10) Alcohol (07/19/21 13:10) Iohexol Injection (Omnipaque 350 Mg/Ml 1 (07/19/21 14:00) Received Contrast (Hold Metformin- Contr (07/19/21 14:00) Ns (Ivpb) (Sodium Chloride 0.9% Ivpb Bag (07/19/21 14:00) Medications Given in ED Current Medications Medications Dose Ordered Sig/Randy Route Start Time Stop Time Status Last Admin Dose Admin Iohexol 100 ml ONCE ONCE IV 07/19/21 14:00 07/19/21 14:01 DC 07/19/21 14:19 100 ML Ondansetron HCl 4 mg ONCE ONCE IVP 07/19/21 13:15 07/19/21 13:16 DC 07/19/21 13:44 4 MG Sodium Chloride 100 ml ONCE ONCE IV 07/19/21 14:00 07/19/21 14:01 DC 07/19/21 14:19 100 ML Vital Signs/I&O 07/19/21 12:39 Temp 36.3 Pulse 78 Resp 16 B/P (MAP) 124/90 (101) O2 Delivery Room Air Blood Pressure Mean: 101 Departure Communication (Admissions) CT abdomen pelvis: No acute findings per radiology report CT abdomen and pelvis labs unremarkable. Suspect chronic abdominal pain related to cannabis use. Recommendations are supportive care with PCP/GI follow-up. Patient has home medications available to her. Return precautions reviewed. Patient verbalizes understanding agreement discharge instructions prior to departure. Impression Primary Impression: Abdominal pain Additional Impression: Nausea & vomiting Disposition: HOME, SELF-CARE Condition: Stable Departure-Patient Inst. Decision time for Depature: 15:14 Referrals: REGINO LOCKETT MD (PCP/Family) Primary Care Physician Patient Instructions: Nausea and Vomiting, Adult, Abdominal Pain, Adult ED Add. Discharge Instructions: Please go home and rest take nausea medication as directed and follow-up with your PCP for further management of chronic abdominal pain. All discharge instructions reviewed with patient and/or family. Voiced understanding. Scripts Ondansetron (Ondansetron Odt) 4 Mg Tab.rapdis 4 MG PO Q6H, #10 TAB Prov: BRETT BRADEN DO 07/19/21 BRETT BRADEN DO Jul 19, 2021 14:32
--- NOTE | 2021-07-19 14:37 | Diagnostic Imaging Report ---
PROCEDURE: CT abdomen and pelvis with contrast. TECHNIQUE: Multiple contiguous axial images were obtained through the abdomen and pelvis after administration of intravenous contrast. Auto Exposure Controls were utilized during the CT exam to meet ALARA standards for radiation dose reduction. All CT scans use one or more of the following dose optimizing techniques: automated exposure control, MA and/or KvP adjustment based on patient size and exam type or iterative reconstruction. INDICATION: Abdominal pain and vomiting for the last 5 weeks. FINDINGS: The lung bases are clear. No focal liver mass is detected. The gallbladder is surgically absent. There is no biliary ductal dilatation. The pancreas and spleen are unremarkable. No adrenal mass is detected. The kidneys are grossly unremarkable. No hydronephrosis is identified. The aorta is nonaneurysmal. The bowel loops appear nonobstructed. The appendix is visualized and unremarkable. There is no free fluid or fluid collection. There is no free air. The bladder is unremarkable. The uterus appears to be surgically absent. IMPRESSION: No acute abnormality is identified. Dictated by: Dictated on workstation # [id number]
== END ==
LOC: EDUNIT# 12:31 → ER FS 12:33
DX: R10.30 Lower abdominal pain, unspecified (principal); R11.2 Nausea with vomiting, unspecified
CPT/HCPCS: 36415; 74177; 80053; 80306; 81000; 85025; 86141; 99283; G0480; 80320; Q9967

== ENCOUNTER 2021-08-24 16:25 | Emergency (ER) | payer BC ==
[~2021-08-24] VITALS: Ht 160 cm; Wt 78.0 kg
[~2021-08-24 16:25] MED LIST changes: -HOLD METFORMIN - RECEIVED CONTRAST 20 ML VIAL IV SCH; -IOHEXOL 350 MG/ML 100 ML (OMNIPAQUE 350) VIAL IV ONE; -NS 100 ML (IVPB) BAG IV ONE; -NS IV 1000 ML 1,000 ML IV SCH; -ONDANSETRON 4 MG/2 ML (SDV) Z0FRAN IVP ONE
[2021-08-24 16:38] VITALS: BP 149/90
--- NOTE | 2021-08-24 16:40 | ED Integumentary General ---
General Chief Complaint: Skin/Wound Problems Stated Complaint: L HAND SPIDER BITE Source: patient Exam Limitations: no limitations History of Present Illness Date Seen by Provider: Aug 24, 2021 Time Seen by Provider: 16:28 Initial Comments 46yoF with PMH of COPD and polysubstance use coming in due to a wound she is concerned could be infected on her left hand. She noticed it a couple days ago and has become slightly larger and more red. She did not know if it could possibly be a bug bite. She had some left over amoxicillin at the house that she tried taking. She is having constant throbbing mild pain in the hand that she took ibuprofen and tylenol for which helped. Otherwise denying any fever or other acute complaints. Allergies and Home Medications Allergies Coded Allergies: hydromorphone (Verified Allergy, Unknown, b/p and oxygen level drop, 09/16/18) tramadol (Verified Allergy, Unknown, ANAPHYLAXIS, 09/16/18) Uncoded Allergies: air casts (Allergy, Unknown, 11/28/17) Patient Home Medication List Home Medication List Reviewed: Yes Albuterol Sulfate (Proair Hfa) 1 Puff Puff, 2 PUFF IH Q4H PRN for SHORTNESS OF BREATH, (Reported) Entered as Reported by: ANNEMARIE ROGERS on 06/28/18 1022 Aspirin (Aspirin EC) 81 Mg Tablet.dr, 81 MG PO HS, (Reported) Entered as Reported by: ANNEMARIE ROGERS on 06/28/18 1001 Atorvastatin Calcium (Atorvastatin Calcium) 40 Mg Tablet, 40 MG PO HS, (Report ed) Entered as Reported by: ANNEMARIE ROGERS on 09/17/18 0914 Bupropion HCl (Bupropion HCl Sr) 150 Mg Tablet.er, 150 MG PO BID, (Reported) Entered as Reported by: CAMILA MARTÍNEZ on 07/19/18 1504 Cephalexin (Cephalexin) 500 Mg Tablet, 500 MG PO QID Prescribed by: RENA FRANKLIN on 08/24/21 1651 Chlorhexidine Gluconate (Hibiclens) 118 Ml Liquid, 118 ML TP ONCE Prescribed by: BRETT BRADEN on 12/07/20 1101 Clonazepam (Clonazepam) 1 Mg Tablet, 1 MG PO Q8H PRN for ANXIETY Prescribed by: ELIZABETH ESTEVEZ on 06/28/20 1820 Clopidogrel Bisulfate (Clopidogrel) 75 Mg Tablet, 75 MG PO HS, (Reported) Entered as Reported by: ANNEMARIE ROGERS on 06/28/18 1001 Cyclobenzaprine HCl (Cyclobenzaprine HCl) 10 Mg Tablet, 10 MG PO Q8H PRN for SPASMS Prescribed by: REBECCA GALARZA on 07/28/20 1742 Diclofenac Potassium (Diclofenac Potassium) 50 Mg Tablet, 50 MG PO TID Prescribed by: JAIME RUDOLPH on 02/17/19 1704 Diclofenac Sodium (Diclofenac Sodium) 75 Mg Tablet.dr, 75 MG PO BID Prescribed by: JUSTA CARDENAS on 10/02/19 2136 Dicyclomine HCl (Dicyclomine HCl) 20 Mg Tablet, 20 MG PO QID PRN for abdominal pain/cramping Prescribed by: ELIZABETH ESTEVEZ on 02/06/21 1707 Dolutegravir Sodium (Tivicay) 50 Mg Tablet, 50 MG PO HS, (Reported) Entered as Reported by: CAMILA MARTÍNEZ on 07/19/18 1504 Doxycycline Hyclate (Doxycycline Hyclate) 100 Mg Tablet, 100 MG PO BID Prescribed by: RENA FRANKLIN on 08/24/21 1651 Emtricitabine/Tenofov Alafenam (Descovy 200-25 mg Tablet) 1 Each Tablet, 1 TAB PO HS, (Reported) Entered as Reported by: CAMILA MARTÍNEZ on 07/19/18 1504 Estradiol (Estradiol Tablet) 2 Mg Tablet, 2 MG PO DAILY, (Reported) Entered as Reported by: CAMILA MARTÍNEZ on 07/19/18 1504 Fluconazole (Diflucan) 150 Mg Tablet, 150 MG PO UD Prescribed by: JEFFERY PEREZ on 03/04/21 1152 Furosemide (Furosemide) 40 Mg Tablet, 40 MG PO DAILY, (Reported) Entered as Reported by: CAMILA MARTÍNEZ on 07/19/18 1504 Hydrocodone Bit/Acetaminophen (HYDROcodone/APAP 10/325 TABLET) 1 Each Tablet, 1 TAB PO TID PRN for PAIN-MODERATE, (Reported) Entered as Reported by: ANNEMARIE ROGERS on 09/17/18 0914 Hydrocodone Bit/Acetaminophen (Lortab 7.5 Mg Tablet) 1 Ea Tablet, 1 EACH PO Q6H PRN for BREAK THRU FOOT PAIN Prescribed by: SABRINA FRANCO on 11/25/18 1723 Hydrocodone/Acetaminophen (Hydrocodone-Acetamin 5-325 mg) 1 Each Tablet, 1 TAB PO Q6H PRN for PAIN-SEVERE (8-10) Prescribed by: ELIZABETH ESTEVEZ on 06/28/20 1820 Hydrocodone/Acetaminophen (Hydrocodone-Acetamin 5-325 mg) 1 Each Tablet, 1 TAB PO Q6H PRN for PAIN-MODERATE (5-7) Prescribed by: ROXIE RIVERA on 10/03/20 1215 Hydrocodone/Acetaminophen (Hydrocodone-Acetamin 10-325 mg) 1 Each Tablet, 1 EACH PO Q8H PRN for PAIN-SEVERE (8-10) Prescribed by: ELIZAEBTH ESTEVEZ on 02/06/21 1708 Insulin Aspart (Novolog) 100 Unit/1 Ml Susp, PER INSULIN PUMP, (Reported) Entered as Reported by: CAMILA MARTÍNEZ on 07/19/18 1504 Lisinopril (Lisinopril) 5 Mg Tablet, 5 MG PO HS, (Reported) Entered as Reported by: CAMILA MARTÍNEZ on 07/19/18 1504 Lisinopril (Lisinopril) 2.5 Mg Tablet, 2.5 MG PO DAILY, (Reported) Entered as Reported by: ANNEMARIE ROGERS on 09/17/18 0914 Metformin HCl (Metformin HCl ER) 500 Mg Tab.er.24h, 1,000 MG PO BID, (Reported) Entered as Reported by: CAMILA MARTÍNEZ on 07/19/18 1504 Metoprolol Tartrate (Metoprolol Tartrate) 25 Mg Tablet, 25 MG PO BID, (Reported) Entered as Reported by: CAMILA MARTÍNEZ on 07/19/18 1504 Metronidazole (Metronidazole) 500 Mg Tablet, 500 MG PO BID Prescribed by: ELIZABETH ESTEVEZ on 06/28/20 1819 Mupirocin (Mupirocin) 22 Gm Oint...g., 22 GM TP BID Prescribed by: BRETT BRADEN on 12/07/20 1101 Mupirocin Calcium (Mupirocin) 15 Gm Cream..g., 15 GM TP BID Prescribed by: JEFFERY PEREZ on 03/04/21 1152 Omeprazole (Omeprazole) 40 Mg Capsule.dr, 40 MG PO DAILY, (Reported) Entered as Reported by: ANNEMARIE ROGERS on 09/17/18 09 Ondansetron (Ondansetron Odt) 8 Mg Tab.rapdis, 8 MG PO Q4H PRN for NAUSEA/VOMITING-1ST LINE, (Reported) Entered as Reported by: ANNEMARIE ROGERS on 09/17/18913 Ondansetron (Ondansetron Odt) 4 Mg Tab.rapdis, 4 MG PO Q6H PRN for NAUSEA/VO MITING Prescribed by: ELIZABETH ESTEVEZ on 02/06/21 1708 Ondansetron (Ondansetron Odt) 4 Mg Tab.rapdis, 4 MG PO Q6H Prescribed by: BRETT BRADEN on 07/19/21 151 Oxycodone HCl/Acetaminophen (Percocet 5-325 mg Tablet) 1 Each Tablet, 1 TAB PO Q4H Prescribed by: BRETT BRADEN on 12/07/20 220 Oxycodone HCl/Acetaminophen (Percocet 5-325 mg Tablet) 1 Each Tablet, 1 TAB PO Q4H Prescribed by: BRETT BRADEN on 12/07/20 220 Oxycodone HCl/Acetaminophen (Percocet 5-325 mg Tablet) 1 Each Tablet, 1 TAB PO Q4H Prescribed by: BRETT BRADEN on 12/07/20 1759 Pregabalin (Lyrica) 75 Mg Capsule, 75 MG PO DAILY, (Reported) Entered as Reported by: CAMILA MARTÍNEZ on 07/19/18 1504 Pregabalin (Lyrica) 75 Mg Capsule, 150 MG PO HS, (Reported) Entered as Reported by: ANNEMARIE ROGERS on 09/17/18913 Sucralfate (Sucralfate) 1 Gm Tablet, 1 GM PO ACHS PRN for INDIGESTION, (Reported) Entered as Reported by: ANNEMARIE ROGERS on 09/17/18913 Sulfamethoxazole/Trimethoprim (Sulfamethoxazole-Tmp Ds Tablet) 1 Each Tablet, 1 EACH PO BID Prescribed by: MALLORIE LAWS on 03/08/19 1705 Sulfamethoxazole/Trimethoprim (Bactrim Ds Tablet) 1 Each Tablet, 1 EACH PO BID Prescribed by: ROXIE RIVERA on 10/03/20 1215 Sulfamethoxazole/Trimethoprim (Bactrim Ds Tablet) 1 Each Tablet, 1 EACH PO BID Prescribed by: JEFFERY PEREZ on 03/04/21 1152 Sulfamethoxazole/Trimethoprim (Bactrim Ds Tablet) 1 Each Tablet, 1 EACH PO BID Prescribed by: BRETT BRADEN on 03/15/21 1221 Review of Systems Review of Systems Constitutional: No chills, No fever EENTM: No blurred vision Respiratory: No cough Cardiovascular: No chest pain Gastrointestinal: No abdominal pain Genitourinary: no symptoms reported Musculoskeletal: no symptoms reported Skin: rash Psychiatric/Neurological: No Symptoms Reported Endocrine: No Symptoms Reported Hematologic/Lymphatic: No Symptoms Reported All Other Systems Reviewed Negative Unless Noted: Yes Past Thcisek-Sizkpq-Pqfmnc Hx Patient Social History Tobacco Use?: Yes Tobacco type used: Cigarettes Smoking Status: Current Everyday Smoker Use of E-Cig and/or Vaping dev: No Substance use?: Yes Substance type: Marijuana Alcohol Use?: No Pt feels they are or have been: Unable to obtain Immunizations Up To Date Third COVID19 Vaccination Date: 02/18/2021 Seasonal Allergies Seasonal Allergies: No Past Medical History Surgery/Hospitalization HX: HIV Surgeries: Yes Coronary Stent, Eye Surgery, Gallbladder, Hysterectomy, Tubal Ligation Respiratory: Yes Asthma, COPD Cardiac: Yes Heart Attack, High Cholesterol, Hypertension Neurological: Yes (psuedoseizure when really stressed out) Seizure Disorder 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 Sexually Transmitted Disease: No HIV/AIDS: Yes Genitourinary: No Gastrointestinal: Yes Hepatitis Musculoskeletal: Yes (patient reports herniated, bulging cervical discs) Arthritis Endocrine: Yes Diabetes, Insulin dep HEENT: Yes Eye Injury Loss of Vision: Left Cancer: No Psychosocial: Yes Anxiety, Depression Integumentary: No Blood Disorders: Yes (Hep C, HIV) Adverse Reaction/Blood Tranf: No Family Medical History Cardiovascular disease 19 FATHER 19 MOTHER Diabetes mellitus 19 FATHER FH: lung disease 19 MOTHER Heart Disease, Diabetes, Hypertension Physical Exam Vital Signs Vital Signs - First Documented 08/24/21 16:38 Temp 36.9 Pulse 121 Resp 20 B/P (MAP) 149/90 (109) Pulse Ox 98 O2 Delivery Room Air Capillary Refill : General Appearance: WD/WN, no apparent distress HEENT: PERRL/EOMI, normal ENT inspection, pharynx normal Neck: non-tender, full range of motion, supple, normal inspection Cardiovascular: regular rate, rhythm, no edema, no murmur Respiratory: chest non-tender, lungs clear, normal breath sounds, no respiratory distress, no accessory muscle use Gastrointestinal: normal bowel sounds, non tender, soft; No distended, No guarding Back: normal inspection Extremities: normal range of motion, non-tender, normal inspection, no pedal edema, no calf tenderness, normal capillary refill Neurologic/Psychiatric: no motor/sensory deficits, alert, normal mood/affect Skin: normal color, warm/dry Skin Problem Location: other (left hand erythema overlying the 2-3 metacarpals, no open lesion or purulence, fluctuance and abscess noted) Lymphatic: no adenopathy Procedures/Interventions I&D : Site: left hand Blade Size: 11 I & D Procedure: betadine prep Progress Lidocaine with epinephrine used for anesthesia with a total of 2 cc used. A single stab incision with moderate amount of purulent drainage. Wound left open with sterile dressing Progress/Results/Core Measures Results/Orders My Orders Orders - RENA FRANKLIN MD Doxycycline Hyclate Tablet (Vibramycin T (08/24/21 16:47) Cephalexin Capsule (Keflex Capsule) (08/24/21 16:47) Vital Signs/I&O 08/24/21 16:38 Temp 36.9 Pulse 121 Resp 20 B/P (MAP) 149/90 (109) Pulse Ox 98 O2 Delivery Room Air Progress Progress Note : Progress Note 46-year-old female with above history coming in due to an abscess and cellulitis on her left hand. It was incised and drained and she will be given antibiotics for the cellulitis. We will have her follow-up with her PCP in the next couple days to ensure its improving. Departure Impression Primary Impression: Cellulitis and abscess of hand Disposition: HOME, SELF-CARE Condition: Stable Departure-Patient Inst. Decision time for Depature: 17:10 Referrals: REGINO LOCKETT MD (PCP/Family) Primary Care Physician Patient Instructions: Abscess Incision and Drainage, Cellulitis (Skin Infection), Adult ED Add. Discharge Instructions: You will take antibiotics for the next 10 days. It will be 2 different antibiotics. Follow-up with your regular doctor in the next 3 days for wound check. Take ibuprofen and tylenol for pain. Scripts Cephalexin (Cephalexin) 500 Mg Tablet 500 MG PO QID for 10 Days, #40 TAB Prov: RENA FRANKLIN MD 08/24/21 Doxycycline Hyclate (Doxycycline Hyclate) 100 Mg Tablet 100 MG PO BID for 10 Days, #20 TAB 0 Refills Prov: RENA FRANKLIN MD 08/24/21 Work/School Note: Work Release Form Date Seen in the Emergency Department: Aug 24, 2021 Return to Work: Aug 25, 2021 Restrictions: No Restrictions RENA FRANKLIN MD Aug 24, 2021 16:40
[2021-08-24] MEDS ORDERED: CEPHALEXIN 250 MG (KEFLEX) CAP PO STA (16:47)
[2021-08-24] MEDS ORDERED: DOXYCYCLINE 100 MG (VIBRAMYCIN) TABLET PO STA (16:47)
[2021-08-24] MEDS ORDERED: CEPH500T PO (16:51)
[2021-08-24] MEDS ORDERED: DOXY100T2 PO (16:51)
== END 2021-08-24 17:05 | disposition home or self-care (01) ==
LOC: EDUNIT# 16:25 → ER FS 16:26
DX: L03.114 Cellulitis of left upper limb (principal); L02.512 Cutaneous abscess of left hand; F17.210 Nicotine dependence, cigarettes, uncomplicated
CPT/HCPCS: 99283

== ENCOUNTER 2022-01-15 21:24 | Emergency (ER) | payer BC ==
[~2022-01-15 21:24] MED LIST changes: +BUPR-105 PO; -BUPR150T14 PO; +CEPH500T PO; +DOXY100T2 PO
[2022-01-15] MEDS ORDERED: ONDANSETRON 4 MG (ZOFRAN) ORAL DISSOLVE TAB PO STA (21:36)
[2022-01-15] MEDS ORDERED: ORPHENADRINE 60 MG/2 ML (NORFLEX) AMP (ED ONLY) IM STA (21:36)
[2022-01-15] MEDS ORDERED: KETOROLAC 60 MG/2 ML VIAL IM STA (21:36)
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
[2022-01-15 22:02] LABS: BILIRUBIN,URINE NEGATIVE (NEGATIVE); CLARITY,URINE CLEAR; COLOR,URINE YELLOW; GLUCOSE, URINE (UA) 3+ (NEGATIVE); KETONES,URINE NEGATIVE (NEGATIVE); LEUKOCYTE ESTERASE ,URINE NEGATIVE (NEGATIVE); NITRITE,URINE NEGATIVE (NEGATIVE); PH,URINE 6.5 (5-9); PROTEIN,URINE NEGATIVE (NEGATIVE)
[2022-01-15 22:07] LABS: BACTERIA,URINE TRACE /HPF; WBC,URINE 0-2 /HPF
[2022-01-15 22:12] LABS: AMPHETAMINE SCREEN, URINE NEGATIVE (NEGATIVE); BARBITURATE SCREEN URINE NEGATIVE (NEGATIVE); BENZODIAZEPINES SCREEN URINE NEGATIVE (NEGATIVE); CANNABINOID SCREEN, URINE POSITIVE (NEGATIVE); COCAINE SCREEN URINE NEGATIVE (NEGATIVE); METHADONE STAT NEGATIVE (NEGATIVE); OPIATE SCREEN URINE NEGATIVE (NEGATIVE); OXYCODONE STAT NEGATIVE (NEGATIVE); PROPOXYPHENE STAT NEGATIVE (NEGATIVE); TRICYCLIC ANTIDEPRESSANTS SCRE NEGATIVE (NEGATIVE)
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
[2022-01-15] MEDS ORDERED: ONDA4TAB11 PO (22:52)
[2022-01-15] MEDS ORDERED: IBUP-1780 PO (22:52)
[2022-01-15] MEDS ORDERED: METH-732 PO (22:52)
[2022-01-15 22:53] VITALS: BP 171/88
[2022-01-15] MEDS ORDERED: RX-ONDANSETRON 4 MG ODT (ZOFRAN) PPK #4 PO PRN (23:15)
== END 2022-01-15 23:06 | disposition home or self-care (01) ==
LOC: EDUNIT# 21:24 → ER FS 21:27
DX: S16.1XXA Strain of muscle, fascia and tendon at neck level, initial encounter (principal); S29.019A Strain of muscle and tendon of unspecified wall of thorax, initial encounter; S39.012A Strain of muscle, fascia and tendon of lower back, initial encounter; M54.12 Radiculopathy, cervical region; R11.0 Nausea; R82.998 Other abnormal findings in urine; F17.210 Nicotine dependence, cigarettes, uncomplicated; Z88.5 Allergy status to narcotic agent; V89.2XXA Person injured in unspecified motor-vehicle accident, traffic, initial encounter; Y92.410 Unspecified street and highway as the place of occurrence of the external cause
CPT/HCPCS: 70450; 71250; 72125; 74176; 80306; 81000

== ENCOUNTER 2022-01-30 12:08 | Emergency (ER) | payer BC ==
[~2022-01-30] VITALS: Ht 160 cm; Wt 80.2 kg
[~2022-01-30 12:08] MED LIST changes: +IBUP-1780 PO; +METH-732 PO
--- NOTE | 2022-01-30 12:26 | ED Psychosocial ---
General Chief Complaint: Psych/Social Disorder Stated Complaint: PSYCH EVAL Source: patient (ELIZABETH ESTEVEZ MD) History of Present Illness Date Seen by Provider: Jan 30, 2022 Time Seen by Provider: 12:11 Initial Comments 46-year-old female presenting with complaints of hearing voices and feeling suicidal. She states the voices are telling her to kill herself and that she is worthless. She has had longstanding problems with hearing voices and suicidal ideation. She states her plan currently is to walk out in front of a truck or overdose on methamphetamines. She last used methamphetamines yesterday. She reached out for help today because of her thoughts of hurting herself. She states that she feels like she would be better off because no one wants her around. Timing/Duration: getting worse Severity: severe Associated Symptoms: anxiety, impaired concentration, suicidal ideation, other (Meth abuse) (ELIZABETH ESTEVEZ MD) Allergies and Home Medications Allergies Coded Allergies: hydromorphone (Verified Allergy, Unknown, b/p and oxygen level drop, 09/16/18) tramadol (Verified Allergy, Unknown, ANAPHYLAXIS, 09/16/18) Uncoded Allergies: air casts (Allergy, Unknown, 11/28/17) Patient Home Medication List Home Medication List Reviewed: Yes (ELIAZBETH ESTEVEZ MD) Albuterol Sulfate (Proair Hfa) 1 Puff Puff, 2 PUFF IH Q4H PRN for SHORTNESS OF BREATH, (Reported) Entered as Reported by: ANNEMARIE ROGERS on 06/28/18 1022 Aspirin (Aspirin EC) 81 Mg Tablet.dr, 81 MG PO HS, (Reported) Entered as Reported by: ANNEMARIE ROGERS on 06/28/18 1001 Atorvastatin Calcium (Atorvastatin Calcium) 40 Mg Tablet, 40 MG PO HS, (Reported) Entered as Reported by: ANNEMARIE ROGERS on 09/17/18 0914 Bupropion HCl (Bupropion HCl Sr) 150 Mg Tablet.er, 150 MG PO BID, (Reported) Entered as Reported by: CAMILA MARTÍNEZ on 07/19/18 1504 Cephalexin (Cephalexin) 500 Mg Tablet, 500 MG PO QID Prescribed by: RENA FRANKLIN on 08/24/21 1651 Chlorhexidine Gluconate (Hibiclens) 118 Ml Liquid, 118 ML TP ONCE Prescribed by: BRETT BRADEN on 12/07/20 1101 Clonazepam (Clonazepam) 1 Mg Tablet, 1 MG PO Q8H PRN for ANXIETY Prescribed by: ELIZABETH ESTEVEZ on 06/28/20 1820 Clopidogrel Bisulfate (Clopidogrel) 75 Mg Tablet, 75 MG PO HS, (Reported) Entered as Reported by: ANNEMARIE ROGERS on 06/28/18 1001 Cyclobenzaprine HCl (Cyclobenzaprine HCl) 10 Mg Tablet, 10 MG PO Q8H PRN for SPASMS Prescribed by: REBECCA GALARZA on 07/28/20 1742 Diclofenac Potassium (Diclofenac Potassium) 50 Mg Tablet, 50 MG PO TID Prescribed by: JAIME RUDOLPH on 02/17/19 1704 Diclofenac Sodium (Diclofenac Sodium) 75 Mg Tablet.dr, 75 MG PO BID Prescribed by: JUSTA CARDENAS on 10/02/19 2136 Dicyclomine HCl (Dicyclomine HCl) 20 Mg Tablet, 20 MG PO QID PRN for abdominal pain/cramping Prescribed by: ELIZABETH ESTEVEZ on 02/06/21 1707 Dolutegravir Sodium (Tivicay) 50 Mg Tablet, 50 MG PO HS, (Reported) Entered as Reported by: CAMILA MARTÍNEZ on 07/19/18 1504 Doxycycline Hyclate (Doxycycline Hyclate) 100 Mg Tablet, 100 MG PO BID Prescribed by: RENA FRANKLIN on 08/24/21 1651 Emtricitabine/Tenofov Alafenam (Descovy 200-25 mg Tablet) 1 Each Tablet, 1 TAB PO HS, (Reported) Entered as Reported by: CAMILA MARTÍNEZ on 07/19/18 1504 Estradiol (Estradiol Tablet) 2 Mg Tablet, 2 MG PO DAILY, (Reported) Entered as Reported by: CAMILA MARTÍNEZ on 07/19/18 1504 Fluconazole (Diflucan) 150 Mg Tablet, 150 MG PO UD Prescribed by: JEFFERY PEREZ on 03/04/21 1152 Furosemide (Furosemide) 40 Mg Tablet, 40 MG PO DAILY, (Reported) Entered as Reported by: CAMILA MARTÍNEZ on 07/19/18 1504 Hydrocodone Bit/Acetaminophen (HYDROcodone/APAP 10/325 TABLET) 1 Each Tablet, 1 TAB PO TID PRN for PAIN-MODERATE, (Reported) Entered as Reported by: ANNEMARIE ROGERS on 09/17/18 0914 Hydrocodone Bit/Acetaminophen (Lortab 7.5 Mg Tablet) 1 Ea Tablet, 1 EACH PO Q6H PRN for BREAK THRU FOOT PAIN Prescribed by: SABRINA FRANCO on 11/25/18 1723 Hydrocodone/Acetaminophen (Hydrocodone-Acetamin 5-325 mg) 1 Each Tablet, 1 TAB PO Q6H PRN for PAIN-SEVERE (8-10) Prescribed by: ELIZABETH ESTEVEZ on 06/28/20 1820 Hydrocodone/Acetaminophen (Hydrocodone-Acetamin 5-325 mg) 1 Each Tablet, 1 TAB PO Q6H PRN for PAIN-MODERATE (5-7) Prescribed by: ROXIE RIVERA on 10/03/20 1215 Hydrocodone/Acetaminophen (Hydrocodone-Acetamin 10-325 mg) 1 Each Tablet, 1 EACH PO Q8H PRN for PAIN-SEVERE (8-10) Prescribed by: ELIZABETH ESTEVEZ on 02/06/21 1708 Ibuprofen (Ibuprofen) 800 Mg Tablet, 800 MG PO Q8H PRN for PAIN Prescribed by: ELIZABETH ESTEVEZ on 01/15/22 2252 Insulin Aspart (Novolog) 100 Unit/1 Ml Susp, PER INSULIN PUMP, (Reported) Entered as Reported by: CAMILA MARTÍNEZ on 07/19/18 1504 Lisinopril (Lisinopril) 5 Mg Tablet, 5 MG PO HS, (Reported) Entered as Reported by: CAMILA MARTÍNEZ on 07/19/18 1504 Lisinopril (Lisinopril) 2.5 Mg Tablet, 2.5 MG PO DAILY, (Reported) Entered as Reported by: ANNEMARIE ROGERS on 09/17/18 09 Metformin HCl (Metformin HCl ER) 500 Mg Tab.er.24h, 1,000 MG PO BID, (Reported) Entered as Reported by: CAMILA MARTÍNEZ on 07/19/18 1504 Methocarbamol (Methocarbamol) 750 Mg Tablet, 1,500 MG PO Q8H PRN for MUSCLE SPASMS Prescribed by: ELIZABETH ESTEVEZ on 01/15/22 2252 Metoprolol Tartrate (Metoprolol Tartrate) 25 Mg Tablet, 25 MG PO BID, (Reported) Entered as Reported by: CAMILA MARTÍNEZ on 07/19/18 1504 Metronidazole (Metronidazole) 500 Mg Tablet, 500 MG PO BID Prescribed by: ELIZABETH ESTEVEZ on 06/28/20 1819 Mupirocin (Mupirocin) 22 Gm Oint...g., 22 GM TP BID Prescribed by: BRETT BRADEN on 12/07/20 1101 Mupirocin Calcium (Mupirocin) 15 Gm Cream..g., 15 GM TP BID Prescribed by: JEFFERY PEREZ on 03/04/21 1152 Omeprazole (Omeprazole) 40 Mg Capsule.dr, 40 MG PO DAILY, (Reported) Entered as Reported by: ANNEMARIE ROGERS on 09/17/18 0914 Ondansetron (Ondansetron Odt) 8 Mg Tab.rapdis, 8 MG PO Q4H PRN for NAUSEA/VOMITING-1ST LINE, (Reported) Entered as Reported by: ANNEMARIE ROGERS on 09/17/18 0914 Ondansetron (Ondansetron Odt) 4 Mg Tab.rapdis, 4 MG PO Q6H PRN for NAUSEA/VOMITING Prescribed by: ELIZABETH ESTEVEZ on 02/06/21 1708 Ondansetron (Ondansetron Odt) 4 Mg Tab.rapdis, 4 MG PO Q6H Prescribed by: BRETT BRADEN on 07/19/21 1519 Ondansetron (Ondansetron Odt) 4 Mg Tab.rapdis, 4 MG PO Q6H PRN for NAUSEA/VOMITING Prescribed by: ELIZABETH ESTEVEZ on 01/15/22 2252 Oxycodone HCl/Acetaminophen (Percocet 5-325 mg Tablet) 1 Each Tablet, 1 TAB PO Q4H Prescribed by: BRETT BRADEN on 12/07/202208 Oxycodone HCl/Acetaminophen (Percocet 5-325 mg Tablet) 1 Each Tablet, 1 TAB PO Q4H Prescribed by: BRETT BRADEN on 12/07/202208 Oxycodone HCl/Acetaminophen (Percocet 5-325 mg Tablet) 1 Each Tablet, 1 TAB PO Q4H Prescribed by: BRETT BRADEN on 12/07/20 1759 Pregabalin (Lyrica) 75 Mg Capsule, 75 MG PO DAILY, (Reported) Entered as Reported by: CAMILA MARTÍNEZ on 07/19/18 1504 Pregabalin (Lyrica) 75 Mg Capsule, 150 MG PO HS, (Reported) Entered as Reported by: ANNEMARIE ROGERS on 09/17/18 0914 Sucralfate (Sucralfate) 1 Gm Tablet, 1 GM PO ACHS PRN for INDIGESTION, (Reported) Entered as Reported by: ANNEMARIE ROGERS on 09/17/18 0914 Sulfamethoxazole/Trimethoprim (Sulfamethoxazole-Tmp Ds Tablet) 1 Each Tablet, 1 EACH PO BID Prescribed by: MALLORIE LAWS on 03/08/19 1705 Sulfamethoxazole/Trimethoprim (Bactrim Ds Tablet) 1 Each Tablet, 1 EACH PO BID Prescribed by: ROXIE RIVERA on 10/03/20 1215 Sulfamethoxazole/Trimethoprim (Bactrim Ds Tablet) 1 Each Tablet, 1 EACH PO BID Prescribed by: JEFFERY PEREZ on 03/04/21 1152 Sulfamethoxazole/Trimethoprim (Bactrim Ds Tablet) 1 Each Tablet, 1 EACH PO BID Prescribed by: BRETT BRADEN on 03/15/21 1221 Review of Systems Constitutional: No chills, No fever EENTM: no symptoms reported Respiratory: no symptoms reported Cardiovascular: no symptoms reported Gastrointestinal: no symptoms reported Genitourinary: decreased output Musculoskeletal: no symptoms reported Skin: lesions (multiple sores on arms and legs from picking after methamphetamine abuse) Psychiatric/Neurological: Anxiety, Depressed, Emotional Problems, Other (hearing voices telling her to hurt herself) (ELIZABETH ESTEVEZ MD) Past Oinzojj-Qyhode-Oyvxsc Hx Patient Social History Tobacco Use?: No Smoking Status: Never a Smoker Smokeless Tobacco Frequency: Never a User Use of E-Cig and/or Vaping dev: No Use of E-Cig and/or Vaping Gerber: Never a User Substance use?: Yes Substance type: Methamphetamine, Marijuana Substance frequency: Daily Alcohol Use?: No Pt feels they are or have been: No (ELIZABETH ESTEVEZ MD) Immunizations Up To Date Third COVID19 Vaccination Date: 02/18/2021 (ELIZABETH ESTEVEZ MD) Seasonal Allergies Seasonal Allergies: No (ELIZABETH ESTEVEZ MD) Past Medical History Surgery/Hospitalization HX: HIV, Methamphetamine abuse Surgeries: Yes Coronary Stent, Eye Surgery, Gallbladder, Hysterectomy, Tubal Ligation Respiratory: Yes Asthma, COPD Cardiac: Yes Heart Attack, High Cholesterol, Hypertension Neurological: Yes (psuedoseizure when really stressed out) Seizure Disorder 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 Disorders: Yes FUNDER History: Hysterectomy Sexually Transmitted Disease: No HIV/AIDS: Yes Genitourinary: No Gastrointestinal: Yes Hepatitis Musculoskeletal: Yes (patient reports herniated, bulging cervical discs) Arthritis Endocrine: Yes Diabetes, Insulin dep HEENT: Yes Eye Injury Loss of Vision: Left Cancer: No Psychosocial: Yes Anxiety, Depression Integumentary: No Blood Disorders: Yes (Hep C, HIV) Adverse Reaction/Blood Tranf: No (ELIZABETH ESTEVEZ MD) Family Medical History Cardiovascular disease 19 FATHER 19 MOTHER Diabetes mellitus 19 FATHER FH: lung disease 19 MOTHER Heart Disease, Diabetes, Hypertension (ELIZABETH ESTEVEZ MD) Physical Exam Vital Signs - First Documented 01/30/22 12:09 Temp 36.0 Pulse 82 Resp 14 B/P (MAP) 141/84 (103) O2 Delivery Room Air (CHAPARRO MCGUIRE) Capillary Refill : (ELIZABETH ESTEVEZ MD) Height, Weight, BMI Height: 5'5.00" Weight: 219lbs. 3.0oz. 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, alert, oriented x 3, depressed affect Appearance/Memory: disheveled Behavior/Eye Contact: cooperative, avoids eye contact, increased rate of speech Thoughts/Hallucinations: auditory hallucinations, paranoid Skin: warm/dry, other (multiple sores/lesions on arms, legs and face from picking at her skin after methamphetamine abuse) (ELIZABETH ESTEVEZ MD) Progress/Results/Core Measures Results/Orders Lab Results Laboratory Tests Test 01/30/22 12:35 01/30/22 13:16 01/30/22 13:38 Range/Units White Blood Count 9.7 4.3-11.0 10^3/uL Red Blood Count 4.60 3.80-5.11 10^6/uL Hemoglobin 13.4 11.5-16.0 g/dL Hematocrit 40 35-52 % Mean Corpuscular Volume 86 80-99 fL Mean Corpuscular Hemoglobin 29 25-34 pg Mean Corpuscular Hemoglobin Concent 34 32-36 g/dL Red Cell Distribution Width 12.4 10.0-14.5 % Platelet Count 297 130-400 10^3/uL Mean Platelet Volume 10.9 9.0-12.2 fL Immature Granulocyte % (Auto) 0 % Neutrophils (%) (Auto) 63 42-75 % Lymphocytes (%) (Auto) 28 12-44 % Monocytes (%) (Auto) 6 0-12 % Eosinophils (%) (Auto) 2 0-10 % Basophils (%) (Auto) 1 0-10 % Neutrophils # (Auto) 6.1 1.8-7.8 10^3/uL Lymphocytes # (Auto) 2.7 1.0-4.0 10^3/uL Monocytes # (Auto) 0.6 0.0-1.0 10^3/uL Eosinophils # (Auto) 0.2 0.0-0.3 10^3/uL Basophils # (Auto) 0.1 0.0-0.1 10^3/uL Immature Granulocyte # (Auto) 0.0 0.0-0.1 10^3/uL Sodium Level 138 135-145 MMOL/L Potassium Level 3.8 3.6-5.0 MMOL/L Chloride Level 99 98-107 MMOL/L Carbon Dioxide Level 26 21-32 MMOL/L Anion Gap 13 5-14 MMOL/L Blood Urea Nitrogen 7 7-18 MG/DL Creatinine 0.40 L 0.60-1.30 MG/DL Estimat Glomerular Filtration Rate 124 BUN/Creatinine Ratio 18 Glucose Level 304 H 70-105 MG/DL Calcium Level 9.5 8.5-10.1 MG/DL Corrected Calcium 9.6 8.5-10.1 MG/DL Total Bilirubin 0.3 0.1-1.0 MG/DL Aspartate Amino Transf (AST/SGOT) 10 5-34 U/L Alanine Aminotransferase (ALT/SGPT) 11 0-55 U/L Alkaline Phosphatase 106 40-136 U/L Total Protein 7.3 6.4-8.2 GM/DL Albumin 3.9 3.2-4.5 GM/DL Serum Test, Qualitative NEGATIVE NEGATIVE Salicylates Level < 0.3 L 5.0-20.0 MG/DL Acetaminophen Level < 10 L 10-30 UG/ML Serum Alcohol < 10 <10 MG/DL SARS-CoV-2 RNA (RT-PCR) Not Detected Not Detecte Urine Color YELLOW Urine Clarity SL CLOUDY Urine pH 5.5 5-9 Urine Specific [place] 1.025 H 1.016-1.022 Urine Protein NEGATIVE NEGATIVE Urine Glucose (UA) 3+ H NEGATIVE Urine Ketones NEGATIVE NEGATIVE Urine Nitrite NEGATIVE NEGATIVE Urine Bilirubin NEGATIVE NEGATIVE Urine Urobilinogen 0.2 < = 1.0 MG/DL Urine Leukocyte Esterase NEGATIVE NEGATIVE Urine RBC (Auto) NEGATIVE NEGATIVE Urine RBC NONE /HPF Urine WBC 2-5 /HPF Urine Squamous Epithelial Cells 10-25 H /HPF Urine Crystals NONE /LPF Urine Bacteria MODERATE H /HPF Urine Casts NONE /LPF Urine Mucus SMALL H /LPF Urine Culture Indicated NO Urine Opiates Screen NEGATIVE NEGATIVE Urine Oxycodone Screen NEGATIVE NEGATIVE Urine Methadone Screen NEGATIVE NEGATIVE Urine Propoxyphene Screen NEGATIVE NEGATIVE Urine Barbiturates Screen NEGATIVE NEGATIVE Ur Tricyclic Antidepressants Screen NEGATIVE NEGATIVE Urine Phencyclidine Screen NEGATIVE NEGATIVE Urine Amphetamines Screen POSITIVE H NEGATIVE Urine Methamphetamines Screen POSITIVE H NEGATIVE Urine Benzodiazepines Screen NEGATIVE NEGATIVE Urine Cocaine Screen POSITIVE H NEGATIVE Urine Cannabinoids Screen POSITIVE H NEGATIVE Group A Streptococcus Screen NEGATIVE NEGATIVE (CHAPARRO MCGUIRE) Micro Results Microbiology 01/30/22 Throat Culture - Final, Complete Strep, Beta Hemolytic Group B (CHAPARRO MCGUIRE) Progress Progress Note #1: Progress Note Obtain mental health screening after medical evaluation with labs and urinalysis. Encourage drinking of fluids to help facilitate obtaining a urine specimen. Keep under psychiatric watch with every 15 minute checks. Progress Note #2: Progress Note CBC and chemistry without acute significant abnormality. Her urinalysis does s how Epithelial cells and bacteria with white blood cells so she likely has a contaminated specimen and not a UTI since she has no Nitrites or Leukocyte Esterase. Her alcohol, salicylate, acetaminophen levels are all negative. Her urine drug screen showed a the amphetamines and methamphetamines that she admitted to using as well as marijuana which she states that she uses. It also showed cocaine which she later stated that she had forgot that she had used it as well. Her COVID swab was negative. She was complaining of having her eyes matted shut this morning and having a sore throat so a rapid strep swab was added on. She has some mild erythema to her throat but no pus pockets. She states that she is prone to getting infections and usually if she starts having any matting she uses medication prescribed from urgent care previously. Progress Note #3: Time: 14:00 Progress Note Rapid strep swab negative. With her concern for eye matting this am will prescribe Tobramycin eye ointment to be used TID for her concern for eye infection. Medically cleared and stable for mental health evaluation. Progress Note #4: Time: 15:[address] [facility] recommends placement for the patient and states they will work on locating inpatient psychiatric services. Patient agreeable wi th plan and asking for something to eat and drink. Will await placement by Mental Health. Progress Note #5: Time: 07:00 Progress Note Patient continued to be calm and cooperative while awaiting inpatient psyc hiatric placement. Will pass care to Dr. Mcguire at 7 am on 31 Jan 2022. (ELIZABETH ESTEVEZ MD) Progress Note #1: Progress Note Assumed care of the patient at shift change. She has been up to the bathroom, been eating, drinking and generally pleasant per staff overnight. [facility] is working on placement. Nursing staff will call and check on updates shortly. I agree with the above documented history and physical exam. The patient is medically cleared for placement inpatient and she is still voluntary to go. Progress Note #2: Time: 17:24 Progress Note We have kept in touch with [facility] throughout the day. The patient has been up going to the bathroom and getting fed. One-on-one sitter has been present. Her concerns have all been addressed. [facility] advises now that they want us to fax over information to [place], [place], [facility] and [facility]. The other places that they were looking at previously did not have any vacancies. Patient has been calm, easily distractible and resting comfortably in her bed. (CHAPARRO MCGUIRE) Progress Note #1: Time: 22:29 Progress Note Care of this patient was assumed from Dr. Mcguire at shift change. Patient was tentatively accepted for transfer to [facility]. During the interview with a [facility] escrow representative, she became upset and refused to speak with him any further. I tried to console her so that she would resume the interview. She refuses. We are still trying to work with the patient to accomplish the interview. Patient request something for indigestion. Pepcid was ordered. Progress Note #2: Time: 06:32 Progress Note Patient ultimately refused admission at [facility] and would not speak with staff for their interview. [facility] was notified. They will try to find alternative placement this morning. Patient's home medications were reviewed, and nursing staff was advised to give her these medications this morning. (JEFFERY OLEARY MD) Initial ECG Impression Date: Jan 30, 2022 Initial ECG Impression Time: 13:38 Initial ECG Rate: 80 Initial ECG Rhythm: Normal Sinus Initial ECG Comparisson: Unchanged Comment Sinus rhythm with a heart rate of 80 bpm. [place] interval [address] elevation. There are Q waves in the inferior and anterolateral leads. QT interval 370 ms with a QTc interval 405 ms. Overall appears similar to prior tracings in the system. (ELIZABETH ESTEVEZ MD) Departure Impression Primary Impression: Suicidal ideation Additional Impressions: Methamphetamine abuse Auditory hallucinations Cocaine abuse Disposition: 30 STILL A PATIENT Condition: Stable Departure-Patient Inst. Referrals: REGINO LOCKETT MD (PCP) Primary Care Physician ELIZABETH ESTEVEZ MD Jan 30, 2022 12:26 CHAPARRO MCGUIRE Jan 31, 2022 07:52 JEFFERY OLEARY MD Jan 31, 2022 22:31
[2022-01-30 12:46] LABS: BASOPHILS # (AUTO) 0.1 10^3/uL (0.0-0.1); BASOPHILS % (AUTO) 1 % (0-10); EOSINOPHILS # (AUTO) 0.2 10^3/uL (0.0-0.3); EOSINOPHILS % (AUTO) 2 % (0-10); HEMATOCRIT 40 % (35-52); HEMOGLOBIN 13.4 g/dL (11.5-16.0); LYMPHOCYTES # (AUTO) 2.7 10^3/uL (1.0-4.0); LYMPHOCYTES % (AUTO) 28 % (12-44); MEAN CORPUSCULAR HEMOGLOBIN 29 pg (25-34); MEAN CORPUSCULAR HGB CONC 34 g/dL (32-36); MEAN CORPUSCULAR VOLUME 86 fL (80-99); MEAN PLATELET VOLUME 10.9 fL (9.0-12.2); MONOCYTES # (AUTO) 0.6 10^3/uL (0.0-1.0); MONOCYTES % (AUTO) 6 % (0-12); NEUTROPHILS # (AUTO) 6.1 10^3/uL (1.8-7.8); NEUTROPHILS % (AUTO) 63 % (42-75); PLATELET COUNT 297 10^3/uL (130-400); WHITE BLOOD COUNT 9.7 10^3/uL (4.3-11.0)
[2022-01-30 13:12] LABS: ALANINE AMINOTRANSFERASE 11 U/L (0-55); ALBUMIN 3.9 GM/DL (3.2-4.5); ALKALINE PHOSPHATASE 106 U/L (40-136); BILIRUBIN,TOTAL 0.3 MG/DL (0.1-1.0); BUN/CREATININE RATIO 18; CALCIUM 9.5 MG/DL (8.5-10.1); CARBON DIOXIDE 26 MMOL/L (21-32); CHLORIDE 99 MMOL/L (98-107); GFR ESTIMATED 124; GLUCOSE 304 MG/DL (70-105); POTASSIUM 3.8 MMOL/L (3.6-5.0); SODIUM 138 MMOL/L (135-145); TOTAL PROTEIN 7.3 GM/DL (6.4-8.2)
[2022-01-30 13:13] LABS: ACETAMINOPHEN < 10 UG/ML (10-30); SALICYLATE < 0.3 MG/DL (5.0-20.0)
[2022-01-30 13:22] LABS: BILIRUBIN,URINE NEGATIVE (NEGATIVE); COLOR,URINE YELLOW; GLUCOSE, URINE (UA) 3+ (NEGATIVE); KETONES,URINE NEGATIVE (NEGATIVE); LEUKOCYTE ESTERASE ,URINE NEGATIVE (NEGATIVE); NITRITE,URINE NEGATIVE (NEGATIVE); PH,URINE 5.5 (5-9); PROTEIN,URINE NEGATIVE (NEGATIVE)
[2022-01-30 13:29] LABS: BACTERIA,URINE MODERATE /HPF; CLARITY,URINE SL CLOUDY
[2022-01-30 13:34] LABS: AMPHETAMINE SCREEN, URINE POSITIVE (NEGATIVE); BARBITURATE SCREEN URINE NEGATIVE (NEGATIVE); BENZODIAZEPINES SCREEN URINE NEGATIVE (NEGATIVE); CANNABINOID SCREEN, URINE POSITIVE (NEGATIVE); COCAINE SCREEN URINE POSITIVE (NEGATIVE); METHADONE STAT NEGATIVE (NEGATIVE); OPIATE SCREEN URINE NEGATIVE (NEGATIVE); OXYCODONE STAT NEGATIVE (NEGATIVE); PROPOXYPHENE STAT NEGATIVE (NEGATIVE); TRICYCLIC ANTIDEPRESSANTS SCRE NEGATIVE (NEGATIVE)
[2022-01-30] MEDS ORDERED: RX-TOBRAMYCIN (TOBREX) 0.3% OP OINT 3.5 GM TUBE OU STA (13:58)
[2022-01-30] MEDS ORDERED: IBUPROFEN 800 MG (MOTRIN) TAB PO STA (21:23)
[2022-01-31] MEDS ORDERED: FAMOTIDINE 20 MG (PEPCID) TABLET PO ONE (22:30)
[2022-02-01] MEDS ORDERED: ONDANSETRON 4 MG (ZOFRAN) ORAL DISSOLVE TAB SL STA (01:42)
[2022-02-01] MEDS ORDERED: PANTOPRAZOLE 40 MG (PROTONIX) TAB PO ONE (01:45)
[2022-02-01 09:40] VITALS: BP 132/62
== END 2022-02-01 09:41 | disposition home or self-care (01) ==
LOC: EDUNIT# 12:08 → ER FS 12:10
DX: F15.10 Other stimulant abuse, uncomplicated (principal); F14.10 Cocaine abuse, uncomplicated; R45.851 Suicidal ideations; R44.0 Auditory hallucinations; E11.9 Type 2 diabetes mellitus without complications; Z20.822 Contact with and (suspected) exposure to COVID-19; Z28.310 Unvaccinated for COVID-19; Z79.4 Long term (current) use of insulin
CPT/HCPCS: 36415; 80053; 80306; 81000; 84703; 85025; 87430; 87636; 99283; G0480 ×3; 80320; 80329; 93005

== ENCOUNTER 2022-02-06 17:46 | Emergency (ER) | payer BC ==
[2022-02-06] MEDS ORDERED: AMOX500C2 PO (19:19)
[2022-02-06] MEDS ORDERED: AMOXICILLIN 500 MG (POLYMOX) CAP PO STA (19:20)
--- NOTE | 2022-02-06 19:20 | ED EENT ---
History of Present Illness General Chief Complaint: Oral/Throat Problems Stated Complaint: THROAT PAIN Nursing Triage Note: Patient presents to the ED with c/o sore throat. States throat pain and difficulty swallowing for the past 7 days. Was evaluated for strep and covid in the ED at the time of symptom onset and both tests were negative. Unable to drink or eat. Source: patient Exam Limitations: no limitations History of Present Illness Date Seen by Provider: Feb 06, 2022 Time Seen by Provider: 19:22 Initial Comments 46-year-old female presents for sore throat x7 days. She has painful swallowing but no difficulty swallowing. She is tolerating her own secretions. No fevers or chills. No nausea or vomiting. Allergies and Home Medications Allergies Coded Allergies: hydromorphone (Verified Allergy, Unknown, b/p and oxygen level drop, 09/16/18) tramadol (Verified Allergy, Unknown, ANAPHYLAXIS, 09/16/18) Uncoded Allergies: air casts (Allergy, Unknown, 11/28/17) Patient Home Medication List Home Medication List Reviewed: Yes Albuterol Sulfate (Proair Hfa) 1 Puff Puff, 2 PUFF IH Q4H PRN for SHORTNESS OF BREATH, (Reported) Entered as Reported by: ANNEMARIE ROGERS on 06/28/18 1022 Amoxicillin (Amoxicillin) 500 Mg Capsule, 500 MG PO BID Prescribed by: BALDEMAR AGUSTIN MD on 02/06/22 1919 Aspirin (Aspirin EC) 81 Mg Tablet.dr, 81 MG PO HS, (Reported) Entered as Reported by: ANNEMARIE ROGERS on 06/28/18 1001 Atorvastatin Calcium (Atorvastatin Calcium) 40 Mg Tablet, 40 MG PO HS, (Reported) Entered as Reported by: ANNEMARIE ROGERS on 09/17/18 0914 Bupropion HCl (Bupropion HCl Sr) 150 Mg Tablet.er, 150 MG PO BID, (Reported) Entered as Reported by: CAMILA MARTÍNEZ on 07/19/18 1504 Cephalexin (Cephalexin) 500 Mg Tablet, 500 MG PO QID Prescribed by: RENA FRANKLIN on 08/24/21 1651 Chlorhexidine Gluconate (Hibiclens) 118 Ml Liquid, 118 ML TP ONCE Prescribed by: BRETT BRADEN on 12/07/20 1101 Clonazepam (Clonazepam) 1 Mg Tablet, 1 MG PO Q8H PRN for ANXIETY Prescribed by: ELIZABETH ESTEVEZ on 06/28/20 1820 Clopidogrel Bisulfate (Clopidogrel) 75 Mg Tablet, 75 MG PO HS, (Reported) Entered as Reported by: ANNEMARIE ROGERS on 06/28/18 1001 Cyclobenzaprine HCl (Cyclobenzaprine HCl) 10 Mg Tablet, 10 MG PO Q8H PRN for SPASMS Prescribed by: REBECCA GALARZA on 07/28/20 1742 Diclofenac Potassium (Diclofenac Potassium) 50 Mg Tablet, 50 MG PO TID Prescribed by: JAIME RUDOLPH on 02/17/19 1704 Diclofenac Sodium (Diclofenac Sodium) 75 Mg Tablet.dr, 75 MG PO BID Prescribed by: JUSTA CARDENAS on 10/02/19 2136 Dicyclomine HCl (Dicyclomine HCl) 20 Mg Tablet, 20 MG PO QID PRN for abdominal pain/cramping Prescribed by: ELIZABETH ESTEVEZ on 02/06/21 1707 Dolutegravir Sodium (Tivicay) 50 Mg Tablet, 50 MG PO HS, (Reported) Entered as Reported by: CAMILA MARTÍNEZ on 07/19/18 1504 Doxycycline Hyclate (Doxycycline Hyclate) 100 Mg Tablet, 100 MG PO BID Prescribed by: RENA FRANKLIN on 08/24/21 1651 Emtricitabine/Tenofov Alafenam (Descovy 200-25 mg Tablet) 1 Each Tablet, 1 TAB PO HS, (Reported) Entered as Reported by: CAMILA MARTÍNEZ on 07/19/18 1504 Estradiol (Estradiol Tablet) 2 Mg Tablet, 2 MG PO DAILY, (Reported) Entered as Reported by: CAMILA MARTÍNEZ on 07/19/18 1504 Fluconazole (Diflucan) 150 Mg Tablet, 150 MG PO UD Prescribed by: JEFFERY PEREZ on 03/04/21 1152 Furosemide (Furosemide) 40 Mg Tablet, 40 MG PO DAILY, (Reported) Entered as Reported by: CAMILA MARTÍNEZ on 07/19/18 1504 Hydrocodone Bit/Acetaminophen (HYDROcodone/APAP 10/325 TABLET) 1 Each Tablet, 1 TAB PO TID PRN for PAIN-MODERATE, (Reported) Entered as Reported by: ANNEMARIE ROGERS on 09/17/18 0914 Hydrocodone Bit/Acetaminophen (Lortab 7.5 Mg Tablet) 1 Ea Tablet, 1 EACH PO Q6H PRN for BREAK THRU FOOT PAIN Prescribed by: SABRINA FRANCO on 11/25/18 1723 Hydrocodone/Acetaminophen (Hydrocodone-Acetamin 5-325 mg) 1 Each Tablet, 1 TAB PO Q6H PRN for PAIN-SEVERE (8-10) Prescribed by: ELIZABETH ESTEVEZ on 06/28/20 1820 Hydrocodone/Acetaminophen (Hydrocodone-Acetamin 5-325 mg) 1 Each Tablet, 1 TAB PO Q6H PRN for PAIN-MODERATE (5-7) Prescribed by: ROXIE RIVERA on 10/03/20 1215 Hydrocodone/Acetaminophen (Hydrocodone-Acetamin 10-325 mg) 1 Each Tablet, 1 EACH PO Q8H PRN for PAIN-SEVERE (8-10) Prescribed by: ELIZABETH ESTEVEZ on 02/06/21 1708 Ibuprofen (Ibuprofen) 800 Mg Tablet, 800 MG PO Q8H PRN for PAIN Prescribed by: ELIZABETH ESTEVEZ on 01/15/22 225 Insulin Aspart (Novolog) 100 Unit/1 Ml Susp, PER INSULIN PUMP, (Reported) Entered as Reported by: CAMILA MARTÍNEZ on 07/19/18 1504 Lisinopril (Lisinopril) 5 Mg Tablet, 5 MG PO HS, (Reported) Entered as Reported by: CAMILA MARTÍNEZ on 07/19/18 1504 Lisinopril (Lisinopril) 2.5 Mg Tablet, 2.5 MG PO DAILY, (Reported) Entered as Reported by: ANNEMARIE ROGERS on 09/17/18 0914 Metformin HCl (Metformin HCl ER) 500 Mg Tab.er.24h, 1,000 MG PO BID, (Reported) Entered as Reported by: CAMILA MARTÍNEZ on 07/19/18 1504 Methocarbamol (Methocarbamol) 750 Mg Tablet, 1,500 MG PO Q8H PRN for MUSCLE SPASMS Prescribed by: ELIZABETH ESTEVEZ on 01/15/22 225 Metoprolol Tartrate (Metoprolol Tartrate) 25 Mg Tablet, 25 MG PO BID, (Reported) Entered as Reported by: CAMILA MARTÍNEZ on 07/19/18 1504 Metronidazole (Metronidazole) 500 Mg Tablet, 500 MG PO BID Prescribed by: ELIZABETH ESTEVEZ on 06/28/20 1819 Mupirocin (Mupirocin) 22 Gm Oint...g., 22 GM TP BID Prescribed by: BRETT BRADEN on 12/07/20 1101 Mupirocin Calcium (Mupirocin) 15 Gm Cream..g., 15 GM TP BID Prescribed by: JEFFERY PEREZ on 03/04/21 1152 Omeprazole (Omeprazole) 40 Mg Capsule.dr, 40 MG PO DAILY, (Reported) Entered as Reported by: ANNEMARIE ROGERS on 09/17/18 0914 Ondansetron (Ondansetron Odt) 8 Mg Tab.rapdis, 8 MG PO Q4H PRN for NAUSEA/VOMITING-1ST LINE, (Reported) Entered as Reported by: ANNEMARIE ROGERS on 09/17/18 0914 Ondansetron (Ondansetron Odt) 4 Mg Tab.rapdis, 4 MG PO Q6H PRN for NAUSEA/VOMITING Prescribed by: ELIZABETH ESTEVEZ on 02/06/21 1708 Ondansetron (Ondansetron Odt) 4 Mg Tab.rapdis, 4 MG PO Q6H Prescribed by: BRETT BRADEN on 07/19/21 1519 Ondansetron (Ondansetron Odt) 4 Mg Tab.rapdis, 4 MG PO Q6H PRN for CARMENZA SEA/VOMITING Prescribed by: ELIZABETH ESTEVEZ on 01/15/22 2252 Oxycodone HCl/Acetaminophen (Percocet 5-325 mg Tablet) 1 Each Tablet, 1 TAB PO Q4H Prescribed by: BRETT BRADEN on 12/07/20 220 Oxycodone HCl/Acetaminophen (Percocet 5-325 mg Tablet) 1 Each Tablet, 1 TAB PO Q4H Prescribed by: BRETT BRADEN on 12/07/20 220 Oxycodone HCl/Acetaminophen (Percocet 5-325 mg Tablet) 1 Each Tablet, 1 TAB PO Q4H Prescribed by: BRETT BRADEN on 12/07/20 1759 Pregabalin (Lyrica) 75 Mg Capsule, 75 MG PO DAILY, (Reported) Entered as Reported by: CAMILA MARTÍNEZ on 07/19/18 1504 Pregabalin (Lyrica) 75 Mg Capsule, 150 MG PO HS, (Reported) Entered as Reported by: ANNEMARIE ROGERS on 09/17/18 0914 Sucralfate (Sucralfate) 1 Gm Tablet, 1 GM PO ACHS PRN for INDIGESTION, (Reported) Entered as Reported by: ANNEMARIE ROGERS on 09/17/18 0914 Sulfamethoxazole/Trimethoprim (Sulfamethoxazole-Tmp Ds Tablet) 1 Each Tablet, 1 EACH PO BID Prescribed by: MALLORIE LAWS on 03/08/19 1705 Sulfamethoxazole/Trimethoprim (Bactrim Ds Tablet) 1 Each Tablet, 1 EACH PO BID Prescribed by: ROXIE RIVERA on 10/03/20 1215 Sulfamethoxazole/Trimethoprim (Bactrim Ds Tablet) 1 Each Tablet, 1 EACH PO BID Prescribed by: JEFFERY PEREZ on 03/04/21 1152 Sulfamethoxazole/Trimethoprim (Bactrim Ds Tablet) 1 Each Tablet, 1 EACH PO BID Prescribed by: BRETT BRADEN on 03/15/21 1221 Review of Systems Review of Systems Constitutional: no symptoms reported Eyes: No Symptoms Reported Ears: No Symptoms Reported Nose: no symptoms reported Mouth: no symptoms reported Throat: pain Respiratory: no symptoms reported Cardiovascular: no symptoms reported Gastrointestinal: no symptoms reported Musculoskeletal: no symptoms reported Skin: no symptoms reported Neurological: No Symptoms Reported Hematologic/Lymphatic: No Symptoms Reported Immunological/Allergic: no symptoms reported Past Rtjzbrn-Qmekwx-Rusxaf Hx Patient Social History Tobacco Use?: Yes Tobacco type used: Cigarettes Smoking Status: Current Everyday Smoker Substance use?: Yes Substance type: Methamphetamine, Marijuana Alcohol Use?: No Pt feels they are or have been: No Immunizations Up To Date First/Initial COVID19 Vaccinat: 02/18/2021 Second COVID19 Vaccination Rene: 02/18/2021 Third COVID19 Vaccination Date: 02/18/2021 Seasonal Allergies Seasonal Allergies: No Past Medical History Surgery/Hospitalization HX: HIV, Methamphetamine abuse Surgeries: Yes Coronary Stent, Eye Surgery, Gallbladder, Hysterectomy, Tubal Ligation Respiratory: Yes Asthma, COPD Cardiac: Yes Heart Attack, High Cholesterol, Hypertension Neurological: Yes (psuedoseizure when really stressed out) Seizure Disorder 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 Disorders: Yes [employer] History: Hysterectomy Sexually Transmitted Disease: No HIV/AIDS: Yes Genitourinary: No Gastrointestinal: Yes Hepatitis Musculoskeletal: Yes (patient reports herniated, bulging cervical discs) Arthritis Endocrine: Yes Diabetes, Insulin dep HEENT: Yes Eye Injury Loss of Vision: Left Cancer: No Psychosocial: Yes Anxiety, Depression Integumentary: No Blood Disorders: Yes (Hep C, HIV) Adverse Reaction/Blood Tranf: No Family Medical History Reviewed Nursing Family Hx Cardiovascular disease 19 FATHER 19 MOTHER Diabetes mellitus 19 FATHER FH: lung disease 19 MOTHER Heart Disease, Diabetes, Hypertension Physical Exam Vital Signs Vital Signs - First Documented 02/06/22 18:00 Temp 35.9 Pulse 98 Resp 16 B/P (MAP) 136/89 (105) Pulse Ox 100 O2 Delivery Room Air Height, Weight, BMI Height: 5'5.00" Weight: 219lbs. 3.0oz. 99.860807ux; 31.00 BMI Method:Stated General Appearance: WD/WN, no apparent distress Mouth/Throat: normal mouth inspection, pharynx tenderness, tonsillar exudate Neck: non-tender, supple, normal inspection Cardiovascular: regular rate, rhythm, no edema, no gallop Respiratory: chest non-tender, lungs clear, normal breath sounds, no respiratory distress, no accessory muscle use Gastrointestinal: normal bowel sounds, non tender, soft Skin: warm/dry Progress/Results/Core Measures Results/Orders Lab Results Laboratory Tests Test 02/06/22 18:15 Range/Units Influenza Type A (RT-PCR) Not Detected Not Detecte Influenza Type B (RT-PCR) Not Detected Not Detecte SARS-CoV-2 RNA (RT-PCR) Not Detected Not Detecte Group A Streptococcus Screen NEGATIVE NEGATIVE My Orders Orders - BALDEMAR AGUSTIN DO Amoxicillin Capsule (Polymox Capsule) (02/06/22 19:20) Dexamethasone Injection (Decadron Inje (02/06/22 19:30) Vital Signs/I&O 02/06/22 18:00 Temp 35.9 Pulse 98 Resp 16 B/P (MAP) 136/89 (105) Pulse Ox 100 O2 Delivery Room Air Blood Pressure Mean: 105 Departure Communication (Admissions) Patient is hemodynamically stable. No trismus. Previous culture was after negative rapid strep test shows group B strep positive. Treated conservatively with antibiotics and steroids and discharged in stable condition. The patient is comfortable and agreeable to plan of care Impression Primary Impression: Streptococcal sore throat Disposition: 01 HOME, SELF-CARE Condition: Stable Departure-Patient Inst. Decision time for Depature: 19:20 Referrals: REGINO LOCKTET MD (PCP/Family) Primary Care Physician Patient Instructions: Strep Throat (DC) Add. Discharge Instructions: Please take antibiotics as prescribed until they are gone. Use Motrin and Tylenol as needed for pain. I given you steroid medicine here which should help with the pain and swelling. Return to the emergency department for any severe concerns. Follow-up with your primary physician for any nonemergent needs. All discharge instructions reviewed with patient and/or family. Voiced understanding. Scripts Amoxicillin (Amoxicillin) 500 Mg Capsule 500 MG PO BID for 7 Days, #14 CAP Prov: BALDEMAR AGUSTIN DO 02/06/22 BALDEMAR AGUSTIN DO Feb 06, 2022 19:20
[2022-02-06 19:32] VITALS: BP 136/89
== END 2022-02-06 19:32 | disposition home or self-care (01) ==
LOC: EDUNIT# 17:46 → ER FS 17:48
DX: J02.0 Streptococcal pharyngitis (principal); F17.210 Nicotine dependence, cigarettes, uncomplicated; Z20.822 Contact with and (suspected) exposure to COVID-19
CPT/HCPCS: 87430; 87636; 99284

== ENCOUNTER 2022-03-06 14:21 | Emergency (ER) | payer BC ==
[~2022-03-06] VITALS: Ht 165 cm; Wt 75.0 kg
[~2022-03-06 14:21] MED LIST changes: +AMOX500C2 PO
[2022-03-06] MEDS ORDERED: morphine INJ 10 MG/ML 1ML (SYR OR VIAL) IVP STA (14:27)
[2022-03-06] MEDS ORDERED: KETOROLAC 30 MG/ML VIAL IM STA (14:27)
--- NOTE | 2022-03-06 14:35 | ED Fall/Injury ---
General Chief Complaint: Back Problems Stated Complaint: FALL; BACK PAIN Nursing Triage Note: Patient has been brought to ER by EMS with cc of lower back pain for the last 2 days. She has been taking tylenol and ibuprofen for the pain. The pain is worse today and she called EMS for transport to ER. Source: patient, EMS, old records History of Present Illness Date Seen by Provider: Mar 06, 2022 Time Seen by Provider: 14:22 Initial Comments 46-year-old female presenting with complaints of pain to her tailbone area. She called EMS for transport to the emergency department today. She reports that 2 days ago she was going to sit in a chair and did not realize chair was not behind her. She landed on the floor on her buttocks and has had pain since then. She felt like the pain was worse today and was concerned there may be a fracture. She states that she has low vitamin D so it made her concerned that there might have been a broken bone. She denies hitting her head or losing consciousness. She has no pain radiating down her legs. She has had no loss of bowel or bladder control. She states that she has been taking Tylenol and ibuprofen without any significant improvement in her pain. Pain is severe and w orse when she sits or is walking. Occurred: other (Sunday, March 04) Severity: severe Injuries/Pain Location: pelvis (Tailbone area) Context: other (Fell on the floor when she was going to sit in a chair) Loss of Consciousness: no loss of consciousness Modifying Factors: Worse With Movement Associated Symptoms (Fall): No Abdominal Pain, No Chest Pain, No Confusion, No Dizziness, No Headache, No Lightheadedness, No Muscle Spasms, No Nausea/Vomiting, No Neck Pain, No Ringing in Ears, No Seizures, No Shortness of Air, No Slurred Speech; Trouble Walking (Due to pain); No Vision Changes Allergies and Home Medications Allergies Coded Allergies: hydromorphone (Verified Allergy, Unknown, b/p and oxygen level drop, 09/16/18) tramadol (Verified Allergy, Unknown, ANAPHYLAXIS, 09/16/18) Uncoded Allergies: air casts (Allergy, Unknown, 11/28/17) Patient Home Medication List Home Medication List Reviewed: Yes Albuterol Sulfate (Proair Hfa) 1 Puff Puff, 2 PUFF IH Q4H PRN for SHORTNESS OF BREATH, (Reported) Entered as Reported by: ANNEMARIE ROGERS on 06/28/18 1022 Aspirin (Aspirin EC) 81 Mg Tablet.dr, 81 MG PO HS, (Reported) Entered as Reported by: ANNEMARIE ROGERS on 06/28/18 1001 Atorvastatin Calcium (Atorvastatin Calcium) 40 Mg Tablet, 40 MG PO HS, (Reported) Entered as Reported by: ANNEMARIE ROGERS on 09/17/18 0914 Bupropion HCl (Bupropion HCl Sr) 150 Mg Tablet.er, 150 MG PO BID, (Reported) Entered as Reported by: CAMILA MARTÍNEZ on 07/19/18 1504 Clopidogrel Bisulfate (Clopidogrel) 75 Mg Tablet, 75 MG PO HS, (Reported) Entered as Reported by: ANNEMARIE ROGERS on 06/28/18 1001 Dolutegravir Sodium (Tivicay) 50 Mg Tablet, 50 MG PO HS, (Reported) Entered as Reported by: CAMILA MARTÍNEZ on 07/19/18 1504 Emtricitabine/Tenofov Alafenam (Descovy 200-25 mg Tablet) 1 Each Tablet, 1 TAB PO HS, (Reported) Entered as Reported by: CAMILA MARTÍNEZ on 07/19/18 1504 Estradiol (Estradiol Tablet) 2 Mg Tablet, 2 MG PO DAILY, (Reported) Entered as Reported by: CAMILA MARTÍNEZ on 07/19/18 1504 Furosemide (Furosemide) 40 Mg Tablet, 40 MG PO DAILY, (Reported) Entered as Reported by: CAMILA MARTÍNEZ on 07/19/18 1504 Hydrocodone Bit/Acetaminophen (HYDROcodone/APAP 10/325 TABLET) 1 Each Tablet, 1 TAB PO TID PRN for PAIN-MODERATE, (Reported) Entered as Reported by: ANNEMARIE ROGERS on 09/17/18 0914 Ibuprofen (Ibuprofen) 800 Mg Tablet, 800 MG PO Q8H PRN for PAIN Prescribed by: ELIZABETH ESTEVEZ on 03/06/22 1526 Insulin Aspart (Novolog) 100 Unit/1 Ml Susp, PER INSULIN PUMP, (Reported) Entered as Reported by: CAMILA MARTÍNEZ on 07/19/18 1504 Lisinopril (Lisinopril) 5 Mg Tablet, 5 MG PO HS, (Reported) Entered as Reported by: CAMILA MARTÍNEZ on 07/19/18 1504 Lisinopril (Lisinopril) 2.5 Mg Tablet, 2.5 MG PO DAILY, (Reported) Entered as Reported by: ANNEMARIE ROGERS on 09/17/18913 Metformin HCl (Metformin HCl ER) 500 Mg Tab.er.24h, 1,000 MG PO BID, (Reported) Entered as Reported by: CAMILA MARTÍNEZ on 07/19/18 150 Methocarbamol (Methocarbamol) 750 Mg Tablet, 1,500 MG PO Q8H PRN for coccyx pain/muscle spasm Prescribed by: ELIZABETH ESTEVEZ on 03/06/22 1526 Metoprolol Tartrate (Metoprolol Tartrate) 25 Mg Tablet, 25 MG PO BID, (Reported) Entered as Reported by: CAMILA MARTÍNEZ on 07/19/18 150 Omeprazole (Omeprazole) 40 Mg Capsule.dr, 40 MG PO DAILY, (Reported) Entered as Reported by: ANNEMARIE ROGERS on 09/17/18913 Ondansetron (Ondansetron Odt) 8 Mg Tab.rapdis, 8 MG PO Q4H PRN for NAUSEA/VOMITING-1ST LINE, (Reported) Entered as Reported by: ANNEMARIE ROGERS on 09/17/18913 Ondansetron (Ondansetron Odt) 4 Mg Tab.rapdis, 4 MG PO Q6H PRN for NAUSEA/VOMITING Prescribed by: ELIZABETH ESTEVEZ on 02/06/21 1708 Pregabalin (Lyrica) 75 Mg Capsule, 75 MG PO DAILY, (Reported) Entered as Reported by: CAMILA MARTÍNEZ on 07/19/18 150 Pregabalin (Lyrica) 75 Mg Capsule, 150 MG PO HS, (Reported) Entered as Reported by: ANNEMARIE ROGERS on 09/17/18913 Sucralfate (Sucralfate) 1 Gm Tablet, 1 GM PO ACHS PRN for INDIGESTION, (Reported) Entered as Reported by: ANNEMARIE ROGERS on 09/17/18 09 Discontinued Medications Amoxicillin (Amoxicillin) 500 Mg Capsule, 500 MG PO BID Prescribed by: BALDEMAR AGUSTIN MD on 02/06/22 1919 Cephalexin (Cephalexin) 500 Mg Tablet, 500 MG PO QID Prescribed by: RENA FRANKLIN on 08/24/21 1651 Chlorhexidine Gluconate (Hibiclens) 118 Ml Liquid, 118 ML TP ONCE Prescribed by: BRETT BRADEN on 12/07/20 1101 Clonazepam (Clonazepam) 1 Mg Tablet, 1 MG PO Q8H PRN for ANXIETY Prescribed by: ELIZABETH ESTEVEZ on 06/28/20 1820 Cyclobenzaprine HCl (Cyclobenzaprine HCl) 10 Mg Tablet, 10 MG PO Q8H PRN for SPASMS Prescribed by: REBECCA GALARZA on 07/28/20 1742 Diclofenac Potassium (Diclofenac Potassium) 50 Mg Tablet, 50 MG PO TID Prescribed by: JAIME RUDOLPH on 02/17/19 1704 Diclofenac Sodium (Diclofenac Sodium) 75 Mg Tablet.dr, 75 MG PO BID Prescribed by: JUSTA CARDENAS on 10/02/19 213 Dicyclomine HCl (Dicyclomine HCl) 20 Mg Tablet, 20 MG PO QID PRN for abdominal pain/cramping Prescribed by: ELIZABETH ESTEVEZ on 02/06/21 1707 Doxycycline Hyclate (Doxycycline Hyclate) 100 Mg Tablet, 100 MG PO BID Prescribed by: RENA FRANKLIN on 08/24/21 1651 Fluconazole (Diflucan) 150 Mg Tablet, 150 MG PO UD Prescribed by: JEFFERY PEREZ on 03/04/21 1152 Hydrocodone Bit/Acetaminophen (Lortab 7.5 Mg Tablet) 1 Ea Tablet, 1 EACH PO Q6H PRN for BREAK THRU FOOT PAIN Prescribed by: SABRINA FRANCO on 11/25/18 1723 Hydrocodone/Acetaminophen (Hydrocodone-Acetamin 5-325 mg) 1 Each Tablet, 1 TAB PO Q6H PRN for PAIN-SEVERE (8-10) Prescribed by: ELIZABETH ESTEVEZ on 06/28/20 1820 Hydrocodone/Acetaminophen (Hydrocodone-Acetamin 5-325 mg) 1 Each Tablet, 1 TAB PO Q6H PRN for PAIN-MODERATE (5-7) Prescribed by: ROXIE RIVERA on 10/03/20 1215 Hydrocodone/Acetaminophen (Hydrocodone-Acetamin 10-325 mg) 1 Each Tablet, 1 EACH PO Q8H PRN for PAIN-SEVERE (8-10) Prescribed by: ELIZABETH ESTEVEZ on 02/06/21 1708 Ibuprofen (Ibuprofen) 800 Mg Tablet, 800 MG PO Q8H PRN for PAIN Prescribed by: ELIZABETH AGUIRRERT on 01/15/22 225 Methocarbamol (Methocarbamol) 750 Mg Tablet, 1,500 MG PO Q8H PRN for MUSCLE SPASMS Prescribed by: ELIZABETH AGUIRRERT on 01/15/22 225 Metronidazole (Metronidazole) 500 Mg Tablet, 500 MG PO BID Prescribed by: ELIZABETH ESTEVEZ on 06/28/20 181 Mupirocin (Mupirocin) 22 Gm Oint...g., 22 GM TP BID Prescribed by: BRETT BRADEN on 12/07/20 1101 Mupirocin Calcium (Mupirocin) 15 Gm Cream..g., 15 GM TP BID Prescribed by: JEFFERY PEREZ on 03/04/21 1152 Ondansetron (Ondansetron Odt) 4 Mg Tab.rapdis, 4 MG PO Q6H Prescribed by: BRETT BRADEN on 07/19/21 1519 Ondansetron (Ondansetron Odt) 4 Mg Tab.rapdis, 4 MG PO Q6H PRN for NAUS EA/VOMITING Prescribed by: ELIZABETH ESTEVEZ on 01/15/222251 Oxycodone HCl/Acetaminophen (Percocet 5-325 mg Tablet) 1 Each Tablet, 1 TAB PO Q4H Prescribed by: BRETT BRADEN on 12/07/202208 Oxycodone HCl/Acetaminophen (Percocet 5-325 mg Tablet) 1 Each Tablet, 1 TAB PO Q4H Prescribed by: BRETT BRADEN on 12/07/202208 Oxycodone HCl/Acetaminophen (Percocet 5-325 mg Tablet) 1 Each Tablet, 1 TAB PO Q4H Prescribed by: BRETT BRADEN on 12/07/20 1759 Sulfamethoxazole/Trimethoprim (Sulfamethoxazole-Tmp Ds Tablet) 1 Each Tablet, 1 EACH PO BID Prescribed by: MALLORIE LAWS on 03/08/19 1705 Sulfamethoxazole/Trimethoprim (Bactrim Ds Tablet) 1 Each Tablet, 1 EACH PO BID Prescribed by: ROXIE RIVERA on 10/03/20 1215 Sulfamethoxazole/Trimethoprim (Bactrim Ds Tablet) 1 Each Tablet, 1 EACH PO BID Prescribed by: JEFFERY PEREZ on 03/04/21 1152 Sulfamethoxazole/Trimethoprim (Bactrim Ds Tablet) 1 Each Tablet, 1 EACH PO BID Prescribed by: BRETT BRADEN on 03/15/21 1221 Review of Systems Review of Systems Constitutional: No chills, No fever Eyes: No Symptoms Reported Ears, Nose, Mouth, Throat: no symptoms reported Respiratory: no symptoms reported Cardiovascular: no symptoms reported Gastrointestinal: no symptoms reported Genitourinary: no symptoms reported Musculoskeletal: see HPI Skin: No change in color Psychiatric/Neurological: Denies Numbness, Denies Paresthesia Past Pytzyzm-Gnjfet-Utbivw Hx Patient Social History Tobacco Use?: Yes Tobacco type used: Cigarettes Smoking Status: Current Everyday Smoker Use of E-Cig and/or Vaping dev: No Substance use?: Yes Substance type: Methamphetamine, Marijuana Alcohol Use?: No Immunizations Up To Date First/Initial COVID19 Vaccinat: 02/18/2021 Second COVID19 Vaccination Rene: 02/18/2021 Third COVID19 Vaccination Date: 02/18/2021 Seasonal Allergies Seasonal Allergies: No Past Medical History Surgery/Hospitalization HX: HIV, Methamphetamine abuse Surgeries: Yes Coronary Stent, Eye Surgery, Gallbladder, Hysterectomy, Tubal Ligation Respiratory: Yes Asthma, COPD Cardiac: Yes Heart Attack, High Cholesterol, Hypertension Neurological: Yes (psuedoseizure when really stressed out) Seizure Disorder 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 Disorders: Yes 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[employer] History: Hysterectomy Sexually Transmitted Disease: No HIV/AIDS: Yes Genitourinary: No Gastrointestinal: Yes Hepatitis Musculoskeletal: Yes (patient reports herniated, bulging cervical discs) Arthritis Endocrine: Yes Diabetes, Insulin dep HEENT: Yes Eye Injury Loss of Vision: Left Cancer: No Psychosocial: Yes Anxiety, Depression Integumentary: No Blood Disorders: Yes (Hep C, HIV) Adverse Reaction/Blood Tranf: No Family Medical History Cardiovascular disease 19 FATHER 19 MOTHER Diabetes mellitus 19 FATHER FH: lung disease 19 MOTHER Heart Disease, Diabetes, Hypertension Physical Exam Vital Signs Vital Signs - First Documented 03/06/22 14:27 Temp 36.4 Pulse 95 Resp 18 B/P (MAP) 126/69 (88) Pulse Ox 95 O2 Delivery Room Air Capillary Refill : Height, Weight, BMI Height: 5'5.00" Weight: 219lbs. 3.0oz. 99.280093it; 27.00 BMI Method:Stated General Appearance: other (Chronically ill-appearing and crying out in pain with any pressure on her buttocks) Cardiovascular: normal peripheral pulses, regular rate, rhythm Respiratory: chest non-tender, lungs clear, normal breath sounds Rectal: deferred Back: no CVA tenderness, no vertebral tenderness, other (Tender to palpation over her coccyx with no crepitus or step-off. There is no bruising or discoloration) Extremities: normal range of motion, normal capillary refill Neurologic/Psychiatric: alert, oriented x 3 Skin: normal color, warm/dry, other (Multiple sores on her skin of her body in various areas where it looks like she has been picking at them) Emily Coma Score Best Eye Response: (4) Open Spontaneously Best Verbal Response: (5) Oriented Best Motor Response: (6) Obeys Commands [place] Total: 15 Progress/Results/Core Measures Results/Orders My Orders Orders - ELIZABETH ESTEVEZ MD Ketorolac Injection (Toradol Injection) (03/06/22 14:27) Morphine Injection (Morphine Injection (03/06/22 14:27) Ct Pelvis Wo (03/06/22 14:28) Vital Signs/I&O 03/06/22 03/06/22 14:27 15:30 Temp 36.4 36.4 Pulse 95 95 Resp 18 18 B/P (MAP) 126/69 (88) 126/69 Pulse Ox 95 95 O2 Delivery Room Air Room Air Blood Pressure Mean: 88 Progress Progress Note #1: Progress Note Ordered a dose of Toradol IM as well as morphine IM to try and help with her pain. Obtain a CT scan of the pelvis to evaluate for possible fracture or dislocation of any bony parts. On exam she appears to just have contusion over coccyx and sacrum. However she is complaining of severe amount of pain with any palpation or movement of her pelvis. Differential diagnosis includes coccyx fracture, coccyx contusion, sacral fracture, sacral contusion, pelvic hematoma, pubic ramus fracture, pelvic fracture Progress Note #2: Progress Note CT scan does not show any acute bony abnormality. Reassured patient and will prescribe ibuprofen and muscle relaxer. Counseled to use ice and see about getting a hemorrhoid pillow that would help take pressure off of her tailbone. Diagnostic Imaging Diagonstic Imaging: CT Plain Films/CT/US/NM/MRI: pelvis Comments NAME: LINDSEY DE LA TORRE [facility] REC#: [id number] PT STATUS: REG ER : 1975 PHYSICIAN: ELIZABETH ESTEVEZ MD ADMIT DATE: 03/06/22/ER FS Draft Date of Exam:03/06/22 CT PELVIS WO PROCEDURE: CT pelvis without contrast. TECHNIQUE: Multiple contiguous axial images were obtained through the pelvis without the use of intravenous contrast. Sagittal and coronal reformations were performed. Auto Exposure Controls were utilized during the CT exam to meet ALARA standards for radiation dose reduction. INDICATION: Fall and sacral pain. FINDINGS: Bilateral sacral ala are unremarkable. SI joints are non widened. The superior and inferior pubic rami are intact. No fractures are seen. Femoroacetabular alignment is normal bilaterally. Femoral heads and necks are intact without evidence of fracture. IMPRESSION: No acute bony abnormality is detected. No fracture is detected. Dictated on workstation # [id number] Dict: 03/06/22 1458 Trans: 03/06/22 1503 [id number] Interpreted by: ROBERT EARL MD Electronically signed by: Reviewed: Reviewed by Me Departure Impression Primary Impression: Coccyx contusion Qualified Codes: S30.0XXA - Contusion of lower back and pelvis, initial encounter Additional Impressions: Pain, coccyx Fall from chair, initial encounter Disposition: 01 HOME, SELF-CARE Condition: Stable Departure-Patient Inst. Decision time for Depature: 15:26 Referrals: REGINO LOCKETT MD (PCP) Primary Care Physician Patient Instructions: Coccyx Injury (DC), Minor Contusion ED Add. Discharge Instructions: Apply ice 20-30 minutes every few hours as needed for pain. Continue with Acetaminophen alternating with Ibuprofen to help with pain. Check back with clinic for continued concerns. Consider getting a inflatable hemorrhoid donut to help keep pressure off your coccyx. All discharge instructions reviewed with patient and/or family. Voiced understanding. Scripts Ibuprofen (Ibuprofen) 800 Mg Tablet 800 MG PO Q8H PRN for PAIN for 10 Days, #30 TAB 0 Refills Prov: ELIZABETH ESTEVEZ MD 03/06/22 Methocarbamol (Methocarbamol) 750 Mg Tablet 1500 MG PO Q8H PRN for coccyx pain/muscle spasm for 7 Days, #42 TAB 0 Refills Prov: ELIZABETH ESTEVEZ MD 03/06/22 ELIZABETH ESTEVEZ MD Mar 06, 2022 14:35
--- NOTE | 2022-03-06 15:03 | Diagnostic Imaging Report ---
PROCEDURE: CT pelvis without contrast. TECHNIQUE: Multiple contiguous axial images were obtained through the pelvis without the use of intravenous contrast. Sagittal and coronal reformations were performed. Auto Exposure Controls were utilized during the CT exam to meet ALARA standards for radiation dose reduction. INDICATION: Fall and sacral pain. FINDINGS: Bilateral sacral ala are unremarkable. SI joints are non widened. The superior and inferior pubic rami are intact. No fractures are seen. Femoroacetabular alignment is normal bilaterally. Femoral heads and necks are intact without evidence of fracture. IMPRESSION: No acute bony abnormality is detected. No fracture is detected. Dictated by: Dictated on workstation # [id number]
[2022-03-06] MEDS ORDERED: METH-732 PO (15:26)
[2022-03-06] MEDS ORDERED: IBUP-1780 PO (15:26)
[2022-03-06 15:30] VITALS: BP 126/69
== END 2022-03-06 15:30 | disposition home or self-care (01) ==
LOC: EDUNIT# 14:21 → ER FS 14:22
DX: S30.0XXA Contusion of lower back and pelvis, initial encounter (principal); E11.9 Type 2 diabetes mellitus without complications; F17.210 Nicotine dependence, cigarettes, uncomplicated; Z79.4 Long term (current) use of insulin; W07.XXXA Fall from chair, initial encounter
CPT/HCPCS: 72192

== ENCOUNTER 2022-03-18 15:06 | Emergency (ER) | payer BC, OTHER ==
[~2022-03-18] VITALS: Ht 160 cm; Wt 74.8 kg
[~2022-03-18 15:06] MED LIST changes: +ALBU8.5H6 IH; -RT-ALBUINH IH
--- NOTE | 2022-03-18 15:12 | ED Neurological Problem ---
General Chief Complaint: Neurological Problems Stated Complaint: SEIZURES History of Present Illness Date Seen by Provider: Mar 18, 2022 Time Seen by Provider: 15:12 Initial Comments 46-year-old female prisoner accompanied by police, is brought in by EMS with complaints of having a seizure at snf. Patient has a PMH of pseudoseizures/IDDM/CAD with stents placed in 2018/stomach cancer on chemo. Patient states that she started having acute on chronic abdominal pain last night which was more on the left upper side of her abdomen and below her bellybutton. Denies fever, constipation, diarrhea, nausea and vomiting, chest pain, fall, head strike, LOC. Patient takes pregabalin for her pseudoseizures, but she is not getting this in snf. Allergies and Home Medications Allergies Coded Allergies: hydromorphone (Verified Allergy, Unknown, b/p and oxygen level drop, 09/16/18) tramadol (Verified Allergy, Unknown, ANAPHYLAXIS, 09/16/18) Uncoded Allergies: air casts (Allergy, Unknown, 11/28/17) Patient Home Medication List Home Medication List Reviewed: Yes Albuterol Sulfate (Proair Hfa) 1 Puff Puff, 2 PUFF IH Q4H PRN for SHORTNESS OF BREATH, (Reported) Entered as Reported by: ANNEMARIE ROGERS on 06/28/18 1022 Aspirin (Aspirin EC) 81 Mg Tablet.dr, 81 MG PO HS, (Reported) Entered as Reported by: ANNEMARIE ROGERS on 06/28/18 1001 Atorvastatin Calcium (Atorvastatin Calcium) 40 Mg Tablet, 40 MG PO HS, (Reported) Entered as Reported by: ANNEMARIE ROGERS on 09/17/18 0914 Bupropion HCl (Bupropion HCl Sr) 150 Mg Tablet.er, 150 MG PO BID, (Reported) Entered as Reported by: CAMILA MARTÍNEZ on 07/19/18 1504 Clopidogrel Bisulfate (Clopidogrel) 75 Mg Tablet, 75 MG PO HS, (Reported) Entered as Reported by: ANNEMARIE ROGERS on 06/28/18 1001 Dolutegravir Sodium (Tivicay) 50 Mg Tablet, 50 MG PO HS, (Reported) Entered as Reported by: CAMILA MARTÍNEZ on 07/19/18 1504 Emtricitabine/Tenofov Alafenam (Descovy 200-25 mg Tablet) 1 Each Tablet, 1 TAB PO HS, (Reported) Entered as Reported by: CAMILA MARTÍNEZ on 07/19/18 150 Estradiol (Estradiol Tablet) 2 Mg Tablet, 2 MG PO DAILY, (Reported) Entered as Reported by: CAMILA MARTÍNEZ on 07/19/18 150 Furosemide (Furosemide) 40 Mg Tablet, 40 MG PO DAILY, (Reported) Entered as Reported by: CAMILA MARTÍNEZ on 07/19/18 150 Hydrocodone Bit/Acetaminophen (HYDROcodone/APAP 10/325 TABLET) 1 Each Tablet, 1 TAB PO TID PRN for PAIN-MODERATE, (Reported) Entered as Reported by: ANNEMARIE ROGERS on 09/17/18913 Ibuprofen (Ibuprofen) 800 Mg Tablet, 800 MG PO Q8H PRN for PAIN Prescribed by: ELIZABETH ESTEVEZ on 03/06/22 152 Insulin Aspart (Novolog) 100 Unit/1 Ml Susp, PER INSULIN PUMP, (Reported) Entered as Reported by: CAMILA MARTÍNEZ on 07/19/18 150 Lisinopril (Lisinopril) 5 Mg Tablet, 5 MG PO HS, (Reported) Entered as Reported by: CAMILA MARTÍNEZ on 07/19/18 150 Lisinopril (Lisinopril) 2.5 Mg Tablet, 2.5 MG PO DAILY, (Reported) Entered as Reported by: ANNEMARIE ROGERS on 09/17/18913 Metformin HCl (Metformin HCl ER) 500 Mg Tab.er.24h, 1,000 MG PO BID, (Reported) Entered as Reported by: CAMILA MARTÍNEZ on 07/19/18 150 Methocarbamol (Methocarbamol) 750 Mg Tablet, 1,500 MG PO Q8H PRN for coccyx pain/muscle spasm Prescribed by: ELIZABETH ESTEVEZ on 03/06/22 152 Metoprolol Tartrate (Metoprolol Tartrate) 25 Mg Tablet, 25 MG PO BID, (Reported) Entered as Reported by: CAMILA MARTÍNEZ on 07/19/18 150 Omeprazole (Omeprazole) 40 Mg Capsule.dr, 40 MG PO DAILY, (Reported) Entered as Reported by: ANNEMARIE ROGERS on 09/17/18 09 Ondansetron (Ondansetron Odt) 8 Mg Tab.rapdis, 8 MG PO Q4H PRN for NAUSEA/VOMITING-1ST LINE, (Reported) Entered as Reported by: ANNEMARIE ROGERS on 09/17/18913 Ondansetron (Ondansetron Odt) 4 Mg Tab.rapdis, 4 MG PO Q6H PRN for NAUSEA/VOMITING Prescribed by: ELIZABETH ESTEVEZ on 02/06/21 1708 Pregabalin (Lyrica) 75 Mg Capsule, 75 MG PO DAILY, (Reported) Entered as Reported by: CAMILA MARTÍNEZ on 07/19/18 1504 Pregabalin (Lyrica) 75 Mg Capsule, 150 MG PO HS, (Reported) Entered as Reported by: ANNEMARIE ROGERS on 09/17/18 09 Sucralfate (Sucralfate) 1 Gm Tablet, 1 GM PO ACHS PRN for INDIGESTION, (Reported) Entered as Reported by: ANNEMARIE ROGERS on 09/17/18913 Review of Systems Review of Systems Constitutional: no symptoms reported Eyes: No Symptoms Reported Ears, Nose, Mouth, Throat: no symptoms reported Respiratory: no symptoms reported Cardiovascular: no symptoms reported Gastrointestinal: LUQ (and suprapubic area), nausea Genitourinary: no symptoms reported Musculoskeletal: no symptoms reported Skin: no symptoms reported Psychiatric/Neurological: No Symptoms Reported Endocrine: No Symptoms Reported Hematologic/Lymphatic: No Symptoms Reported Past Amptysk-Tnznim-Ehxjuc Hx Immunizations Up To Date First/Initial COVID19 Vaccinat: 02/18/2021 Second COVID19 Vaccination Rene: 02/18/2021 Third COVID19 Vaccination Date: 02/18/2021 Seasonal Allergies Seasonal Allergies: No Past Medical History Surgery/Hospitalization HX: HIV, Methamphetamine abuse Surgeries: Yes Coronary Stent, Eye Surgery, Gallbladder, Hysterectomy, Tubal Ligation Respiratory: Yes Asthma, COPD Cardiac: Yes Heart Attack, High Cholesterol, Hypertension Neurological: Yes (psuedoseizure when really stressed out) Seizure Disorder 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 Sexually Transmitted Disease: No HIV/AIDS: Yes Genitourinary: No Gastrointestinal: Yes Hepatitis Musculoskeletal: Yes (patient reports herniated, bulging cervical discs) Arthritis Endocrine: Yes Diabetes, Insulin dep HEENT: Yes Eye Injury Loss of Vision: Left Cancer: No Psychosocial: Yes Anxiety, Depression Integumentary: No Blood Disorders: Yes (Hep C, HIV) Adverse Reaction/Blood Tranf: No Family Medical History Cardiovascular disease 19 FATHER 19 MOTHER Diabetes mellitus 19 FATHER FH: lung disease 19 MOTHER Heart Disease, Diabetes, Hypertension Physical Exam Vital Signs Vital Signs - First Documented 03/18/22 15:08 Temp 36.5 Pulse 65 Resp 16 B/P (MAP) 129/86 (100) Pulse Ox 98 O2 Delivery Room Air Capillary Refill : Height, Weight, BMI Height: 5'5.00" Weight: 219lbs. 3.0oz. 99.031190vt; 27.00 BMI Method:Stated General Appearance: WD/WN, no apparent distress HEENT: PERRL/EOMI Neck: full range of motion Respiratory: chest non-tender, lungs clear, normal breath sounds Cardiovascular: regular rate, rhythm, no edema Gastrointestinal: normal bowel sounds, soft, no organomegaly, tenderness (LUQ and suprapubic area) Back: normal inspection, no CVA tenderness Extremities: normal range of motion Neurologic/Psychiatric: no motor/sensory deficits, alert, oriented x 3 Motor/Sensory: no motor deficit, no sensory deficit Skin: normal color, warm/dry Lymphatic: no adenopathy Progress/Results/Core Measures Results/Orders Lab Results Laboratory Tests Test 03/18/22 15:35 03/18/22 15:45 Range/Units White Blood Count 7.5 4.3-11.0 10^3/uL Red Blood Count 4.37 3.80-5.11 10^6/uL Hemoglobin 12.6 11.5-16.0 g/dL Hematocrit 37 35-52 % Mean Corpuscular Volume 85 80-99 fL Mean Corpuscular Hemoglobin 29 25-34 pg Mean Corpuscular Hemoglobin Concent 34 32-36 g/dL Red Cell Distribution Width 12.6 10.0-14.5 % Platelet Count 261 130-400 10^3/uL Mean Platelet Volume 10.3 9.0-12.2 fL Immature Granulocyte % (Auto) 0 % Neutrophils (%) (Auto) 59 42-75 % Lymphocytes (%) (Auto) 31 12-44 % Monocytes (%) (Auto) 7 0-12 % Eosinophils (%) (Auto) 2 0-10 % Basophils (%) (Auto) 0 0-10 % Neutrophils # (Auto) 4.5 1.8-7.8 10^3/uL Lymphocytes # (Auto) 2.4 1.0-4.0 10^3/uL Monocytes # (Auto) 0.5 0.0-1.0 10^3/uL Eosinophils # (Auto) 0.2 0.0-0.3 10^3/uL Basophils # (Auto) 0.0 0.0-0.1 10^3/uL Immature Granulocyte # (Auto) 0.0 0.0-0.1 10^3/uL Sodium Level 137 135-145 MMOL/L Potassium Level 4.7 3.6-5.0 MMOL/L Chloride Level 101 98-107 MMOL/L Carbon Dioxide Level 27 21-32 MMOL/L Anion Gap 9 5-14 MMOL/L Blood Urea Nitrogen 12 7-18 MG/DL Creatinine 0.50 L 0.60-1.30 MG/DL Estimat Glomerular Filtration Rate 118 BUN/Creatinine Ratio 24 Glucose Level 258 H 70-105 MG/DL Calcium Level 9.3 8.5-10.1 MG/DL Corrected Calcium 9.5 8.5-10.1 MG/DL Magnesium Level 1.7 1.6-2.4 MG/DL Total Bilirubin 0.4 0.1-1.0 MG/DL Aspartate Amino Transf (AST/SGOT) 15 5-34 U/L Alanine Aminotransferase (ALT/SGPT) 18 0-55 U/L Alkaline Phosphatase 60 40-136 U/L Total Protein 6.5 6.4-8.2 GM/DL Albumin 3.8 3.2-4.5 GM/DL Lipase 20 8-78 U/L Serum Alcohol < 10 <10 MG/DL Urine Color YELLOW Urine Clarity CLEAR Urine pH 7.0 5-9 Urine Specific [place] 1.020 1.016-1.022 Urine Protein NEGATIVE NEGATIVE Urine Glucose (UA) 2+ H NEGATIVE Urine Ketones NEGATIVE NEGATIVE Urine Nitrite NEGATIVE NEGATIVE Urine Bilirubin NEGATIVE NEGATIVE Urine Urobilinogen 0.2 < = 1.0 MG/DL Urine Leukocyte Esterase NEGATIVE NEGATIVE Urine RBC (Auto) NEGATIVE NEGATIVE Urine RBC NONE /HPF Urine WBC 10-25 H /HPF Urine Squamous Epithelial Cells 25-50 H /HPF Urine Crystals NONE /LPF Urine Bacteria MODERATE H /HPF Urine Casts NONE /LPF Urine Mucus MODERATE H /LPF Urine Culture Indicated NO Urine Test NEGATIVE NEGATIVE Urine Opiates Screen NEGATIVE NEGATIVE Urine Oxycodone Screen NEGATIVE NEGATIVE Urine Methadone Screen NEGATIVE NEGATIVE Urine Propoxyphene Screen NEGATIVE NEGATIVE Urine Barbiturates Screen NEGATIVE NEGATIVE Ur Tricyclic Antidepressants Screen NEGATIVE NEGATIVE Urine Phencyclidine Screen NEGATIVE NEGATIVE Urine Amphetamines Screen NEGATIVE NEGATIVE Urine Methamphetamines Screen NEGATIVE NEGATIVE Urine Benzodiazepines Screen NEGATIVE NEGATIVE Urine Cocaine Screen NEGATIVE NEGATIVE Urine Cannabinoids Screen POSITIVE H NEGATIVE My Orders Orders - JESS YOO MD Alcohol (03/18/22 15:12) Cbc With Automated Diff (03/18/22 15:12) Comprehensive Metabolic Panel (03/18/22 15:12) Drug Screen Stat (Urine) (03/18/22 15:12) Hcg,Qualitative Urine (03/18/22 15:12) Magnesium (03/18/22 15:12) Ua Culture If Indicated (03/18/22 15:12) Ondansetron Injection (Zofran Injectio (03/18/22 15:30) Ct Abdomen/Pelvis W (03/18/22 15:23) Ketorolac Injection (Toradol Injection) (03/18/22 15:30) Lipase (03/18/22 15:35) Iohexol Injection (Omnipaque 350 Mg/Ml 1 (03/18/22 16:15) Received Contrast (Hold Metformin- Contr (03/18/22 16:15) Sodium Chloride Flush (Catheter Flush Sy (03/18/22 16:15) Ns (Ivpb) (Sodium Chloride 0.9% Ivpb Bag (03/18/22 16:15) Medications Given in ED Current Medications Medications Dose Ordered Sig/Randy Route Start Time Stop Time Status Last Admin Dose Admin Iohexol 100 ml ONCE ONCE IV 03/18/22 16:15 03/18/22 16:18 DC 03/18/22 16:33 80 ML Ketorolac Tromethamine 15 mg ONCE ONCE IVP 03/18/22 15:30 03/18/22 15:31 DC 03/18/22 15:50 15 MG Ondansetron HCl 4 mg ONCE ONCE IVP 03/18/22 15:30 03/18/22 15:31 DC 03/18/22 15:50 4 MG Sodium Chloride 10 ml NEEDED PRN IV 03/18/22 16:15 03/18/22 16:33 10 ML Sodium Chloride 100 ml ONCE ONCE IV 03/18/22 16:15 03/18/22 16:18 DC 03/18/22 16:33 100 ML Vital Signs/I&O 03/18/22 15:08 Temp 36.5 Pulse 65 Resp 16 B/P (MAP) 129/86 (100) Pulse Ox 98 O2 Delivery Room Air Progress Progress Note : Progress Note 1. PSEUDOSEIZURES/ NONSPECIFIC ENTERITIS/ MARIJUANA ABUSE: - CT ABD/ PELVIS: see report - Labs: normal - UA/ UDS: normal , marijunan positive - Toradol 15mg iv / Zofran 4mg iv STAT - Advised to follow up with snf physician/ BREWERY TECHNICIAN within 3 days -Adequate hydration and bland diet advised. -The patient was seen in the ED, and treated appropriately to presentation at a specific point in time. Patient is informed that there is a possibility that disease and illness can evolve and change in acuity rapidly or slowly after patient is discharged from the ER. Precautionary advice given to the patient for immediate return to ER if symptoms worsen or do not resolve, and to seek emergency care sooner rather than later. Pt also advised on the importance of PCP follow up and compliance with management and follow up plan with PCP and/or specialist, as this is part of the management plan. Pt verbally expressed understanding. Diagnostic Imaging Diagonstic Imaging: CT Plain Films/CT/US/NM/MRI: abdomen Comments [facility] [place], [place] NAME: LINDSEY DE LA TORRE [facility] REC#: [id number] PT STATUS: REG ER : 1975 PHYSICIAN: JESS YOO MD ADMIT DATE: 03/18/22/ER FS Signed Date of Exam:03/18/22 CT ABDOMEN/PELVIS W PROCEDURE: CT abdomen and pelvis with contrast. TECHNIQUE: Multiple contiguous axial images were obtained through the abdomen and pelvis after administration of intravenous contrast. Auto Exposure Controls were utilized during the CT exam to meet ALARA standards for radiation dose reduction. All CT scans use one or more of the following dose optimizing techniques: automated exposure control, MA and/or KvP adjustment based on patient size and exam type or iterative reconstruction. DATE: March 18, 2022. COMPARISON: CT pelvis March 06, 2022. CT chest, abdomen and pelvis January 15, 2022. INDICATION: 46-year-old female, abdominal pain and nausea. FINDINGS: The visualized portions of the lung bases are clear. The heart is not enlarged. There is no identified pericardial effusion. The liver is unremarkable in size and contour. There is no identified liver lesion. The main, right and left portal veins are patent. The gallbladder is surgically absent. There is no biliary ductal dilation. The main pancreatic duct is not abnormally dilated. Evaluation of the pancreatic parenchyma is unremarkable. The spleen is normal in size. The adrenal glands are unremarkable. There are areas of right renal cortical scarring and also of left renal cortical scarring. The urinary collecting systems are not distended. There is no identified renal or ureteral stone. There are pelvic calcifications consistent with phleboliths. The urinary bladder is grossly unremarkable. The uterus is not seen and may be surgically absent. The intestinal tract is not distended. There is no evidence of acute appendicitis. There is no free intraperitoneal air. There is no drainable fluid collection. There is no free fluid in the abdomen or pelvis. There is mild distal small bowel wall thickening of the pelvis. There are atherosclerotic calcifications. There is no identified abnormally enlarged lymph node in the abdomen or pelvis meeting CT size criteria for adenopathy. There is no identified acute bony abnormality. IMPRESSION: CT abdomen and pelvis: 1. Wall thickening of small bowel in the pelvis which may relate to a nonspecific enteritis. Dictated by: Dictated on workstation # [id number] Dict: 03/18/221641 Trans: 03/18/221700 [facility] [id number] Interpreted by: SHEREEN ADORNO MD Electronically signed by: SHEREEN ADORNO MD 03/18/221700 Departure Impression Primary Impression: Pseudoseizures Additional Impressions: Enteritis Marijuana abuse Disposition: 21 DIS/X[address]/LAW ENFORCE Condition: Stable Departure-Patient Inst. Referrals: REGINO LOCKETT MD (PCP) Primary Care Physician Patient Instructions: Marijuana Use and Addiction, Viral Gastroenteritis, Adult (DC), Cannabis Hyperemesis Syndrome Add. Discharge Instructions: - Advised to follow up with snf physician/ BREWERY TECHNICIAN within 3 days -Adequate hydration and bland diet advised. All discharge instructions reviewed with patient and/or family. Voiced understanding. JESS YOO MD Mar 18, 2022 15:12
[2022-03-18] MEDS ORDERED: ONDANSETRON 4 MG/2 ML (SDV) Z0FRAN IVP ONE (15:30)
[2022-03-18] MEDS ORDERED: KETOROLAC 30 MG/ML VIAL IVP ONE (15:30)
[2022-03-18 15:36] LABS: BASOPHILS % (AUTO) 0 % (0-10); EOSINOPHILS # (AUTO) 0.2 10^3/uL (0.0-0.3); EOSINOPHILS % (AUTO) 2 % (0-10); HEMATOCRIT 37 % (35-52); HEMOGLOBIN 12.6 g/dL (11.5-16.0); LYMPHOCYTES # (AUTO) 2.4 10^3/uL (1.0-4.0); LYMPHOCYTES % (AUTO) 31 % (12-44); MEAN CORPUSCULAR HEMOGLOBIN 29 pg (25-34); MEAN CORPUSCULAR HGB CONC 34 g/dL (32-36); MEAN CORPUSCULAR VOLUME 85 fL (80-99); MEAN PLATELET VOLUME 10.3 fL (9.0-12.2); MONOCYTES # (AUTO) 0.5 10^3/uL (0.0-1.0); MONOCYTES % (AUTO) 7 % (0-12); NEUTROPHILS # (AUTO) 4.5 10^3/uL (1.8-7.8); NEUTROPHILS % (AUTO) 59 % (42-75); PLATELET COUNT 261 10^3/uL (130-400); WHITE BLOOD COUNT 7.5 10^3/uL (4.3-11.0)
[2022-03-18 15:50] LABS: BILIRUBIN,URINE NEGATIVE (NEGATIVE); CLARITY,URINE CLEAR; COLOR,URINE YELLOW; GLUCOSE, URINE (UA) 2+ (NEGATIVE); HCG,QUALITATIVE URINE NEGATIVE (NEGATIVE); KETONES,URINE NEGATIVE (NEGATIVE); LEUKOCYTE ESTERASE ,URINE NEGATIVE (NEGATIVE); NITRITE,URINE NEGATIVE (NEGATIVE); PROTEIN,URINE NEGATIVE (NEGATIVE)
[2022-03-18 15:53] LABS: BACTERIA,URINE MODERATE /HPF; SQUAMOUS EPITHELIAL CELL,UR 25-50 /HPF
[2022-03-18 16:00] LABS: ALANINE AMINOTRANSFERASE 18 U/L (0-55); ALBUMIN 3.8 GM/DL (3.2-4.5); ALKALINE PHOSPHATASE 60 U/L (40-136); BILIRUBIN,TOTAL 0.4 MG/DL (0.1-1.0); BUN/CREATININE RATIO 24; CALCIUM 9.3 MG/DL (8.5-10.1); CARBON DIOXIDE 27 MMOL/L (21-32); CHLORIDE 101 MMOL/L (98-107); GFR ESTIMATED 118; GLUCOSE 258 MG/DL (70-105); MAGNESIUM 1.7 MG/DL (1.6-2.4); POTASSIUM 4.7 MMOL/L (3.6-5.0); SODIUM 137 MMOL/L (135-145); TOTAL PROTEIN 6.5 GM/DL (6.4-8.2)
[2022-03-18 16:01] LABS: AMPHETAMINE SCREEN, URINE NEGATIVE (NEGATIVE); BARBITURATE SCREEN URINE NEGATIVE (NEGATIVE); BENZODIAZEPINES SCREEN URINE NEGATIVE (NEGATIVE); CANNABINOID SCREEN, URINE POSITIVE (NEGATIVE); COCAINE SCREEN URINE NEGATIVE (NEGATIVE); METHADONE STAT NEGATIVE (NEGATIVE); OPIATE SCREEN URINE NEGATIVE (NEGATIVE); OXYCODONE STAT NEGATIVE (NEGATIVE); PROPOXYPHENE STAT NEGATIVE (NEGATIVE); TRICYCLIC ANTIDEPRESSANTS SCRE NEGATIVE (NEGATIVE)
[2022-03-18] MEDS ORDERED: CATHETER FLUSH 10 ML SYR IV PRN (16:15)
[2022-03-18] MEDS ORDERED: NS 100 ML (IVPB) BAG IV ONE (16:15)
[2022-03-18] MEDS ORDERED: IOHEXOL 350 MG/ML 100 ML (OMNIPAQUE 350) VIAL IV ONE (16:15)
[2022-03-18] MEDS ORDERED: HOLD METFORMIN - RECEIVED CONTRAST 20 ML VIAL IV SCH (16:15)
--- NOTE | 2022-03-18 16:58 | Diagnostic Imaging Report ---
PROCEDURE: CT abdomen and pelvis with contrast. TECHNIQUE: Multiple contiguous axial images were obtained through the abdomen and pelvis after administration of intravenous contrast. Auto Exposure Controls were utilized during the CT exam to meet ALARA standards for radiation dose reduction. All CT scans use one or more of the following dose optimizing techniques: automated exposure control, MA and/or KvP adjustment based on patient size and exam type or iterative reconstruction. DATE: March 18, 2022. COMPARISON: CT pelvis March 06, 2022. CT chest, abdomen and pelvis January 15, 2022. INDICATION: 46-year-old female, abdominal pain and nausea. FINDINGS: The visualized portions of the lung bases are clear. The heart is not enlarged. There is no identified pericardial effusion. The liver is unremarkable in size and contour. There is no identified liver lesion. The main, right and left portal veins are patent. The gallbladder is surgically absent. There is no biliary ductal dilation. The main pancreatic duct is not abnormally dilated. Evaluation of the pancreatic parenchyma is unremarkable. The spleen is normal in size. The adrenal glands are unremarkable. There are areas of right renal cortical scarring and also of left renal cortical scarring. The urinary collecting systems are not distended. There is no identified renal or ureteral stone. There are pelvic calcifications consistent with phleboliths. The urinary bladder is grossly unremarkable. The uterus is not seen and may be surgically absent. The intestinal tract is not distended. There is no evidence of acute appendicitis. There is no free intraperitoneal air. There is no drainable fluid collection. There is no free fluid in the abdomen or pelvis. There is mild distal small bowel wall thickening of the pelvis. There are atherosclerotic calcifications. There is no identified abnormally enlarged lymph node in the abdomen or pelvis meeting CT size criteria for adenopathy. There is no identified acute bony abnormality. IMPRESSION: CT abdomen and pelvis: 1. Wall thickening of small bowel in the pelvis which may relate to a nonspecific enteritis. Dictated by: Dictated on workstation # [id number]
[2022-03-18 17:38] VITALS: BP 129/80
== END 2022-03-18 17:37 ==
LOC: EDUNIT# 15:06 → ER FS 15:07
DX: G40.909 Epilepsy, unspecified, not intractable, without status epilepticus (principal); K52.9 Noninfective gastroenteritis and colitis, unspecified; F12.10 Cannabis abuse, uncomplicated; E11.9 Type 2 diabetes mellitus without complications; Z79.4 Long term (current) use of insulin; Z88.5 Allergy status to narcotic agent; Z87.19 Personal history of other diseases of the digestive system; Z85.028 Personal history of other malignant neoplasm of stomach; Z92.21 Personal history of antineoplastic chemotherapy
CPT/HCPCS: 36415; 74177; 80053; 80306; 81000; 83690; 83735; 84703; 85025; 99284; G0480; 80320; Q9967